=== PATIENT | female | born 1960 | race Caucasian/White ===

== ENCOUNTER → 2018-02-08 13:02 | Outpatient (CLI) | payer MEDICAID, SELFPAY ==
--- NOTE | 2018-02-08 13:15 | CT_ITS ---
STUDY: LOW DOSE CT LUNG CANCER SCREENING REASON FOR EXAM: Female, 57 years old. COPD. Tobacco abuse. RADIATION DOSAGE (If Supplied By Facility): CTDIvol = ( 2.01 ) mGy, DLP = ( 59.92 ) mGycm TECHNIQUE: No contrast was administered. Low dose technique was utilized (average mAS-38 and kVp 120). 1.25 mm axial source images with a slice interval of 1.25-mm were reconstructed in lung windows. 2.5 mm axial source images with a slice interval of 2.5-mm were reconstructed in lung windows. 5.0 mm axial source images with a slice interval of 5.0-mm were reconstructed in soft tissue windows. Nodule measured using lung windows on PACS and/or independent workstation with automated measurement of minimum and maximum diameter. Nodule measurement reported as average diameter rounded to the nearest whole number. Growth is defined as an increase ins size of greater than 1.5 mm. COMPARISON: None. NODULES: Total lung nodules (excluding granulomas): 0 Emphysema: There is emphysematous changes of the lungs.. A small right pleural effusion which invaginates into the upper oblique fissure. At the right lung base there is a air containing focus containing soft tissue along the posterior pleural margin right lower lobe suggesting a cavitary lesion. This measures 3.5 x 1.3 x 2.8 cm. Endobronchial lesion: None Aorta: There is atherosclerotic changes of the thoracic aorta without aneurysm. Coronary arteries: There are coronary artery calcifications. Heart: The heart is normal in size. There is a small pericardial effusion. Pulmonary artery: Normal Mediastinal nodes: There is nonspecific subcentimeter paratracheal and precarinal lymphadenopathy. Other chest and abdominal findings: There are minimal degenerative changes lumbar spine. There is diffuse ascites seen within the abdomen. CT/Low Dose CT Lung Screening IMPRESSION: Lung-RADS category S IMPORTANT NOTES FOR USE: ACR Lung-RADS Version 1.0 Assessment Categories Release Date: September 11, 2013 Category: Coded 0-4 bases on nodule(s) with highest degree of suspicion. Negative screen is defined as categories 1 and 2; a positive screen is defined as categories 3 and 4. Category 3 and 4A nodules that are unchanged on interval CT should be coded as category 2, and individuals returned to screening in 12 months. Category 4X: Category 3 or 4 nodules with additional imaging findings that increase the suspicion of lung cancer, such as spiculation, GGN that doubles in size in 1 year, enlarged lymph notes, etc. Category Modifiers: S (significant finding unrelated to lung cancer) and C (prior history of treated lung cancer) may be added to the 0-4 Lung-RADS Electronically Signed: Reggie Molina DO at 19:40 EDT Tel [phone], Service support ,
== END ==
PROVIDERS: Referring Provider Nurse Practitioner Family; Visit Provider Nurse Practitioner Family
DX: J44.9 Chronic obstructive pulmonary disease, unspecified (principal)
CPT/HCPCS: G0297

== ENCOUNTER → 2018-02-19 08:32 | Outpatient (CLI) | payer MEDICAID, SELFPAY ==
--- NOTE | 2018-02-19 08:47 | BI_ITS ---
MAMMOGRAPHY - BILATERAL SCREENING 3-D NAIDA SYNTHESIS REASON FOR EXAM: Female, 57 years old. Bilateral Screening 3-D tomosynthesis PERTINENT HISTORY: Asymptomatic. Recent loss 50 pounds. Recent diagnosis cirrhosis. No significant family history given. TECHNIQUE: 2-D mammograms and 3-D Naida synthesis of the breast (s) were performed. CAD was performed. COMPARISON: None available. FINDINGS: The breast composition is composed of scattered fibroglandular density. Scattered benign calcifications are seen. No dense spiculated masses or suspicious microcalcifications are identified. No architectural distortion is identified. There is no nipple retraction. However, periareolar bilateral skin thickening is suggested versus compression. BI/SCREENING MAMM (CAD), BILAT IMPRESSION: No definitive mammographic sign of malignancy identified. Increased density areolar and periareolar regions bilaterally, may be due to skin thickening versus compression projection. Also chest wall edema patient with cirrhosis and ascites may be present bilaterally. Clinical correlation recommended. Routine yearly mammograms recommended. ASSESSMENT CATEGORY: BIRADS Category 2: Benign. A letter regarding these results will be sent to the patient by the facility within 30 days. FOLLOW UP RECOMMENDATION: Yearly follow up mammogram recommended. (A) Clinical correlation recommended for periareolar bilateral skin thickening versus compression projection recommended. Comparison to any prior mammograms would be helpful. Negative mammographic results should not deter biopsy as a palpable lesion should be followed based on clinical grounds and biopsy performed if clinically persistent for 3 months or increasing size. Approximately 10% of breast cancers are not detected by mammography. A normal mammogram should not delay biopsy of a clinically suspicious abnormality. Dense breast tissue may obscure neoplasm. Electronically Signed: Sahil Francisco, at 18:02 EDT Tel , Service support ,
== END ==
PROVIDERS: Referring Provider Nurse Practitioner Family; Visit Provider Nurse Practitioner Family
DX: Z12.31 Encounter for screening mammogram for malignant neoplasm of breast (principal)
CPT/HCPCS: 77063; 77067

== ENCOUNTER → 2018-03-09 12:11 | Outpatient (CLI) | payer MEDICAID, SELFPAY ==
[2018-03-09 12:42] VITALS: PULSE 102; PULSE 104; PULSE 106; PULSE 107; PULSE 91; PULSE 94; O2SAT 100
--- NOTE | 2018-03-10 11:19 | PCM.PSN.6M ---
PSN 6 Minute Walk Test - 6 Minute Walk Test 6 Minute Walk Test: 6 Minute Walk Test PSN:6-Minute Walk Test Start: 03/09/18 12:42 Freq: Status: Active Protocol: RESP.6MINW Document 03/09/18 12:42 YADI (Rec: 03/09/18 12:46 YADI [id number]) 6 Minute Walk Test Date Performed 03/09/18 Time Performed 12:30 Height 5 ft Weight: 115 lb Weight in Pounds 115.[address]: Israel Gonzalez Assistive device used: None Pre-test Oxygen Delivery Method Room Air Pulse Ox (%) 100 Pulse Rate (60-100 beats/min) 94 Dyspnea Anthony Scale (0-10) 0.5 Exertion Anthony Scale (6-20) 6 1st minute Oxygen Delivery Method Room Air Pulse Ox (%) 100 Pulse Rate (60-100 beats/min) 102 H 2nd minute Oxygen Delivery Method Room Air Pulse Ox (%) 100 Pulse Rate (60-100 beats/min) 107 H 3rd minute Oxygen Delivery Method Room Air Pulse Ox (%) 100 Pulse Rate (60-100 beats/min) 106 H 4th minute Oxygen Delivery Method Room Air Pulse Ox (%) 100 Pulse Rate (60-100 beats/min) 104 H 5th minute Oxygen Delivery Method Room Air Pulse Ox (%) 100 Pulse Rate (60-100 beats/min) 104 H 6th minute Oxygen Delivery Method Room Air Pulse Ox (%) 100 Pulse Rate (60-100 beats/min) 102 H Dyspnea Anthony Scale (0-10) 0.5 Exertion Anthony Scale (6-20) 12 Post-test Oxygen Delivery Method Room Air Pulse Ox (%) 100 Pulse Rate (60-100 beats/min) 91 Full Laps Walked 15 Partial Lap, Number of Tiles Walked 20 Total Distance Walked (ft) 905 - Interpretation Interpretation: The patient ambulated 905 feet over the course of 6 minutes beginning on room air without assistive devices or breaks. Pretesting oxygen saturation was noted to be 100% on room air. With ambulation, the kike oxygen saturation was 100%. There was no significant exertional oxygen desaturation. - Recommendations Recommendations: There is no indication for the use of supplemental oxygen.
== END ==
PROVIDERS: Referring Provider Internal Medicine Critical Care Medicine; Visit Provider Internal Medicine Critical Care Medicine
DX: J44.9 Chronic obstructive pulmonary disease, unspecified (principal); F17.210 Nicotine dependence, cigarettes, uncomplicated
CPT/HCPCS: 94618

== ENCOUNTER → 2018-03-10 13:19 | Outpatient (CLI) | payer MEDICAID, SELFPAY ==
--- NOTE | 2018-03-10 13:21 | CT_ITS ---
STUDY: CT CHEST WITH CONTRAST REASON FOR EXAM: Female, 57 years old. Shortness of breath, cough, follow-up right-sided lung nodule RADIATION DOSAGE (If Supplied By Facility): CTDIvol = ( 10.05 ) mGy, DLP = ( 229.44 ) mGycm TECHNIQUE: Transaxial imaging was performed following intravenous administration of 100 ml of Isovue 300 contrast material. Individualized dose optimization techniques were used for this CT. COMPARISON: Prior study of 02/08/2018 FINDINGS: There is a pleural-based density of the posterior right lung base measuring 3.0 x 1.4 x 2.4 cm slightly decreased in size in the interval. This previously measured 3.5 x 1.3 x 2.8 cm. There has been interval resolution of a small right-sided effusion noted previously. The heart size is within normal limits. There is a trace pericardial effusion. Coronary arterial calcific lesions are present. Normal mediastinum. Normal hilar regions. Normal enhanced pulmonary arteries. The calcified plaques of the thoracic aorta. There are multi-level degenerative changes of the thoracic spine. There is a large amount of intra-abdominal ascites. There is a subcentimeter low-attenuation focus at the dome of the right hepatic lobe measuring cyst density. CT/Chest WITH Contrast IMPRESSION: Decrease in size of previously noted pleural-based density of the posterior right lung base previously measuring 3.0 x 1.4 x 2.[address] follow-up is recommended. There has been interval resolution of a small right-sided effusion previously noted. Trace pericardial effusion. Large amount of intra-abdominal ascites. Electronically Signed: Joon Rubio MD at 21:01 EDT , Service support ,
== END ==
PROVIDERS: Referring Provider Internal Medicine Critical Care Medicine; Visit Provider Internal Medicine Critical Care Medicine
DX: R93.89 Abnormal findings on diagnostic imaging of other specified body structures (principal)
CPT/HCPCS: 71260; Q9967

== ENCOUNTER → 2018-03-24 12:42 | Outpatient (CLI) | payer MEDICAID, SELFPAY ==
--- NOTE | 2018-03-25 08:22 | PFT ---
INTRODUCTION: The patient is a 57-year-old female that presents for pulmonary function studies secondary to a diagnosis of COPD. Respiratory therapy reports good patient effort. Bronchodilators were used during testing. INTERPRETATION: Forced expiration spirometry demonstrates the presence of a mild large airways obstructive ventilatory defect. There was no significant response to aerosolized bronchodilators. Spirograms are of good quality and do not plateau indicating slow emptying of the lungs. Body plethysmography was performed and reveals a mildly elevated TLC to 122% of predicted, indicative of a mild degree of hyperinflation. Diffusing capacity by single breath CO is within normal limits at 76% of predicted. IMPRESSION: These pulmonary function studies demonstrate the presence of an irreversible mild large airways obstructive ventilatory defect with an associated very mild degree of hyperinflation and preserved diffusing capacity.
== END ==
PROVIDERS: Referring Provider Internal Medicine Critical Care Medicine; Visit Provider Internal Medicine Critical Care Medicine
DX: J44.9 Chronic obstructive pulmonary disease, unspecified (principal); F17.210 Nicotine dependence, cigarettes, uncomplicated
CPT/HCPCS: 94060; 94726; 94729

== ENCOUNTER → 2018-04-20 13:11 | Outpatient (CLI) | payer MEDICAID, SELFPAY ==
[2018-04-13 13:03] VITALS: BMI 22.6
[2018-04-20 13:35] LABS: Platelet Count 200 K/mm3 (150-450)
[2018-04-20 13:46] LABS: International Normalized Ratio 1.7; Prothrombin Time (Protime)PT. 20.3 SECONDS (11.7-14.9)
[2018-04-20 13:47] LABS: Partial Thromboplast Time 39.3 Seconds (24.1-36.2)
== END ==
PROVIDERS: Visit Provider Nurse Practitioner Acute Care
DX: R91.8 Other nonspecific abnormal finding of lung field (principal)
CPT/HCPCS: 36415; 85049; 85610; 85730

== ENCOUNTER → 2018-04-26 09:57 | Outpatient (CLI) | payer MEDICAID, SELFPAY ==
[2018-04-13 13:03] VITALS: BMI 22.6
[2018-04-26 10:37] LABS: International Normalized Ratio 1.7; Prothrombin Time (Protime)PT. 19.9 SECONDS (11.7-14.9)
[2018-04-26 10:38] LABS: Partial Thromboplast Time 37.9 Seconds (24.1-36.2)
--- OUTSIDE RECORDS SUMMARY | 2018-06-12 10:16 | XMS RPT_ITS ---
:1960 Author Organization OHIP Support Name Relationship Address Phone YAEL MATTHEWSA Unavailable Unavailable + APALACHICOLAANJELICACECIL Unavailable [address] + [place] [address] APALACHICOLA, CECIL Unavailable Unavailable + APALACHICOLA, CECIL Unavailable [address] + [place] [address] APALACHICOLA, CECIL Unavailable [address] + [place] [address] UE Unavailable Unavailable Unavailable BYRON, CECIL Unavailable [address] + [place] [address] UE Unavailable Unavailable Unavailable BYRON, CECIL Unavailable [address] + [place] [address] UE Unavailable Unavailable Unavailable BYRON, CECIL Unavailable [address] + [place] [address] UE Unavailable Unavailable Unavailable BYRON, CECIL Unavailable [address] + [place] [address] UE Unavailable Unavailable Unavailable BYRON, CECIL Unavailable Unavailable + APALACHICOLA, CECIL Unavailable [address] + [place] [address] BYRON, CECIL Unavailable Unavailable + BYRON, CECIL Unavailable [address] + [place] [address] BYRON, CECIL Unavailable Unavailable + BYRON, CECIL Unavailable [address] + [place] [address] BYRON, CECIL Unavailable Unavailable + BYRON, CECIL Unavailable [address] + [place] [address] BYRON, CECIL Unavailable [address] + [place] [address] UE Unavailable Unavailable Unavailable BYRON, CECIL Unavailable Unavailable + BYRON, CECIL Unavailable [address] + [place] [address] BYRON, CECIL Unavailable [address] + [place] [address] UE Unavailable Unavailable Unavailable BYRON, CECIL Unavailable [address] + [place] [address] UE Unavailable Unavailable Unavailable BYRON, CECIL Unavailable Unavailable + BYRON, CECIL Unavailable [address] + [place] [address] BYRON, CECIL Unavailable [address] + [place] [address] UE Unavailable Unavailable Unavailable BYRON, CECIL Unavailable Unavailable + BYRON, CECIL Unavailable [address] + [place] [address] BYRON, CECIL Unavailable [address] + [place] [address] UE Unavailable Unavailable Unavailable BYRON, CECIL Unavailable Unavailable + BYRON, CECIL Unavailable [address] + [place] [address] BYRON, CECIL Unavailable Unavailable + BYRON, CECIL Unavailable [address] + [place] [address] BYRON, CECIL Unavailable [address] + [place] [address] UE Unavailable Unavailable Unavailable BYRON, CECIL Unavailable [address] + [place] [address] UE Unavailable Unavailable Unavailable BYRON, CECIL Unavailable Unavailable + BYRON, CECIL Unavailable [address] + [place] [address] BYRON, CECIL Unavailable Unavailable + BYRON, CECIL Unavailable [address] + [place] [address] BYRON, CECIL Unavailable [address] + [place] [address] UE Unavailable Unavailable Unavailable BYRON, CECIL Unavailable [address] + [place] [address] UE Unavailable Unavailable Unavailable BYRON, CECIL Unavailable [address] + [place] [address] UE Unavailable Unavailable Unavailable BYRON, CECIL Unavailable Unavailable + BYRON, CECIL Unavailable [address] + [place] [address] BYRON, CECIL Unavailable [address] + [place] [address] UE Unavailable Unavailable Unavailable BYRON, CECIL Unavailable Unavailable + BYRON, CECIL Unavailable [address] + [place] [address] BYRON, CECIL Unavailable [address] + [place] [address] UE Unavailable Unavailable Unavailable BYRON, CECIL Unavailable Unavailable + BYRON, CECIL Unavailable [address] + [place] [address] BYRON, CECIL Unavailable Unavailable + BYRON, CECIL Unavailable [address] + [place] [address] BYRON, CECIL Unavailable [address] + [place] [address] UE Unavailable Unavailable Unavailable BYRON, CECIL Unavailable Unavailable + BYRON, CECIL Unavailable [address] + [place] [address] BYRON, CECIL Unavailable Unavailable + BYRON, CECIL Unavailable [address] + [place] [address] BYRON, CECIL Unavailable Unavailable + BYRON, CECIL Unavailable [address] + [place] [address] BYRON, CECIL Unavailable [address] + [place] [address] APALACHICOLA, CECIL Unavailable [address] + [place] [address] BYRON, CECIL Unavailable Unavailable + BYRON, CECIL Unavailable [address] + [place] [address] BYRON, CECIL Unavailable [address] + [place] [address] BYRON, CECIL Unavailable Unavailable + BYRON, CECIL Unavailable Unavailable + BYRON, CECIL Unavailable Unavailable + BYRON, CECIL Unavailable Unavailable + BYRON, CECIL Unavailable Unavailable + BYRON, CECIL Unavailable Unavailable + BYRON, CECIL Unavailable Unavailable + BYRON, CECIL Unavailable Unavailable + BYRON, CECIL Unavailable Unavailable + BYRON, CECIL Unavailable Unavailable + BYRON, CECIL Unavailable Unavailable + Care Team Providers Name Role Phone CMBRITTANIE Attending Unavailable PHYSICIAN, NONE Primary Care Unavailable CLARENCE SHAIKH MD Consulting Unavailable PHYSICIAN, NONE Primary Care Unavailable CLARENCE SHAIKH MD Admitting Unavailable CLARENCE SHAIKH MD Attending Unavailable YOSHI MLULINS MD Consulting Unavailable CLARENCE SHAIKH MD Consulting Unavailable CLARENCE SHAIKH MD Attending Unavailable PHYSICIAN, NONE Primary Care Unavailable CLARENCE SHAIKH MD Attending Unavailable CLARENCE SHAIKH MD Primary Care Unavailable REFERRING REFERRING, PHY PHY WO ID~[id number] Primary Care Unavailable ARIAN DUNHAM, DR. SHEILA aGmino Attending Unavailable RIK SIMENTAL Attending Unavailable REFERRING REFERRING, PHY PHY WO ID~[id number] Primary Care Unavailable CLARENCE SHAIKH MD Primary Care Unavailable YESSENIA FERNANDES DO Attending Unavailable ANDRESSA VELOZ Attending Unavailable CLARENCE SHAIKH MD Primary Care Unavailable PHYSICIAN, NONE Primary Care Unavailable YOSHI MULLINS MD Consulting Unavailable CLARENCE JEFFERSON Attending Unavailable YOSHI MULLINS MD Referring Unavailable CLARENCE JEFFERSON Attending Unavailable PHYSICIAN, NONE Primary Care Unavailable KELLEY RAMIREZ MD. JOYCE W Consulting Unavailable KELLEY RAMIREZ MD. JOYCE Rodriguez Admitting Unavailable KELLEY RAMIREZ MD. JOYCE Rodriguez Attending Unavailable SWIHART ELECTRONIC SCALE SUBASSEMBLER, KD L Primary Care Unavailable YOSHI MULLINS MD Attending Unavailable SWIHART ELECTRONIC SCALE SUBASSEMBLER, KD L Primary Care Unavailable YOSHI MULLINS MD Attending Unavailable SWIHART ELECTRONIC SCALE SUBASSEMBLER, KD L Primary Care Unavailable YOSHI MULLINS MD Attending Unavailable SWIHART ELECTRONIC SCALE SUBASSEMBLER, KD L Primary Care Unavailable YOSHI MULLINS MD Attending Unavailable SWIHART ELECTRONIC SCALE SUBASSEMBLER, KD L Primary Care Unavailable YOSHI MULLINS MD Attending Unavailable SWIHART ELECTRONIC SCALE SUBASSEMBLER, KD L Primary Care Unavailable YOSHI MULLINS MD Attending Unavailable SWIHART ELECTRONIC SCALE SUBASSEMBLER, KD L Primary Care Unavailable YOSHI MULLINS MD Attending Unavailable SWIHART ELECTRONIC SCALE SUBASSEMBLER, KD L Primary Care Unavailable YOSHI MULLINS MD Attending Unavailable SWIHART ELECTRONIC SCALE SUBASSEMBLER, KD L Primary Care Unavailable YOSHI MULLINS MD Attending Unavailable SWIHART ELECTRONIC SCALE SUBASSEMBLER, KD L Primary Care Unavailable YOSHI MULLINS MD Attending Unavailable SWIHART ELECTRONIC SCALE SUBASSEMBLER, KD L Primary Care Unavailable YOSHI MULLINS MD Attending Unavailable SWIHART ELECTRONIC SCALE SUBASSEMBLER, KD L Primary Care Unavailable YOSHI MULLINS MD Attending Unavailable SWIHART ELECTRONIC SCALE SUBASSEMBLER, KD L Primary Care Unavailable YOSHI MULLINS MD Attending Unavailable SWIHART ELECTRONIC SCALE SUBASSEMBLER, KD L Primary Care Unavailable YOSHI MULLINS MD Attending Unavailable SWIHART ELECTRONIC SCALE SUBASSEMBLER, KD L Primary Care Unavailable YOSHI MULLINS MD Attending Unavailable SWIHART ELECTRONIC SCALE SUBASSEMBLER, KD L Primary Care Unavailable YOSHI MULLINS MD Attending Unavailable SWIHART ELECTRONIC SCALE SUBASSEMBLER, KD L Primary Care Unavailable YOSHI MULLINS MD Attending Unavailable SWIHART ELECTRONIC SCALE SUBASSEMBLER, KD L Primary Care Unavailable YOSHI MULLINS MD Attending Unavailable SWIHART ELECTRONIC SCALE SUBASSEMBLER, KD L Primary Care Unavailable YOSHI MULLINS MD Attending Unavailable SWIHART ELECTRONIC SCALE SUBASSEMBLER, KD L Primary Care Unavailable YOSHI MULLINS MD Attending Unavailable SWIHART ELECTRONIC SCALE SUBASSEMBLER, KD L Primary Care Unavailable YOSHI MULLINS MD Attending Unavailable SWIHART ELECTRONIC SCALE SUBASSEMBLER, KD L Primary Care Unavailable YOSHI MULLINS MD Attending Unavailable PHYSICIAN, NONE Primary Care Unavailable YOSHI MULLINS MD Attending Unavailable PHYSICIAN, NONE Primary Care Unavailable YOSHI MULLINS MD Attending Unavailable PHYSICIAN, NONE Primary Care Unavailable YOSHI MULLINS MD Attending Unavailable PHYSICIAN, NONE Primary Care Unavailable Tasia Jenkins Attending Unavailable Tasia Jenkins Referring [facility]available [facility] Primary Care Unavailable Israel Gonzalez D.O. Attending Unavailable Israel Gonzalez D.O. Referring Unavailable Tasia Jenkins Attending Unavailable [facility] Referring Unavailable [facility] Primary Care Unavailable Ashelfah, Ghasem Admitting Unavailable Ashelfah, Ghasem Referring Unavailable Isai Brown Attending Unavailable Ashelfah, Ghasem Admitting Unavailable Ashelfah, Ghasem Attending Unavailable Ashelfah, Ghasem Referring Unavailable [facility] Primary Care Unavailable Ashelfah, Ghasem Consulting Unavailable Ashelfah, Ghasem Admitting Unavailable Sebastien Frances Attending Unavailable Ashelfah, Ghasem Referring Unavailable [facility] Primary Care Unavailable Kevin, Isai Consulting Unavailable Joaquint NASRIN Kd Referring Unavailable [facility] Primary Care Unavailable [place] NASRIN, Kd Consulting Unavailable Kd Huff Attending Unavailable [place] MARKETING PRODUCTION COORDINATOR, Kd Referring Unavailable [facility] Primary Care Unavailable Swiyves ALEXANDRA Kd Attending Unavailable Israel Brown, D.O. Attending Unavailable [facility] Referring Unavailable Israel Gonzalez D.O. Attending Unavailable Israel Gonzalez D.O. Referring Unavailable [facility] Primary Care Unavailable Kayla ALEXANDRA, Kd Consulting Unavailable Israel Gonzalez D.O. Attending Unavailable Israel Gonzalez D.O. Referring Unavailable [facility] Primary Care Unavailable Kayla ALEXANDRA, Kd Consulting Unavailable Israel Gonzalez D.O. Attending Unavailable Israel Gonzalez D.O. Referring Unavailable [facility] Primary Care Unavailable Kayla ALEXANDRA, Kd Consulting Unavailable [place]helf[place], Ghasem Admitting Unavailable Autumn Segovia NP-C Attending Unavailable Ashelfah, Ghasem Referring Unavailable [facility] Primary Care Unavailable Kevin, Isai Consulting Unavailable Ashelfah, Ghasem Admitting Unavailable Kevin, Isai Attending Unavailable Ashelfah, Ghasem Referring Unavailable [facility] Primary Care Unavailable Kevin, Isai Consulting Unavailable Israel Gonzalez D.O. Attending Unavailable Israel Gonzalez D.O. Referring Unavailable Tasia Jenkins Attending Unavailable [facility] Referring Unavailable Tasia Jenkins Attending Unavailable Tasia Jenkins Referring Unavailable [facility] Primary Care Unavailable Kayla ALEXANDRA, Kd Consulting Unavailable Tasia Jenkins Attending Unavailable [facility] Primary Care Unavailable PROBLEMS PROBLEMS DATE TYPE CONDITION / CODE ATTENDING STATUS SOURCE 04/27/2018 Unknown R91.8 - Other Jenkins, Active Stanley nonspecific [facility] abnormal finding of Hospital lung field / Repository R91.8(ICD-10) 04/29/2018 Unknown J44.9 - Chronic Israel Gonzalez, Active [place] obstructive D.O. [facility] pulmonary disease, Hospital unspecified / Repository J44.9(ICD-10) 03/09/2018 Unknown F17.210 - Nicotine Israel Gonzalez, Active [place] dependence, D[facility], [facility] uncomplicated / Repository F17.210(ICD-10) 03/01/2018 Unknown R93.89 - Abnormal Israel Gonzalez, Active [place] findings on D.[facility]. [facility] other specified Repository body structures / R93.89(ICD-10) 03/28/2018 Unknown Z12.31 - Encounter Kayla ALEXANDRA, Active [place] for screening [facility] mammogram for [facility] malignant neoplasm Repository of breast / Z12.31(ICD-10) PROCEDURES PROCEDURES No Procedure Records FoundRESULTS RESULTS EMERGENCY DEPARTMENT Observed: 06/06/2018 Status: F Source: [place] SUMMARY 9:22 PM [facility] HOSPITAL REPOSITORY [facility] Medical Records Department [address] [place] [address] Emergency Department Summary 05/31/18 1453 MR#: [id number] Acct: [id number] Name: KEYLA MATTHEWS Rep #: [id number] : 1960 58 From: Evelyn Fuentes MD PCP: [facility] Status: DIS IN - ER Visit Summary Date of Service: 05/31/18 Chief Complaint: Abdominal pain, nausea and vomiting History of Present Illness: The patient is a 58 F who presents for 5 days of worsening abdominal pain and 3 days of nausea and vomiting. Patient has a history of cirrhosis and receives a weekly therapeutic paracentesis. 5 days ago she began having epigastric pain beyond her baseline. She had her therapeutic paracentesis and an albumin infusion the next day, with no improvement of her pain. 3 days ago she began having nausea and vomiting. She has not kept anything down since then. She denies any coffee-ground emesis or hematemesis. She denies diarrhea and states her stools were normal but then decreased in frequency. Today she had a black mucousy stool. She denies fever, chest pain, shortness of breath beyond her baseline, or any other complaints. Patient is a smoker and has lung issues. She uses an albuterol inhaler. She has not been able to keep any of her medications down since Wednesday. Physical Examination: Vital signs: afebrile, hemodynamically stable, no hypoxia on room air General: Cachectic with a protruding abdomen, in no distress Skin: warm, dry, no rash, no pallor, old bruises noted on the upper extremities HEENT: normocephalic and atraumatic; PERRL, EOMI, dry mucous membranes Cardiovascular: regular rate and rhythm without murmurs, no peripheral edema, 2+ pulses all distal extremities Respiratory: No increased work of breathing, lungs are diffusely rhonchorous consistent with smoker's lung Abdominal: Abdomen is distended, diffuse tenderness especially in the epigastrium, no guarding or rebound, no masses, rectal exam showed good tone, nontender, brown stool on glove MSK: Moves all extremities, no deformities, normal strength Neuro: Awake and alert, oriented 4. No facial droop, sensation and motor function intact and symmetric Test Results: Abnormal Lab Results WBC 17.2 H Medications Given Albumin Human () 25 gm in 100 mls @ 60 mls/hr IV X1 ONE Stop: 05/31/18 18:27 Discontinued Medications Sodium Chloride () 1,000 mls @ 500 mls/hr IV .Q2H ONE Stop: 05/31/18 16:50 Last Admin: 05/31/18 15:16 Dose: 500 mls/hr Piperacillin Sod/Tazobactam Sod (Zosyn) 3.375 gm in 50 mls @ 100 mls/hr IV X1 ONE Stop: 05/31/18 17:08 Morphine Sulfate () 4 mg IV X1 ONE Stop: 05/31/18 14:52 Last Admin: 05/31/18 15:16 Dose: 4 mg Morphine Sulfate () 4 mg IV X1 ONE Stop: 05/31/18 17:13 Ondansetron HCl (Zofran) 4 mg IV X1 ONE Stop: 05/31/18 14:52 Last Admin: 05/31/18 15:16 Dose: 4 mg Emergency Department Course and Treatment: Patient was given IV fluids, morphine and Zofran for symptomatic relief. Patient is afebrile. Because her main pain complaint is epigastric, and there is little differentiation in her habitus between her epigastrium and her lower substernal region, EKG and troponin were included in the workup. EKG showed NSR with no ischemic changes. Because patient does have severe cirrhosis with ascites, spontaneous bacterial peritonitis is high on the differential. CT abdomen and pelvis was performed to look for alternative causes of patient's abdominal pain. She does have significant leukocytosis of 17,000. Because of the worse pain than normal and the leukocytosis, a therapeutic paracentesis was performed and patient was started empirically on Zosyn for treatment of spontaneous bacterial peritonitis. Fluid analysis is pending. Patient was also given albumin, as she has elevated bilirubin, creatinine, and hypoalbuminemia. Diagnostic Paracentesis procedure note: Consent was obtained. A large fluid pocket in the lateral left lower quadrant was identified using bedside ultrasound. The area was prepped and draped in a sterile fashion. The area was locally anesthetized with 1% lidocaine. A small sherman was performed to the skin and a 21-gauge needle was introduced into the peritoneal cavity. There was immediate return of clear yellow ascitic fluid. 40 cc was collected. The needle was withdrawn and patient tolerated the procedure well. No ascitic fluid leak was noted. There was no hemorrhage after the procedure. Patient was discussed with Dr. Miranda and admitted for IV antibiotics and further treatment of suspected spontaneous bacterial peritonitis while the cultures are pending. Treatment Plan: [] Disposition: Impression: Abdominal pain, history of cirrhosis with ascites, concern for spontaneous bacterial peritonitis, chronic kidney disease This note was generated with [email or web address] dictation software. It may contain incorrect words, spelling, and punctuation that were not noted in review of the chart prior to signing ED Disposition - Plan for ED Patient: Chief Complaint: Abd Pain Referrals: Anish Lawrence,St[facility] Green [Primary Care Provider] - What to do if you have Problems For any increased pain, shortness of breath, bleeding, nausea or vomiting, chest pain, or any unexpected problems, contact your Primary Care Provider. Call [facility] ([phone]) or report to the closest Emergency Room. Call 911 if necessary. 06/06/182121 <Electronically signed by Evelyn Fuentes MD> Date Evelyn Fuentes MD Cosigner Signature (If Indicated): Date CC: [facility] DISCHARGE SUMMARY Observed: 06/03/2018 Status: F Source: NICOLETTE 5:28 PM [facility] REPOSITORY [facility] Medical Records Department [address] [place] [address] Discharge Summary 06/03/18 1138 MR#: [id number] Acct: [id number] Name: KEYLA MATTHEWS Rep #: [id number] : 1960 58 From: Isai Brown MD PCP: [facility] Status: DIS IN Y [id number] Date and Diagnosis Date of Admission: 05/31/18 Date of Discharge: 06/03/18 - Primary Discharge Diagnosis Active and Suspected Problems (Last Reviewed 05/04/18 @ 13:46 by YEMI Caldwell) Anemia (Acute) Renal failure (Acute) Spontaneous bacterial peritonitis (Suspected) - Secondary Discharge Diagnosis Chronic Problems (Last Reviewed 05/04/18 @ 13:46 by Tasia Jenkins NP-C) Alcoholic cirrhosis of liver (Chronic) Tobacco abuse (Chronic) Stage 1 mild COPD by GOLD classification (Chronic) Lung mass (Chronic) Hospital Course and Treatment Summary of Care Provided: The patient is a 58 year old F with history of alcoholic cirrhosis decompensated with ascites and splenomegaly had therapeutic paracentesis on 06/01/2018. 210 mL brad colored fluid was drained under ultrasound guidance. Fluid analysis shows total WBC 195 with 47 polynuclear cells that is negative for SBP. Gram stain of fluid culture still not show growth. Fluid total protein is 1.7. when Ascites fluid total protein is less than 1.1, suspicion for SBP is high. Continue ceftriaxone on the basis of clinical suspicion Low-dose Motrin for musculoskeletal rib pain and pain got better. And the pain got better. 1. Possible SBP, status post [id number] paracentesis 06/01/2018 with removal of 2810 mL. Patient receives weekly paracentesis at [facility]. CT of abdomen on admission showed a cirrhosis, ascites, distended gallbladder without stones, bowel wall thickening consistent with possible colitis. Demineralization and numerous compression fractures. Paracentesis fluid cultures pending. Leukocytosis improved. Had ceftriaxone and discharged on Cipro 250 mg twice daily for 2 more days to complete a total of 7 days course. Echocardiogram shows an EF of 65%, stage II diastolic dysfunction, RVSP estimated to be 41 mmHg. All of acetic fluid culture is negative but patient was treated empirically on clinical suspicion. 2. Acute kidney injury or acute kidney injury and CKD from recurrent paracentesis-suspect secondary to dehydration from poor oral intake. Improving. Trend BMP. Unknown baseline creatinine. Patient needs to be read by investigation division lieutenant. Patient might need need to be evaluated by investigation division lieutenant and consider Zaroxolyn. With creatinine clearance of 20 mL/min, loop diuretics not effective. 3. Acute on chronic normochromic normocytic anemia with Hemoccult positive stools-status post 2 units PRBC. CBC stable. IV PPI. 4. Alcoholic cirrhosis-stable. 5. Chronic COPD-no acute exacerbation. 6. Hypothyroidism-continue Synthroid regimen. 7. GERD-continue PPI. 8. Chronic lung mass-continue outpatient follow-up with CT. DVT prophylaxis-SCDs Discharge medication reconciliation done. Discharge follow- up instructions completed. Discharge process discussed with the patient and all questions were answered to patient's satisfaction.. Total time spent, exact 35 minutes on discharge meds reconciliation, examination, review of imaging and blood test and discussion with the patient on follow-up instructions. Subjective: Patient abdominal pain is much better. His mild abdominal swelling. Patient has CKD stage IV and diuretics Lasix is not going to work. Objective: General: Alert, Oriented x3, Cooperative HEENT: Atraumatic, PERRLA, EOMI, Normocephalic Neck: Supple, No JVD, Negative Carotid Bruits Lungs: Clear to auscultation, Air entry diminished in bilateral lung bases Cardiovascular: Regular rate, Regular Rhythm, Normal S1, Normal S2, No murmurs Abdomen: Bowel Sounds Present, Soft, Non Tender, Distended, no tenderness. Mild ascites. Extremities: No edema, Capillary Refill Less than 3 Seconds Skin: No rashes, No breakdown Musculoskeletal: No Tenderness to Palpation of Joints or Extremities, Cachexia, Muscle Wasting Neurological: Cranial nerves II-XII grossly intact, Deep Tendon Reflexes 2+/4 and Symmetrical, Neuro grossly intact Psych/Mental Status: Normal Affect, Appropriate - Physical Exam Vital Signs Temp Pulse Resp BP Pulse Ox 97.8 F 88 16 99/64 95 06/03/18 07:50 06/03/18 07:56 06/03/18 07:56 06/03/18 07:50 06/03/18 07:56 Oxygen Delivery Method [3] Room Air Oxygen Delivery Method [2] Room Air Oxygen Delivery Method [1 ( Room Air Initial Baseline)] Oxygen Delivery Method Room Air Weight: 107 lb 5.842 oz Body Mass Index (BMI) 20.9 Intake and Output for Last 24 Hours Intake Total 4198 / 4198 4224 / 4224 1043 / 1043 Output Total 2810 / 2810 Balance 1388 / 1388 4224 / 4224 1043 / 1043 Microbiology Past 72 Hours 05/31/18 16:50 Gram Stain - Final Laboratory Tests Past 24 Hrs WBC 8.2 RBC 2.98 L Hgb 8.7 L Discharge Activity: May Not Drive Call your doctor if you observe: Fever of 101 or Higher, Inability to urinate, Shortness of breath, Dizziness, Swelling in the ankles, Increased palpitations (irregular heartbeat), Uncontrolled pain Home Medications: Medications to take at Discharge cholecalciferol (vitamin D3) 50,000 unit capsule 50,000 unit PO QWEEK 02/28/18 hydroxyzine HCl 10 mg tablet 10 mg PO Q8 PRN 02/28/18 pantoprazole 40 mg tablet,delayed release 40 mg PO DAILY 02/28/18 Levothyroxine [Synthroid] 25 mcg PO DAILY 05/31/18 Tiotropium Br/Olodaterol HCl [Stiolto Respimat Inhal [place]] 2 puff INHALATION BID 05/31/18 Ciprofloxacin [Cipro] 250 mg PO BID #4 tablet 06/03/18 Following Prescrptions Were Given to Patient: Ciprofloxacin [Cipro] 250 mg PO BID #4 tablet Primary Care Physician: [facility] Melinda,Stuart Green [Primary Care Provider] - Please follow up with your Primary Care Physician in: in 1- 2 weeks Please Follow Up With: Ghanshyam Richard MD When: in 2 weeks for CKD Stage IV Medical Necessity - Tobacco Use Smoking Status: Current every day smoker Tobacco Use: Cigarettes Meaningful Use Info Meaningful Use Diagnoses (Choose all that apply): None applicable Code Visit Inpatient E AND M: 44717 Disch Hosp 06/03/18 1728 <Electronically signed by Isai Brown MD> Date Isai Brown MD Cosigner Signature (if applicable): Date CC: Isai Brown MD; [facility] Signed DISCHARGE INSTRUCTION Observed: 06/03/2018 Status: F Source: [place] 11:38 AM [facility] REPOSITORY [facility] Medical Records Department [address] [place] [address] Instructions for Home/Discharge Instructions 06/03/18 1047 MR#: [id number] Acct: [id number] Name: KEYLA MATTHEWS Rep #: [id number] : 1960 58 From: Isai Brown MD PCP: STUART LAWRENCE Status: ADM IN - Discharge Diagnoses Current Active Problems: Current Active and Chronic Problems (Last Reviewed 05/04/18 @ 13:46 by YEMI Caldwell) Anemia (Acute) Renal failure (Acute) Alcoholic cirrhosis of liver (Chronic) You will use the following diet at home:: Cardiac Your food should be the consistency of: Regular Discharge Activity: May Not Drive Call your doctor if you observe: Fever of 101 or Higher, Inability to urinate, Shortness of breath, Dizziness, Swelling in the ankles, Increased palpitations (irregular heartbeat), Uncontrolled pain Additional Instructions: Needs outpatient evaluation for liver and kidney transplant for patient of alcoholic cirrhosis and CKD stage IV Allergies/Adverse Reactions: Allergies No Known Allergies Allergy (Verified 05/31/18 14:33) Medications to take at Discharge cholecalciferol (vitamin D3) 50,000 unit capsule 50,000 unit PO QWEEK 02/28/18 hydroxyzine HCl 10 mg tablet 10 mg PO Q8 PRN 02/28/18 pantoprazole 40 mg tablet,delayed release 40 mg PO DAILY 02/28/18 Levothyroxine [Synthroid] 25 mcg PO DAILY 05/31/18 Tiotropium Br/Olodaterol HCl [Stiolto Respimat Inhal [place]] 2 puff INHALATION BID 05/31/18 Ciprofloxacin [Cipro] 250 mg PO BID #4 tablet 06/03/18 The following prescriptions were given: Ciprofloxacin [Cipro] 250 mg PO BID #4 tablet Primary Care Physician: Stuart Worerll [Primary Care Provider] - Please follow up with your Primary Care Physician in: in 1- 2 weeks Test Results: Test results from this visit will be discussed in further detail at your follow-up appointment, if applicable. Please Follow Up With: Ghanshyam Richard MD When: in 2 weeks for CKD Stage IV 06/03/18 1138 <Electronically signed by Isai Brown MD> Date Isai Brown MD CC: [facility] Signed CBC-COMPLETE BLOOD CNT Collected: 06/03/2018 Status: F Source: [place] NO DIFF 6:49 AM [facility] REPOSITORY TYPE CODE TESTS RESULT OUT OF RANGE REFERENCE UNITS LAB L100.1000 4.4-11.0 K/mm3 Normal WBC 8.2 LAB L100.1200 4.2-5.4 M/mm3 Low RBC 2.98 LAB L100.1300 12.0-15.0 g/dl Low HGB 8.7 LAB L100.1400 37-47 % Low HCT 26.6 LAB L100.1500 81-99 fL Normal MCV 89.3 LAB L100.1600 27.0-32.0 pg Normal MCH 29.2 LAB L100.1700 32-36 g/gl Normal MCHC 32.7 LAB L100.1810 11.6-14.6 % High RDW CV 19.7 LAB L100.1820 35.1-43.9 fl High RDW SD 60.8 LAB L100.1900 150-450 K/mm3 Normal PLT 192 LAB L100.2000 6.2-12.0 fl Normal MPV 10.2 Performed By: #### L100.0500 #### [facility] [address] [place], [place] [address], [address] BASIC METABOLIC Collected: 06/03/2018 Status: F Source: [place] PROFILE (BMP) 6:49 AM [facility] REPOSITORY TYPE CODE TESTS RESULT OUT OF RANGE REFERENCE UNITS LAB L501.0100 74-106 mg/dL Normal GLU 96 Result Comment: Please note revised GLUCOSE reference range effective 2017. LAB L501.1000 7-18 mg/dL High BUN 30 LAB L501.1100 0.55-1.02 mg/dL High CREAT,SERUM 2.22 Result Comment: The validity of the calculated GFR AND GFRAA in patients over 70 years has not been determined. Clinical correlation is essential. LAB L501.1110 >60 mL/min Low EST GFR 24 Result Comment: Non- GFR Calc LAB L501.1115 >60 mL/min Low EST GFR - AA 29 Result Comment: GFR Calc LAB L501.1255 ml/min Normal Estimated CRCL 20.08 LAB L501.1300 10-20 RATIO Normal BUN/CRE 13.5 LAB L501.2200 8.5-10 mg/dL Low .1 CA 7.8 LAB L501.5300 136-14 mmol/L Normal 5 NA 138 LAB L501.5600 3.5-5. mmol/L Normal 1 K 3.9 LAB L501.5900 98-107 mmol/L High CL 112 LAB L501.6100 21.0-3 mmol/L Low 2.0 CO2 14.0 LAB L501.6200 5-15 Normal GAP 12 Performed By: #### L500.2500 #### [facility] [address] [facility] [place], [address] 12 LEAD ELECTROCARDIOGRAM Observed: 06/02/2018 Status: F Source: [place] 3:42 PM [facility] REPOSITORY [facility] Cardiovascular Services [address] [place] [address] 12 Lead EKG 05/31/18 1507 MR#: [id number] Acct: [id number] Name: KEYLA MATTHEWS Rep #: [id number] : 1960 58 From: Mario Benson MD Attending Dr[facility] Status: ADM IN Ordering Dr: Evelyn Fuentes MD Date: 05/31/18 Location: U Sex: F C Admitted: 05/31/18 Test Reason : ABDOMINAL PAIN Blood Pressure : / mmHG Vent. Rate : 080 BPM Atrial Rate : 080 BPM P-R Int : 164 ms QRS Dur : 068 ms QT Int : 392 ms P-R-T Axes : -19 034 033 degrees QTc Int : 452 ms Normal sinus rhythm Low voltage QRS Borderline ECG Confirmed by SARAVANAN BABCOCK, MARIO ([id number]), online content editor MIGUEL FERNANDES ([id number]) on 06/02/2018 3:41:46 PM Referred By: José Miranda Confirmed By:MARIO BENSON MD 06/02/18 1001 Date Mario Benson MD CC: José Miranda; Evelyn Fuentes MD; Isai Brown MD; [facility] Signed BODY FLUID CELL Collected: 06/01/2018 Status: C Source: [place] COUNT+DIFF 2:45 PM [facility] REPOSITORY Order Comment: The reference range and other method performance specifications have not been established for this body fluid. The test must be integrated into the clinical context for interpretation. TYPE CODE TESTS RESULT OUT OF RANGE REFERENCE UNITS LAB L200.3380 0.000-0.000 10 3/ul High BFTC# 0.190 Result Comment: This is the Total Number of Nucleated Cell Types in the Body Fluid. LAB L200.3500 10 3/uL Normal 0.169 WBC/BF LAB L200.3510 % Normal 14.2 BF PMN WBC% LAB L200.3515 % Normal 85.8 BF MN WBC% LAB L200.3520 10 3/uL Normal 0.145 BF MN WBC# LAB L200.3525 10 3/uL Normal 0.024 BF PMN WBC# LAB L200.4400 Normal PATH COMM/BF Reviewed Result Comment: Negative for malignant cells. Please reference to corresponding cytology specimen [id number] Sergo Conner M.D. 06/03/18 AMENDED REPORT 06/03/18 1026 PATH COMM/BF previously reported as: May follow LAB L200.3100 SOURCE/BF PERITONEAL Normal FLUID LAB L200.3200 COLOR/BF YELLOW Normal LAB L200.3300 APPEAR/BF CLEAR Normal LAB L200.3400 /mm3 RBC/BF 568 Normal LAB L200.3600 % PMN 15 Normal LAB L200.3700 % LYMPH 64 Normal LAB L200.3800 % MONO/BF 11 Normal LAB L200.3900 % MESOTHELIAL 3 Normal LAB L200.3950 % MACROPHAGES 7 Normal LAB L200.4420 BFM 2ND SPEC SEE COMMENT Normal Performed By: #### L200.0200 #### [facility] [place], [address] Observed: 06/01/2018 Status: F Source: [place] CULTURE, BODY FLUID 2:45 PM [facility] REPOSITORY RESULTS CALLED TO SANAZ FERNANDES 06/01/18 1849 Marshall Patel. REPORT READ BACK BY SANAZ. Gram Stain Centrifuged Specimen? Culture performed on centrifuged specimen Gram Stain Red Blood Cells 4+ 3+ Gram positive cocci 2+ White Blood Cells 1+ Epithelial cells Body Fluid Cult Culture exhibits no growth. Cult, Anaerobic No growth in 5 days. Performed By: #### M100.1300 #### [facility] [address] [place], [address] CYTOLOGY, BODY FLUID / Collected: 06/01/2018 Status: F Source: [place] CSF 2:45 PM [facility] REPOSITORY TYPE CODE TESTS RESULT OUT OF RANGE REFERENCE UNITS LAB L350.1000 SEE Normal PATHOLOGY CYTOLOGY,BF REPORT /CSF Result Comment: Specimen submitted to Anatomical Pathology Department for testing. Performed By: #### L350.1000 #### [facility] [address] [place], [address] ECHOCARDIOGRAM COMPLETE Observed: 06/01/2018 Status: F Source: [place] 1:37 PM [facility] REPOSITORY [facility] Cardiovascular Services [address] [place] [address] Echo Complete 06/01/18 1009 MR#: [id number] Acct: [id number] Name: KEYLA MATTHEWS Rep #: [id number] : 1960 58 From: Juan Antonio James MD Attending [facility] Status: ADM IN Ordering Dr: José Miranda MD Date: 05/31/18 Location: U Sex: F C Admitted: 05/31/18 Reason For Study: DYSPNEA/SOB Procedure This was a 2D Doppler, Color Flow transthoracic echocardiogram. Exam performed portable in patient room. Left Ventricle Normal size and thickness. The estimated ejection fraction is 65 %. Stage 2 diastolic dysfunction. No regional wall motion abnormalities noted. Right Ventricle Normal size and thickness. Normal systolic function. Atria Normal left atrium. Normal right atrium. Normal atrial septum. Mitral Valve The mitral valve is structurally normal. No prolapse or stenosis seen. Trivial mitral valve insufficiency. Tricuspid Valve Normal tricuspid valve. Trivial tricuspid valve insufficiency. Right ventricular systolic pressure estimated to be 41 mmHg. Mild pulmonary hypertension. Aortic Valve Normal aortic valve. Trisinus/trileaflet aortic valve. Pulmonic Valve Normal pulmonic valve. Great Vessels Normal aortic root. Normal arch. Normal inferior vena cava. Inferior vena cava collapse with sniff. Pericardium/Pleural No pericardial effusion. MMode/2D Measurements AND Calculations LVIDd: 4.3 cm IVSd: 0.97 cm Ao root diam: 2.7 cm LVIDs: 3.0 cm LVPWd: 0.96 cm RVDd: 3.2 cm FS: 30.6 % LAV(MOD-bp): 64.1 ml LA A4 area: 20.6 cm2 LA dimension(2D): 4.2 cm LAV(MOD-bp) Indexed: 44.8 ml/m2 LAV(MOD-sp2): 63.5 ml LAV(MOD-sp4): 63.1 ml RA A4 area: 16.7 cm2 Doppler Measurements AND Calculations MV E max dennis: 138.7 cm/sec Lat Peak E' Dennis: 12.0 cm/sec Med Peak E' Dennis: 11.9 cm/sec MV A max dennis: 122.8 cm/sec E/E' lat: 11.5 E/E' med: 11.6 MV E/A: 1.1 Ao V2 max: 171.1 cm/sec LV V1 max: 121.0 cm/sec PA V2 max: 126.5 cm/sec Ao max P.7 mmHg LV V1 max P.9 mmHg Ao V2 mean: 106.5 cm/sec Ao mean P.2 mmHg Ao V2 VTI: 32.6 cm Interpretation Summary The estimated ejection fraction is 65 %. Stage 2 diastolic dysfunction. Trivial mitral valve insufficiency. Trivial tricuspid valve insufficiency. Right ventricular systolic pressure estimated to be 41 mmHg. Mild pulmonary hypertension. There is no comparison study available. Ordering Physician: José Miranda Referring Physician: [facility] Performed By: Kriss Weir, JULIAN, RVT 06/01/18 1336 Date Juan Antonio James MD CC: José Miranda; Isai Brown MD; [facility] Date Dictated: 06/01/18 1009 Date Transcribed: 06/01/18 133 Learning And Development Consultant: Signed ABO RH BLOOD TYPE, Collected: 06/01/2018 Status: F Source: [place] PATIENT 8:50 AM [facility] REPOSITORY Order Comment: Number of units to be transfused: 1 When is Plasma to be Transfused? 0840 TYPE CODE TESTS RESULT OUT OF RANGE REFERENCE UNITS LAB B10.0800 A Normal BLOOD POSITIVE TYPE GEL Performed By: #### B10.0010 #### [place] [facility] [address] [place], [address] FFP Collected: 06/01/2018 Status: F Source: [place] 8:50 AM [facility] REPOSITORY TYPE CODE TESTS RESULT OUT OF REFERENCE UNITS RANGE LAB U100.0900 [id number] TRANSFUSED PRODUCT: Fresh Frozen Plasma COUNT: 1 Performed By: #### U100.0900 #### [facility] - refer to report for specific site FFP Collected: 06/01/2018 Status: F Source: [place] 8:50 AM [facility] REPOSITORY TYPE CODE TESTS RESULT OUT OF REFERENCE UNITS RANGE LAB U100.0900 [id number] TRANSFUSED PRODUCT: Fresh Frozen Plasma COUNT: 1 Performed By: #### U100.0900 #### [facility] Laboratory - refer to report for specific site TYPE AND SCREEN Collected: 06/01/2018 Status: F Source: [place] 8:50 AM [facility] REPOSITORY Order Comment: CMV NEG? N Number of units to transfuse: 1 Reason for Ordering Blood: Acute Are the blood/blood products to be transfused? Y Is the patient having/had surgery? N Give When? When Ready Irradiated? N Leukodepleted? Y TYPE CODE TESTS RESULT OUT OF RANGE REFERENCE UNITS LAB B10.0800 A Normal BLOOD TYPE GEL POSITIVE LAB B100.4000 Normal Antibody NEGATIVE Screen Performed By: #### B101.7450 #### [facility] [address] [place], [address] RC Collected: 06/01/2018 Status: F Source: [place] 8:50 AM [facility] REPOSITORY TYPE CODE TESTS RESULT OUT OF REFERENCE UNITS RANGE LAB U100.0000 [id number] TRANSFUSED PRODUCT: T AND S with Crossmatch, Red Cells COUNT: 1 Performed By: #### U100.0000 #### [facility] - refer to report for specific site COMPREHENSIVE METABOLIC Collected: 06/01/2018 Status: F [facility] REPOSITORY TYPE CODE TESTS RESULT OUT OF RANGE REFERENCE UNITS LAB L501.0100 74-106 mg/dL Normal GLU 93 Result Comment: Please note revised GLUCOSE reference range effective 2017. LAB L501.1000 7-18 mg/dL High BUN 47 LAB L501.1100 0.55-1.02 mg/dL High CREAT,SERUM 3.03 Result Comment: The validity of the calculated GFR AND GFRAA in patients over 70 years has not been determined. Clinical correlation is essential. LAB L501.1110 >60 mL/min Low EST GFR 17 Result Comment: Non- GFR Calc LAB L501.1115 >60 mL/min Low EST GFR - AA 20 Result Comment: GFR Calc LAB L501.1255 ml/min Normal Estimated CRCL 14.71 LAB L501.1300 10-20 RATIO Normal BUN/CRE 15.5 LAB L501.1500 6.4-8. g/dL Low 2 T PROT 6.2 LAB L501.1800 3.2-5. g/dL Low 0 ALB 2.9 LAB L501.1950 2.2-4. g/dL Normal 2 GLOB 3.3 LAB L501.2000 0.9-2. RATIO Normal 4 A/G 0.9 LAB L501.2200 8.5-10 mg/dL Low .1 CA 7.5 LAB L501.4100 15-37 U/L High AST 97 LAB L501.4305 45-117 U/L High ALK P 151 LAB L501.4405 13-56 U/L Normal ALT 41 LAB L501.4600 0.20-1 mg/dL High .00 T BILI 2.10 LAB L501.5300 136-14 mmol/L Low 5 NA 134 LAB L501.5600 3.5-5. mmol/L Low 1 K 3.4 LAB L501.5900 98-107 mmol/L Normal CL 107 LAB L501.6100 21.0-3 mmol/L Low 2.0 CO2 15.0 LAB L501.6200 5-15 Normal GAP 12 Performed By: #### L500.4050 #### [facility] [address] [place], [address] CBC W/DIFF, AUTOMATED Collected: 06/01/2018 Status: F Source: [place] 6:15 AM [facility] REPOSITORY TYPE CODE TESTS RESULT OUT OF RANGE REFERENCE UNITS LAB L100.1000 4.4-11.0 K/mm3 Normal WBC 9.9 LAB L100.1200 4.2-5.4 M/mm3 Low RBC 2.64 LAB L100.1300 12.0-15.0 g/dl Low HGB 7.9 LAB L100.1400 37-47 % Low HCT 23.7 LAB L100.1500 81-99 fL Normal MCV 89.8 LAB L100.1600 27.0-32.0 pg Normal MCH 29.9 LAB L100.1700 32-36 g/gl Normal MCHC 33.3 LAB L100.1810 11.6-14.6 % High RDW CV 18.7 LAB L100.1820 35.1-43.9 fl High RDW SD 58.3 LAB L100.1900 150-450 K/mm3 Normal PLT 195 LAB L100.2000 6.2-12.0 fl Normal MPV 9.7 LAB L100.2100 47-70 % High NEUT% 74.6 LAB L100.2200 19-41 % Low LY% 15.8 LAB L100.2300 0-10 % Normal MONO% 8.3 LAB L100.2400 0-5 % Normal EO% 0.9 LAB L100.2500 0-1 % Normal BASO% 0.2 LAB L100.2550 0.0-0.9 % Normal IM GRAN % 0.200 Result Comment: IG% - Immature Granulocytes (promyelocytes, myelocytes and metamyelocytes) > 1% indicates that a LEFT SHIFT is Present. LAB L100.2620 2.0-7.7 X10 3/uL Normal Absolute Neut 7.3 LAB L100.2720 0.83-4.51 X10 3/ul Normal Absolute Lymph 1.56 Performed By: #### L100.0100 #### [facility] [address] [facility] [place], [address] PROTHROMBIN TIME W/INR Collected: 06/01/2018 Status: F Source: [place] 6:15 AM [facility] REPOSITORY TYPE CODE TESTS RESULT OUT OF RANGE REFERENCE UNITS LAB L300.4150 11.7-14.9 SECONDS High PROTIME 21.5 LAB L300.4200 Normal INR 1.9 Performed By: #### L300.3900 #### [facility] [address] [place], [address] FLUID/WASHING Observed: 06/01/2018 Status: F Source: [place] 12:00 AM [facility] REPOSITORY Patient: KEYLA MATTHEWS : 1960 (58/F) Acct Num: [id number] Phys: Kevin BABCOCK,[facility] Unit Num: [id number] Loc: PCU [id number] Specimen: [id number] Received: 06/01/18 - 1522 Spec Type: Fluid TISSUES 1 TISSUES: PARACENTESIS FLUID CYTOLOGY GROSS Received is 50 ml of clear yellow fluid labeled with the patient's name and and designated per the requisition as paracentesis. Submitted for cytology preparation including cell block. / 06/02/18 TC:5 CPT: 19957, 58391 CYTOLOGY STUDY Slides are reviewed. DIAGNOSIS CYTOLOGY Paracentesis fluid for cytology (cytospin and cell block): Negative for malignant cells. AM: 06/03/18 HEADER OPERATION: Ultrasound-guided right paracentesis PRE-OP DIAGNOSIS: Ascites TISSUE SUBMITTED: Paracentesis fluid for cytology Signed Sahil Shannon, DO 06/03/18 <signature on file> Performed By: #### PFLU #### [facility] [place], [address] TROPONIN-I Collected: 05/31/2018 Status: F Source: [place] 9:05 PM [facility] REPOSITORY Order Comment: 'TROP' Serial specimen #1, #2 or #3: 3 TYPE CODE TESTS RESULT OUT OF RANGE REFERENCE UNITS LAB L501.4010 <0.045 ng/mL Normal 0.042 TROPONIN-I Result Comment: TROPONIN-I EXPECTED VALUES <0.045 Negative 0.045 - 0.590 Consistent with Cardiac Damage > OR = 0.600 Critical Value Not every elevated troponin is indicative of [place]. These values should be used with clinical judgement in examining the patient's clinical picture for diagnosis. To establish a diagnosis of [place] versus myocardial injury, there must be a demonstrated rise and/or fall in the troponin values, in addition to ischemic symptoms, EKG changes, new regional wall motion abnormality, and/or angiographical evidence. PLEASE NOTE: REFERENCE RANGES EDITED 17 Performed By: #### L501.4010 #### [facility] [address] [place], [address] HISTORY AND PHYSICAL Observed: 05/31/2018 Status: F Source: [place] EXAM 7:00 PM [facility] REPOSITORY [facility] Medical Records Department [address] [place] [address] History and Physical 05/31/18 1834 MR#: [id number] Acct: [id number] Name: KEYLA MATTHEWS Rep #: [id number] : 1960 58 From: José Miranda MD PCP: STUART [facility] Status: ADM IN Y Location: [place] [address] Problem List (1) Anemia Status: Acute (2) Renal failure Status: Acute (3) Spontaneous bacterial peritonitis Status: Suspected (4) Alcoholic cirrhosis of liver Status: Chronic (5) Tobacco abuse Status: Chronic (6) Stage 1 mild COPD by GOLD classification Status: Chronic (7) Lung mass Status: Chronic History of Present Illness Date of Admission: 05/31/18 Chief Complaint: Abdominal pain. The patient is a 58 year old F with past medical history as mentioned above presented to the emergency room because of abdominal pain. Her symptoms started 4 days ago with abdominal pain, mainly epigastric in location, dull aching pain, 8 out of 10 severity, extends down to both sides of the upper abdomen, associated with nausea and vomiting and without aggravating or relieving factors. She denies fever or chills. One day after she started having abdominal pain, she went for paracentesis and that did not change her pain. Her pain continued to worsen and she decided to come to the ER today. She denied chest pain or shortness of breath. She denied cough or sputum production. In the emergency department, her vital signs were stable, was afebrile. Her routine blood work was remarkable for leukocytosis, hemoglobin of 9.8 g/dL, sodium of 132, BUN 50 and creatinine 3.41. LFT revealed total bilirubin of 3.1, AST of 120, alkaline phosphatase of 184 and ALT which was normal. EKG revealed sinus tachycardia, heart rate has been around 100, no acute ischemic changes. Troponin is 0.048. Lipase was normal. CT scan abdomen and pelvis without contrast revealed cirrhosis with ascites, bowel wall thickening consistent with enteritis and possibly colitis. She is being admitted for suspected spontaneous bacterial proctitis as well as possible enteritis and colitis. Also, she was found to have anemia as well as renal failure which are not clear if they are acute or chronic. Past Medical History Past Medical History (Chronic Problems): Chronic Problems (Last Reviewed 05/04/18 @ 13:46 by YEMI Caldwell) Alcoholic cirrhosis of liver (Chronic) Tobacco abuse (Chronic) Stage 1 mild COPD by GOLD classification (Chronic) Lung mass (Chronic) Medical History: Medical History (Last Reviewed 05/04/18 @ 13:46 by YEMI Caldwell) Alcoholic cirrhosis of liver with ascites K70.31 Chronic obstructive pulmonary disease J44.9 Cirrhosis K74.60 Hypothyroidism E03.9 Nicotine dependence, uncomplicated F17.200 Nutritional anemia D53.9 Allergies No Known Allergies Allergy (Verified 05/31/18 14:33) Home Medications: Ambulatory Orders Medication Instructions Recorded cholecalciferol (vitamin D3) 50,000 unit PO QWEEK 02/28/18 50,000 unit capsule hydroxyzine HCl 10 mg tablet 10 mg PO Q8 PRN 02/28/18 pantoprazole 40 mg tablet,delayed 40 mg PO DAILY 02/28/18 Surgical History: Surgical History (Last Reviewed 05/04/18 @ 13:46 by YEMI Caldwell) H/O dilation and curettage Z98.890 18 yo miscarriage Surgical History: noncontributory Psychiatric History: No pertinent psych hx 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 Lives: With Family Smoking Status: Current every day smoker Tobacco Use: Cigarettes Alcohol: None Drugs: None - *Family History Maternal Family History: Family History (Last Reviewed 05/04/18 @ 13:46 by YEMI Caldwell) Father Myocardial infarction Mother Heart disease Kidney disease Liver disease Brother Brain cancer History Items: No pertinent history Paternal Family History: Family History (Last Reviewed 05/04/18 @ 13:46 by YEMI Caldwell) Father Myocardial infarction Mother Heart disease Kidney disease Liver disease Brother Brain cancer History Items: No pertinent history Review of Systems Constitutional: Reports: Anorexia. Denies: Chills, Fever, Weakness Eyes: Denies: Blurred vision, Double vision, Drainage, Redness HEENT: Denies: Difficulty Hearing, Ear Pain, Eye Pain, Nasal Congestion, Sore Throat Cardiovascular: Denies: Chest Pain, Chest Pressure, Chest Tightness, Edema, Heaviness, Palpitations, Syncope Respiratory: Denies: Cough, Hemoptysis, Pleuritic Pain, Shortness of Breath, Sputum production, Wheezing Gastrointestinal: Reports: Abdominal Pain, Nausea, Vomiting. Denies: Constipation, Diarrhea Genitourinary: Denies: Dysuria, Frequency, Hematuria Musculoskeletal: Denies: Arm Pain, Back Pain, Foot Pain Skin: Denies: Dryness, Rash Neurological: Denies: Balance problems, Double vision, Change in Speech, Slurred speech, Confusion, Headaches, Incoordination, Numbness Psychiatric: Denies: Anxiety, Depression Endocrine: Denies: Change in Body Habitus, Polydipsia VTE Information - Inpt Only VTE Present on Admission: No VTE Mechan Device Prophylaxis: None VTE Pharm Prophylaxis ordered?: Yes Patient Problems: Active and Suspected Problems (Last Reviewed 05/04/18 @ 13:46 by Tasia Jenkins, LAURA-C) Anemia (Acute) Renal failure (Acute) Spontaneous bacterial peritonitis (Suspected) - Physical Exam General: Alert, Oriented x3, Cooperative, No apparent distress HEENT: Atraumatic, PERRLA, EOMI, Normocephalic Oral: Moist Mucosa Neck: Supple, No JVD, Negative Carotid Bruits, Trachea Midline, Thyroid Normal Size and Texture Lungs: Clear to auscultation, No rhonchi, No wheeze, No rales, Diminished Cardiovascular: Regular rate, Regular Rhythm, Normal S1, Normal S2, PMI Normal Abdomen: Bowel Sounds Present, Soft, No Hepato-splenomegaly, Distended, Tender - Minimal tenderness. No guarding or rigidity., - - Ascites. Extremities: No clubbing, No cyanosis, No edema Skin: No rashes, No breakdown Lymphatic: No Cervical, Supraclavicular, or Inguinal Adenopathy Neurological: Cranial nerves II-XII grossly intact, Motor Exam 5/5 strength throughout Psych/Mental Status: Normal Affect, Appropriate, Alert and oriented to time, place, person, mood and affect Vital Signs Temp Pulse Resp BP Pulse Ox 97.8 F 73 19 H 111/27 L 97 05/31/18 15:46 05/31/18 18:03 05/31/18 18:03 05/31/18 18:03 05/31/18 18:03 Oxygen Delivery Method Room Air Weight: 107 lb 5.842 oz Body Mass Index (BMI) 20.9 Microbiology Past 72 Hours 05/31/18 15:20 Stool Occult Blood (VERONIKA) - Final Stool Occult Blood Positive Laboratory Tests Past 24 Hrs WBC 17.2 H RBC 3.29 L Hgb 9.8 L Hct 29.5 L MCV 89.7 MCH 29.8 MCHC 33.2 RDW 18.6 H WBC RBC Hgb Hct MCV MCH MCHC RDW RDW Differential Plt Count Clinical Impression(s) from Imaging Studies Abdomen/Pelvis CT 05/31/18 14:51 IMPRESSION: Cirrhosis and ascites. Distended gallbladder without stones. Cannot exclude hydrops. Bowel wall thickening consistent with antritis and possibly colitis. Fibroid uterus. Demineralization and numerous compression fractures. Electronically Signed: Eduar Gill MD at 17:33 EST , Service support , Assessment/Plan All Active Problems (Last Reviewed 05/04/18 @ 13:46 by Tasia Jenkins, LAURA-Neva) Anemia (Acute) Renal failure (Acute) This is a 58 years old female patient presented to the ED because of abdominal pain in context of history of alcoholic liver cirrhosis, underwent diagnostic paracentesis in the ER and started on IV antibiotics for suspected spontaneous bacterial peritonitis and a CT scan abdomen and pelvis revealed cirrhosis with ascites and findings consistent with enteritis and possible colitis. #1 suspected spontaneous bacterial peritonitis: Patient had paracentesis when the after he has been started. Also, she had diagnostic paracentesis in the ED today by the ER physician, ascitic fluid analysis pending. She does have leukocytosis, she is afebrile, blood pressure noted are stable. CT scan abdomen and pelvis reviewed as above. Plan: Admit to PCU, cardiac monitoring, start IV Rocephin and IV Flagyl, follow ascitic fluid analysis, repeat CBC and CMP tomorrow morning, PT OT evaluation and treatment. #2 possible enteritis/colitis: CT scan reviewed as above. Patient denied any diarrhea or fever. Plan: IV Rocephin and Flagyl as above, IV fluids, IV morphine as needed for pain, Zofran as needed. #3 indeterminate troponin: Without chest pain. EKG revealed normal sinus rhythm without evidence of acute ischemic changes. Plan: Serial cardiac enzymes, repeat EKG in the morning, 2D echocardiogram. #4 normocytic anemia: Unknown if this is acute or chronic. No previous blood work available in her chart. Plan: Obtain medical records from PCPs office, repeat CBC tomorrow morning, iron studies, stool for occult blood. #5 renal failure: Again, baseline creatinine is unknown and it is unclear if this is acute or chronic. Admission creatinine is 3.41. Plan: IV fluids, and Protopic chart, repeat BMP tomorrow morning, obtain records from PCPs office. #6 alcoholic liver cirrhosis: She is not on maintenance treatment. Will check ammonia level and she has been having bowel movements every day. No evidence of evidence of adenopathy. #7 COPD: DuoNeb every 6 hours, albuterol as needed, incentive spirometer. #8 lung mass: According to the patient, she is supposed to go for lung biopsy but repeat CT scan chest revealed smaller lung mass and was recommended for follow-up with CT scan chest later. #9 DVT prophylaxis: Subcu heparin. This note was generated with [email or web address] dictation software. It may contain incorrect words, spelling, and punctuation that were not noted in checking the note before signing. Code Visit Inpatient E AND M: 44708 Init Hosp L3 05/31/18 1900 <Electronically signed by José Miranda MD> Date José Miranda MD Cosigner Signature: Date (if applicable) CC: José Miranda; [facility] Signed AMMONIA Collected: 05/31/2018 Status: F Source: [place] 6:44 PM [facility] REPOSITORY TYPE CODE TESTS RESULT OUT OF REFERENCE UNITS RANGE LAB L503.5510 11-32 umol/L High AMMONIA 36.0 Performed By: #### L503.5510 #### [facility] [address] [place], [address] PARACENTESIS WITH US Observed: 05/31/2018 Status: F Source: [place] 6:22 PM [facility] REPOSITORY [facility] Imaging Services [address] [place] [address] Paracentesis with US MR#: [id number] Acct: [id number] Name: KEYLA MATTHEWS Rep #: [id number] : 1960 F 58 From: Hernandez Eli MD PCP: [facility] Status: ADM IN Study: Paracentesis with US Date of Exam: 06/01/18 Exam# [id number] Ordering Dr: José Miranda MD PROCEDURE: Ultrasound guided paracentesis. DATE OF EXAMINATION: June 01, 2018. INDICATION: Female, 58 years old. Ascites. PHYSICIAN: Hernandez Eli M.D. TECHNIQUE: The risks, benefits, and alternatives to the procedure were explained to the patient. The specific risks of bleeding, infection, and damage to bowel were detailed and accepted. Witnessed informed consent was obtained. The abdomen was ultrasonographically surveyed. An appropriate pocket of fluid was identified at the right lower quadrant. The skin were cleaned and prepped in the usual sterile fashion. Using ultrasound guidance, the peritoneal cavity was accessed with a 5-Comoran paracentesis needle/catheter system. The trocar was removed. A total of 2810 ml of brad-colored fluid were removed from the peritoneal cavity. A 110 mL sample was sent to the laboratory. The catheter was removed and a sterile dressing was applied. The procedure was well tolerated. US/Paracentesis with US IMPRESSION: Ultrasound guided paracentesis. Electronically Signed: Hernandez Eli MD at 15:36 EST Tel [phone], Service support , CC: José Miranda; [facility] Learning And Development Consultant: Signed BODY FLUID CELL Collected: 05/31/2018 Status: C Source: [place] COUNT+DIFF 4:50 PM [facility] REPOSITORY Order Comment: Order Date: 05/31/18 Has pt arrived? Y Order Date: 05/31/18 Has pt arrived? Y The reference range and other method performance specifications have not been established for this body fluid. The test must be integrated into the clinical context for interpretation. TYPE CODE TESTS RESULT OUT OF RANGE REFERENCE UNITS LAB L200.3380 0.000-0.000 10 3/ul High BFTC# 0.237 Result Comment: This is the Total Number of Nucleated Cell Types in the Body Fluid. LAB L200.3400 /mm3 Normal 61 RBC/BF LAB L200.3500 10 3/uL Normal 0.195 WBC/BF LAB L200.3510 % Normal 24.1 BF PMN WBC% LAB L200.3515 % Normal 75.9 BF MN WBC% LAB L200.3520 10 3/uL Normal 0.148 BF MN WBC# LAB L200.3525 10 3/uL Normal 0.047 BF PMN WBC# LAB L200.4400 Normal PATH COMM/BF Reviewed Result Comment: Negative for malignant cells. Sergo Conner M.D. 06/01/18 AMENDED REPORT 06/01/18 1135 PATH COMM/BF previously reported as: May follow LAB L200.3100 Normal SOURCE/BF ASCITES FLUID LAB L200.3200 Normal COLOR/BF YELLOW LAB L200.3300 Normal APPEAR/BF CLEAR LAB L200.4420 Normal BFM 2ND SPEC SEE COMMENT LAB L200.3600 % Normal PMN 10 LAB L200.3700 % Normal LYMPH 20 LAB L200.3800 % Normal MONO/BF 70 Performed By: #### L200.0200, L200.3350 #### [facility] [address] [place], [address] SPECIFIC GRAVITY, Collected: 05/31/2018 Status: F Source: [place] BODY FLUID 4:50 PM [facility] REPOSITORY Order Comment: Order Date: 05/31/18 Has pt arrived? Y Order Date: 05/31/18 Has pt arrived? Y The reference range and other method performance specifications have not been established for this body fluid. The test must be integrated into the clinical context for interpretation. TYPE CODE TESTS RESULT OUT OF RANGE REFERENCE UNITS LAB L200.3350 Normal 1.015 SP.GR.BODY FLD Performed By: #### L200.0200, L200.3350 #### [facility] [address] [place], [address] GLUCOSE, BODY FLUID Collected: 05/31/2018 Status: F Source: [place] 4:50 PM [facility] REPOSITORY TYPE CODE TESTS RESULT OUT OF RANGE REFERENCE UNITS LAB L503.0100 40-70 mg/dL High GLU,BF 109 Performed By: #### L503.0100, L503.0300, L504.0250 #### [facility] [address] [place], [address] PROTEIN, BODY FLUID Collected: 05/31/2018 Status: F Source: [place] 4:50 PM [facility] REPOSITORY TYPE CODE TESTS RESULT OUT OF RANGE REFERENCE UNITS LAB L503.0300 Not Establ. g/dL Normal 1.7 PROTEIN,BF Performed By: #### L503.0100, L503.0300, L504.0250 #### [facility] [address] [place], [address] LDH,BODY FLUID Collected: 05/31/2018 Status: F Source: [place] 4:50 PM [facility] REPOSITORY TYPE CODE TESTS RESULT OUT OF RANGE REFERENCE UNITS LAB L504.0250 Not Establ. Units/l Normal LDH,BF 69 Performed By: #### L503.0100, L503.0300, L504.0250 #### [facility] [address] [place], [address] Observed: 05/31/2018 Status: F Source: [place] CULTURE, BODY FLUID 4:50 PM [facility] REPOSITORY Order Date: 05/31/18 Has pt arrived? Y Gram Stain Centrifuged Specimen? Culture performed on centrifuged specimen Gram Stain 3+ Red Cell Stroma 2+ Red Blood Cells Rare White Blood Cells No organisms seen Body Fluid Cult Culture exhibits no growth. Cult, Anaerobic No growth in 5 days. Performed By: #### M100.1300 #### [facility] [address] [place], [address] CYTOLOGY, BODY FLUID / Collected: 05/31/2018 Status: F Source: [place] CSF 4:50 PM [facility] REPOSITORY Order Comment: Order Date: 05/31/18 Has pt arrived? Y TYPE CODE TESTS RESULT OUT OF RANGE REFERENCE UNITS LAB L350.1000 SEE Normal PATHOLOGY CYTOLOGY,BF REPORT /CSF Result Comment: Specimen submitted to Anatomical Pathology Department for testing. Performed By: #### L350.1000 #### [place] [facility] [address] [place], [address] AMYLASE BODY FLUID Collected: 05/31/2018 Status: F Source: [place] 4:50 PM [facility] REPOSITORY Order Comment: Specimen Source: FLUID TYPE CODE TESTS RESULT OUT OF RANGE REFERENCE UNITS LAB L3800.0050 . U/L Normal LORRI,BF 22 [id number] Result Comment: : Peritoneal : Pleural : Synovial : : : : : : : Transudate : Exudate : : : : : : : : 88-109 U/L : Not Estab. : Not Estab.: Not Estab. : : : : : : The method performance specifications have not been established for this test in body fluid. The test result should be integrated into the clinical context for interpretation. The method performance specifications have not been established for this test in body fluid. The test result should be integrated into the clinical context for interpretation. Performed at: - [facility] [address] [id number] Adjudication Specialist: Mk Donovan PhD, Phone: [phone] Performed By: #### L3800.0050 #### [facility] (refer to report for specific site) refer to report for address and phone number FLUID/WASHING Observed: 05/31/2018 Status: F Source: [place] 4:45 PM [facility] REPOSITORY Patient: KEYLA MATTHEWS : 1960 (58/F) Acct Num: [id number] Phys: Kevin BABCOCK,[facility] Unit Num: [id number] Loc: [facility] [id number] Specimen: [id number] Received: 06/01/18 - 1213 Spec Type: Fluid TISSUES 1 TISSUES: PARACENTESIS FLUID CYTOLOGY GROSS Received is 2 ml of clear yellow fluid labeled with the patient's name and and designated per the requisition as paracentesis. Submitted for cytology preparation including cell block. / 06/01/18 TC:5 CPT: 92170, 88221 CYTOLOGY STUDY Slides are reviewed. DIAGNOSIS CYTOLOGY Paracentesis fluid for cytology (cytospin and cell block): Negative for malignant cells. AM:amauri 06/02/18 HEADER OPERATION: Paracentesis PRE-OP DIAGNOSIS: Ascites TISSUE SUBMITTED: Paracentesis fluid for cytology Signed Sahil Shannon DO 06/02/18 <signature on file> Performed By: #### PFLU #### [place] [facility] [address] [place], [address] CBC W/DIFF, AUTOMATED Collected: 05/31/2018 Status: F Source: [place] 3:20 PM [facility] REPOSITORY TYPE CODE TESTS RESULT OUT OF RANGE REFERENCE UNITS LAB L100.1000 4.4-11.0 K/mm3 High WBC 17.2 LAB L100.1200 4.2-5.4 M/mm3 Low RBC 3.29 LAB L100.1300 12.0-15.0 g/dl Low HGB 9.8 LAB L100.1400 37-47 % Low HCT 29.5 LAB L100.1500 81-99 fL Normal MCV 89.7 LAB L100.1600 27.0-32.0 pg Normal MCH 29.8 LAB L100.1700 32-36 g/gl Normal MCHC 33.2 LAB L100.1810 11.6-14.6 % High RDW CV 18.6 LAB L100.1820 35.1-43.9 fl High RDW SD 60.9 LAB L100.1900 150-450 K/mm3 Normal PLT 256 LAB L100.2000 6.2-12.0 fl Normal MPV 10.1 LAB L100.2100 47-70 % High NEUT% 81.2 LAB L100.2200 19-41 % Low LY% 10.8 LAB L100.2300 0-10 % Normal MONO% 7.3 LAB L100.2400 0-5 % Normal EO% 0.3 LAB L100.2500 0-1 % Normal BASO% 0.1 LAB L100.2550 0.0-0.9 % Normal IM GRAN % 0.300 Result Comment: IG% - Immature Granulocytes (promyelocytes, myelocytes and metamyelocytes) > 1% indicates that a LEFT SHIFT is Present. LAB L100.2620 2.0-7.7 X10 3/uL High Absolute Neut 14.0 LAB L100.2720 0.83-4.51 X10 3/ul Normal Absolute Lymph 1.85 Performed By: #### L100.0100 #### [facility] [address] [place], [place], [id number] COMPREHENSIVE METABOLIC Collected: 05/31/2018 Status: F Source: [place] 3:20 PM [facility] REPOSITORY TYPE CODE TESTS RESULT OUT OF RANGE REFERENCE UNITS LAB L501.0100 74-106 mg/dL High GLU 117 Result Comment: Fasting Glucose result from 100 to 125 mg/dL suggests IMPAIRED HOMEOSTASIS per A.D.A. criteria. Please note revised GLUCOSE reference range effective 2017. LAB L501.1000 7-18 mg/dL High BUN 50 LAB L501.1100 0.55-1.02 mg/dL High CREAT,SERUM 3.41 Result Comment: The validity of the calculated GFR AND GFRAA in patients over 70 years has not been determined. Clinical correlation is essential. LAB L501.1110 >60 mL/min Low EST GFR 15 Result Comment: Non- GFR Calc LAB L501.1115 >60 mL/min Low EST GFR - AA 18 Result Comment: GFR Calc LAB L501.1255 ml/min Normal Estimated CRCL 13.03 LAB L501.1300 10-20 RATIO Normal BUN/CRE 14.7 LAB L501.1500 6.4-8. g/dL Normal 2 T PROT 7.0 LAB L501.1800 3.2-5. g/dL Low 0 ALB 2.9 LAB L501.1950 2.2-4. g/dL Normal 2 GLOB 4.1 LAB L501.2000 0.9-2. RATIO Low 4 A/G 0.7 LAB L501.2200 8.5-10 mg/dL Low .1 CA 8.0 LAB L501.4100 15-37 U/L High AST 120 LAB L501.4305 45-117 U/L High ALK P 184 LAB L501.4405 13-56 U/L Normal ALT 50 LAB L501.4600 0.20-1 mg/dL High .00 T BILI 3.10 LAB L501.5300 136-14 mmol/L Low 5 NA 132 LAB L501.5600 3.5-5. mmol/L Normal 1 K 4.0 LAB L501.5900 98-107 mmol/L Normal CL 102 LAB L501.6100 21.0-3 mmol/L Low 2.0 CO2 18.0 LAB L501.6200 5-15 Normal GAP 12 Performed By: #### L500.4050, L501.2450, L501.4010 #### [facility] [address] [place], [address] LIPASE Collected: 05/31/2018 Status: F Source: [place] 3:20 PM [facility] REPOSITORY TYPE CODE TESTS RESULT OUT OF RANGE REFERENCE UNITS LAB L501.2450 73-393 U/L Normal LIPASE 257 Performed By: #### L500.4050, L501.2450, L501.4010 #### [facility] [address] [place], [address] TROPONIN-I Collected: 05/31/2018 Status: F Source: [place] 3:20 PM [facility] REPOSITORY TYPE CODE TESTS RESULT OUT OF RANGE REFERENCE UNITS LAB L501.4010 <0.045 ng/mL High 0.048 TROPONIN-I Result Comment: TROPONIN-I EXPECTED VALUES <0.045 Negative 0.045 - 0.590 Consistent with Cardiac Damage > OR = 0.600 Critical Value Not every elevated troponin is indicative of [place]. These values should be used with clinical judgement in examining the patient's clinical picture for diagnosis. To establish a diagnosis of [place] versus myocardial injury, there must be a demonstrated rise and/or fall in the troponin values, in addition to ischemic symptoms, EKG changes, new regional wall motion abnormality, and/or angiographical evidence. PLEASE NOTE: REFERENCE RANGES EDITED 17 Performed By: #### L500.4050, L501.2450, L501.4010 #### [facility] [address] [place], [address] PROTHROMBIN TIME W/INR Collected: 05/31/2018 Status: F Source: [place] 3:20 PM [facility] REPOSITORY TYPE CODE TESTS RESULT OUT OF RANGE REFERENCE UNITS LAB L300.4150 11.7-14.9 SECONDS High PROTIME 20.8 LAB L300.4200 Normal INR 1.8 Performed By: #### L300.3900, L300.4310 #### [facility] [address] [place], [address] PARTIAL THROMBOPLAST Collected: 05/31/2018 Status: F Source: [place] TIME 3:20 PM [facility] REPOSITORY TYPE CODE TESTS RESULT OUT OF RANGE REFERENCE UNITS LAB L300.4310 24.1-36.2 Seconds Normal PTT 35.0 Performed By: #### L300.3900, L300.4310 #### [facility] [address] [place], [address] Observed: 05/31/2018 Status: F Source: [place] STOOL OCCULT BLOOD 3:20 PM [facility]OB REPOSITORY Order Date: 05/31/18 Has pt arrived? Y STOB iFOB Occult Blood Positive ORGANISM 1: OCCULT BLOOD POSITIVE Performed By: #### M100.7900 #### [facility] [address] [place], [address] ABDOMEN/PELVIS WITHOUT Observed: 05/31/2018 Status: F Source: [place] CONT 2:53 PM [facility] REPOSITORY [facility] Imaging Services [address] [place] [address] Abdomen/Pelvis without Cont MR#: [id number] Acct: [id number] Name: KEYLA MATTHEWS Rep #: [id number] : 1960 F 58 From: Eduar Gill MD PCP: [facility] Status: REG ER Study: Abdomen/Pelvis without Cont Date of Exam: 05/31/18 Exam# [id number] Ordering Dr: Evelyn Fuentes MD STUDY: CT ABDOMEN AND PELVIS WITHOUT CONTRAST REASON FOR EXAM: Female, 58 years old. Upper abdominal pain. Cirrhosis. RADIATION DOSAGE (If Supplied By Facility): CTDIvol = ( 7.89 ) mGy, DLP = ( 360.52 ) mGycm TECHNIQUE: Transaxial images were obtained from the dome of the diaphragm to the symphysis pubis with oral contrast, and without intravenous contrast. Sagittal and coronal images were reconstructed. Individualized dose optimization techniques were used for this CT. COMPARISON: None. FINDINGS: Streaky subsegmental atelectasis seen in both lower lobes. The visualized portions of the heart are within normal limits. There is a diffuse contour abnormality of the liver consistent with cirrhotic changes. Gallbladder is distended with no definite stones or wall thickening. Normal spleen. Normal pancreas. Normal bilateral adrenal glands. Normal right kidney. Normal left kidney. Grossly normal appearance of the stomach. Numerous mildly distended loops of small bowel with thickened marshall suggestive of enteritis. No gross evidence for obstruction. Large bowel is normal caliber. It also may have wall thickening. Grossly normal appendix. There is diffuse atherosclerotic calcification of the abdominal aorta, without a demonstrated aneurysm. Normal inferior vena cava. Normal retroperitoneum. Moderate to marked ascites in all quadrants. Increased density of the abdominal, pelvic, and mesenteric fat most consistent with edema. Normal urinary bladder. Normal size and lobulated uterus with a few calcifications, consistent with fibroids. Normal abdominal wall. Skeletal structures show diffuse mineralization. Numerous compression fractures of indeterminate age. Prominent multilevel degenerative changes particularly of the facet joints. CT/Abdomen/Pelvis without Cont IMPRESSION: Cirrhosis and ascites. Distended gallbladder without stones. Cannot exclude hydrops. Bowel wall thickening consistent with antritis and possibly colitis. Fibroid uterus. Demineralization and numerous compression fractures. Electronically Signed: Eduar Gill MD at 17:33 EST , Service support , CC: Evelyn Fuentes MD; [facility] Learning And Development Consultant: Signed US DRAINAGE PERITONEAL Observed: 05/27/2018 Status: F Source: Contractually 10:00 AM [facility] REPOSITORY ORIGINAL ULTRASOUND GUIDED PARACENTESIS: Therapeutic CLINICAL STATEMENT: Ascites DRAINAGE/PUNCTURE SITE: RIGHT upper abdomen QUANTITY OF FLUID REMOVED: 5500 mL CHARACTERISTICS OF FLUID: Yellow serous DISPOSITION OF FLUID: Discarded The paracentesis was performed in the usual fashion. The procedure was successful with minimal patient discomfort. No post-procedural complications were identified. IMPRESSION: Successful ultrasound-guided paracentesis. The procedure was performed by Catalina Soto, Physician [employer] Cash[employer]. I concur with the contents of the report. Interpreted By: April Craft MD Preliminary Report By: Catalina Soto Electronically Signed By: April Craft MD Dictated Date: 05/27/2018 4:07:22 PM Prelim Date: 05/27/2018 4:07:33 PM Sign Date: 05/27/2018 4:29:42 PM US DRAINAGE PERITONEAL Observed: 05/20/2018 Status: F Source: Contractually 9:00 AM [facility] REPOSITORY ORIGINAL ULTRASOUND GUIDED PARACENTESIS: Therapeutic CLINICAL STATEMENT: Ascites DRAINAGE/PUNCTURE SITE: RIGHT upper abdomen QUANTITY OF FLUID REMOVED: 5600 mL CHARACTERISTICS OF FLUID: Yellow serous DISPOSITION OF FLUID: Discarded The paracentesis was performed in the usual fashion. The procedure was successful with minimal patient discomfort. No post-procedural complications were identified. IMPRESSION: Successful ultrasound-guided paracentesis. The procedure was performed by Catalina Soto, Physician [employer] Cashier. I concur with the contents of the report. Interpreted By: Tray Storm MD Preliminary Report By: Catalina Soto Electronically Signed By: Tray Storm MD Dictated Date: 05/20/2018 11:22:04 AM Prelim Date: 05/20/2018 11:22:15 AM Sign Date: 05/20/2018 11:37:39 AM US DRAINAGE PERITONEAL Observed: 05/11/2018 Status: F Source: [facility] 11:00 AM [facility] ORIGINAL ULTRASOUND GUIDED PARACENTESIS CLINICAL STATEMENT: Patient has a history of alcoholic cirrhosis with ascites SITE: RUQ FLUID REMOVED: 4150 cc FLUID COLOR: Yellow serous DISPOSITION OF FLUID: Discarded CATHETER/NEEDLE: 5 Fr once step catheter needle The procedure, risks, limitations, and alternatives were discussed. All questions were answered. Written informed consent was obtained. Accompanying paperwork was verified for accuracy. Directed history and physical exam performed prior to the procedure. Medication reconciliation was performed by nursing personnel. Procedure was performed using a cap, sterile gloves, a large sterile sheet, hand hygiene and hospital-approved cutaneous antisepsis. Ultrasound survey demonstrates ascites. 2% lidocaine was administered at the puncture site for local anesthesia. The centesis catheter needle was advanced into the fluid. After removal of the needle, the catheter was attached to vacuum bottles and removed once no additional fluid could be removed. COMPLICATIONS: None EBL: None PATIENT CONDITION: unchanged IMPRESSION: 1. Successful ultrasound guided paracentesis. Procedure was performed by Ashley Patel PA-C. Interpreted By: Davidson Mujica MD Preliminary Report By: Ashley Patel PA-C Electronically Signed By: Davidson Mujica MD Dictated Date: 05/11/2018 4:20:35 PM Prelim Date: 05/11/2018 4:20:56 PM Sign Date: 05/11/2018 4:32:30 PM PULMONARY VISIT REPORT Observed: 05/04/2018 Status: F Source: [place] 1:51 PM [facility] REPOSITORY [facility] [address] [place] [address] OFFICE VISIT Date of Service: 05/04/18 MR#: [id number] Acct: [id number] Name: KEYLA MATTHEWS Rep #: [id number] : 1960 Provider: Tasia Jenkins Age/Sex: 58/F Location: [facility] Status: Signed Assessment AND Plan 1. Stage 1 mild COPD by GOLD classification J44.9 Plan Does not appear to be an exacerbation of COPD today. No need for prednisone or antibiotic. Continue current maintenance medication. No additional testing at this time. Contact the office for any new or worsening symptoms. An acute visit and typically be arranged within 1-2 days. Follow-up in 6 mos. 2. Lung mass R91.[address] showed almost complete resolution. May require interval follow up imaging. 3. Tobacco abuse Z72.0 Plan Continue to encourage smoking cessation. Plan Detail Follow Up 6 Months (DMB) HPI 3 wk. f/u: Chief Complaint: None HPI Comments Details: This patient presents to the office today to follow- up on her mild COPD, lung nodule and tobacco abuse. She is ambulatory and currently on room air. She has not been seen in the ED or urgent care for respiratory illnesses since her last office visit. She has not required any antibiotics or prednisone for any breathing problems. She continues compliance with steel toe daily. She states that the medication has helped reduce her shortness of breath. She has no complaints of shortness of breath today. She denies any cough, sputum production or hemoptysis. She denies any wheezing, chest tightness, chest pain or palpitations. She denies any fever, chills or body aches. See complete review of systems. CT of the chest completed on April 27, 2018 documented that the nodular density seen in the right lower lobe was almost completely resolved. Attempted a CT-guided biopsy, however given that the nodule was reduced in size the procedure was aborted. The patient did receive fresh frozen plasma to reduce the risk of bleeding prior to the procedure. She did not experience any side effects from the FFP. Intake Vital Signs05/04/18 Height 5 ft 05/04/18 Weight: 107 lb Intake Visit Reasons: 3 wk. f/u Allergies No Known Allergies Allergy (Unverified 05/04/18 06:16) Medications albuterol sulfate HFA 90 mcg/actuation aerosol inhaler 2 puff INHALATION Q6H PRN 02/28/18 [History Confirmed 05/04/18] cholecalciferol (vitamin D3) 50,000 unit capsule 50,000 unit PO QWEEK 02/28/18 [History Confirmed 05/04/18] cholestyramine (with sugar) 4 gram oral powder 4 g PO BID g 02/28/18 [History Confirmed 05/04/18] hydroxyzine HCl 10 mg tablet 10 mg PO Q8 PRN 02/28/18 [History Confirmed 05/04/18] lactulose 20 gram/30 mL oral solution 20 g PO DAILY ml 02/28/18 [History Confirmed 05/04/18] levothyroxine 25 mcg tablet 25 mcg PO DAILY 02/28/18 [History Confirmed 05/04/18] nicotine 21 mg/24 hr daily transdermal patch 1 patch TRANSDERMAL DAILY 02/28/18 [History Confirmed 05/04/18] pantoprazole 40 mg tablet,delayed release 40 mg PO DAILY 02/28/18 [History Confirmed 05/04/18] tiotropium 2.5 mcg-olodaterol 2.5 mcg/actuation mist for inhalation 2 puff INHALATION Q24H #4 g 04/19/18 [Rx Confirmed 05/04/18] PFSH Medical History Alcoholic cirrhosis of liver with ascites (Chronic) Chronic obstructive pulmonary disease (Chronic) Cirrhosis (Chronic) Hypothyroidism (Chronic) Nicotine dependence, uncomplicated (Chronic) Nutritional anemia (Chronic) Surgical History H/O dilation and curettage (Resolved) Family History Father Myocardial infarction Mother Heart disease Kidney disease Liver disease Brother Brain cancer Social History current occupational status: retired pets and animals: No Smoking Status: Current every day smoker alcohol intake: former year quit: 2018 substance use type: marijuana Review of Systems Const CONSTITUTIONAL: Negative anorexia, body ache, chills, daytime sleepiness, fever(s), night sweats, oral thrush, stops breathing during sleep, weight loss, sleeping in chair, fatigue, weight loss, weight gain, frequent colds, seasonal allergies, other, headache(s) or orthopnea EETM Ear Nose Throat Mouth: Positive hearing normal; negative hard of hearing, hoarseness, dry mouth in morning, change in vision, itchy eyes, eye pain, swallowing Difficulty, ear pain, nose bleed, headache(s), mouth pain, nasal congestion, nasal discharge, post nasal drip, sinus pain, sinus pressure, sore throat or other Cardio Cardiovascular: Negative chest pain, chest pain at rest, chest pain with activity, irregular heart rhythm, edema, shortness of breath when lying down, palpitations, murmur or other Resp Respiratory: Positive as per HPI and cough cough: Positive productive color: Positive white; negative shortness of breath, pain with cough, wheezing, chest congestion, chest tightness, pain on inspiration, inhalers, increase use of rescue inhalers, snoring, apnea or other Gastro Gastrointestional: Negative bloody stools, change in appetite, difficulty swallowing, reflux, hematemesis, melena stool, loose stool, constipation or other Genitourinary: Negative blood in urine, nocturia, pain with urination or other Musc Musculoskeletal: Negative body pain, back pain, neck pain or other Skin/Breast Skin/Breast: Negative dry skin, itching, rash, unusual bruising, breast lump or other Neuro Neurological: Negative restless legs, confusion, weakness or other Psych Psychocological: Negative abnormal sleep pattern, anxiety, thoughts of hurting self/others, hopelessness or other Lymph Lymphatic: Negative easy bleeding, easy bruising, swollen lymph nodes or other Exam Const Constitutional: Positive conversant, cooperative, in no acute respiratory distress, healthy appearing, well developed, well nourished and good hygiene Head Head: Positive normocephalic and atraumatic; negative cyanosis of lips/distal nose Eyes Eye: Positive clear conjunctiva; negative nystagmus or scleral abnormality Ears Ear: Positive hearing normal and external ears normal; negative hard of hearing Nose Nose: Positive external nose normal and no nasal discharge; negative epistaxis Mouth Mouth: Positive oral mucosae normal, no lesions, dentures and posterior oropharynx is adequate; negative post nasal drip, malodorous breath or oral thrush present Mallampati Score: I: Mallampati Score Neck Neck: Positive normal visual inspection, full ROM and trachea midline; negative lymphadenopathy, JVD or tender Chest Wall Chest: Positive normal inspection of the chest and symmetric chest movement; negative increased A/P diameter Resp lung sounds: Positive clear to auscultation, good air exchange, normal expiratory time and normal respiratory effort; negative diminished, wheezes, rhonchi, rales, dullness to percussion or wheeze present on forced exhalation Cardio Cardiac: Positive regular rate, regular rhythm, S1 normal and S2 normal; negative murmur Genitourinary: Positive deferred Musc Musculoskeletal: Positive steady gait and ROM normal; negative kyphosis or scoliosis Skin Pulmonary Skin Exam: Positive intact; negative rash Pulses Pulse: Yes pulses normal x4 extremities Extremities Extremities: Yes capillary refill normal, No cyanosis, No edema Neuro Neurologic: Yes conversant, Yes normal concentration, Yes no focal neuro deficits, Yes understands questions, Yes cooperative, Yes normal cognition, Yes normal coordination, No tremor Lymph Lymphatic: No lymphadenopathy, No tenderness, No cervical adenopathy Psych Appearance: Positive grossly normal, eye contact and well kempt Mental Status: Positive mental status grossly normal Mood: Positive congruent mood Affect: Positive normal affect Coding Level of Care Code Off vis,est,level 3 Diagnoses Stage 1 mild COPD by GOLD classification J44.9 Lung mass R91.8 Tobacco abuse Z72.0 05/04/18 1351 <Electronically signed by Tasia BRAGG> Date Tasia BRAGG Cosigner Signature: Date (if applicable) CC: [facility] US DRAINAGE PERITONEAL Observed: 05/02/2018 Status: F Source: [facility] 11:00 AM [facility] REPOSITORY ORIGINAL ULTRASOUND GUIDED PARACENTESIS: Therapeutic CLINICAL STATEMENT: Ascites DRAINAGE/PUNCTURE SITE: RIGHT upper abdomen QUANTITY OF FLUID REMOVED: 4850 mL CHARACTERISTICS OF FLUID: Yellow serous DISPOSITION OF FLUID: Discarded The paracentesis was performed in the usual fashion. The procedure was successful with minimal patient discomfort. No post-procedural complications were identified. IMPRESSION: Successful ultrasound-guided paracentesis. The procedure was performed by Catalina Soto, Physician Fast Food Cashier. I concur with the contents of the report. Interpreted By: Sanaz Piña DO Preliminary Report By: Catalina Soto PA Electronically Signed By: Sanaz Piña DO Dictated Date: 05/02/2018 4:06:58 PM Prelim Date: 05/02/2018 4:07:09 PM Sign Date: 05/02/2018 4:25:34 PM ABO RH BLOOD TYPE, Collected: 04/27/2018 Status: F Source: [place] PATIENT 7:55 AM [facility] REPOSITORY Order Comment: When is Plasma to be Transfused? 0900 TYPE CODE TESTS RESULT OUT OF RANGE REFERENCE UNITS LAB B10.0800 A Normal BLOOD POSITIVE TYPE GEL Performed By: #### B10.0010 #### [facility] [address] [place], [address] FFP Collected: 04/27/2018 Status: F Source: [place] 7:55 AM [facility] REPOSITORY TYPE CODE TESTS RESULT OUT OF REFERENCE UNITS RANGE LAB U100.0900 [id number] TRANSFUSED PRODUCT: Fresh Frozen Plasma COUNT: 2 Performed By: #### U100.0900 #### Non-[facility] - refer to report for specific site CHEST WITHOUT Observed: 04/27/2018 Status: F Source: [place] CONTRAST 6:54 AM [facility] REPOSITORY [facility] Imaging Services [address] [place] [address] Chest without Contrast MR#: [id number] Acct: [id number] Name: KEYLA MATTHEWS Rep #: [id number] : 1960 F 57 From: Hernandez Eli MD PCP: [facility] Status: REG CLI Study: Chest without Contrast Date of Exam: 04/27/18 Exam# [id number] Ordering Dr: Tasia Jenkins WILDLIFE MANAGER-Neva STUDY: CT CHEST WITHOUT CONTRAST REASON FOR EXAM: Female, 57 years old. The patient was scheduled for a CT-guided biopsy of the right lower lobe density. RADIATION DOSAGE (If Supplied By Facility): CTDIvol = ( 12.46 ) mGy, DLP = ( 378.29 ) mGycm TECHNIQUE: Transaxial imaging was performed without the administration of intravenous contrast material. Individualized dose optimization techniques were used for this CT. COMPARISON: Comparison is made with prior study dated March 10, 2018 and February 08, 2018. FINDINGS: The previously seen nodular density in the posterior medial segment of the right lower lobe has almost completely resolved. A linear density persists and most likely represents scarring. The biopsy was not performed. There are calcifications of the coronary arteries. Normal mediastinum. Normal hilar regions. Normal unenhanced pulmonary arteries. There is atherosclerotic calcification of the aortic arch with tortuosity and elongation of the aortic arch and descending thoracic aorta. There are multi-level degenerative changes of the thoracic spine. Ascites. CT/Chest without Contrast IMPRESSION: The biopsy of the right lower lobe nodule was not performed due to the decreased size of the nodule. At the site of nodule, there is linear density suggestive scarring. Electronically Signed: Hernandez Eli MD at 15:38 EST Tel [phone], Service support , CC: Tasia Jenkins; [facility] Learning And Development Consultant: Signed PROTHROMBIN TIME W/INR Collected: 04/26/2018 Status: F Source: [place] 10:01 AM [facility] REPOSITORY TYPE CODE TESTS RESULT OUT OF RANGE REFERENCE UNITS LAB L300.4150 11.7-14.9 SECONDS High PROTIME 19.9 LAB L300.4200 Normal INR 1.7 Performed By: #### L300.3900, L300.4310 #### [facility] [address] [place], [address] PARTIAL THROMBOPLAST Collected: 04/26/2018 Status: F Source: [place] TIME 10:01 AM [facility] REPOSITORY TYPE CODE TESTS RESULT OUT OF REFERENCE UNITS RANGE LAB L300.4310 24.1-36.2 Seconds High PTT 37.9 Performed By: #### L300.3900, L300.4310 #### [facility] [address] [place], [address] US DRAINAGE PERITONEAL Observed: 04/25/2018 Status: F Source: [facility] 10:30 AM [facility] REPOSITORY ORIGINAL ULTRASOUND GUIDED PARACENTESIS CLINICAL STATEMENT: ascites SITE: RUQ FLUID REMOVED: 5200 cc FLUID COLOR: Serous, yellow DISPOSITION OF FLUID: Discarded CATHETER/NEEDLE: 10 cm 5 Fr centesis catheter needle The procedure, risks, limitations, and alternatives were discussed. All questions were answered. Written informed consent obtained. Accompanying paperwork was verified for accuracy. Directed history and physical exam performed prior to the procedure. Medication reconciliation was performed by nursing personnel. Procedure was performed using a cap, sterile gloves, a large sterile sheet, sterile probe cover and sterile gel, hand hygiene and hospital- approved cutaneous antisepsis. Ultrasound survey demonstrates moderate amount of ascites. 8 ml of 2% lidocaine was administered at the puncture site for local anesthesia. The centesis catheter needle was advanced into the fluid. After removal of the needle, the catheter was attached to vacuum bottles and removed once no additional fluid could be removed. COMPLICATIONS: None EBL: None PATIENT CONDITION: Stable, unchanged. IMPRESSION: 1. Successful ultrasound guided paracentesis. The procedure was performed by Teresa Sarabia PA-C. Interpreted By: Tray Storm MD Preliminary Report By: Teresa Sarabia PA-C Electronically Signed By: Tray Storm MD Dictated Date: 04/26/2018 8:10:48 AM Prelim Date: 04/26/2018 8:11:25 AM Sign Date: 04/26/2018 2:11:27 PM PLATELET COUNT Collected: 04/20/2018 Status: F Source: [place] 1:22 PM [facility] REPOSITORY TYPE CODE TESTS RESULT OUT OF RANGE REFERENCE UNITS LAB L100.1900 150-450 K/mm3 Normal PLT 200 Performed By: #### L100.1900 #### [facility] [address] [place], [address] PROTHROMBIN TIME W/INR Collected: 04/20/2018 Status: F Source: [place] 1:22 PM [facility] REPOSITORY TYPE CODE TESTS RESULT OUT OF RANGE REFERENCE UNITS LAB L300.4150 11.7-14.9 SECONDS High PROTIME 20.3 LAB L300.4200 Normal INR 1.7 Performed By: #### L300.3900, L300.4310 #### [facility] [address] [place], [address] PARTIAL THROMBOPLAST Collected: 04/20/2018 Status: F Source: [place] TIME 1:22 PM [facility] REPOSITORY TYPE CODE TESTS RESULT OUT OF REFERENCE UNITS RANGE LAB L300.4310 24.1-36.2 Seconds High PTT 39.3 Performed By: #### L300.3900, L300.4310 #### [facility] [address] [place], [address] US DRAINAGE PERITONEAL Observed: 04/18/2018 Status: F Source: [facility] 11:00 AM [facility] REPOSITORY ORIGINAL ULTRASOUND GUIDED PARACENTESIS: Therapeutic CLINICAL STATEMENT: Ascites DRAINAGE/PUNCTURE SITE: RIGHT upper abdomen QUANTITY OF FLUID REMOVED: 6000 mL CHARACTERISTICS OF FLUID: Cloudy yellow serous DISPOSITION OF FLUID: Discarded The paracentesis was performed in the usual fashion. The procedure was successful with minimal patient discomfort. No post-procedural complications were identified. IMPRESSION: Successful ultrasound-guided paracentesis. The procedure was performed by Catalina Soto, Physician Fast Food Cashier. I concur with the contents of the report. Interpreted By: Sammy Bowen MD Preliminary Report By: Catalina Soto PA Electronically Signed By: Sammy Bowen MD Dictated Date: 04/18/2018 4:26:59 PM Prelim Date: 04/18/2018 4:27:51 PM Sign Date: 04/18/2018 10:35:18 PM PULMONARY VISIT REPORT Observed: 04/15/2018 Status: F Source: [place] 6:01 PM [facility] REPOSITORY [facility] [address] [place] [address] OFFICE VISIT Date of Service: 04/13/18 MR#: [id number] Acct: [id number] Name: KEYLA MATTHEWS Rep #: [id number] : 1960 Provider: Tasia Jenkins Age/Sex: 57/F Location: [facility] Status: Signed Assessment AND Plan 1. Lung mass R91.8 Plan New. Plan to evaluate with CT-guided biopsy. Blood work being obtained prior to CT-guided biopsy to make sure the patient is not at greater risk for bleeding complication. Follow-up in the office in 3 weeks to discuss test results and continue to develop a plan. Patient conveys understanding and is agreeable. Also called the PCP to discuss our plan. Orders Orders: 2. Stage 1 mild COPD by GOLD classification J44.[address] patient on a maintenance medication to hopefully get better control of her symptoms. She was personally trained on how to use the inhaler. We also discussed that there are other alternatives in this class if this medication is not covered well by her insurance. Follow-up in 3 weeks. No additional testing at this time. Orders Orders: 3. Tobacco abuse Z72.0 Plan Continue to encourage smoking cessation. Plan Detail Other Medications New: glycopyrrolate-formoterol 9-4.8 mcg (Bevespi Aer2 puffs Inhalation QAM AND QPM 1 inh 3RF osphere) Follow Up 3 Weeks (CSM) HPI 6 wk FU: Chief Complaint: Shortness of breath HPI Comments Details: This is a 57 year old F, currently under the care of Stuart Oconnell, here today to review test results. Reports shortness of breath when her abdomen filled with fluid. She gets paracentesis weekly, followed by an albumin infusion for her liver failure. Currently she is experiencing a sore throat, hoarseness and a cough that is productive of white sputum. She continues to smoke 1/2 pack of cigarettes daily. She was previously prescribed Symbicort, unfortunately was not covered by insurance. She is using her Ventolin rescue inhaler twice daily. It does provide her with temporary relief of her wheezing. She denies any chest pain or palpitations. She has not experienced any fever, chills or body aches. She denies any hemoptysis. See complete review of systems. I personally reviewed the tests/images/tracings which showed: Complete Pulmonary Function test were preformed on 03/24/18, and showed FVC of 122% of predicted, FEV1 of 108% of predicted, FEV1/FVC ratio of 70 %, TLC of 122% of predicted, RV of 96% of predicted, DLCO 76%. The test was interpreted to be consistent with irreversible mild obstructive ventilatory defect, with no significant response to bronchodilators and a preserved diffusing capacity. Pulmonary stress test was completed on 03/09/18, and did not show a drop in saturation below 89%, which suggested no requirement of supplemental oxygen on ambulation at this time. I personally reviewed a chest CT, that was completed on 03/10/18, that showed pleural based density in the right lung base that is slightly smaller in size. Intake Vital Signs04/13/18 Height 5 ft 04/13/18 Weight: 116 lb Intake Visit Reasons: 6 wk FU Health Care Marketing Specialist Required: No Accompanied by: Self Is patient in pain?: Yes Allergies No Known Allergies Allergy (Unverified 04/13/18 13:05) Medications albuterol sulfate HFA 90 mcg/actuation aerosol inhaler 2 puff INHALATION Q6H PRN 02/28/18 [History Confirmed 04/13/18] budesonide-formoterol HFA 160 mcg-4.5 mcg/actuation aerosol inhaler 2 puff INHALATION BID 02/28/18 [History Confirmed 04/13/18] cholecalciferol (vitamin D3) 50,000 unit capsule 50,000 unit PO QWEEK 02/28/18 [History Confirmed 04/13/18] cholestyramine (with sugar) 4 gram oral powder 4 g PO BID g 02/28/18 [History Confirmed 04/13/18] furosemide 20 mg tablet 20 mg PO BID tab 02/28/18 [History Confirmed 04/13/18] hydroxyzine HCl 10 mg tablet 10 mg PO TID-QID PRN 02/28/18 [History Confirmed 04/13/18] lactulose 20 gram/30 mL oral solution 20 g PO DAILY ml 02/28/18 [History Confirmed 04/13/18] levothyroxine 25 mcg tablet 25 mcg PO DAILY 02/28/18 [History Confirmed 04/13/18] nicotine 21 mg/24 hr daily transdermal patch 1 patch TRANSDERMAL DAILY 02/28/18 [History Confirmed 04/13/18] pantoprazole 40 mg tablet,delayed release 40 mg PO DAILY 02/28/18 [History Confirmed 04/13/18] spironolactone 25 mg tablet 25 mg PO BID 02/28/18 [History Confirmed 04/13/18] glycopyrrolate 9 mcg-formoterol 4.8 mcg HFA aerosol inhaler 2 puff INHALATION QAM AND QPM #1 inh 04/13/18 [Rx Confirmed 04/13/18] [facility] Medical History Alcoholic cirrhosis of liver with ascites (Chronic) Chronic obstructive pulmonary disease (Chronic) Cirrhosis (Chronic) Hypothyroidism (Chronic) Nicotine dependence, uncomplicated (Chronic) Nutritional anemia (Chronic) Surgical History H/O dilation and curettage (Resolved) Family History Father Myocardial infarction Mother Heart disease Kidney disease Liver disease Brother Brain cancer Social History current occupational status: retired pets and animals: No Smoking Status: Current every day smoker alcohol intake: former year quit: 2018 substance use type: marijuana Review of Systems Const CONSTITUTIONAL: Negative anorexia, body ache, chills, daytime sleepiness, fever(s), night sweats, oral thrush, stops breathing during sleep, weight loss, sleeping in chair, fatigue, weight loss, weight gain, frequent colds, seasonal allergies, other, headache(s) or orthopnea EETM Ear Nose Throat Mouth: Positive hearing normal, hoarseness and sore throat; negative hard of hearing, dry mouth in morning, change in vision, itchy eyes, eye pain, swallowing Difficulty, ear pain, nose bleed, headache(s), mouth pain, nasal congestion, nasal discharge, post nasal drip, sinus pain, sinus pressure or other Cardio Cardiovascular: Negative chest pain, chest pain at rest, chest pain with activity, irregular heart rhythm, edema, shortness of breath when lying down, palpitations, murmur or other Resp Respiratory: Positive as per HPI, shortness of breath, cough cough: Positive productive color: Positive white and inhalers; negative pain with cough, wheezing, chest congestion, chest tightness, pain on inspiration, increase use of rescue inhalers, snoring, apnea or other Gastro Gastrointestional: Negative bloody stools, change in appetite, difficulty swallowing, reflux, hematemesis, melena stool, loose stool, constipation or other Genitourinary: Negative blood in urine, nocturia, pain with urination or other Musc Musculoskeletal: Positive back pain; negative body pain, neck pain or other Skin/Breast Skin/Breast: Negative dry skin, itching, rash, unusual bruising, breast lump or other Neuro Neurological: Negative restless legs, confusion, weakness or other Psych Psychocological: Negative abnormal sleep pattern, anxiety, thoughts of hurting self/others, hopelessness or other Lymph Lymphatic: Negative easy bleeding, easy bruising, swollen lymph nodes or other Exam Const Constitutional: Positive conversant, cooperative, in no acute respiratory distress, well developed, well nourished, good hygiene and frail appearing Head Head: Positive normocephalic and atraumatic; negative cyanosis of lips/distal nose Eyes Eye: Positive clear conjunctiva; negative nystagmus or scleral abnormality Ears Ear: Positive hearing normal and external ears normal; negative hard of hearing Nose Nose: Positive external nose normal and no nasal discharge; negative epistaxis Mouth Mouth: Positive oral mucosae normal, no lesions and posterior oropharynx is adequate; negative post nasal drip, malodorous breath or oral thrush present Mallampati Score: I: Mallampati Score Neck Neck: Positive normal visual inspection, full ROM and trachea midline; negative lymphadenopathy, JVD or tender Chest Wall Chest: Positive normal inspection of the chest and symmetric chest movement; negative increased A/P diameter Resp lung sounds: Positive clear to auscultation, good air exchange, normal expiratory time and normal respiratory effort; negative diminished, wheezes, rhonchi, rales, dullness to percussion or wheeze present on forced exhalation Cardio Cardiac: Positive regular rate, S1 normal, S2 normal and regular rhythm; negative murmur GI GI: Positive normal to inspection; negative distended Genitourinary: Positive deferred Musc Musculoskeletal: Positive steady gait and ROM normal; negative kyphosis or scoliosis Skin Pulmonary Skin Exam: Positive intact; negative rash Pulses Pulse: Yes pulses normal x4 extremities Extremities Extremities: Yes capillary refill normal, Yes clubbing, No cyanosis, No edema Neuro Neurologic: Yes conversant, Yes no focal neuro deficits, Yes normal concentration, Yes understands questions, Yes cooperative, Yes normal cognition, Yes normal coordination Lymph Lymphatic: No lymphadenopathy, No tenderness Psych Appearance: Positive grossly normal, eye contact and well kempt Mental Status: Positive mental status grossly normal Mood: Positive congruent mood Affect: Positive normal affect Office Procedures Inhaler Training Inhaler Training Procedure performed by: Tasia Jenkins Inhaler Training: Yes personally trained on inhaler use, sample provided, first dose given in the office, expresses understanding and continue to monitor Coding Level of Care Code Off vis,est,level 4 Diagnoses Lung mass R91.8 Stage 1 mild COPD by GOLD classification J44.9 Tobacco abuse Z72.0 04/15/18 1801 <Electronically signed by Tasia Jenkins WILDLIFE MANAGER-C> Date Tasia Jenkins WILDLIFE MANAGER-C Cosigner Signature: Date (if applicable) CC: [facility] US DRAINAGE PERITONEAL Observed: 04/11/2018 Status: F Source: [place] 10:30 AM [facility] REPOSITORY ORIGINAL ULTRASOUND GUIDED PARACENTESIS: Therapeutic CLINICAL STATEMENT: Ascites DRAINAGE/PUNCTURE SITE: RIGHT upper abdomen QUANTITY OF FLUID REMOVED: 6000 mL CHARACTERISTICS OF FLUID: Yellow serous DISPOSITION OF FLUID: Discarded The paracentesis was performed in the usual fashion. The procedure was successful with minimal patient discomfort. No post-procedural complications were identified. IMPRESSION: Successful ultrasound-guided paracentesis. The procedure was performed by Catalina Soto, Physician Fast Food Cashier. I concur with the contents of the report. Interpreted By: Sanaz Piña DO Preliminary Report By: Catalina Soto Electronically Signed By: Sanaz Piña DO Dictated Date: 04/11/2018 6:43:19 PM Prelim Date: 04/11/2018 6:43:30 PM Sign Date: 04/11/2018 7:56:50 PM 6 MINUTE WALK TEST Observed: 04/05/2018 Status: F Source: [place] 12:36 PM [facility] REPOSITORY [facility] Pulmonary Services/Neurology [address] [place] [address] MR#: [id number] Acct: [id number] Name: KEYLA MATTHEWS Rep #: [id number] : 1960 57 From: Israel Gonzalez DO Referring Dr: Israel Gonzalez D.O. Date: Ordering Dr: Sex: F C Location: PSN PSN 6 Minute Walk Test - 6 Minute Walk Test 6 Minute Walk Test: 6 Minute Walk Test PSN:6-Minute Walk Test Start: 03/09/18 12:42 Freq: Status: Active Protocol: [id number] Document 03/09/18 12:42 [place] (Rec: 03/09/18 12:46 SFENTON [id number]) 6 Minute Walk Test Date Performed 03/09/18 Time Performed 12:30 Height 5 ft Weight: 115 lb Weight in Pounds 115.[address]: Israel Gonzalez Assistive device used: None Pre-test Oxygen Delivery Method Room Air Pulse Ox (%) 100 Pulse Rate (60-100 beats/min) 94 Dyspnea Anthony Scale (0-10) 0.5 Exertion Anthony Scale (6-20) 6 1st minute Oxygen Delivery Method Room Air Pulse Ox (%) 100 Pulse Rate (60-100 beats/min) 102 H 2nd minute Oxygen Delivery Method Room Air Pulse Ox (%) 100 Pulse Rate (60-100 beats/min) 107 H 3rd minute Oxygen Delivery Method Room Air Pulse Ox (%) 100 Pulse Rate (60-100 beats/min) 106 H 4th minute Oxygen Delivery Method Room Air Pulse Ox (%) 100 Pulse Rate (60-100 beats/min) 104 H 5th minute Oxygen Delivery Method Room Air Pulse Ox (%) 100 Pulse Rate (60-100 beats/min) 104 H 6th minute Oxygen Delivery Method Room Air Pulse Ox (%) 100 Pulse Rate (60-100 beats/min) 102 H Dyspnea Anthony Scale (0-10) 0.5 Exertion Anthony Scale (6-20) 12 Post-test Oxygen Delivery Method Room Air Pulse Ox (%) 100 Pulse Rate (60-100 beats/min) 91 Full Laps Walked 15 Partial Lap, Number of Tiles Walked 20 Total Distance Walked (ft) 905 - Interpretation Interpretation: The patient ambulated 905 feet over the course of 6 minutes beginning on room air without assistive devices or breaks. Pretesting oxygen saturation was noted to be 100% on room air. With ambulation, the kike oxygen saturation was 100%. There was no significant exertional oxygen desaturation. - Recommendations Recommendations: There is no indication for the use of supplemental oxygen. 04/05/18 1236 <Electronically signed by Israel Gonzalez DO> Date Israel Gonzalez DO CC: Date Dictated: 03/10/18 1119 Date Transcribed: 03/10/189 Learning And Development Consultant: Israel Gonzalez DO Signed US DRAINAGE PERITONEAL Observed: 03/29/2018 Status: F Source: [place] 9:00 AM [facility] REPOSITORY ORIGINAL ULTRASOUND GUIDED PARACENTESIS CLINICAL STATEMENT: ascites SITE: RUQ FLUID REMOVED: 6000 cc FLUID COLOR: Serous, yellow DISPOSITION OF FLUID: Discarded CATHETER/NEEDLE: 10 cm 5 Fr centesis catheter needle The procedure, risks, limitations, and alternatives were discussed. All questions were answered. Written informed consent obtained. Accompanying paperwork was verified for accuracy. Directed history and physical exam performed prior to the procedure. Medication reconciliation was performed by nursing personnel. Procedure was performed using a cap, sterile gloves, a large sterile sheet, sterile probe cover and sterile gel, hand hygiene and hospital- approved cutaneous antisepsis. Ultrasound survey demonstrates large amount of ascites. 8 ml of 2% lidocaine was administered at the puncture site for local anesthesia. The centesis catheter needle was advanced into the fluid. After removal of the needle, the catheter was attached to vacuum bottles and removed once no additional fluid could be removed. COMPLICATIONS: None EBL: None PATIENT CONDITION: Stable, unchanged. IMPRESSION: 1. Successful ultrasound guided paracentesis. The procedure was performed by Teresa Sarabia PA-C. Interpreted By: Sanaz Piña DO Preliminary Report By: Teresa Sarabia PA-C Electronically Signed By: Sanaz Piña DO Dictated Date: 03/29/2018 4:16:15 PM Prelim Date: 03/29/2018 4:16:59 PM Sign Date: 03/29/2018 5:49:25 PM PULMONARY FUNCTION Observed: 03/25/2018 Status: F Source: [place] [facility] 8:24 [facility] Pulmonary Services/Neurology [address] [place] [address] MR#: [id number] Acct: [id number] Name: KEYLA MATTHEWS Rep #: [id number] : 1960 57 From: Israel Gonzalez DO Referring Dr: Israel Gonzalez D.O. Status: REG CLI Ordering Dr: Date: Location: PSN Sex: F C INTRODUCTION: The patient is a 57-year-old female that presents for pulmonary function studies secondary to a diagnosis of COPD. Respiratory therapy reports good patient effort. Bronchodilators were used during testing. INTERPRETATION: Forced expiration spirometry demonstrates the presence of a mild large airways obstructive ventilatory defect. There was no significant response to aerosolized bronchodilators. Spirograms are of good quality and do not plateau indicating slow emptying of the lungs. Body plethysmography was performed and reveals a mildly elevated TLC to 122% of predicted, indicative of a mild degree of hyperinflation. Diffusing capacity by single breath CO is within normal limits at 76% of predicted. IMPRESSION: These pulmonary function studies demonstrate the presence of an irreversible mild large airways obstructive ventilatory defect with an associated very mild degree of hyperinflation and preserved diffusing capacity. 03/25/18823 <Electronically signed by Israel Gonzalez DO> Date Israel Gonzalez DO CC: Israel Gonzalez D.O.; [facility] Date Dictated: 03/25/18821 Date Transcribed: 03/25/18821 Learning And Development Consultant: CAMRYN Signed US DRAINAGE PERITONEAL Observed: 03/18/2018 Status: F Source: [place] 10:30 AM [facility] [place] REPOSITORY ORIGINAL ULTRASOUND GUIDED PARACENTESIS: Therapeutic CLINICAL STATEMENT: Ascites DRAINAGE/PUNCTURE SITE: RIGHT upper abdomen QUANTITY OF FLUID REMOVED: 5700 mL CHARACTERISTICS OF FLUID: Yellow serous DISPOSITION OF FLUID: Discarded The paracentesis was performed in the usual fashion. The procedure was successful with minimal patient discomfort. No post-procedural complications were identified. IMPRESSION: Successful ultrasound-guided paracentesis. The procedure was performed by Catalina Soto, Physician Fast Food Cashier. I concur with the contents of the report. Interpreted By: Sanaz Piña DO Preliminary Report By: Catalina Soto Electronically Signed By: Sanaz Piña DO Dictated Date: 03/18/2018 4:15:42 PM Prelim Date: 03/18/2018 4:15:51 PM Sign Date: 03/18/2018 9:23:03 PM US DRAINAGE PERITONEAL Observed: 03/11/2018 Status: F Source: [facility] 9:00 AM [facility] REPOSITORY ORIGINAL ULTRASOUND GUIDED PARACENTESIS: Therapeutic CLINICAL STATEMENT: Ascites DRAINAGE/PUNCTURE SITE: RIGHT upper abdomen QUANTITY OF FLUID REMOVED: 6 L CHARACTERISTICS OF FLUID: Cloudy yellow serous DISPOSITION OF FLUID: Discarded The paracentesis was performed in the usual fashion. The procedure was successful with minimal patient discomfort. No post-procedural complications were identified. IMPRESSION: Successful ultrasound-guided paracentesis. The procedure was performed by Catalina Soto, Physician Fast Food Cashier. I concur with the contents of the report. Interpreted By: Shant Tucker MD Preliminary Report By: Catalina Soto Electronically Signed By: Shant Tucker MD Dictated Date: 03/11/2018 11:02:08 AM Prelim Date: 03/11/2018 11:02:22 AM Sign Date: 03/11/2018 11:45:47 AM CHEST WITH CONTRAST Observed: 03/10/2018 Status: F Source: [place] 1:21 PM [facility] REPOSITORY [facility] Imaging Services [address] [place] [address] Chest WITH Contrast MR#: [id number] Acct: [id number] Name: KEYLA MATTHEWS Rep #: [id number] : 1960 F 57 From: Joon Rubio MD PCP: [facility] Status: REG CLI Study: Chest WITH Contrast Date of Exam: 03/10/18 Exam# [id number] Ordering Dr: Israel Gonzalez DO STUDY: CT CHEST WITH CONTRAST REASON FOR EXAM: Female, 57 years old. Shortness of breath, cough, follow-up right-sided lung nodule RADIATION DOSAGE (If Supplied By Facility): CTDIvol = ( 10.05 ) mGy, DLP = ( 229.44 ) mGycm TECHNIQUE: Transaxial imaging was performed following intravenous administration of 100 ml of Isovue 300 contrast material. Individualized dose optimization techniques were used for this CT. COMPARISON: Prior study of 02/08/2018 FINDINGS: There is a pleural-based density of the posterior right lung base measuring 3.0 x 1.4 x 2.4 cm slightly decreased in size in the interval. This previously measured 3.5 x 1.3 x 2.8 cm. There has been interval resolution of a small right-sided effusion noted previously. The heart size is within normal limits. There is a trace pericardial effusion. Coronary arterial calcific lesions are present. Normal mediastinum. Normal hilar regions. Normal enhanced pulmonary arteries. The calcified plaques of the thoracic aorta. There are multi-level degenerative changes of the thoracic spine. There is a large amount of intra-abdominal ascites. There is a subcentimeter low-attenuation focus at the dome of the right hepatic lobe measuring cyst density. CT/Chest WITH Contrast IMPRESSION: Decrease in size of previously noted pleural-based density of the posterior right lung base previously measuring 3.0 x 1.4 x 2.[address] follow-up is recommended. There has been interval resolution of a small right-sided effusion previously noted. Trace pericardial effusion. Large amount of intra-abdominal ascites. Electronically Signed: Joon Rubio MD at 21:01 EDT , Service support , CC: Israel Gonzalez D.O.; [facility] Learning And Development Consultant: Signed US DRAINAGE PERITONEAL Observed: 03/04/2018 Status: F Source: [place] 10:00 AM [facility] ORIGINAL ULTRASOUND GUIDED PARACENTESIS CLINICAL STATEMENT: Patient has a history of alcoholic cirrhosis with ascites SITE: RUQ FLUID REMOVED: 6000 cc FLUID COLOR: Yellow serous DISPOSITION OF FLUID: Therapeutic CATHETER/NEEDLE: 5 Fr once step catheter needle The procedure, risks, limitations, and alternatives were discussed. All questions were answered. Written informed consent was obtained. Accompanying paperwork was verified for accuracy. Directed history and physical exam performed prior to the procedure. Medication reconciliation was performed by nursing personnel. Procedure was performed using a cap, sterile gloves, a large sterile sheet, hand hygiene and hospital-approved cutaneous antisepsis. Ultrasound survey demonstrates ascites. 2% lidocaine was administered at the puncture site for local anesthesia. The centesis catheter needle was advanced into the fluid. After removal of the needle, the catheter was attached to vacuum bottles and removed once no additional fluid could be removed. COMPLICATIONS: None EBL: None PATIENT CONDITION: unchanged IMPRESSION: 1. Successful ultrasound guided paracentesis. The procedure was performed by Ashley Patel PA-C. I concur with the contents of this report. Interpreted By: Sammy Bowen MD Preliminary Report By: Ashley Patel PA-C Electronically Signed By: Sammy Bowne MD Dictated Date: 03/04/2018 5:09:05 PM Prelim Date: 03/04/2018 5:10:48 PM Sign Date: 03/05/2018 2:42:53 PM PULMONARY VISIT REPORT Observed: 03/01/2018 Status: F Source: [place] 1:17 PM [facility] REPOSITORY [facility] [address] [place] [address]. [address] [place] [address] OFFICE VISIT Date of Service: 03/01/18 MR#: [id number] Acct: [id number] Name: KEYLA MATTHEWS Rep #: [id number] : 1960 Provider: Israel Gonzalez D.O. Age/Sex: 57/F Location: [facility] Status: Signed Assessment AND Plan 1. Chronic obstructive pulmonary disease J44.9 Plan The patient has a presumptive history of COPD, based upon her extensive smoking history. However, she has never undergone formal pulmonary function testing. Therefore, we will proceed with obtaining baseline PFTs along with a 6-minute walk test to assess for any exertional hypoxia. The patient has been advised to continue the use of her Symbicort in the interim. The patient will have short interval follow-up with our nurse practitioner to review the results of her testing. Orders Orders: 2. Abnormal chest CT R93.89 Plan The patient's recent low-dose CT scan did reveal evidence of a possible right lower lobe cavitary lesion, the etiology and chronicity of which is unclear. There is surrounding pleural effusion which obstructs the complete view of the abnormality. I have recommended patient that we obtain a regular contrasted chest CT for further evaluation of the right lower lobe lung abnormality. Additional recommendations will be forthcoming, depending on the results of that imaging study. Orders Orders: 3. Nicotine dependence, cigarettes, uncomplicated F17.210 Plan I personally spent 5 minutes discussing the deleterious effects of ongoing tobacco use with the patient, including modalities which could be utilized to achieve a smoke-free lifestyle. The patient is not yet ready to make strides towards quitting smoking. Orders Orders: Plan Detail Follow Up 6 Weeks (CSM) HPI HPI Comments Details: The patient is a 57-year-old female who presents to the clinic today in referral from the [facility] for evaluation of COPD. The patient reports a smoking history that includes upwards of 2-3 packs/day x 41 years. However, the patient reports that she has recently cut back to 0.5 packs/day. She also has a long-standing alcohol dependence history with underlying alcohol cirrhosis and recurrent ascites. She has been abstinent from alcohol since September 2017. She currently follows with a rn informatics in [facility]. 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 She has never undergone formal pulmonary function testing. She is currently prescribed both Symbicort and and as needed albuterol rescue inhaler. She did undergo a low-dose CT scan of her chest in January 2018 which revealed evidence of emphysematous changes and a cavitary lesion in the right lower lobe measuring 3.5 x 2.8 cm. The patient denies ever having had any form of previous chest imaging studies completed. In addition to smoking cigarettes, the patient does report occasional marijuana use. She does not have any pets at home. She does have a cough which is chronically productive of sputum. She denies the presence of chest tightness or wheezing. Her weight fluctuates due to her underlying ascites. Her appetite is marginal. She does readily admit that she oftentimes forgets to utilize her Symbicort maintenance inhaler. She denies fevers, chills or night sweats. She additionally denies the presence of chest pain, dizziness or lightheadedness. Intake Vital Signs03/01/18 Height 5 ft Intake Visit Reasons: COPD Health Care Marketing Specialist Required: No Accompanied by: Self Is patient in pain?: Yes Allergies No Known Allergies Allergy (Unverified 03/01/18 07:08) Medications albuterol sulfate HFA 90 mcg/actuation aerosol inhaler 2 puff INHALATION Q6H PRN 02/28/18 [History Confirmed 03/01/18] budesonide-formoterol HFA 160 mcg-4.5 mcg/actuation aerosol inhaler 2 puff INHALATION BID 02/28/18 [History Confirmed 03/01/18] cholecalciferol (vitamin D3) 50,000 unit capsule 50,000 unit PO QWEEK 02/28/18 [History Confirmed 03/01/18] cholestyramine (with sugar) 4 gram oral powder 4 g PO BID g 02/28/18 [History Confirmed 03/01/18] furosemide 20 mg tablet 20 mg PO BID tab 02/28/18 [History Confirmed 03/01/18] hydroxyzine HCl 10 mg tablet 10 mg PO TID-QID PRN 02/28/18 [History Confirmed 03/01/18] lactulose 20 gram/30 mL oral solution 20 g PO DAILY ml 02/28/18 [History Confirmed 03/01/18] levothyroxine 25 mcg tablet 25 mcg PO DAILY 02/28/18 [History Confirmed 03/01/18] nicotine 21 mg/24 hr daily transdermal patch 1 patch TRANSDERMAL DAILY 02/28/18 [History Confirmed 03/01/18] pantoprazole 40 mg tablet,delayed release 40 mg PO DAILY 02/28/18 [History Confirmed 03/01/18] spironolactone 25 mg tablet 25 mg PO BID 02/28/18 [History Confirmed 03/01/18] [facility] Medical History Alcoholic cirrhosis of liver with ascites (Chronic) Chronic obstructive pulmonary disease (Chronic) Cirrhosis (Chronic) Hypothyroidism (Chronic) Nicotine dependence, uncomplicated (Chronic) Nutritional anemia (Chronic) Surgical History H/O dilation and curettage (Resolved) Family History Father Myocardial infarction Mother Heart disease Kidney disease Liver disease Brother Brain cancer Social History current occupational status: retired pets and animals: No Smoking Status: Current every day smoker alcohol intake: former year quit: 2018 substance use type: marijuana Review of Systems Const CONSTITUTIONAL: Positive fatigue; negative anorexia, body ache, chills, daytime sleepiness, fever(s), night sweats, oral thrush, stops breathing during sleep, weight loss, sleeping in chair, weight loss, weight gain, frequent colds, seasonal allergies, other, headache(s) or orthopnea EETM Ear Nose Throat Mouth: Positive hearing normal, hoarseness and nasal discharge; negative hard of hearing, dry mouth in morning, change in vision, itchy eyes, eye pain, swallowing Difficulty, ear pain, nose bleed, headache(s), mouth pain, nasal congestion, post nasal drip, sinus pain, sinus pressure, sore throat or other Cardio Cardiovascular: Negative chest pain, chest pain at rest, chest pain with activity, irregular heart rhythm, edema, shortness of breath when lying down, palpitations, murmur or other Resp Respiratory: Positive as per HPI, shortness of breath and cough cough: Positive productive color: Positive white; negative pain with cough, wheezing, chest congestion, chest tightness, pain on inspiration, inhalers, increase use of rescue inhalers, snoring, apnea or other Gastro Gastrointestional: Negative bloody stools, change in appetite, difficulty swallowing, reflux, hematemesis, melena stool, loose stool, constipation or other Genitourinary: Negative blood in urine, nocturia, pain with urination or other Musc Musculoskeletal: Positive back pain; negative body pain, neck pain or other Skin/Breast Skin/Breast: Negative dry skin, itching, rash, unusual bruising, breast lump or other Neuro Neurological: Negative confusion, restless legs, weakness or other Psych Psychocological: Negative abnormal sleep pattern, anxiety, thoughts of hurting self/others, hopelessness or other Lymph Lymphatic: Negative easy bleeding, easy bruising, swollen lymph nodes or other Exam Const Constitutional: Positive conversant, cooperative, in no acute respiratory distress, well developed, thin and smells of smoke Head Head: Positive normocephalic and atraumatic; negative cyanosis of lips/distal nose Eyes Eye: Positive clear conjunctiva; negative nystagmus or scleral abnormality Ears Ear: Positive hearing normal and external ears normal; negative hard of hearing Nose Nose: Positive external nose normal; negative epistaxis Mouth Mouth: Positive no lesions, oral mucosae normal and posterior oropharynx is adequate; negative post nasal drip Mallampati Score: II: Mallampati Score Vocal hoarseness present Neck Neck: Positive normal visual inspection and trachea midline; negative lymphadenopathy Chest Wall Chest: Positive symmetric chest movement Normal AP diameter. Resp lung sounds: Positive good air exchange; negative wheezes, rhonchi or rales Occasional moist cough noted Cardio Cardiac: Positive regular rate, regular rhythm, S1 normal and S2 normal; negative murmur GI GI: Positive normal bowel sounds Soft without distention Genitourinary: Positive deferred Musc Musculoskeletal: Positive steady gait Skin Pulmonary Skin Exam: Positive intact; negative rash or lesion Pulses Pulse: Yes Pedal pulses present: Extremities Extremities: No clubbing, No cyanosis, No edema Neuro Neurologic: Yes conversant, Yes no focal neuro deficits, Yes cooperative Lymph Lymphatic: No lymphadenopathy Psych Appearance: Positive grossly normal Mental Status: Positive mental status grossly normal Mood: Positive congruent mood Affect: Positive normal affect Pulmonary Procedure Smoking Cessation Education: Yes education provided, 3-10 minutes and needs reinforcement Coding Level of Care Code Off vis,new,level 4 Diagnoses Chronic obstructive pulmonary disease J44.[address] R93.89 Nicotine dependence, cigarettes, uncomplicated F17.210 03/01/18 1317 <Electronically signed by Israel Gnozalez DO> Date Israel Gonzalez DO Cosigner Signature: Date (if applicable) CC: [facility] US DRAINAGE PERITONEAL Observed: 02/24/2018 Status: F Source: [facility] 10:00 AM [facility] REPOSITORY ORIGINAL ULTRASOUND GUIDED PARACENTESIS CLINICAL STATEMENT: ascites SITE: RUQ FLUID REMOVED: 6000 cc FLUID COLOR: Cloudy yellow DISPOSITION OF FLUID: Discarded CATHETER/NEEDLE: 10 cm 5 Fr centesis catheter needle The procedure, risks, limitations, and alternatives were discussed. All questions were answered. Written informed consent obtained. Accompanying paperwork was verified for accuracy. Directed history and physical exam performed prior to the procedure. Medication reconciliation was performed by nursing personnel. Procedure was performed using a cap, sterile gloves, a large sterile sheet, hand hygiene and hospital-approved cutaneous antisepsis. Ultrasound survey demonstrates large amount of ascites. 10 ml of 2% lidocaine was administered at the puncture site for local anesthesia. The centesis catheter needle was advanced into the fluid. After removal of the needle, the catheter was attached to vacuum bottles and removed once no additional fluid could be removed. COMPLICATIONS: None EBL: None PATIENT CONDITION: Stable, unchanged. IMPRESSION: 1. Successful ultrasound guided paracentesis. The study was performed by the physician assistant softball coach Teresa Sarabia. I concur with the contents of the report. Interpreted By: Sammy Bowen MD Preliminary Report By: Teresa Sarabia PA-C Electronically Signed By: Sammy Bowen MD Dictated Date: 02/24/2018 12:42:57 PM Prelim Date: 02/24/2018 12:43:35 PM Sign Date: 02/24/2018 4:38:22 PM SCREENING MAMM (CAD), Observed: 02/19/2018 Status: F Source: [place] 8:47 AM [facility] REPOSITORY [facility] Imaging Services [address] [place] [id number] SCREENING MAMM (CAD), BILAT MR#: [id number] Acct: [id number] Name: KEYLA MATTHEWS Rep #: [id number] : 1960 F 57 From: Joyce Francisco MD PCP: [facility] Status: REG CLI Study: SCREENING MAMM (CAD), BILAT Date of Exam: 02/19/18 Exam# [id number] Ordering Dr: Stuart Worrell MAMMOGRAPHY - BILATERAL SCREENING 3-D OREN SYNTHESIS REASON FOR EXAM: Female, 57 years old. Bilateral Screening 3-D tomosynthesis PERTINENT HISTORY: Asymptomatic. Recent loss 50 pounds. Recent diagnosis cirrhosis. No significant family history given. TECHNIQUE: 2-D mammograms and 3-D Oren synthesis of the breast (s) were performed. CAD was performed. COMPARISON: None available. FINDINGS: The breast composition is composed of scattered fibroglandular density. Scattered benign calcifications are seen. No dense spiculated masses or suspicious microcalcifications are identified. No architectural distortion is identified. There is no nipple retraction. However, periareolar bilateral skin thickening is suggested versus compression. BI/SCREENING MAMM (CAD), BILAT IMPRESSION: No definitive mammographic sign of malignancy identified. Increased density areolar and periareolar regions bilaterally, may be due to skin thickening versus compression projection. Also chest wall edema patient with cirrhosis and ascites may be present bilaterally. Clinical correlation recommended. Routine yearly mammograms recommended. ASSESSMENT CATEGORY: BIRADS Category 2: Benign. A letter regarding these results will be sent to the patient by the facility within 30 days. FOLLOW UP RECOMMENDATION: Yearly follow up mammogram recommended. (A) Clinical correlation recommended for periareolar bilateral skin thickening versus compression projection recommended. Comparison to any prior mammograms would be helpful. Negative mammographic results should not deter biopsy as a palpable lesion should be followed based on clinical grounds and biopsy performed if clinically persistent for 3 months or increasing size. Approximately 10% of breast cancers are not detected by mammography. A normal mammogram should not delay biopsy of a clinically suspicious abnormality. Dense breast tissue may obscure neoplasm. Electronically Signed: Joyce Francisco, at 18:02 EDT Tel , Service support , CC: [facility] Learning And Development Consultant: Signed US DRAINAGE PERITONEAL Observed: 02/16/2018 Status: F Source: [place] 9:30 AM [facility] REPOSITORY ORIGINAL ULTRASOUND GUIDED PARACENTESIS CLINICAL STATEMENT: Patient has a history of alcoholic cirrhosis with ascites SITE: RUQ FLUID REMOVED: 3800 cc FLUID COLOR: Yellow serous DISPOSITION OF FLUID: Discarded CATHETER/NEEDLE: 5 Fr once step catheter needle The procedure, risks, limitations, and alternatives were discussed. All questions were answered. Written informed consent was obtained. Accompanying paperwork was verified for accuracy. Directed history and physical exam performed prior to the procedure. Medication reconciliation was performed by nursing personnel. Procedure was performed using a cap, sterile gloves, a large sterile sheet, hand hygiene and hospital-approved cutaneous antisepsis. Ultrasound survey demonstrates ascites. 2% lidocaine was administered at the puncture site for local anesthesia. The centesis catheter needle was advanced into the fluid. After removal of the needle, the catheter was attached to vacuum bottles and removed once no additional fluid could be removed. COMPLICATIONS: None EBL: None PATIENT CONDITION: unchanged IMPRESSION: 1. Successful ultrasound guided paracentesis. Procedure was performed by Ashley Patel PA-C. Interpreted By: April Craft MD Preliminary Report By: Ashley Patel PA-C Electronically Signed By: April Craft MD Dictated Date: 02/16/2018 4:50:36 PM Prelim Date: 02/16/2018 4:51:00 PM Sign Date: 02/16/2018 4:55:54 PM US DRAINAGE PERITONEAL Observed: 02/09/2018 Status: F Source: [facility] 9:00 AM [facility] [place] REPOSITORY ORIGINAL ULTRASOUND GUIDED PARACENTESIS CLINICAL STATEMENT: Patient has a history of alcoholic cirrhosis with ascites SITE: RUQ FLUID REMOVED: 6000 cc FLUID COLOR: Yellow serous DISPOSITION OF FLUID: Discarded CATHETER/NEEDLE: 5 Fr once step catheter needle The procedure, risks, limitations, and alternatives were discussed. All questions were answered. Written informed consent was obtained. Accompanying paperwork was verified for accuracy. Directed history and physical exam performed prior to the procedure. Medication reconciliation was performed by nursing personnel. Procedure was performed using a cap, sterile gloves, a large sterile sheet, hand hygiene and hospital-approved cutaneous antisepsis. Ultrasound survey demonstrates ascites. 2% lidocaine was administered at the puncture site for local anesthesia. The centesis catheter needle was advanced into the fluid. After removal of the needle, the catheter was attached to vacuum bottles and removed once no additional fluid could be removed. COMPLICATIONS: None EBL: None PATIENT CONDITION: unchanged IMPRESSION: 1. Successful ultrasound guided paracentesis. Procedure was performed by Ashley Patel PA-C. Interpreted By: Shant Tucker MD Preliminary Report By: Ashley Patel PA-C Electronically Signed By: Shant Tucker MD Dictated Date: 02/09/2018 4:46:02 PM Prelim Date: 02/09/2018 4:46:28 PM Sign Date: 02/09/2018 4:49:[address] LUNG Observed: 02/08/2018 Status: F Source: [place] 1:15 PM [facility] REPOSITORY [facility] Imaging Services [address] [place] [address] Lung Screening MR#: [id number] Acct: [id number] Name: KEYLA MATTHEWS Rep #: [id number] : 1960 F 57 From: Reggie Molina PCP: [facility] Status: REG CLI Study: Low Dose CT Lung Screening Date of Exam: 02/08/18 Exam# [id number] Ordering Dr: Kd Garza WILDLIFE MANAGER-C STUDY: LOW DOSE CT LUNG CANCER SCREENING REASON FOR EXAM: Female, 57 years old. COPD. Tobacco abuse. RADIATION DOSAGE (If Supplied By Facility): CTDIvol = ( 2.01 ) mGy, DLP = ( 59.92 ) mGycm TECHNIQUE: No contrast was administered. Low dose technique was utilized (average mAS-38 and kVp 120). 1.25 mm axial source images with a slice interval of 1.25- mm were reconstructed in lung windows. 2.5 mm axial source images with a slice interval of 2.5-mm were reconstructed in lung windows. 5.0 mm axial source images with a slice interval of 5.0-mm were reconstructed in soft tissue windows. Nodule measured using lung windows on PACS and/or independent workstation with automated measurement of minimum and maximum diameter. Nodule measurement reported as average diameter rounded to the nearest whole number. Growth is defined as an increase ins size of greater than 1.5 mm. COMPARISON: None. NODULES: Total lung nodules (excluding granulomas): 0 Emphysema: There is emphysematous changes of the lungs.. A small right pleural effusion which invaginates into the upper oblique fissure. At the right lung base there is a air containing focus containing soft tissue along the posterior pleural margin right lower lobe suggesting a cavitary lesion. This measures 3.5 x 1.3 x 2.8 cm. Endobronchial lesion: None Aorta: There is atherosclerotic changes of the thoracic aorta without aneurysm. Coronary arteries: There are coronary artery calcifications. Heart: The heart is normal in size. There is a small pericardial effusion. Pulmonary artery: Normal Mediastinal nodes: There is nonspecific subcentimeter paratracheal and precarinal lymphadenopathy. Other chest and abdominal findings: There are minimal degenerative changes lumbar spine. There is diffuse ascites seen within the abdomen. CT/Low Dose CT Lung Screening IMPRESSION: Lung-RADS category S IMPORTANT NOTES FOR USE: ACR Lung-RADS Version 1.0 Assessment Categories Release Date: September 11, 2013 Category: Coded 0-4 bases on nodule(s) with highest degree of suspicion. Negative screen is defined as categories 1 and 2; a positive screen is defined as categories 3 and 4. Category 3 and 4A nodules that are unchanged on interval CT should be coded as category 2, and individuals returned to screening in 12 months. Category 4X: Category 3 or 4 nodules with additional imaging findings that increase the suspicion of lung cancer, such as spiculation, GGN that doubles in size in 1 year, enlarged lymph notes, etc. Category Modifiers: S (significant finding unrelated to lung cancer) and C (prior history of treated lung cancer) may be added to the 0-4 Lung-RADS Electronically Signed: Reggie Molina DO at 19:40 EDT Tel [phone], Service support , CC: Kd ALEXANDRA; [facility] Learning And Development Consultant: Signed US DRAINAGE PERITONEAL Observed: 01/26/2018 Status: F Source: [place] 8:30 AM [facility] REPOSITORY ORIGINAL ULTRASOUND GUIDED PARACENTESIS CLINICAL STATEMENT: ascites SITE: RUQ FLUID REMOVED: 4100 cc FLUID COLOR: Serous, yellow DISPOSITION OF FLUID: Discarded CATHETER/NEEDLE: 10 cm 5 Fr centesis catheter needle The procedure, risks, limitations, and alternatives were discussed. All questions were answered. Written informed consent obtained. Accompanying paperwork was verified for accuracy. Directed history and physical exam performed prior to the procedure. Medication reconciliation was performed by nursing personnel. Procedure was performed using a cap, sterile gloves, a large sterile sheet, hand hygiene and hospital-approved cutaneous antisepsis. Ultrasound survey demonstrates moderate amount of ascites. 10 ml of 2% lidocaine was administered at the puncture site for local anesthesia. The centesis catheter needle was advanced into the fluid. After removal of the needle, the catheter was attached to vacuum bottles and removed once no additional fluid could be removed. COMPLICATIONS: None EBL: None PATIENT CONDITION: Stable, unchanged. IMPRESSION: 1. Successful ultrasound guided paracentesis. The procedure was performed by Teresa Sarabia PA-C. Interpreted By: Tray Storm MD Preliminary Report By: Teresa Sarabia PA-C Electronically Signed By: Tray Storm MD Dictated Date: 01/26/2018 11:02:04 AM Prelim Date: 01/26/2018 11:02:36 AM Sign Date: 01/26/2018 6:04:09 PM US DRAINAGE PERITONEAL Observed: 01/19/2018 Status: F Source: [facility] 9:30 AM [facility] [place] REPOSITORY ORIGINAL ULTRASOUND GUIDED PARACENTESIS CLINICAL STATEMENT: Patient has a history of alcoholic cirrhosis with ascites SITE: RUQ FLUID REMOVED: 5000 cc FLUID COLOR: Yellow serous DISPOSITION OF FLUID: Discarded CATHETER/NEEDLE: 5 Fr once step catheter needle The procedure, risks, limitations, and alternatives were discussed. All questions were answered. Written informed consent was obtained. Accompanying paperwork was verified for accuracy. Directed history and physical exam performed prior to the procedure. Medication reconciliation was performed by nursing personnel. Procedure was performed using a cap, sterile gloves, a large sterile sheet, hand hygiene and hospital-approved cutaneous antisepsis. Ultrasound survey demonstrates ascites. 2% lidocaine was administered at the puncture site for local anesthesia. The centesis catheter needle was advanced into the fluid. After removal of the needle, the catheter was attached to vacuum bottles and removed once no additional fluid could be removed. COMPLICATIONS: None EBL: None PATIENT CONDITION: unchanged IMPRESSION: 1. Successful ultrasound guided paracentesis. Procedure was performed by Ashley Patel PA-C. Interpreted By: April Craft MD Preliminary Report By: Ashley Patel PA-C Electronically Signed By: April Craft MD Dictated Date: 01/19/2018 10:54:51 AM Prelim Date: 01/19/2018 10:55:10 AM Sign Date: 01/19/2018 12:23:41 PM US DRAINAGE PERITONEAL Observed: 01/11/2018 Status: F Source: [facility] 11:00 AM [facility] [place] REPOSITORY ORIGINAL ULTRASOUND GUIDED PARACENTESIS CLINICAL STATEMENT: Patient has a history of alcoholic cirrhosis with ascites SITE: RUQ FLUID REMOVED: 6000 cc FLUID COLOR: Yellow serous DISPOSITION OF FLUID: Discarded CATHETER/NEEDLE: 5 Fr once step catheter needle The procedure, risks, limitations, and alternatives were discussed. All questions were answered. Written informed consent was obtained. Accompanying paperwork was verified for accuracy. Directed history and physical exam performed prior to the procedure. Medication reconciliation was performed by nursing personnel. Procedure was performed using a cap, sterile gloves, a large sterile sheet, hand hygiene and hospital-approved cutaneous antisepsis. Ultrasound survey demonstrates ascites. 2% lidocaine was administered at the puncture site for local anesthesia. The centesis catheter needle was advanced into the fluid. After removal of the needle, the catheter was attached to vacuum bottles and removed once no additional fluid could be removed. COMPLICATIONS: None EBL: None PATIENT CONDITION: unchanged IMPRESSION: 1. Successful ultrasound guided paracentesis. Procedure was performed by Ashley Patel PA-C. Interpreted By: Tray Storm MD Preliminary Report By: Ashley Patel PA-C Electronically Signed By: Tray Storm MD Dictated Date: 01/11/2018 3:43:22 PM Prelim Date: 01/11/2018 3:43:47 PM Sign Date: 01/11/2018 3:55:53 PM US ABDOMEN/ABDOMEN DOPPLER Observed: 01/07/2018 Status: F Source: [place] 11:30 AM [facility] REPOSITORY ORIGINAL US ABDOMEN/ABDOMEN DOPPLER CLINICAL INDICATION:ABDOMINAL PAIN, NAUSEA, WT LOSS, DECREASED APPETITE, DIARRHEA COMPARISON: CT 10/13/2017 TECHNIQUE: Eli scale, color doppler and spectral wave analysis was performed of the liver. FINDINGS: Elastography cannot be performed due to the amount of ascites. VASCULAR: SV: Patent, hepatopedal MPV: Patent, hepatopedal. Not dilated measuring 8-9 mm RPV: Patent, hepatopedal LPV: Patent, hepatopedal RHV: Patent MHV: Patent LHV: Patent NON-VASCULAR: LIVER: Diffusely coarse in echotexture. There is a questionably nodular contour. There is no definite focal mass. No extra or intrahepatic duct dilatation. COMMON DUCT: 4 mm, not dilated GALLBLADDER: A few subcentimeter shadowing stones are noted. There is also finding suggesting adenomyomatosis. No sonographic Cisneros's sign. ASCITES: Moderate amount throughout the abdomen. KIDNEYS: RIGHT: 9.6 cm. No hydronephrosis. LEFT: 9.0 cm. No hydronephrosis. SPLEEN: Nonenlarged measuring 10.5 x 3.9 x 3.6 cm. PANCREAS: Visualized portion unremarkable VISUALIZED IVC: Visualized portion patent VISUALIZED AORTA: Visualized portion is unremarkable IMPRESSION: 1. Patent portal, splenic, and hepatic veins. 2. Findings likely reflecting cirrhosis. Moderate abdominal ascites. 3. Cholelithiasis and likely adenomyomatosis. Interpreted By: Tray Storm MD Preliminary Report By: Tray Storm MD Electronically Signed By: Tray Storm MD Dictated Date: 01/07/2018 3:31:04 PM Prelim Date: 01/07/2018 3:31:04 PM Sign Date: 01/07/2018 3:36:54 PM US DRAINAGE PERITONEAL Observed: 01/03/2018 Status: F Source: [facility] 9:30 AM [facility] REPOSITORY ORIGINAL ULTRASOUND GUIDED PARACENTESIS CLINICAL STATEMENT: ascites SITE: RUQ FLUID REMOVED: 6000 cc FLUID COLOR: Serous, yellow DISPOSITION OF FLUID: Discarded CATHETER/NEEDLE: 10 cm 5 Fr centesis catheter needle The procedure, risks, limitations, and alternatives were discussed. All questions were answered. Written informed consent obtained. Accompanying paperwork was verified for accuracy. Directed history and physical exam performed prior to the procedure. Medication reconciliation was performed by nursing personnel. Procedure was performed using a cap, sterile gloves, a large sterile sheet, hand hygiene and hospital-approved cutaneous antisepsis. Ultrasound survey demonstrates large amount of ascites. 10 ml of 2% lidocaine was administered at the puncture site for local anesthesia. The centesis catheter needle was advanced into the fluid. After removal of the needle, the catheter was attached to vacuum bottles and removed once no additional fluid could be removed. COMPLICATIONS: None EBL: None PATIENT CONDITION: Stable, unchanged. IMPRESSION: 1. Successful ultrasound guided paracentesis. The procedure was performed by Teresa Sarabia PA-C. Interpreted By: April Craft MD Preliminary Report By: Teresa Sarabia PA-C Electronically Signed By: April Craft MD Dictated Date: 01/03/2018 12:39:49 PM Prelim Date: 01/03/2018 12:40:31 PM Sign Date: 01/03/2018 1:11:55 PM CBC Collected: 12/27/2017 Status: F Source: [facility] 4:05 PM [facility] REPOSITORY TYPE CODE TESTS RESULT OUT OF REFERENCE UNITS RANGE LAB WBC(LOINC) 4.50-10.80 10 3/mcL High WBC 17.60 LAB RBCCT(LOINC 4.10-5.30 10 6/mcL ) Low RBC 2.65 LAB HGB(LOINC) 12.0-16.0 G/dL Low Hgb 8.4 LAB HCT(LOINC) 34.0-46.0 % Low Hct 25.2 LAB MCV(LOINC) 80.0-99.0 fL MCV 95.2 LAB MCH(LOINC) 27.0-33.0 pg MCH 31.5 LAB MCHC(LOINC) 32.0-36.0 G/dL MCHC 33.1 LAB RDW(LOINC) 11.5-15.5 % RDW 15.1 LAB PLT(LOINC) 150-450 10 3/mcL Platelet 205 LAB MPV(LOINC) 6.6-10.5 fL MPV 9.0 Performed By: #### CBC, ADIFF, ANEU, AFPS, CMP, GFR, AAT, CERUL, EVELINA, VAMSI, SMUSC, HBSAG, HBSAB, HCV1, EBV, AHAVT, AHBCOT, PARKER, HBEAG, AHBE, HBVDNU, CMV #### [place] [address] .AUTO DIFF Collected: 12/27/2017 Status: F Source: [facility] 4:05 PM [facility] REPOSITORY TYPE CODE TESTS RESULT OUT OF REFERENCE UNITS RANGE LAB SILVANO(LOINC) 50.0-75.0 % Neutrophil % 65.7 LAB LYM(LOINC) 20.0-40.0 % Lymphocyte % 24.3 LAB MON(LOINC) 2.0-13.0 % Monocyte % 7.5 LAB EO(LOINC) 0.0-6.0 % Eosinophil % 1.7 LAB BAS(LOINC) 0.0-2.5 % Basophil % 0.8 LAB ABLYM(LOIN 0.90-4.32 10 3/mcL C) Lymphocyte, 4.30 Absolute LAB AMBER(LOINC 0.09-1.40 10 3/mcL ) Monocyte, 1.30 Absolute LAB AEOS(LOINC 0.00-0.65 10 3/mcL ) Eosinophil, 0.30 Absolute LAB ABAS(LOINC 0.00-0.27 10 3/mcL ) Basophil, 0.10 Absolute Performed By: #### CBC, ADIFF, ANEU, AFPS, CMP, GFR, AAT, CERUL, EVELINA, VAMSI, SMUSC, HBSAG, HBSAB, HCV1, EBV, AHAVT, AHBCOT, PARKER, HBEAG, AHBE, HBVDNU, CMV #### [place] [address] .NEUABS Collected: 12/27/2017 Status: F Source: [facility] [address] [place] [address] REPOSITORY TYPE CODE TESTS RESULT OUT OF REFERENCE UNITS RANGE LAB ANEU(LOINC) 2.25-8.10 10 3/mcL High Neutrophil, 11.50 Absolute Performed By: #### CBC, ADIFF, ANEU, AFPS, CMP, GFR, AAT, CERUL, EVELINA, VAMSI, SMUSC, HBSAG, HBSAB, HCV1, EBV, AHAVT, AHBCOT, PARKER, HBEAG, AHBE, HBVDNU, CMV #### [place] [address] AFPS Collected: 12/27/2017 Status: F Source: [facility] [address] [place] [address] REPOSITORY TYPE CODE TESTS RESULT OUT OF REFERENCE UNITS RANGE LAB AFPS(LOINC) 0.0-8.5 ng/mL AFP, Tumor 2.9 Marker Performed By: #### CBC, ADIFF, ANEU, AFPS, CMP, GFR, AAT, CERUL, EVELINA, VAMSI, SMUSC, HBSAG, HBSAB, HCV1, EBV, AHAVT, AHBCOT, PARKER, HBEAG, AHBE, HBVDNU, CMV #### [place] [address] CMP Collected: 12/27/2017 Status: F Source: [facility] [address] [place] [address] REPOSITORY TYPE CODE TESTS RESULT OUT OF REFERENCE UNITS RANGE LAB GLU(LOINC) 70-110 mg/dL Glucose Level 79 LAB NA(LOINC) 136-145 mEq/L Sodium Level 139 LAB K(LOINC) 3.5-5.0 mEq/L Low Potassium Level 3.4 LAB CL(LOINC) 98-110 mEq/L Chloride 109 LAB CO2(LOINC) 22-32 mEq/L Low CO2 15 LAB EBAL(LOINC 4.0-15.0 mEq/L ) Electrolyte Balance 15.0 LAB BUN(LOINC) 8.0-22.0 mg/dL BUN High 61.0 LAB CRE(LOINC) 0.50-1.20 mg/dL Creatinine High Lvl (s) 4.01 LAB BC(LOINC) 10.0-22.0 ratio BUN/Creatinine 15.2 Ratio LAB CA(LOINC) 8.4-10.1 mg/dL Low Calcium Lvl 7.7 LAB PROT(LOINC 6.0-8.5 G/dL ) Total Protein 6.9 LAB ALB(LOINC) 3.2-4.8 G/dL Low Albumin Level 2.4 LAB GLB(LOINC) 1.5-3.8 G/dL Globulin High 4.5 LAB AG(LOINC) 0.9-1.6 ratio Low A/G Ratio 0.5 LAB BILT(LOINC 0.2-1.2 mg/dL ) Bili Total 1.0 LAB AP(LOINC) 38-126 U/L Alk Phos 126 LAB AST(LOINC) 8-34 U/L AST/SGOT 31 LAB ALT(LOINC) 10-49 U/L ALT/SGPT 25 Performed By: #### CBC, ADIFF, ANEU, AFPS, CMP, GFR, AAT, CERUL, EVELINA, VAMSI, SMUSC, HBSAG, HBSAB, HCV1, EBV, AHAVT, AHBCOT, PARKER, HBEAG, AHBE, HBVDNU, CMV #### [place] [address] .GFR Collected: 12/27/2017 Status: F Source: [facility] 4:05 PM [facility] REPOSITORY TYPE CODE TESTS RESULT OUT OF REFERENCE UNITS RANGE LAB GFRAA(LOINC ml/min/1.73 ) sqm GFR 14 [place] Result Comment: GFR Population mean for , Non- Americans Ages 20-29 = 116 mL/min/1.73 sq.m. Ages 30-39 = 107 mL/min/1.73 sq.m. Ages 40-49 = 99 mL/min/1.73 sq.m. Ages 50-59 = 93 mL/min/1.73 sq.m. Ages 60-69 = 85 mL/min/1.73 sq.m. Ages 70+ = 75 mL/min/1.73 sq.m. Chronic Kidney Disease: Less than 60 mL/min/1.73 square meters End Stage Renal Disease: Less than 15 mL/min/1.73 square meters LAB GFRNO(LOINC) ml/min/1.73sqm GFR Non- 12 Result Comment: GFR Population mean for , Non- Americans Ages 20-29 = 116 mL/min/1.73 sq.m. Ages 30-39 = 107 mL/min/1.73 sq.m. Ages 40-49 = 99 mL/min/1.73 sq.m. Ages 50-59 = 93 mL/min/1.73 sq.m. Ages 60-69 = 85 mL/min/1.73 sq.m. Ages 70+ = 75 mL/min/1.73 sq.m. Chronic Kidney Disease: Less than 60 mL/min/1.73 square meters End Stage Renal Disease: Less than 15 mL/min/1.73 square meters Performed By: #### CBC, ADIFF, ANEU, AFPS, CMP, GFR, AAT, CERUL, EVELINA, VAMSI, SMUSC, HBSAG, HBSAB, HCV1, EBV, AHAVT, AHBCOT, PARKER, HBEAG, AHBE, HBVDNU, CMV #### [place] [address] AAT Collected: 12/27/2017 Status: F Source: [facility] [address] [place] [address] REPOSITORY TYPE CODE TESTS RESULT OUT OF REFERENCE UNITS RANGE LAB AAT(LOINC) 88-174 mg/dL Alpha 1 Antitrypsin 159 Performed By: #### CBC, ADIFF, ANEU, AFPS, CMP, GFR, AAT, CERUL, EVELINA, VAMSI, SMUSC, HBSAG, HBSAB, HCV1, EBV, AHAVT, AHBCOT, PARKER, HBEAG, AHBE, HBVDNU, CMV #### [address] [address] CERUL Collected: 12/27/2017 Status: F Source: [facility] [address] [place] [address] REPOSITORY TYPE CODE TESTS RESULT OUT OF REFERENCE UNITS RANGE LAB CERUL(LOIN 22.0-58.0 mg/dL C) Ceruloplasmin Low 14.1 Performed By: #### CBC, ADIFF, ANEU, AFPS, CMP, GFR, AAT, CERUL, EVELINA, VAMSI, SMUSC, HBSAG, HBSAB, HCV1, EBV, AHAVT, AHBCOT, PARKER, HBEAG, AHBE, HBVDNU, CMV #### [address] [address] EVELINA Collected: 12/27/2017 Status: F Source: [facility] 4:05 [facility] REPOSITORY TYPE CODE TESTS RESULT OUT OF RANGE REFERENCE UNITS LAB EVELINA(LOINC) Neg 40 EVELINA Neg 40 Performed By: #### CBC, ADIFF, ANEU, AFPS, CMP, GFR, AAT, CERUL, EVELINA, VAMSI, SMUSC, HBSAG, HBSAB, HCV1, EBV, AHAVT, AHBCOT, PARKER, HBEAG, AHBE, HBVDNU, CMV #### [address] [address] VAMSI Collected: 12/27/2017 Status: F Source: [facility] [address] [place] [address] REPOSITORY TYPE CODE TESTS RESULT OUT OF REFERENCE UNITS RANGE LAB VAMSI(LOINC Neg 20 ) Mitochondrial Ab Neg 20 Performed By: #### CBC, ADIFF, ANEU, AFPS, CMP, GFR, AAT, CERUL, EVELINA, VAMSI, SMUSC, HBSAG, HBSAB, HCV1, EBV, AHAVT, AHBCOT, PARKER, HBEAG, AHBE, HBVDNU, CMV #### [place] [id number] SMUSC Collected: 12/27/2017 Status: F Source: [facility] 4:05 [facility] REPOSITORY TYPE CODE TESTS RESULT OUT OF REFERENCE UNITS RANGE LAB SMUSC(LOINC Neg 20 ) Smooth Muscle Neg 20 Ab Performed By: #### CBC, ADIFF, ANEU, AFPS, CMP, GFR, AAT, CERUL, EVELINA, VAMSI, SMUSC, HBSAG, HBSAB, HCV1, EBV, AHAVT, AHBCOT, PARKER, HBEAG, AHBE, HBVDNU, CMV #### [address] [address] HBSAG Collected: 12/27/2017 Status: F Source: [facility] 4:05 [facility] REPOSITORY TYPE CODE TESTS RESULT OUT OF REFERENCE UNITS RANGE LAB HBSAG(LOINC Negative ) Hep B Negative Surf Ag Performed By: #### CBC, ADIFF, ANEU, AFPS, CMP, GFR, AAT, CERUL, EVELINA, VAMSI, SMUSC, HBSAG, HBSAB, HCV1, EBV, AHAVT, AHBCOT, PARKER, HBEAG, AHBE, HBVDNU, CMV #### [address] [address] HBSAB Collected: 12/27/2017 Status: F Source: [facility] 4:05 [facility] REPOSITORY TYPE CODE TESTS RESULT OUT OF RANGE REFERENCE UNITS LAB HBSAB(LOINC mIU/mL ) Hep B 0.0 Surf Ab Result Comment: Anti-HBs Interpretation: 0 to <5.0 mIU/mL Negative Patient is considered to be not immune to infection with HBV. >/= 5.0 and <12.0 mIU/mL Equivocal Unable to determine if anti-HBs is present at levels consistent with immunity. Patient's immune status should be further assessed by considering other clinical information or retesting another sample drawn at a later time. >/= 12.0 mIU/mL Positive Patient is considered to be immune to infection with HBV. It has not been determined what the clinical significance is for values greater than or equal to 12.0 mIU/mL, other than the individual is considered to be immune to HBV infection. Performed By: #### CBC, ADIFF, ANEU, AFPS, CMP, GFR, AAT, CERUL, EVELINA, VAMSI, SMUSC, HBSAG, HBSAB, HCV1, EBV, AHAVT, AHBCOT, PARKER, HBEAG, AHBE, HBVDNU, CMV #### [place] [address] HCV Collected: 12/27/2017 Status: F Source: [facility] [address] [place] [address] REPOSITORY TYPE CODE TESTS RESULT OUT OF REFERENCE UNITS RANGE LAB HCV(LOINC) Negative Negative Hep C Ab LAB HCV1(LOINC ) No serological Hep C evidence of Ab Int Hepatitis C infection, although levels of anti-HCV may be undetectable in early infection. Performed By: #### CBC, ADIFF, ANEU, AFPS, CMP, GFR, AAT, CERUL, EVELINA, VAMSI, SMUSC, HBSAG, HBSAB, HCV1, EBV, AHAVT, AHBCOT, PARKER, HBEAG, AHBE, HBVDNU, CMV #### [place] [address] EBV Collected: 12/27/2017 Status: F Source: [facility] [address] [place] [address] REPOSITORY TYPE CODE TESTS RESULT OUT OF RANGE REFERENCE UNITS LAB AEBVM(LOINC ) EBV IgM Neg Result Comment: INTERPRETATION OF EBV BY EIA (Effective 05/22/04): Negative No detectable EBV antibody. Result does not exclude EBV infection. An additional sample should be tested within 4-6 weeks if early infection is suspected. Positive IgM EBV IgM antibody detected. Equivocal Equivocal for antibodies to EBV. Repeat testing if still indicated. LAB AEBVG(LOINC) Negative Positive EBV IgG Result Comment: INTERPRETATION OF EBV BY EIA (Effective 05/22/04): Negative No detectable EBV antibody. Result does not exclude EBV infection. An additional sample should be tested within 4-6 weeks if early infection is suspected. Positive IgG EBV IgG antibody detected. Indicative of current or past infection. Equivocal Equivocal for antibodies to EBV. Repeat testing if still indicated. Performed By: #### CBC, ADIFF, ANEU, AFPS, CMP, GFR, AAT, CERUL, EVELINA, VAMSI, SMUSC, HBSAG, HBSAB, HCV1, EBV, AHAVT, AHBCOT, PARKER, HBEAG, AHBE, HBVDNU, CMV #### [address] [address] AHAVT Collected: 12/27/2017 Status: F Source: [facility] [address] [place] [address] REPOSITORY TYPE CODE TESTS RESULT OUT OF REFERENCE UNITS RANGE LAB AHAVT(LOIN NEGAT C) Hepatitis A Ab Negative Total Result Comment: Performed By: [facility] [employer] [address] [place] [address] Adjudication Specialist: Francine Casey M.D. CLIA#: [id number] Phone#: Performed By: #### CBC, ADIFF, ANEU, AFPS, CMP, GFR, AAT, CERUL, EVELINA, VAMSI, SMUSC, HBSAG, HBSAB, HCV1, EBV, AHAVT, AHBCOT, PARKER, HBEAG, AHBE, HBVDNU, CMV #### [address] [address] HBCAB Collected: 12/27/2017 Status: F Source: [facility] [address] [place] [address] REPOSITORY TYPE CODE TESTS RESULT OUT OF REFERENCE UNITS RANGE LAB HBCAB(LOINC NEGAT ) Hep B Negative Core Ab Result Comment: Performed By: [facility] [employer] [facility] [place] [id number] Adjudication Specialist: Francine Casey M.D. CLIA#: [id number] Phone#: Performed By: #### CBC, ADIFF, ANEU, AFPS, CMP, GFR, AAT, CERUL, EVELINA, VAMSI, SMUSC, HBSAG, HBSAB, HCV1, EBV, AHAVT, AHBCOT, PARKER, HBEAG, AHBE, HBVDNU, CMV #### [place] [id number] PARKER Collected: 12/27/2017 Status: F Source: [facility] 4:05 [facility] REPOSITORY TYPE CODE TESTS RESULT OUT OF REFERENCE UNITS RANGE LAB RET(LOINC) 0.30-1.20 mg/L Low Vitamin A Lvl 0.07 Result Comment: This test was developed and its performance characteristics determined by [facility]'s [facility] [place] ([facility]). It has not been cleared or approved by the FDA. -[facility] is regulated under CLIA as qualified to perform high-complexity testing. This test is used for clinical purposes. It should not be regarded as investigational or for research. Performed By: [facility] [employer] [address] [place] [address] Adjudication Specialist: Francine Casey M.D. CLIA#: [id number] Phone#: Performed By: #### CBC, ADIFF, ANEU, AFPS, CMP, GFR, AAT, CERUL, EVELINA, VAMSI, SMUSC, HBSAG, HBSAB, HCV1, EBV, AHAVT, AHBCOT, PARKER, HBEAG, AHBE, HBVDNU, CMV #### [place] [id number] HBEAG Collected: 12/27/2017 Status: F Source: [facility] 4:05 [facility] REPOSITORY TYPE CODE TESTS RESULT OUT OF REFERENCE UNITS RANGE LAB HBEAG(LOINC NEGAT ) Hep Be Ag Negative Result Comment: Performed By: [facility] [employer] [address] [place] [address] Adjudication Specialist: Francine Casey M.D. CLIA#: [id number] Phone#: Performed By: #### CBC, ADIFF, ANEU, AFPS, CMP, GFR, AAT, CERUL, EVELINA, VAMSI, SMUSC, HBSAG, HBSAB, HCV1, EBV, AHAVT, AHBCOT, PARKER, HBEAG, AHBE, HBVDNU, CMV #### [address] [address] HBEAB Collected: 12/27/2017 Status: F Source: [facility] 4:05 [facility] REPOSITORY TYPE CODE TESTS RESULT OUT OF REFERENCE UNITS RANGE LAB HBEAB(LOINC ) Hep Be Ab Negative Result Comment: Reference range: Negative (NOTE) Performed by [facility], [address] [place] [id number] [email or web address], Sherwin Adams MD, Lab. Director Performed By: #### CBC, ADIFF, ANEU, AFPS, CMP, GFR, AAT, CERUL, EVELINA, VAMSI, SMUSC, HBSAG, HBSAB, HCV1, EBV, AHAVT, AHBCOT, PARKER, HBEAG, AHBE, HBVDNU, CMV #### [place] [address] HBDNA Collected: 12/27/2017 Status: F Source: [facility] [address] [place] [address] REPOSITORY TYPE CODE TESTS RESULT OUT OF REFERENCE UNITS RANGE LAB HBVRES(LOIN C) HBV DNA HBV DNA not Ultra detected by PCR. Result Comment: Reference Range: Negative for HBVDNA The linear range of this assay is 20 to 170,000,000 IU/ml. Performed By: [facility] [address] [place] [address] Adjudication Specialist: Jensen Jimenez#: [id number] Phone#: Performed By: #### CBC, ADIFF, ANEU, AFPS, CMP, GFR, AAT, CERUL, EVELINA, VAMSI, SMUSC, HBSAG, HBSAB, HCV1, EBV, AHAVT, AHBCOT, PARKER, HBEAG, AHBE, HBVDNU, CMV #### [address] [address] CMV Collected: 12/27/2017 Status: F Source: [facility] 4:05 [facility] REPOSITORY TYPE CODE TESTS RESULT OUT OF REFERENCE UNITS RANGE LAB ACMVM(LOIN Negative C) CMV IgM Negative Antibody Result Comment: INTERPRETATION OF CMV BY EIA (Effective 07/02/04): Negative Negative for CMV antibodies. Positive Positive for CMV antibodies. Equivocal Equivocal for CMV antibodies. Repeat testing in 14 days is suggested. LAB ACMVG(LOINC) Negative CMV IgG Antibody Negative Result Comment: INTERPRETATION OF CMV BY EIA (Effective 07/02/04): Negative Negative for CMV antibodies. Positive Positive for CMV antibodies. Equivocal Equivocal for CMV antibodies. Repeat testing in 14 days is suggested. Performed By: #### CBC, ADIFF, ANEU, AFPS, CMP, GFR, AAT, CERUL, EVELINA, VAMSI, SMUSC, HBSAG, HBSAB, HCV1, EBV, AHAVT, AHBCOT, PARKER, HBEAG, AHBE, HBVDNU, CMV #### [place] [address] AMM Collected: 12/27/2017 Status: F Source: [facility] 4:05 PM [facility] REPOSITORY TYPE CODE TESTS RESULT OUT OF REFERENCE UNITS RANGE LAB AMM(LOINC) 25-35 mcmol/l High Ammonia 99 Performed By: #### AMM #### [place] [address] IGM Collected: 12/27/2017 Status: F Source: [facility] 4:05 PM [facility] [place] REPOSITORY TYPE CODE TESTS RESULT OUT OF RANGE REFERENCE UNITS LAB IGM(LOINC) 46-304 mg/dL IgM 72 Performed By: #### IGM #### [place] [address] MISC Collected: 12/27/2017 Status: F Source: [facility] 4:05 PM [facility] [place] REPOSITORY Order Comment: HBV DNA Qual TYPE CODE TESTS RESULT OUT OF REFERENCE UNITS RANGE LAB MISC(LOINC) Misc. See Comments Send Out Result Comment: Complete reference lab report scanned to EMR. Performed By: #### MISC #### [place] [address] XR CHEST 2 VIEWS Observed: 12/27/2017 Status: F Source: [facility] 10:24 AM [facility] [place] REPOSITORY ORIGINAL XR CHEST 2 VIEWS CLINICAL STATEMENT: ANEMIA, COUGH. Chest pain this morning. Relates lung drainage on the RIGHT side. History of cirrhosis with recurrent paracentesis. COMPARISON: Portable chest radiograph from 10/14/2027 FINDINGS: The lungs are clear with no consolidation, interstitial thickening, or pleural effusions. There is no pneumothorax. The cardiomediastinal silhouette is within normal limits. The aorta is calcified. There are mild degenerative changes of thoracic spine. IMPRESSION: No acute cardiopulmonary finding is identified. I have personally reviewed the images of this examination and agree with the resident's findings and interpretation. Interpreted By: April Craft MD Preliminary Report By: Rocael Bonilla MD Electronically Signed By: April Craft MD Dictated Date: 12/27/2017 1:58:18 PM Prelim Date: 12/27/2017 2:22:36 PM Sign Date: 12/27/2017 2:30:58 PM US DRAINAGE PERITONEAL Observed: 12/27/2017 Status: F Source: [facility] 8:00 AM [facility] [place] REPOSITORY ORIGINAL ULTRASOUND GUIDED PARACENTESIS: Therapeutic CLINICAL STATEMENT: Cirrhosis/ascites DRAINAGE/PUNCTURE SITE: RIGHT upper abdomen QUANTITY OF FLUID REMOVED: 6000 mL CHARACTERISTICS OF FLUID: Yellow serous DISPOSITION OF FLUID: Discarded The paracentesis was performed in the usual fashion. The procedure was successful with minimal patient discomfort. No post-procedural complications were identified. IMPRESSION: Successful ultrasound-guided paracentesis. The procedure was performed by Catalina Soto, Physician Fast Food Cashier. I concur with the contents of the report. Interpreted By: Shant Tucker MD Preliminary Report By: Catalina Soto OR Electronically Signed By: Shant Tucker MD Dictated Date: 12/27/2017 11:54:23 AM Prelim Date: 12/27/2017 11:54:39 AM Sign Date: 12/27/2017 12:01:45 PM Observed: 12/18/2017 Status: F Source: [facility] 8:25 AM [facility] [place] REPOSITORY . MICRO - Microbiology PROCEDURE: Urine Culture [*1] SOURCE: Urine, Clean Catch BODY SITE: COLLECTED DATE/TIME: 12/18/2017 08:25 EDT RECEIVED DATE/TIME: 12/18/2017 08:29 EDT START DATE/TIME: 12/18/2017 08:29 EDT FREE TEXT SOURCE: FINAL REPORTS Final Report [] Verified Date/Time/Personnel: 12/19/2017 13:28 EDT 40,000 organisms per mL Mixed without predominant isolate(s). Sensitivity Testing not indicated. Probably contamination. Repeat culture suggested. Performing Locations *1: This test was performed at: [facility], [address] [place] [address], [facility] , [facility] Performed By: #### CUR #### [place] [address] BMP Collected: 12/18/2017 Status: F Source: [facility] 3:53 AM [facility] [place] REPOSITORY TYPE CODE TESTS RESULT OUT OF REFERENCE UNITS RANGE LAB GLU(LOINC) 70-110 mg/dL Glucose Level 91 LAB NA(LOINC) 136-145 mEq/L Sodium Level 138 LAB K(LOINC) 3.5-5.0 mEq/L Potassium Level 4.2 LAB CL(LOINC) 98-110 mEq/L Chloride 110 LAB CO2(LOINC) 22-32 mEq/L Low CO2 16 LAB EBAL(LOINC 4.0-15.0 mEq/L ) Electrolyte Balance 12.0 LAB BUN(LOINC) 8.0-22.0 mg/dL BUN High 63.0 LAB CRE(LOINC) 0.50-1.20 mg/dL Creatinine High Lvl (s) 3.99 LAB BC(LOINC) 10.0-22.0 ratio BUN/Creatinine 15.8 Ratio LAB CA(LOINC) 8.4-10.1 mg/dL Low Calcium Lvl 7.2 Performed By: #### BMP, GFR #### [place] [address] .GFR Collected: 12/18/2017 Status: F Source: [facility] 3:53 AM [facility] [place] REPOSITORY TYPE CODE TESTS RESULT OUT OF REFERENCE UNITS RANGE LAB GFRAA(LOINC ml/min/1.73 ) sqm GFR 14 [place] Result Comment: GFR Population mean for , Non- Americans Ages 20-29 = 116 mL/min/1.73 sq.m. Ages 30-39 = 107 mL/min/1.73 sq.m. Ages 40-49 = 99 mL/min/1.73 sq.m. Ages 50-59 = 93 mL/min/1.73 sq.m. Ages 60-69 = 85 mL/min/1.73 sq.m. Ages 70+ = 75 mL/min/1.73 sq.m. Chronic Kidney Disease: Less than 60 mL/min/1.73 square meters End Stage Renal Disease: Less than 15 mL/min/1.73 square meters LAB GFRNO(LOINC) ml/min/1.73sqm GFR Non- 12 Result Comment: GFR Population mean for , Non- Americans Ages 20-29 = 116 mL/min/1.73 sq.m. Ages 30-39 = 107 mL/min/1.73 sq.m. Ages 40-49 = 99 mL/min/1.73 sq.m. Ages 50-59 = 93 mL/min/1.73 sq.m. Ages 60-69 = 85 mL/min/1.73 sq.m. Ages 70+ = 75 mL/min/1.73 sq.m. Chronic Kidney Disease: Less than 60 mL/min/1.73 square meters End Stage Renal Disease: Less than 15 mL/min/1.73 square meters Performed By: #### BMP, GFR #### [address] [address] CBC Collected: 12/17/2017 Status: F Source: [facility] 7:09 AM [facility] REPOSITORY TYPE CODE TESTS RESULT OUT OF REFERENCE UNITS RANGE LAB WBC(LOINC) 4.50-10.80 10 3/mcL High WBC 16.10 LAB RBCCT(LOINC 4.10-5.30 10 6/mcL ) Low RBC 3.27 LAB HGB(LOINC) 12.0-16.0 G/dL Low Hgb 10.4 LAB HCT(LOINC) 34.0-46.0 % Low Hct 31.5 LAB MCV(LOINC) 80.0-99.0 fL MCV 96.5 LAB MCH(LOINC) 27.0-33.0 pg MCH 31.8 LAB MCHC(LOINC) 32.0-36.0 G/dL MCHC 33.0 LAB RDW(LOINC) 11.5-15.5 % RDW 15.1 LAB PLT(LOINC) 150-450 10 3/mcL Platelet 301 LAB MPV(LOINC) 6.6-10.5 fL MPV 8.5 Performed By: #### CBC, ADIFF, ANEU, LIP, GFR, CMP #### [address] [address] .AUTO DIFF Collected: 12/17/2017 Status: F Source: [facility] 7:09 AM [facility] [place] REPOSITORY TYPE CODE TESTS RESULT OUT OF REFERENCE UNITS RANGE LAB SILVANO(LOINC) 50.0-75.0 % Neutrophil % 63.1 LAB LYM(LOINC) 20.0-40.0 % Lymphocyte % 27.6 LAB MON(LOINC) 2.0-13.0 % Monocyte % 6.5 LAB EO(LOINC) 0.0-6.0 % Eosinophil % 2.2 LAB BAS(LOINC) 0.0-2.5 % Basophil % 0.6 LAB ABLYM(LOIN 0.90-4.32 10 3/mcL C) High Lymphocyte, 4.50 Absolute LAB AMBER(LOINC 0.09-1.40 10 3/mcL ) Monocyte, 1.00 Absolute LAB AEOS(LOINC 0.00-0.65 10 3/mcL ) Eosinophil, 0.40 Absolute LAB ABAS(LOINC 0.00-0.27 10 3/mcL ) Basophil, 0.10 Absolute Performed By: #### CBC, ADIFF, ANEU, LIP, GFR, CMP #### [place] [address] .NEUABS Collected: 12/17/2017 Status: F Source: [facility] 7:09 AM [facility] [place] REPOSITORY TYPE CODE TESTS RESULT OUT OF REFERENCE UNITS RANGE LAB ANEU(LOINC) 2.25-8.10 10 3/mcL High Neutrophil, 10.20 Absolute Performed By: #### CBC, ADIFF, ANEU, LIP, GFR, CMP #### [place] [address] LIP Collected: 12/17/2017 Status: F Source: [facility] 7:09 AM [facility] [place] REPOSITORY TYPE CODE TESTS RESULT OUT OF REFERENCE UNITS RANGE LAB LIP(LOINC) 73-393 U/L Lipase Level 367 Performed By: #### CBC, ADIFF, ANEU, LIP, GFR, CMP #### [place] [address] .GFR Collected: 12/17/2017 Status: F Source: [facility] 7:09 AM [facility] [place] REPOSITORY TYPE CODE TESTS RESULT OUT OF REFERENCE UNITS RANGE LAB GFRAA(LOINC ml/min/1.73 ) sqm GFR 11 [place] Result Comment: GFR Population mean for , Non- Americans Ages 20-29 = 116 mL/min/1.73 sq.m. Ages 30-39 = 107 mL/min/1.73 sq.m. Ages 40-49 = 99 mL/min/1.73 sq.m. Ages 50-59 = 93 mL/min/1.73 sq.m. Ages 60-69 = 85 mL/min/1.73 sq.m. Ages 70+ = 75 mL/min/1.73 sq.m. Chronic Kidney Disease: Less than 60 mL/min/1.73 square meters End Stage Renal Disease: Less than 15 mL/min/1.73 square meters LAB GFRNO(LOINC) ml/min/1.73sqm GFR Non- 9 Result Comment: GFR Population mean for , Non- Americans Ages 20-29 = 116 mL/min/1.73 sq.m. Ages 30-39 = 107 mL/min/1.73 sq.m. Ages 40-49 = 99 mL/min/1.73 sq.m. Ages 50-59 = 93 mL/min/1.73 sq.m. Ages 60-69 = 85 mL/min/1.73 sq.m. Ages 70+ = 75 mL/min/1.73 sq.m. Chronic Kidney Disease: Less than 60 mL/min/1.73 square meters End Stage Renal Disease: Less than 15 mL/min/1.73 square meters Performed By: #### CBC, ADIFF, ANEU, LIP, GFR, CMP #### [place] [address] CMP Collected: 12/17/2017 Status: F Source: [facility] 7:09 AM [facility] REPOSITORY TYPE CODE TESTS RESULT OUT OF REFERENCE UNITS RANGE LAB GLU(LOINC) 70-110 mg/dL Glucose High Level 113 LAB NA(LOINC) 136-145 mEq/L Sodium Level 136 LAB K(LOINC) 3.5-5.0 mEq/L Potassium Level 3.9 LAB CL(LOINC) 98-110 mEq/L Chloride 105 LAB CO2(LOINC) 22-32 mEq/L Low CO2 18 LAB EBAL(LOINC 4.0-15.0 mEq/L ) Electrolyte Balance 13.0 LAB BUN(LOINC) 8.0-22.0 mg/dL BUN High 66.0 LAB CRE(LOINC) 0.50-1.20 mg/dL Creatinine High Lvl (s) 4.78 LAB BC(LOINC) 10.0-22.0 ratio BUN/Creatinine 13.8 Ratio LAB CA(LOINC) 8.4-10.1 mg/dL Low Calcium Lvl 7.7 LAB PROT(LOINC 6.0-8.5 G/dL ) Total Protein 6.6 LAB ALB(LOINC) 3.2-4.8 G/dL Low Albumin Level 1.2 LAB GLB(LOINC) 1.5-3.8 G/dL Globulin High 5.4 LAB AG(LOINC) 0.9-1.6 ratio Low A/G Ratio 0.2 LAB BILT(LOINC 0.2-1.2 mg/dL ) Bili Total 0.9 LAB AP(LOINC) 38-126 U/L Alk Phos High 147 LAB AST(LOINC) 8-34 U/L AST/SGOT High 37 LAB ALT(LOINC) 10-49 U/L ALT/SGPT 27 Performed By: #### CBC, ADIFF, ANEU, LIP, GFR, CMP #### [place] [address] US DRAINAGE PERITONEAL Observed: 12/09/2017 Status: F Source: [facility] 3:30 PM [facility] REPOSITORY ORIGINAL ULTRASOUND GUIDED PARACENTESIS CLINICAL STATEMENT: ascites SITE: RUQ FLUID REMOVED: 7600 cc FLUID COLOR: Yellow, cloudy DISPOSITION OF FLUID: Discarded CATHETER/NEEDLE: 10 cm 5 Fr centesis catheter needle The procedure, risks, limitations, and alternatives were discussed. All questions were answered. Written informed consent obtained. Accompanying paperwork was verified for accuracy. Directed history and physical exam performed prior to the procedure. Medication reconciliation was performed by nursing personnel. Procedure was performed using a cap, sterile gloves, a large sterile sheet, hand hygiene and hospital-approved cutaneous antisepsis. Ultrasound survey demonstrates large amount of ascites. 6 ml of 2% lidocaine was administered at the puncture site for local anesthesia. The centesis catheter needle was advanced into the fluid. After removal of the needle, the catheter was attached to vacuum bottles and removed once no additional fluid could be removed. COMPLICATIONS: None EBL: None PATIENT CONDITION: Stable, unchanged. IMPRESSION: 1. Successful ultrasound guided paracentesis. The procedure was performed by Teresa Sarabia PA-C. I concur with the findings of this report. Interpreted By: Sammy Bowen MD Preliminary Report By: Teresa Sarabia PA-C Electronically Signed By: Sammy Bowen MD Dictated Date: 12/09/2017 4:59:13 PM Prelim Date: 12/09/2017 5:01:52 PM Sign Date: 12/09/2017 5:12:36 PM LIP Collected: 12/09/2017 Status: F Source: [facility] 9:23 AM [facility] [place] REPOSITORY TYPE CODE TESTS RESULT OUT OF REFERENCE UNITS RANGE LAB LIP(LOINC) 73-393 U/L Lipase Level 263 Performed By: #### CBC, ADIFF, ANEU, PRO, LIP, GFR, CMP #### [place] [address] .GFR Collected: 12/09/2017 Status: F Source: [facility] 9:23 AM [facility] [place] REPOSITORY TYPE CODE TESTS RESULT OUT OF REFERENCE UNITS RANGE LAB GFRAA(LOINC ml/min/1.73 ) sqm GFR 32 [place] Result Comment: GFR Population mean for , Non- Americans Ages 20-29 = 116 mL/min/1.73 sq.m. Ages 30-39 = 107 mL/min/1.73 sq.m. Ages 40-49 = 99 mL/min/1.73 sq.m. Ages 50-59 = 93 mL/min/1.73 sq.m. Ages 60-69 = 85 mL/min/1.73 sq.m. Ages 70+ = 75 mL/min/1.73 sq.m. Chronic Kidney Disease: Less than 60 mL/min/1.73 square meters End Stage Renal Disease: Less than 15 mL/min/1.73 square meters LAB GFRNO(LOINC) ml/min/1.73sqm GFR Non- 26 Result Comment: GFR Population mean for , Non- Americans Ages 20-29 = 116 mL/min/1.73 sq.m. Ages 30-39 = 107 mL/min/1.73 sq.m. Ages 40-49 = 99 mL/min/1.73 sq.m. Ages 50-59 = 93 mL/min/1.73 sq.m. Ages 60-69 = 85 mL/min/1.73 sq.m. Ages 70+ = 75 mL/min/1.73 sq.m. Chronic Kidney Disease: Less than 60 mL/min/1.73 square meters End Stage Renal Disease: Less than 15 mL/min/1.73 square meters Performed By: #### CBC, ADIFF, ANEU, PRO, LIP, GFR, CMP #### [facility] [address] [place] [address] CMP Collected: 12/09/2017 Status: F Source: [facility] 9:23 AM [facility] REPOSITORY Order Comment: specimen hemolyzed please recollect TYPE CODE TESTS RESULT OUT OF REFERENCE UNITS RANGE LAB GLU(LOINC) 70-110 mg/dL Glucose Level 107 LAB NA(LOINC) 136-145 mEq/L Low Sodium Level 134 LAB K(LOINC) 3.5-5.0 mEq/L Potassium Level 3.9 Result Comment: Specimen slightly hemolyzed. Results may be falsely elevated. LAB CL(LOINC) 98-110 mEq/L Chloride 103 LAB CO2(LOINC) 22-32 mEq/L CO2 Low 20 LAB EBAL(LOINC) 4.0-15.0 mEq/L Electrolyte Balance 11.0 LAB BUN(LOINC) 8.0-22.0 mg/dL BUN High 30.0 LAB CRE(LOINC) 0.50-1.20 mg/dL Creatinine High Lvl (s) 1.97 LAB BC(LOINC) 10.0-22.0 ratio BUN/Creatinine Ratio 15.2 LAB CA(LOINC) 8.4-10.1 mg/dL Calcium Lvl Low 8.0 LAB PROT(LOINC) 6.0-8.5 G/dL Total Protein 7.0 LAB ALB(LOINC) 3.2-4.8 G/dL Albumin Low Level 1.3 LAB GLB(LOINC) 1.5-3.8 G/dL Globulin High 5.7 LAB AG(LOINC) 0.9-1.6 ratio A/G Ratio Low 0.2 LAB BILT(LOINC) 0.2-1.2 mg/dL Bili Total 1.1 LAB AP(LOINC) 38-126 U/L Alk Phos High 154 LAB AST(LOINC) 8-34 U/L AST/SGOT High 50 Result Comment: Specimen slightly hemolyzed. Results may be falsely elevated. LAB ALT(LOINC) 10-49 U/L ALT/SGPT 29 Performed By: #### CBC, ADIFF, ANEU, PRO, LIP, GFR, CMP #### [address] [address] CBC Collected: 12/09/2017 Status: F Source: [facility] 9:01 [facility] [place] REPOSITORY TYPE CODE TESTS RESULT OUT OF REFERENCE UNITS RANGE LAB WBC(LOINC) 4.50-10.80 10 3/mcL High WBC 16.50 LAB RBCCT(LOINC 4.10-5.30 10 6/mcL ) Low RBC 3.29 LAB HGB(LOINC) 12.0-16.0 G/dL Low Hgb 10.6 LAB HCT(LOINC) 34.0-46.0 % Low Hct 32.3 LAB MCV(LOINC) 80.0-99.0 fL MCV 98.2 LAB MCH(LOINC) 27.0-33.0 pg MCH 32.3 LAB MCHC(LOINC) 32.0-36.0 G/dL MCHC 32.9 LAB RDW(LOINC) 11.5-15.5 % RDW 14.7 LAB PLT(LOINC) 150-450 10 3/mcL Platelet 282 LAB MPV(LOINC) 6.6-10.5 fL MPV 8.7 Performed By: #### CBC, ADIFF, ANEU, PRO, LIP, GFR, CMP #### [address] [address] .AUTO DIFF Collected: 12/09/2017 Status: F Source: [facility] 9:01 AM [facility] [place] REPOSITORY TYPE CODE TESTS RESULT OUT OF REFERENCE UNITS RANGE LAB SILVANO(LOINC) 50.0-75.0 % Neutrophil % 68.6 LAB LYM(LOINC) 20.0-40.0 % Lymphocyte % 21.7 LAB MON(LOINC) 2.0-13.0 % Monocyte % 7.2 LAB EO(LOINC) 0.0-6.0 % Eosinophil % 1.5 LAB BAS(LOINC) 0.0-2.5 % Basophil % 1.0 LAB ABLYM(LOIN 0.90-4.32 10 3/mcL C) Lymphocyte, 3.60 Absolute LAB AMBER(LOINC 0.09-1.40 10 3/mcL ) Monocyte, 1.20 Absolute LAB AEOS(LOINC 0.00-0.65 10 3/mcL ) Eosinophil, 0.20 Absolute LAB ABAS(LOINC 0.00-0.27 10 3/mcL ) Basophil, 0.20 Absolute Performed By: #### CBC, ADIFF, ANEU, PRO, LIP, GFR, CMP #### [place] [id number] .NEUABS Collected: 12/09/2017 Status: F Source: [facility] BAR [place] 9:01 AM [facility] [place] REPOSITORY TYPE CODE TESTS RESULT OUT OF REFERENCE UNITS RANGE LAB ANEU(LOINC) 2.25-8.10 10 3/mcL High Neutrophil, 11.30 Absolute Performed By: #### CBC, ADIFF, ANEU, PRO, LIP, GFR, CMP #### [place] [id number] PRO Collected: 12/09/2017 Status: F Source: [facility] BAR [place] 9:01 AM [facility] [place] REPOSITORY TYPE CODE TESTS RESULT OUT OF REFERENCE UNITS RANGE LAB PT(LOINC) 9.0-14.5 seconds High Protime 17.3 Result Comment: Effective 11/29/07, Protime results may be affected by some antibiotics (i.e. Ciprofloxacin, Azithromycin, Bactrim) which may potentiate the action of oral anticoagulants, with further increases in Protime/INR. LAB INR(LOINC) ratio PT International Ratio 1.5 Result Comment: The [employer] (CHEST, 1992, 102:312S-25S) recommended therapeutic range for oral anticoagulant therapy is: LOW RISK: Prophylaxis of venous thrombosis INR: 2.0-3.0 Treatment of pulmonary embolism 2.0-3.0 Prevention of systemic embolism 2.0-3.0 HIGH RISK: Mechanical prosthetic valves 2.5-3.5 Performed By: #### CBC, ADIFF, ANEU, PRO, LIP, GFR, CMP #### [place] [id number] [place] [address] US DRAINAGE PERITONEAL Observed: 12/03/2017 Status: F Source: [facility] 8:30 AM [facility] REPOSITORY ORIGINAL ULTRASOUND GUIDED PARACENTESIS: Therapeutic CLINICAL STATEMENT: Ascites DRAINAGE/PUNCTURE SITE: RIGHT upper abdomen QUANTITY OF FLUID REMOVED: 9800 mL CHARACTERISTICS OF FLUID: Cloudy yellow serous DISPOSITION OF FLUID: Discarded The paracentesis was performed in the usual fashion. The procedure was successful with minimal patient discomfort. No post-procedural complications were identified. IMPRESSION: Successful ultrasound-guided paracentesis. The procedure was performed by Catalina Soto Physician Fast Food Cashier. I concur with the contents of the report. Interpreted By: Tray Storm MD Preliminary Report By: Catalina Soto Electronically Signed By: Tray Storm MD Dictated Date: 12/03/2017 3:56:48 PM Prelim Date: 12/03/2017 3:57:05 PM Sign Date: 12/03/2017 6:19:57 PM US DRAINAGE PERITONEAL Observed: 11/19/2017 Status: F Source: [facility] 11:00 AM [facility] [place] REPOSITORY ORIGINAL ULTRASOUND GUIDED PARACENTESIS: Therapeutic CLINICAL STATEMENT: Ascites DRAINAGE/PUNCTURE SITE: RIGHT upper abdomen QUANTITY OF FLUID REMOVED: 9300 mL CHARACTERISTICS OF FLUID: Yellow serous DISPOSITION OF FLUID: Discarded The paracentesis was performed in the usual fashion. The procedure was successful with minimal patient discomfort. No post-procedural complications were identified. IMPRESSION: Successful ultrasound-guided paracentesis. The procedure was performed by Catalina Soto Physician Fast Food Cashier. I concur with the contents of the report. Interpreted By: Davidson Mujica MD Preliminary Report By: Catalina Soto Electronically Signed By: Davidson Mujica MD Dictated Date: 11/19/2017 2:03:35 PM Prelim Date: 11/19/2017 2:03:47 PM Sign Date: 11/19/2017 2:09:01 PM US DRAINAGE PERITONEAL Observed: 11/01/2017 Status: F Source: [facility] 9:30 AM [facility] [place] REPOSITORY ORIGINAL ULTRASOUND GUIDED PARACENTESIS CLINICAL STATEMENT: LIVER CIRRHOSIS ASCITES SITE: RUQ FLUID REMOVED: 7650 cc FLUID COLOR: Serous, yellow DISPOSITION OF FLUID: Discarded CATHETER/NEEDLE: 10 cm 5 Fr centesis catheter needle The procedure, risks, limitations, and alternatives were discussed. All questions were answered. Written informed consent obtained. Accompanying paperwork was verified for accuracy. Directed history and physical exam performed prior to the procedure. Medication reconciliation was performed by nursing personnel. Procedure was performed using a cap, sterile gloves, a small sterile sheet, hand hygiene and hospital-approved cutaneous antisepsis. Ultrasound survey demonstrates large amount of ascites. 9 ml of 2% lidocaine was administered at the puncture site for local anesthesia. The centesis catheter needle was advanced into the fluid. After removal of the needle, the catheter was attached to vacuum bottles and removed once no additional fluid could be removed. COMPLICATIONS: None EBL: None PATIENT CONDITION: Stable, unchanged. IMPRESSION: 1. Successful ultrasound guided paracentesis. The procedure was performed by Teresa Sarabia PA-C. Interpreted By: April Craft MD Preliminary Report By: Teresa Sarabia PA-C Electronically Signed By: April Craft MD Dictated Date: 11/01/2017 4:22:37 PM Prelim Date: 11/01/2017 4:23:31 PM Sign Date: 11/01/2017 4:45:23 PM BMP Collected: 10/16/2017 Status: F Source: [facility] 6:25 AM [facility] [place] REPOSITORY TYPE CODE TESTS RESULT OUT OF REFERENCE UNITS RANGE LAB GLU(LOINC) 70-110 mg/dL Glucose Level 86 LAB NA(LOINC) 136-145 mEq/L Sodium Level 139 LAB K(LOINC) 3.5-5.0 mEq/L Potassium Level 4.7 LAB CL(LOINC) 98-110 mEq/L Chloride 98 LAB CO2(LOINC) 22-32 mEq/L CO2 High 34 LAB EBAL(LOINC 4.0-15.0 mEq/L ) Electrolyte Balance 7.0 LAB BUN(LOINC) 8.0-22.0 mg/dL BUN 11.0 LAB CRE(LOINC) 0.50-1.20 mg/dL Creatinine High Lvl (s) 1.50 LAB BC(LOINC) 10.0-22.0 ratio Low BUN/Creatinine 7.3 Ratio LAB CA(LOINC) 8.4-10.1 mg/dL Low Calcium Lvl 7.9 Performed By: #### BMP, GFR #### [place] [address] .GFR Collected: 10/16/2017 Status: F Source: [facility] 6:25 AM [facility] [place] REPOSITORY TYPE CODE TESTS RESULT OUT OF REFERENCE UNITS RANGE LAB GFRAA(LOINC ml/min/1.73 ) sqm GFR 44 [place] Result Comment: GFR Population mean for , Non- Americans Ages 20-29 = 116 mL/min/1.73 sq.m. Ages 30-39 = 107 mL/min/1.73 sq.m. Ages 40-49 = 99 mL/min/1.73 sq.m. Ages 50-59 = 93 mL/min/1.73 sq.m. Ages 60-69 = 85 mL/min/1.73 sq.m. Ages 70+ = 75 mL/min/1.73 sq.m. Chronic Kidney Disease: Less than 60 mL/min/1.73 square meters End Stage Renal Disease: Less than 15 mL/min/1.73 square meters LAB GFRNO(LOINC) ml/min/1.73sqm GFR Non- 36 Result Comment: GFR Population mean for , Non- Americans Ages 20-29 = 116 mL/min/1.73 sq.m. Ages 30-39 = 107 mL/min/1.73 sq.m. Ages 40-49 = 99 mL/min/1.73 sq.m. Ages 50-59 = 93 mL/min/1.73 sq.m. Ages 60-69 = 85 mL/min/1.73 sq.m. Ages 70+ = 75 mL/min/1.73 sq.m. Chronic Kidney Disease: Less than 60 mL/min/1.73 square meters End Stage Renal Disease: Less than 15 mL/min/1.73 square meters Performed By: #### BMP, GFR #### [address] DRAINAGE PERITONEAL Observed: 10/14/2017 Status: F Source: [facility] 1:00 PM [facility] REPOSITORY ORIGINAL ULTRASOUND GUIDED PARACENTESIS: Diagnostic CLINICAL STATEMENT: Ascites DRAINAGE/PUNCTURE SITE: Right upper abdomen QUANTITY OF FLUID REMOVED: 7550 mL CHARACTERISTICS OF FLUID: Yellow serous DISPOSITION OF FLUID: Sent to lab The paracentesis was performed in the usual fashion. The procedure was successful with minimal patient discomfort. No post-procedural complications were identified. IMPRESSION: Successful ultrasound-guided paracentesis. The procedure was performed by Catalina Soto, Physician Fast Food Cashier. I concur with the contents of the report. Interpreted By: Sammy Bowen MD Preliminary Report By: Catalina Soto PA Electronically Signed By: Sammy Bowen MD Dictated Date: 10/14/2017 3:06:14 PM Prelim Date: 10/14/2017 3:06:26 PM Sign Date: 10/14/2017 5:47:35 PM HEMOC Collected: 10/14/2017 Status: F Source: [facility] 11:36 AM [facility] REPOSITORY TYPE CODE TESTS RESULT OUT OF RANGE REFERENCE UNITS LAB C282Y(LOINC ) C282Y Normal Locus Result Comment: Performed By: [place] [address] Adjudication Specialist: Francine Casey M.D. CLIA#: [id number] Phone#: LAB [id number]([facility]) H63D Locus Normal Result Comment: Performed By: [place] [address] Adjudication Specialist: Francine Casey M.D. CLIA#: [id number] Phone#: LAB S65C([facility]) S65C Locus Normal Result Comment: Performed By: [place] [address] Adjudication Specialist: Francine Casey M.D. CLIA#: [id number] Phone#: LAB HMINT(LOINC) Hemochromatosis The DNA Interpretation sample is negative for the C282Y, H63D, and S65C mutations of the HFE Result Comment: gene. Mutations at these loci are commonly associated with hereditary hemochromatosis (HH). Approximately 13% of clinically affected individuals may have this negative result, suggesting other etiologies for hereditary hemochromatosis. Patient DNA is assayed for C282Y, H63D and S65C point mutations in the HFE gene by multiplex polymerase chain reaction (PCR) followed by melting curve analysis of hybridized fluorescent probes. This test was developed and its performance characteristics determined by [facility]'s [facility] Pathology and Laboratory Medicine [place] ([facility]). It has not been cleared or approved by the FDA. -[facility] is regulated under CLIA as qualified to perform high-complexity testing. This test is used for clinical purposes. It should not be regarded as investigational or for research. Performed By: [address] [place] [address] Adjudication Specialist: Francine Casey M.D. CLIA#: [id number] Phone#: LAB REVWBY(LOINC) Hemochromatosis Reviewed by Reviewed by Shant Wong MD ([id number]) Result Comment: Performed By: [facility] [employer] [address] [place] [address] Adjudication Specialist: Francine Casey M.D. CLIA#: [id number] Phone#: Performed By: #### HEMDNA #### [place] [address] US ABDOMEN LIMITED Observed: 10/14/2017 Status: F Source: [facility] 9:00 AM [facility] REPOSITORY ORIGINAL Ultrasound of the RIGHT upper quadrant CLINICAL STATEMENT: mass, likely cirrhosis, abnormal CT COMPARISON: CT 10/13/2017 FINDINGS: The gallbladder is moderately distended with mild nonspecific diffuse wall thickening. No calculus. Negative sonographic Cisneros sign.. There is no intra or extrahepatic bile duct dilatation. The common duct is 3 mm at the lexy hepatis. The visualized liver is diffuse heterogeneity and coarsening of its echotexture. Echogenicity is mildly increased. This indicates a diffuse hepatocellular process. No obvious significant nodularity of t he liver margins. No mass lesion is seen. The pancreas is not adequately visualized to exclude pathology. There is a moderate amount of ascites in the upper and lower quadrants of the abdomen. Survey images of the right kidney show no pelvocaliectasis. IMPRESSION:Moderate ascites. Heterogeneous liver that may be from fatty infiltration or cirrhosis. No focal lesion is identified on this study. Interpreted By: Sammy Bowen MD Preliminary Report By: Sammy Bowen MD Electronically Signed By: Sammy Bowen MD Dictated Date: 10/14/2017 9:19:56 AM Prelim Date: 10/14/2017 9:19:56 AM Sign Date: 10/14/2017 9:22:38 AM CBC Collected: 10/14/2017 Status: F Source: [facility] 3:52 AM [facility] REPOSITORY TYPE CODE TESTS RESULT OUT OF REFERENCE UNITS RANGE LAB WBC(LOINC) 4.50-10.80 10 3/mcL High WBC 17.70 LAB RBCCT(LOINC 4.10-5.30 10 6/mcL ) Low RBC 2.70 LAB HGB(LOINC) 12.0-16.0 G/dL Low Hgb 9.7 LAB HCT(LOINC) 34.0-46.0 % Low Hct 28.7 LAB MCV(LOINC) 80.0-99.0 fL High MCV 106.6 LAB MCH(LOINC) 27.0-33.0 pg High MCH 35.9 LAB MCHC(LOINC) 32.0-36.0 G/dL MCHC 33.7 LAB RDW(LOINC) 11.5-15.5 % High RDW 16.7 LAB PLT(LOINC) 150-450 10 3/mcL Platelet 224 LAB MPV(LOINC) 6.6-10.5 fL MPV 8.9 Performed By: #### CBC, ADIFF, ANEU, LD, MG, GFR, CMP #### [address] [address] .AUTO DIFF Collected: 10/14/2017 Status: F Source: [facility] 3:52 AM [facility] [place] REPOSITORY TYPE CODE TESTS RESULT OUT OF REFERENCE UNITS RANGE LAB SILVANO(LOINC) 50.0-75.0 % Neutrophil % 62.5 LAB LYM(LOINC) 20.0-40.0 % Lymphocyte % 27.8 LAB MON(LOINC) 2.0-13.0 % Monocyte % 8.4 LAB EO(LOINC) 0.0-6.0 % Eosinophil % 0.7 LAB BAS(LOINC) 0.0-2.5 % Basophil % 0.6 LAB ABLYM(LOIN 0.90-4.32 10 3/mcL C) High Lymphocyte, 4.90 Absolute LAB AMBER(LOINC 0.09-1.40 10 3/mcL ) High Monocyte, 1.50 Absolute LAB AEOS(LOINC 0.00-0.65 10 3/mcL ) Eosinophil, 0.10 Absolute LAB ABAS(LOINC 0.00-0.27 10 3/mcL ) Basophil, 0.10 Absolute Performed By: #### CBC, ADIFF, ANEU, LD, MG, GFR, CMP #### [address] [address] .NEUABS Collected: 10/14/2017 Status: F Source: [facility] 3:52 AM [facility] [place] REPOSITORY TYPE CODE TESTS RESULT OUT OF REFERENCE UNITS RANGE LAB ANEU(LOINC) 2.25-8.10 10 3/mcL High Neutrophil, 11.00 Absolute Performed By: #### CBC, ADIFF, ANEU, LD, MG, GFR, CMP #### [address] [address] LDH Collected: 10/14/2017 Status: F Source: [facility] 3:52 AM [facility] [place] REPOSITORY TYPE CODE TESTS RESULT OUT OF RANGE REFERENCE UNITS LAB LD(LOINC) 120-246 U/L LDH 191 Performed By: #### CBC, ADIFF, ANEU, LD, MG, GFR, CMP #### [address] [address] MG Collected: 10/14/2017 Status: F Source: [facility] 3:52 AM [facility] [place] REPOSITORY TYPE CODE TESTS RESULT OUT OF REFERENCE UNITS RANGE LAB MG(LOINC) 1.6-2.4 mg/dL Magnesium Lvl 2.1 Performed By: #### CBC, ADIFF, ANEU, LD, MG, GFR, CMP #### [address] [address] .GFR Collected: 10/14/2017 Status: F Source: [facility] 3:52 AM [facility] [place] REPOSITORY TYPE CODE TESTS RESULT OUT OF REFERENCE UNITS RANGE LAB GFRAA(LOINC ml/min/1.73 ) sqm GFR 48 [place] Result Comment: GFR Population mean for , Non- Americans Ages 20-29 = 116 mL/min/1.73 sq.m. Ages 30-39 = 107 mL/min/1.73 sq.m. Ages 40-49 = 99 mL/min/1.73 sq.m. Ages 50-59 = 93 mL/min/1.73 sq.m. Ages 60-69 = 85 mL/min/1.73 sq.m. Ages 70+ = 75 mL/min/1.73 sq.m. Chronic Kidney Disease: Less than 60 mL/min/1.73 square meters End Stage Renal Disease: Less than 15 mL/min/1.73 square meters LAB GFRNO(LOINC) ml/min/1.73sqm GFR Non- 40 Result Comment: GFR Population mean for , Non- Americans Ages 20-29 = 116 mL/min/1.73 sq.m. Ages 30-39 = 107 mL/min/1.73 sq.m. Ages 40-49 = 99 mL/min/1.73 sq.m. Ages 50-59 = 93 mL/min/1.73 sq.m. Ages 60-69 = 85 mL/min/1.73 sq.m. Ages 70+ = 75 mL/min/1.73 sq.m. Chronic Kidney Disease: Less than 60 mL/min/1.73 square meters End Stage Renal Disease: Less than 15 mL/min/1.73 square meters Performed By: #### CBC, ADIFF, ANEU, LD, MG, GFR, CMP #### [place] [address] CMP Collected: 10/14/2017 Status: F Source: [facility] 3:52 AM [facility] REPOSITORY TYPE CODE TESTS RESULT OUT OF REFERENCE UNITS RANGE LAB GLU(LOINC) 70-110 mg/dL Glucose Level 106 LAB NA(LOINC) 136-145 mEq/L Sodium Level 140 LAB K(LOINC) 3.5-5.0 mEq/L Low Potassium Level 3.4 LAB CL(LOINC) 98-110 mEq/L Chloride 100 LAB CO2(LOINC) 22-32 mEq/L CO2 31 LAB EBAL(LOINC 4.0-15.0 mEq/L ) Electrolyte Balance 9.0 LAB BUN(LOINC) 8.0-22.0 mg/dL BUN 10.0 LAB CRE(LOINC) 0.50-1.20 mg/dL Creatinine High Lvl (s) 1.38 LAB BC(LOINC) 10.0-22.0 ratio Low BUN/Creatinine 7.2 Ratio LAB CA(LOINC) 8.4-10.1 mg/dL Low Calcium Lvl 7.5 LAB PROT(LOINC 6.0-8.5 G/dL ) Total Protein 6.1 LAB ALB(LOINC) 3.2-4.8 G/dL Low Albumin Level 1.4 LAB GLB(LOINC) 1.5-3.8 G/dL Globulin High 4.7 LAB AG(LOINC) 0.9-1.6 ratio Low A/G Ratio 0.3 LAB BILT(LOINC 0.2-1.2 mg/dL ) Bili Total High 1.5 LAB AP(LOINC) 38-126 U/L Alk Phos High 149 LAB AST(LOINC) 8-34 U/L AST/SGOT High 57 LAB ALT(LOINC) 10-49 U/L ALT/SGPT 18 Performed By: #### CBC, ADIFF, ANEU, LD, MG, GFR, CMP #### [place] [address] AMM Collected: 10/13/2017 Status: F Source: [facility] 11:28 [facility] REPOSITORY TYPE CODE TESTS RESULT OUT OF REFERENCE UNITS RANGE LAB AMM(LOINC) 25-35 mcmol/l Ammonia 27 Performed By: #### AMM, PRO, FERR, AFPS, EVELINA, HEPAC, VAMSI, SMUSC, COPPER, SMUST #### [place] [address] PRO Collected: 10/13/2017 Status: F Source: [facility] 11:28 [facility] REPOSITORY TYPE CODE TESTS RESULT OUT OF REFERENCE UNITS RANGE LAB PT(LOINC) 9.0-14.5 seconds High Protime 22.4 Result Comment: Effective 11/29/07, Protime results may be affected by some antibiotics (i.e. Ciprofloxacin, Azithromycin, Bactrim) which may potentiate the action of oral anticoagulants, with further increases in Protime/INR. LAB INR(LOINC) ratio PT International Ratio 1.9 Result Comment: [employer] (CHEST, 1992, 102:312S-25S) recommended therapeutic range for oral anticoagulant therapy is: LOW RISK: Prophylaxis of venous thrombosis INR: 2.0-3.0 Treatment of pulmonary embolism 2.0-3.0 Prevention of systemic embolism 2.0-3.0 HIGH RISK: Mechanical prosthetic valves 2.5-3.5 Performed By: #### AMM, PRO, FERR, AFPS, EVELINA, HEPAC, VAMSI, SMUSC, COPPER, SMUST #### [place] [address] FERR Collected: 10/13/2017 Status: F Source: [facility] 11:28 PM [facility] REPOSITORY TYPE CODE TESTS RESULT OUT OF REFERENCE UNITS RANGE LAB FERR(LOINC) 8-252 ng/mL High Ferritin 891 Performed By: #### AMM, PRO, FERR, AFPS, EVELINA, HEPAC, VAMSI, SMUSC, COPPER, SMUST #### [place] [address] AFPS Collected: 10/13/2017 Status: F Source: [facility] 11:28 [facility] REPOSITORY TYPE CODE TESTS RESULT OUT OF REFERENCE UNITS RANGE LAB AFPS(LOINC) 0.0-8.5 ng/mL AFP, Tumor 2.9 Marker Performed By: #### AMM, PRO, FERR, AFPS, EVELINA, HEPAC, VAMSI, SMUSC, COPPER, SMUST #### [place] [address] EVELINA Collected: 10/13/2017 Status: F Source: [facility] 11:[address] [place] [address] REPOSITORY TYPE CODE TESTS RESULT OUT OF RANGE REFERENCE UNITS LAB EVELINA(LOINC) Neg 40 EVELINA Neg 40 Performed By: #### AMM, PRO, FERR, AFPS, EVELINA, HEPAC, VAMSI, SMUSC, COPPER, SMUST #### [place] [address] HEPAC Collected: 10/13/2017 Status: F Source: [facility] 11:[address] [place] [address] REPOSITORY TYPE CODE TESTS RESULT OUT OF REFERENCE UNITS RANGE LAB HBSAG(LOINC Negative ) Hep B Negative Surf Ag LAB HBCM(LOINC) Negative Hep B Negative Core IgM Ab Result Comment: No serological evidence of ACUTE Hepatitis B infection. LAB HCV(LOINC) Negative Negative Hep C Ab LAB HCV1(LOINC) No serological evidence of Hep C Ab Hepatitis C Int infection, although levels of anti-HCV may be undetectable in early infection. LAB HAVM(LOINC) Negative Negative Hep A IgM Ab LAB HAVM1(LOINC) No serological evidence of a Hep A IgM current Hepatitis A Ab Int infection. Performed By: #### AMM, PRO, FERR, AFPS, EVELINA, HEPAC, VAMSI, SMUSC, COPPER, SMUST #### [place] [address] VAMSI Collected: 10/13/2017 Status: F Source: [facility] 11:28 [facility] REPOSITORY TYPE CODE TESTS RESULT OUT OF REFERENCE UNITS RANGE LAB VAMSI(LOINC Neg 20 ) Mitochondrial Ab Neg 20 Performed By: #### AMM, PRO, FERR, AFPS, EVELINA, HEPAC, VAMSI, SMUSC, COPPER, SMUST #### [address] [address] SMUSC Collected: 10/13/2017 Status: F Source: [facility] 11:28 [facility] REPOSITORY TYPE CODE TESTS RESULT OUT OF REFERENCE UNITS RANGE LAB SMUSC(LOINC Neg 20 ) Smooth Muscle See Titer Ab Performed By: #### AMM, PRO, FERR, AFPS, EVELINA, HEPAC, VAMSI, SMUSC, COPPER, SMUST #### [address] [address] CUS Collected: 10/13/2017 Status: F Source: [facility] 11:28 [facility] REPOSITORY TYPE CODE TESTS RESULT OUT OF REFERENCE UNITS RANGE LAB COPPER(LOIN 85-155 UG/DL C) Low Copper (s) 62 Result Comment: This test was developed and its performance characteristics determined by [facility] [place] ([facility]). It has not been cleared or approved by the FDA. -[facility] is regulated under CLIA as qualified to perform high-complexity testing. This test is used for clinical purposes. It should not be regarded as investigational or for research. Performed By: [facility] [address] [place] [address] Adjudication Specialist: Francine Casey M.D. IA#: [id number] Phone#: Performed By: #### AMM, PRO, FERR, AFPS, EVELINA, HEPAC, VAMSI, SMUSC, COPPER, SMUST #### [address] [address] SMUST Collected: 10/13/2017 Status: F Source: [facility] 11:28 [facility] REPOSITORY TYPE CODE TESTS RESULT OUT OF REFERENCE UNITS RANGE LAB SMUST(LOINC Neg 20 ) Smooth Muscle Pos 40 Ab Titer Result Comment: An Anti-smooth muscle antibody (ASMA) of 1:160 or greater is seen in approximately 80% of patients with HBSAG-neg Chronic Active Hepatitis (CAH). Low ASMA titers may be present in viral infections, malignancies and normal individuals. Performed By: #### AMM, PRO, FERR, AFPS, EVELINA, HEPAC, VAMSI, SMUSC, COPPER, SMUST #### [place] [address] BFCT Collected: 10/13/2017 Status: C Source: [facility] 8:30 PM [facility] REPOSITORY TYPE CODE TESTS RESULT OUT OF REFERENCE UNITS RANGE LAB BSORC(LOIN C) Paracentesis Body Fluid Source Result Comment: Reference ranges have not been established for this body fluid. The test results must be integrated into the clinical context for interpretation. LAB BNBC(LOINC) /mm3 Nucleated blood cells 48 Performed By: #### BFCT, GLUBF, LDBF, PROBF #### [place] [address] GLUBF Collected: 10/13/2017 Status: F Source: [facility] 8:30 PM [facility] REPOSITORY TYPE CODE TESTS RESULT OUT OF REFERENCE UNITS RANGE LAB BFGLU(LOIN C) Glucose Body Peritoneal fl Fluid Spec Type LAB GLUB(LOINC mg/dL ) 127.0 Glucose BF Result Comment: The reference interval(s) and other method performance specifications have not been established for this body fluid. The test result must be integrated into the clinical content for interpretation. Performed By: #### BFCT, GLUBF, LDBF, PROBF #### [place] [address] LDBF Collected: 10/13/2017 Status: F Source: [facility] 8:30 [facility] REPOSITORY TYPE CODE TESTS RESULT OUT OF REFERENCE UNITS RANGE LAB BFLD(LOINC ) LDH Peritoneal fl Body Fluid Spec Type LAB [id number] U/L (LOINC) 48.0 LDH BF Result Comment: The reference interval(s) and other method performance specifications have not been established for this body fluid. The test result must be integrated into the clinical content for interpretation. Performed By: #### BFCT, GLUBF, LDBF, PROBF #### [place] [address] PROBF Collected: 10/13/2017 Status: F Source: [facility] 8:30 PM [facility] REPOSITORY TYPE CODE TESTS RESULT OUT OF REFERENCE UNITS RANGE LAB [id number] 63(LOINC) Protein BF Peritoneal fl Type LAB PROB(LOINC G/dL ) <2.0 Protein BF Result Comment: The reference interval(s) and other method performance specifications have not been established for this body fluid. The test result must be integrated into the clinical content for interpretation. Performed By: #### BFCT, GLUBF, LDBF, PROBF #### [facility] [address] [place] [address] XR CHEST 1 VIEW Observed: 10/13/2017 Status: F Source: [facility] 3:04 PM [facility] REPOSITORY ORIGINAL Portable Chest x-ray Clinical Statement: cough Comparison: None Low lung volumes, but no focal consolidation, congestion, pleural effusion, or pneumothorax is seen. The cardiac silhouette is unremarkable. IMPRESSION: Hypoventilation. No consolidation seen. Interpreted By: Nasim Webb DO Preliminary Report By: Nasim Webb DO Electronically Signed By: Nasim Webb DO Dictated Date: 10/13/2017 3:34:56 PM Prelim Date: 10/13/2017 3:34:56 PM Sign Date: 10/13/2017 3:35:[address] ABD/PELVIS W/ IV Observed: 10/13/2017 Status: F Source: [facility] CONTRAST ONLY 3:04 PM [facility] REPOSITORY ORIGINAL CT ABD/PELVIS W/ IV CONTRAST ONLY (IV contrast) Clinical information: pain Comparison: None. This exam was performed according to our departmental dose optimization program, and includes the following measures where applicable: automated exposure control, adjustment of the mAs and/or kVp accord ing to patient size and/or exam, and an iterative reconstruction algorithm. The liver is normal in size but heterogeneous in attenuation. More focal hypodensity seen anteriorly in the LEFT hepatic lobe on image 16 measuring 5.5 x 1.8 cm in size. No biliary duct dilatation is se en. The spleen and pancreas are normal in appearance. Gallbladder is present. A large amount of ascites is seen. Portal vein is patent. Varices and recanalized umbilical vein are not seen on this exam. The adrenal glands are normal in configuration. The kidneys are functioning and show no mass or hydronephrosis. No retroperitoneal mass or adenopathy is present. The urinary bladder is unremarkable. [place] paulette is mildly enlarged and lobulated in configuration. No pelvic mass is identified. There is no abnormality of the stomach, small or large bowel. Skeletal structures are normal. Scans obtained through the lung bases show a very small LEFT pleural effusion. IMPRESSION: Large amount of ascites. Heterogeneous appearing liver may be related to fatty infiltration or fibrosis/cirrhosis. A mass is not excluded in the anterior LEFT hepatic lobe. Consider evaluation at least initially with ultrasound. Fibroid uterus. Small LEFT pleural effusion. Interpreted By: Quan Bailey MD Preliminary Report By: Quan Bailey MD Electronically Signed By: Quan Bailey MD Dictated Date: 10/13/2017 3:36:44 PM Prelim Date: 10/13/2017 3:36:44 PM Sign Date: 10/13/2017 3:46:57 PM CBC Collected: 10/13/2017 Status: F Source: [facility] 2:21 [facility] REPOSITORY TYPE CODE TESTS RESULT OUT OF REFERENCE UNITS RANGE LAB WBC(LOINC) 4.60-10.80 10 3/mcL High WBC 17.70 LAB RBCCT(LOINC 4.20-5.40 10 6/mcL ) Low RBC 3.42 LAB HGB(LOINC) 12.0-16.0 G/dL Hgb 12.2 LAB HCT(LOINC) 37.0-47.0 % Low Hct 35.6 LAB MCV(LOINC) 80.0-94.0 fL High MCV 104.1 LAB MCH(LOINC) 27.0-31.2 pg High MCH 35.7 LAB MCHC(LOINC) 33.0-37.0 G/dL MCHC 34.3 LAB RDW(LOINC) 11.5-14.5 % High RDW 16.6 LAB PLT(LOINC) 130-400 10 3/mcL Platelet 286 LAB MPV(LOINC) 7.4-10.4 fL MPV 9.4 Performed By: #### CBC, ADIFF, ANEU, GFR, LIP, CMP #### [address] [address] .AUTO DIFF Collected: 10/13/2017 Status: F Source: [facility] 2:21 [facility] REPOSITORY TYPE CODE TESTS RESULT OUT OF REFERENCE UNITS RANGE LAB SILVANO(LOINC) 37.0-80.0 % Neutrophil % 73.0 LAB LYM(LOINC) 10.0-50.0 % Lymphocyte % 19.8 LAB MON(LOINC) 1.7-13.0 % Monocyte % 6.7 LAB EO(LOINC) 0.0-7.0 % Eosinophil % 0.2 LAB BAS(LOINC) 0.0-2.5 % Basophil % 0.3 LAB ABLYM(LOIN 0.77-3.85 10 3/mcL C) Lymphocyte, 3.50 Absolute LAB AMBER(LOINC 0.15-1.00 10 3/mcL ) High Monocyte, 1.20 Absolute LAB AEOS(LOINC 0.00-0.40 10 3/mcL ) Eosinophil, 0.00 Absolute LAB ABAS(LOINC 0.00-0.19 10 3/mcL ) Basophil, 0.10 Absolute Performed By: #### CBC, ADIFF, ANEU, GFR, LIP, CMP #### [address] [address] .NEUABS Collected: 10/13/2017 Status: F Source: [facility] 2:21 [facility] REPOSITORY TYPE CODE TESTS RESULT OUT OF REFERENCE UNITS RANGE LAB ANEU(LOINC) 2.85-6.16 10 3/mcL High Neutrophil, 12.90 Absolute Performed By: #### CBC, ADIFF, ANEU, GFR, LIP, CMP #### [address] [address] .GFR Collected: 10/13/2017 Status: F Source: [facility] 2:21 [facility] REPOSITORY TYPE CODE TESTS RESULT OUT OF REFERENCE UNITS RANGE LAB GFRAA(LOINC ml/min/1.73 ) sqm GFR 46 Sur[place]amese Result Comment: GFR Population mean for , Non- Americans Ages 20-29 = 116 mL/min/1.73 sq.m. Ages 30-39 = 107 mL/min/1.73 sq.m. Ages 40-49 = 99 mL/min/1.73 sq.m. Ages 50-59 = 93 mL/min/1.73 sq.m. Ages 60-69 = 85 mL/min/1.73 sq.m. Ages 70+ = 75 mL/min/1.73 sq.m. Chronic Kidney Disease: Less than 60 mL/min/1.73 square meters End Stage Renal Disease: Less than 15 mL/min/1.73 square meters LAB GFRNO(LOINC) ml/min/1.73sqm GFR Non- 38 Result Comment: GFR Population mean for , Non- Americans Ages 20-29 = 116 mL/min/1.73 sq.m. Ages 30-39 = 107 mL/min/1.73 sq.m. Ages 40-49 = 99 mL/min/1.73 sq.m. Ages 50-59 = 93 mL/min/1.73 sq.m. Ages 60-69 = 85 mL/min/1.73 sq.m. Ages 70+ = 75 mL/min/1.73 sq.m. Chronic Kidney Disease: Less than 60 mL/min/1.73 square meters End Stage Renal Disease: Less than 15 mL/min/1.73 square meters Performed By: #### CBC, ADIFF, ANEU, GFR, LIP, CMP #### [address] [address] LIP Collected: 10/13/2017 Status: F Source: [facility] 2:21 PM [facility] REPOSITORY TYPE CODE TESTS RESULT OUT OF REFERENCE UNITS RANGE LAB LIP(LOINC) 8-78 IU/L Lipase Level 38 Performed By: #### CBC, ADIFF, ANEU, GFR, LIP, CMP #### [address] [address] CMP Collected: 10/13/2017 Status: F Source: [facility] 2:21 [facility] REPOSITORY TYPE CODE TESTS RESULT OUT OF RANGE REFERENCE UNITS LAB GLU(LOINC) 70-105 mg/dL High Glucose Level 120 LAB NA(LOINC) 136-146 mEq/L Low Sodium Level 135 LAB K(LOINC) 3.5-5.1 mEq/L Potassium Abnormal Level 2.5 Alert LAB CL(LOINC) 98-107 mEq/L Chloride 100 LAB CO2(LOINC) 22-29 mEq/L High CO2 30 LAB EBAL(LOINC mEq/L ) Electrolyte Balance 5.0 LAB BUN(LOINC) 7.0-18.0 mg/dL BUN 9.5 LAB CRE(LOINC) 0.6-1.2 mg/dL High Creatinine Lvl (s) 1.4 LAB BC(LOINC) 7-27 ratio BUN/Creatinine 7 Ratio LAB CA(LOINC) 8.4-10.2 mg/dL Low Calcium Lvl 7.7 LAB PROT(LOINC 6.0-8.3 G/dL ) Total Protein 7.6 LAB ALB(LOINC) 3.5-5.0 G/dL Low Albumin Level 2.2 LAB GLB(LOINC) G/dL Globulin 5.4 LAB AG(LOINC) 1.1-2.5 ratio Low A/G Ratio 0.4 LAB BILT(LOINC 0.2-1.0 mg/dL ) High Bili Total 2.4 LAB AP(LOINC) 40-135 IU/L High Alk Phos 184 LAB AST(LOINC) 10-40 IU/L High AST/SGOT 68 LAB ALT(LOINC) 10-35 IU/L ALT/SGPT 21 Performed By: #### CBC, ADIFF, ANEU, GFR, LIP, CMP #### [address] [place], [place] [address] ALC Collected: 10/13/2017 Status: F Source: [facility] 2:21 [facility] REPOSITORY TYPE CODE TESTS RESULT OUT OF REFERENCE UNITS RANGE LAB CD:[id number]( mg/dL LOINC) Ethanol Level <10 Performed By: #### ALC #### [address] [address] ALLERGIES ALLERGIES DATE TYPE / CODE NAME / CODE REACTION SEVERITY SOURCE 05/31/2018 Drug No Known Unknown [facility] Allergy/4160 Allergies/F00 [facility] [address](SNOMED [id number](RXNOR Repository CT) M) ENCOUNTERS ENCOUNTERS ADMIT/DISCHARGE ACCOUNT NUMBER ADMITTING ENCOUNTER LOCATION SOURCE CLASS 06/06/2018 [id number] Ambulatory ABuilding:XR [facility] Repository 06/01/2018 [id number] Ambulatory ABuilding:XR [facility] Repository 05/31/2018/06/03/19 [id number] [facility], Inpatient Nicolette Stanley 19 Ghasem Encounter [facility] ding:PCURoom Repository : [id number]: 1 05/31/2018 [id number] [facility], Ambulatory BMSBuilding: Stanley Ghasem [facility] Repository 05/31/2018 [id number] [facility], Ambulatory BMSBuilding: Stanley Ghasem [facility] Repository 05/31/2018 [id number] [facility], Ambulatory BMSBuilding: Stanley Ghasem [facility] Repository 05/31/2018 [id number] [place], Ambulatory BMSBuilding: Stanley Ghasem [facility] Repository 05/27/2018 [id number] Ambulatory ABuilding:[facility] Repository 05/27/2018/05/27/19 [id number] Ambulatory ABuilding:XR [facility] Repository 05/20/2018/05/20/19 [id number] Ambulatory ABuilding:XR [facility] Repository 05/11/2018/05/11/20 [id number] Ambulatory ABuilding:XR [facility] Repository 05/04/2018/05/04/20 [id number] Ambulatory BMSBuilding: Nicolette 18 BMS.[facility] Repository 05/02/2018/05/02/20 [id number] Ambulatory ABuilding:XR [facility] Repository 04/27/2018 [id number] Ambulatory [facility] ding:MEDOUTP Repository 04/26/2018 [id number] Ambulatory [facility] ding:PAVLAB Repository 04/25/2018/04/25/20 [id number] Ambulatory ABuilding:XR Jazz 18 [facility] Repository 04/20/2018 [id number] Ambulatory [facility] ding:PAVLAB Repository 04/18/2018/04/18/20 [id number] Ambulatory ABuilding:XR [facility] Repository 04/13/2018/04/13/20 [id number] Ambulatory BMSBuilding: Stanley 18 BMS.[facility] Repository 04/11/2018/04/11/20 [id number] Ambulatory ABuilding:XR [facility] Repository 03/29/2018/03/29/20 [id number] Ambulatory ABuilding:XR [facility] Repository 03/25/2018 [id number] Ambulatory BMSBuilding: Stanley [facility] Repository 03/24/2018 [id number] Ambulatory [facility] ding:PSN Repository 03/18/2018/03/18/20 [id number] Ambulatory AULTMANBuild Jazz 18 ing:[facility] Repository 03/11/2018/03/11/20 [id number] Ambulatory AULTMANBuild Jazz 18 ing:[facility] Repository 03/10/2018 [id number] Ambulatory [facility] ding:CT Repository 03/10/2018 [id number] Ambulatory BMSBuilding: Stanley [facility] Repository 03/09/2018 [id number] Ambulatory [facility] ding:PSN Repository 03/04/2018/03/04/20 [id number] Ambulatory AULTMANBuild Jazz 18 ing:[employer] Repository 03/01/2018/03/01/20 [id number] Ambulatory BMSBuilding: Stanley 18 [facility] Repository 02/24/2018/02/25/20 [id number] Ambulatory AULTMANBuild Jazz 18 ing:[employer] Repository 02/19/2018 [id number] Ambulatory [facility] ding:OPBI Repository 02/16/2018/02/17/20 [id number] Ambulatory AULTMANBuild Jazz 18 ing:[facility] Repository 02/09/2018/02/10/20 [id number] Ambulatory AULTMANBuild Jazz 18 ing:[facility] Repository 02/08/2018 [id number] Ambulatory [facility] ding:CT Repository 01/26/2018/01/27/20 [id number] Ambulatory AULTMANBuild Jazz 18 ing:[facility] Repository 01/19/2018/01/20/20 [id number] Ambulatory AULTMANBuild Jazz 18 ing:[facility] Repository 01/11/2018/01/12/20 [id number] Ambulatory AULTMANBuild Jazz 18 ing:[facility] Repository 01/07/2018/01/08/20 [id number] Ambulatory AULTMANBuild Jazz 18 ing:[facility] Repository 01/03/2018/08/20 [id number] Ambulatory AULTMANBuild Jazz 18 ing:[facility] Repository 12/29/2017 [id number] Ambulatory ABuilding:XR Jazz AY [facility] Repository 12/28/2017 [id number] Ambulatory ABuilding:IN Jazz F [facility] Repository 12/27/2017/12/28/19 [id number] Ambulatory AULTMANBuild Jazz 18 ing:[facility] Repository 12/17/2017/12/19/19 [id number] KELLEY BABCOCK., Ambulatory ABuilding:ME Jazz De Jesus MD. JOYCE Rodriguez 6SRoom: [employer] 6660Bed: [employer] [facility] Repository 12/09/2017/12/10/19 [id number] Ambulatory AULTMANBuild Jazz 18 ing:[facility] Repository 12/09/2017/12/10/19 [id number] Emergency ABuilding:ER Jazz 18 [facility] Repository 12/03/2017/12/04/19 [id number] Ambulatory AULTMANBuild Jazz 18 ing:[facility] Repository 12/02/2017/12/03/19 [id number] Emergency ABuilding:ER Jazz 18 [facility] Repository 11/19/2017/11/20/19 [id number] Ambulatory AULTMANBuild Jazz 18 ing:[facility] Repository 11/18/2017/11/19/19 [id number] Emergency ABuilding:ER Jazz 18 [facility] Repository 11/01/2017/11/02/19 [id number] Ambulatory AULTMANBuild Jazz 18 ing:[facility] Repository 10/27/2017 [id number] Ambulatory ABuilding:XR [facility] Repository 10/13/2017/10/17/19 [id number] NEEL BABCOCK, Inpatient ABuilding:ME Jazz Rodriguez Encounter 6NRoom: Health 6608Bed: [facility] Repository 10/13/2017/10/14/19 [id number] Emergency BBuilding:ER [facility] 18 [facility] Repository PAYERS PAYERS ENCOUNTER GUARANTOR PAYER SUBSCRIBER SOURCE 06/06/2018 KEYLA J Primary KEYLA J [facility]: Insurance:SELF PAY [facility]: [facility] [id number] INSCOPolicy Number: [id number] Repository [place] Effective [address] [facility] [place] Date:2018-06-03 - [facility] [place] [address]Sgi: [phone] Name:8 [id number]: (HP) 275 (HP) (WP) 06/01/2018 KEYLA Rivero Primary KEYLA Rivero [facility]: Insurance:SELF PAY [facility]: [facility] [id number] INSCOPolicy Number: [id number] Repository SCHELLIN Effective 6 SCHE[address] [facility], [place] Date:2018-05-27 - [facility] [place] [address]Hhq: [phone] Name:[id number]: (HP) 275 (HP) (WP) 05/31/2018 KEYLA Rivero Primary NOT GIVENUNK Nicolette [id number] Insurance:SELF [place]Y [facility] [place] Number: Effective Repository [id number]: (330) Date:2018-05-31 (HP) 05/31/2018 KEYLA Rivero Primary NOT GIVENUNK Stanley [id number] Insurance:SELF PAY [facility] Number: Effective Repository [phone]: (330) Date:2018-05-31 (HP) 05/31/2018 KEYLA Rivero Primary NOT GIVENUNK Stanley [id number] Insurance:SELF PAY [facility] Number: Effective Repository [address]Kms: (330) Date:2018-05-31 (HP) 05/31/2018 KEYLA Rivero Primary NOT GIVENUNK Stanley [id number] Insurance:SELF PAY [facility] Number: Effective Repository [phone]: (330) Date:2018-05-31 [phone] (HP) 05/31/2018 [facility]2596 Insurance:SELF PAY [facility] [place] Number: Effective Repository [address]Ksy: (330) Date:2018-05-31 [phone] (HP) 05/27/2018 [facility] INSCOPolicy Number: [id number] Repository [place] Effective [address] [facility] [place] Date:2018-05-27 [place] [address]Qbb: 330 [id number] Name:8 [id number]: (HP) 275 (HP) (WP) 05/27/2018 [facility]LF [facility]: [facility] [id number] INSCOPolicy Number: [id number] Repository [place] Effective [address] [place] Date:2018-05-23 - [place], [place] [address]Bux: [phone] [phone] Name:8 [id number]: (HP) 275 (HP) (WP) 05/20/2018 [facility]: Insurance:SELF PAY [facility]: [facility] [id number] INSCOPolicy Number: [id number] Repository [place] Effective [address] [place] [place] Date:2018-05-19 [place] [address]Yaz: [phone] [id number] Name:8 [id number]: (HP) [phone] (HP) (WP) 05/11/2018 [facility] Primary [facility]: Insurance:[facility]: [facility] [id number] Repository SCHE[place] Number: [address] [facility] [place] [id number] [place], [place] [address]Dlf: (330) Date:2018-04-25 [address]Nwf: (HP) [id number] Name:XPO Box ()Tel: (000) [address] [place] [address] 000-0000 (WP) 18[address]HT: 05/04/2018 [facility] Primary Insurance:[facility] KEYLA Rivero [id number] [facility]: [facility] SCHELLIN Number: [id number] [place], [place] [id number] Repository [address]Gsj: (330) Date:[id number] [address] (HP) [address] [place] [address] 11[address]IR: 05/04/2018 Secondary NOT GIVENUNK Nicolette Insurance:SELF PAY [facility] Number: Effective Repository Date:2018-04-27 05/02/2018 [facility] Primary [facility]: Insurance:[facility]: [facility] [id number] [facility] [id number] Repository [place]HELLIN Number: [address] [place] [id number] [facility], [place] [address]Kqu: (330) Date:2018-04-25 [address]Yya: (HP) [id number] Name:XPO Box (HP)Tel: (000) [address] [place] [address] 000-0000 (WP) 304[address]KM: 04/27/2018 [facility] Primary Insurance:[facility] KEYLA Rivero [address]: [facility] SCHELLIN Number: [id number], [place] [id number] Repository [address]Vre: (330) Date:0072-82-23KG [address] () [address] [place] [address] 20[address]IA: 04/27/2018 Secondary NOT GIVENUNK Stanley Insurance:SELF PAY [facility] Number: Effective Repository Date:2018-04-18 04/26/2018 KEYLA Josefa Primary Insurance:[facility] KEYLA Will [id number] [facility] Community [place] Number: [id number], [place] [id number] Repository [address]Byl: (330) Date:4823-58-94WD [phone] () [address] [place] [address] 325[address]IM: 04/26/2018 Secondary NOT GIVENUNK Nicolette Insurance:SELF PAY [facility] Number: Effective Repository Date:2018-04-26 04/25/2018 KEYLA Josefa Primary KEYLA [facility]o [facility] [id number] [facility] [id number] Repository SCHE[place]IN Number: [address] [place], [place] [id number] [place], [place] [address]Zmq: (330) Date:2018-04-11 [address]65[address]Evd: () [id number] Name:XPO Box ()Tel: [address] [place] [address] 000-0000 () [address]TA: 04/20/2018 KEYLA Rivero Primary Insurance:[facility] KEYLA Ver[facility] [facility]: [facility] SCHELLIN Number: [id number], [place] [id number] Repository [address]Vbl: (330) Date:8923-58-55PK [address] () [address] [place] [address] 36[address]WZ: 04/20/2018 Secondary NOT GIVENUNK Stanley Insurance:SELF PAY [facility] Number: Effective Repository Date:2018-04-20 04/18/2018 [facility]: Insurance:[facility]: [facility] [id number] [facility] [id number] Repository [place] Number: [address] [place], [place] [id number] [place] [address]Hip: (330) Date:2018-04-1136240Twd: (HP) [id number] [phone] Name:XPO Box ()Tel: (000) [address] [place] [address] 000-0000 (WP) 730[address]UT: 04/13/2018 [facility] Insurance:[facility]2596 [facility]: [facility] SCHELLIN Number: [id number] [place], [place] [id number] Repository [address]Fwv: (330) Date:3397-74-31AS [address] () [address] [place] [address] 03011ST: 04/13/2018 Secondary NOT GIVENUNK Stanley Insurance:SELF PAY [facility] Number: Effective Repository Date:2018-04-05 04/11/2018 [facility]: Insurance:[facility]: [facility] [id number] [facility] [id number] Repository [place] Number: [address] [place] [id number] [place], [place] [address]Ibc: (330) Date:2018-04-0152626Qaj: (HP) [id number] [phone] Name:XPO Box ()Tel: (000) [address] [place] [address] 000-0000 (WP) 28152UB: 03/29/2018 KEYLA J Primary KEYLA J [facility]: Insurance:[facility]: [facility] [id number] [facility] [id number] Repository [place]HELLIN Number: [address] [facility] [facility] [place] [id number] [facility] [place] [address]Tvt: (330) Date:2018-03-28Tel: (HP) [id number] Name:XPO Debra ()Tel: (046) [address] [place] [address] 000-0000 () 397[address]GR: 03/25/2018 KEYLA Rivero Primary Insurance:[facility] KEYLA Will [id number] [facility]: [facility] SCHELLIN Number: [id number] [place], [place] [id number] Repository [address]Vwp: (330) Date:8831-67-61DE [address] () [address] [place] [address]MV: 03/25/2018 Secondary NOT GIVENUNK Nicolette Insurance:SELF PAY [facility] Number: Effective Repository Date:2018-03-25 03/24/2018 KEYLA Josefa Primary Insurance:[facility] KEYLA Will [id number] [facility]: [facility] SCHELLIN Number: [id number], [place] [id number] Repository [address]Cki: (330) Date:1349-42-77PH [phone] () [address] [place] [address] 25124IR: 03/24/2018 Secondary NOT GIVENUNK Nicolette Insurance:SELF PAY [facility] Number: Effective Repository Date:2018-03-01 03/18/2018 [facility] Primary KEYLA Rivero [facility]: Insurance:[facility]: [facility] [id number] [facility] [id number] Repository [place] Number: [address] [place], [place] [id number] [place], [place] [address]Ckq: (330) Date:2018-03-11 [address]44[address]Ljz: (HP) [id number] Name:XPO Box (HP)Tel: (000) [address] [place] [address] 000-0000 (WP) 455[address]DS: 03/11/2018 KEYLA J Primary [facility]: Insurance:[facility]: [facility] [id number] [facility] [id number] Repository [place] Number: [address] [place], [place] [id number] [place], [place] [address]Uug: (330) Date:2018-03-08 097[address]Jdw: (HP) [id number] [phone] Name:XPO Box ()Tel: (000) [address] [place] [address] 000-0000 (WP) 967[address]FO: 03/10/2018 KEYLA Rivero Primary Insurance:[facility] KEYLA Josefa Nicolette [id number] [facility]: [facility] SCHELLIN Number: [id number], [place] [id number] Repository [address]Fkk: (330) Date:6045-49-87XR [address] (HP) [address] [place] [address] 79[address]XK: 03/10/2018 Secondary NOT GIVENUNK Nicolette Insurance:SELF PAY [facility] Number: Effective Repository Date:2018-03-02 03/10/2018 KEYLA J Primary Insurance:[facility] KEYLA J Stanley [id number] [facility]: [facility] SCHELLIN Number: [id number], [place] [id number] Repository [address]Zwr: (330) Date:6221-62-51AD [address] (HP) [address] [place] [address] 38713VR: 03/10/2018 Secondary NOT GIVENUNK Stanley Insurance:SELF PAY [facility] Number: Effective Repository Date:2018-03-10 03/09/2018 KEYLA Rivero Primary Insurance:[facility] KEYLA Will [id number] [facility] Hospital[facility]: Community [place]HE[place] Number: [id number], [place] [id number] Repository [address]Jep: (330) Date:4896-29-20JL [phone] () [address] [place] [address] 10764YP: 03/09/2018 Secondary NOT GIVENUNK Nicolette Insurance:SELF PAY [facility] Number: Effective Repository Date:2018-03-01 03/04/2018 [facility]: [facility] [id number] [facility] [id number] Repository [place] Number: [address] [place], [place] [id number] [place], [place] [address]Zae: (330) Date:2018-02-24 19833Rvk: (HP) [id number] Name:J CARLOSO Debra ()Tel: (000) [address] [place] [address] 000-0000 () 233[address]DK: 03/01/2018 KEYLA Rivero Primary Insurance:[facility] KEYLA Will [id number] [facility] SCHE[place] Number: [id number], [place] [id number] Repository [address]Ikh: (330) Date:[phone] () [address] [place] [id number]: 03/01/2018 Secondary NOT GIVENUNK Nicolette Insurance:SELF PAY [facility] Hospital Number: Effective Repository Date:2018-03-01 02/24/2018 [facility]: [facility] [id number] [facility] [id number] Repository SCHELLIN Number: [address] [place] [place], [place] [id number], [place] [address]Sck: ([phone]) Date:2018-02-21Tel: (HP) [id number] Name:XPO Box (HP)Tel: (000) [address] [place] [place] [address] [phone] (WP) [id number]: 02/19/2018 [facility] Primary Insurance:[facility] KEYLA Rivero [place] [id number] [facility]: [facility] SCHELLIN Number: [id number] [facility] [place] [id number] Repository [address]Izx: (330) Date:[id number] BOX () [address] [place] [address] 91190WL: 02/19/2018 [facility] [place]icolette Insurance:SELF PAY [facility] Number: Effective Repository Date:2018-01-28 02[facility]2018 [facility]: [facility] [id number] Repository SCHELLIN Number: [address] [place] [id number] [place] [address]Ncg: (330) Date:2018-02-09Tel: (HP) [id number] Name:XPO Box (HP)Tel: (000) [address], [place] 000-0000 (WP) 04682PB: 02/09/2018 [facility]: Insurance:[facility]: [facility] [id number] [facility] [id number] Repository SCHELLIN Number: [address] [place] [id number] [place] [address]Mvu: (330) Date:2018-02-0272620Kuv: (HP) [id number] Name:XPO Box (HP)Tel: (000) [address] [place] [address] 000-0000 (WP) 93481DO: 02/08/2018 [facility] Primary Insurance:[facility] KEYLA J Stanley [id number] [facility] SCHELLIN Number: [id number] [place] [id number] Repository [address]Kfi: (330) Date:[id number] BOX () [address] [place] [address] 32116XU: 02/08/2018 [facility] Nicolette Insurance:SELF PAY [facility] Number: Effective Repository Date:2018-01-27 01/26/2018 [facility]: [facility] [id number] [facility] [id number] Repository SCHELLIN Number: [address] [place] [id number] [place] [address]Ljs: (330) Date:2018-01-21 64219Avx: () [id number] Name:J CARLOSO Box ()Tel: (000) [address] [place] [address] 000-[address] (WP) 62407XP: 01/19/2018 [facility] Primary [facility]: Insurance:[facility]: [facility] [id number] [facility] [id number] Repository SCHELLIN Number: [address] [place] [id number] [place] [address]Inx: (330) Date:2018-01-13 78522Xqh: (HP) [id number] Name:XPO Box (HP)Tel: (000) [address] [place] [address] 000-[address] (WP) 29008KA: 01/11/2018 [facility]: [facility] [id number] Repository SCHELLIN Number: [address] [place] [id number] [place] [address]Lwm: (330) Date:2018-01-04Tel: (HP) [id number] Name:XPO Box (HP)Tel: (000) [address] [place] [address] 000-0000 (WP) 76283PT: 01/07/2018 [facility]: [facility] [id number] Repository SCHELLIN Number: [address] [place] [id number] [place] [address]Tiq: (330) Date:2017-12-29Tel: (HP) [id number] Name:XPO Box (HP)Tel: (000) [address] [place] [address] 000-0000 (WP) 19171IO: 01/03/2018 [facility]: Insurance:[facility]: [facility] [id number] Repository SCHELLIN Number: [address] [place] [id number] [place] [address]Msc: (330) Date:2017-12-27Tel: (HP) [id number] [phone] Name:XPO Box (HP)Tel: (000) [address], [place] 000-[address] (WP) 446[address]SC: 12/29/2017 [facility]: [facility] [id number] [place] [address] [id number] Repository SCHELLIN Number: [address] [place] [id number] [place] [address]Kpk: (330) Date:2017-12-29Tel: (HP) [id number] Name:XPO Box (HP)Tel: (000) [address], [place] 000-0000 (WP) [address]JH: 12/28/2017 [facility]: [facility] [id number] [place] [address] [id number] Repository SCHELLIN Number: [address] [place] [id number] [place] [address]Zej: (330) Date:2017-12-22Tel: (HP) [id number] [phone] Name:XPO Box (HP)Tel: (000) [address], [place] 000-[address] (WP) 514[address]TQ: 12/27/2017 [facility]: Insurance:[facility]: [facility] [id number] Repository SCHELLIN Number: [address] [place] [id number] [place] [address]Zxk: (330) Date:2017-12-22Tel: (HP) [id number] Name:XPO Box (HP)Tel: (000) [address] [place] [address] 000-[address] (WP) 67472DD: 12/17/2017 [facility]: [facility] [id number] Repository SCHELLIN Number: [address] [place] [id number] [place] [address]Zyz: (330) Date:2017-12-17Tel: (HP) [id number] [phone] Name:XPO Box (HP)Tel: (000) [address] [place] [address] 000-[address] (WP) 16264KJ: 12/09/2017 [facility]: Insurance:[facility]: [facility] [id number] Repository SCHELLIN Number: [address] [place] [id number] [place] [address]Eqz: (330) Date:2017-12-09Tel: (HP) [id number] [phone] Name:XPO Box (HP)Tel: (000) [address] [place] [address] (WP) 63034JR: 12/09/2017 [facility]: Insurance:[facility]: [facility] [id number] Repository SCHELLIN Number: [address] [place] [id number] [place] [address]Qcl: (330) Date:2017-12-09Tel: (HP) [id number] Name:XPO Box (HP)Tel: (000) [address] [place] [address] 000-[address] (WP) 31598KG: 12/03/2017 [facility] Insurance:[facility]: [facility] [id number] Repository SCHELLIN Number: [address] [place], [place] [id number] [place] [address]Qfc: (330) Date:2017-12-03Tel: (HP) [id number] [phone] Name:XPO Box (HP)Tel: (000) [address] [place] [address] 000-[address] (WP) 96838PO: 12/02/2017 [facility]: Insurance:[facility]: [facility] [id number] Repository SCHELLIN Number: [address] [place] [id number] [place] [address]Szy: (330) Date:2017-12-02Tel: (HP) [id number] [phone] Name:XPO Box (HP)Tel: (000) [address] [place] [address] 000-[address] (WP) 10173HB: 11/19/2017 [facility]: Insurance:[facility]: [facility] [id number] Repository SCHELLIN Number: [address] [place] [id number] [place] [address]Luh: (330) Date:2017-11-18Tel: (HP) [id number] [phone] Name:XPO Box (HP)Tel: (000) [address], [place] 000-[address] (WP) 24[address]VS: 11/18/2017 [facility] [employer] [id number] Repository SCHELL[place] Number: [address] [place] [id number] [place] [address]Zvj: 330) Date:2017-11-1810602Vnt: () [id number] [phone] Name:J CARLOSO Debra ()Tel: [phone]) [address], [place] [phone] (WP) 299[address]RK: 11/01/2017 [facility] PAYPolicy Number: [id number] Repository [place]IN Effective [address] [place] Date:2017-10-28 [place] [address] [id number] Name:8 [id number]: (WP) 10/27/2017 [facility] PAYPolicy Number: [id number] Repository [place] Effective [address] [place] Date:2017-10-27 [place] [address] [id number] Name:8 [id number]: (WP) 10/13/2017 [facility] PAYPolicy Number: [id number] Repository [place] Effective [address] [place] Date:2017-10-13 [place] [address] [id number] Name:[id number]: (WP) 10/13/2017 [facility] [id number] PAYPolicy Number: [id number] Repository NAVA Effective [address] Date:2017-10-13 [place] [address] [id number] Name:[id number]: (WP)
== END ==
PROVIDERS: Referring Provider Nurse Practitioner Acute Care; Visit Provider Nurse Practitioner Acute Care
DX: R91.8 Other nonspecific abnormal finding of lung field (principal)
CPT/HCPCS: 36415; 85610; 85730

== ENCOUNTER → 2018-04-27 06:52 | Outpatient (CLI) | payer MEDICAID, SELFPAY ==
[2018-04-13 13:03] VITALS: BMI 22.6
[2018-04-27] VITALS (7 sets, daily range): BP systolic 79–108; BP diastolic 40–81; PULSE 70–84; RESP 16–18; TEMP 36.1–36.8; O2SAT 94–100; BMI 22.4
--- NOTE | 2018-04-27 06:54 | CT_ITS ---
STUDY: CT CHEST WITHOUT CONTRAST REASON FOR EXAM: Female, 57 years old. The patient was scheduled for a CT-guided biopsy of the right lower lobe density. RADIATION DOSAGE (If Supplied By Facility): CTDIvol = ( 12.46 ) mGy, DLP = ( 378.29 ) mGycm TECHNIQUE: Transaxial imaging was performed without the administration of intravenous contrast material. Individualized dose optimization techniques were used for this CT. COMPARISON: Comparison is made with prior study dated March 10, 2018 and February 08, 2018. FINDINGS: The previously seen nodular density in the posterior medial segment of the right lower lobe has almost completely resolved. A linear density persists and most likely represents scarring. The biopsy was not performed. There are calcifications of the coronary arteries. Normal mediastinum. Normal hilar regions. Normal unenhanced pulmonary arteries. There is atherosclerotic calcification of the aortic arch with tortuosity and elongation of the aortic arch and descending thoracic aorta. There are multi-level degenerative changes of the thoracic spine. Ascites. CT/Chest without Contrast IMPRESSION: The biopsy of the right lower lobe nodule was not performed due to the decreased size of the nodule. At the site of nodule, there is linear density suggestive scarring. Electronically Signed: Hernandez Eli MD at 15:38 EST Tel [phone], Service support ,
--- NOTE | 2018-04-27 11:33 | NURSING ---
PATIENT TAKEN TO RADIOLOGY BY RN WITH 2ND UNIT OF [facility] STILL INFUSING.
--- OUTSIDE RECORDS SUMMARY | 2018-06-13 02:16 | XMS RPT_ITS ---
:1960 Author Organization OHIP Support Name Relationship Address Phone YAEL MATTHEWSA Unavailable Unavailable + GIBSONIAANJELICACECIL Unavailable [address] + [place] [address] GIBSONIA, CECIL Unavailable Unavailable + GIBSONIA, CECIL Unavailable [address] + [place] [address] GIBSONIA, CECIL Unavailable [address] + [place] [address] UE Unavailable Unavailable Unavailable BYRON, CECIL Unavailable [address] + [place] [address] UE Unavailable Unavailable Unavailable BYRON, CECIL Unavailable [address] + [place] [address] UE Unavailable Unavailable Unavailable BYRON, CECIL Unavailable [address] + [place] [address] UE Unavailable Unavailable Unavailable BYRON, CECIL Unavailable [address] + [place] [address] UE Unavailable Unavailable Unavailable BYRON, CECIL Unavailable Unavailable + GIBSONIA, CECIL Unavailable [address] + [place] [address] BYRON, CECIL Unavailable Unavailable + BYRON, CECIL Unavailable [address] + [place] [address] BYRON, CECIL Unavailable Unavailable + BYRON, CECIL Unavailable [address] + [place] [address] BYRON, CECIL Unavailable Unavailable + BYRON, CECIL Unavailable [address] + [place] [address] BYRON, CECIL Unavailable [address] + [place] [address] UE Unavailable Unavailable Unavailable BYRON, CECIL Unavailable Unavailable + BYRON, CECIL Unavailable [address] + [place] [address] BYRON, CECIL Unavailable [address] + [place] [address] UE Unavailable Unavailable Unavailable BYRON, CECIL Unavailable [address] + [place] [address] UE Unavailable Unavailable Unavailable BYRON, CECIL Unavailable Unavailable + BYRON, CECIL Unavailable [address] + [place] [address] BYRON, CECIL Unavailable [address] + [place] [address] UE Unavailable Unavailable Unavailable BYRON, CECIL Unavailable Unavailable + BYRON, CECIL Unavailable [address] + [place] [address] BYRON, CECIL Unavailable [address] + [place] [address] UE Unavailable Unavailable Unavailable BYRON, CECIL Unavailable Unavailable + BYRON, CECIL Unavailable [address] + [place] [address] BYRON, CECIL Unavailable Unavailable + BYRON, CECIL Unavailable [address] + [place] [address] BYRON, CECIL Unavailable [address] + [place] [address] UE Unavailable Unavailable Unavailable BYRON, CECIL Unavailable [address] + [place] [address] UE Unavailable Unavailable Unavailable BYRON, CECIL Unavailable Unavailable + BYRON, CECIL Unavailable [address] + [place] [address] BYRON, CECIL Unavailable Unavailable + BYRON, CECIL Unavailable [address] + [place] [address] BYRON, CECIL Unavailable [address] + [place] [address] UE Unavailable Unavailable Unavailable BYRON, CECIL Unavailable [address] + [place] [address] UE Unavailable Unavailable Unavailable BYRON, CECIL Unavailable [address] + [place] [address] UE Unavailable Unavailable Unavailable BYRON, CECIL Unavailable Unavailable + BYRON, CECIL Unavailable [address] + [place] [address] BYRON, CECIL Unavailable [address] + [place] [address] UE Unavailable Unavailable Unavailable BYRON, CECIL Unavailable Unavailable + BYRON, CECIL Unavailable [address] + [place] [address] BYRON, CECIL Unavailable [address] + [place] [address] UE Unavailable Unavailable Unavailable BYRON, CECIL Unavailable Unavailable + BYRON, CECIL Unavailable [address] + [place] [address] BYRON, CECIL Unavailable Unavailable + BYRON, CECIL Unavailable [address] + [place] [address] BYRON, CECIL Unavailable [address] + [place] [address] UE Unavailable Unavailable Unavailable BYRON, CECIL Unavailable Unavailable + BYRON, CECIL Unavailable [address] + [place] [address] BYRON, CECIL Unavailable Unavailable + BYRON, CECIL Unavailable [address] + [place] [address] BYRON, CECIL Unavailable Unavailable + BYRON, CECIL Unavailable [address] + [place] [address] BYRON, CECIL Unavailable [address] + [place] [address] GIBSONIA, CECIL Unavailable [address] + [place] [address] BYRON, CECIL Unavailable Unavailable + BYRON, CECIL Unavailable [address] + [place] [address] BYRON, CECIL Unavailable [address] + [place] [address] BYRON, CECIL Unavailable Unavailable + BYRON, CECIL [...] Unavailable CLARENCE SHAIKH MD Attending Unavailable YOSHI MULLINS MD Consulting Unavailable CLARENCE SHAIKH MD Consulting Unavailable CLARENCE SHAIKH MD Attending Unavailable PHYSICIAN, NONE Primary Care Unavailable CLARENCE SHAIKH MD Attending Unavailable CLARENCE SHAIKH MD Primary Care Unavailable REFERRING REFERRING, PHY PHY WO [phone] Primary Care Unavailable ARIAN DUNHAM, DR. SHEILA Gamino Attending Unavailable RIK SIMENTAL Attending Unavailable REFERRING REFERRING, PHY PHY WO [phone] Primary Care Unavailable CLARENCE SHAIKH MD Primary [...] RAMIREZ MD. JOYCE Rodriguez Attending Unavailable SWIHART HARDWOOD SAWYER, KD L Primary Care Unavailable YOSHI MULLINS MD Attending Unavailable SWIHART HARDWOOD SAWYER, KD L Primary Care Unavailable YOSHI MULLINS MD Attending Unavailable SWIHART HARDWOOD SAWYER, KD L Primary Care Unavailable YOSHI MULLINS MD Attending Unavailable SWIHART HARDWOOD SAWYER, KD L Primary Care Unavailable YOSHI MULLINS MD Attending Unavailable SWIHART HARDWOOD SAWYER, KD L Primary Care Unavailable YOSHI MULLINS MD Attending Unavailable SWIHART HARDWOOD SAWYER, KD L Primary Care Unavailable YOSHI MULLINS MD Attending Unavailable SWIHART HARDWOOD SAWYER, KD L Primary Care Unavailable YOSHI MULLINS MD Attending Unavailable SWIHART HARDWOOD SAWYER, KD L Primary Care Unavailable YOSHI MULLINS MD Attending Unavailable SWIHART HARDWOOD SAWYER, KD L Primary Care Unavailable YOSHI MULLINS MD Attending Unavailable SWIHART HARDWOOD SAWYER, KD L Primary Care Unavailable YOSHI MULLINS MD Attending Unavailable SWIHART HARDWOOD SAWYER, KD L Primary Care Unavailable YOSHI MULLINS MD Attending Unavailable SWIHART HARDWOOD SAWYER, KD L Primary Care Unavailable YOSHI MULLINS MD Attending Unavailable SWIHART HARDWOOD SAWYER, KD L Primary Care Unavailable YOSHI MULLINS MD Attending Unavailable SWIHART HARDWOOD SAWYER, KD L Primary Care Unavailable YOSHI MULLINS MD Attending Unavailable SWIHART HARDWOOD SAWYER, KD L Primary Care Unavailable YOSHI MULLINS MD Attending Unavailable SWIHART HARDWOOD SAWYER, KD L Primary Care Unavailable YOSHI MULLINS MD Attending Unavailable SWIHART HARDWOOD SAWYER, KD L Primary Care Unavailable YOSHI MULLINS MD Attending Unavailable SWIHART HARDWOOD SAWYER, KD L Primary Care Unavailable YOSHI MULLINS MD Attending Unavailable SWIHART HARDWOOD SAWYER, KD L Primary Care Unavailable YOSHI MULLINS MD Attending Unavailable SWIHART HARDWOOD SAWYER, KD L Primary Care Unavailable YOSHI MULLINS MD Attending Unavailable SWIHART HARDWOOD SAWYER, KD L Primary Care Unavailable YOSHI MULLINS MD Attending Unavailable SWIHART HARDWOOD SAWYER, KD L Primary Care Unavailable YOSHI MULLINS [...] Consulting Unavailable Kd Huff Attending Unavailable [place] FRAME TABLE OPERATOR HELPER, Kd Referring Unavailable CLINIC, VIOLA STARTZMAN FREE [...] 04/27/2018 Unknown R91.8 - Other Jenkins, Active [place] nonspecific [facility] abnormal finding of Hospital lung field / Repository R91.8(ICD-10) 04/29/2018 Unknown J44.9 - Chronic Israel Gonzalez, Active [place] obstructive [facility] pulmonary disease, Hospital unspecified / Repository J44.9(ICD-10) 03/09/2018 Unknown F17.210 - Nicotine Israel Gonzalez, Active [place] dependence, [facility], Hospital uncomplicated / Repository F17.210(ICD-10) 03/01/2018 Unknown R93.89 - Abnormal Israel Gonzalez, Active [place] findings on [facility] of other specified Repository body structures / R93.89(ICD-10) 03/28/2018 Unknown Z12.31 - Encounter Kayla ALEXANDRA, Active [place] for screening [facility] mammogram for [facility] malignant neoplasm Repository of breast / Z12.31(ICD-10) PROCEDURES PROCEDURES No Procedure Records FoundRESULTS RESULTS EMERGENCY DEPARTMENT Observed: 06/06/2018 Status: F Source: [place] SUMMARY 9:22 PM [facility] REPOSITORY [facility] Medical Records Department [address] [place] [address] Emergency Department Summary 05/31/18 1453 MR#: [id number] Acct: [id number] Name: KEYLA MATTHEWS Rep #: [id number] : 1960 58 From: Evelyn Fuentes MD PCP: [facility] Status: DIS IN - ER Visit Summary [...] kidney disease This note was generated with Snap Trends dictation software. It may contain incorrect words, [...] problems, contact your Primary Care Provider. Call [facility] ([phone]) or report to the closest Emergency Room. Call 911 if necessary. 06/06/182121 <Electronically signed by Evelyn Fuentes MD> Date Evelyn Fuentes MD Cosigner Signature (If Indicated): Date CC: [facility] DISCHARGE SUMMARY Observed: 06/03/2018 Status: F Source: [place] 5:28 PM [facility] REPOSITORY [facility] Medical Records Department [address] [place] [address] Discharge Summary 06/03/18 1138 MR#: [id number] Acct: [id number] Name: KEYLA MATTHEWS Rep #: [id number] : 1960 58 From: Isai Brown MD PCP: [facility] Status: DIS IN Y [id number] Discharge Date and Diagnosis Date of Admission: [...] got better. 1. Possible SBP, status post eieneylcpdkl-tcrvudtuqb-oznlpf paracentesis 06/01/2018 with removal of 2810 mL. Patient receives weekly paracentesis at [facility]. CT of abdomen on admission showed a [...] creatinine. Patient needs to be read by paint and table edger. Patient might need need to be evaluated by paint and table edger and consider Zaroxolyn. With creatinine clearance of [...] 05/31/18 Tiotropium Br/Olodaterol HCl [Stiolto Respimat Inhal [place]] 2 puff INHALATION BID 05/31/18 Ciprofloxacin [Cipro] 250 mg PO BID #4 tablet 06/03/18 Following Prescrptions Were Given to Patient: Ciprofloxacin [Cipro] 250 mg PO BID #4 tablet Primary Care Physician: [facility] Melinda,Stuart Green [Primary Care Provider] - Please [...] applicable Code Visit Inpatient E AND M: 61379 Disch Hosp 06/03/18 1728 <Electronically signed by Isai Brown MD> Date Isai Brown MD Cosigner Signature (if applicable): Date CC: Isai Brown MD; [facility] Signed DISCHARGE INSTRUCTION Observed: 06/03/2018 Status: F Source: [place] 11:38 AM [facility] REPOSITORY [facility] Medical Records Department [address] [place] [address] Instructions for Home/Discharge Instructions 06/03/18 1047 MR#: [id number] Acct: [id number] Name: KEYLA MATTHEWS Rep #: [id number] : 1960 58 From: Isai Brown MD [...] 05/31/18 Tiotropium Br/Olodaterol HCl [Stiolto Respimat Inhal [place]] 2 puff INHALATION BID 05/31/18 Ciprofloxacin [Cipro] 250 mg PO BID #4 tablet 06/03/18 The following prescriptions were given: Ciprofloxacin [Cipro] 250 mg PO BID #4 tablet Primary Care Physician: Stuart Worrell [Primary Care Provider] - Please follow up [...] Date Isai Brown MD CC: [facility] Signed CBC-COMPLETE BLOOD CNT Collected: 06/03/2018 Status: F Source: [place] NO DIFF 6:49 AM [facility] REPOSITORY TYPE CODE TESTS RESULT OUT [...] MPV 10.2 Performed By: #### L100.0500 #### [facility] [address] [place], [place] [address], [address] BASIC METABOLIC Collected: 06/03/2018 Status: F Source: [place] PROFILE (BMP) 6:49 AM [facility] REPOSITORY TYPE CODE TESTS RESULT OUT [...] GAP 12 Performed By: #### L500.2500 #### [facility] [address] [facility] [place], [address] 12 LEAD ELECTROCARDIOGRAM Observed: 06/02/2018 Status: F Source: [place] 3:42 PM [facility] REPOSITORY [facility] Cardiovascular Services [address] [place] [address] 12 Lead EKG 05/31/18 1507 MR#: [id number] Acct: [id number] Name: KEYLA MATTHEWS Rep #: [id number] : 1960 58 From: Mario Benson MD [facility]: [facility] IN Ordering Dr: Evelyn Fuentes [...] Borderline ECG Confirmed by SARAVANAN BABCOCK, MARIO ([id number]), assignment desk editor MIGUEL FERNANDES ([id number]) on 06/02/2018 3:41:46 PM Referred By: José Miranda Confirmed By:MARIO BENSON MD 06/02/18 9313 Date Mario Benson MD CC: José Miranda; Evelyn Fuentes MD; Isai Brown MD; [facility] Signed BODY FLUID CELL Collected: 06/01/2018 Status: C Source: [place] COUNT+DIFF 2:45 PM [facility] REPOSITORY Order Comment: The reference range [...] COMMENT Normal Performed By: #### L200.0200 #### [facility] [place], [address] Observed: 06/01/2018 Status: F Source: [place] CULTURE, BODY FLUID 2:45 PM [facility] REPOSITORY RESULTS CALLED TO SANAZ FERNANDES 06/01/18 1849 Marshall Patel. REPORT READ BACK BY SANAZ. Gram Stain Centrifuged Specimen? Culture performed on centrifuged specimen Gram Stain Red Blood Cells 4+ 3+ Gram positive cocci 2+ White Blood Cells 1+ Epithelial cells Body Fluid Cult Culture exhibits no growth. Cult, Anaerobic No growth in 5 days. Performed By: #### M100.1300 #### [facility] [address] [place], [address] CYTOLOGY, BODY FLUID / Collected: 06/01/2018 Status: F Source: [place] CSF 2:45 PM [facility] REPOSITORY TYPE CODE TESTS RESULT OUT OF RANGE REFERENCE UNITS LAB L350.1000 SEE Normal PATHOLOGY CYTOLOGY,BF REPORT /CSF Result Comment: Specimen submitted to Anatomical Pathology Department for testing. Performed By: #### L350.1000 #### [facility] [address] [place], [address] ECHOCARDIOGRAM COMPLETE Observed: 06/01/2018 Status: F Source: [place] 1:37 PM [facility] REPOSITORY [facility] Cardiovascular Services [address] [place] [address] Echo Complete 06/01/18 1009 MR#: [id number] Acct: [id number] Name: KEYLA MATTHEWS Rep #: [id number] : 1960 58 From: Juan Antonio James MD [facility]: ADM IN Ordering Dr: José Miranda [...] Ordering Physician: José Miranda Referring Physician: [facility] Performed By: Kriss Weir, JULIAN, RVT 06/01/18 1336 Date Juan Antonio James MD CC: José Miranda; Isai Brown MD; [facility] Date Dictated: 06/01/18 1009 Date Transcribed: 06/01/18 133 Floor Finisher Helper: Signed ABO RH BLOOD TYPE, Collected: 06/01/2018 Status: F Source: [place] PATIENT 8:50 AM [facility] REPOSITORY Order Comment: Number of units to be transfused: 1 When is Plasma to be Transfused? 0840 TYPE CODE TESTS RESULT OUT OF RANGE REFERENCE UNITS LAB B10.0800 A Normal BLOOD POSITIVE TYPE GEL Performed By: #### B10.0010 #### [facility] [address] [place], [address] FFP Collected: 06/01/2018 Status: F Source: [place] 8:50 AM [facility] REPOSITORY TYPE CODE TESTS RESULT OUT OF REFERENCE UNITS RANGE LAB U100.0900 [id number] TRANSFUSED PRODUCT: Fresh Frozen Plasma COUNT: 1 Performed By: #### U100.0900 #### [facility] - refer to report for specific site FFP Collected: 06/01/2018 Status: F Source: [place] 8:50 AM [facility] REPOSITORY TYPE CODE TESTS RESULT OUT OF REFERENCE UNITS RANGE LAB U100.0900 [id number] TRANSFUSED PRODUCT: Fresh Frozen Plasma COUNT: 1 Performed By: #### U100.0900 #### [facility] - refer to report for specific site TYPE AND SCREEN Collected: 06/01/2018 Status: F Source: [place] 8:50 AM [facility] REPOSITORY Order Comment: CMV NEG? N [...] NEGATIVE Screen Performed By: #### B101.7450 #### [facility] [address] [place], [address] RC Collected: 06/01/2018 Status: F Source: [place] 8:50 AM [facility] REPOSITORY TYPE CODE TESTS RESULT OUT OF REFERENCE UNITS RANGE LAB U100.0000 [id number] TRANSFUSED PRODUCT: T AND S with Crossmatch, Red Cells COUNT: 1 Performed By: #### U100.0000 #### [facility] - refer to report for specific site COMPREHENSIVE METABOLIC Collected: 06/01/2018 Status: F [facility] REPOSITORY TYPE CODE TESTS RESULT OUT [...] GAP 12 Performed By: #### L500.4050 #### [facility] [address] [place], [address] CBC W/DIFF, AUTOMATED Collected: 06/01/2018 Status: F Source: [place] 6:15 AM [facility] REPOSITORY TYPE CODE TESTS RESULT OUT [...] Lymph 1.56 Performed By: #### L100.0100 #### [facility] [address] [facility] [place], [address] PROTHROMBIN TIME W/INR Collected: 06/01/2018 Status: F Source: [place] 6:15 AM [facility] REPOSITORY TYPE CODE TESTS RESULT OUT OF RANGE REFERENCE UNITS LAB L300.4150 11.7-14.9 SECONDS High PROTIME 21.5 LAB L300.4200 Normal INR 1.9 Performed By: #### L300.3900 #### [facility] [address] [place], [address] FLUID/WASHING Observed: 06/01/2018 Status: F Source: [place] 12:00 AM [facility] REPOSITORY Patient: KEYLA MATTHEWS : 1960 (58/F) Acct Num: [id number] Phys: Kevin BABCOCK,[facility] Unit Num: [id number] Loc: PCU [id number] Specimen: [id number] Received: 06/01/18 - 1522 Spec Type: Fluid TISSUES 1 TISSUES: PARACENTESIS FLUID CYTOLOGY GROSS Received is 50 ml of clear yellow fluid labeled with the patient's name and and designated per the requisition as paracentesis. Submitted for cytology preparation including cell block. / 06/02/18 TC:5 CPT: 44473, 91198 CYTOLOGY STUDY Slides are reviewed. DIAGNOSIS CYTOLOGY Paracentesis fluid for cytology (cytospin and cell block): Negative for malignant cells. AM: 06/03/18 HEADER OPERATION: Ultrasound-guided right paracentesis PRE-OP DIAGNOSIS: Ascites TISSUE SUBMITTED: Paracentesis fluid for cytology Signed Sahil Shannon, DO 06/03/18 <signature on file> Performed By: #### PFLU #### [facility] [address] [place], [address] TROPONIN-I Collected: 05/31/2018 Status: F Source: [place] 9:05 PM [facility] REPOSITORY Order Comment: 'TROP' Serial specimen #1, #2 or #3: 3 TYPE CODE TESTS RESULT OUT OF RANGE REFERENCE UNITS LAB L501.4010 <0.045 ng/mL Normal 0.042 TROPONIN-I Result Comment: TROPONIN-I EXPECTED VALUES <0.045 Negative 0.045 - 0.590 Consistent with Cardiac Damage > OR = 0.600 Critical Value Not every elevated troponin is indicative of PR. These values should be used with clinical judgement in examining the patient's clinical picture for diagnosis. To establish a diagnosis of PR versus myocardial injury, there must be a demonstrated rise and/or fall in the troponin values, in addition to ischemic symptoms, EKG changes, new regional wall motion abnormality, and/or angiographical evidence. PLEASE NOTE: REFERENCE RANGES EDITED 17 Performed By: #### L501.4010 #### [facility] [address] [place], [address] HISTORY AND PHYSICAL Observed: 05/31/2018 Status: F Source: [place] EXAM 7:00 PM [facility] REPOSITORY [facility] Medical Records Department [address] [place] [address] History and Physical 05/31/18 1834 MR#: [id number] Acct: [id number] Name: KEYLA MATTHEWS Rep #: [id number] : 1960 58 From: José Miranda MD PCP: [facility] Status: ADM IN Y Location: [place] [address] Problem List (1) Anemia Status: Acute (2) [...] noncontributory Psychiatric History: No pertinent psych hx OPERATOR CONTROL ROOM History: No pertinent OPERATOR CONTROL ROOM history Lives: With Family Smoking Status: Current [...] Problems (Last Reviewed 05/04/18 @ 13:46 by Tasai Jenkins, LAURA-Neva) Anemia (Acute) Renal failure (Acute) [...] Subcu heparin. This note was generated with Snap Trends dictation software. It may contain incorrect words, spelling, and punctuation that were not noted in checking the note before signing. Code Visit Inpatient E AND M: 11514 Init Hosp L3 05/31/18 1900 <Electronically signed by José Miranda MD> Date José Miranda MD Cosigner Signature: Date (if applicable) CC: José Miranda; [facility] Signed AMMONIA Collected: 05/31/2018 Status: F Source: [place] 6:44 PM [facility] REPOSITORY TYPE CODE TESTS RESULT OUT OF REFERENCE UNITS RANGE LAB L503.5510 11-32 umol/L High AMMONIA 36.0 Performed By: #### L503.5510 #### [facility] [address] [place], [address] PARACENTESIS WITH US Observed: 05/31/2018 Status: F Source: [place] 6:22 PM [facility] REPOSITORY [facility] Imaging Services [address] [place] [address] Paracentesis with US MR#: [id number] Acct: [id number] Name: KEYLA MATTHEWS Rep #: [id number] : 1960 F 58 From: Hernandez Eli MD PCP: [facility] Status: ADM IN Study: Paracentesis with US Date of Exam: 06/01/18 Exam# [id number] Ordering Dr: José Miranda MD PROCEDURE: Ultrasound [...] the peritoneal cavity was accessed with a 5-Filipino paracentesis needle/catheter system. The trocar was removed. A total of 2810 ml of brad-colored fluid were removed from the peritoneal cavity. A 110 mL sample was sent to the laboratory. The catheter was removed and a sterile dressing was applied. The procedure was well tolerated. US/Paracentesis with US IMPRESSION: Ultrasound guided paracentesis. Electronically Signed: Hernandez Eli MD at 15:36 EST Tel [phone], Service support , CC: José Miranda; [facility] Floor Finisher Helper: Signed BODY FLUID CELL Collected: 05/31/2018 Status: C Source: [place] COUNT+DIFF 4:50 PM [facility] REPOSITORY Order Comment: Order Date: 05/31/18 [...] 70 Performed By: #### L200.0200, L200.3350 #### [facility] [address] [place], [address] SPECIFIC GRAVITY, Collected: 05/31/2018 Status: F Source: [place] BODY FLUID 4:50 PM [facility] REPOSITORY Order Comment: Order Date: 05/31/18 [...] FLD Performed By: #### L200.0200, L200.3350 #### [facility] [address] [place], [address] GLUCOSE, BODY FLUID Collected: 05/31/2018 Status: F Source: [place] 4:50 PM [facility] REPOSITORY TYPE CODE TESTS RESULT OUT OF RANGE REFERENCE UNITS LAB L503.0100 40-70 mg/dL High GLU,BF 109 Performed By: #### L503.0100, L503.0300, L504.0250 #### [facility] [address] [place], [address] PROTEIN, BODY FLUID Collected: 05/31/2018 Status: F Source: [place] 4:50 PM [facility] REPOSITORY TYPE CODE TESTS RESULT OUT OF RANGE REFERENCE UNITS LAB L503.0300 Not Establ. g/dL Normal 1.7 PROTEIN,BF Performed By: #### L503.0100, L503.0300, L504.0250 #### [facility] [address] [place], [address] LDH,BODY FLUID Collected: 05/31/2018 Status: F Source: [place] 4:50 PM [facility] REPOSITORY TYPE CODE TESTS RESULT OUT OF RANGE REFERENCE UNITS LAB L504.0250 Not Establ. Units/l Normal LDH,BF 69 Performed By: #### L503.0100, L503.0300, L504.0250 #### [facility] [address] [place], [address] Observed: 05/31/2018 Status: F Source: [place] CULTURE, BODY FLUID 4:50 PM [facility] REPOSITORY Order Date: 05/31/18 Has pt arrived? Y Gram Stain Centrifuged Specimen? Culture performed on centrifuged specimen Gram Stain 3+ Red Cell Stroma 2+ Red Blood Cells Rare White Blood Cells No organisms seen Body Fluid Cult Culture exhibits no growth. Cult, Anaerobic No growth in 5 days. Performed By: #### M100.1300 #### [facility] [address] [place], [address] CYTOLOGY, BODY FLUID / Collected: 05/31/2018 Status: F Source: [place] CSF 4:50 PM [facility] REPOSITORY Order Comment: Order Date: 05/31/18 Has pt arrived? Y TYPE CODE TESTS RESULT OUT OF RANGE REFERENCE UNITS LAB L350.1000 SEE Normal PATHOLOGY CYTOLOGY,BF REPORT /CSF Result Comment: Specimen submitted to Anatomical Pathology Department for testing. Performed By: #### L350.1000 #### [facility] [facility] [address] [place], [address] AMYLASE BODY FLUID Collected: 05/31/2018 Status: F Source: [place] 4:50 PM [facility] REPOSITORY Order Comment: Specimen Source: FLUID TYPE CODE TESTS RESULT OUT OF RANGE REFERENCE UNITS LAB L3800.0050 . U/L Normal LORRI,BF 22 [id number] Result Comment: : Peritoneal : Pleural : [...] context for interpretation. Performed at: - [facility] [address] [id number] Laboratory Administrative Director: Mk Donovan PhD, Phone: [phone] Performed By: #### L3800.0050 #### [facility] (refer to report for specific site) refer to report for address and phone number FLUID/WASHING Observed: 05/31/2018 Status: F Source: [place] 4:45 PM [facility] REPOSITORY Patient: KEYLA MATTHEWS : 1960 (58/F) Acct Num: [id number] Phys: Kevin BABCOCK,[facility] Unit Num: [id number] Loc: [facility] [id number] Specimen: [id number] Received: 06/01/18 - 1213 Spec Type: Fluid TISSUES 1 TISSUES: PARACENTESIS FLUID CYTOLOGY GROSS Received is 2 ml of clear yellow fluid labeled with the patient's name and and designated per the requisition as paracentesis. Submitted for cytology preparation including cell block. / 06/01/18 TC:5 CPT: 01547, 41737 CYTOLOGY STUDY Slides are reviewed. DIAGNOSIS CYTOLOGY Paracentesis fluid for cytology (cytospin and cell block): Negative for malignant cells. AM:amauri 06/02/18 HEADER OPERATION: Paracentesis PRE-OP DIAGNOSIS: Ascites TISSUE SUBMITTED: Paracentesis fluid for cytology Signed Sahil Shannon DO 06/02/18 <signature on file> Performed By: #### PFLU #### [facility] [facility] [address] [place], [address] CBC W/DIFF, AUTOMATED Collected: 05/31/2018 Status: F Source: [place] 3:20 PM [facility] REPOSITORY TYPE CODE TESTS RESULT OUT [...] Lymph 1.85 Performed By: #### L100.0100 #### [facility] [address] [place], [place], [id number] COMPREHENSIVE METABOLIC Collected: 05/31/2018 Status: F Source: [place] ELIZONDO 3:20 PM [facility] REPOSITORY TYPE CODE TESTS RESULT OUT [...] Performed By: #### L500.4050, L501.2450, L501.4010 #### [facility] [address] [place], [address] LIPASE Collected: 05/31/2018 Status: F Source: [place] 3:20 PM [facility] REPOSITORY TYPE CODE TESTS RESULT OUT OF RANGE REFERENCE UNITS LAB L501.2450 73-393 U/L Normal LIPASE 257 Performed By: #### L500.4050, L501.2450, L501.4010 #### [facility] [address] [place], [address] TROPONIN-I Collected: 05/31/2018 Status: F Source: [place] 3:20 PM [facility] REPOSITORY TYPE CODE TESTS RESULT OUT OF RANGE REFERENCE UNITS LAB L501.4010 <0.045 ng/mL High 0.048 TROPONIN-I Result Comment: TROPONIN-I EXPECTED VALUES <0.045 Negative 0.045 - 0.590 Consistent with Cardiac Damage > OR = 0.600 Critical Value Not every elevated troponin is indicative of PR. These values should be used with clinical judgement in examining the patient's clinical picture for diagnosis. To establish a diagnosis of PR versus myocardial injury, there must be a demonstrated rise and/or fall in the troponin values, in addition to ischemic symptoms, EKG changes, new regional wall motion abnormality, and/or angiographical evidence. PLEASE NOTE: REFERENCE RANGES EDITED 17 Performed By: #### L500.4050, L501.2450, L501.4010 #### [facility] [address] [place], [address] PROTHROMBIN TIME W/INR Collected: 05/31/2018 Status: F Source: [place] 3:20 PM [facility] REPOSITORY TYPE CODE TESTS RESULT OUT OF RANGE REFERENCE UNITS LAB L300.4150 11.7-14.9 SECONDS High PROTIME 20.8 LAB L300.4200 Normal INR 1.8 Performed By: #### L300.3900, L300.4310 #### [facility] [address] [place], [address] PARTIAL THROMBOPLAST Collected: 05/31/2018 Status: F Source: [place] TIME 3:20 PM [facility] REPOSITORY TYPE CODE TESTS RESULT OUT OF RANGE REFERENCE UNITS LAB L300.4310 24.1-36.2 Seconds Normal PTT 35.0 Performed By: #### L300.3900, L300.4310 #### [facility] [address] [place], [address] Observed: 05/31/2018 Status: F Source: [place] STOOL OCCULT BLOOD 3:20 PM [facility] REPOSITORY Order Date: 05/31/18 Has pt arrived? Y STOB iFOB Occult Blood Positive ORGANISM 1: OCCULT BLOOD POSITIVE Performed By: #### M100.7900 #### [facility] [address] [place], [address] ABDOMEN/PELVIS WITHOUT Observed: 05/31/2018 Status: F Source: [place] CONT 2:53 PM [facility] REPOSITORY [facility] Imaging Services [address] [place] [address] Abdomen/Pelvis without Cont MR#: [id number] Acct: [id number] Name: KEYLA MATTHEWS Rep #: [id number] : 1960 F 58 From: Eduar Gill MD PCP: [facility] Status: REG ER Study: Abdomen/Pelvis without Cont Date of Exam: 05/31/18 Exam# [id number] Ordering Dr: Evelyn Fuentes MD STUDY: CT [...] , CC: Evelyn Fuentes MD; [facility] Floor Finisher Helper: Signed US DRAINAGE PERITONEAL Observed: 05/27/2018 Status: F Source: [place] [employer] 10:00 AM [facility] REPOSITORY ORIGINAL ULTRASOUND GUIDED PARACENTESIS: Therapeutic CLINICAL STATEMENT: Ascites DRAINAGE/PUNCTURE SITE: RIGHT upper abdomen QUANTITY OF FLUID REMOVED: 5500 mL CHARACTERISTICS OF FLUID: Yellow serous DISPOSITION OF FLUID: Discarded The paracentesis was performed in the usual fashion. The procedure was successful with minimal patient discomfort. No post-procedural complications were identified. IMPRESSION: Successful ultrasound-guided paracentesis. The procedure was performed by Catalina Soto, Physician Steel Layer. I concur with the contents of the report. Interpreted By: April Craft MD Preliminary Report By: Catalina Soto Electronically Signed By: April Craft MD Dictated Date: 05/27/2018 4:07:22 PM Prelim Date: 05/27/2018 4:07:33 PM Sign Date: 05/27/2018 4:29:42 PM US DRAINAGE PERITONEAL Observed: 05/20/2018 Status: F Source: [place] [employer] 9:00 AM [facility] REPOSITORY ORIGINAL ULTRASOUND GUIDED PARACENTESIS: Therapeutic CLINICAL STATEMENT: Ascites DRAINAGE/PUNCTURE SITE: RIGHT upper abdomen QUANTITY OF FLUID REMOVED: 5600 mL CHARACTERISTICS OF FLUID: Yellow serous DISPOSITION OF FLUID: Discarded The paracentesis was performed in the usual fashion. The procedure was successful with minimal patient discomfort. No post-procedural complications were identified. IMPRESSION: Successful ultrasound-guided paracentesis. The procedure was performed by Catalina Soto, Physician Steel Layer. I concur with the contents of the report. Interpreted By: Tray Storm MD Preliminary Report By: Catalina Soto Electronically Signed By: Tray Storm MD Dictated Date: 05/20/2018 11:22:04 AM Prelim Date: 05/20/2018 11:22:15 AM Sign Date: 05/20/2018 11:37:39 AM US DRAINAGE PERITONEAL Observed: 05/11/2018 Status: F Source: [facility] 11:00 AM [facility] ORIGINAL ULTRASOUND GUIDED PARACENTESIS CLINICAL STATEMENT: Patient [...] VISIT REPORT Observed: 05/04/2018 Status: F Source: [place] 1:51 PM [facility] REPOSITORY [facility] [address] [place] [address] OFFICE VISIT Date of Service: 05/04/18 MR#: [id number] Acct: [id number] Name: KEYLA MATTHEWS Rep #: [id number] : 1960 Provider: Tasia Jenkins Age/Sex: 58/F [place] [facility] [place] Status: Signed Assessment AND [...] Signature: Date (if applicable) CC: [facility] US DRAINAGE PERITONEAL Observed: 05/02/2018 Status: F Source: [facility] 11:00 AM [facility] REPOSITORY ORIGINAL [...] procedure was performed by Catalina Soto, Physician Steel Layer. I concur with the contents of the report. Interpreted By: Sanaz Piña DO Preliminary Report By: Catalina Soot PA Electronically Signed By: Sanaz Piña DO Dictated Date: 05/02/2018 4:06:58 PM Prelim Date: 05/02/2018 4:07:09 PM Sign Date: 05/02/2018 4:25:34 PM ABO RH BLOOD TYPE, Collected: 04/27/2018 Status: F Source: [place] PATIENT 7:55 AM [facility] REPOSITORY Order Comment: When is Plasma to be Transfused? 0900 TYPE CODE TESTS RESULT OUT OF RANGE REFERENCE UNITS LAB B10.0800 A Normal BLOOD POSITIVE TYPE GEL Performed By: #### B10.0010 #### [facility] [address] [facility] [place], [address] FFP Collected: 04/27/2018 Status: F Source: [place] 7:55 AM [facility] REPOSITORY TYPE CODE TESTS RESULT OUT OF REFERENCE UNITS RANGE LAB U100.0900 [id number] TRANSFUSED PRODUCT: Fresh Frozen Plasma COUNT: 2 Performed By: #### U100.0900 #### [facility] - refer to report for specific site CHEST WITHOUT Observed: 04/27/2018 Status: F Source: [place] CONTRAST 6:54 AM [facility] REPOSITORY [facility] Imaging Services [address] [place] [address] Chest without Contrast MR#: [id number] Acct: [id number] Name: KEYLA MATTHEWS Rep #: [id number] : 1960 F 57 From: Hernandez Eli MD PCP: [facility] Status: REG CLI Study: Chest without Contrast Date of Exam: 04/27/18 Exam# [id number] Ordering Dr: Tasia Jenkins FLATTENING MACHINE OPERATOR-Neva STUDY: CT CHEST WITHOUT CONTRAST REASON FOR [...] Hernandez Eli MD at 15:38 EST Tel [phone], Service support , CC: Tasia Jenkins; [facility] Floor Finisher Helper: Signed PROTHROMBIN TIME W/INR Collected: 04/26/2018 Status: F Source: [place] 10:01 AM [facility] REPOSITORY TYPE CODE TESTS RESULT OUT OF RANGE REFERENCE UNITS LAB L300.4150 11.7-14.9 SECONDS High PROTIME 19.9 LAB L300.4200 Normal INR 1.7 Performed By: #### L300.3900, L300.4310 #### [facility] [address] [place], [address] PARTIAL THROMBOPLAST Collected: 04/26/2018 Status: F Source: [place] TIME 10:01 AM [facility] REPOSITORY TYPE CODE TESTS RESULT OUT OF REFERENCE UNITS RANGE LAB L300.4310 24.1-36.2 Seconds High PTT 37.9 Performed By: #### L300.3900, L300.4310 #### [facility] [address] [place], [address] US DRAINAGE PERITONEAL Observed: 04/25/2018 Status: F Source: [facility] 10:30 AM [facility] REPOSITORY ORIGINAL ULTRASOUND GUIDED PARACENTESIS CLINICAL [...] 04/20/2018 Status: F Source: [place] 1:22 PM [facility] REPOSITORY TYPE CODE TESTS RESULT OUT OF RANGE REFERENCE UNITS LAB L100.1900 150-450 K/mm3 Normal PLT 200 Performed By: #### L100.1900 #### [facility] [address] [place], [address] PROTHROMBIN TIME W/INR Collected: 04/20/2018 Status: F Source: [place] 1:22 PM [facility] REPOSITORY TYPE CODE TESTS RESULT OUT OF RANGE REFERENCE UNITS LAB L300.4150 11.7-14.9 SECONDS High PROTIME 20.3 LAB L300.4200 Normal INR 1.7 Performed By: #### L300.3900, L300.4310 #### [facility] [address] [place], [address] PARTIAL THROMBOPLAST Collected: 04/20/2018 Status: F Source: [place] TIME 1:22 PM [facility] REPOSITORY TYPE CODE TESTS RESULT OUT OF REFERENCE UNITS RANGE LAB L300.4310 24.1-36.2 Seconds High PTT 39.3 Performed By: #### L300.3900, L300.4310 #### [facility] [address] [place], [address] US DRAINAGE PERITONEAL Observed: 04/18/2018 Status: F Source: [facility] 11:00 AM [facility] REPOSITORY ORIGINAL [...] procedure was performed by Catalina Soto, Physician Steel Layer. I concur with the contents of the report. Interpreted By: Sammy Bowen MD Preliminary Report By: Catalina Soto PA Electronically Signed By: Sammy Bowen MD Dictated Date: 04/18/2018 4:26:59 PM Prelim Date: 04/18/2018 4:27:51 PM Sign Date: 04/18/2018 10:35:18 PM PULMONARY VISIT REPORT Observed: 04/15/2018 Status: F Source: [place] 6:01 PM [facility] REPOSITORY [facility] [place] [address] [place] [address] OFFICE VISIT Date of Service: 04/13/18 MR#: [id number] Acct: [id number] Name: KEYLA MATTHEWS Rep #: [id number] : 1960 Provider: Tasia Jenkins Age/Sex: 57/F [place] [facility] [place] Status: Signed Assessment AND [...] lb Intake Visit Reasons: 6 wk FU Manager Print Required: No Accompanied by: Self Is patient [...] QPM #1 inh 04/13/18 [Rx Confirmed 04/13/18] [facility] Medical History Alcoholic cirrhosis of liver with [...] 04/15/18 1801 <Electronically signed by Tasia Jenkins FLATTENING MACHINE OPERATOR-C> Date Tasia Jenkins FLATTENING MACHINE OPERATOR-C Cosigner Signature: Date (if applicable) [facility] US DRAINAGE PERITONEAL Observed: 04/11/2018 Status: F Source: [place] [employer] 10:30 AM [facility] REPOSITORY ORIGINAL ULTRASOUND GUIDED PARACENTESIS: Therapeutic CLINICAL STATEMENT: Ascites DRAINAGE/PUNCTURE SITE: RIGHT upper abdomen QUANTITY OF FLUID REMOVED: 6000 mL CHARACTERISTICS OF FLUID: Yellow serous DISPOSITION OF FLUID: Discarded The paracentesis was performed in the usual fashion. The procedure was successful with minimal patient discomfort. No post-procedural complications were identified. IMPRESSION: Successful ultrasound-guided paracentesis. The procedure was performed by Catalina Soto, Physician Steel Layer. I concur with the contents of the report. Interpreted By: Sanaz Piña DO Preliminary Report By: Catalina Soto Electronically Signed By: Sanaz Piña DO Dictated Date: 04/11/2018 6:43:19 PM Prelim Date: 04/11/2018 6:43:30 PM Sign Date: 04/11/2018 7:56:50 PM 6 MINUTE WALK TEST Observed: 04/05/2018 Status: F Source: [place] 12:36 PM [facility] REPOSITORY [facility] Pulmonary Services/Neurology [address] [place] [address] MR#: [id number] Acct: [id number] Name: KEYLA MATTHEWS Rep #: [id number] : 1960 57 From: Israel Gonzalez DO Referring Dr: Israel Gonzalez D.O. Date: Ordering Dr: Sex: F C Location: PSN PSN 6 Minute Walk Test - 6 Minute Walk Test 6 Minute Walk Test: 6 Minute Walk Test PSN:6-Minute Walk Test Start: 03/09/18 12:42 Freq: Status: Active Protocol: RESP.6MINW Document 03/09/18 12:42 SFENTON (Rec: 03/09/18 12:46 SFENTON [id number]) 6 Minute Walk Test Date Performed 03/09/18 [...] Date Dictated: 03/10/18 1119 Date Transcribed: 03/10/189 Floor Finisher Helper: Israel Gonzalez DO Signed US DRAINAGE PERITONEAL Observed: 03/29/2018 Status: F Source: [place] [employer] 9:00 AM [facility] REPOSITORY ORIGINAL ULTRASOUND GUIDED PARACENTESIS CLINICAL [...] PULMONARY FUNCTION Observed: 03/25/2018 Status: F Source: [place] TEST 8:24 AM [facility] Pulmonary Services/Neurology [address] [place] [address] MR#: [id number] Acct: [id number] Name: KEYLA MATTHEWS Rep #: [id number] : 1960 57 From: Israel Gonzalez DO [...] Israel Gonzalez DO CC: Israel Gonzalez D.O.; [facility] Date Dictated: 03/25/18821 Date Transcribed: 03/25/18821 Floor Finisher Helper: CAMRYN Signed US DRAINAGE PERITONEAL Observed: 03/18/2018 Status: F Source: [employer] 10:30 AM [facility] REPOSITORY ORIGINAL ULTRASOUND GUIDED PARACENTESIS: Therapeutic CLINICAL STATEMENT: Ascites DRAINAGE/PUNCTURE SITE: RIGHT upper abdomen QUANTITY OF FLUID REMOVED: 5700 mL CHARACTERISTICS OF FLUID: Yellow serous DISPOSITION OF FLUID: Discarded The paracentesis was performed in the usual fashion. The procedure was successful with minimal patient discomfort. No post-procedural complications were identified. IMPRESSION: Successful ultrasound-guided paracentesis. The procedure was performed by Catalina oSto, Physician Steel Layer. I concur with the contents of the report. Interpreted By: Sanaz Piña DO Preliminary Report By: Catalina Soto Electronically Signed By: Sanaz Piña DO Dictated Date: 03/18/2018 4:15:42 PM Prelim Date: 03/18/2018 4:15:51 PM Sign Date: 03/18/2018 9:23:03 PM US DRAINAGE PERITONEAL Observed: 03/11/2018 Status: F Source: [facility] 9:00 AM [facility] REPOSITORY ORIGINAL ULTRASOUND GUIDED PARACENTESIS: Therapeutic [...] procedure was performed by Catalina Soto, Physician Steel Layer. I concur with the contents of the report. Interpreted By: Shant Tucker MD Preliminary Report By: Catalina Soto Electronically Signed By: Shant Tucker MD Dictated Date: 03/11/2018 11:02:08 AM Prelim Date: 03/11/2018 11:02:22 AM Sign Date: 03/11/2018 11:45:47 AM CHEST WITH CONTRAST Observed: 03/10/2018 Status: F Source: [place] 1:21 PM [facility] REPOSITORY [facility] Imaging Services [address] [place] [address] Chest WITH Contrast MR#: [id number] Acct: [id number] Name: KEYLA MATTHEWS Rep #: [id number] : 1960 F 57 From: Joon Rubio MD PCP: [facility] Status: REG CLI Study: Chest WITH Contrast Date of Exam: 03/10/18 Exam# [id number] Ordering Dr: Israel Gonzalez DO STUDY: CT [...] , CC: Israel Gonzalez D.O.; [facility] Floor Finisher Helper: Signed US DRAINAGE PERITONEAL Observed: 03/04/2018 Status: F Source: [employer] 10:00 AM [facility] REPOSITORY ORIGINAL ULTRASOUND GUIDED [...] Ashley Patel PA-C Electronically Signed By: Sammy Bowen MD Dictated Date: 03/04/2018 5:09:05 PM Prelim Date: 03/04/2018 5:10:48 PM Sign Date: 03/05/2018 2:42:53 PM PULMONARY VISIT REPORT Observed: 03/01/2018 Status: F Source: [place] 1:17 PM [facility] REPOSITORY [facility] [address] [place] [address]. [address] [place] [address] OFFICE VISIT Date of Service: 03/01/18 MR#: [id number] Acct: [id number] Name: KEYLA MATTHEWS Rep #: [id number] : 1960 Provider: Israel Gonzalez D.O. Age/Sex: 57/F [place] [facility] [place] Status: Signed Assessment AND Plan 1. Chronic [...] the clinic today in referral from the [facility] for evaluation of COPD. The patient reports a smoking history that includes upwards of 2-3 packs/day x 41 years. However, the patient reports that she has recently cut back to 0.5 packs/day. She also has a long-standing alcohol dependence history with underlying alcohol cirrhosis and recurrent ascites. She has been abstinent from alcohol since September 2017. She currently follows with a is/it project manager in [facility]. 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 She has never [...] Height 5 ft Intake Visit Reasons: COPD Manager Print Required: No Accompanied by: Self Is patient [...] mg PO BID 02/28/18 [History Confirmed 03/01/18] [facility] Medical History Alcoholic cirrhosis of liver with [...] F17.210 03/01/18 1317 <Electronically signed by Israel Gonzalez DO> Date Israel Gonzalez DO Cosigner Signature: Date (if applicable) CC: [facility] US DRAINAGE PERITONEAL Observed: 02/24/2018 Status: F Source: [facility] 10:00 AM [facility] REPOSITORY ORIGINAL ULTRASOUND GUIDED PARACENTESIS CLINICAL [...] The study was performed by the physician social service assistant Teresa Sarabia. I concur with the contents of the report. Interpreted By: Sammy Bowen MD Preliminary Report By: Teresa Sarabia PA-C Electronically Signed By: Sammy Bowen MD Dictated Date: 02/24/2018 12:42:57 PM Prelim Date: 02/24/2018 12:43:35 PM Sign Date: 02/24/2018 4:38:22 PM SCREENING MAMM (CAD), Observed: 02/19/2018 Status: F Source: [place] BIL[place] 8:47 AM [facility] REPOSITORY [facility] Imaging Services [address] [place] [address] SCREENING MAMM (CAD), BILAT MR#: [id number] Acct: [id number] Name: KEYLA MATTHEWS Rep #: [id number] : 1960 F 57 From: Joyce Francisco MD PCP: [facility] Status: REG CLI Study: SCREENING MAMM (CAD), BILAT Date of Exam: 02/19/18 Exam# [id number] Ordering Dr: Stuart Worrell MAMMOGRAPHY - BILATERAL [...] , Service support , CC: [facility] Floor Finisher Helper: Signed US DRAINAGE PERITONEAL Observed: 02/16/2018 Status: F Source: [place] [employer] 9:30 AM [facility] REPOSITORY ORIGINAL ULTRASOUND GUIDED [...] DRAINAGE PERITONEAL Observed: 02/09/2018 Status: F Source: [facility] 9:00 AM [facility] REPOSITORY ORIGINAL ULTRASOUND GUIDED PARACENTESIS CLINICAL [...] Status: F Source: [place] SCREENING 1:15 PM [facility] REPOSITORY [facility] Imaging Services [address] [place] [address] Lung Screening MR#: [id number] Acct: [id number] Name: KEYLA MATTHEWS Rep #: [id number] : 1960 F 57 From: Reggie Molina PCP: [facility] Status: REG CLI Study: Low Dose CT Lung Screening Date of Exam: 02/08/18 Exam# [id number] Ordering Dr: Kd Garza FLATTENING MACHINE OPERATOR-C STUDY: LOW DOSE CT LUNG CANCER SCREENING [...] Reggie Molina DO at 19:40 EDT Tel [phone], Service support , CC: Kd ALEXANDRA; [facility] Floor Finisher Helper: Signed US DRAINAGE PERITONEAL Observed: 01/26/2018 Status: F Source: [place] [employer] 8:30 AM [facility] REPOSITORY ORIGINAL ULTRASOUND GUIDED [...] DRAINAGE PERITONEAL Observed: 01/19/2018 Status: F Source: [facility] 9:30 AM [facility] REPOSITORY ORIGINAL ULTRASOUND GUIDED PARACENTESIS CLINICAL [...] DRAINAGE PERITONEAL Observed: 01/11/2018 Status: F Source: [facility] 11:00 AM [facility] REPOSITORY ORIGINAL ULTRASOUND GUIDED PARACENTESIS CLINICAL [...] ABDOMEN/ABDOMEN DOPPLER Observed: 01/07/2018 Status: F Source: [place] 11:30 AM [facility] REPOSITORY ORIGINAL US ABDOMEN/ABDOMEN DOPPLER CLINICAL INDICATION:ABDOMINAL [...] DRAINAGE PERITONEAL Observed: 01/03/2018 Status: F Source: [facility] 9:30 AM [facility] REPOSITORY ORIGINAL [...] PM CBC Collected: 12/27/2017 Status: F Source: [facility] 4:05 PM [facility] REPOSITORY TYPE CODE TESTS RESULT OUT [...] AHBCOT, PARKER, HBEAG, AHBE, HBVDNU, CMV #### [place] [address] .AUTO DIFF Collected: 12/27/2017 Status: F Source: [facility] 4:05 PM [facility] REPOSITORY TYPE [...] AHBCOT, PARKER, HBEAG, AHBE, HBVDNU, CMV #### [place] [address] .NEUABS Collected: 12/27/2017 Status: F Source: [facility] [address] [place] [address] REPOSITORY TYPE CODE TESTS RESULT OUT OF REFERENCE UNITS RANGE LAB ANEU(LOINC) 2.25-8.10 10 3/mcL High Neutrophil, 11.50 Absolute Performed By: #### CBC, ADIFF, ANEU, AFPS, CMP, GFR, AAT, CERUL, EVELINA, VAMSI, SMUSC, HBSAG, HBSAB, HCV1, EBV, AHAVT, AHBCOT, PARKER, HBEAG, AHBE, HBVDNU, CMV #### [place] [address] AFPS Collected: 12/27/2017 Status: F Source: [facility] [address] [place] [address] REPOSITORY TYPE CODE TESTS RESULT OUT OF REFERENCE UNITS RANGE LAB AFPS(LOINC) 0.0-8.5 ng/mL AFP, Tumor 2.9 Marker Performed By: #### CBC, ADIFF, ANEU, AFPS, CMP, GFR, AAT, CERUL, EVELINA, VAMSI, SMUSC, HBSAG, HBSAB, HCV1, EBV, AHAVT, AHBCOT, PARKER, HBEAG, AHBE, HBVDNU, CMV #### [place] [address] CMP Collected: 12/27/2017 Status: F Source: [facility] [address] [place] [address] REPOSITORY TYPE CODE TESTS RESULT OUT OF [...] AHBCOT, PARKER, HBEAG, AHBE, HBVDNU, CMV #### [place] [address] .GFR Collected: 12/27/2017 Status: F Source: [facility] 4:05 PM [facility] REPOSITORY TYPE CODE TESTS RESULT OUT OF REFERENCE UNITS RANGE LAB GFRAA(LOINC ml/min/1.73 ) sqm GFR 14 [place]ian Result Comment: GFR Population mean for , [...] AHBCOT, PARKER, HBEAG, AHBE, HBVDNU, CMV #### [place] [address] AAT Collected: 12/27/2017 Status: F Source: [facility] [address] [place] [address] REPOSITORY TYPE CODE TESTS RESULT OUT OF REFERENCE UNITS RANGE LAB AAT(LOINC) 88-174 mg/dL Alpha 1 Antitrypsin 159 Performed By: #### CBC, ADIFF, ANEU, AFPS, CMP, GFR, AAT, CERUL, EVELINA, VAMSI, SMUSC, HBSAG, HBSAB, HCV1, EBV, AHAVT, AHBCOT, PARKER, HBEAG, AHBE, HBVDNU, CMV #### [address] [address] CERUL Collected: 12/27/2017 Status: F Source: [facility] [address] [place] [address] REPOSITORY TYPE CODE TESTS RESULT OUT OF REFERENCE UNITS RANGE LAB CERUL(LOIN 22.0-58.0 mg/dL C) Ceruloplasmin Low 14.1 Performed By: #### CBC, ADIFF, ANEU, AFPS, CMP, GFR, AAT, CERUL, EVELINA, VAMSI, SMUSC, HBSAG, HBSAB, HCV1, EBV, AHAVT, AHBCOT, PARKER, HBEAG, AHBE, HBVDNU, CMV #### [address] [address] EVELINA Collected: 12/27/2017 Status: F Source: [facility] 4:05 [facility] REPOSITORY TYPE CODE TESTS RESULT OUT OF RANGE REFERENCE UNITS LAB EVELINA(LOINC) Neg 40 EVELINA Neg 40 Performed By: #### CBC, ADIFF, ANEU, AFPS, CMP, GFR, AAT, CERUL, EVELINA, VAMSI, SMUSC, HBSAG, HBSAB, HCV1, EBV, AHAVT, AHBCOT, PARKER, HBEAG, AHBE, HBVDNU, CMV #### [address] [address] VAMSI Collected: 12/27/2017 Status: F Source: [facility] [address] [place] [address] REPOSITORY TYPE CODE TESTS RESULT OUT OF REFERENCE UNITS RANGE LAB VAMSI(LOINC Neg 20 ) Mitochondrial Ab Neg 20 Performed By: #### CBC, ADIFF, ANEU, AFPS, CMP, GFR, AAT, CERUL, EVELINA, VAMSI, SMUSC, HBSAG, HBSAB, HCV1, EBV, AHAVT, AHBCOT, PARKER, HBEAG, AHBE, HBVDNU, CMV #### [place] [id number] SMUSC Collected: 12/27/2017 Status: F Source: [facility] 4:05 [facility] REPOSITORY TYPE CODE TESTS RESULT OUT OF REFERENCE UNITS RANGE LAB SMUSC(LOINC Neg 20 ) Smooth Muscle Neg 20 Ab Performed By: #### CBC, ADIFF, ANEU, AFPS, CMP, GFR, AAT, CERUL, EVELINA, VAMSI, SMUSC, HBSAG, HBSAB, HCV1, EBV, AHAVT, AHBCOT, PARKER, HBEAG, AHBE, HBVDNU, CMV #### [address] [address] HBSAG Collected: 12/27/2017 Status: F Source: [facility] 4:05 [facility] REPOSITORY TYPE CODE TESTS RESULT OUT OF REFERENCE UNITS RANGE LAB HBSAG(LOINC Negative ) Hep B Negative Surf Ag Performed By: #### CBC, ADIFF, ANEU, AFPS, CMP, GFR, AAT, CERUL, EVELINA, VAMSI, SMUSC, HBSAG, HBSAB, HCV1, EBV, AHAVT, AHBCOT, PARKER, HBEAG, AHBE, HBVDNU, CMV #### [address] [address] HBSAB Collected: 12/27/2017 Status: F Source: [facility] 4:05 [facility] REPOSITORY TYPE CODE TESTS RESULT OUT OF [...] AHBCOT, PARKER, HBEAG, AHBE, HBVDNU, CMV #### [place] [address] HCV Collected: 12/27/2017 Status: F Source: [facility] 4:[address] [place] [address] REPOSITORY TYPE CODE TESTS RESULT OUT OF [...] AHBCOT, PARKER, HBEAG, AHBE, HBVDNU, CMV #### [place] [address] EBV Collected: 12/27/2017 Status: F Source: [facility] 4:[address] [place] [address] REPOSITORY TYPE CODE TESTS RESULT OUT OF [...] AHBCOT, PARKER, HBEAG, AHBE, HBVDNU, CMV #### [address] [address] AHAVT Collected: 12/27/2017 Status: F Source: [facility] 4:[address] [place] [address] REPOSITORY TYPE CODE TESTS RESULT OUT OF REFERENCE UNITS RANGE LAB AHAVT(LOIN NEGAT C) Hepatitis A Ab Negative Total Result Comment: Performed By: [facility] [address] [place] [address] Laboratory Administrative Director: Francine Casey M.D. CLIA#: [id number] Phone#: Performed By: #### CBC, ADIFF, ANEU, AFPS, CMP, GFR, AAT, CERUL, EVELINA, VAMSI, SMUSC, HBSAG, HBSAB, HCV1, EBV, AHAVT, AHBCOT, PARKER, HBEAG, AHBE, HBVDNU, CMV #### [address] [address] HBCAB Collected: 12/27/2017 Status: F Source: [facility] [address] [place] [address] REPOSITORY TYPE CODE TESTS RESULT OUT OF REFERENCE UNITS RANGE LAB HBCAB(LOINC NEGAT ) Hep B Negative Core Ab Result Comment: Performed By: [facility] [place] [id number] Laboratory Administrative Director: Francine Casey M.D. CLIA#: [id number] Phone#: Performed By: #### CBC, ADIFF, ANEU, AFPS, CMP, GFR, AAT, CERUL, EVELINA, VAMSI, SMUSC, HBSAG, HBSAB, HCV1, EBV, AHAVT, AHBCOT, PARKER, HBEAG, AHBE, HBVDNU, CMV #### [place] [id number] PARKER Collected: 12/27/2017 Status: F Source: [facility] 4:05 [facility] REPOSITORY TYPE CODE TESTS RESULT OUT OF REFERENCE UNITS RANGE LAB RET(LOINC) 0.30-1.20 mg/L Low Vitamin A Lvl 0.07 Result Comment: This test was developed and its performance characteristics determined by [facility] Path[facility] and Laboratory Medicine [place] ([email or web address]PLMI). It has not been cleared or approved by the FDA. -[facility] is regulated under CLIA as qualified to perform high-complexity testing. This test is used for clinical purposes. It should not be regarded as investigational or for research. Performed By: [facility] [address] [place] [address] Laboratory Administrative Director: Francine Casey M.D. CLIA#: [id number] Phone#: Performed By: #### CBC, ADIFF, ANEU, AFPS, CMP, GFR, AAT, CERUL, EVELINA, VAMSI, SMUSC, HBSAG, HBSAB, HCV1, EBV, AHAVT, AHBCOT, PARKER, HBEAG, AHBE, HBVDNU, CMV #### [place] [id number] HBEAG Collected: 12/27/2017 Status: F Source: [facility] 4:05 [facility] REPOSITORY TYPE CODE TESTS RESULT OUT OF REFERENCE UNITS RANGE LAB HBEAG(LOINC NEGAT ) Hep Be Ag Negative Result Comment: Performed By: [facility] [address] [place] [address] Laboratory Administrative Director: Francine Casey M.D. CLIA#: [id number] Phone#: Performed By: #### CBC, ADIFF, ANEU, AFPS, CMP, GFR, AAT, CERUL, EVELINA, VAMSI, SMUSC, HBSAG, HBSAB, HCV1, EBV, AHAVT, AHBCOT, PARKER, HBEAG, AHBE, HBVDNU, CMV #### [address] [address] HBEAB Collected: 12/27/2017 Status: F Source: [facility] 4:05 [facility] REPOSITORY TYPE CODE TESTS RESULT OUT OF REFERENCE UNITS RANGE LAB HBEAB(LOINC ) Hep Be Ab Negative Result Comment: Reference range: Negative (NOTE) Performed by [employer], [address] [place] [id number] [email or web address], Sherwin Adams MD, Lab. Director Performed By: #### CBC, ADIFF, ANEU, AFPS, CMP, GFR, AAT, CERUL, EVELINA, VAMSI, SMUSC, HBSAG, HBSAB, HCV1, EBV, AHAVT, AHBCOT, PARKER, HBEAG, AHBE, HBVDNU, CMV #### [place] [address] HBDNA Collected: 12/27/2017 Status: F Source: [facility] 4:[address] [place] [address] REPOSITORY TYPE CODE TESTS RESULT OUT OF REFERENCE UNITS RANGE LAB HBVRES(LOIN C) HBV DNA HBV DNA not Ultra detected by PCR. Result Comment: Reference Range: Negative for HBVDNA The linear range of this assay is 20 to 170,000,000 IU/ml. Performed By: [facility] [address] [place] [address] Laboratory Administrative Director: Jensen Jimenez#: [id number] Phone#: Performed By: #### CBC, ADIFF, ANEU, AFPS, CMP, GFR, AAT, CERUL, EVELINA, VAMSI, SMUSC, HBSAG, HBSAB, HCV1, EBV, AHAVT, AHBCOT, PARKER, HBEAG, AHBE, HBVDNU, CMV #### [address] [address] CMV Collected: 12/27/2017 Status: F Source: [facility] 4:05 [facility] REPOSITORY TYPE CODE TESTS RESULT OUT OF [...] AHBCOT, PARKER, HBEAG, AHBE, HBVDNU, CMV #### [place] [address] AMM Collected: 12/27/2017 Status: F Source: [facility] 4:05 PM [facility] REPOSITORY TYPE CODE TESTS RESULT OUT OF REFERENCE UNITS RANGE LAB AMM(LOINC) 25-35 mcmol/l High Ammonia 99 Performed By: #### AMM #### [place] [address] IGM Collected: 12/27/2017 Status: F Source: [facility] 4:05 PM [facility] REPOSITORY TYPE CODE TESTS RESULT OUT OF RANGE REFERENCE UNITS LAB IGM(LOINC) 46-304 mg/dL IgM 72 Performed By: #### IGM #### [place] [address] MISC Collected: 12/27/2017 Status: F Source: [facility] 4:05 PM [facility] REPOSITORY Order Comment: HBV DNA Qual TYPE CODE TESTS RESULT OUT OF REFERENCE UNITS RANGE LAB MISC(LOINC) Misc. See Comments Send Out Result Comment: Complete reference lab report scanned to EMR. Performed By: #### MISC #### [place] [address] XR CHEST 2 VIEWS Observed: 12/27/2017 Status: F Source: [facility] 10:24 AM [facility] REPOSITORY ORIGINAL XR CHEST 2 VIEWS CLINICAL [...] DRAINAGE PERITONEAL Observed: 12/27/2017 Status: F Source: [facility] 8:00 AM [facility] REPOSITORY ORIGINAL ULTRASOUND GUIDED PARACENTESIS: Therapeutic CLINICAL STATEMENT: Cirrhosis/ascites DRAINAGE/PUNCTURE SITE: RIGHT upper abdomen QUANTITY OF FLUID REMOVED: 6000 mL CHARACTERISTICS OF FLUID: Yellow serous DISPOSITION OF FLUID: Discarded The paracentesis was performed in the usual fashion. The procedure was successful with minimal patient discomfort. No post-procedural complications were identified. IMPRESSION: Successful ultrasound-guided paracentesis. The procedure was performed by Catalina Soto, Physician Steel Layer. I concur with the contents of the report. Interpreted By: Shant Tucker MD Preliminary Report By: Catalina Soto MS Electronically Signed By: Shant Tucker MD Dictated Date: 12/27/2017 11:54:23 AM Prelim Date: 12/27/2017 11:54:39 AM Sign Date: 12/27/2017 12:01:45 PM Observed: 12/18/2017 Status: F Source: [facility] 8:25 AM [facility] REPOSITORY . MICRO - Microbiology PROCEDURE: Urine [...] Locations *1: This test was performed at: [facility], [address] [place] [address], [facility] , [facility] Performed By: #### CUR #### [place] [address] BMP Collected: 12/18/2017 Status: F Source: [facility] 3:53 AM [facility] REPOSITORY TYPE CODE TESTS RESULT OUT [...] 7.2 Performed By: #### BMP, GFR #### [place] [address] .GFR Collected: 12/18/2017 Status: F Source: [facility] 3:53 AM [facility] REPOSITORY TYPE CODE TESTS RESULT OUT OF REFERENCE UNITS RANGE LAB GFRAA(LOINC ml/min/1.73 ) sqm GFR 14 [place]ian Result Comment: GFR Population mean for , [...] meters Performed By: #### BMP, GFR #### [address] [address] CBC Collected: 12/17/2017 Status: F Source: [facility] 7:09 AM [facility] REPOSITORY TYPE [...] CBC, ADIFF, ANEU, LIP, GFR, CMP #### [address] [address] .AUTO DIFF Collected: 12/17/2017 Status: F Source: [facility] 7:09 AM [facility] REPOSITORY TYPE CODE TESTS RESULT OUT [...] CBC, ADIFF, ANEU, LIP, GFR, CMP #### [place] [address] .NEUABS Collected: 12/17/2017 Status: F Source: [facility] 7:09 AM [facility] REPOSITORY TYPE CODE TESTS RESULT OUT OF REFERENCE UNITS RANGE LAB ANEU(LOINC) 2.25-8.10 10 3/mcL High Neutrophil, 10.20 Absolute Performed By: #### CBC, ADIFF, ANEU, LIP, GFR, CMP #### [place] [address] LIP Collected: 12/17/2017 Status: F Source: [facility] 7:09 AM [facility] REPOSITORY TYPE CODE TESTS RESULT OUT OF REFERENCE UNITS RANGE LAB LIP(LOINC) 73-393 U/L Lipase Level 367 Performed By: #### CBC, ADIFF, ANEU, LIP, GFR, CMP #### [place] [address] .GFR Collected: 12/17/2017 Status: F Source: [facility] 7:09 AM [facility] REPOSITORY TYPE CODE TESTS RESULT OUT OF REFERENCE UNITS RANGE LAB GFRAA(LOINC ml/min/1.73 ) sqm GFR 11 [place]ian Result Comment: GFR Population mean for , [...] CBC, ADIFF, ANEU, LIP, GFR, CMP #### [place] [address] CMP Collected: 12/17/2017 Status: F Source: [facility] 7:09 AM [facility] REPOSITORY TYPE [...] CBC, ADIFF, ANEU, LIP, GFR, CMP #### [place] [address] US DRAINAGE PERITONEAL Observed: 12/09/2017 Status: F Source: [facility] 3:30 PM [facility] REPOSITORY ORIGINAL [...] PM LIP Collected: 12/09/2017 Status: F Source: [facility] 9:23 AM [facility] REPOSITORY TYPE CODE TESTS RESULT OUT OF REFERENCE UNITS RANGE LAB LIP(LOINC) 73-393 U/L Lipase Level 263 Performed By: #### CBC, ADIFF, ANEU, PRO, LIP, GFR, CMP #### [place] [address] .GFR Collected: 12/09/2017 Status: F Source: [facility] 9:23 AM [facility] REPOSITORY TYPE CODE TESTS RESULT OUT OF REFERENCE UNITS RANGE LAB GFRAA(LOINC ml/min/1.73 ) sqm GFR 32 [place]ian Result Comment: GFR Population mean for , [...] ADIFF, ANEU, PRO, LIP, GFR, CMP #### [facility] [address] [place] [address] CMP Collected: 12/09/2017 Status: F Source: [facility] 9:23 AM [facility] REPOSITORY Order [...] ADIFF, ANEU, PRO, LIP, GFR, CMP #### [address] [address] CBC Collected: 12/09/2017 Status: F Source: [facility] 9:01 [facility] REPOSITORY TYPE CODE TESTS RESULT OUT OF [...] ADIFF, ANEU, PRO, LIP, GFR, CMP #### [address] [address] .AUTO DIFF Collected: 12/09/2017 Status: F Source: [facility] 9:01 AM [facility] REPOSITORY TYPE CODE TESTS RESULT OUT [...] ADIFF, ANEU, PRO, LIP, GFR, CMP #### [place] [address] .NEUABS Collected: 12/09/2017 Status: F Source: [place] [employer] 9:01 AM [facility] REPOSITORY TYPE CODE TESTS RESULT OUT OF REFERENCE UNITS RANGE LAB ANEU(LOINC) 2.25-8.10 10 3/mcL High Neutrophil, 11.30 Absolute Performed By: #### CBC, ADIFF, ANEU, PRO, LIP, GFR, CMP #### [place] [address] PRO Collected: 12/09/2017 Status: F Source: [place] [employer] 9:01 AM [facility] REPOSITORY TYPE CODE TESTS RESULT OUT OF REFERENCE UNITS RANGE LAB PT(LOINC) 9.0-14.5 seconds High Protime 17.3 Result Comment: Effective 11/29/07, Protime results may be affected by some antibiotics (i.e. Ciprofloxacin, Azithromycin, Bactrim) which may potentiate the action of oral anticoagulants, with further increases in Protime/INR. LAB INR(LOINC) ratio PT International Ratio 1.5 Result Comment: The [place] [employer] (CHEST, 1992, 102:312S-25S) recommended therapeutic range for oral anticoagulant therapy is: LOW RISK: Prophylaxis of venous thrombosis INR: 2.0-3.0 Treatment of pulmonary embolism 2.0-3.0 Prevention of systemic embolism 2.0-3.0 HIGH RISK: Mechanical prosthetic valves 2.5-3.5 Performed By: #### CBC, ADIFF, ANEU, PRO, LIP, GFR, CMP #### [place] [id number] [address] [place] [address] US DRAINAGE PERITONEAL Observed: 12/03/2017 Status: F Source: [facility] 8:30 AM [facility] REPOSITORY ORIGINAL ULTRASOUND GUIDED PARACENTESIS: Therapeutic [...] procedure was performed by Catalina Soto Physician Steel Layer. I concur with the contents of the report. Interpreted By: Tray Storm MD Preliminary Report By: Catalina Soto Electronically Signed By: Tray Storm MD Dictated Date: 12/03/2017 3:56:48 PM Prelim Date: 12/03/2017 3:57:05 PM Sign Date: 12/03/2017 6:19:57 PM US DRAINAGE PERITONEAL Observed: 11/19/2017 Status: F Source: [facility] 11:00 AM [facility] REPOSITORY ORIGINAL ULTRASOUND GUIDED PARACENTESIS: Therapeutic CLINICAL STATEMENT: Ascites DRAINAGE/PUNCTURE SITE: RIGHT upper abdomen QUANTITY OF FLUID REMOVED: 9300 mL CHARACTERISTICS OF FLUID: Yellow serous DISPOSITION OF FLUID: Discarded The paracentesis was performed in the usual fashion. The procedure was successful with minimal patient discomfort. No post-procedural complications were identified. IMPRESSION: Successful ultrasound-guided paracentesis. The procedure was performed by Catalina Soto Physician Steel Layer. I concur with the contents of the report. Interpreted By: Davidson Mujica MD Preliminary Report By: Catalina Soto Electronically Signed By: Davidson Mujica MD Dictated Date: 11/19/2017 2:03:35 PM Prelim Date: 11/19/2017 2:03:47 PM Sign Date: 11/19/2017 2:09:01 PM US DRAINAGE PERITONEAL Observed: 11/01/2017 Status: F Source: [facility] 9:30 AM [facility] REPOSITORY ORIGINAL ULTRASOUND GUIDED PARACENTESIS CLINICAL [...] PM BMP Collected: 10/16/2017 Status: F Source: [facility] 6:25 AM [facility] REPOSITORY TYPE CODE TESTS RESULT OUT [...] 7.9 Performed By: #### BMP, GFR #### [place] [address] .GFR Collected: 10/16/2017 Status: F Source: [facility] 6:25 AM [facility] REPOSITORY TYPE CODE TESTS RESULT OUT OF REFERENCE UNITS RANGE LAB GFRAA(LOINC ml/min/1.73 ) sqm GFR 44 [place]ian Result Comment: GFR Population mean for , [...] meters Performed By: #### BMP, GFR #### [address] DRAINAGE PERITONEAL Observed: 10/14/2017 Status: F Source: [facility] 1:00 PM [facility] REPOSITORY ORIGINAL [...] procedure was performed by Catalina Soto, Physician Steel Layer. I concur with the contents of the report. Interpreted By: Sammy Bowen MD Preliminary Report By: Catalina Soto PA Electronically Signed By: Sammy Bowen MD Dictated Date: 10/14/2017 3:06:14 PM Prelim Date: 10/14/2017 3:06:26 PM Sign Date: 10/14/2017 5:47:35 PM HEMOC Collected: 10/14/2017 Status: F Source: [facility] 11:36 AM [facility] REPOSITORY TYPE CODE TESTS RESULT OUT OF RANGE REFERENCE UNITS LAB C282Y(LOINC ) C282Y Normal Locus Result Comment: Performed By: [place] [address] Laboratory Administrative Director: Francine Casey M.D. CLIA#: [id number] Phone#: LAB H63D([facility]) H63D Locus Normal Result Comment: Performed By: [place] [address] Laboratory Administrative Director: Francine Casey M.D. CLIA#: [id number] Phone#: LAB S65C([facility]) S65C Locus Normal Result Comment: Performed By: [place] [address] Laboratory Administrative Director: Francine Casey M.D. CLIA#: [id number] Phone#: LAB HMINT(LOINC) Hemochromatosis The DNA Interpretation [...] developed and its performance characteristics determined by [facility]'s [place] [facility] Pathology and Laboratory Medicine [place] ([facility] [email or web address]). It has not been cleared or approved by the FDA. -[facility] is regulated under CLIA as qualified to perform high-complexity testing. This test is used for clinical purposes. It should not be regarded as investigational or for research. Performed By: [address] [place] [address] Laboratory Administrative Director: Francine Casey M.D. CLIA#: [id number] Phone#: LAB REVWBY(LOINC) Hemochromatosis Reviewed by Reviewed by Shant Wong MD ([id number]) Result Comment: Performed By: [facility] [address] [place] [address] Laboratory Administrative Director: Francine Casey M.D. CLIA#: [id number] Phone#: Performed By: #### HEMDNA #### [place] [address] US ABDOMEN LIMITED Observed: 10/14/2017 Status: F Source: [facility] 9:00 AM [facility] REPOSITORY ORIGINAL [...] AM CBC Collected: 10/14/2017 Status: F Source: [facility] 3:52 AM [facility] REPOSITORY TYPE [...] ADIFF, ANEU, LD, MG, GFR, CMP #### [address] [address] .AUTO DIFF Collected: 10/14/2017 Status: F Source: [facility] 3:52 AM [facility] REPOSITORY TYPE CODE TESTS RESULT OUT [...] ADIFF, ANEU, LD, MG, GFR, CMP #### [address] [address] .NEUABS Collected: 10/14/2017 Status: F Source: [facility] 3:52 AM [facility] REPOSITORY TYPE CODE TESTS RESULT OUT OF REFERENCE UNITS RANGE LAB ANEU(LOINC) 2.25-8.10 10 3/mcL High Neutrophil, 11.00 Absolute Performed By: #### CBC, ADIFF, ANEU, LD, MG, GFR, CMP #### [address] [address] LDH Collected: 10/14/2017 Status: F Source: [facility] 3:52 AM [facility] REPOSITORY TYPE CODE TESTS RESULT OUT OF RANGE REFERENCE UNITS LAB LD(LOINC) 120-246 U/L LDH 191 Performed By: #### CBC, ADIFF, ANEU, LD, MG, GFR, CMP #### [address] [address] MG Collected: 10/14/2017 Status: F Source: [facility] 3:52 AM [facility] REPOSITORY TYPE CODE TESTS RESULT OUT OF REFERENCE UNITS RANGE LAB MG(LOINC) 1.6-2.4 mg/dL Magnesium Lvl 2.1 Performed By: #### CBC, ADIFF, ANEU, LD, MG, GFR, CMP #### [address] [address] .GFR Collected: 10/14/2017 Status: F Source: [facility] 3:52 AM [facility] REPOSITORY TYPE CODE TESTS RESULT OUT OF REFERENCE UNITS RANGE LAB GFRAA(LOINC ml/min/1.73 ) sqm GFR 48 [place]ian Result Comment: GFR Population mean for , [...] ADIFF, ANEU, LD, MG, GFR, CMP #### [place] [address] CMP Collected: 10/14/2017 Status: F Source: [facility] 3:52 AM [facility] REPOSITORY TYPE [...] ADIFF, ANEU, LD, MG, GFR, CMP #### [place] [address] AMM Collected: 10/13/2017 Status: F Source: [facility] 11:28 [facility] REPOSITORY TYPE CODE TESTS RESULT OUT OF REFERENCE UNITS RANGE LAB AMM(LOINC) 25-35 mcmol/l Ammonia 27 Performed By: #### AMM, PRO, FERR, AFPS, EVELINA, HEPAC, VAMSI, SMUSC, COPPER, SMUST #### [place] [address] PRO Collected: 10/13/2017 Status: F Source: [facility] 11:28 [facility] REPOSITORY TYPE CODE TESTS RESULT OUT OF REFERENCE UNITS RANGE LAB PT(LOINC) 9.0-14.5 seconds High Protime 22.4 Result Comment: Effective 11/29/07, Protime results may be affected by some antibiotics (i.e. Ciprofloxacin, Azithromycin, Bactrim) which may potentiate the action of oral anticoagulants, with further increases in Protime/INR. LAB INR(LOINC) ratio PT International Ratio 1.9 Result Comment: The [place] [employer] (CHEST, 1992, 102:312S-25S) recommended therapeutic range for oral anticoagulant therapy is: LOW RISK: Prophylaxis of venous thrombosis INR: 2.0-3.0 Treatment of pulmonary embolism 2.0-3.0 Prevention of systemic embolism 2.0-3.0 HIGH RISK: Mechanical prosthetic valves 2.5-3.5 Performed By: #### AMM, PRO, FERR, AFPS, EVELINA, HEPAC, VAMSI, SMUSC, COPPER, SMUST #### [place] [address] FERR Collected: 10/13/2017 Status: F Source: [facility] 11:28 PM [facility] REPOSITORY TYPE CODE TESTS RESULT OUT OF REFERENCE UNITS RANGE LAB FERR(LOINC) 8-252 ng/mL High Ferritin 891 Performed By: #### AMM, PRO, FERR, AFPS, EVELINA, HEPAC, VAMSI, SMUSC, COPPER, SMUST #### [place] [address] AFPS Collected: 10/13/2017 Status: F Source: [facility] 11:28 [facility] REPOSITORY TYPE CODE TESTS RESULT OUT OF REFERENCE UNITS RANGE LAB AFPS(LOINC) 0.0-8.5 ng/mL AFP, Tumor 2.9 Marker Performed By: #### AMM, PRO, FERR, AFPS, EVELINA, HEPAC, VAMSI, SMUSC, COPPER, SMUST #### [place] [address] EVELINA Collected: 10/13/2017 Status: F Source: [facility] 11:[address] [place] [address] REPOSITORY TYPE CODE TESTS RESULT OUT OF RANGE REFERENCE UNITS LAB EVELINA(LOINC) Neg 40 EVELINA Neg 40 Performed By: #### AMM, PRO, FERR, AFPS, EVELINA, HEPAC, VAMSI, SMUSC, COPPER, SMUST #### [place] [address] HEPAC Collected: 10/13/2017 Status: F Source: [facility] [address] [place] [address] REPOSITORY TYPE CODE TESTS RESULT OUT OF [...] EVELINA, HEPAC, VAMSI, SMUSC, COPPER, SMUST #### [place] [address] VAMSI Collected: 10/13/2017 Status: F Source: [facility] 11:28 [facility] REPOSITORY TYPE CODE TESTS RESULT OUT OF REFERENCE UNITS RANGE LAB VAMSI(LOINC Neg 20 ) Mitochondrial Ab Neg 20 Performed By: #### AMM, PRO, FERR, AFPS, EVELINA, HEPAC, VAMSI, SMUSC, COPPER, SMUST #### [address] [address] SMUSC Collected: 10/13/2017 Status: F Source: [facility] 11:28 [facility] REPOSITORY TYPE CODE TESTS RESULT OUT OF REFERENCE UNITS RANGE LAB SMUSC(LOINC Neg 20 ) Smooth Muscle See Titer Ab Performed By: #### AMM, PRO, FERR, AFPS, EVELINA, HEPAC, VAMSI, SMUSC, COPPER, SMUST #### [address] [address] CUS Collected: 10/13/2017 Status: F Source: [facility] 11:28 [facility] REPOSITORY TYPE CODE TESTS RESULT OUT OF REFERENCE UNITS RANGE LAB COPPER(LOIN 85-155 UG/DL C) Low Copper (s) 62 Result Comment: This test was developed and its performance characteristics determined by [facility] Pathology and Laboratory Medicine [place] ([facility] [email or web address]]PLMI). It has not been cleared or approved by the FDA. -[facility] is regulated under CLIA as qualified to perform high-complexity testing. This test is used for clinical purposes. It should not be regarded as investigational or for research. Performed By: [facility] [address] [place] [address] Laboratory Administrative Director: Francine Casey M.D. IA#: [id number] Phone#: Performed By: #### AMM, PRO, FERR, AFPS, EVELINA, HEPAC, VAMSI, SMUSC, COPPER, SMUST #### [address] [address] SMUST Collected: 10/13/2017 Status: F Source: [facility] 11:28 [facility] REPOSITORY TYPE CODE TESTS RESULT OUT OF [...] EVELINA, HEPAC, VAMSI, SMUSC, COPPER, SMUST #### [place] [address] BFCT Collected: 10/13/2017 Status: C Source: [facility] 8:30 PM [facility] REPOSITORY TYPE CODE TESTS RESULT OUT OF REFERENCE UNITS RANGE LAB BSORC(LOIN C) Paracentesis Body Fluid Source Result Comment: Reference ranges have not been established for this body fluid. The test results must be integrated into the clinical context for interpretation. LAB BNBC(LOINC) /mm3 Nucleated blood cells 48 Performed By: #### BFCT, GLUBF, LDBF, PROBF #### [place] [address] GLUBF Collected: 10/13/2017 Status: F Source: [facility] 8:30 PM [facility] REPOSITORY TYPE CODE TESTS RESULT OUT [...] By: #### BFCT, GLUBF, LDBF, PROBF #### [place] [address] LDBF Collected: 10/13/2017 Status: F Source: [facility] 8:30 [facility] REPOSITORY TYPE CODE TESTS RESULT OUT OF REFERENCE UNITS RANGE LAB BFLD(LOINC ) LDH Peritoneal fl Body Fluid Spec Type LAB CD:[id number] U/L (LOINC) 48.0 LDH BF Result Comment: The reference interval(s) and other method performance specifications have not been established for this body fluid. The test result must be integrated into the clinical content for interpretation. Performed By: #### BFCT, GLUBF, LDBF, PROBF #### [place] [address] PROBF Collected: 10/13/2017 Status: F Source: [facility] 8:30 PM [facility] REPOSITORY TYPE CODE TESTS RESULT OUT OF REFERENCE UNITS RANGE LAB CD:[id number] 63(LOINC) Protein BF Peritoneal fl Type LAB PROB(LOINC G/dL ) <2.0 Protein BF Result Comment: The reference interval(s) and other method performance specifications have not been established for this body fluid. The test result must be integrated into the clinical content for interpretation. Performed By: #### BFCT, GLUBF, LDBF, PROBF #### [facility] [address] [place] [address] XR CHEST 1 VIEW Observed: 10/13/2017 Status: F Source: [facility] 3:04 PM [facility] REPOSITORY ORIGINAL Portable Chest x-ray Clinical Statement: cough Comparison: None Low lung volumes, but no focal consolidation, congestion, pleural effusion, or pneumothorax is seen. The cardiac silhouette is unremarkable. IMPRESSION: Hypoventilation. No consolidation seen. Interpreted By: Nasim Webb DO Preliminary Report By: Nasim eWbb DO Electronically Signed By: Nasim Webb DO Dictated Date: 10/13/2017 3:34:56 PM Prelim Date: 10/13/2017 3:34:56 PM Sign Date: 10/13/2017 3:35:[address] ABD/PELVIS W/ IV Observed: 10/13/2017 Status: F Source: [facility] CONTRAST ONLY 3:04 PM [facility] REPOSITORY ORIGINAL CT ABD/PELVIS W/ IV CONTRAST [...] is present. The urinary bladder is unremarkable. Knapp paulette is mildly enlarged and lobulated in [...] PM CBC Collected: 10/13/2017 Status: F Source: [facility] 2:21 [facility] REPOSITORY TYPE CODE TESTS RESULT OUT OF [...] CBC, ADIFF, ANEU, GFR, LIP, CMP #### [address] [address] .AUTO DIFF Collected: 10/13/2017 Status: F Source: [facility] 2:21 [facility] REPOSITORY TYPE CODE TESTS RESULT OUT OF [...] CBC, ADIFF, ANEU, GFR, LIP, CMP #### [address] [address] .NEUABS Collected: 10/13/2017 Status: F Source: [facility] 2:21 [facility] REPOSITORY TYPE CODE TESTS RESULT OUT OF REFERENCE UNITS RANGE LAB ANEU(LOINC) 2.85-6.16 10 3/mcL High Neutrophil, 12.90 Absolute Performed By: #### CBC, ADIFF, ANEU, GFR, LIP, CMP #### [address] [address] .GFR Collected: 10/13/2017 Status: F Source: [facility] 2:21 [facility] REPOSITORY TYPE CODE TESTS RESULT OUT OF REFERENCE UNITS RANGE LAB GFRAA(LOINC ml/min/1.73 ) sqm GFR 46 Tunisian Result Comment: GFR Population mean for , [...] CBC, ADIFF, ANEU, GFR, LIP, CMP #### [address] [address] LIP Collected: 10/13/2017 Status: F Source: [facility] 2:21 PM [facility] REPOSITORY TYPE CODE TESTS RESULT OUT OF REFERENCE UNITS RANGE LAB LIP(LOINC) 8-78 IU/L Lipase Level 38 Performed By: #### CBC, ADIFF, ANEU, GFR, LIP, CMP #### [address] [address] CMP Collected: 10/13/2017 Status: F Source: [facility] 2:21 [facility] REPOSITORY TYPE CODE TESTS RESULT OUT OF [...] CBC, ADIFF, ANEU, GFR, LIP, CMP #### [place] [address] [place], [place] [address] ALC Collected: 10/13/2017 Status: F Source: [facility] 2:21 PM [facility] REPOSITORY TYPE CODE TESTS RESULT OUT OF REFERENCE UNITS RANGE LAB CD:[id number]( mg/dL LOINC) Ethanol Level <10 Performed By: #### ALC #### [address] [address] ALLERGIES ALLERGIES DATE TYPE / CODE NAME / CODE REACTION SEVERITY SOURCE 05/31/2018 Drug No Known Unknown [facility] Allergy/4160 Allergies/F00 [facility] [address](SNOMED [id number](RXNOR Repository CT) M) ENCOUNTERS ENCOUNTERS ADMIT/DISCHARGE ACCOUNT NUMBER ADMITTING ENCOUNTER LOCATION SOURCE CLASS 06/06/2018 [id number] Ambulatory ABuilding:XR [facility] Repository 06/01/2018 [id number] Ambulatory ABuilding:XR [facility] Repository 05/31/2018/06/03/19 [id number] [facility], Inpatient [place] 19 Ghasem Encounter [facility] ding:PCURoom Repository : [id number]: 1 05/31/2018 [id number] [facility], Ambulatory BMSBuilding: [place]has[place] [facility] [place] [place] 05/31/2018 [id number] [facility], Ambulatory BMSBuilding: [place] Ghasem [facility] [place] Repository 05/31/2018 [id number] [facility], Ambulatory BMSBuilding: [place] Ghasem [facility] [place] Repository 05/31/2018 [id number] [place], Ambulatory BMSBuilding: [place] Ghasem BMS.[facility] Repository 05/27/2018 [id number] Ambulatory ABuilding:XR [facility] Repository 05/27/2018/05/27/19 [id number] Ambulatory ABuilding:XR [facility] Repository 05/20/2018/05/20/19 [id number] Ambulatory ABuilding:XR [facility] Repository 05/11/2018/05/11/20 [id number] Ambulatory ABuilding:XR [facility] Repository 05/04/2018/05/04/20 [id number] Ambulatory BMSBuilding: Nicolette 18 BMS.[facility] Repository 05/02/2018/05/02/20 [id number] Ambulatory ABuilding:XR Jazz 18 [facility] Repository 04/27/2018 [id number] Ambulatory [facility] ding:MEDOUTP Repository 04/26/2018 [id number] Ambulatory [facility] ding:PAVLAB Repository 04/25/2018/04/25/20 [id number] Ambulatory ABuilding:XR Jazz 18 [facility] Repository 04/20/2018 [id number] Ambulatory [facility] ding:PAVLAB Repository 04/18/2018/04/18/20 [id number] Ambulatory ABuilding:XR [facility] Repository 04/13/2018/04/13/20 [id number] Ambulatory BMSBuilding: [place] 18 BMS.[facility] Repository 04/11/2018/04/11/20 [id number] Ambulatory ABuilding:XR [facility] Repository 03/29/2018/03/29/20 [id number] Ambulatory ABuilding:XR [facility] 18 [facility] Repository 03/25/2018 [id number] Ambulatory BMSBuilding: [place] [facility] Repository 03/24/2018 [id number] Ambulatory [facility] ding:PSN Repository 03/18/2018/03/18/20 [id number] Ambulatory AULTMANBuild Jazz 18 ing:[facility] Repository 03/11/2018/03/11/20 [id number] Ambulatory AULTMANBuild Jazz 18 ing:[facility] Repository 03/10/2018 [id number] Ambulatory [facility] ding:CT Repository 03/10/2018 [id number] Ambulatory BMSBuilding: [place] [facility] Repository 03/09/2018 [id number] Ambulatory [facility] ding:PSN Repository 03/04/2018/03/04/20 [id number] Ambulatory AULTMANBuild [facility] 18 ing:[facility] Repository 03/01/2018/03/01/20 [id number] Ambulatory BMSBuilding: [place] 18 [facility] Repository 02/24/2018/02/25/20 [id number] Ambulatory AULTMANBuild Jazz 18 ing:[facility] Repository 02/19/2018 [id number] Ambulatory [facility] ding:OPBI Repository 02/16/2018/02/17/20 [id number] Ambulatory AULTMANBuild Jazz 18 ing:[facility] Repository 02/09/2018/02/10/20 [id number] Ambulatory AULTMANBuild Jazz 18 ing:[facility] Repository 02/08/2018 [id number] Ambulatory [facility] ding:CT Repository 01/26/2018/01/27/20 [id number] Ambulatory AULTMANBuild Jazz 18 ing:[facility] Repository 01/19/2018/01/20/20 [id number] Ambulatory AULTMANBuild [facility] 18 ing:[facility] Repository 01/11/2018/01/12/20 [id number] Ambulatory AULTMANBuild Jazz 18 ing:[facility] Repository 01/07/2018/01/08/20 [id number] Ambulatory AULTMANBuild [facility] 18 ing:[facility] Repository 01/03/2018/08/20 [id number] Ambulatory AULTMANBuild [facility] 18 ing:[facility] Repository 12/29/2017 [id number] Ambulatory ABuilding:XR Jazz AY [facility] Repository 12/28/2017 [id number] Ambulatory ABuilding:IN [facility] F [facility] Repository 12/27/2017/12/28/19 [id number] Ambulatory AULTMANBuild Jazz 18 ing:[facility] Repository 12/17/2017/12/19/19 [id number] KELLEY BABCOCK., Ambulatory ABuilding:ME Jazz De Jesus MD. JOYCE Rodriguez 6SRoom: Hubbub 6660Bed: Basic6 [facility] Repository 12/09/2017/12/10/19 [id number] Ambulatory AULTMANBuild Jazz 18 ing:[facility] Repository 12/09/2017/12/10/19 [id number] Emergency ABuilding:ER Jazz 18 [facility] Repository 12/03/2017/12/04/19 [id number] Ambulatory AULTMANBuild Jazz 18 ing:[facility] Repository 12/02/2017/12/03/19 [id number] Emergency ABuilding:ER Jazz 18 [facility] Repository 11/19/2017/11/20/19 [id number] Ambulatory AULTMANBuild Jazz 18 ing:[facility] Repository 11/18/2017/11/19/19 [id number] Emergency ABuilding:ER Jazz 18 [facility] Repository 11/01/2017/11/02/19 [id number] Ambulatory AULTMANBuild Jazz 18 ing:[facility] Repository 10/27/2017 [id number] Ambulatory ABuilding:XR [facility] Repository 10/13/2017/10/17/19 [id number] NEEL BABCOCK, Inpatient ABuilding:ME Jazz Rodriguez Encounter 6NRoom: Health 6608Bed: A Foundation Repository 10/13/2017/10/14/19 [id number] Emergency BBuilding:ER Jazz 18 O [facility] Repository PAYERS PAYERS ENCOUNTER GUARANTOR PAYER SUBSCRIBER SOURCE 06/06/2018 KEYLA J Primary KEYLA J [facility]: Insurance:SELF PAY [facility]: [facility] [id number] INSCOPolicy Number: [id number] Repository [place] Effective 6 [facility] [place] Date:2018-06-03 - [facility] [place] [address]Twv: [phone] [id number] Name:[phone] [id number]: (HP) 275 (HP) (WP) 06/01/2018 KEYLA Rivero Primary KEYLA Rivero [facility]: Insurance:SELF PAY [facility]: [facility] [id number] INSCOPolicy Number: [id number] Repository SCHELLIN Effective 6 [place] [facility] [place] Date:2018-05-27 - [facility] [place] [address]Qqn: [phone] [id number] Name:[id number]: (HP) 275 (HP) (WP) 05/31/2018 KEYLA Rivero Primary NOT GIVENUNK N[place] [id number] Insurance:SELF PA[place] [facility] [place] Number: Effective Repository [address]Zvj: (330) Date:2018-05-31 (HP) 05/31/2018 KEYLA Rivero Primary NOT GIVENUNK [place] [id number] Insurance:SELF PAY [facility] Number: Effective Repository [address]Ien: (330) Date:2018-05-31 (HP) 05/31/2018 KEYLA Rivero Primary NOT GIVENUNK [place] [id number] Insurance:SELF PAY [facility] Number: Effective Repository [phone]: (330) Date:2018-05-31 (HP) 05/31/2018 KEYLA Rivero Primary NOT GIVENUNK [place] [id number] Insurance:SELF PAY [facility] Number: Effective Repository [phone]: (330) Date:2018-05-31 [phone] (HP) 05/31/2018 [facility]2596 Insurance:SELF PAY [facility], [place] Number: Effective Repository [id number]: (330) Date:2018-05-31 [phone] (HP) 05/27/2018 [facility] INSCOPolicy Number: [id number] Repository [place] Effective 6 [facility] [facility] [place] Date:2018-05-27 - [place] [address]Vbt: 330 [id number] Name:[id number]: (HP) 275 (HP) (WP) 05/27/2018 [facility]: Insurance:SELF PAY [facility]: [facility] [id number] INSCOPolicy Number: [id number] Repository SCHELLIN Effective 6 [facility]IN [facility] [place] Date:2018-05-23 [place] [address]Nsh: [phone] [id number] Name:[id number]: (HP) 275 (HP) (WP) 05/20/2018 [facility]: Insurance:SELF PAY [facility]: [facility] [id number] INSCOPolicy Number: [id number] Repository [place] Effective 6 [place] Date:2018-05-19 [place] [address]Wjw: [phone] Name:[id number]: (HP) [phone] (HP) (WP) 05/11/2018 [facility] Primary [facility]: Insurance:[facility] [[email or web address]]: [facility] [id number] Repository [place] Number: 6 [address] [facility] [place] [id number] [place], [place] [address]Lpr: (330) Date:2018-04-25 420[address]Wwz: (HP) [id number] Name:XPO Box ()Tel: (000) [address] [place] [address] 000-0000 (WP) 38[address]AU: 05/04/2018 [facility] Primary Insurance:[facility] KEYLA Rivero [place] [id number] [facility]: [facility] SCHELLIN Number: [id number] [place], [place] [id number] Repository [address]Kmw: (330) Date:8479-30-27HB [address] (HP) [address] [place] [address]JL: 05/04/2018 Secondary NOT GIVENUNK Nicolette Insurance:SELF PAY [facility] Number: Effective Repository Date:2018-04-27 05/02/2018 [facility] Primary [facility]: Insurance:[email or web address]]: [facility] [id number] [facility] [id number] Repository [place] Number: 6 [address] [facility] [place] [id number] [facility], [place] [address]Idd: (330) Date:2018-04-25 134[address]Pdu: (HP) [id number] Name:XPO Box (HP)Tel: (000) [address] [place] [address] 000-0000 (WP) [address]CJ: 04/27/2018 [facility] Primary Insurance:[facility] KEYLA Rivero [address]: [facility] SCHELLIN Number: [id number], [place] [id number] Repository [address]Jmr: (330) Date:4871-68-79WM [address] () [address] [place] [address]FU: 04/27/2018 Secondary NOT GIVENUNK [place] Insurance:SELF PAY [facility] Number: Effective Repository Date:2018-04-18 04/26/2018 KEYLA Josefa Primary Insurance:[facility] KEYLA Will [id number] [facility]: Community [place] Number: [id number], [place] [id number] Repository [address]Zpv: (330) Date:9793-24-53UW [id number] () [address] [place] [address]MH: 04/26/2018 Secondary NOT GIVENUNK [place] Insurance:SELF PAY [facility] Number: Effective Repository Date:2018-04-26 04/25/2018 KEYLA Josefa Primary KEYLA Rivero [facility] [id number] [facility] [id number] Repository [place] Number: [address] [place], [place] [id number] [place] [address]Oky: (330) Date:2018-04-11 069[address]Cek: () [id number] Name:XPO Box ()Tel: [address] [place] [address] 000-0000 () 77[address]CF: 04/20/2018 KEYLA Rivero Primary Insurance:[facility] KEYLA [facility]2596 [facility]: [facility] SCHELLIN Number: [id number], [place] [id number] Repository [address]Ukz: (330) Date:1003-09-46VK [address] () [address] [place] [address]WF: 04/20/2018 Secondary NOT GIVENUNK [place] Insurance:SELF PAY [facility] Number: Effective Repository Date:2018-04-20 04/18/2018 [facility]: Insurance:[facility] [[email or web address]]: [facility] [id number] [facility] [id number] Repository [place] Number: 6 [place] [place] [id number] [place], [place] [address]Imh: (330) Date:2018-04-1194577Pei: (HP) [id number] [phone] Name:XPO Box ()Tel: (000) [address] [place] [address] 000-0000 (WP) 93[address]HT: 04/13/2018 [facility] Insurance:[facility]2596 [facility]: [facility] SCHELLIN Number: [id number] [place], [place] [id number] Repository [address]Qfp: (330) Date:4434-07-45TF [address] () [address] [place] [address]SS: 04/13/2018 Secondary NOT GIVENUNK [place] Insurance:SELF PAY [facility] Number: Effective Repository Date:2018-04-05 04/11/2018 [facility]: Insurance:[email or web address]]: [facility] [id number] [facility] [id number] Repository [place] Number: [address] [place] [id number] [place], [place] [address]Mat: (330) Date:2018-04-0106970Kes: (HP) [id number] [phone] Name:XPO Box ()Tel: (000) [address] [place] [address] 000-0000 (WP) 92[address]EE: 03/29/2018 KEYLA J Primary KEYLA J [facility]: Insurance:[email or web address]]: [facility] [id number] [facility] [id number] Repository [place] Number: 6 [facility] [facility] [place] [id number] [facility] [place] [address]Cwa: (330) Date:2018-03-28Tel: (HP) [id number] Name:XPO Debra ()Tel: (230) [address] [place] [address] 000-0000 () 90[address]XV: 03/25/2018 KEYLA Rivero Primary Insurance:[facility] KEYLA Will [id number] [facility]: [facility] SCHELLIN Number: [id number] [place], [place] [id number] Repository [address]Sjf: (330) Date:5666-17-07LM [address] () [address] [place] [address]UB: 03/25/2018 Secondary NOT GIVENUNK [place] Insurance:SELF PAY [facility] Number: Effective Repository Date:2018-03-25 03/24/2018 KEYLA Josefa Primary Insurance:[facility] KEYLA Will [id number] [facility]: [facility] SCHELLIN Number: [id number], [place] [id number] Repository [address]Axd: (330) Date:4303-26-74RQ [phone] () [address] [place] [address] 07[address]PZ: 03/24/2018 Secondary NOT GIVENUNK [place] Insurance:SELF PAY [facility] Number: Effective Repository Date:2018-03-01 03/18/2018 [facility] Primary KEYLA Rivero [facility]: Insurance:[facility] [[email or web address]]: [facility] [id number] [facility] [id number] Repository [place] Number: [address] [place], [place] [id number] [place] [address]Whj: (330) Date:2018-03-11 50[address]Pst: (HP) [id number] Name:XPO Box (HP)Tel: (000) [address] [place] [address] 000-0000 (WP) 47[address]KG: 03/11/2018 KEYLA J Primary [facility]: Insurance:[facility] [[email or web address]]: [facility] [id number] [facility] [id number] Repository [place] Number: [address] [place] [id number] [place] [address]Wec: (330) Date:2018-03-08 38[address]Wfz: (HP) [id number] [phone] Name:XPO Box ()Tel: (000) [address] [place] [address] 000-0000 (WP) 13015CD: 03/10/2018 KEYLA Rivero Primary Insurance:[facility] KEYLA Josefa Nicolette [id number] [facility]: [facility] SCHELLIN Number: [id number], [place] [id number] Repository [address]Mbs: (330) Date:6284-09-99HZ [address] (HP) [address] [place] [address] 57[address]OU: 03/10/2018 Secondary NOT GIVENUNK N[place]lette Insurance:SELF PAY [facility] Number: Effective Repository Date:2018-03-02 03/10/2018 KEYLA J Primary Insurance:[facility] KEYLA J [place] [id number] [facility]: [facility] SCHELLIN Number: [id number], [place] [id number] Repository [address]Xbd: (330) Date:7583-20-96RG [address] (HP) [address] [place] [address]85[address]GD: 03/10/2018 Secondary NOT GIVENUNK [place] Insurance:SELF PAY [facility] Number: Effective Repository Date:2018-03-10 03/09/2018 KEYLA Rivero Primary Insurance:[facility] KEYLA Will [id number] [facility] PLANJohn Paul Jones HospitalB: Community [place] Number: [id number], [place] [id number] Repository [address]Ftc: (330) Date:7437-02-48QF [phone] () [address] [place] [address] 04628EX: 03/09/2018 Secondary NOT GIVENUNK Nicolette Insurance:SELF PAY [facility] Effective Repository Date:2018-03-01 03/04/2018 [facility]: Insurance:[facility] [[email or web address]]: [facility] [id number] [facility] [id number] Repository [place] Number: [address] [place], [place] [id number] [place], [place] [address]Ulg: (330) Date:2018-02-24 09159Ffs: (HP) [id number] Name:J CARLOSO Debra ()Tel: (000) [address] [place] [address] 000-0000 () [id number]: 03/01/2018 KEYLA Rivero Primary Insurance:[facility] KEYLA Will [id number] [facility] Community [place] Number: [id number] [id number] Repository [address]Pud: (330) Date:8535-94-61MO [phone] () [address] [place] [address] 18599VF: 03/01/2018 Secondary NOT GIVENUNK Nicolette Insurance:SELF PAY [facility] [place] [facility] Number: Effective Repository Date:2018-03-01 02/24/2018 [facility]: Insurance:[facility] [[email or web address]]: [facility] [id number] [facility] [id number] Repository [place] Number: [address] [place], [place] [id number] [place] [address]Scu: (330) Date:2018-02-21Tel: (HP) [id number] Name:XPO Box (HP)Tel: (000) [address] [place] [address] 000-0000 (WP) 29220WO: 02/19/2018 [facility] Primary Insurance:[facility] KEYLA Rivero [place] [id number] [facility]: [facility] [place] Number: [id number] [facility] [place] [id number] Repository [address]Cuq: (330) Date:9969-63-73OX BOX () [address] [place] [address] 74314LV: 02/19/2018 [facility] Nicolette Insurance:SELF PAY [facility] Number: Effective Repository Date:2018-01-28 02/16/2018 [facility]: Insurance:[facility] [[email or web address]]: [facility] [id number] Repository [place] Number: [address] [place], [place] [id number] [place] [address]Qbu: (330) Date:2018-02-09Tel: (HP) [id number] Name:XPO Box (HP)Tel: (000) [address], [place] 000-0000 (WP) 86[address]QI: 02/09/2018 [facility]: Insurance:[facility] [[email or web address]]: [facility] [id number] [facility] [id number] Repository [place] Number: [address] [place], [place] [id number] [place] [address]Jmc: (330) Date:2018-02-0250906Uhc: (HP) [id number] Name:XPO Box (HP)Tel: (000) [address] [place] [address] 000-0000 (WP) 06249NP: 02/08/2018 [facility] Primary Insurance:[facility] KEYLA J [place] [id number] [facility] Community [place] Number: [id number] [place] [id number] Repository [address]Ntn: (330) Date:9477-58-01EX BOX () [address] [place] [address] 16439LU: 02/08/2018 Secondary [facility] Nicolette Insurance:SELF PAY [facility] Number: Effective Repository Date:2018-01-27 01/26/2018 [facility] [[email or web address]]: [facility] [id number] [facility] [id number] Repository [place] Number: [address] [place] [id number] [place] [address]Uxk: (330) Date:2018-01-21 03420Aaf: () [id number] Name:J CARLOSO Box ()Tel: (000) [address] [place] [address] 000-0000 (WP) 52653MP: 01/19/2018 [facility] Primary [facility]: Insurance:[facility] [[email or web address]]: [facility] [id number] [facility] [id number] Repository [place] Number: [address] [place], [place] [id number] [place] [address]Uqv: (330) Date:2018-01-13 22779Ety: (HP) [id number] Name:XPO Box (HP)Tel: (000) [address] [place] [address] 000-0000 (WP) 91317PH: 01/11/2018 [facility]: Insurance:[facility] [[email or web address]]: [facility] [id number] Repository [place] Number: [address] [place], [place] [id number] [place] [address]Jbk: (330) Date:2018-01-04Tel: (HP) [id number] Name:XPO Box (HP)Tel: (000) [address] [place] [address] 000-0000 (WP) 732[address]WY: 01/07/2018 [facility]: Insurance:[facility] [[email or web address]]: [facility] [id number] Repository [place] Number: [address] [place], [place] [id number] [place] [address]Jvp: (330) Date:2017-12-29Tel: (HP) [id number] Name:XPO Box (HP)Tel: (000) [address] [place] [address] 000-0000 (WP) 70097YB: 01/03/2018 [facility]: Insurance:[facility] [[email or web address]]: [facility] [id number] Repository [place] Number: [address] [place], [place] [id number] [place] [address]Ihc: (330) Date:2017-12-27Tel: (HP) [id number] [phone] Name:XPO Box (HP)Tel: (000) [place], [place] 000-0000 (WP) 14[address]BS: 12/29/2017 [facility]: Insurance:[facility] [[email or web address]]: [facility] [id number] [place] [address] [id number] Repository [place] Number: [address] [place] [id number] [place] [address]Erv: (330) Date:2017-12-29Tel: (HP) [id number] Name:XPO Box (HP)Tel: (000) [address], [place] 000-0000 (WP) 90[address]KW: 12/28/2017 [facility]: Insurance:[facility] [[email or web address]]: [facility] [id number] [place] [address] [id number] Repository [place] Number: [address] [place], [place] [id number] [place] [address]Ivp: (330) Date:2017-12-22Tel: (HP) [id number] [phone] Name:XPO Box (HP)Tel: (000) [address], [place] 000-0000 (WP) 22793LL: 12/27/2017 [facility]: Insurance:[facility] [[email or web address]]: [facility] [id number] Repository [place] Number: [address] [place], [place] [id number] [place] [address]Kom: (330) Date:2017-12-22Tel: (HP) [id number] Name:XPO Box (HP)Tel: (000) [address] [place] [address] 000-0000 (WP) 40933TH: 12/17/2017 [facility]: Insurance:[facility] [[email or web address]]: [facility] [id number] Repository [place] Number: [address] [place], [place] [id number] [place] [address]Lxy: (330) Date:2017-12-17Tel: (HP) [id number] [phone] Name:XPO Box (HP)Tel: (000) [address] [place] [address] 000-0000 (WP) 31877KM: 12/09/[address] [facility]: Insurance:[facility] [[email or web address]]: [facility] [id number] Repository [place] Number: [address] [place], [place] [id number] [place] [address]Trw: (330) Date:2017-12-09Tel: (HP) [id number] [phone] Name:XPO Box (HP)Tel: (000) [address] [place] [address] 000-0000 (WP) 64719NP: 12/09/[address] [facility]: Insurance:[facility] [[email or web address] [id number] Repository [place] Number: [address] [place] [id number] [place] [address]Jld: (330) Date:2017-12-09Tel: (HP) [id number] Name:XPO Box (HP)Tel: (000) [address] [place] [address] 000-0000 (WP) 02205EI: 12/03/2017 [facility] [[email or web address]]: [facility] [id number] Repository [place] Number: [address] [place] [id number] [place] [address]Bjm: (330) Date:2017-12-03Tel: (HP) [id number] [phone] Name:XPO Box (HP)Tel: (000) [address] [place] [address] 000-0000 (WP) 03561FF: 12/02/[address] [facility]: Insurance:[facility] [[email or web address] [id number] Repository [place] Number: [address] [place], [place] [id number] [place] [address]Ifr: (330) Date:2017-12-02Tel: (HP) [id number] [phone] Name:XPO Box (HP)Tel: (000) [address] [place] [address] 000-0000 (WP) 16825XM: 11/19/[address] [facility]: Insurance:[facility] [[email or web address]]: [facility] [id number] Repository [place] Number: [address] [place], [place] [id number] [place] [address]Vmm: (330) Date:2017-11-18Tel: (HP) [id number] [phone] Name:XPO Box (HP)Tel: (000) [address], [place] 000-0000 (WP) 94[address]AW: 11/18/2017 [facility] [employer] [id number] Repository [place] Number: [address] [place], [place] [id number] [place], [place] [address]Jjy: 330) Date:2017-11-1854835Pyu: () [id number] [phone] Name:J CARLOSO Debra ()Tel: (928) [address], [place] [phone] (WP) [address]PN: 11/01/2017 [facility]: [facility] PAYPolicy Number: [id number] Repository [place] Effective [address] [place] Date:2017-10-28 [place] [address] [id number] Name:8 [id number]: (WP) 10/27/2017 [facility]: Insurance:SELF [facility]: [facility] PAYPolicy Number: [id number] Repository [place] Effective [address] [place] Date:2017-10-27 [place] [address] [id number] Name:8 [id number]: (WP) 10/13/2017 [facility]: Insurance:SELF [facility]: [facility] PAYPolicy Number: [id number] Repository [place] Effective [address] [place] Date:2017-10-13 [place] [address] [id number] Name:8 [id number]: (WP) 10/13/2017 [facility]: Insurance:SELF [facility] [id number] PAYPolicy Number: [id number] Repository NAVA Effective [address] Date:2017-10-13 [place] [address] [id number] Name:8 [id number]: (WP)
== END ==
PROVIDERS: Referring Provider Nurse Practitioner Acute Care; Visit Provider Nurse Practitioner Acute Care
DX: R19.8 Other specified symptoms and signs involving the digestive system and abdomen (principal)
CPT/HCPCS: 36430; 71250; 86900; J7040; P9017; A4216

== ENCOUNTER 2018-05-31 14:30 | Inpatient (IN) | payer SELFPAY ==
[2018-05-04 10:54] VITALS: BMI 20.9
[2018-05-31] VITALS (10 sets, daily range): BP systolic 104–136; BP diastolic 27–93; PULSE 71–100; RESP 15–20; TEMP 36.1–36.7; O2SAT 96–100; BMI 19.5; BMI 20.9; BMI 21.0
--- NOTE | 2018-05-31 14:51 | CT_ITS ---
STUDY: CT ABDOMEN AND PELVIS WITHOUT CONTRAST REASON FOR EXAM: Female, 58 years old. Upper abdominal pain. Cirrhosis. RADIATION DOSAGE (If Supplied By Facility): CTDIvol = ( 7.89 ) mGy, DLP = ( 360.52 ) mGycm TECHNIQUE: Transaxial images were obtained from the dome of the diaphragm to the symphysis pubis with oral contrast, and without intravenous contrast. Sagittal and coronal images were reconstructed. Individualized dose optimization techniques were used for this CT. COMPARISON: None. FINDINGS: Streaky subsegmental atelectasis seen in both lower lobes. The visualized portions of the heart are within normal limits. There is a diffuse contour abnormality of the liver consistent with cirrhotic changes. Gallbladder is distended with no definite stones or wall thickening. Normal spleen. Normal pancreas. Normal bilateral adrenal glands. Normal right kidney. Normal left kidney. Grossly normal appearance of the stomach. Numerous mildly distended loops of small bowel with thickened marshall suggestive of enteritis. No gross evidence for obstruction. Large bowel is normal caliber. It also may have wall thickening. Grossly normal appendix. There is diffuse atherosclerotic calcification of the abdominal aorta, without a demonstrated aneurysm. Normal inferior vena cava. Normal retroperitoneum. Moderate to marked ascites in all quadrants. Increased density of the abdominal, pelvic, and mesenteric fat most consistent with edema. Normal urinary bladder. Normal size and lobulated uterus with a few calcifications, consistent with fibroids. Normal abdominal wall. Skeletal structures show diffuse mineralization. Numerous compression fractures of indeterminate age. Prominent multilevel degenerative changes particularly of the facet joints. CT/Abdomen/Pelvis without Cont IMPRESSION: Cirrhosis and ascites. Distended gallbladder without stones. Cannot exclude hydrops. Bowel wall thickening consistent with antritis and possibly colitis. Fibroid uterus. Demineralization and numerous compression fractures. Electronically Signed: Eduar Gill MD at 17:33 EST , Service support ,
--- NOTE | 2018-05-31 14:52 | EKG12_ITS ---
Test Reason : ABDOMINAL PAIN Blood Pressure : / mmHG Vent. Rate : 080 BPM Atrial Rate : 080 BPM P-R Int : 164 ms QRS Dur : 068 ms QT Int : 392 ms P-R-T Axes : -19 034 033 degrees QTc Int : 452 ms Normal sinus rhythm Low voltage QRS Borderline ECG Confirmed by SARAVANAN BABCOCK, COLUMBA ([id number]), associate editor MIGUEL FERNANDES ([id number]) on 06/02/2018 3:41:46 PM Referred By: José Miranda Confirmed By:COLUMBA COE MD
--- NOTE | 2018-05-31 14:53 | ED.VISSUMM ---
- ER Visit Summary Date of Service: 05/31/18 Chief Complaint: Abdominal pain, nausea and vomiting History of Present Illness: The patient is a 58 F who presents for 5 days of worsening abdominal pain and 3 days of nausea and vomiting. Patient has a history of cirrhosis and receives a weekly therapeutic paracentesis. 5 days ago she began having epigastric pain beyond her baseline. She had her therapeutic paracentesis and an albumin infusion the next day, with no improvement of her pain. 3 days ago she began having nausea and vomiting. She has not kept anything down since then. She denies any coffee-ground emesis or hematemesis. She denies diarrhea and states her stools were normal but then decreased in frequency. Today she had a black mucousy stool. She denies fever, chest pain, shortness of breath beyond her baseline, or any other complaints. Patient is a smoker and has lung issues. She uses an albuterol inhaler. She has not been able to keep any of her medications down since Wednesday. Physical Examination: Vital signs: afebrile, hemodynamically stable, no hypoxia on room air General: Cachectic with a protruding abdomen, in no distress Skin: warm, dry, no rash, no pallor, old bruises noted on the upper extremities HEENT: normocephalic and atraumatic; PERRL, EOMI, dry mucous membranes Cardiovascular: regular rate and rhythm without murmurs, no peripheral edema, 2+ pulses all distal extremities Respiratory: No increased work of breathing, lungs are diffusely rhonchorous consistent with smoker's lung Abdominal: Abdomen is distended, diffuse tenderness especially in the epigastrium, no guarding or rebound, no masses, rectal exam showed good tone, nontender, brown stool on glove MSK: Moves all extremities, no deformities, normal strength Neuro: Awake and alert, oriented ?4. No facial droop, sensation and motor function intact and symmetric Test Results: Abnormal Lab Results 05/31/18 05/31/18 05/31/18 15:20 15:20 15:20 WBC 17.2 H RBC 3.29 L Hgb 9.8 L Hct 29.5 L MCV 89.7 MCH 29.8 MCHC 33.2 RDW 18.6 H RDW Differential 60.9 H Plt Count 256 MPV 10.1 Immature Gran % (Auto) 0.300 Neut % (Auto) 81.2 H Lymph % (Auto) 10.8 L Cataño % (Auto) 7.3 Eos % (Auto) 0.3 Baso % (Auto) 0.1 Absolute Neuts (auto) 14.0 H Absolute Lymphs (auto) 1.85 Total Counted Not Reportable PT 20.8 H INR 1.8 APTT 35.0 Sodium 132 L Potassium 4.0 Chloride 102 Carbon Dioxide 18.0 L Anion Gap 12 BUN 50 H Creatinine 3.41 H Estim Creat Clear Calc 13.03 Est GFR (MDRD) Af Amer 18 L Est GFR (MDRD) Non-Af 15 L BUN/Creatinine Ratio 14.7 Glucose 117 H Calcium 8.0 L Total Bilirubin 3.10 H AST 120 H ALT 50 Alkaline Phosphatase 184 H Troponin I 0.048 H Total Protein 7.0 Albumin 2.9 L Globulin 4.1 Albumin/Globulin Ratio 0.7 L Lipase 257 Medications Given Albumin Human () 25 gm in 100 mls @ 60 mls/hr IV X1 ONE Stop: 05/31/18 18:27 Discontinued Medications Sodium Chloride () 1,000 mls @ 500 mls/hr IV .Q2H ONE Stop: 05/31/18 16:50 Last Admin: 05/31/18 15:16 Dose: 500 mls/hr Piperacillin Sod/Tazobactam Sod (Zosyn) 3.375 gm in 50 mls @ 100 mls/hr IV X1 ONE Stop: 05/31/18 17:08 Morphine Sulfate () 4 mg IV X1 ONE Stop: 05/31/18 14:52 Last Admin: 05/31/18 15:16 Dose: 4 mg Morphine Sulfate () 4 mg IV X1 ONE Stop: 05/31/18 17:13 Ondansetron HCl (Zofran) 4 mg IV X1 ONE Stop: 05/31/18 14:52 Last Admin: 05/31/18 15:16 Dose: 4 mg Emergency Department Course and Treatment: Patient was given IV fluids, morphine and Zofran for symptomatic relief. Patient is afebrile. Because her main pain complaint is epigastric, and there is little differentiation in her habitus between her epigastrium and her lower substernal region, EKG and troponin were included in the workup. EKG showed NSR with no ischemic changes. Because patient does have severe cirrhosis with ascites, spontaneous bacterial peritonitis is high on the differential. CT abdomen and pelvis was performed to look for alternative causes of patient's abdominal pain. She does have significant leukocytosis of 17,000. Because of the worse pain than normal and the leukocytosis, a therapeutic paracentesis was performed and patient was started empirically on Zosyn for treatment of spontaneous bacterial peritonitis. Fluid analysis is pending. Patient was also given albumin, as she has elevated bilirubin, creatinine, and hypoalbuminemia. Diagnostic Paracentesis procedure note: Consent was obtained. A large fluid pocket in the lateral left lower quadrant was identified using bedside ultrasound. The area was prepped and draped in a sterile fashion. The area was locally anesthetized with 1% lidocaine. A small sherman was performed to the skin and a 21-gauge needle was introduced into the peritoneal cavity. There was immediate return of clear yellow ascitic fluid. 40 cc was collected. The needle was withdrawn and patient tolerated the procedure well. No ascitic fluid leak was noted. There was no hemorrhage after the procedure. Patient was discussed with Dr. Miranda and admitted for IV antibiotics and further treatment of suspected spontaneous bacterial peritonitis while the cultures are pending. Treatment Plan: [] Disposition: Impression: Abdominal pain, history of cirrhosis with ascites, concern for spontaneous bacterial peritonitis, chronic kidney disease This note was generated with [employer] dictation software. It may contain incorrect words, spelling, and punctuation that were not noted in review of the chart prior to signing ED Disposition - Plan for ED Patient: Chief Complaint: Abd Pain Referrals: Anish Bass,Katharine Handy [Primary Care Provider] -
--- NOTE | 2018-05-31 14:57 | NURSING ---
NO OLD EKGS
[2018-05-31] MEDS: 0.9% Normal Saline 1,000 ML 500 ML IV (15:16)
[2018-05-31] MEDS: Morphine 4 MG/ML Syringe IV (15:16)
[2018-05-31] MEDS: Ondansetron 4 MG/2 ML Vial IV (15:16)
[2018-05-31 15:26] LABS: Absolute Lymphocyte Count 1.85 X10^3/ul (0.83-4.51); Basophil# 0.02 X10^3/uL; Basophil% 0.1 % (0-1); Eosinophil# 0.06 X10^3/uL; Eosinophils% 0.3 % (0-5); Hematocrit 29.5 % (37-47); Hemoglobin 9.8 g/dl (12.0-15.0); Lymphocyte # 1.85 X10^3/ul (4.0); Lymphocyte % 10.8 % (19-41); Mean Corp Hgb Conc 33.2 g/gl (32-36); Mean Corpuscular Hgb 29.8 pg (27.0-32.0); Mean Corpuscular Volume 89.7 fL (81-99); Mean Platelet Vol. 10.1 fl (6.2-12.0); Monocyte# 1.25 X10^3/uL; Monocyte% 7.3 % (0-10); Neutrophil # 13.95 X10^3/uL (2.7-7.7); Neutrophil % 81.2 % (47-70); Platelet Count 256 K/mm3 (150-450); RBC Distribution Width CV 18.6 % (11.6-14.6); RBC Distribution Width SD 60.9 fl (35.1-43.9); Red Blood Count 3.29 M/mm3 (4.2-5.4); White Blood Count 17.2 K/mm3 (4.4-11.0)
[2018-05-31 15:31] LABS: POSITIVE COUNT NO; POSITIVE DIFFERENTIAL NO; POSITIVE MORPHOLOGY NO
[2018-05-31 15:47] LABS: ALB/GLOB Ratio 0.7 RATIO (0.9-2.4); AST(SGOT) 120 U/L (15-37); Alanine Aminotransfer ALT/SGPT 50 U/L (13-56); Albumin, Serum 2.9 g/dL (3.2-5.0); Alkaline Phosphatase 184 U/L (45-117); Anion Gap 12 (5-15); BUN 50 mg/dL (7-18); BUN/Creat Ratio 14.7 RATIO (10-20); Chloride 102 mmol/L (98-107); Creatinine, Serum 3.41 mg/dL (0.55-1.02); EST Glomerular Filtration Rate 15 mL/min (>60); Est Glom Filt Rate - Afr Amer 18 mL/min (>60); Estimated Creatinine Clearance 13.03 ml/min; Globulin 4.1 g/dL (2.2-4.2); Glucose 117 mg/dL (74-106); Lipase 257 U/L (73-393); Sodium Level 132 mmol/L (136-145)
[2018-05-31 16:28] LABS: International Normalized Ratio 1.8; Prothrombin Time (Protime)PT. 20.8 SECONDS (11.7-14.9)
--- NOTE | 2018-05-31 16:45 | FLU_PTH ---
PATIENT: KEYLA MATTHEWS LOC: PCU U#:[id number] AGE/SX: 58/F ROOM: DNK206 RE05/31/[address]: Dr. Isai Brown MD : [id number] BED: 1 DIS: 06/03/2018 SPEC #: [id number] RECD: 06/01/18 12:13 STATUS: YAZAN REQ #: [id number] KENNA: 05/31/18 16:[address]: Isai Brown DEPT: CYTOLOGY RECD BY: Gerardo Bruce ENTERED: 06/01/18 12:14 SP TYPE: Fluid OTHR DR: Dr. José Miranda MD [facility] Tissues: PARACENTESIS FLUID Procedures: Pap Stain (control) Special Stain Group II Surgery Specimen Level IV Cell Block Cytospin Fluid HEADER OPERATION: Paracentesis PRE-OP DIAGNOSIS: Ascites TISSUE SUBMITTED: Paracentesis fluid for cytology DIAGNOSIS CYTOLOGY Paracentesis fluid for cytology (cytospin and cell block): Negative for malignant cells. AM:amauri 06/02/18 CYTOLOGY STUDY Slides are reviewed. CYTOLOGY GROSS Received is 2 ml of clear yellow fluid labeled with the patient's name and and designated per the requisition as paracentesis. Submitted for cytology preparation including cell block. / 06/01/18 TC:5 CPT: 18332, 45755
[2018-05-31 17:07] LABS: Cytology, Body Fluid / CSF SEE PATHOLOGY REPORT
--- NOTE | 2018-05-31 17:11 | NURSING ---
DR MAXIMILIANO BARNES
--- NOTE | 2018-05-31 17:15 | NURSING ---
MED SURG ABD PAIN, CIRRHOSIS, CONCERN FO RSBP OBS ASHELFAH
--- NOTE | 2018-05-31 17:21 | CM.ED ---
SOCIAL WORK NOTE REFERRAL DATE: 05/31/18 DATE OF ASSESSMENT: 05/31/18 INFORMANT: NURSE REASON FOR CONSULT: NO INSURANCE-SELF PAY/FINANCIAL RESOURCES/COMMUNITY RESOURCES INFORMATION OBTAINED FROM: PT AND PT'S DTR, CECIL [phone] LIVING ARRANGEMENTS: PT LIVES HOME ALONE IN A 2 STORY HOME WITH 1ST FLOOR SET UP AND 1 STEP TO ENTER. FINANCIAL: PT STATES STARTED RECEIVING SOCIAL SECURITY WHICH PUT HER OVER INCOME FOR MEDICAID. PT'S [facility] PLAN WAS DISCONTINUED ON 05/17/18. SUPPORTS: PT HAS GOOD SUPPORT FROM FAMILY. SOCIAL/FAMILY STRESSORS: PT REPORTS STRESS FROM BEING DROPPED FROM MEDICAID. PT REPORTS WAS GIVEN INFORMATION TO CALL THE [facility] FOR INSURANCE NEEDS AND JUST HASN'T FOLLOWED THROUGH. MENTAL HEALTH HX: PT ADMITS TO FEELINGS OF DEPRESSION FROM TIME TO TIME, BUT DOES NOT FEEL NEED FOR TREATMENT/COUNSELING. SUBSTANCE ABUSE HX: PT ADMITS TO HX OF CRACK COCAINE 15 YEARS AGO. PT ADMITS TO OCCASIONAL USE OF MARIJUANA. INTERVENTION: EDUCATION ON [facility] FOR INSURANCE AND COMMUNITY RESOURCES. ASSESSMENT: PT OS A 58 Y/O FEMALE WHO PRESENTS TO THE ED WITH ABDOMINAL PAIN. PT LIVES HOME ALONE IN A 2 STORY HOME WITH 1ST FLOOR SET UP AND 1 STEP TO ENTER. PT REPORTS IS NORMALLY INDEPENDENT WITH ALL ADLS AND TRANSPORTATION NEEDS. PT REPORTS DOES HAVE A CANE IN THE HOME TO USE FOR ASSISTANCE WITH AMBULATION IF NEEDED. PT FOLLOWS WITH THE [facility] FOR MEDICAL NEEDS. PT STATES GOOD SUPPORT FROM FAMILY AND FRIENDS. DTR, CECIL PRESENT IN ROOM DURING ASSESSMENT WITH PT'S PERMISSION. PT AND DTR EXPLAIN THAT PT LOST MEDICAID ON 05/17/18 SHE WAS DEEMED OVER INCOME FOR SERVICES ONCE SOCIAL SECURITY WAS RECEIVED. PT VOICED FRUSTRATIONS AND IS TEARFUL WHEN DISCUSSING THE INSURANCE PROCESS. EMOTIONAL SUPPORT PROVIDED. PT STATES [facility] ADVISED PT FOLLOW UP WITH THE [facility] FOR INSURANCE NEEDS AND PT STATES SHE JUST HASN'T DONE IT YET. EDUCATION PROVIDED ON THE MARKET PLACE AND OTHER RESOURCES. DTR TO ASSIST PT TOMORROW WITH CALLING [facility] TO INQUIRE ABOUT COVERAGE AND CONTACTING THE [employer] PLACE. ALL QUESTIONS ANSWERED. ANTICIPATE ADMISSION AT THIS TIME. PLAN: ADMIT
[2018-05-31 17:22] LABS: Body Fluid Mononuclear WBC # 0.148 10^3/uL; Body Fluid Mononuclear WBC % 75.9 %; Body Fluid Polynuclear WBC # 0.047 10^3/uL; Body Fluid Polynuclear WBC % 24.1 %; Body Fluid Total Cells Counted 0.237 10^3/ul (0.000-0.000); White Blood Count/Body Fluid 0.195 10^3/uL
[2018-05-31] MEDS: Piperacil/Tazobactam 3.375 GM/50 ML ML IV (17:29)
[2018-05-31 17:45] LABS: Red Cell Count/Body Fluid 61 /mm3
[2018-05-31 17:53] LABS: Appearance/Body Fluid CLEAR; Auto B Fluid Analyzer BKGD Ct COUNTS W/IN LIMITS (W/IN LIMITS); Color/Body Fluid YELLOW; Source- Body Fluid ASCITES FLUID; Specific Gravity, Body Fluid 1.015
[2018-05-31] MEDS: Albumin Human 25% (100 mL) 25 GM/100 ML BAG IV (17:55)
[2018-05-31 18:19] LABS: Body Fluid QC Type(s) BF1Q; Glucose, Body Fluid 109 mg/dL (40-70); LDH,Body Fluid 69 Units/l (Not Establ.); Lymphocytes 20 %; Monocytes 70 %; Neutrophil (Segs) 10 %; Protein, Body Fluid 1.7 g/dL (Not Establ.)
--- NOTE | 2018-05-31 18:21 | ECHOD_ITS ---
Reason For Study: DYSPNEA/SOB Procedure This was a 2D Doppler, Color Flow transthoracic echocardiogram. Exam performed portable in patient room. Left Ventricle Normal size and thickness. The estimated ejection fraction is 65 %. Stage 2 diastolic dysfunction. No regional wall motion abnormalities noted. Right Ventricle Normal size and thickness. Normal systolic function. Atria Normal left atrium. Normal right atrium. Normal atrial septum. Mitral Valve The mitral valve is structurally normal. No prolapse or stenosis seen. Trivial mitral valve insufficiency. Tricuspid Valve Normal tricuspid valve. Trivial tricuspid valve insufficiency. Right ventricular systolic pressure estimated to be 41 mmHg. Mild pulmonary hypertension. Aortic Valve Normal aortic valve. Trisinus/trileaflet aortic valve. Pulmonic Valve Normal pulmonic valve. Great Vessels Normal aortic root. Normal arch. Normal inferior vena cava. Inferior vena cava collapse with sniff. Pericardium/Pleural No pericardial effusion. MMode/2D Measurements & Calculations LVIDd: 4.3 cm IVSd: 0.97 cm Ao root diam: 2.7 cm LVIDs: 3.0 cm LVPWd: 0.96 cm RVDd: 3.2 cm FS: 30.6 % LAV(MOD-bp): 64.1 ml LA A4 area: 20.6 cm2 LA dimension(2D): 4.2 cm LAV(MOD-bp) Indexed: 44.8 ml/m2 LAV(MOD-sp2): 63.5 ml LAV(MOD-sp4): 63.1 ml RA A4 area: 16.7 cm2 Doppler Measurements & Calculations MV E max julio: 138.7 cm/sec Lat Peak E' Julio: 12.0 cm/sec Med Peak E' Julio: 11.9 cm/sec MV A max julio: 122.8 cm/sec E/E' lat: 11.5 E/E' med: 11.6 MV E/A: 1.1 Ao V2 max: 171.1 cm/sec LV V1 max: 121.0 cm/sec PA V2 max: 126.5 cm/sec Ao max P.7 mmHg LV V1 max P.9 mmHg Ao V2 mean: 106.5 cm/sec Ao mean P.2 mmHg Ao V2 VTI: 32.6 cm Interpretation Summary The estimated ejection fraction is 65 %. Stage 2 diastolic dysfunction. Trivial mitral valve insufficiency. Trivial tricuspid valve insufficiency. Right ventricular systolic pressure estimated to be 41 mmHg. Mild pulmonary hypertension. There is no comparison study available. Ordering Physician: José Miranda Referring Physician: STUART WRIGHT [facility] Performed By: Kriss Weir RDCS, RVT
--- NOTE | 2018-05-31 18:36 | HP.PCM_ITS ---
Problem List (1) Anemia Status: Acute (2) Renal failure Status: Acute (3) Spontaneous bacterial peritonitis Status: Suspected (4) Alcoholic cirrhosis of liver Status: Chronic (5) Tobacco abuse Status: Chronic (6) Stage 1 mild COPD by GOLD classification Status: Chronic (7) Lung mass Status: Chronic History of Present Illness Date of Admission: 05/31/18 Chief Complaint: Abdominal pain. The patient is a 58 year old F with past medical history as mentioned above presented to the emergency room because of abdominal pain. Her symptoms started 4 days ago with abdominal pain, mainly epigastric in location, dull aching pain, 8 out of 10 severity, extends down to both sides of the upper abdomen, associated with nausea and vomiting and without aggravating or relieving factors. She denies fever or chills. One day after she started having abdominal pain, she went for paracentesis and that did not change her pain. Her pain continued to worsen and she decided to come to the ER today. She denied ch est pain or shortness of breath. She denied cough or sputum production. In the emergency department, her vital signs were stable, was afebrile. Her routine blood work was remarkable for leukocytosis, hemoglobin of 9.8 g/dL, sodium of 132, BUN 50 and creatinine 3.41. LFT revealed total bilirubin of 3.1, AST of 120, alkaline phosphatase of 184 and ALT which was normal. EKG revealed sinus tachycardia, heart rate has been around 100, no acute ischemic changes. Troponin is 0.048. Lipase was normal. CT scan abdomen and pelvis without contrast revealed cirrhosis with ascites, bowel wall thickening consistent with enteritis and possibly colitis. She is being admitted for suspected spontaneous bacterial proctitis as well as possible enteritis and colitis. Also, she was found to have anemia as well as renal failure which are not clear if they are acute or chronic. Past Medical History Past Medical History (Chronic Problems): Chronic Problems (Last Reviewed 05/04/18 @ 13:46 by YEMI Caldwell) Alcoholic cirrhosis of liver (Chronic) Tobacco abuse (Chronic) Stage 1 mild COPD by GOLD classification (Chronic) Lung mass (Chronic) Medical History: Medical History (Last Reviewed 05/04/18 @ 13:46 by YEMI Caldwell) Alcoholic cirrhosis of liver with ascites K70.31 Chronic obstructive pulmonary disease J44.9 Cirrhosis K74.60 Hypothyroidism E03.9 Nicotine dependence, uncomplicated F17.200 Nutritional anemia D53.9 Allergies No Known Allergies Allergy (Verified 05/31/18 14:33) Home Medications: Ambulatory Orders Medication Instructions Recorded cholecalciferol (vitamin D3) 50,000 unit PO QWEEK 02/28/18 50,000 unit capsule hydroxyzine HCl 10 mg tablet 10 mg PO Q8 PRN 02/28/18 pantoprazole 40 mg tablet,delayed 40 mg PO DAILY 02/28/18 release Levothyroxine [Synthroid] 25 mcg PO DAILY 05/31/18 Tiotropium Br/Olodaterol HCl 2 puff INHALATION BID 05/31/18 [Stiolto Respimat Inhal [place]] Surgical History: Surgical History (Last Reviewed 05/04/18 @ 13:46 by YEMI Caldwell) H/O dilation and curettage Z98.890 18 yo miscarriage Surgical History: noncontributory Psychiatric History: No pertinent psych hx SPORTS INFORMATION DIRECTOR History: No pertinent SPORTS INFORMATION DIRECTOR history Lives: With Family Smoking Status: Current every day smoker Tobacco Use: Cigarettes Alcohol: None Drugs: None - *Family History Maternal Family History: Family History (Last Reviewed 05/04/18 @ 13:46 by YEMI Caldwell) Father Myocardial infarction Mother Heart disease Kidney disease Liver disease Brother Brain cancer History Items: No pertinent history Paternal Family History: Family History (Last Reviewed 05/04/18 @ 13:46 by YEMI Caldwell) Father Myocardial infarction Mother Heart disease Kidney disease Liver disease Brother Brain cancer History Items: No pertinent history Review of Systems Constitutional: Reports: Anorexia. Denies: Chills, Fever, Weakness Eyes: Denies: Blurred vision, Double vision, Drainage, Redness HEENT: Denies: Difficulty Hearing, Ear Pain, Eye Pain, Nasal Congestion, Sore Throat Cardiovascular: Denies: Chest Pain, Chest Pressure, Chest Tightness, Edema, Heaviness, Palpitations, Syncope Respiratory: Denies: Cough, Hemoptysis, Pleuritic Pain, Shortness of Breath, Sputum production, Wheezing Gastrointestinal: Reports: Abdominal Pain, Nausea, Vomiting. Denies: Constipation, Diarrhea Genitourinary: Denies: Dysuria, Frequency, Hematuria Musculoskeletal: Denies: Arm Pain, Back Pain, Foot Pain Skin: Denies: Dryness, Rash Neurological: Denies: Balance problems, Double vision, Change in Speech, Slurred speech, Confusion, Headaches, Incoordination, Numbness Psychiatric: Denies: Anxiety, Depression Endocrine: Denies: Change in Body Habitus, Polydipsia VTE Information - Inpt Only VTE Present on Admission: No VTE Mechan Device Prophylaxis: None VTE Pharm Prophylaxis ordered?: Yes Patient Problems: Active and Suspected Problems (Last Reviewed 05/04/18 @ 13:46 by Tasia Jenkins NP-C) Anemia (Acute) Renal failure (Acute) Spontaneous bacterial peritonitis (Suspected) - Physical Exam General: Alert, Oriented x3, Cooperative, No apparent distress HEENT: Atraumatic, PERRLA, EOMI, Normocephalic Oral: Moist Mucosa Neck: Supple, No JVD, Negative Carotid Bruits, Trachea Midline, Thyroid Normal Size and Texture Lungs: Clear to auscultation, No rhonchi, No wheeze, No rales, Diminished Cardiovascular: Regular rate, Regular Rhythm, Normal S1, Normal S2, PMI Normal Abdomen: Bowel Sounds Present, Soft, No Hepato-splenomegaly, Distended, Tender - Minimal tenderness. No guarding or rigidity., - - Ascites. Extremities: No clubbing, No cyanosis, No edema Skin: No rashes, No breakdown Lymphatic: No Cervical, Supraclavicular, or Inguinal Adenopathy Neurological: Cranial nerves II-XII grossly intact, Motor Exam 5/5 strength throughout Psych/Mental Status: Normal Affect, Appropriate, Alert and oriented to time, place, person, mood and affect Vital Signs Temp Pulse Resp BP Pulse Ox 97.8 F 73 19 H 111/27 L 97 05/31/18 15:46 05/31/18 18:03 05/31/18 18:03 05/31/18 18:03 05/31/18 18:03 Oxygen Delivery Method Room Air Weight: 107 lb 5.842 oz Body Mass Index (BMI) 20.9 Microbiology Past 72 Hours 05/31/18 15:20 Stool Occult Blood (VERONIKA) - Final Stool Occult Blood Positive Laboratory Tests Past 24 Hrs 05/31/18 05/31/18 05/31/18 15:20 15:20 15:20 WBC 17.2 H RBC 3.29 L Hgb 9.8 L Hct 29.5 L MCV 89.7 MCH 29.8 MCHC 33.2 RDW 18.6 H RDW Differential 60.9 H Plt Count 256 MPV 10.1 Immature Gran % (Auto) 0.300 Neut % (Auto) 81.2 H Lymph % (Auto) 10.8 L [place] % (Auto) 7.3 Eos % (Auto) 0.3 Baso % (Auto) 0.1 Absolute Neuts (auto) 14.0 H Absolute Lymphs (auto) 1.85 Total Counted Not Reportable PT 20.8 H INR 1.8 APTT 35.0 Sodium 132 L Potassium 4.0 Chloride 102 Carbon Dioxide 18.0 L Anion Gap 12 BUN 50 H Creatinine 3.41 H Estim Creat Clear Calc 13.03 Est GFR (MDRD) Af Amer 18 L Est GFR (MDRD) Non-Af 15 L BUN/Creatinine Ratio 14.7 Glucose 117 H Calcium 8.0 L Total Bilirubin 3.10 H AST 120 H ALT 50 Alkaline Phosphatase 184 H Troponin I 0.048 H Total Protein 7.0 Albumin 2.9 L Globulin 4.1 Albumin/Globulin Ratio 0.7 L Lipase 257 Fluid Source Fluid Color Fluid Appearance Fluid Specific Grav Fluid pH Fluid WBC Fluid RBC Fluid Tot Cell Count Fld Polynuclear WBCs # Fld Polynuclear WBCs % Fluid Mononuclear WBCs Fld Mononuclear WBCs % Fluid Neutrophils Fluid Lymphocytes Fluid Monocytes Fl Pathologist Comment Fluid Glucose Fluid Total Protein Fluid LDH Fluid Amylase Fluid Comment 2 Miscellaneous Cytology Miscellaneous Test 05/31/18 05/31/18 05/31/18 16:50 16:50 16:50 WBC RBC Hgb Hct MCV MCH MCHC RDW RDW Differential Plt Count MPV Immature Gran % (Auto) Neut % (Auto) Lymph % (Auto) [place] % (Auto) Eos % (Auto) Baso % (Auto) Absolute Neuts (auto) Absolute Lymphs (auto) Total Counted PT INR APTT Sodium Potassium Chloride Carbon Dioxide Anion Gap BUN Creatinine Estim Creat Clear Calc Est GFR (MDRD) Af Amer Est GFR (MDRD) Non-Af BUN/Creatinine Ratio Glucose Calcium Total Bilirubin AST ALT Alkaline Phosphatase Troponin I Total Protein Albumin Cancelled Globulin Albumin/Globulin Ratio Lipase Fluid Source Fluid Color Fluid Appearance Fluid Specific Grav Fluid pH Cancelled Fluid WBC Fluid RBC Fluid Tot Cell Count Fld Polynuclear WBCs # Fld Polynuclear WBCs % Fluid Mononuclear WBCs Fld Mononuclear WBCs % Fluid Neutrophils Fluid Lymphocytes Fluid Monocytes Fl Pathologist Comment Fluid Glucose 109 H Fluid Total Protein 1.7 Fluid LDH 69 Fluid Amylase Pending Fluid Comment 2 Miscellaneous Cytology Miscellaneous Test 05/31/18 05/31/18 05/31/18 16:50 16:50 16:50 WBC RBC Hgb Hct MCV MCH MCHC RDW RDW Differential Plt Count MPV Immature Gran % (Auto) Neut % (Auto) Lymph % (Auto) [place] % (Auto) Eos % (Auto) Baso % (Auto) Absolute Neuts (auto) Absolute Lymphs (auto) Total Counted PT INR APTT Sodium Potassium Chloride Carbon Dioxide Anion Gap BUN Creatinine Estim Creat Clear Calc Est GFR (MDRD) Af Amer Est GFR (MDRD) Non-Af BUN/Creatinine Ratio Glucose Calcium Total Bilirubin AST ALT Alkaline Phosphatase Troponin I Total Protein Albumin Globulin Albumin/Globulin Ratio Lipase Fluid Source ASCITES FLUID Fluid Color YELLOW Fluid Appearance CLEAR Fluid Specific Grav 1.015 Fluid pH Fluid WBC 0.195 Fluid RBC 61 Fluid Tot Cell Count 0.237 H Fld Polynuclear WBCs # 0.047 Fld Polynuclear WBCs % 24.1 Fluid Mononuclear WBCs 0.148 Fld Mononuclear WBCs % 75.9 Fluid Neutrophils 10 Fluid Lymphocytes 20 Fluid Monocytes 70 Fl Pathologist Comment May follow Fluid Glucose Fluid Total Protein Fluid LDH Fluid Amylase Fluid Comment 2 SEE COMMENT Miscellaneous Cytology Pending Miscellaneous Test Pending Clinical Impression(s) from Imaging Studies Abdomen/Pelvis CT 05/31/18 14:51 IMPRESSION: Cirrhosis and ascites. Distended gallbladder without stones. Cannot exclude hydrops. Bowel wall thickening consistent with antritis and possibly colitis. Fibroid uterus. Demineralization and numerous compression fractures. Electronically Signed: Eduar Gill MD at 17:33 EST , Service support , Assessment/Plan All Active Problems (Last Reviewed 05/04/18 @ 13:46 by YEMI Caldwell) Anemia (Acute) Renal failure (Acute) This is a 58 years old female patient presented to the ED because of abdominal pain in context of history of alcoholic liver cirrhosis, underwent diagnostic paracentesis in the ER and started on IV antibiotics for suspected spontaneous bacterial peritonitis and a CT scan abdomen and pelvis revealed cirrhosis with ascites and findings consistent with enteritis and possible colitis. #1 suspected spontaneous bacterial peritonitis: Patient had paracentesis when the after he has been started. Also, she had diagnostic paracentesis in the ED today by the ER physician, ascitic fluid analysis pending. She does have leukocytosis, she is afebrile, blood pressure noted are stable. CT scan abdomen and pelvis reviewed as above. Plan: Admit to PCU, cardiac monitoring, start IV Rocephin and IV Flagyl, follow ascitic fluid analysis, repeat CBC and CMP tomorrow morning, PT OT evaluation and treatment. #2 possible enteritis/colitis: CT scan reviewed as above. Patient denied any diarrhea or fever. Plan: IV Rocephin and Flagyl as above, IV fluids, IV morphine as needed for pain, Zofran as needed. #3 indeterminate troponin: Without chest pain. EKG revealed normal sinus rhythm without evidence of acute ischemic changes. Plan: Serial cardiac enzymes, repeat EKG in the morning, 2D echocardiogram. #4 normocytic anemia: Unknown if this is acute or chronic. No previous blood work available in her chart. Plan: Obtain medical records from PCPs office, repeat CBC tomorrow morning, iron studies, stool for occult blood. #5 renal failure: Again, baseline creatinine is unknown and it is unclear if this is acute or chronic. Admission creatinine is 3.41. Plan: IV fluids, and Protopic chart, repeat BMP tomorrow morning, obtain records from PCPs office. #6 alcoholic liver cirrhosis: She is not on maintenance treatment. Will check ammonia level and she has been having bowel movements every day. No evidence of evidence of adenopathy. #7 COPD: DuoNeb every 6 hours, albuterol as needed, incentive spirometer. #8 lung mass: According to the patient, she is supposed to go for lung biopsy b wi repeat CT scan chest revealed smaller lung mass and was recommended for follow-up with CT scan chest later. #9 DVT prophylaxis: Subcu heparin. This note was generated with [employer] dictation software. It may contain incorrect words, spelling, and punctuation that were not noted in checking the note before signing. Code Visit Inpatient E&M: 42341 Init Hosp L3
[2018-05-31] MEDS: 0.9% Normal Saline 1,000 ML 100 ML IV (19:46)
[2018-05-31] MEDS: Ipratropium/Albuterol Sulfate 3 ML AMPUL.NEB INHALATION (19:50)
[2018-05-31] MEDS: Heparin Injection (Vial) 5,000 UNIT/ML VIAL 5000 UNIT SC (22:07)
[2018-06-01] VITALS (20 sets, daily range): BP systolic 92–129; BP diastolic 54–77; PULSE 77–96; RESP 16–18; TEMP 36.6–37; O2SAT 94–100
--- NOTE | 2018-06-01 | FLU_PTH ---
PATIENT: KEYLA MATTHEWS LOC: PCU U#:[id number] AGE/SX: 58/F ROOM: [facility] RE05/31/[address]: Dr. Isai Brown MD : 1960 BED: 1 DIS: 06/03/2018 SPEC #: [id number] RECD: 06/01/18 15:22 STATUS: YAZAN REQ #: [id number] KENNA: 06/01/18 00:[address]: Isai Brown DEPT: CYTOLOGY RECD BY: Gerardo Bruce ENTERED: 06/02/18 09:22 SP TYPE: Fluid OTHR DR: Dr. José Miranda MD [facility] Tissues: PARACENTESIS FLUID Procedures: Pap Stain (control) Special Stain Group II Surgery Specimen Level IV Cell Block Cytospin Fluid HEADER OPERATION: Ultrasound-guided right paracentesis PRE-OP DIAGNOSIS: Ascites TISSUE SUBMITTED: Paracentesis fluid for cytology DIAGNOSIS CYTOLOGY Paracentesis fluid for cytology (cytospin and cell block): Negative for malignant cells. AM:amauri 06/03/18 CYTOLOGY STUDY Slides are reviewed. CYTOLOGY GROSS Received is 50 ml of clear yellow fluid labeled with the patient's name and and designated per the requisition as paracentesis. Submitted for cytology preparation including cell block. 06/02/18 TC:5 CPT: 52526, 72801
[2018-06-01] MEDS: Ipratropium/Albuterol Sulfate 3 ML AMPUL.NEB INHALATION ×2 (00:56→19:08)
[2018-06-01] MEDS: Morphine 2 MG/ML Syringe 1 MG IV ×5 (02:46→20:49)
[2018-06-01] MEDS: Levothyroxine 25 MCG TABLET PO (05:06)
[2018-06-01 06:28] LABS: Absolute Lymphocyte Count 1.56 X10^3/ul (0.83-4.51); Absolute Neutrophil Count 7.3 X10^3/uL (2.0-7.7); Basophil# 0.02 X10^3/uL; Basophil% 0.2 % (0-1); Eosinophil# 0.09 X10^3/uL; Eosinophils% 0.9 % (0-5); Hematocrit 23.7 % (37-47); Hemoglobin 7.9 g/dl (12.0-15.0); Lymphocyte # 1.56 X10^3/ul (4.0); Lymphocyte % 15.8 % (19-41); Mean Corp Hgb Conc 33.3 g/gl (32-36); Mean Corpuscular Hgb 29.9 pg (27.0-32.0); Mean Corpuscular Volume 89.8 fL (81-99); Mean Platelet Vol. 9.7 fl (6.2-12.0); Monocyte# 0.82 X10^3/uL; Monocyte% 8.3 % (0-10); Neutrophil # 7.34 X10^3/uL (2.7-7.7); Neutrophil % 74.6 % (47-70); Platelet Count 195 K/mm3 (150-450); RBC Distribution Width CV 18.7 % (11.6-14.6); RBC Distribution Width SD 58.3 fl (35.1-43.9); Red Blood Count 2.64 M/mm3 (4.2-5.4); White Blood Count 9.9 K/mm3 (4.4-11.0)
[2018-06-01 06:40] LABS: ALB/GLOB Ratio 0.9 RATIO (0.9-2.4); AST(SGOT) 97 U/L (15-37); Alanine Aminotransfer ALT/SGPT 41 U/L (13-56); Albumin, Serum 2.9 g/dL (3.2-5.0); Alkaline Phosphatase 151 U/L (45-117); Anion Gap 12 (5-15); BUN 47 mg/dL (7-18); BUN/Creat Ratio 15.5 RATIO (10-20); Calcium,Total 7.5 mg/dL (8.5-10.1); Chloride 107 mmol/L (98-107); Creatinine, Serum 3.03 mg/dL (0.55-1.02); EST Glomerular Filtration Rate 17 mL/min (>60); Est Glom Filt Rate - Afr Amer 20 mL/min (>60); Estimated Creatinine Clearance 14.71 ml/min; Globulin 3.3 g/dL (2.2-4.2); Glucose 93 mg/dL (74-106); Potassium 3.4 mmol/L (3.5-5.1); Protein, Total 6.2 g/dL (6.4-8.2); Sodium Level 134 mmol/L (136-145)
[2018-06-01 06:41] LABS: POSITIVE COUNT NO; POSITIVE DIFFERENTIAL NO; POSITIVE MORPHOLOGY NO
[2018-06-01 06:55] LABS: International Normalized Ratio 1.9; Prothrombin Time (Protime)PT. 21.5 SECONDS (11.7-14.9)
[2018-06-01] MEDS: 0.9% Normal Saline 1,000 ML 100 ML IV ×2 (08:25→20:19)
[2018-06-01] MEDS: 0.9% NaCl Peripheral Flush Adult/Peds IV ×3 (08:28→16:47)
[2018-06-01 11:35] LABS: Pathologist Comment/Body Fluid Reviewed
--- NOTE | 2018-06-01 13:26 | PN_ITS ---
<Sebastien Frances - Last Filed: 06/01/18 13:17> Patient Problems: Active and Suspected Problems (Last Reviewed 05/04/18 @ 13:46 by Tasia Jenkins NP-C) Anemia (Acute) Renal failure (Acute) Spontaneous bacterial peritonitis (Suspected) Subjective: Pt admitted last night for SBP, symptoms began after last scheduled outpatient para. She has these done weekly at [facility]. She currently c/o ongoing RUQ and midepigastric abdominal pain with pain radiating into her back. No fever or chills. She has some diarrhea, no rufus blood noted. She has no N/V. - Physical Exam General: Alert, Oriented x3, Cooperative HEENT: Atraumatic, PERRLA, EOMI, Normocephalic Neck: Supple, No JVD, Negative Carotid Bruits Lungs: Clear to auscultation, Normal air movement Cardiovascular: Regular rate, No murmurs Abdomen: Bowel Sounds Present, Soft, Tender - RUQ Extremities: No edema, Capillary Refill Less than 3 Seconds Skin: No rashes, No breakdown Musculoskeletal: No Tenderness to Palpation of Joints or Extremities Neurological: Cranial nerves II-XII grossly intact Psych/Mental Status: Normal Affect, Appropriate, Alert and oriented to time, place, person, mood and affect Vital Signs Temp Pulse Resp BP Pulse Ox 98.0 F 85 17 104/63 97 06/01/18 12:42 06/01/18 12:42 06/01/18 12:42 06/01/18 12:42 06/01/18 12:42 Oxygen Delivery Method Room Air Weight: 107 lb 5.842 oz Body Mass Index (BMI) 20.9 Intake and Output for Last 24 Hours 05/30/18 05/31/18 06/01/18 23:59 23:59 23:59 Intake Total 350 / 350 2152 / 2152 Balance 350 / 350 2152 / 2152 Microbiology Past 72 Hours 05/31/18 16:50 Gram Stain - Final Fluid - Paracentesis (Abd) Body Fluid Culture - Preliminary No growth-Final to follow 05/31/18 15:20 Stool Occult Blood (VERONIKA) - Final Stool Occult Blood Positive Laboratory Tests Past 24 Hrs 05/31/18 05/31/18 05/31/18 15:20 15:20 15:20 WBC 17.2 H RBC 3.29 L Hgb 9.8 L Hct 29.5 L MCV 89.7 MCH 29.8 MCHC 33.2 RDW 18.6 H RDW Differential 60.9 H Plt Count 256 MPV 10.1 Immature Gran % (Auto) 0.300 Neut % (Auto) 81.2 H Lymph % (Auto) 10.8 L [place] % (Auto) 7.3 Eos % (Auto) 0.3 Baso % (Auto) 0.1 Absolute Neuts (auto) 14.0 H Absolute Lymphs (auto) 1.85 Total Counted Not Reportable PT 20.8 H INR 1.8 APTT 35.0 Sodium 132 L Potassium 4.0 Chloride 102 Carbon Dioxide 18.0 L Anion Gap 12 BUN 50 H Creatinine 3.41 H Estim Creat Clear Calc 13.03 Est GFR (MDRD) Af Amer 18 L Est GFR (MDRD) Non-Af 15 L BUN/Creatinine Ratio 14.7 Glucose 117 H Calcium 8.0 L Total Bilirubin 3.10 H AST 120 H ALT 50 Alkaline Phosphatase 184 H Ammonia Troponin I 0.048 H Total Protein 7.0 Albumin 2.9 L Globulin 4.1 Albumin/Globulin Ratio 0.7 L Lipase 257 Fluid Source Fluid Color Fluid Appearance Fluid Specific Grav Fluid pH Fluid WBC Fluid RBC Fluid Tot Cell Count Fld Polynuclear WBCs # Fld Polynuclear WBCs % Fluid Mononuclear WBCs Fld Mononuclear WBCs % Fluid Neutrophils Fluid Lymphocytes Fluid Monocytes Fl Pathologist Comment Fluid Glucose Fluid Total Protein Fluid LDH Fluid Amylase Fluid Comment 2 Miscellaneous Cytology Miscellaneous Test Blood Type 05/31/18 05/31/18 05/31/18 16:50 16:50 16:50 WBC RBC Hgb Hct MCV MCH MCHC RDW RDW Differential Plt Count MPV Immature Gran % (Auto) Neut % (Auto) Lymph % (Auto) [place] % (Auto) Eos % (Auto) Baso % (Auto) Absolute Neuts (auto) Absolute Lymphs (auto) Total Counted PT INR APTT Sodium Potassium Chloride Carbon Dioxide Anion Gap BUN Creatinine Estim Creat Clear Calc Est GFR (MDRD) Af Amer Est GFR (MDRD) Non-Af BUN/Creatinine Ratio Glucose Calcium Total Bilirubin AST ALT Alkaline Phosphatase Ammonia Troponin I Total Protein Albumin Cancelled Globulin Albumin/Globulin Ratio Lipase Fluid Source Fluid Color Fluid Appearance Fluid Specific Grav Fluid pH Cancelled Fluid WBC Fluid RBC Fluid Tot Cell Count Fld Polynuclear WBCs # Fld Polynuclear WBCs % Fluid Mononuclear WBCs Fld Mononuclear WBCs % Fluid Neutrophils Fluid Lymphocytes Fluid Monocytes Fl Pathologist Comment Fluid Glucose 109 H Fluid Total Protein 1.7 Fluid LDH 69 Fluid Amylase Pending Fluid Comment 2 Miscellaneous Cytology Miscellaneous Test Blood Type 05/31/18 05/31/18 05/31/18 16:50 16:50 16:50 WBC RBC Hgb Hct MCV MCH MCHC RDW RDW Differential Plt Count MPV Immature Gran % (Auto) Neut % (Auto) Lymph % (Auto) [place] % (Auto) Eos % (Auto) Baso % (Auto) Absolute Neuts (auto) Absolute Lymphs (auto) Total Counted PT INR APTT Sodium Potassium Chloride Carbon Dioxide Anion Gap BUN Creatinine Estim Creat Clear Calc Est GFR (MDRD) Af Amer Est GFR (MDRD) Non-Af BUN/Creatinine Ratio Glucose Calcium Total Bilirubin AST ALT Alkaline Phosphatase Ammonia Troponin I Total Protein Albumin Globulin Albumin/Globulin Ratio Lipase Fluid Source ASCITES FLUID Fluid Color YELLOW Fluid Appearance CLEAR Fluid Specific Grav 1.015 Fluid pH Fluid WBC 0.195 Fluid RBC 61 Fluid Tot Cell Count 0.237 H Fld Polynuclear WBCs # 0.047 Fld Polynuclear WBCs % 24.1 Fluid Mononuclear WBCs 0.148 Fld Mononuclear WBCs % 75.9 Fluid Neutrophils 10 Fluid Lymphocytes 20 Fluid Monocytes 70 Fl Pathologist Comment Reviewed Fluid Glucose Fluid Total Protein Fluid LDH Fluid Amylase Fluid Comment 2 SEE COMMENT Miscellaneous Cytology Pending Miscellaneous Test Pending Blood Type 05/31/18 05/31/18 05/31/18 18:44 18:44 21:05 WBC RBC Hgb Hct MCV MCH MCHC RDW RDW Differential Plt Count MPV Immature Gran % (Auto) Neut % (Auto) Lymph % (Auto) [place] % (Auto) Eos % (Auto) Baso % (Auto) Absolute Neuts (auto) Absolute Lymphs (auto) Total Counted PT INR APTT Sodium Potassium Chloride Carbon Dioxide Anion Gap BUN Creatinine Estim Creat Clear Calc Est GFR (MDRD) Af Amer Est GFR (MDRD) Non-Af BUN/Creatinine Ratio Glucose Calcium Total Bilirubin AST ALT Alkaline Phosphatase Ammonia 36.0 H Troponin I 0.039 0.042 Total Protein Albumin Globulin Albumin/Globulin Ratio Lipase Fluid Source Fluid Color Fluid Appearance Fluid Specific Grav Fluid pH Fluid WBC Fluid RBC Fluid Tot Cell Count Fld Polynuclear WBCs # Fld Polynuclear WBCs % Fluid Mononuclear WBCs Fld Mononuclear WBCs % Fluid Neutrophils Fluid Lymphocytes Fluid Monocytes Fl Pathologist Comment Fluid Glucose Fluid Total Protein Fluid LDH Fluid Amylase Fluid Comment 2 Miscellaneous Cytology Miscellaneous Test Blood Type 06/01/18 06/01/18 06/01/18 06:15 06:15 06:15 WBC 9.9 RBC 2.64 L Hgb 7.9 L Hct 23.7 L MCV 89.8 MCH 29.9 MCHC 33.3 RDW 18.7 H RDW Differential 58.3 H Plt Count 195 MPV 9.7 Immature Gran % (Auto) 0.200 Neut % (Auto) 74.6 H Lymph % (Auto) 15.8 L [place] % (Auto) 8.3 Eos % (Auto) 0.9 Baso % (Auto) 0.2 Absolute Neuts (auto) 7.3 Absolute Lymphs (auto) 1.56 Total Counted Not Reportable PT 21.5 H INR 1.9 APTT Sodium 134 L Potassium 3.4 L Chloride 107 Carbon Dioxide 15.0 L Anion Gap 12 BUN 47 H Creatinine 3.03 H Estim Creat Clear Calc 14.71 Est GFR (MDRD) Af Amer 20 L Est GFR (MDRD) Non-Af 17 L BUN/Creatinine Ratio 15.5 Glucose 93 Calcium 7.5 L Total Bilirubin 2.10 H AST 97 H ALT 41 Alkaline Phosphatase 151 H Ammonia Troponin I Total Protein 6.2 L Albumin 2.9 L Globulin 3.3 Albumin/Globulin Ratio 0.9 Lipase Fluid Source Fluid Color Fluid Appearance Fluid Specific Grav Fluid pH Fluid WBC Fluid RBC Fluid Tot Cell Count Fld Polynuclear WBCs # Fld Polynuclear WBCs % Fluid Mononuclear WBCs Fld Mononuclear WBCs % Fluid Neutrophils Fluid Lymphocytes Fluid Monocytes Fl Pathologist Comment Fluid Glucose Fluid Total Protein Fluid LDH Fluid Amylase Fluid Comment 2 Miscellaneous Cytology Miscellaneous Test Blood Type 06/01/18 08:50 WBC RBC Hgb Hct MCV MCH MCHC RDW RDW Differential Plt Count MPV Immature Gran % (Auto) Neut % (Auto) Lymph % (Auto) [place] % (Auto) Eos % (Auto) Baso % (Auto) Absolute Neuts (auto) Absolute Lymphs (auto) Total Counted PT INR APTT Sodium Potassium Chloride Carbon Dioxide Anion Gap BUN Creatinine Estim Creat Clear Calc Est GFR (MDRD) Af Amer Est GFR (MDRD) Non-Af BUN/Creatinine Ratio Glucose Calcium Total Bilirubin AST ALT Alkaline Phosphatase Ammonia Troponin I Total Protein Albumin Globulin Albumin/Globulin Ratio Lipase Fluid Source Fluid Color Fluid Appearance Fluid Specific Grav Fluid pH Fluid WBC Fluid RBC Fluid Tot Cell Count Fld Polynuclear WBCs # Fld Polynuclear WBCs % Fluid Mononuclear WBCs Fld Mononuclear WBCs % Fluid Neutrophils Fluid Lymphocytes Fluid Monocytes Fl Pathologist Comment Fluid Glucose Fluid Total Protein Fluid LDH Fluid Amylase Fluid Comment 2 Miscellaneous Cytology Miscellaneous Test Blood Type A POSITIVE Medical Necessity - Tobacco Use Smoking Status: Current every day smoker Tobacco Use: Cigarettes Assessment/Plan All Active Problems (Last Reviewed 05/04/18 @ 13:46 by Tasia Jenkins, LAURA-C) Anemia (Acute) Renal failure (Acute) 1. Acute SBP following paracentesis - Pt will go for another para today. She will receive [address] Eli. She had a para in the ER and cultures are pending. She remains on rocephin and flagyl. WBC count has improved dramatically. CT shows colitis, cirrhosis, ascites, fibroids, distended gallbladder without stones, compression fractures. Lipase was negative. 2. ADA - improving. Maintain fluids and replace electrolytes. 3. Anemia - + occult blood. No rufus. Possibly 2/2 colitis. Will trend, avoid thinners. 4. Alcoholic cirrhosis - ammonia is somewhat elevated, and stools are loose. INR 1.9. 5. Lung mass - outpatient repeat CT 6. COPD - no exacerbation - prn aerosols. 7. Hypothyroid - PO synthroid 8. GERD - PPI DVT ppx: SCDs DC planning: PTOT This patient was seen by Sebastien Frances PA-C under the supervision of Dr. Brown. <Isai Brown - Last Filed: 06/01/18 17:54> Subjective: Patient has ascites. Denies recent upper GI bleed. Denies history of variceal bleed. Has right upper quadrant and mid abdomen pain. Scheduled for therapeutic paracentesis. - Physical Exam General: Alert, Oriented x3, Cooperative HEENT: Atraumatic, PERRLA, EOMI, Normocephalic Neck: Supple, No JVD, Negative Carotid Bruits Lungs: Clear to auscultation, Normal air movement, No rhonchi, No wheeze, No rales Cardiovascular: Regular rate, No murmurs Abdomen: Bowel Sounds Present, Soft, Distended - Ascites present, Splenomegaly, Tender Extremities: Capillary Refill Less than 3 Seconds, Edema Skin: No rashes, No breakdown Musculoskeletal: No Tenderness to Palpation of Joints or Extremities Neurological: Cranial nerves II-XII grossly intact Psych/Mental Status: Normal Affect, Appropriate Vital Signs Temp Pulse Resp BP Pulse Ox 98.6 F 90 18 102/65 96 06/01/18 16:45 06/01/18 16:45 06/01/18 16:45 06/01/18 16:45 06/01/18 16:45 Oxygen Delivery Method [3] Room Air Oxygen Delivery Method [2] Room Air Oxygen Delivery Method [1 ( Room Air Initial Baseline)] Oxygen Delivery Method Room Air Weight: 107 lb 5.842 oz Body Mass Index (BMI) 20.9 Intake and Output for Last 24 Hours 05/30/18 05/31/18 06/01/18 23:59 23:59 23:59 Intake Total 350 / 350 2552 / 2552 Balance 350 / 350 2552 / 2552 Microbiology Past 72 Hours 05/31/18 16:50 Gram Stain - Final Fluid - Paracentesis (Abd) Body Fluid Culture - Preliminary No growth-Final to follow 05/31/18 15:20 Stool Occult Blood (VERONIKA) - Final Stool Occult Blood Positive Laboratory Tests Past 24 Hrs 05/31/18 05/31/18 05/31/18 16:50 16:50 16:50 WBC RBC Hgb Hct MCV MCH MCHC RDW RDW Differential Plt Count MPV Immature Gran % (Auto) Neut % (Auto) Lymph % (Auto) [place] % (Auto) Eos % (Auto) Baso % (Auto) Absolute Neuts (auto) Absolute Lymphs (auto) Total Counted PT INR Sodium Potassium Chloride Carbon Dioxide Anion Gap BUN Creatinine Estim Creat Clear Calc Est GFR (MDRD) Af Amer Est GFR (MDRD) Non-Af BUN/Creatinine Ratio Glucose Calcium Total Bilirubin AST ALT Alkaline Phosphatase Ammonia Troponin I Total Protein Albumin Globulin Albumin/Globulin Ratio Fluid Source ASCITES FLUID Fluid Color YELLOW Fluid Appearance CLEAR Fluid Specific Grav 1.015 Fluid pH Cancelled Fluid WBC Fluid RBC Fluid Tot Cell Count Fld Polynuclear WBCs # Fld Polynuclear WBCs % Fluid Mononuclear WBCs Fld Mononuclear WBCs % Fluid Neutrophils 10 Fluid Lymphocytes 20 Fluid Monocytes 70 Fluid Macrophages Fld Mesothelial Cells Fl Pathologist Comment Reviewed Fluid Glucose 109 H Fluid Total Protein 1.7 Fluid LDH 69 Fluid Comment 2 SEE COMMENT Miscellaneous Cytology Blood Type 05/31/18 05/31/18 05/31/18 18:44 18:44 21:05 WBC RBC Hgb Hct MCV MCH MCHC RDW RDW Differential Plt Count MPV Immature Gran % (Auto) Neut % (Auto) Lymph % (Auto) [place] % (Auto) Eos % (Auto) Baso % (Auto) Absolute Neuts (auto) Absolute Lymphs (auto) Total Counted PT INR Sodium Potassium Chloride Carbon Dioxide Anion Gap BUN Creatinine Estim Creat Clear Calc Est GFR (MDRD) Af Amer Est GFR (MDRD) Non-Af BUN/Creatinine Ratio Glucose Calcium Total Bilirubin AST ALT Alkaline Phosphatase Ammonia 36.0 H Troponin I 0.039 0.042 Total Protein Albumin Globulin Albumin/Globulin Ratio Fluid Source Fluid Color Fluid Appearance Fluid Specific Grav Fluid pH Fluid WBC Fluid RBC Fluid Tot Cell Count Fld Polynuclear WBCs # Fld Polynuclear WBCs % Fluid Mononuclear WBCs Fld Mononuclear WBCs % Fluid Neutrophils Fluid Lymphocytes Fluid Monocytes Fluid Macrophages Fld Mesothelial Cells Fl Pathologist Comment Fluid Glucose Fluid Total Protein Fluid LDH Fluid Comment 2 Miscellaneous Cytology Blood Type 06/01/18 06/01/18 06/01/18 06:15 06:15 06:15 WBC 9.9 RBC 2.64 L Hgb 7.9 L Hct 23.7 L MCV 89.8 MCH 29.9 MCHC 33.3 RDW 18.7 H RDW Differential 58.3 H Plt Count 195 MPV 9.7 Immature Gran % (Auto) 0.200 Neut % (Auto) 74.6 H Lymph % (Auto) 15.8 L [place] % (Auto) 8.3 Eos % (Auto) 0.9 Baso % (Auto) 0.2 Absolute Neuts (auto) 7.3 Absolute Lymphs (auto) 1.56 Total Counted Not Reportable PT 21.5 H INR 1.9 Sodium 134 L Potassium 3.4 L Chloride 107 Carbon Dioxide 15.0 L Anion Gap 12 BUN 47 H Creatinine 3.03 H Estim Creat Clear Calc 14.71 Est GFR (MDRD) Af Amer 20 L Est GFR (MDRD) Non-Af 17 L BUN/Creatinine Ratio 15.5 Glucose 93 Calcium 7.5 L Total Bilirubin 2.10 H AST 97 H ALT 41 Alkaline Phosphatase 151 H Ammonia Troponin I Total Protein 6.2 L Albumin 2.9 L Globulin 3.3 Albumin/Globulin Ratio 0.9 Fluid Source Fluid Color Fluid Appearance Fluid Specific Grav Fluid pH Fluid WBC Fluid RBC Fluid Tot Cell Count Fld Polynuclear WBCs # Fld Polynuclear WBCs % Fluid Mononuclear WBCs Fld Mononuclear WBCs % Fluid Neutrophils Fluid Lymphocytes Fluid Monocytes Fluid Macrophages Fld Mesothelial Cells Fl Pathologist Comment Fluid Glucose Fluid Total Protein Fluid LDH Fluid Comment 2 Miscellaneous Cytology Blood Type 06/01/18 06/01/18 06/01/18 08:50 14:45 14:45 WBC RBC Hgb Hct MCV MCH MCHC RDW RDW Differential Plt Count MPV Immature Gran % (Auto) Neut % (Auto) Lymph % (Auto) [place] % (Auto) Eos % (Auto) Baso % (Auto) Absolute Neuts (auto) Absolute Lymphs (auto) Total Counted PT INR Sodium Potassium Chloride Carbon Dioxide Anion Gap BUN Creatinine Estim Creat Clear Calc Est GFR (MDRD) Af Amer Est GFR (MDRD) Non-Af BUN/Creatinine Ratio Glucose Calcium Total Bilirubin AST ALT Alkaline Phosphatase Ammonia Troponin I Total Protein Albumin Globulin Albumin/Globulin Ratio Fluid Source PERITONEAL FLUID Fluid Color YELLOW Fluid Appearance CLEAR Fluid Specific Grav Fluid pH Fluid WBC 0.169 Fluid RBC 568 Fluid Tot Cell Count 0.190 H Fld Polynuclear WBCs # 0.024 Fld Polynuclear WBCs % 14.2 Fluid Mononuclear WBCs 0.145 Fld Mononuclear WBCs % 85.8 Fluid Neutrophils 15 Fluid Lymphocytes 64 Fluid Monocytes 11 Fluid Macrophages 7 Fld Mesothelial Cells 3 Fl Pathologist Comment May follow Fluid Glucose Fluid Total Protein Fluid LDH Fluid Comment 2 SEE COMMENT Miscellaneous Cytology Pending Blood Type A POSITIVE Assessment/Plan This patient was seen in conjunction with Sebastien MOYA. I have independently interviewed and examined the patient and reviewed pertinent history, examination findings, laboratory and plan of management. I have reviewed the note and agree with the documented findings with the few additional points. In brief, patient history of alcoholic cirrhosis decompensated with ascites and splenomegaly had therapeutic paracentesis today. 210 mL brad colored fluid was drained under ultrasound guidance. Fluid analysis shows total WBC 195 with 47 polynuclear cells that is negative for SBP. Cultures are pending. Fluid total protein is 1.7. Continue ceftriaxone. I have discussed my assessment with Sebastien MOYA and orders have been reviewed. Code Visit Inpatient E&M: 21315 Subs Hosp L3
[2018-06-01 15:28] LABS: Cytology, Body Fluid / CSF SEE PATHOLOGY REPORT
[2018-06-01 15:50] LABS: Body Fluid Mononuclear WBC # 0.145 10^3/uL; Body Fluid Mononuclear WBC % 85.8 %; Body Fluid Polynuclear WBC # 0.024 10^3/uL; Body Fluid Polynuclear WBC % 14.2 %; White Blood Count/Body Fluid 0.169 10^3/uL
[2018-06-01 15:59] LABS: Auto B Fluid Analyzer BKGD Ct COUNTS W/IN LIMITS (W/IN LIMITS)
[2018-06-01 16:00] LABS: Source- Body Fluid PERITONEAL FLUID
[2018-06-01 16:12] LABS: Appearance/Body Fluid CLEAR; Color/Body Fluid YELLOW; Red Cell Count/Body Fluid 568 /mm3
[2018-06-01 17:31] LABS: Lymphocytes 64 %; Macrophages 7 %; Mesothelial Cells 3 %; Monocytes 11 %; Neutrophil (Segs) 15 %
[2018-06-01 17:34] LABS: Body Fluid QC Type(s) BF2Q
--- NOTE | 2018-06-01 18:21 | US_ITS ---
PROCEDURE: Ultrasound guided paracentesis. DATE OF EXAMINATION: June 01, 2018. INDICATION: Female, 58 years old. Ascites. PHYSICIAN: Hernandez Eli M.D. TECHNIQUE: The risks, benefits, and alternatives to the procedure were explained to the patient. The specific risks of bleeding, infection, and damage to bowel were detailed and accepted. Witnessed informed consent was obtained. The abdomen was ultrasonographically surveyed. An appropriate pocket of fluid was identified at the right lower quadrant. The skin were cleaned and prepped in the usual sterile fashion. Using ultrasound guidance, the peritoneal cavity was accessed with a 5-Filipino paracentesis needle/catheter system. The trocar was removed. A total of 2810 ml of brad-colored fluid were removed from the peritoneal cavity. A 110 mL sample was sent to the laboratory. The catheter was removed and a sterile dressing was applied. The procedure was well tolerated. US/Paracentesis with US IMPRESSION: Ultrasound guided paracentesis. Electronically Signed: Hernandez Eli MD at 15:36 EST Tel [phone], Service support ,
[2018-06-02] VITALS (18 sets, daily range): BP systolic 105–132; BP diastolic 60–74; PULSE 80–103; RESP 16–20; TEMP 36.2–36.8; O2SAT 95–98
[2018-06-02] MEDS: Morphine 2 MG/ML Syringe 1 MG IV ×8 (01:22→23:23)
[2018-06-02] MEDS: Levothyroxine 25 MCG TABLET PO (05:19)
[2018-06-02] MEDS: Ipratropium/Albuterol Sulfate 3 ML AMPUL.NEB INHALATION ×3 (07:06→19:59)
[2018-06-02] MEDS: 0.9% Normal Saline 1,000 ML 100 ML IV ×2 (08:44→20:44)
[2018-06-02] MEDS: Ondansetron 4 MG/2 ML Vial IV ×2 (09:52→17:12)
[2018-06-02] MEDS: 0.9% NaCl Peripheral Flush Adult/Peds IV ×5 (09:52→18:08)
--- NOTE | 2018-06-02 13:26 | PCM.PROGNOTE ---
<Autumn Segovia - Last Filed: 06/02/18 13:45> Patient Problems: Active and Suspected Problems (Last Reviewed 05/04/18 @ 13:46 by Tasia Jenkins NP-C) Anemia (Acute) Renal failure (Acute) Spontaneous bacterial peritonitis (Suspected) Subjective: Patient seen and examined. Complains of abdominal pain, tearful. Reports poor appetite and nausea. Denies fever, chills. - Physical Exam General: Alert, Oriented x3, Cooperative HEENT: Atraumatic, PERRLA, EOMI, Normocephalic Neck: Supple, No JVD, Negative Carotid Bruits Lungs: Clear to auscultation, Normal air movement Cardiovascular: Regular rate, No murmurs Abdomen: Bowel Sounds Present, Distended, Tender Extremities: No clubbing, No cyanosis, No edema, Capillary Refill Less than 3 Seconds Skin: No rashes, No breakdown Musculoskeletal: No Tenderness to Palpation of Joints or Extremities Neurological: Cranial nerves II-XII grossly intact, Neuro grossly intact Psych/Mental Status: Normal Affect, Appropriate Vital Signs Temp Pulse Resp BP Pulse Ox 97.2 F L 90 18 109/60 95 06/02/18 09:43 06/02/18 10:56 06/02/18 09:43 06/02/18 09:43 06/02/18 09:43 Oxygen Delivery Method [3] Room Air Oxygen Delivery Method [2] Room Air Oxygen Delivery Method [1 ( Room Air Initial Baseline)] Oxygen Delivery Method Room Air Weight: 107 lb 5.842 oz Body Mass Index (BMI) 20.9 Intake and Output for Last 24 Hours 05/31/18 06/01/18 06/02/18 23:59 23:59 23:59 Intake Total 350 / 350 4198 / 4198 2308 / 2308 Output Total 2810 / 2810 Balance 350 / 350 1388 / 1388 2308 / 2308 Microbiology Past 72 Hours 06/01/18 14:45 Gram Stain - Final Fluid - Paracentesis (Abd) 05/31/18 16:50 Gram Stain - Final Fluid - Paracentesis (Abd) Body Fluid Culture - Preliminary No growth-Final to follow 05/31/18 15:20 Stool Occult Blood (VERONIKA) - Final Stool Occult Blood Positive Laboratory Tests Past 24 Hrs 06/01/18 06/01/18 14:45 14:45 Fluid Source PERITONEAL FLUID Fluid Color YELLOW Fluid Appearance CLEAR Fluid WBC 0.169 Fluid RBC 568 Fluid Tot Cell Count 0.190 H Fld Polynuclear WBCs # 0.024 Fld Polynuclear WBCs % 14.2 Fluid Mononuclear WBCs 0.145 Fld Mononuclear WBCs % 85.8 Fluid Neutrophils 15 Fluid Lymphocytes 64 Fluid Monocytes 11 Fluid Macrophages 7 Fld Mesothelial Cells 3 Fl Pathologist Comment May follow Fluid Comment 2 SEE COMMENT Miscellaneous Cytology Pending Medical Necessity - Tobacco Use Smoking Status: Current every day smoker Tobacco Use: Cigarettes Assessment/Plan All Active Problems (Last Reviewed 05/04/18 @ 13:46 by Tasia Jenkins NP-C) Anemia (Acute) Renal failure (Acute) 1. Possible SBP, status post [id number]-teiniipnkn-[id number] paracentesis 06/01/2018 with removal of 2810 mL. Patient receives weekly paracentesis at [facility]. CT of abdomen on admission showed a cirrhosis, ascites, distended gallbladder without stones, bowel wall thickening consistent with possible colitis. Demineralization and numerous compression fractures. Paracentesis fluid cultures pending. Leukocytosis improved. Continue IV Rocephin and IV Flagyl empirically. Echocardiogram shows an EF of 65%, stage II diastolic dysfunction, RVSP estimated to be 41 mmHg. 2. Acute kidney injury-suspect secondary to dehydration from poor oral intake. Improving. Trend BMP. Unknown baseline creatinine. 3. Acute on chronic normochromic normocytic anemia with Hemoccult positive stools-status post 2 units PRBC. Trend CBC. No baseline labs for comparison. IV PPI. 4. Alcoholic cirrhosis-stable. 5. Chronic COPD-no acute exacerbation. 6. Hypothyroidism-continue Synthroid regimen. 7. GERD-continue PPI. 8. Chronic lung mass-continue outpatient follow-up with CT. DVT prophylaxis-SCDs This patient was seen by YEMI Bueno under the supervision of Dr. Brown. <Isai Brown - Last Filed: 06/02/18 17:27> Subjective: Seen and examined. Patient complaining of Abdominal pain. Complain of abdominal pain which is mainly from bilateral costal margin/ribs and radiates downwards to abdomen. No fever or chills. - Physical Exam General: Alert, Oriented x3, Cooperative HEENT: Atraumatic, PERRLA, EOMI, Normocephalic Neck: Supple, No JVD, Negative Carotid Bruits Lungs: Clear to auscultation, Diminished - Air entry diminished in bilateral lung bases Cardiovascular: Regular rate, Regular Rhythm, Normal S1, Normal S2, No murmurs Abdomen: Bowel Sounds Present, Soft, Non Tender, Distended, Tender Extremities: No edema, Capillary Refill Less than 3 Seconds Skin: No rashes, No breakdown Musculoskeletal: No Tenderness to Palpation of Joints or Extremities, Cachexia, Muscle Wasting Neurological: Cranial nerves II-XII grossly intact, Deep Tendon Reflexes 2+/4 and Symmetrical, Neuro grossly intact Psych/Mental Status: Normal Affect, Appropriate Vital Signs Temp Pulse Resp BP Pulse Ox 97.8 F 98 18 111/68 96 06/02/18 17:19 06/02/18 17:19 06/02/18 17:19 06/02/18 17:19 06/02/18 17:19 Oxygen Delivery Method [3] Room Air Oxygen Delivery Method [2] Room Air Oxygen Delivery Method [1 ( Room Air Initial Baseline)] Oxygen Delivery Method Room Air Weight: 107 lb 5.842 oz Body Mass Index (BMI) 20.9 Intake and Output for Last 24 Hours 05/31/18 06/01/18 06/02/18 23:59 23:59 23:59 Intake Total 350 / 350 4198 / 4198 2308 / 2308 Output Total 2810 / 2810 Balance 350 / 350 1388 / 1388 2308 / 2308 Microbiology Past 72 Hours 06/01/18 14:45 Gram Stain - Final Fluid - Paracentesis (Abd) Body Fluid Culture - Preliminary No growth-Final to follow 05/31/18 16:50 Gram Stain - Final Fluid - Paracentesis (Abd) Body Fluid Culture - Preliminary No growth-Final to follow 05/31/18 15:20 Stool Occult Blood (VERONIKA) - Final Stool Occult Blood Positive Laboratory Tests Past 24 Hrs 06/01/18 06/01/18 08:50 14:45 Fluid Source PERITONEAL FLUID Fluid Color YELLOW Fluid Appearance CLEAR Fluid RBC 568 Fluid Neutrophils 15 Fluid Lymphocytes 64 Fluid Monocytes 11 Fluid Macrophages 7 Fld Mesothelial Cells 3 Fl Pathologist Comment May follow Fluid Comment 2 SEE COMMENT Blood Type A POSITIVE Antibody Screen NEGATIVE Crossmatch See Detail Assessment/Plan This patient was seen in conjunction with Sebastien MOYA. I have independently interviewed and examined the patient and reviewed pertinent history, examination findings, laboratory and plan of management. I have reviewed the note and agree with the documented findings with the few additional points. In brief, patient history of alcoholic cirrhosis decompensated with ascites and splenomegaly had therapeutic paracentesis on 06/01/2018. 210 mL brad colored fluid was drained under ultrasound guidance. Fluid analysis shows total WBC 195 with 47 polynuclear cells that is negative for SBP. Gram stain of fluid culture still not show growth. Fluid total protein is 1.7. when Ascites fluid total protein is less than 1.1, suspicion for SBP is high. Continue ceftriaxone on the basis of clinical suspicion Low-dose Motrin for musculoskeletal rib pain I have discussed my assessment with Sebastien MOYA and orders have been reviewed. Code Visit Inpatient E&M: 98046 Subs Hosp L3
[2018-06-02] MEDS: Ibuprofen 400 MG Tablet PO (14:20)
[2018-06-03] VITALS (7 sets, daily range): BP systolic 99–109; BP diastolic 62–71; PULSE 87–95; RESP 16–18; TEMP 36.6–36.8; O2SAT 95–98
[2018-06-03] MEDS: Levothyroxine 25 MCG TABLET PO (05:48)
[2018-06-03] MEDS: 0.9% Normal Saline 1,000 ML 100 ML IV (06:18)
[2018-06-03 07:14] LABS: Hematocrit 26.6 % (37-47); Hemoglobin 8.7 g/dl (12.0-15.0); Mean Corp Hgb Conc 32.7 g/gl (32-36); Mean Corpuscular Hgb 29.2 pg (27.0-32.0); Mean Corpuscular Volume 89.3 fL (81-99); Mean Platelet Vol. 10.2 fl (6.2-12.0); Platelet Count 192 K/mm3 (150-450); RBC Distribution Width CV 19.7 % (11.6-14.6); RBC Distribution Width SD 60.8 fl (35.1-43.9); Red Blood Count 2.98 M/mm3 (4.2-5.4); White Blood Count 8.2 K/mm3 (4.4-11.0)
[2018-06-03 07:19] LABS: Scan Indicated on CBC? Y/N NO
[2018-06-03 07:37] LABS: Anion Gap 12 (5-15); BUN 30 mg/dL (7-18); BUN/Creat Ratio 13.5 RATIO (10-20); Calcium,Total 7.8 mg/dL (8.5-10.1); Chloride 112 mmol/L (98-107); Creatinine, Serum 2.22 mg/dL (0.55-1.02); EST Glomerular Filtration Rate 24 mL/min (>60); Est Glom Filt Rate - Afr Amer 29 mL/min (>60); Estimated Creatinine Clearance 20.08 ml/min; Glucose 96 mg/dL (74-106); Potassium 3.9 mmol/L (3.5-5.1); Sodium Level 138 mmol/L (136-145)
[2018-06-03] MEDS: Ipratropium/Albuterol Sulfate 3 ML AMPUL.NEB INHALATION (07:59)
[2018-06-03 10:27] LABS: Pathologist Comment/Body Fluid Reviewed
--- NOTE | 2018-06-03 10:47 | PCM.DC ---
- Discharge Diagnoses Current Active Problems: Current Active and Chronic Problems (Last Reviewed 05/04/18 @ 13:46 by YEMI Caldwell) Anemia (Acute) Renal failure (Acute) Alcoholic cirrhosis of liver (Chronic) You will use the following diet at home:: Cardiac Your food should be the consistency of: Regular Discharge Activity: May Not Drive Call your doctor if you observe: Fever of 101 or Higher, Inability to urinate, Shortness of breath, Dizziness, Swelling in the ankles, Increased palpitations (irregular heartbeat), Uncontrolled pain Additional Instructions: Needs outpatient evaluation for liver and kidney transplant for patient of alcoholic cirrhosis and CKD stage IV Allergies/Adverse Reactions: Allergies No Known Allergies Allergy (Verified 05/31/18 14:33) Medications to take at Discharge cholecalciferol (vitamin D3) 50,000 unit capsule 50,000 unit PO QWEEK 02/28/18 hydroxyzine HCl 10 mg tablet 10 mg PO Q8 PRN 02/28/18 pantoprazole 40 mg tablet,delayed release 40 mg PO DAILY 02/28/18 Levothyroxine [Synthroid] 25 mcg PO DAILY 05/31/18 Tiotropium Br/Olodaterol HCl [Stiolto Respimat Inhal [place]] 2 puff INHALATION BID 05/31/18 Ciprofloxacin [Cipro] 250 mg PO BID #4 tablet 06/03/18 The following prescriptions were given: Ciprofloxacin [Cipro] 250 mg PO BID #4 tablet Primary Care Physician: Katharine Worrell [Primary Care Provider] - Please follow up with your Primary Care Physician in: in 1-2 weeks Test Results: Test results from this visit will be discussed in further detail at your follow-up appointment, if applicable. Please Follow Up With: Ghanshyam Richard MD When: in 2 weeks for CKD Stage IV
--- NOTE | 2018-06-03 11:06 | CASEMGMT ---
This RN CM to room to speak with pt regarding discharge plan. Pt declines HHC or OP therapy at this time. Pt voices no further questions/concerns/needs at this time. This RN CM did offer info/explanation on palliative care for pt at this time and pt is willing to have palliative pamphlet at this time. Dominic SW aware and into room at this time. SStaten RN CM
[2018-06-03 11:21] LABS: Amylase Body Fluid 22 U/L (.)
--- NOTE | 2018-06-03 11:38 | PCM.DC.SUM ---
Discharge Date and Diagnosis Date of Admission: 05/31/18 Date of Discharge: 06/03/18 - Primary Discharge Diagnosis Active and Suspected Problems (Last Reviewed 05/04/18 @ 13:46 by YEMI Caldwell) Anemia (Acute) Renal failure (Acute) Spontaneous bacterial peritonitis (Suspected) - Secondary Discharge Diagnosis Chronic Problems (Last Reviewed 05/04/18 @ 13:46 by YEMI Caldwell) Alcoholic cirrhosis of liver (Chronic) Tobacco abuse (Chronic) Stage 1 mild COPD by GOLD classification (Chronic) Lung mass (Chronic) Hospital Course and Treatment Summary of Care Provided: The patient is a 58 year old F with history of alcoholic cirrhosis decompensated with ascites and splenomegaly had therapeutic paracentesis on 06/01/2018. 210 mL brad colored fluid was drained under ultrasound guidance. Fluid analysis shows total WBC 195 with 47 polynuclear cells that is negative for SBP. Gram stain of fluid culture still not show growth. Fluid total protein is 1.7. when Ascites fluid total protein is less than 1.1, suspicion for SBP is high. Continue ceftriaxone on the basis of clinical suspicion Low-dose Motrin for musculoskeletal rib pain and pain got better. And the pain got better. 1. Possible SBP, status post amogvyrucvce-kjtsuxxldz-icduvs paracentesis 06/01/2018 with removal of 2810 mL. Patient receives weekly paracentesis at [facility]. CT of abdomen on admission showed a cirrhosis, ascites, distended gallbladder without stones, bowel wall thickening consistent with possible colitis. Demineralization and numerous compression fractures. Paracentesis fluid cultures pending. Leukocytosis improved. Had ceftriaxone and discharged on Cipro 250 mg twice daily for 2 more days to complete a total of 7 days course. Echocardiogram shows an EF of 65%, stage II diastolic dysfunction, RVSP estimated to be 41 mmHg. All of acetic fluid culture is negative but patient was treated empirically on clinical suspicion. 2. Acute kidney injury or acute kidney injury and CKD from recurrent paracentesis-suspect secondary to dehydration from poor oral intake. Improving. Trend BMP. Unknown baseline creatinine. Patient needs to be read by material handling supervisor. Patient might need need to be evaluated by material handling supervisor and consider Zaroxolyn. With creatinine clearance of 20 mL/min, loop diuretics not effective. 3. Acute on chronic normochromic normocytic anemia with Hemoccult positive stools-status post 2 units PRBC. CBC stable. IV PPI. 4. Alcoholic cirrhosis-stable. 5. Chronic COPD-no acute exacerbation. 6. Hypothyroidism-continue Synthroid regimen. 7. GERD-continue PPI. 8. Chronic lung mass-continue outpatient follow-up with CT. DVT prophylaxis-SCDs Discharge medication reconciliation done. Discharge follow-up instructions completed. Discharge process discussed with the patient and all questions were answered to patient's satisfaction.. Total time spent, exact 35 minutes on discharge meds reconciliation, examination, review of imaging and blood test and discussion with the patient on follow-up instructions. Subjective: Patient abdominal pain is much better. His mild abdominal swelling. Patient has CKD stage IV and diuretics Lasix is not going to work. Objective: General: Alert, Oriented x3, Cooperative HEENT: Atraumatic, PERRLA, EOMI, Normocephalic Neck: Supple, No JVD, Negative Carotid Bruits Lungs: Clear to auscultation, Air entry diminished in bilateral lung bases Cardiovascular: Regular rate, Regular Rhythm, Normal S1, Normal S2, No murmurs Abdomen: Bowel Sounds Present, Soft, Non Tender, Distended, no tenderness. Mild ascites. Extremities: No edema, Capillary Refill Less than 3 Seconds Skin: No rashes, No breakdown Musculoskeletal: No Tenderness to Palpation of Joints or Extremities, Cachexia, Muscle Wasting Neurological: Cranial nerves II-XII grossly intact, Deep Tendon Reflexes 2+/4 and Symmetrical, Neuro grossly intact Psych/Mental Status: Normal Affect, Appropriate - Physical Exam Vital Signs Temp Pulse Resp BP Pulse Ox 97.8 F 88 16 99/64 95 06/03/18 07:50 06/03/18 07:56 06/03/18 07:56 06/03/18 07:50 06/03/18 07:56 Oxygen Delivery Method [3] Room Air Oxygen Delivery Method [2] Room Air Oxygen Delivery Method [1 ( Room Air Initial Baseline)] Oxygen Delivery Method Room Air Weight: 107 lb 5.842 oz Body Mass Index (BMI) 20.9 Intake and Output for Last 24 Hours 06/01/18 06/02/18 06/03/18 23:59 23:59 23:59 Intake Total 4198 / 4198 4224 / 4224 1043 / 1043 Output Total 2810 / 2810 Balance 1388 / 1388 4224 / 4224 1043 / 1043 Microbiology Past 72 Hours 05/31/18 16:50 Gram Stain - Final Fluid - Paracentesis (Abd) Body Fluid Culture - Final Culture exhibits no growth. Anaerobic Culture - Preliminary No growth in 48 hours. 06/01/18 14:45 Gram Stain - Final Fluid - Paracentesis (Abd) Body Fluid Culture - Preliminary No growth-Final to follow 05/31/18 15:20 Stool Occult Blood (VERONIKA) - Final Stool Occult Blood Positive Laboratory Tests Past 24 Hrs 05/31/18 05/31/18 06/01/18 16:50 16:50 08:50 WBC RBC Hgb Hct MCV MCH MCHC RDW RDW Differential Plt Count MPV Sodium Potassium Chloride Carbon Dioxide Anion Gap BUN Creatinine Estim Creat Clear Calc Est GFR (MDRD) Af Amer Est GFR (MDRD) Non-Af BUN/Creatinine Ratio Glucose Calcium Fluid pH Cancelled Fl Pathologist Comment Fluid Amylase 22 Miscellaneous Cytology SEE PATHOLOGY REPORT Blood Type A POSITIVE Antibody Screen NEGATIVE Crossmatch See Detail 06/01/18 06/03/18 06/03/18 14:45 06:49 06:49 WBC 8.2 RBC 2.98 L Hgb 8.7 L Hct 26.6 L MCV 89.3 MCH 29.2 MCHC 32.7 RDW 19.7 H RDW Differential 60.8 H Plt Count 192 MPV 10.2 Sodium 138 Potassium 3.9 Chloride 112 H Carbon Dioxide 14.0 L Anion Gap 12 BUN 30 H Creatinine 2.22 H Estim Creat Clear Calc 20.08 Est GFR (MDRD) Af Amer 29 L Est GFR (MDRD) Non-Af 24 L BUN/Creatinine Ratio 13.5 Glucose 96 Calcium 7.8 L Fluid pH Fl Pathologist Comment Reviewed Fluid Amylase Miscellaneous Cytology Blood Type Antibody Screen Crossmatch Discharge Activity: May Not Drive Call your doctor if you observe: Fever of 101 or Higher, Inability to urinate, Shortness of breath, Dizziness, Swelling in the ankles, Increased palpitations (irregular heartbeat), Uncontrolled pain Home Medications: Medications to take at Discharge cholecalciferol (vitamin D3) 50,000 unit capsule 50,000 unit PO QWEEK 02/28/18 hydroxyzine HCl 10 mg tablet 10 mg PO Q8 PRN 02/28/18 pantoprazole 40 mg tablet,delayed release 40 mg PO DAILY 02/28/18 Levothyroxine [Synthroid] 25 mcg PO DAILY 05/31/18 Tiotropium Br/Olodaterol HCl [Stiolto Respimat Inhal [place]] 2 puff INHALATION BID 05/31/18 Ciprofloxacin [Cipro] 250 mg PO BID #4 tablet 06/03/18 Following Prescrptions Were Given to Patient: Ciprofloxacin [Cipro] 250 mg PO BID #4 tablet Primary Care Physician: Katharine Worrell [Primary Care Provider] - Please follow up with your Primary Care Physician in: in 1-2 weeks Please Follow Up With: Ghanshyam Richard MD When: in 2 weeks for CKD Stage IV Medical Necessity - Tobacco Use Smoking Status: Current every day smoker Tobacco Use: Cigarettes Meaningful Use Info Meaningful Use Diagnoses (Choose all that apply): None applicable Code Visit Inpatient E&M: 30317 Disch Hosp
== END 2018-06-03 13:54 | disposition home or self-care (01) | DRG 432 ==
LOC: ED 16:38 → PCU 18:10
PROVIDERS: Nurse Practitioner Family; Admitting Provider Hospitalist; Emergency Provider Emergency Medicine; Referring Provider Hospitalist; Visit Provider Internal Medicine
DX: K70.31 Alcoholic cirrhosis of liver with ascites (principal); K65.2 Spontaneous bacterial peritonitis; N17.9 Acute kidney failure, unspecified; N18.4 Chronic kidney disease, stage 4 (severe); D64.9 Anemia, unspecified; F17.210 Nicotine dependence, cigarettes, uncomplicated; Z23 Encounter for immunization; J44.9 Chronic obstructive pulmonary disease, unspecified; E03.9 Hypothyroidism, unspecified; R91.8 Other nonspecific abnormal finding of lung field; K21.9 Gastro-esophageal reflux disease without esophagitis
CPT/HCPCS: 36415; 49082; 49083; 74176; 80048; 80053; 81002; 82140; 82150; 82274; 82945; 83615; 83690; 84157; 84484; 85025; 85027; 85610; 85730; 86850; 86900; 86920; 86922; 87070; 87075; 87205; 88108; 88305; 88313; 89050; 93005; 93306; 94640; 97161; 97165; 97802; 99284; 99406; J7030; J7040; P9016; P9017; P9047; 90686; A4216; J0696; J2405

== ENCOUNTER 2018-07-04 13:11 | Inpatient (IN) | payer OTHER, SELFPAY ==
[2018-05-31 18:31] VITALS: BMI 20.9
[2018-07-04] VITALS (14 sets, daily range): BP systolic 96–127; BP diastolic 54–81; PULSE 91–107; RESP 14–20; TEMP 36.7–37.2; O2SAT 93–100; BMI 19.5; BMI 22.1
--- NOTE | 2018-07-04 14:19 | RAD_ITS ---
STUDY: X-RAY CHEST REASON FOR EXAM: Female, 58 years old. Cough. Abdominal pain. TECHNIQUE: Single AP portable view of the chest. COMPARISON: None. FINDINGS: EKG electrodes are seen. Increased linear markings in the left midlung suggestive of linear scarring and/or atelectasis. Mild increased markings in the posterior segment of the right lower lobe suggestive scarring. Normal size heart. Normal mediastinum and benjie. Normal visualized pulmonary arteries. There is atherosclerotic tortuosity of the aortic arch and descending thoracic aorta. Normal visualized thoracic spine. Normal visualized ribs, clavicles, and shoulders. There is no demonstrated abnormality of the visualized soft tissue structures of the upper abdomen. RAD/Chest 1 View (Portable) IMPRESSION: Linear atelectasis and/or scarring at the left lung base. Mild increased markings at the right lung base suggestive of scarring. Electronically Signed: Hernandez Eli MD at 14:43 EST , Service support ,
--- NOTE | 2018-07-04 14:25 | ED.DCSUM_ITS ---
- ER Visit Summary Date of Service: 07/04/18 Chief Complaint: Abdominal pain History of Present Illness: The patient is a 58 F who presents for 2 days of abdominal pain. Patient has a history of cirrhosis and liver failure, and receives weekly therapeutic paracentesis. For the last 2 days patient has been having stabbing abdominal pain and an increased sense of fullness and discomfort in her abdomen. This is similar to 1 month ago when she was evaluated for concern for SBP. Patient having nausea and vomiting. She has diarrhea chronically. She denies fever. She has had decreased oral intake. She does have kidney disease and cirrhosis, and she denies any other medical problems. Physical Examination: Vital signs: afebrile, hemodynamically stable, no hypoxia on room air General: well nourished, well developed, in no distress Skin: warm, dry, no rash, sallow apperaance to skin HEENT: normocephalic and atraumatic; PERRL, EOMI lateral icterus, dry mucous membranes Cardiovascular: Tachycardic rate and rhythm without murmurs, no peripheral edema, 2+ pulses all distal extremities Respiratory: No increased work of breathing, lungs are clear to auscultation bilaterally, no rales, rhonchi or wheezing Abdominal: Abdomen is distended, diffusely tender, hyperactive bowel sounds, no guarding or rebound, no masses MSK: Moves all extremities, no deformities, normal strength Neuro: Awake and alert, oriented ?4. No facial droop, sensation and motor function intact and symmetric Test Results: Abnormal Lab Results 07/04/18 07/04/18 07/04/18 13:35 13:35 13:35 WBC 17.2 H RBC 3.38 L Hgb 10.1 L Hct 30.7 L MCV 90.8 MCH 29.9 MCHC 32.9 RDW 19.2 H RDW Differential 63.8 H Plt Count 244 MPV 10.7 Immature Gran % (Auto) 0.300 Neut % (Auto) 73.1 H Lymph % (Auto) 16.1 L Hancock % (Auto) 10.1 H Eos % (Auto) 0.3 Baso % (Auto) 0.1 Absolute Neuts (auto) 12.5 H Absolute Lymphs (auto) 2.76 PT 20.8 H INR 1.8 APTT 41.6 H Sodium 133 L Potassium 3.8 Chloride 102 Carbon Dioxide 19.0 L Anion Gap 12 BUN 46 H Creatinine 2.87 H Estim Creat Clear Calc 15.49 Est GFR (MDRD) Af Amer 22 L Est GFR (MDRD) Non-Af 18 L BUN/Creatinine Ratio 16.0 Glucose 129 H Calcium 8.3 L Total Bilirubin 1.70 H AST 38 H ALT 27 Alkaline Phosphatase 121 H Total Protein 7.5 Albumin 2.9 L Globulin 4.6 H Albumin/Globulin Ratio 0.6 L Clinical Impression(s) from Imaging Studies Chest X-Ray 07/04/18 14:19 IMPRESSION: Linear atelectasis and/or scarring at the left lung base. Mild increased markings at the right lung base suggestive of scarring. Electronically Signed: Hernandez Eli MD at 14:43 EST , Service support , Medications Given Sodium Chloride () 1,000 mls @ 250 mls/hr IV .Q4H MATT Last Admin: 07/04/18 14:34 Dose: 250 mls/hr Piperacillin Sod/Tazobactam (Sod 3.375 gm/ Sodium Chloride) 50 mls @ 100 mls/hr IV X1 ONE Stop: 07/04/18 15:39 Discontinued Medications Morphine Sulfate () 4 mg IV X1 ONE Stop: 07/04/18 14:21 Last Admin: 07/04/18 14:34 Dose: 4 mg Ondansetron HCl (Zofran) 4 mg IV X1 ONE Stop: 07/04/18 14:21 Last Admin: 07/04/18 14:34 Dose: 4 mg Emergency Department Course and Treatment: Patient last had a paracentesis therapeutically last week. Presents tachycardic with diffuse abdominal pain and tenderness, and on her lab work she has a leukocytosis of 17.2. This is concerning for possible spontaneous bacterial peritonitis. Sepsis workup was performed. Patient was given IV fluids for hydration, morphine and Zofran for symptomatic relief. Labs remarkable for the leukocytosis, renal insufficiency, elevated bilirubin, and elevated coags. Lactate was 2.7. Blood cultures and urine culture pending. Chest x-ray showed no sign of pneumonia. Patient was empirically started on Zosyn for concern for spontaneous bacterial peritonitis. She was discussed with Dr. Eli, who will perform a diagnostic and therapeutic paracentesis on her tomorrow, but given her coags today, he plans to give her fresh frozen plasma prior to the procedure. Antibiotics were not held in the meantime due to the need for antibiotics to be started as soon as possible for concern for SBP. Patient was discussed with the hospitalist and admitted for further management of severe sepsis, SBP, and hepatorenal failure. Treatment Plan: [] Disposition: [] Impression: SBP, severe sepsis, hepatorenal failure This note was generated with [employer] dictation software. It may contain incorrect words, spelling, and punctuation that were not noted in review of the chart prior to signing ED Disposition - Plan for ED Patient: Disposition: Acute Care Hospital [facility]
[2018-07-04] MEDS: 0.9% Normal Saline 1,000 ML 250 ML IV (14:34)
[2018-07-04] MEDS: Morphine 4 MG/ML Syringe IV (14:34)
[2018-07-04] MEDS: Ondansetron 4 MG/2 ML Vial IV (14:34)
[2018-07-04 14:54] LABS: International Normalized Ratio 1.8; Prothrombin Time (Protime)PT. 20.8 SECONDS (11.7-14.9)
[2018-07-04 14:55] LABS: Partial Thromboplast Time 41.6 Seconds (24.1-36.2)
[2018-07-04 14:57] LABS: Absolute Lymphocyte Count 2.76 X10^3/ul (0.83-4.51); Absolute Neutrophil Count 12.5 X10^3/uL (2.0-7.7); Basophil# 0.02 X10^3/uL; Basophil% 0.1 % (0-1); Differential Indicated SCAN CRITERIA MET; Eosinophil# 0.05 X10^3/uL; Eosinophils% 0.3 % (0-5); Hematocrit 30.7 % (37-47); Hemoglobin 10.1 g/dl (12.0-15.0); Lymphocyte # 2.76 X10^3/ul (4.0); Lymphocyte % 16.1 % (19-41); Mean Corp Hgb Conc 32.9 g/gl (32-36); Mean Corpuscular Hgb 29.9 pg (27.0-32.0); Mean Corpuscular Volume 90.8 fL (81-99); Mean Platelet Vol. 10.7 fl (6.2-12.0); Monocyte# 1.73 X10^3/uL; Monocyte% 10.1 % (0-10); Neutrophil # 12.53 X10^3/uL (2.7-7.7); Neutrophil % 73.1 % (47-70); POSITIVE COUNT NO; POSITIVE DIFFERENTIAL YES; POSITIVE MORPHOLOGY YES; Platelet Count 244 K/mm3 (150-450); RBC Distribution Width CV 19.2 % (11.6-14.6); RBC Distribution Width SD 63.8 fl (35.1-43.9); Red Blood Count 3.38 M/mm3 (4.2-5.4); White Blood Count 17.2 K/mm3 (4.4-11.0)
[2018-07-04 15:00] LABS: ALB/GLOB Ratio 0.6 RATIO (0.9-2.4); AST(SGOT) 38 U/L (15-37); Alanine Aminotransfer ALT/SGPT 27 U/L (13-56); Albumin, Serum 2.9 g/dL (3.2-5.0); Alkaline Phosphatase 121 U/L (45-117); Anion Gap 12 (5-15); BUN 46 mg/dL (7-18); Calcium,Total 8.3 mg/dL (8.5-10.1); Chloride 102 mmol/L (98-107); Creatinine, Serum 2.87 mg/dL (0.55-1.02); EST Glomerular Filtration Rate 18 mL/min (>60); Est Glom Filt Rate - Afr Amer 22 mL/min (>60); Estimated Creatinine Clearance 15.49 ml/min; Globulin 4.6 g/dL (2.2-4.2); Glucose 129 mg/dL (74-106); Potassium 3.8 mmol/L (3.5-5.1); Protein, Total 7.5 g/dL (6.4-8.2); Sodium Level 133 mmol/L (136-145)
[2018-07-04 15:35] LABS: Lactic Acid 2.7 mmol/L (0.4-2.0)
--- NOTE | 2018-07-04 15:35 | ED.RN ---
LACTIC 2.[address] LAB[address] DR [place]
[2018-07-04 15:41] LABS: Mucous, Urine 0 SEEN /hpf (<or=2+); Red Blood Cells-Urine 0 SEEN /hpf (0-5)
[2018-07-04 15:52] LABS: Color, Urine Yellow (Yellow); Glucose, Dipstick Normal (Normal); Ketone-Dipstick 5 mg/dl (Negative); Leukocyte Esterase-Dipstick 25 /ul (Negative); Nitrite-Dipstick Negative (Negative); Occult Blood-Urine Negative /ul (Negative); Protein-Dipstick 30 mg/dl (Negative); Specific Gravity, Urine 1.025 (1.002-1.030); Urine Bilirubin Dipstick Negative (Negative); Urine Clarity Sl. Cloudy (Clear); Urine Urobilinogen 1 mg/dl (Normal)
--- NOTE | 2018-07-04 16:10 | HP.PCM_ITS ---
<Autumn Segovia - Last Filed: 07/04/18 16:27> Problem List (1) Anemia Status: Chronic (2) Renal failure Status: Chronic (3) Spontaneous bacterial peritonitis Status: Acute (4) Alcoholic cirrhosis of liver Status: Chronic (5) Tobacco abuse Status: Chronic (6) Stage 1 mild COPD by GOLD classification Status: Chronic (7) Lung mass Status: Chronic History of Present Illness Date of Admission: 07/04/18 Chief Complaint: Abdominal pain. The patient is a 58 year old F who presents emergency room due to abdominal pain. She reports her abdominal pain began Wednesday. She describes the pain as stabbing in nature. She states her symptoms feel similar to prior admission approximately 1 month ago when she was treated for SBP. Patient undergoes weekly paracentesis due to chronic liver failure/cirrhosis/ascites. Her last paracentesis at [place] was last 06/28/2018. She also reports diarrhea for the past 2 days and poor oral intake. Denies nausea, emesis. Denies fever, chills. She has a past medical history of chronic kidney disease stage IV, chronic normocytic normochromic anemia, alcoholic cirrhosis, chronic COPD, hypothyroidism, GERD, chronic lung mass, chronic diastolic CHF, tobacco dependence. Past Medical History Past Medical History (Chronic Problems): Chronic Problems (Last Reviewed 05/04/18 @ 13:46 by YEMI Caldwell) Anemia (Chronic) Renal failure (Chronic) Alcoholic cirrhosis of liver (Chronic) Tobacco abuse (Chronic) Stage 1 mild COPD by GOLD classification (Chronic) Lung mass (Chronic) Medical History: Medical History (Last Reviewed 05/04/18 @ 13:46 by YEMI Caldwell) Alcoholic cirrhosis of liver with ascites K70.31 Chronic obstructive pulmonary disease J44.9 Cirrhosis K74.60 Hypothyroidism E03.9 Nicotine dependence, uncomplicated F17.200 Nutritional anemia D53.9 Allergies No Known Allergies Allergy (Verified 07/04/18 13:16) Home Medications: Ambulatory Orders Medication Instructions Recorded pantoprazole 40 mg tablet,delayed 40 mg PO DAILY 02/28/18 release Levothyroxine [Synthroid] 25 mcg PO DAILY 05/31/18 Albuterol Inhaler [Ventolin Hfa 2 puff INHALATION BID 07/04/18 (SP)] Ascorbic Acid [Vitamin C] 1,000 mg PO TIDCM 07/04/18 Surgical History: Surgical History (Last Reviewed 05/04/18 @ 13:46 by YEMI Caldwell) H/O dilation and curettage Z98.890 18 yo miscarriage Surgical History: - - History of dilation and curettage. 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 Lives: With Family Smoking Status: Current every day smoker Tobacco Use: Cigarettes Alcohol: None Drugs: None - *Family History Maternal Family History: Family History (Last Reviewed 07/04/18 @ 16:12 by YEMI Bueno) Father Myocardial infarction Mother Heart disease Kidney disease Liver disease Brother Brain cancer Paternal Family History: Family History (Last Reviewed 07/04/18 @ 16:12 by YEMI Bueno) Father Myocardial infarction Mother Heart disease Kidney disease Liver disease Brother Brain cancer Review of Systems Constitutional: Denies: Chills, Fever, Weight Change HEENT: Denies: Head Aches, Sinus Congestion, Sinus Drainage Cardiovascular: Denies: Chest Pain, Palpitations Respiratory: Denies: Cough, Shortness of breath at rest, Sputum production Gastrointestinal: Reports: Abdominal Pain, Diarrhea, - - Ascites. Denies: Hematochezia, Nausea, Vomiting Genitourinary: Denies: Dysuria Musculoskeletal: Denies: Joint Pain, Joint Tenderness Skin: Denies: Rash, Wounds Neurological: Denies: Numbness, Tingling, Focal weakness Psychiatric: Denies: Anxiety, Depression Hematologic/ Lymphatic: Denies: Easy Bruising, Easy Bleeding VTE Information - Inpt Only VTE Present on Admission: No VTE Mechan Device Prophylaxis: None VTE Pharm Prophylaxis ordered?: Yes - Physical Exam General: Alert, Oriented x3, Cooperative, No apparent distress HEENT: Atraumatic, PERRLA, EOMI, Normocephalic Oral: Moist Mucosa Neck: Supple, No JVD, Negative Carotid Bruits Lungs: Clear to auscultation, Diminished Cardiovascular: Regular Rhythm, Normal S1, Normal S2, No murmurs, Tachycardic Abdomen: Bowel Sounds Present, Soft, Distended, Tender, - - Ascites Extremities: No clubbing, No cyanosis, No edema, Capillary Refill Less than 3 Seconds Skin: No rashes, No breakdown Musculoskeletal: No Tenderness to Palpation of Joints or Extremities Neurological: Cranial nerves II-XII grossly intact, Neuro grossly intact Psych/Mental Status: Normal Affect, Appropriate Vital Signs Temp Pulse Resp BP Pulse Ox 98.5 F 98 16 127/77 H 100 07/04/18 15:10 07/04/18 15:08 07/04/18 15:08 07/04/18 15:08 07/04/18 15:08 Oxygen Flow Rate (L/min) 2 Oxygen Delivery Method Nasal Cannula Weight: 100 lb Body Mass Index (BMI) 19.5 Laboratory Tests Past 24 Hrs 07/04/18 07/04/18 07/04/18 13:35 13:35 13:35 WBC 17.2 H RBC 3.38 L Hgb 10.1 L Hct 30.7 L MCV 90.8 MCH 29.9 MCHC 32.9 RDW 19.2 H RDW Differential 63.8 H Plt Count 244 MPV 10.7 Immature Gran % (Auto) 0.300 Neut % (Auto) 73.1 H Lymph % (Auto) 16.1 L [place] % (Auto) 10.1 H Eos % (Auto) 0.3 Baso % (Auto) 0.1 Absolute Neuts (auto) 12.5 H Absolute Lymphs (auto) 2.76 Total Counted Not Reportable Differential Comment COMMENT Diff Path Review September foll PT 20.8 H INR 1.8 APTT 41.6 H Sodium 133 L Potassium 3.8 Chloride 102 Carbon Dioxide 19.0 L Anion Gap 12 BUN 46 H Creatinine 2.87 H Estim Creat Clear Calc 15.49 Est GFR (MDRD) Af Amer 22 L Est GFR (MDRD) Non-Af 18 L BUN/Creatinine Ratio 16.0 Glucose 129 H Lactic Acid Calcium 8.3 L Total Bilirubin 1.70 H AST 38 H ALT 27 Alkaline Phosphatase 121 H Total Protein 7.5 Albumin 2.9 L Globulin 4.6 H Albumin/Globulin Ratio 0.6 L Urine Color Urine Clarity Urine pH Ur Specific [place] Urine Protein Urine Glucose (UA) Urine Ketones Urine Occult Blood Urine Nitrite Urine Bilirubin Urine Urobilinogen Ur Leukocyte Esterase Urine RBC Urine WBC Ur Squamous Epith Cells Urine Bacteria Urine Mucus 07/04/18 07/04/18 14:45 15:30 WBC RBC Hgb Hct MCV MCH MCHC RDW RDW Differential Plt Count MPV Immature Gran % (Auto) Neut % (Auto) Lymph % (Auto) [place] % (Auto) Eos % (Auto) Baso % (Auto) Absolute Neuts (auto) Absolute Lymphs (auto) Total Counted Differential Comment Diff Path Review PT INR APTT Sodium Potassium Chloride Carbon Dioxide Anion Gap BUN Creatinine Estim Creat Clear Calc Est GFR (MDRD) Af Amer Est GFR (MDRD) Non-Af BUN/Creatinine Ratio Glucose Lactic Acid 2.7 H Calcium Total Bilirubin AST ALT Alkaline Phosphatase Total Protein Albumin Globulin Albumin/Globulin Ratio Urine Color Pending Urine Clarity Pending Urine pH Pending Ur Specific [place] Pending Urine Protein Pending Urine Glucose (UA) Pending Urine Ketones Pending Urine Occult Blood Pending Urine Nitrite Pending Urine Bilirubin Pending Urine Urobilinogen Pending Ur Leukocyte Esterase Pending Urine RBC Pending Urine WBC Pending Ur Squamous Epith Cells Pending Urine Bacteria Pending Urine Mucus Pending Assessment/Plan All Active Problems (Last Reviewed 05/04/18 @ 13:46 by Tasia Jenkins NP-[place]) Spontaneous bacterial peritonitis (Acute) 1. Sepsis secondary to suspected SBP, status post paracentesis 06/28/18- Patient receives weekly paracentesis at [facility] due to his cirrhosis and liver failure. CT of abdomen 05/31/18 showed a cirrhosis, ascites, distended gallbladder without stones, bowel wall thickening consistent with possible colitis. Demineralization and numerous compression fractures. WBC 17.2. Lactic acid 2.7. Tachycardic. Blood cultures pending. IV Rocephin. Therapeutic paracentesis ordered for tomorrow. 2. Chronic kidney disease stage IV-at baseline. Patient does not follow-up with nephrology. Reports she plans on establishing with Dr. Hernandez. Trend BMP. 3. Chronic normochromic normocytic anemia- stable. 4. Alcoholic cirrhosis-stable. 5. Chronic COPD-no acute exacerbation. 6. Hypothyroidism-continue Synthroid regimen. 7. GERD-continue PPI. 8. Chronic lung mass-continue outpatient follow-up with CT. 9. Chronic diastolic CHF-Echocardiogram shows an EF of 65%, stage II diastolic dysfunction, RVSP estimated to be 41 mmHg. 10. Tobacco dependence-encouraged smoking cessation. Current half pack per day smoker. Declines nicotine replacement patch. 11. Moderate to severe protein calorie malnutrition-dietitian consult. DVT prophylaxis-SCDs This patient was seen by YEMI Bueno under the supervision of Dr. Dukes. <RoselineBaldomero F - Last Filed: 07/04/18 18:46> History of Present Illness The patient is a 58 year old F [] Past Medical History Medical History: Medical History (Last Reviewed 05/04/18 @ 13:46 by Tasia Jenkins NP-C) Alcoholic cirrhosis of liver with ascites K70.31 Chronic obstructive pulmonary disease J44.9 Cirrhosis K74.60 Hypothyroidism E03.9 Nicotine dependence, uncomplicated F17.200 Nutritional anemia D53.9 Allergies No Known Allergies Allergy (Verified 07/04/18 13:16) Surgical History: Surgical History (Last Reviewed 05/04/18 @ 13:46 by Tasia Jenkins NP-C) H/O dilation and curettage Z98.890 18 yo miscarriage - *Family History Maternal Family History: Family History (Last Reviewed 07/04/18 @ 16:12 by YEMI Bueno) Father Myocardial infarction Mother Heart disease Kidney disease Liver disease Brother Brain cancer Paternal Family History: Family History (Last Reviewed 07/04/18 @ 16:12 by YEMI Bueno) Father Myocardial infarction Mother Heart disease Kidney disease Liver disease Brother Brain cancer - Physical Exam Vital Signs Temp Pulse Resp BP Pulse Ox 98.9 F 97 16 121/69 H 100 07/04/18 16:15 07/04/18 16:41 07/04/18 16:15 07/04/18 16:20 07/04/18 16:15 Oxygen Flow Rate (L/min) 2 Oxygen Delivery Method Room Air Weight: 113 lb 1.554 oz Body Mass Index (BMI) 22.1 Intake and Output for Last 24 Hours 07/02/18 07/03/18 07/04/18 23:59 23:59 23:59 Intake Total 263 / 263 Balance 263 / 263 Laboratory Tests Past 24 Hrs 07/04/18 07/04/18 07/04/18 13:35 13:35 13:35 WBC 17.2 H RBC 3.38 L Hgb 10.1 L Hct 30.7 L MCV 90.8 MCH 29.9 MCHC 32.9 RDW 19.2 H RDW Differential 63.8 H Plt Count 244 MPV 10.7 Immature Gran % (Auto) 0.300 Neut % (Auto) 73.1 H Lymph % (Auto) 16.1 L [place] % (Auto) 10.1 H Eos % (Auto) 0.3 Baso % (Auto) 0.1 Absolute Neuts (auto) 12.5 H Absolute Lymphs (auto) 2.76 Total Counted Not Reportable Differential Comment COMMENT Diff Path Review September foll PT 20.8 H INR 1.8 APTT 41.6 H Sodium 133 L Potassium 3.8 Chloride 102 Carbon Dioxide 19.0 L Anion Gap 12 BUN 46 H Creatinine 2.87 H Estim Creat Clear Calc 15.49 Est GFR (MDRD) Af Amer 22 L Est GFR (MDRD) Non-Af 18 L BUN/Creatinine Ratio 16.0 Glucose 129 H Lactic Acid Calcium 8.3 L Total Bilirubin 1.70 H AST 38 H ALT 27 Alkaline Phosphatase 121 H Total Protein 7.5 Albumin 2.9 L Globulin 4.6 H Albumin/Globulin Ratio 0.6 L Urine Color Urine Clarity Urine pH Ur Specific [place] Urine Protein Urine Glucose (UA) Urine Ketones Urine Occult Blood Urine Nitrite Urine Bilirubin Urine Urobilinogen Ur Leukocyte Esterase Urine RBC Urine WBC Ur Squamous Epith Cells Urine Bacteria Urine Mucus Blood Type 07/04/18 07/04/18 07/04/18 14:45 15:30 17:00 WBC RBC Hgb Hct MCV MCH MCHC RDW RDW Differential Plt Count MPV Immature Gran % (Auto) Neut % (Auto) Lymph % (Auto) [place] % (Auto) Eos % (Auto) Baso % (Auto) Absolute Neuts (auto) Absolute Lymphs (auto) Total Counted Differential Comment Diff Path Review PT INR APTT Sodium Potassium Chloride Carbon Dioxide Anion Gap BUN Creatinine Estim Creat Clear Calc Est GFR (MDRD) Af Amer Est GFR (MDRD) Non-Af BUN/Creatinine Ratio Glucose Lactic Acid 2.7 H Calcium Total Bilirubin AST ALT Alkaline Phosphatase Total Protein Albumin Globulin Albumin/Globulin Ratio Urine Color Yellow Urine Clarity Sl. Cloudy Urine pH 5.0 Ur Specific [place] 1.025 Urine Protein 30 H Urine Glucose (UA) Normal Urine Ketones 5 H Urine Occult Blood Negative Urine Nitrite Negative Urine Bilirubin Negative Urine Urobilinogen 1 H Ur Leukocyte Esterase 25 H Urine RBC 0 SEEN Urine WBC 0-5 SEEN Ur Squamous Epith Cells 5-10 SEEN Urine Bacteria 1+ Urine Mucus 0 SEEN Blood Type A POSITIVE Code Visit Addendum: Dr. Dukes I personally examined the patient and reviewed the chart. I agree with the above. 58-year-old female who has a known history of alcoholic cirrhosis who gets weekly paracentesis presents with abdominal pain. She was initially treated for splint obtain he has bacterial peritonitis in May where she presented with a leukocytosis and abdominal pain. She has since been doing okay and has been going to [place] for her weekly paracentesis, with her most recent being on Wednesday. She states over the last couple days she has developed abdominal pain which is what brought her into the hospital. In the ER she was found to have a leukocytosis as well as tachycardia, though she is afebrile. She also has an elevated INR to 1.8, and she is not on anticoagulation and she has been having elevated bilirubin levels though they do appear better on this admission. I discussed with her that she has a meld score of 27-28 which indicates a 20% mortality over the next 3 months, she states that she says is supposed to be seeing a software applications engineer in [place] though she has never met him. She has seen his nurse practitioner. I did recommend that she follow-up with a software applications engineer she can have a relationship with either in [place] or [place] for possible transplant workup. She does not drink alcohol. We will obtain a paracentesis tomorrow as well as body fluid cultures and will continue with Rocephin. She may need to be discharged on chronic prophylaxis as well as possibly a permanent drainage catheter. Inpatient E&M: [id number] [place] [id number]
[2018-07-04 16:11] LABS: Bacteria 1+ /hpf (None Seen); Squamous Epithelial Cells - UA 5-10 SEEN /hpf (5-10); White Blood Cells 0-5 SEEN /hpf (0-5)
[2018-07-04] MEDS: 0.9% Normal Saline 1,000 ML 75 ML IV (16:30)
[2018-07-04 18:54] LABS: Reflex Lactate? Y
[2018-07-04 19:55] LABS: Lactic Acid 1.8 mmol/L (0.4-2.0)
[2018-07-04] MEDS: Acetaminophen 325 MG Tablet 650 MG PO (20:47)
[2018-07-05] VITALS (13 sets, daily range): BP systolic 89–105; BP diastolic 55–68; PULSE 85–102; RESP 16–18; TEMP 36.8–37.2; O2SAT 93–99
--- NOTE | 2018-07-05 | FLU_PTH ---
PATIENT: KEYLA MATTHEWS LOC: PCU U#:[id number] AGE/SX: 58/F ROOM: [facility] RE07/04/[address]: Dr. Trell Velasquez DO : 1960 BED: 1 DIS: 07/06/2018 SPEC #: [id number] RECD: 07/05/18 13:48 STATUS: YAZAN REQ #: [id number] KENNA: 07/05/18 00:[address]: Trell Velasquez DEPT: CYTOLOGY RECD BY: Gerardo Bruce ENTERED: 07/05/18 14:24 SP TYPE: Fluid OTHR DR: Dr. Baldomero Dukes, MD Paulette Garza, DRAPERY ESTIMATOR-C Tissues: PARACENTESIS FLUID Procedures: Special Stain Group II Surgery Specimen Level IV Cytospin Fluid HEADER OPERATION: Ultrasound-guided paracentesis, right PRE-OP DIAGNOSIS: Ascites TISSUE SUBMITTED: Paracentesis fluid for cytology DIAGNOSIS CYTOLOGY Paracentesis fluid for cytology (cytospin and cell block): Negative for malignant cells. Acute inflammation. See cytology study and comment. SJ:amauri 07/06/18 COMMENT Clinical correlation and appropriate follow up are necessary. Please make reference to previous specimen ([id number] and [id number]), paracentesis fluid for cytology with diagnosis of negative for malignant cells. CYTOLOGY STUDY Slides are reviewed. The specimen consists of numerous neutrophils, mesothelial cells, macrophages and lymphocytes. CYTOLOGY GROSS Received is 105 ml of cloudy yellow fluid labeled with the patient's name and and designated per the requisition as paracentesis. Submitted for cytology preparation including cell block. / 07/05/18 TC:2 CPT: 26310, 07770
[2018-07-05] MEDS: 0.9% Normal Saline 1,000 ML 75 ML IV ×2 (03:49→20:02)
[2018-07-05 06:11] LABS: International Normalized Ratio 1.9
[2018-07-05 06:13] LABS: Absolute Lymphocyte Count 2.27 X10^3/ul (0.83-4.51); Absolute Neutrophil Count 7.1 X10^3/uL (2.0-7.7); Basophil# 0.01 X10^3/uL; Basophil% 0.1 % (0-1); Eosinophil# 0.14 X10^3/uL; Eosinophils% 1.3 % (0-5); Hematocrit 24.3 % (37-47); Hemoglobin 7.9 g/dl (12.0-15.0); Lymphocyte # 2.27 X10^3/ul (4.0); Lymphocyte % 21.7 % (19-41); Mean Corp Hgb Conc 32.5 g/gl (32-36); Mean Corpuscular Hgb 29.8 pg (27.0-32.0); Mean Corpuscular Volume 91.7 fL (81-99); Mean Platelet Vol. 10.4 fl (6.2-12.0); Monocyte# 0.97 X10^3/uL; Monocyte% 9.3 % (0-10); Neutrophil # 7.07 X10^3/uL (2.7-7.7); Neutrophil % 67.4 % (47-70); Platelet Count 164 K/mm3 (150-450); RBC Distribution Width CV 18.7 % (11.6-14.6); RBC Distribution Width SD 60.5 fl (35.1-43.9); Red Blood Count 2.65 M/mm3 (4.2-5.4); White Blood Count 10.5 K/mm3 (4.4-11.0)
[2018-07-05 06:28] LABS: Anion Gap 11 (5-15); BUN 50 mg/dL (7-18); Calcium,Total 7.8 mg/dL (8.5-10.1); Chloride 106 mmol/L (98-107); Creatinine, Serum 2.94 mg/dL (0.55-1.02); EST Glomerular Filtration Rate 18 mL/min (>60); Est Glom Filt Rate - Afr Amer 21 mL/min (>60); Estimated Creatinine Clearance 15.16 ml/min; Glucose 91 mg/dL (74-106); Sodium Level 136 mmol/L (136-145)
[2018-07-05 06:45] LABS: POSITIVE COUNT NO; POSITIVE DIFFERENTIAL NO; POSITIVE MORPHOLOGY NO
[2018-07-05] MEDS: Levothyroxine 25 MCG TABLET PO (06:59)
[2018-07-05 08:37] LABS: Iron 32 ug/dL (50-170); Iron Binding Capacity,Total 104 ug/dL (250-450); PERCENT IRON SATURATION 30.8 % (15.0-55.0)
[2018-07-05] MEDS: Pantoprazole Sodium 40 MG Tablet PO (09:09)
[2018-07-05] MEDS: Acetaminophen 325 MG Tablet 650 MG PO ×2 (09:55→20:02)
--- NOTE | 2018-07-05 14:00 | CASEMGMT ---
ANJALI COELHO assessment: Face to Face with patient for initial transition planning/care coordination assessment. ANJALI COELHO introduced self and role at [facility], pt voices understanding and consents to assessment at this time. Pt is sitting up in bed in no distress at this time. Pt is A/Ox4 at this time and answers all questions appropriately at this time. Care providers, pharmacy, and demographics verified at this time. PCP: Paulette Garza Specialists: MONIQUE Aguirre in [place] but states has not seen for about a year. Preferred Pharmacy: [facility] Insurance: [facility], pt states that she was without insurance during her last visit at the beginning of may and pt states 'I now have a $13,000 bill from here because I didn't f/u and get my insurance changed over, it was stupid.' Message left with [facility] to come speak with pt regarding previous bill. Prescription Benefit: [facility] Living Will/HPOA: Pt states has LW/HPOA paperwork at home but has not completed at this time. Pt declines any further info at this time. LNOK: Neena Ca, daughter Living Arrangements: Pt states lives alone on the main level of a 2 story home with 1 step in and pt states no concerns at home at this time. Pt states is normally independent with ADL's at home. Transportation: Pt states that she drives self and states no transportation concerns at this time. DME/HHC: Pt states does not have any current DME and states no need for any at this time. Pt states no hx of HHC or SNF in the past. Pt states no concerns with going home at time of discharge. Pt states that she is now on disability which is why she lost her medicaid and had to get new insurance. Pt states smoke about 1/2-1pack daily and states quit drinking ETOH in September. Pt states no further concerns/needs at this time. CM to follow for any further discharge planning/needs. Advised pt to ask for CM if any further questions/concerns/needs arise, voices understanding. Plan: Home, pending PT/OT [place]. [place] ANJALI COELHO
--- NOTE | 2018-07-05 14:10 | PN_ITS ---
Subjective: Patient seen and examined. Reports abdominal pain is improving. To undergo paracentesis this afternoon. Denies fever, chills. - Physical Exam General: Alert, Oriented x3, Cooperative, - HEENT: Atraumatic, PERRLA, EOMI, Normocephalic Oral: Dry Mucosa Neck: Supple, No JVD, Negative Carotid Bruits Lungs: Clear to auscultation, Diminished Cardiovascular: Regular rate, Regular Rhythm, Normal S1, Normal S2, No murmurs Abdomen: Bowel Sounds Present, Soft, Tender, - - Ascites Extremities: No clubbing, No cyanosis, No edema, Capillary Refill Less than 3 Seconds Skin: No rashes, No breakdown Musculoskeletal: No Tenderness to Palpation of Joints or Extremities Neurological: Cranial nerves II-XII grossly intact, Neuro grossly intact Psych/Mental Status: Normal Affect, Appropriate Vital Signs Temp Pulse Resp BP Pulse Ox 98.5 F 102 H 18 105/61 97 07/05/18 12:00 07/05/18 12:00 07/05/18 12:00 07/05/18 12:00 07/05/18 12:00 Oxygen Flow Rate (L/min) 2 Oxygen Delivery Method Room Air Weight: 113 lb 1.554 oz Body Mass Index (BMI) 22.1 Intake and Output for Last 24 Hours 07/03/18 07/04/18 07/05/18 23:59 23:59 23:59 Intake Total 1149 / 1149 1561 / 1561 Balance 1149 / 1149 1561 / 1561 Microbiology Past 72 Hours 07/04/18 15:30 Urine Culture - Final Urine, Clean Catch Mixed Gram Pos & Gram Neg Org Laboratory Tests Past 24 Hrs 07/04/18 07/04/18 07/04/18 13:20 13:20 13:35 WBC 17.2 H RBC 3.38 L Hgb 10.1 L Hct 30.7 L MCV 90.8 MCH 29.9 MCHC 32.9 RDW 19.2 H RDW Differential 63.8 H Plt Count 244 MPV 10.7 Immature Gran % (Auto) 0.300 Neut % (Auto) 73.1 H Lymph % (Auto) 16.1 L [place] % (Auto) 10.1 H Eos % (Auto) 0.3 Baso % (Auto) 0.1 Absolute Neuts (auto) 12.5 H Absolute Lymphs (auto) 2.76 Total Counted Not Reportable Differential Comment COMMENT Diff Path Review May foll PT INR APTT Sodium Potassium Chloride Carbon Dioxide Anion Gap BUN Creatinine Estim Creat Clear Calc Est GFR (MDRD) Af Amer Est GFR (MDRD) Non-Af BUN/Creatinine Ratio Glucose Lactic Acid Calcium Iron TIBC Iron Saturation Total Bilirubin AST ALT Alkaline Phosphatase Total Protein Albumin Globulin Albumin/Globulin Ratio Urine Color Urine Clarity Urine pH Ur Specific [place] Urine Protein Urine Glucose (UA) Urine Ketones Urine Occult Blood Urine Nitrite Urine Bilirubin Urine Urobilinogen Ur Leukocyte Esterase Urine RBC Urine WBC Ur Squamous Epith Cells Urine Bacteria Urine Mucus Fluid Source Fluid Color Fluid Appearance Fluid WBC Fluid RBC Fluid Tot Cell Count Fl Pathologist Comment Fluid Glucose Pending Fluid Total Protein Pending Fluid LDH Pending Fluid Comment 2 Blood Type 07/04/18 07/04/18 07/04/18 13:35 13:35 14:45 WBC RBC Hgb Hct MCV MCH MCHC RDW RDW Differential Plt Count MPV Immature Gran % (Auto) Neut % (Auto) Lymph % (Auto) [place] % (Auto) Eos % (Auto) Baso % (Auto) Absolute Neuts (auto) Absolute Lymphs (auto) Total Counted Differential Comment Diff Path Review PT 20.8 H INR 1.8 APTT 41.6 H Sodium 133 L Potassium 3.8 Chloride 102 Carbon Dioxide 19.0 L Anion Gap 12 BUN 46 H Creatinine 2.87 H Estim Creat Clear Calc 15.49 Est GFR (MDRD) Af Amer 22 L Est GFR (MDRD) Non-Af 18 L BUN/Creatinine Ratio 16.0 Glucose 129 H Lactic Acid 2.7 H Calcium 8.3 L Iron TIBC Iron Saturation Total Bilirubin 1.70 H AST 38 H ALT 27 Alkaline Phosphatase 121 H Total Protein 7.5 Albumin 2.9 L Globulin 4.6 H Albumin/Globulin Ratio 0.6 L Urine Color Urine Clarity Urine pH Ur Specific [place] Urine Protein Urine Glucose (UA) Urine Ketones Urine Occult Blood Urine Nitrite Urine Bilirubin Urine Urobilinogen Ur Leukocyte Esterase Urine RBC Urine WBC Ur Squamous Epith Cells Urine Bacteria Urine Mucus Fluid Source Fluid Color Fluid Appearance Fluid WBC Fluid RBC Fluid Tot Cell Count Fl Pathologist Comment Fluid Glucose Fluid Total Protein Fluid LDH Fluid Comment 2 Blood Type 07/04/18 07/04/18 07/04/18 15:30 17:00 19:10 WBC RBC Hgb Hct MCV MCH MCHC RDW RDW Differential Plt Count MPV Immature Gran % (Auto) Neut % (Auto) Lymph % (Auto) [place] % (Auto) Eos % (Auto) Baso % (Auto) Absolute Neuts (auto) Absolute Lymphs (auto) Total Counted Differential Comment Diff Path Review PT INR APTT Sodium Potassium Chloride Carbon Dioxide Anion Gap BUN Creatinine Estim Creat Clear Calc Est GFR (MDRD) Af Amer Est GFR (MDRD) Non-Af BUN/Creatinine Ratio Glucose Lactic Acid 1.8 Calcium Iron TIBC Iron Saturation Total Bilirubin AST ALT Alkaline Phosphatase Total Protein Albumin Globulin Albumin/Globulin Ratio Urine Color Yellow Urine Clarity Sl. Cloudy Urine pH 5.0 Ur Specific [place] 1.025 Urine Protein 30 H Urine Glucose (UA) Normal Urine Ketones 5 H Urine Occult Blood Negative Urine Nitrite Negative Urine Bilirubin Negative Urine Urobilinogen 1 H Ur Leukocyte Esterase 25 H Urine RBC 0 SEEN Urine WBC 0-5 SEEN Ur Squamous Epith Cells 5-10 SEEN Urine Bacteria 1+ Urine Mucus 0 SEEN Fluid Source Fluid Color Fluid Appearance Fluid WBC Fluid RBC Fluid Tot Cell Count Fl Pathologist Comment Fluid Glucose Fluid Total Protein Fluid LDH Fluid Comment 2 Blood Type A POSITIVE 07/05/18 07/05/18 07/05/18 05:45 05:45 05:45 WBC 10.5 RBC 2.65 L Hgb 7.9 L Hct 24.3 L MCV 91.7 MCH 29.8 MCHC 32.5 RDW 18.7 H RDW Differential 60.5 H Plt Count 164 MPV 10.4 Immature Gran % (Auto) 0.200 Neut % (Auto) 67.4 Lymph % (Auto) 21.7 [place] % (Auto) 9.3 Eos % (Auto) 1.3 Baso % (Auto) 0.1 Absolute Neuts (auto) 7.1 Absolute Lymphs (auto) 2.27 Total Counted Not Reportable Differential Comment Diff Path Review PT 22.0 H INR 1.9 APTT Sodium 136 Potassium 4.0 Chloride 106 Carbon Dioxide 19.0 L Anion Gap 11 BUN 50 H Creatinine 2.94 H Estim Creat Clear Calc 15.16 Est GFR (MDRD) Af Amer 21 L Est GFR (MDRD) Non-Af 18 L BUN/Creatinine Ratio 17.0 Glucose 91 Lactic Acid Calcium 7.8 L Iron TIBC Iron Saturation Total Bilirubin AST ALT Alkaline Phosphatase Total Protein Albumin Globulin Albumin/Globulin Ratio Urine Color Urine Clarity Urine pH Ur Specific [place] Urine Protein Urine Glucose (UA) Urine Ketones Urine Occult Blood Urine Nitrite Urine Bilirubin Urine Urobilinogen Ur Leukocyte Esterase Urine RBC Urine WBC Ur Squamous Epith Cells Urine Bacteria Urine Mucus Fluid Source Fluid Color Fluid Appearance Fluid WBC Fluid RBC Fluid Tot Cell Count Fl Pathologist Comment Fluid Glucose Fluid Total Protein Fluid LDH Fluid Comment 2 Blood Type 07/05/18 07/05/18 05:45 13:20 WBC RBC Hgb Hct MCV MCH MCHC RDW RDW Differential Plt Count MPV Immature Gran % (Auto) Neut % (Auto) Lymph % (Auto) [place] % (Auto) Eos % (Auto) Baso % (Auto) Absolute Neuts (auto) Absolute Lymphs (auto) Total Counted Differential Comment Diff Path Review PT INR APTT Sodium Potassium Chloride Carbon Dioxide Anion Gap BUN Creatinine Estim Creat Clear Calc Est GFR (MDRD) Af Amer Est GFR (MDRD) Non-Af BUN/Creatinine Ratio Glucose Lactic Acid Calcium Iron 32 L TIBC 104 L Iron Saturation 30.8 Total Bilirubin AST ALT Alkaline Phosphatase Total Protein Albumin Globulin Albumin/Globulin Ratio Urine Color Urine Clarity Urine pH Ur Specific [place] Urine Protein Urine Glucose (UA) Urine Ketones Urine Occult Blood Urine Nitrite Urine Bilirubin Urine Urobilinogen Ur Leukocyte Esterase Urine RBC Urine WBC Ur Squamous Epith Cells Urine Bacteria Urine Mucus Fluid Source Pending Fluid Color Pending Fluid Appearance Pending Fluid WBC Pending Fluid RBC Pending Fluid Tot Cell Count Pending Fl Pathologist Comment Pending Fluid Glucose Fluid Total Protein Fluid LDH Fluid Comment 2 Pending Blood Type Medical Necessity - Tobacco Use Smoking Status: Current every day smoker Tobacco Use: Cigarettes Assessment/Plan All Active Problems (Last Reviewed 05/04/18 @ 13:46 by Tasia Jenkins, LAURA-C) Spontaneous bacterial peritonitis (Acute) 1. Sepsis secondary to suspected SBP, status post paracentesis 06/28/18- Patient receives weekly paracentesis at [facility] due to his cirrhosis and liver failure. CT of abdomen 05/31/18 showed a cirrhosis, ascites, distended gallbladder without stones, bowel wall thickening consistent with possible colitis. Demineralization and numerous compression fractures. WBC improving. Lactic acid 2.7 on admission. Blood cultures pending. IV Rocephin. Therapeutic paracentesis ordered for today. Consider ID consult given recurrence. Also think that palliative care consult is reasonable. 2. Chronic kidney disease stage IV-at baseline. Patient does not follow-up with nephrology. Reports she plans on establishing with Dr. Hernandez. Trend BMP. 3. Chronic normochromic normocytic anemia- stable. 4. Alcoholic cirrhosis-stable. 5. Chronic COPD-no acute exacerbation. 6. Hypothyroidism-continue Synthroid regimen. 7. GERD-continue PPI. 8. Chronic lung mass-continue outpatient follow-up with CT. 9. Chronic diastolic CHF-Echocardiogram shows an EF of 65%, stage II diastolic dysfunction, RVSP estimated to be 41 mmHg. 10. Tobacco dependence-encouraged smoking cessation. Current half pack per day smoker. Declines nicotine replacement patch. 11. Moderate to severe protein calorie malnutrition-dietitian consult. DVT prophylaxis-SCDs This patient was seen by YEMI Bueno under the supervision of Dr. Velasquez.
[2018-07-05 14:11] LABS: Pathologist Review Reviewed
[2018-07-05 14:23] LABS: Body Fluid Mononuclear WBC # 0.517 10^3/uL; Body Fluid Mononuclear WBC % 19.1 %; Body Fluid Polynuclear WBC # 2.194 10^3/uL; Body Fluid Polynuclear WBC % 80.9 %; Body Fluid Total Cells Counted 2.769 10^3/ul (0.000-0.000); White Blood Count/Body Fluid 2.711 10^3/uL
[2018-07-05 14:32] LABS: Auto B Fluid Analyzer BKGD Ct COUNTS W/IN LIMITS (W/IN LIMITS); Color/Body Fluid YELLOW; Source- Body Fluid OTHER
[2018-07-05 14:33] LABS: Appearance/Body Fluid SL CLDY
[2018-07-05 14:34] LABS: Glucose, Body Fluid 113 mg/dL (40-70); LDH,Body Fluid 77 Units/l (Not Establ.)
[2018-07-05 14:34] LABS: Red Cell Count/Body Fluid 153 /mm3
[2018-07-05 14:38] LABS: Protein, Body Fluid 1.7 g/dL (Not Establ.)
[2018-07-05 15:04] LABS: Lymphocytes 4 %; Monocytes 4 %; Neutrophil (Segs) 92 %
[2018-07-05 15:05] LABS: Body Fluid QC Type(s) BF2Q
--- NOTE | 2018-07-05 16:04 | US_ITS ---
PROCEDURE: Ultrasound guided paracentesis. DATE OF EXAMINATION: July 05, 2018.. INDICATION: Female, 58 years old. Ascites. PHYSICIAN: Hernandez Eli M.D. TECHNIQUE: The risks, benefits, and alternatives to the procedure were explained to the patient. The specific risks of bleeding, infection, and damage to bowel were detailed and accepted. Witnessed informed consent was obtained. The abdomen was ultrasonographically surveyed. An appropriate pocket of fluid was identified at the right lower quadrant. The skin were cleaned and prepped in the usual sterile fashion. Using ultrasound guidance, the peritoneal cavity was accessed with a 5-Guamanian paracentesis needle/catheter system. The trocar was removed. A total of 5320 ml of brad-colored fluid were removed from the peritoneal cavity. A 120 mL sample was sent to the laboratory. The catheter was removed and a sterile dressing was applied. The procedure was well tolerated. US/Paracentesis with US IMPRESSION: Ultrasound guided paracentesis. Electronically Signed: Hernandez Eli MD at 14:31 EST , Service support ,
[2018-07-06] VITALS (8 sets, daily range): BP systolic 102–118; BP diastolic 53–68; PULSE 87–94; RESP 16; TEMP 36.8–36.9; O2SAT 96–99
[2018-07-06] MEDS: Acetaminophen 325 MG Tablet 650 MG PO (04:55)
[2018-07-06] MEDS: Levothyroxine 25 MCG TABLET PO (04:55)
[2018-07-06] MEDS: 0.9% Normal Saline 1,000 ML 75 ML IV (09:26)
[2018-07-06] MEDS: Pantoprazole Sodium 40 MG Tablet PO (09:27)
--- NOTE | 2018-07-06 10:23 | CASEMGMT ---
This RN CM received message from Roxanne Granados, [facility] radiology clerk, to call her. Per Roxanne, pt had expressed interest with her yesterday regarding having pericentesis performed here at [facility] but they will need an order. Pt has seen Dr. Gomez, in [place] and has been getting her pericentesis at [place] but pt does not want to travel that far any longer. Per Roxanne, Dr. Hernandez has written for these in the past but according to pt, she has not actually seen Dr. Hernandez yet but is scheduled for appt on 08/10/18 with her. Pt states that she has been going to [facility] because she does not know which PCP's take her new insurance. This RN CM searched for PCP's for pt at this time via [facility] marketplace website and with pt permission, set up appt with Dr. Berry/Trell Plaza [employer] B[employer] REPAIR ESTIMATOR for her for this wednesday07/12/18 at 1100. Pt updated on all at this time, voices understanding. Jarret SANCHEZ did speak with Dr. Hernandez regarding pt at this time and Dr. Hernandez states that she will not write pericentesis order until she sees pt. Pt is also to f/u with Dr. Aguirre and he could possibly write order and have it sent to [facility]. Per Dr. Velasquez, Dr. Berry could also write order, if needed. Pt updated on all at this time and voices understanding. This RN CM did speak with Yary at Dr. Hernandez's office and they did move pt's appt up to 07/21/18 at 1030. Pt is aware of this at this time. This RN CM then went back over all appt's with pt at this time and she voices understanding. Pt also states that Selam from [facility], did come speak with pt regarding previous bill and gave her paperwork to complete regarding same. Pt voices no further questions/concerns/needs at this time. SStanny RN CM
[2018-07-06 12:31] LABS: Pathologist Comment/Body Fluid Reviewed
[2018-07-06] MEDS: Ondansetron 4 MG/2 ML Vial IV (12:54)
[2018-07-06] MEDS: 0.9% NaCl Peripheral Flush Adult/Peds IV (12:54)
--- NOTE | 2018-07-06 13:57 | DCINST_ITS ---
You will use the following diet at home:: Cardiac Discharge Activity: Return to Normal Activity Call your doctor if you observe: Fever of 101 or Higher, Inability to urinate, Shortness of breath, Dizziness, Fainting spells Allergies/Adverse Reactions: Allergies No Known Allergies Allergy (Verified 07/04/18 13:16) Medications to take at Discharge pantoprazole 40 mg tablet,delayed release 40 mg PO DAILY 02/28/18 Levothyroxine [Synthroid] 25 mcg PO DAILY 05/31/18 Albuterol Inhaler [Ventolin Hfa] 2 puff INHALATION BID 07/04/18 Ascorbic Acid [Vitamin C] 1,000 mg PO TIDCM 07/04/18 Ciprofloxacin [Cipro] 250 mg PO DAILY #30 tablet 07/06/18 Ciprofloxacin [Cipro] 500 mg PO BID #10 tablet 07/06/18 Spironolactone [Aldactone] 12.5 mg PO DAILY #30 tablet 07/06/18 hydrOXYzine tablet [Atarax tablet] 10 mg PO TID PRN PRN #30 tablet 07/06/18 The following prescriptions were given: Ciprofloxacin [Cipro] 250 mg PO DAILY #30 tablet hydrOXYzine tablet [Atarax tablet] 10 mg PO TID PRN PRN #30 tablet PRN Reason: Itching Spironolactone [Aldactone] 12.5 mg PO DAILY #30 tablet Ciprofloxacin [Cipro] 500 mg PO BID #10 tablet Orders to be completed after discharge: Renal Profile Time Frame: 2 Weeks, Location: Laboratory Primary Care Physician: Paulette Garza NP-C [Primary Care Provider] - Test Results: Test results from this visit will be discussed in further detail at your follow- up appointment, if applicable. Please Follow Up With: Trell Plaza NP-C - Dr. Berry office When: 07/12/18 Please Follow Up With: Alberto Aguirre MD When: 3 Weeks Please Follow Up With: Tonja Hernandez DO When: 07/13/18 Proposed Discharge Date: 07/06/18
--- NOTE | 2018-07-06 14:31 | DS.PCM_ITS ---
Discharge Date and Diagnosis Date of Admission: 07/04/18 Date of Discharge: 07/06/18 - Primary Discharge Diagnosis 1. Sepsis secondary to suspected SBP, status post paracentesis 2. Chronic kidney disease stage IV 3. Chronic normochromic normocytic anemia 4. Alcoholic cirrhosis 5. Chronic COPD 6. Hypothyroidism 7. GERD 8. Chronic lung mass 9. Chronic diastolic CHF 10. Tobacco dependence 11. Moderate to severe protein calorie malnutrition - Secondary Discharge Diagnosis Chronic Problems (Last Reviewed 05/04/18 @ 13:46 by Tasia Jenkins NP-[place]) Anemia (Chronic) Renal failure (Chronic) Alcoholic cirrhosis of liver (Chronic) Tobacco abuse (Chronic) Stage 1 mild COPD by GOLD classification (Chronic) Lung mass (Chronic) Hospital Course and Treatment Imaging Results: Diagnostic Data Chest X-Ray 07/04/18 14:19 IMPRESSION: Linear atelectasis and/or scarring at the left lung base. Mild increased markings at the right lung base suggestive of scarring. Electronically Signed: Hernandez Eli MD at 14:43 EST , Service support , Paracentesis Ultrasound 07/05/18 16:04 IMPRESSION: Ultrasound guided paracentesis. Electronically Signed: Hernandez Eli MD at 14:31 EST , Service support , Dr. Weeks- ID Procedures: - - Paracentesis Summary of Care Provided: The patient is a 58 year old F admitted 07/04/2018 due to abdominal pain. 1. Sepsis secondary to suspected SBP, status post paracentesis 06/28/18- Patient receives weekly paracentesis at [facility] due to his cirrhosis and liver failure. CT of abdomen 05/31/18 showed a cirrhosis, ascites, distended gallbladder without stones, bowel wall thickening consistent with possible colitis. Demineralization and numerous compression fractures. Leukocytosis resolved. IV Rocephin during admission. Patient underwent paracentesis with 5.3 L fluid removed. Discharged on Cipro 500 mg twice daily for 5 days followed by Cipro 250 mg daily thereafter per ID recommendations. Patient is to establish with Dr. Berry/Trell Plaza on Wednesday. Follow-up with Dr. Aguirre, GI in 3 weeks. Patient was started on Aldactone 12.5 mg daily. 2. Chronic kidney disease stage IV-at baseline. Patient does not follow-up with nephrology. Reports she plans on establishing with Dr. Hernandez. Follow-up with Dr. Hernandez as scheduled. 3. Chronic normochromic normocytic anemia- stable. 4. Alcoholic cirrhosis-stable. 5. Chronic COPD-no acute exacerbation. 6. Hypothyroidism-continue Synthroid regimen. 7. GERD-continue PPI. 8. Chronic lung mass-continue outpatient follow-up. Follows with Dr. Gonzalez, pulmonary medicine. 9. Chronic diastolic CHF-Echocardiogram shows an EF of 65%, stage II diastolic dysfunction, RVSP estimated to be 41 mmHg. 10. Tobacco dependence-encouraged smoking cessation. Current half pack per day smoker. Declines nicotine replacement patch. 11. Moderate to severe protein calorie malnutrition General: Alert, Oriented x3, Cooperative, - HEENT: Atraumatic, PERRLA, EOMI, Normocephalic Oral: Dry Mucosa Neck: Supple, No JVD, Negative Carotid Bruits Lungs: Clear to auscultation, Diminished Cardiovascular: Regular rate, Regular Rhythm, Normal S1, Normal S2, No murmurs Abdomen: Bowel Sounds Present, Soft, Tender, - - Ascites Extremities: No clubbing, No cyanosis, No edema, Capillary Refill Less than 3 Seconds Skin: No rashes, No breakdown Musculoskeletal: No Tenderness to Palpation of Joints or Extremities Neurological: Cranial nerves II-XII grossly intact, Neuro grossly intact Psych/Mental Status: Normal Affect, Appropriate Patient seen and examined prior to discharge. Physical assessment as noted above. Patient is stable for discharge with follow up recommendations as noted above. This patient was seen by YEMI Bueno under the supervision of Dr. Velasquez. - Physical Exam Vital Signs Temp Pulse Resp BP Pulse Ox 98.3 F 90 16 102/68 99 07/06/18 09:52 07/06/18 11:00 07/06/18 09:52 07/06/18 09:52 07/06/18 09:52 Oxygen Flow Rate (L/min) 2 Oxygen Delivery Method [2] Room Air Oxygen Delivery Method [1 ( Room Air Initial Baseline)] Oxygen Delivery Method Room Air Weight: 113 lb 1.554 oz Body Mass Index (BMI) 22.1 Intake and Output for Last 24 Hours 07/04/18 07/05/18 07/06/18 23:59 23:59 23:59 Intake Total 1149 / 1149 2877 / 2877 1431 / 1431 Output Total 5320 / 5320 Balance 1149 / 1149 -2443 / -2443 1431 / 1431 Microbiology Past 72 Hours 07/05/18 13:20 Gram Stain - Final Fluid - Paracentesis (Abd) Body Fluid Culture - Preliminary No growth-Final to follow 07/04/18 15:30 Urine Culture - Final Urine, Clean Catch Mixed Gram Pos & Gram Neg Org Laboratory Tests Past 24 Hrs 07/04/18 07/04/18 07/05/18 13:20 13:20 13:20 Fluid Source OTHER Fluid Color YELLOW Fluid Appearance SL CLDY Fluid WBC 2.711 Fluid RBC 153 Fluid Tot Cell Count 2.769 H Fld Polynuclear WBCs # 2.194 Fld Polynuclear WBCs % 80.9 Fluid Mononuclear WBCs 0.517 Fld Mononuclear WBCs % 19.1 Fluid Neutrophils 92 Fluid Lymphocytes 4 Fluid Monocytes 4 Fl Pathologist Comment Reviewed Fluid Glucose 113 H Fluid Total Protein 1.7 Fluid LDH 77 Fluid Comment 2 Not Reportable Discharge Diet: Low fat/ Low Cholesterol Discharge Activity: Return to Normal Activity Call your doctor if you observe: Fever of 101 or Higher, Inability to urinate, Shortness of breath, Dizziness, Fainting spells Home Medications: Medications to take at Discharge pantoprazole 40 mg tablet,delayed release 40 mg PO DAILY 02/28/18 Levothyroxine [Synthroid] 25 mcg PO DAILY 05/31/18 Albuterol Inhaler [Ventolin Hfa] 2 puff INHALATION BID 07/04/18 Ascorbic Acid [Vitamin C] 1,000 mg PO TIDCM 07/04/18 Ciprofloxacin [Cipro] 250 mg PO DAILY #30 tablet 07/06/18 Ciprofloxacin [Cipro] 500 mg PO BID #10 tablet 07/06/18 Spironolactone [Aldactone] 12.5 mg PO DAILY #30 tablet 07/06/18 hydrOXYzine tablet [Atarax tablet] 10 mg PO TID PRN PRN #30 tablet 07/06/18 Following Prescrptions Were Given to Patient: Ciprofloxacin [Cipro] 250 mg PO DAILY #30 tablet hydrOXYzine tablet [Atarax tablet] 10 mg PO TID PRN PRN #30 tablet PRN Reason: Itching Spironolactone [Aldactone] 12.5 mg PO DAILY #30 tablet Ciprofloxacin [Cipro] 500 mg PO BID #10 tablet Other Amb Orders: Renal Profile Time Frame: 2 Weeks, Location: Laboratory Primary Care Physician: Paulette Garza NP-C [Primary Care Provider] - Please Follow Up With: Trell Plaza NP-C - Dr. Berry office When: 07/12/18 Please Follow Up With: Alberto Aguirre MD When: 3 Weeks Please Follow Up With: Tonja Hernandez DO When: 07/13/18 Disposition: Home Minutes spent on discharge:: 35 Patient Condition:: Stable Medical Necessity - Tobacco Use Smoking Status: Current every day smoker Tobacco Use: Cigarettes Meaningful Use Info Meaningful Use Diagnoses (Choose all that apply): None applicable
--- NOTE | 2018-07-06 14:37 | PCM.HP.ID ---
Problem List (1) Spontaneous bacterial peritonitis Status: Acute Reason for Consult: sbp Consulted by: Dr. eVlasquez History of Present Illness: The patient is a 58 year old F with etoh cirrhosis, complicated by ascites. Admitted in May with abd pain and distension, fluid neg for SBP at that time. Presented with severe diffuse stabbing abd pain associated with n/v, present for several days. No fever or chills. Admitted here, given zosyn x1, then ceftriaxone. Tap done 07/05, feeling better, but abd has filled back up. Full ROS performed and neg except as noted above. - Medical History Past Medical History (Chronic Problems): Chronic Problems (Last Reviewed 05/04/18 @ 13:46 by YEMI Caldwell) Anemia (Chronic) Renal failure (Chronic) Alcoholic cirrhosis of liver (Chronic) Tobacco abuse (Chronic) Stage 1 mild COPD by GOLD classification (Chronic) Lung mass (Chronic) Allergies/Adverse Reactions: Allergies No Known Allergies Allergy (Verified 07/04/18 13:16) Home Medications: Ambulatory Orders Medication Instructions Recorded pantoprazole 40 mg tablet,delayed 40 mg PO DAILY 02/28/18 release Levothyroxine [Synthroid] 25 mcg PO DAILY 05/31/18 Albuterol Inhaler [Ventolin Hfa] 2 puff INHALATION BID 07/04/18 Ascorbic Acid [Vitamin C] 1,000 mg PO TIDCM 07/04/18 Ciprofloxacin [Cipro] 250 mg PO BID 30 Days #34 tablet 07/06/18 Spironolactone [Aldactone] 12.5 mg PO DAILY #30 tablet 07/06/18 hydrOXYzine tablet [Atarax tablet] 10 mg PO TID PRN PRN #30 tablet 07/06/18 - Social History SMOKING STATUS:: Current every day smoker Vital Signs Temp Pulse Resp BP Pulse Ox 98.3 F 90 16 102/68 99 07/06/18 09:52 07/06/18 11:00 07/06/18 09:52 07/06/18 09:52 07/06/18 09:52 Oxygen Flow Rate (L/min) 2 Oxygen Delivery Method [2] Room Air Oxygen Delivery Method [1 ( Room Air Initial Baseline)] Oxygen Delivery Method Room Air Weight: 51.3 kg Body Mass Index (BMI) 22.1 Microbiology Past 72 Hours 07/05/18 13:20 Gram Stain - Final Fluid - Paracentesis (Abd) Body Fluid Culture - Preliminary No growth-Final to follow 07/04/18 15:30 Urine Culture - Final Urine, Clean Catch Mixed Gram Pos & Gram Neg Org Laboratory Tests Past 24 Hrs 07/04/18 07/05/18 13:20 13:20 Fluid Source OTHER Fluid Color YELLOW Fluid Appearance SL CLDY Fluid RBC 153 Fluid Neutrophils 92 Fluid Lymphocytes 4 Fluid Monocytes 4 Fl Pathologist Comment Reviewed Fluid Total Protein 1.7 Fluid Comment 2 Not Reportable - Other Studies Radiology: [] Other Studies: [] reviewed Route of nutrition/ use of supplements: [] Nutritional Intake: [] IV Site: [] [place] Catheter: [] - Physical Exam General: Alert, Oriented x3, Cooperative, No apparent distress HEENT: Atraumatic, PERRLA, EOMI, Normocephalic Neck: Supple, No Nodes Lungs: Clear to auscultation, Normal air movement Cardiovascular: Regular rate, Regular Rhythm Abdomen: Soft, Non Tender, Distended Extremities: No edema Skin: No rashes IV Site: Peripheral, without edema Musculoskeletal: No Tenderness to Palpation of Joints or Extremities Neurological: Cranial nerves II-XII grossly intact - Assessment/Plan Antibiotics: [] Assessment/Plan: [] etoh cirrhosis with SBP - cx neg so far. PMNs of 2194. On ceftriaxone, feeling much better. Ok for d/c home on po cipro 250mg bid, then go to once daily for secondary prophylaxis. Thank you, will follow, d/w Dr. Velasquez.
[2018-07-06 15:52] LABS: Urine Sodium 5 mmol/L (Not Establ.)
--- NOTE | 2018-07-07 15:39 | CASEMGMT ---
RN CM DC PHONE CALL DC DATE:07/06/18 DC DISPOSITION: Home LACE/STRATA:03/19 Intro role of CM to patient via phone. Pt states she is feeling better, no questions re: dc instructions, medications or f/u. Pt answers short, not forthcoming so call shortened as pt did not seem to wish to speak in further detail. Anthony TINEON RN ACM
== END 2018-07-06 16:35 | disposition home or self-care (01) | DRG 871 ==
LOC: ED 14:46 → PCU 15:47
PROVIDERS: Nurse Practitioner Family; Admitting Provider Family Medicine; Emergency Provider Emergency Medicine; Family Provider Nurse Practitioner Family; PCP Nurse Practitioner Family; Visit Provider Internal Medicine
DX: A41.9 Sepsis, unspecified organism (principal); K65.2 Spontaneous bacterial peritonitis; N18.4 Chronic kidney disease, stage 4 (severe); I50.32 Chronic diastolic (congestive) heart failure; E44.0 Moderate protein-calorie malnutrition; K70.31 Alcoholic cirrhosis of liver with ascites; K72.10 Chronic hepatic failure without coma; E03.9 Hypothyroidism, unspecified; K21.9 Gastro-esophageal reflux disease without esophagitis; J44.9 Chronic obstructive pulmonary disease, unspecified; F17.210 Nicotine dependence, cigarettes, uncomplicated; D64.9 Anemia, unspecified; R91.8 Other nonspecific abnormal finding of lung field; R79.1 Abnormal coagulation profile; Z68.22 Body mass index [BMI] 22.0-22.9, adult
CPT/HCPCS: 36415; 49083; 71045; 80048; 80053; 81001; 82570; 82945; 83540; 83550; 83605; 83615; 84157; 84300; 85025; 85610; 85730; 86900; 87040; 87070; 87075; 87086; 87088; 87205; 88108; 88305; 88313; 89050; 97802; 99283; 99406; J7030; J7040; P9017; A4216; J0696; J2405

== ENCOUNTER → 2018-07-22 12:47 | Outpatient (CLI) | payer OTHER, SELFPAY ==
[2018-07-21 13:21] VITALS: BMI 23.8
[2018-07-21 15:52] LABS: International Normalized Ratio 1.5; Prothrombin Time (Protime)PT. 17.8 SECONDS (11.7-14.9)
[2018-07-21 15:53] LABS: Partial Thromboplast Time 34.2 Seconds (24.1-36.2)
--- NOTE | 2018-07-22 | FLU_PTH ---
PATIENT: KEYLA MATTHEWS LOC: U#:[id number] AGE/SX: 64/F ROOM: RE07/22/[address]: Dr. Alberto Aguirre MD : 1960 BED: DIS: SPEC #: [id number] RECD: 07/22/18 14:34 STATUS: YAZAN CIARRA #: [id number] KENNA: 07/22/18 00:[address]: Alberto Aguirre DEPT: CYTOLOGY RECD BY: John Bedoya ENTERED: 07/25/18 09:23 SP TYPE: Fluid OTHR DR: Paulette Garza, GREY INSPECTOR-C Tissues: PARACENTESIS FLUID Procedures: Special Stain Group II Surgery Specimen Level IV Cytospin Fluid HEADER OPERATION: Ultrasound guided right paracentesis PRE-OP DIAGNOSIS: Cirrhosis of liver TISSUE SUBMITTED: Paracentesis fluid for cytology DIAGNOSIS CYTOLOGY Paracentesis fluid for cytology (cytospin and cell block): Negative for malignant cells. SJ:amauri 07/26/18 COMMENT Please make reference to previous cytology specimens (C19-18, C19-24 and C19-78), paracentesis fluid for cytology with diagnosis of negative for malignant cells. CYTOLOGY STUDY Slides are reviewed. CYTOLOGY GROSS Received is 100 ml of hazy yellow fluid labeled with the patient's name and and designated per the requisition as paracentesis. Submitted for cytology preparation including cell block. /CC:cc 07/25/18 TC:5 CPT: 43844, 00903
--- NOTE | 2018-07-22 12:49 | US_ITS ---
PROCEDURE: Ultrasound guided paracentesis. DATE OF EXAMINATION: July 22, 2018.. INDICATION: Female, 58 years old. Ascites. PHYSICIAN: Hernandez Eli M.D. TECHNIQUE: The risks, benefits, and alternatives to the procedure were explained to the patient. The specific risks of bleeding, infection, and damage to bowel were detailed and accepted. Witnessed informed consent was obtained. The abdomen was ultrasonographically surveyed. An appropriate pocket of fluid was identified at the right lower quadrant. The skin were cleaned and prepped in the usual sterile fashion. Using ultrasound guidance, the peritoneal cavity was accessed with a 5-Indonesian paracentesis needle/catheter system. The trocar was removed. A total of 3070 ml of brad-colored fluid were removed from the peritoneal cavity. A 120 mL sample was sent to the laboratory. The catheter was removed and a sterile dressing was applied. The procedure was well tolerated. US/Paracentesis with US IMPRESSION: Ultrasound guided paracentesis. Electronically Signed: Hernandez Eli, at 15:29 EST , Service support ,
[2018-07-22 14:25] VITALS: BP 110/74; BP 89/61; BP 91/56; PULSE 85; PULSE 86; PULSE 97; RESP 16; O2SAT 100
[2018-07-22 14:55] LABS: Body Fluid Mononuclear WBC # 0.119 10^3/uL; Body Fluid Mononuclear WBC % 91.5 %; Body Fluid Polynuclear WBC # 0.011 10^3/uL; Body Fluid Polynuclear WBC % 8.5 %
[2018-07-22 15:07] LABS: Appearance/Body Fluid SL CLDY; Auto B Fluid Analyzer BKGD Ct COUNTS W/IN LIMITS (W/IN LIMITS); Color/Body Fluid LT YEL; Source- Body Fluid OTHER
[2018-07-22 15:11] LABS: Red Cell Count/Body Fluid 5 /mm3
[2018-07-22 15:25] LABS: Lymphocytes 51 %; Mesothelial Cells 25 %; Monocytes 16 %; Neutrophil (Segs) 4 %; Other Cell Type/BF 4 %
[2018-07-22 15:26] LABS: Body Fluid QC Type(s) BF1Q
[2018-07-26 13:07] LABS: Pathologist Comment/Body Fluid Reviewed
== END ==
PROVIDERS: Family Provider Nurse Practitioner Family; PCP Nurse Practitioner Family; Referring Provider Internal Medicine Gastroenterology; Visit Provider Internal Medicine Gastroenterology
DX: R18.8 Other ascites (principal); K74.60 Unspecified cirrhosis of liver
CPT/HCPCS: 36415; 49083; 85610; 85730; 87070; 87075; 87205; 88108; 88305; 88313; 89050

== ENCOUNTER → 2018-07-29 10:27 | Outpatient (CLI) | payer OTHER, SELFPAY ==
[2018-07-21 13:21] VITALS: BMI 23.8
--- NOTE | 2018-07-29 | FLU_PTH ---
PATIENT: KEYLA MATTHEWS LOC: [facility]#:[id number] AGE/SX: 64/F ROOM: RE07/29/[address]: Dr. Alberto Aguirre MD : 1960 BED: DIS: SPEC #: [id number] RECD: 07/29/18 12:31 STATUS: YAZAN CIARRA #: [id number] KENNA: 07/29/18 00:[address]: Alberto Aguirre DEPT: CYTOLOGY RECD BY: Gerardo Bruce ENTERED: 07/29/18 13:26 SP TYPE: Fluid OTHR DR: Paulette Garza, CYLINDER DIE MACHINE OPERATOR-C [facility] Tissues: PARACENTESIS FLUID Procedures: Special Stain Group II Surgery Specimen Level IV Cytospin Fluid HEADER OPERATION: Ultrasound-guided left paracentesis PRE-OP DIAGNOSIS: Cirrhosis TISSUE SUBMITTED: Paracentesis fluid for cytology DIAGNOSIS CYTOLOGY Paracentesis fluid for cytology (cytospin and cell block): Negative for malignant cells. AM:amauri 08/01/18 CYTOLOGY STUDY Slides are reviewed. CYTOLOGY GROSS Received is 90 ml of yellow cloudy fluid labeled with the patient's name and and designated per the requisition as paracentesis. Submitted for cytology preparation including cell block. / 07/29/18 TC:5 CPT: 06687, 59409
--- NOTE | 2018-07-29 10:30 | US_ITS ---
PROCEDURE: ULTRASOUND GUIDED PARACENTESIS CLINICAL HISTORY: Female, 58 years old. ASCITES CONSENT: The risks, benefits and alternatives to the procedure were explained to the patient, and the patient agreed to the procedure and signed the consent. SEDATION: Local Anesthesia STERILE BARRIER TECHNIQUE: The following sterile barrier precautions were used during the procedure: hand hygiene; use of 2% chlorhexidine aseptic; use of a cap, mask, sterile gown, sterile gloves, sterile full body drape, and a large sterile sheet. PROCEDURE/TECHNIQUE: The risks, benefits, and alternatives to the procedure were explained to patient, and the patient agreed to the procedure and signed a consent form for the procedure. TECHNIQUE: Under the ultrasound guidance using sterile technique and after infiltration of the skin and subcutaneous soft tissues with 10 mL of lidocaine 1% a 5 Lao drainage catheter is introduced in the lower part of the abdomen. 5600 mL of fluid were removed sample sent to lab for evaluation. The patient tolerated the procedure there was no immediate complication. FINDINGS: FLUID PRE-PROCEDURE There is posterior enhancement. The findings appear anechoic. There is no loculation. FLUID POST-PROCEDURE Amount of fluid drained: 5000 ml. US/Paracentesis with US IMPRESSION: Successful ultrasound-guided paracentesis. Electronically Signed: Boo Gonzalez, at 13:23 EDT Tel , Service support ,
[2018-07-29 11:58] VITALS: BP 100/67; BP 96/70; BP 98/69; PULSE 82; PULSE 84; PULSE 97; RESP 16; RESP 18; O2SAT 100; O2SAT 97
[2018-07-29] MEDS: Albumin Human 25% (100 mL) 25 GM/100 ML BAG IV ×2 (12:11→13:40)
[2018-07-29 12:51] LABS: Acid Fast Stain SEE PATHOLOGY REPORT; Cytology, Body Fluid / CSF SEE PATHOLOGY REPORT
[2018-07-29 13:14] LABS: Body Fluid Mononuclear WBC # 0.068 10^3/uL; Body Fluid Mononuclear WBC % 87.2 %; Body Fluid Polynuclear WBC % 12.8 %; Body Fluid Total Cells Counted 0.082 10^3/ul (0.000-0.000); White Blood Count/Body Fluid 0.078 10^3/uL
[2018-07-29 13:16] LABS: Appearance/Body Fluid CLEAR; Auto B Fluid Analyzer BKGD Ct COUNTS W/IN LIMITS (W/IN LIMITS); Color/Body Fluid LT YEL; Source- Body Fluid OTHER
[2018-07-29 13:17] LABS: Body Fluid QC Type(s) BF1Q
[2018-07-29 13:38] LABS: Protein, Body Fluid 1.3 g/dL (Not Establ.)
[2018-07-29 14:04] LABS: Lymphocytes 56 %; Macrophages 11 %; Mesothelial Cells 1 %; Monocytes 32 %
[2018-07-31 09:15] LABS: Amylase Body Fluid 40 U/L (.)
[2018-08-01 11:49] LABS: Pathologist Comment/Body Fluid Reviewed
== END ==
LOC: US 10:27 → MEDOUTP 11:47
PROVIDERS: Referring Provider Internal Medicine Gastroenterology; Visit Provider Internal Medicine Gastroenterology
DX: K74.60 Unspecified cirrhosis of liver (principal)
CPT/HCPCS: 96365; 96366 ×3; 49083; 82150; 84157; 87070; 87075; 87205; 88108; 88305; 88313; 89050; P9047

== ENCOUNTER → 2018-08-05 08:05 | Outpatient (CLI) | payer OTHER, SELFPAY ==
[2018-07-21 13:21] VITALS: BMI 23.8
--- NOTE | 2018-08-05 08:07 | US_ITS ---
PROCEDURE: ULTRASOUND GUIDED PARACENTESIS CLINICAL HISTORY: Female, 58 years old. ASCITES CONSENT: The risks, benefits and alternatives to the procedure were explained to the patient, and the patient agreed to the procedure and signed the consent. SEDATION: Local Anesthesia STERILE BARRIER TECHNIQUE: The following sterile barrier precautions were used during the procedure: hand hygiene; use of 2% chlorhexidine aseptic; use of a cap, mask, sterile gown, sterile gloves, sterile full body drape, and a large sterile sheet. PROCEDURE/TECHNIQUE: The risks, benefits, and alternatives to the procedure were explained to patient, and the patient agreed to the procedure and signed a consent form for the procedure. TECHNIQUE: Under the ultrasound guidance using sterile technique and after infiltration of the skin and subcutaneous soft tissues with 10 mL of lidocaine 1% a 5 Slovak drainage catheter is introduced in the lower part of the abdomen. 4900 mL of fluid were removed sample sent to lab for evaluation. The patient tolerated the procedure there was no immediate complication. FINDINGS: FLUID PRE-PROCEDURE There is posterior enhancement. The findings appear anechoic. There is no loculation. FLUID POST-PROCEDURE Amount of fluid drained: 4900 ml. US/Paracentesis with US IMPRESSION: Successful ultrasound-guided paracentesis. Electronically Signed: Boo Gonzalez, at 8:20 EDT Tel , Service support ,
[2018-08-05 08:57] VITALS: BP 93/57; BP 96/66; BP 97/65; PULSE 73; PULSE 76; RESP 16; O2SAT 100; O2SAT 99
[2018-08-05 09:58] VITALS: BP 96/56; PULSE 72; RESP 18; TEMP 36.5; O2SAT 100; BMI 20.5
[2018-08-05] MEDS: Albumin Human 25% (100 mL) 25 GM/100 ML BAG IV ×2 (10:04→11:37)
== END ==
PROVIDERS: Referring Provider Internal Medicine Gastroenterology; Visit Provider Internal Medicine Gastroenterology
DX: K74.60 Unspecified cirrhosis of liver (principal)
CPT/HCPCS: 96365; 96366 ×2; 49083; P9047; A4216

== ENCOUNTER → 2018-08-12 08:00 | Outpatient (CLI) | payer OTHER, SELFPAY ==
[2018-07-21 13:21] VITALS: BMI 23.8
[2018-08-05 09:58] VITALS: BMI 20.5
--- NOTE | 2018-08-12 08:01 | US_ITS ---
PROCEDURE: Ultrasound guided paracentesis. DATE OF EXAMINATION: August 12, 2018. INDICATION: Female, 58 years old. Ascites. PHYSICIAN: Hernandez Eli M.D. TECHNIQUE: The risks, benefits, and alternatives to the procedure were explained to the patient. The specific risks of bleeding, infection, and damage to bowel were detailed and accepted. Witnessed informed consent was obtained. The abdomen was ultrasonographically surveyed. An appropriate pocket of fluid was identified at the left lower quadrant. The skin were cleaned and prepped in the usual sterile fashion. Using ultrasound guidance, the peritoneal cavity was accessed with a 5-Luxembourgish paracentesis needle/catheter system. The trocar was removed. A total of 4850 ml of brad-colored fluid were removed from the peritoneal cavity. The catheter was removed and a sterile dressing was applied. The procedure was well tolerated. US/Paracentesis with US IMPRESSION: Ultrasound guided paracentesis. Electronically Signed: Hrenandez Eli, at 10:58 EDT , Service support ,
[2018-08-12 09:22] VITALS: BP 97/63; PULSE 86; RESP 16; TEMP 36.6; O2SAT 99; BMI 19.2
[2018-08-12] MEDS: Albumin Human 25% (100 mL) 25 GM/100 ML BAG IV ×2 (09:33→11:09)
[2018-08-12 09:36] VITALS: BP 110/66; BP 117/68; BP 127/74; PULSE 80; PULSE 85; PULSE 89; RESP 16; RESP 18; O2SAT 100; O2SAT 98; O2SAT 99
== END ==
PROVIDERS: Family Provider Nurse Practitioner Family; PCP Nurse Practitioner Family; Referring Provider Internal Medicine Gastroenterology; Visit Provider Internal Medicine Gastroenterology
DX: K74.60 Unspecified cirrhosis of liver (principal)
CPT/HCPCS: 96365; 96366 ×3; 49083; P9047

== ENCOUNTER → 2018-08-17 10:37 | Outpatient (CLI) | payer OTHER, SELFPAY ==
[2018-08-05 09:58] VITALS: BMI 20.5
[2018-08-12 09:22] VITALS: BMI 19.2
--- NOTE | 2018-08-17 10:40 | US_ITS ---
PROCEDURE: Ultrasound guided paracentesis. DATE OF EXAMINATION: August 17, 2018. INDICATION: Female, 58 years old. Ascites. PHYSICIAN: Hernandez Eli M.D. TECHNIQUE: The risks, benefits, and alternatives to the procedure were explained to the patient. The specific risks of bleeding, infection, and damage to bowel were detailed and accepted. Witnessed informed consent was obtained. The abdomen was ultrasonographically surveyed. An appropriate pocket of fluid was identified at the right lower quadrant. The skin were cleaned and prepped in the usual sterile fashion. Using ultrasound guidance, the peritoneal cavity was accessed with a 5-St Helenian paracentesis needle/catheter system. The trocar was removed. A total of 4500 ml of brad-colored fluid were removed from the peritoneal cavity. The catheter was removed and a sterile dressing was applied. The procedure was well tolerated. US/Paracentesis with US IMPRESSION: Ultrasound guided paracentesis. Electronically Signed: Hernandez Eli, at 12:35 EDT , Service support ,
[2018-08-17 11:44] VITALS: BMI 19.7
[2018-08-17 11:45] VITALS: BP 107/59; BP 107/73; BP 112/56; PULSE 75; PULSE 77; PULSE 78; RESP 16; RESP 18; O2SAT 100; O2SAT 98; O2SAT 99
[2018-08-17] MEDS: Albumin Human 25% (100 mL) 25 GM/100 ML BAG IV ×2 (11:55→13:31)
== END ==
PROVIDERS: Referring Provider Internal Medicine Gastroenterology; Visit Provider Internal Medicine Gastroenterology
DX: K74.60 Unspecified cirrhosis of liver (principal)
CPT/HCPCS: 96365; 96366 ×3; 49083; P9047; A4216

== ENCOUNTER → 2018-08-25 12:55 | Outpatient (CLI) | payer OTHER, SELFPAY ==
[2018-08-17 11:44] VITALS: BMI 19.7
[2018-08-25 13:31] LABS: Absolute Lymphocyte Count 3.15 X10^3/ul (0.83-4.51); Absolute Neutrophil Count 3.7 X10^3/uL (2.0-7.7); Basophil# 0.05 X10^3/uL; Basophil% 0.6 % (0-1); Eosinophil# 1.02 X10^3/uL; Eosinophils% 12.1 % (0-5); Hematocrit 27.3 % (37-47); Lymphocyte # 3.15 X10^3/ul (4.0); Lymphocyte % 37.4 % (19-41); Mean Corpuscular Hgb 29.8 pg (27.0-32.0); Mean Corpuscular Volume 90.4 fL (81-99); Mean Platelet Vol. 9.4 fl (6.2-12.0); Monocyte# 0.51 X10^3/uL; Neutrophil # 3.69 X10^3/uL (2.7-7.7); Neutrophil % 43.8 % (47-70); Platelet Count 201 K/mm3 (150-450); RBC Distribution Width CV 16.2 % (11.6-14.6); RBC Distribution Width SD 52.9 fl (35.1-43.9); Red Blood Count 3.02 M/mm3 (4.2-5.4); White Blood Count 8.4 K/mm3 (4.4-11.0)
[2018-08-25 13:32] LABS: POSITIVE COUNT NO; POSITIVE DIFFERENTIAL NO; POSITIVE MORPHOLOGY NO
[2018-08-25 13:40] LABS: International Normalized Ratio 1.4; Prothrombin Time (Protime)PT. 17.3 SECONDS (11.7-14.9)
[2018-08-25 14:00] LABS: BUN 46 mg/dL (7-18); BUN/Creat Ratio 20.5 RATIO (10-20); Calcium,Total 8.3 mg/dL (8.5-10.1); Chloride 106 mmol/L (98-107); Creatinine, Serum 2.24 mg/dL (0.55-1.02); EST Glomerular Filtration Rate 24 mL/min (>60); Est Glom Filt Rate - Afr Amer 29 mL/min (>60); Glucose 92 mg/dL (74-106); Phosphorus 4.5 mg/dL (2.5-4.9); Potassium 3.8 mmol/L (3.5-5.1); Sodium Level 137 mmol/L (136-145)
[2018-08-25 14:13] LABS: AST(SGOT) 44 U/L (15-37); Alanine Aminotransfer ALT/SGPT 30 U/L (13-56); Alkaline Phosphatase 107 U/L (45-117); Bilirubin, Direct 0.29 mg/dL (0.00-0.30); Ferritin 782 ng/mL (8-252); Globulin 4.1 g/dL (2.2-4.2); Protein, Total 7.1 g/dL (6.4-8.2)
[2018-08-27 15:35] LABS: AFP, Tumor Marker 3.5 ng/mL (0.0-8.3); CMV Antibody IgG < 0.60 U/mL (0.00-0.59); EBV Acute VCA IgM < 36.0 U/mL (0.0-35.9); EBV Early Antigen IgG 36.5 U/mL (0.0-8.9); EBV-VCA IgG > 600.0 U/mL (0.0-17.9)
== END ==
PROVIDERS: Referring Provider Nurse Practitioner Family; Visit Provider Nurse Practitioner Family
DX: K70.31 Alcoholic cirrhosis of liver with ascites (principal); R10.9 Unspecified abdominal pain; R11.2 Nausea with vomiting, unspecified
CPT/HCPCS: 36415; 80069; 80076; 82105; 82140; 82390; 82728; 85025; 85610; 86644; 86663; 86664; 86665

== ENCOUNTER → 2018-08-26 10:05 | Outpatient (CLI) | payer OTHER, SELFPAY ==
[2018-08-05 09:58] VITALS: BMI 20.5
[2018-08-17 11:44] VITALS: BMI 19.7
--- NOTE | 2018-08-26 10:08 | US_ITS ---
PROCEDURE: Ultrasound guided paracentesis. DATE OF EXAMINATION: August 26, 2018. INDICATION: Female, 58 years old. Ascites. PHYSICIAN: Hernandez Eli M.D. TECHNIQUE: The risks, benefits, and alternatives to the procedure were explained to the patient. The specific risks of bleeding, infection, and damage to bowel were detailed and accepted. Witnessed informed consent was obtained. The abdomen was ultrasonographically surveyed. An appropriate pocket of fluid was identified at the right lower quadrant. The skin were cleaned and prepped in the usual sterile fashion. Using ultrasound guidance, the peritoneal cavity was accessed with a 5-Korean paracentesis needle/catheter system. The trocar was removed. A total of 5400 ml of brad-colored fluid were removed from the peritoneal cavity. The catheter was removed and a sterile dressing was applied. The procedure was well tolerated. US/Paracentesis with US IMPRESSION: Ultrasound guided paracentesis. Electronically Signed: Hernandez Eli, at 12:57 EDT , Service support ,
[2018-08-26 10:30] VITALS: BP 105/65; BP 108/73; BP 98/64; PULSE 75; PULSE 82; PULSE 83; RESP 16; O2SAT 100; O2SAT 99
[2018-08-26 11:36] VITALS: BP 99/51; PULSE 69; RESP 16; TEMP 36.6; O2SAT 100; BMI 20.7
[2018-08-26] MEDS: Albumin Human 25% (100 mL) 25 GM/100 ML BAG IV ×2 (11:38→13:06)
== END ==
PROVIDERS: Referring Provider Internal Medicine Gastroenterology; Visit Provider Internal Medicine Gastroenterology
DX: K74.60 Unspecified cirrhosis of liver (principal)
CPT/HCPCS: 96365; 96366 ×3; 49083; P9047

== ENCOUNTER → 2018-08-30 15:19 | Outpatient (CLI) | payer OTHER, SELFPAY ==
[2018-08-26 11:36] VITALS: BMI 20.7
[2018-08-30 16:17] LABS: 24 Hour Urine Protein 70.4 mg/24HR (<150 MG/24HR); 24HR. UA Prot. Total Volume 275 mL; Urine Protein (24 Hour) 25.6 mg/dL (<11.9)
[2018-08-30 18:16] LABS: Albumin, Serum 2.7 g/dL (3.2-5.0); BUN 42 mg/dL (7-18); BUN/Creat Ratio 20.1 RATIO (10-20); Calcium,Total 7.6 mg/dL (8.5-10.1); Chloride 108 mmol/L (98-107); Creatinine, Serum 2.09 mg/dL (0.55-1.02); EST Glomerular Filtration Rate 26 mL/min (>60); Est Glom Filt Rate - Afr Amer 31 mL/min (>60); Glucose 118 mg/dL (74-106); Phosphorus 3.9 mg/dL (2.5-4.9); Potassium 3.3 mmol/L (3.5-5.1); Sodium Level 138 mmol/L (136-145)
[2018-08-30 18:21] LABS: PTHIN 201.3 pg/mL (18.4-80.1)
[2018-08-30 18:40] LABS: Creat.Clear Total Volume 275 mL; Creatinine Clearance 18 ml/min (100-200); Creatinine Serum Creat 2.1 mg/dL (0.6-1.0); EST Glomerular Filtration Rate 26 mL/min (>60); Est Glom Filt Rate - Afr Amer 31 mL/min (>60)
[2018-08-30 18:48] LABS: Hematocrit 25.5 % (37-47); Hemoglobin 8.3 g/dl (12.0-15.0); Mean Corp Hgb Conc 32.5 g/gl (32-36); Mean Corpuscular Hgb 29.6 pg (27.0-32.0); Mean Corpuscular Volume 91.1 fL (81-99); Mean Platelet Vol. 10.5 fl (6.2-12.0); Platelet Count 203 K/mm3 (150-450); RBC Distribution Width SD 51.4 fl (35.1-43.9); White Blood Count 8.2 K/mm3 (4.4-11.0)
[2018-08-30 19:34] LABS: Scan Indicated on CBC? Y/N NO
== END ==
PROVIDERS: Referring Provider Internal Medicine Nephrology; Visit Provider Internal Medicine Nephrology
DX: N18.4 Chronic kidney disease, stage 4 (severe) (principal)
CPT/HCPCS: 36415; 80069; 82575; 83970; 84156; 85027

== ENCOUNTER → 2018-09-02 10:37 | Outpatient (CLI) | payer OTHER, SELFPAY ==
[2018-08-17 11:44] VITALS: BMI 19.7
[2018-08-26 11:36] VITALS: BMI 20.7
--- NOTE | 2018-09-02 10:40 | US_ITS ---
PROCEDURE: Ultrasound guided paracentesis. DATE OF EXAMINATION: September 02, 2018.. INDICATION: Female, 58 years old. Ascites. PHYSICIAN: Hernandez Eli M.D. TECHNIQUE: The risks, benefits, and alternatives to the procedure were explained to the patient. The specific risks of bleeding, infection, and damage to bowel were detailed and accepted. Witnessed informed consent was obtained. The abdomen was ultrasonographically surveyed. An appropriate pocket of fluid was identified at the right lower quadrant. The skin were cleaned and prepped in the usual sterile fashion. Using ultrasound guidance, the peritoneal cavity was accessed with a 5-Sami paracentesis needle/catheter system. The trocar was removed. A total of 5000 ml of brad-colored fluid were removed from the peritoneal cavity. The catheter was removed and a sterile dressing was applied. The procedure was well tolerated. US/Paracentesis with US IMPRESSION: Ultrasound guided paracentesis. Electronically Signed: Hernandez Eli, at 13:50 EDT , Service support ,
[2018-09-02 11:15] VITALS: BP 86/59; BP 90/58; BP 94/60; PULSE 64; PULSE 69; PULSE 71; RESP 16; RESP 18; O2SAT 96; O2SAT 97
[2018-09-02] MEDS: Albumin Human 25% (100 mL) 25 GM/100 ML BAG IV ×2 (11:59→13:30)
[2018-09-02 12:02] VITALS: BP 86/54; PULSE 65; RESP 18; TEMP 36.8; O2SAT 100; BMI 20.5
== END ==
PROVIDERS: Referring Provider Internal Medicine Gastroenterology; Visit Provider Internal Medicine Gastroenterology
DX: K74.60 Unspecified cirrhosis of liver (principal)
CPT/HCPCS: 96365; 96366 ×2; 49083; P9047; A4216

== ENCOUNTER → 2018-09-09 10:07 | Outpatient (CLI) | payer OTHER, SELFPAY ==
[2018-08-17 11:44] VITALS: BMI 19.7
[2018-09-02 12:02] VITALS: BMI 20.5
--- NOTE | 2018-09-09 10:10 | US_ITS ---
PROCEDURE: ULTRASOUND GUIDED PARACENTESIS CLINICAL HISTORY: Female, 58 years old. Diffuse ascites CONSENT: Informed consent obtained Time-Out Called: Yes. Consent form signed: Yes. PT-PTT Levels Checked: Yes. SEDATION: Local with 2% Xylocaine TECHNIQUE: Ultrasound guided FINDINGS: FLUID PRE-PROCEDURE There is posterior enhancement. The findings appear anechoic. There is no loculation. After informed consent was obtained, appropriate site for large volume paracentesis was determined using ultrasound. A site was prepped and draped in a sterile manner and 2% Xylocaine was used as local anesthetic. Under sonographic guidance, a drainage catheter was advanced into the peritoneal cavity. Initially there was good return of straw-colored fluid but after approximately 2000 mL, there was bowel loop interference and no good drainage pocket was able to be located. A second site was then evaluated with ultrasound, prepped and draped in a sterile manner as well and again 2% Xylocaine was used as local anesthetic. A second drainage catheter was advanced into the peritoneal cavity and another 2950 mL of straw-colored fluid was obtained. Patient tolerated the procedure well with no immediate complications. FLUID POST-PROCEDURE Amount of fluid drained: 4950 ml. Residual image volume: Minimal US/Paracentesis with US IMPRESSION: Successful large volume ultrasound-guided paracentesis Electronically Signed: Amado Orozco MD at 8:17 EDT , Service support ,
[2018-09-09 12:00] VITALS: BP 103/69; BP 89/54; BP 91/58; BP 92/58; BP 95/57; PULSE 70; PULSE 71; PULSE 72; PULSE 73; RESP 16; O2SAT 100; O2SAT 97; O2SAT 98
[2018-09-09 12:15] VITALS: BP 116/56; PULSE 75; RESP 16; TEMP 36.6; O2SAT 100; BMI 20.5
[2018-09-09] MEDS: Albumin Human 25% (100 mL) 25 GM/100 ML BAG IV ×2 (13:00→14:21)
== END ==
PROVIDERS: Referring Provider Internal Medicine Gastroenterology; Visit Provider Internal Medicine Gastroenterology
DX: K74.60 Unspecified cirrhosis of liver (principal)
CPT/HCPCS: 96365; 96366 ×2; 49083; P9047; A4216

== ENCOUNTER → 2018-09-16 10:14 | Outpatient (CLI) | payer OTHER, SELFPAY ==
[2018-08-17 11:44] VITALS: BMI 19.7
[2018-09-09 12:15] VITALS: BMI 20.5
--- NOTE | 2018-09-16 10:17 | US_ITS ---
PROCEDURE: ULTRASOUND GUIDED PARACENTESIS CLINICAL HISTORY: Female, 58 years old. Ultrasound-guided, right lower quadrant paracentesis. CONSENT: The entire procedure, risks, benefits and alternatives (including doing nothing) were discussed with the patient preprocedure. Risks presented included (but were not limited to) infection/abscess, bleeding, pain, reaction to medications and potential damage to intra-abdominal/intrapelvic structures. All patient questions were answered satisfactorily. Written consent was obtained, witnessed and placed on the patient's chart. Time-Out Called: Yes. Consent form signed: Yes. TECHNIQUE: A short timeout was performed. Limited and directed four-quadrant sonographic evaluation of the abdomen was performed. A large quantity of uncomplicated ascites fluid was identified within the right lower quadrant. An intended percutaneous site was identified and marked. The anterolateral right lower quadrant abdomen soft tissues were then thoroughly prepped and draped in the usual sterile manner. Local anesthesia was obtained with approximately 1.0 cc of 1% lidocaine without epinephrine. Next, a 5 Italian coaxial, single-step type device was utilized to enter the soft tissues and the peritoneal lining. At this point the central sharp trocar was fixed and the catheter advanced into the fluid collection. Thereafter, approximately 5.1 L of yellow-colored ascites was collected. All devices were removed, the soft tissues were cleansed and a sterile occlusive dressing applied. US/Paracentesis with US IMPRESSION: Successful, ultrasound-guided paracentesis. COMPLICATION: The patient tolerated the procedure well. There was no evident immediate post procedure complication. Electronically Signed: Bertrand Patel MD at 13:15 EDT , Service support ,
[2018-09-16 11:40] VITALS: BP 100/68; BP 107/72; BP 99/60; PULSE 69; PULSE 70; PULSE 72; RESP 16; O2SAT 96; O2SAT 98; O2SAT 99
[2018-09-16] MEDS: Albumin Human 25% (100 mL) 25 GM/100 ML BAG IV ×2 (12:39→14:01)
[2018-09-16 12:44] VITALS: BP 126/73; PULSE 68; RESP 16; TEMP 36.6; O2SAT 97; BMI 20.5
== END ==
PROVIDERS: Referring Provider Internal Medicine Gastroenterology; Visit Provider Internal Medicine Gastroenterology
DX: K74.60 Unspecified cirrhosis of liver (principal)
CPT/HCPCS: 96365; 96366 ×2; 49083; P9047; A4216

== ENCOUNTER → 2018-09-20 15:59 | Outpatient (CLI) | payer OTHER, SELFPAY ==
[2018-09-16 12:44] VITALS: BMI 20.5
[2018-09-20 18:15] LABS: Ferritin 653 ng/mL (8-252); Iron 90 ug/dL (50-170); Iron Binding Capacity,Total 86 ug/dL (250-450)
== END ==
PROVIDERS: Visit Provider Internal Medicine Nephrology
DX: D64.9 Anemia, unspecified (principal)
CPT/HCPCS: 36415; 82728; 83540; 83550

== ENCOUNTER → 2018-09-21 08:45 | Outpatient (CLI) | payer OTHER, SELFPAY ==
[2018-09-09 12:15] VITALS: BMI 20.5
[2018-09-16 12:44] VITALS: BMI 20.5
--- NOTE | 2018-09-21 08:49 | US_ITS ---
PROCEDURE: Ultrasound guided paracentesis. DATE OF EXAMINATION: September 21, 2018. INDICATION: Female, 58 years old. Ascites. PHYSICIAN: Hernandez Eli M.D. TECHNIQUE: The risks, benefits, and alternatives to the procedure were explained to the patient. The specific risks of bleeding, infection, and damage to bowel were detailed and accepted. Witnessed informed consent was obtained. The abdomen was ultrasonographically surveyed. An appropriate pocket of fluid was identified at the right lower quadrant. The skin were cleaned and prepped in the usual sterile fashion. Using ultrasound guidance, the peritoneal cavity was accessed with a 5-Lao paracentesis needle/catheter system. The trocar was removed. A total of 4700 ml of brad-colored fluid were removed from the peritoneal cavity. The catheter was removed and a sterile dressing was applied. The procedure was well tolerated. US/Paracentesis with US IMPRESSION: Ultrasound guided paracentesis. Electronically Signed: Hernandez Eli, at 10:52 EDT , Service support ,
== END ==
PROVIDERS: Referring Provider Internal Medicine Gastroenterology; Visit Provider Internal Medicine Gastroenterology
DX: R18.8 Other ascites (principal)
CPT/HCPCS: 49083; A4216

== ENCOUNTER → 2018-09-21 09:56 | Outpatient (CLI) | payer OTHER, SELFPAY ==
[2018-09-16 12:44] VITALS: BMI 20.5
[2018-09-21 10:06] VITALS: BP 103/64; BP 97/64; PULSE 71; RESP 16; O2SAT 100; O2SAT 97
[2018-09-21 10:18] VITALS: BP 104/90; PULSE 72; RESP 18; TEMP 36.5; O2SAT 100; BMI 21.1
[2018-09-21] MEDS: Albumin Human 25% (100 mL) 25 GM/100 ML BAG IV ×2 (10:58→12:27)
== END ==
PROVIDERS: Visit Provider Internal Medicine Gastroenterology
DX: K74.60 Unspecified cirrhosis of liver (principal)
CPT/HCPCS: 96365; 96366 ×2; J7050; P9047; A4216

== ENCOUNTER → 2018-09-26 12:44 | Outpatient (CLI) | payer OTHER, SELFPAY ==
[2018-09-16 12:44] VITALS: BMI 20.5
[2018-09-21 10:18] VITALS: BMI 21.1
--- NOTE | 2018-09-26 12:46 | VDUE_ITS ---
Reason For Study: CKD 4 Right Arm Left Arm Right Cephalic Vein at the wrist measures Left Cephalic Vein at the wrist measures 0.18 x 0.20 cm. 0.11 x 0.13 cm. Right Cephalic Vein in the forearm measures Left Cephalic Vein in the forearm measures 0.18 x 0.19 cm. 0.13 x 0.15 cm. Right Cephalic Vein below antecub measures Left Cephalic Vein below antecub measures 0.18 x 0.18 cm. 0.09 x 0.09 cm. Right Cephalic Vein above antecub measures Left Cephalic Vein above antecub measures 0.20 x 0.26 cm. 0.08 x 0.11 cm. Right Cephalic Vein mid bicep measures 0.16 Left Cephalic Vein at mid bicep measures x 0.17 cm. 0.12 x 0.13 cm. Right Cephalic Vein at the shoulder measures Left Cephalic Vein at the shoulder measures 0.14 x 0.16 cm. 0.22 x 0.21 cm. Right Basilic Vein at the origin measures Basilic vein at origin measures 0.24 x 0.25 0.27 x 0.31 cm. cm. Right Basilic Vein mid bicep measures 0.25 x Basilic vein at bicep measures 0.27 x 0.25 0.28 cm. cm. Right Basilic Vein above antecub measures Basilic vein above antecub measures 0.23 x 0.20 x 0.25 cm. 0.27 cm. Right Brachial artery measures 0.28 x 0.31 Left Brachial artery measures 0.24 x 0.27 cm cm with a velocity of 72 cm/sec. with a velocity of 75.6 cm/sec. Right Radial artery measures 0.11 x 0.11 cm Left Radial artery measures 0.13 x 0.14 cm with a velocity of 52.3 cm/sec. with a velocity of 54.8 cm/sec. Interpretation Summary Very diminutive cephalic veins bilaterally. Borderline bilateral upper arm basilic veins. Small bilateral radial and brachial arteries. No evidence for acute thrombosis. Ordering Physician: Tonja Hernandez Performed By: Selam Dolan RVT ?
== END ==
PROVIDERS: Referring Provider Internal Medicine Nephrology; Visit Provider Internal Medicine Nephrology
DX: N18.4 Chronic kidney disease, stage 4 (severe) (principal)
CPT/HCPCS: 93970

== ENCOUNTER → 2018-09-29 09:14 | Outpatient (CLI) | payer OTHER, SELFPAY ==
[2018-09-16 12:44] VITALS: BMI 20.5
[2018-09-28 13:49] VITALS: BMI 21.1
[2018-09-28 16:47] LABS: International Normalized Ratio 1.5; Partial Thromboplast Time 36.1 Seconds (24.1-36.2); Prothrombin Time (Protime)PT. 18.2 SECONDS (11.7-14.9)
--- NOTE | 2018-09-29 09:16 | US_ITS ---
PROCEDURE: Ultrasound guided paracentesis. DATE OF EXAMINATION: September 29, 2018.. INDICATION: Female, 58 years old. Ascites. PHYSICIAN: Hernandez Eli M.D. TECHNIQUE: The risks, benefits, and alternatives to the procedure were explained to the patient. The specific risks of bleeding, infection, and damage to bowel were detailed and accepted. Witnessed informed consent was obtained. The abdomen was ultrasonographically surveyed. An appropriate pocket of fluid was identified at the right lower quadrant. The skin were cleaned and prepped in the usual sterile fashion. Using ultrasound guidance, the peritoneal cavity was accessed with a 5-Yoruba paracentesis needle/catheter system. The trocar was removed. A total of 2900 ml of brad-colored fluid were removed from the peritoneal cavity. The catheter was removed and a sterile dressing was applied. The procedure was well tolerated. US/Paracentesis with US IMPRESSION: Ultrasound guided paracentesis. Electronically Signed: Hernandez Eli, at 12:15 EDT , Service support ,
[2018-09-29 10:33] VITALS: BP 101/65; PULSE 74; RESP 16; TEMP 36.6; O2SAT 100; BMI 23.8
[2018-09-29] MEDS: Albumin Human 25% (100 mL) 25 GM/100 ML BAG IV ×2 (11:15→12:47)
== END ==
PROVIDERS: Referring Provider Internal Medicine Gastroenterology; Visit Provider Internal Medicine Gastroenterology
DX: K74.60 Unspecified cirrhosis of liver (principal)
CPT/HCPCS: 96365; 96366 ×3; 36415; 49083; 85610; 85730; P9047; A4216

== ENCOUNTER 2018-10-06 14:29 | Outpatient (RCR) | payer OTHER, SELFPAY ==
[2018-09-29 10:33] VITALS: BMI 23.8
[2018-10-06 15:16] LABS: Absolute Neutrophil Count 4.3 X10^3/uL (2.0-7.7); Basophil# 0.05 X10^3/uL; Basophil% 0.6 % (0-1); Eosinophil# 0.88 X10^3/uL; Eosinophils% 9.7 % (0-5); Hematocrit 29.6 % (37-47); Hemoglobin 9.8 g/dl (12.0-15.0); Lymphocyte % 36.5 % (19-41); Mean Corp Hgb Conc 33.1 g/gl (32-36); Mean Corpuscular Volume 90.5 fL (81-99); Mean Platelet Vol. 10.1 fl (6.2-12.0); Monocyte% 5.5 % (0-10); Neutrophil # 4.29 X10^3/uL (2.7-7.7); Neutrophil % 47.4 % (47-70); Platelet Count 194 K/mm3 (150-450); RBC Distribution Width CV 16.3 % (11.6-14.6); RBC Distribution Width SD 52.4 fl (35.1-43.9); Red Blood Count 3.27 M/mm3 (4.2-5.4); White Blood Count 9.1 K/mm3 (4.4-11.0)
[2018-10-06 15:18] LABS: International Normalized Ratio 1.4; Prothrombin Time (Protime)PT. 17.1 SECONDS (11.7-14.9)
[2018-10-06 15:19] LABS: POSITIVE COUNT NO; POSITIVE DIFFERENTIAL NO; POSITIVE MORPHOLOGY NO
[2018-10-06 15:45] LABS: ALB/GLOB Ratio 0.7 RATIO (0.9-2.4); AST(SGOT) 35 U/L (15-37); Alanine Aminotransfer ALT/SGPT 24 U/L (13-56); Albumin, Serum 2.9 g/dL (3.2-5.0); Alkaline Phosphatase 133 U/L (45-117); Anion Gap 9 (5-15); BUN 28 mg/dL (7-18); BUN/Creat Ratio 14.6 RATIO (10-20); Calcium,Total 8.3 mg/dL (8.5-10.1); Chloride 109 mmol/L (98-107); Creatinine, Serum 1.92 mg/dL (0.55-1.02); EST Glomerular Filtration Rate 29 mL/min (>60); Est Glom Filt Rate - Afr Amer 35 mL/min (>60); Glucose 102 mg/dL (74-106); Potassium 3.7 mmol/L (3.5-5.1); Protein, Total 6.9 g/dL (6.4-8.2); Sodium Level 138 mmol/L (136-145)
== END 2018-10-06 15:29 | disposition home or self-care (01) ==
LOC: LAB 14:29
PROVIDERS: Referring Provider Internal Medicine Gastroenterology; Visit Provider Internal Medicine Gastroenterology
DX: K70.30 Alcoholic cirrhosis of liver without ascites (principal); R10.9 Unspecified abdominal pain; R11.0 Nausea
CPT/HCPCS: 36415; 80053; 85025; 85610

== ENCOUNTER → 2018-10-07 08:21 | Outpatient (CLI) | payer OTHER, SELFPAY ==
[2018-09-16 12:44] VITALS: BMI 20.5
[2018-09-29 10:33] VITALS: BMI 23.8
--- NOTE | 2018-10-07 08:24 | US_ITS ---
PROCEDURE: Ultrasound guided paracentesis. DATE OF EXAMINATION: October 07, 2018. INDICATION: Female, 58 years old. Ascites. PHYSICIAN: Hernandez Eli M.D. TECHNIQUE: The risks, benefits, and alternatives to the procedure were explained to the patient. The specific risks of bleeding, infection, and damage to bowel were detailed and accepted. Witnessed informed consent was obtained. The abdomen was ultrasonographically surveyed. An appropriate pocket of fluid was identified at the left lower quadrant. The skin were cleaned and prepped in the usual sterile fashion. Using ultrasound guidance, the peritoneal cavity was accessed with a 5-Tamazight paracentesis needle/catheter system. The trocar was removed. A total of 8000 ml of brad-colored fluid were removed from the peritoneal cavity. The catheter was removed and a sterile dressing was applied. The procedure was well tolerated. US/Paracentesis with US IMPRESSION: Ultrasound guided paracentesis. Electronically Signed: Hernandez Eli, at 10:23 EDT , Service support ,
[2018-10-07 09:50] VITALS: BP 117/67; PULSE 77; RESP 16; O2SAT 98; BMI 25.0
[2018-10-07] MEDS: Albumin Human 25% (100 mL) 25 GM/100 ML BAG IV ×2 (10:18→11:42)
== END ==
PROVIDERS: Referring Provider Internal Medicine Gastroenterology; Visit Provider Internal Medicine Gastroenterology
DX: K74.60 Unspecified cirrhosis of liver (principal)
CPT/HCPCS: 96365; 96366 ×3; 49083; P9047; A4216

== ENCOUNTER → 2018-10-14 07:32 | Outpatient (CLI) | payer OTHER, SELFPAY ==
[2018-09-29 10:33] VITALS: BMI 23.8
[2018-10-12 10:20] VITALS: BMI 25.0
--- NOTE | 2018-10-14 08:20 | US_ITS ---
PROCEDURE: Ultrasound guided paracentesis. DATE OF EXAMINATION: October 14, 2018. INDICATION: Female, 58 years old. Ascites. PHYSICIAN: Hernandez Eli M.D. TECHNIQUE: The risks, benefits, and alternatives to the procedure were explained to the patient. The specific risks of bleeding, infection, and damage to bowel were detailed and accepted. Witnessed informed consent was obtained. The abdomen was ultrasonographically surveyed. An appropriate pocket of fluid was identified at the right lower quadrant. The skin were cleaned and prepped in the usual sterile fashion. Using ultrasound guidance, the peritoneal cavity was accessed with a 5-Djiboutian paracentesis needle/catheter system. The trocar was removed. A total of 8000 ml of brad-colored fluid were removed from the peritoneal cavity. The catheter was removed and a sterile dressing was applied. The procedure was well tolerated. US/Paracentesis with US IMPRESSION: Ultrasound guided paracentesis. Electronically Signed: Hernandez Eli, at 11:01 EDT , Service support ,
[2018-10-14 08:35] VITALS: BP 105/59; BP 105/73; BP 111/65; BP 113/72; BP 116/64; BP 120/72; BP 120/79; BP 122/76; BP 129/79; PULSE 66; PULSE 67; PULSE 68; PULSE 69; PULSE 71; PULSE 72; PULSE 81; RESP 16; O2SAT 100; O2SAT 98; O2SAT 99
[2018-10-14 10:12] VITALS: BP 103/58; PULSE 72; RESP 18; TEMP 36.6; O2SAT 100; BMI 21.4
[2018-10-14] MEDS: Albumin Human 25% (100 mL) 25 GM/100 ML BAG IV ×2 (10:49→12:18)
== END ==
LOC: US 07:33 → MEDOUTP 09:28
PROVIDERS: Referring Provider Internal Medicine Gastroenterology; Visit Provider Internal Medicine Gastroenterology
DX: K74.60 Unspecified cirrhosis of liver (principal)
CPT/HCPCS: 96365; 96366 ×3; 49083; P9047; A4216

== ENCOUNTER 2018-10-17 07:26 | Day surgery (SDC) | payer OTHER, SELFPAY ==
--- NOTE | 2018-09-28 05:17 | HP_ITS ---
Intake Vital Signs 09/28/18 Body Mass Index (BMI) 21.1 09/28/18 Height 5 ft 09/28/18 Weight: 121 lb 09/28/18 Body Mass Index (BMI) 23.6 09/28/18 Blood Pressure 100/61 09/28/18 Blood Pressure Location Rt brachial 09/28/18 Blood Pressure Position Sitting 09/28/18 Respiratory Rate 20 H 09/28/18 Pulse Rate 86 09/28/18 Pulse Source Monitor 09/28/18 Temperature 98.0 F 09/28/18 Temperature Source Oral 09/28/18 Pulse Ox 99 09/28/18 Oxygen Delivery Method room air Intake Visit Reasons: Fistula Consult/Vein Mapping 09/26 Chief Complaint: albumin [employer] Required: No Is patient in pain?: No Allergies No Known Allergies Allergy (Verified 09/28/18 13:46) Medications pantoprazole 40 mg tablet,delayed release 40 mg PO DAILY 02/28/18 [History Confirmed 09/28/18] Levothyroxine [Synthroid] 25 mcg PO DAILY 05/31/18 [History Confirmed 09/28/18] Albuterol Inhaler [Ventolin Hfa] 2 puff INHALATION BID 07/04/18 [History Confirmed 09/28/18] hydrOXYzine tablet [Atarax tablet] 10 mg PO TID PRN PRN #30 tab 07/06/18 [Rx Confirmed 09/28/18] Rifaximin [Xifaxan] 550 mg PO BID 09/21/18 [History Confirmed 09/28/18] Sucralfate [Carafate] 1 gm PO BID 09/21/18 [History Confirmed 09/28/18] PFSH Medical History Kidney disease (Chronic) Cirrhosis (Chronic) Alcoholic cirrhosis of liver with ascites (Chronic) Nicotine dependence, uncomplicated (Chronic) Chronic obstructive pulmonary disease (Chronic) Nutritional anemia (Chronic) Hypothyroidism (Chronic) Anemia (Chronic) Renal failure (Chronic) Spontaneous bacterial peritonitis (Acute) Alcoholic cirrhosis of liver (Chronic) Tobacco abuse (Chronic) Stage 1 mild COPD by GOLD classification (Chronic) Lung mass (Chronic) Surgical History H/O dilation and curettage (Resolved) Family History Father Myocardial infarction Mother Heart disease Kidney disease Liver disease Brother Brain cancer Social History current occupational status: retired pets and animals: No Smoking Status: Current every day smoker alcohol intake: former year quit: 2018 substance use type: marijuana HPI HPI HPI: KEYLA MATTHEWS, is a 58 F who presents to the office today for HPI HPI Surgical H&P: Yes HPI: KEYLA MATTHEWS, is a 58 F who presents to the office today for who is referred today for surgical consultation regarding arteriovenous hemodialysis fistula creation by Dr. Tonja Hernandez. A written copy of my surgical consult recommendations will be returned to her. This is a 58-year-old female. She has significant chronic morbidity secondary to alcoholic cirrhosis end-stage renal disease ongoing tobacco addiction. She requires paracentesis weekly with albumin infusions. She has stage IV renal disease. At the [facility] on September 26, 2018 she had bilateral upper extremity vein mapping demonstrating diminutive cephalic veins bilaterally. Bilateral upper arm basilic veins are borderline. The patient is right arm dominant She receives her routine health care via the [facility] She also has a seat cover installer Dr. Alberto Aguirre in [place]. The patient and her caregiver had gone to a discussion regarding dialysis treatment options. They had it in their minds I that she would be a candidate for peritoneal dialysis at home. Again it is of note that she develops ascitic ascites so rapidly that she requires weekly paracentesis ROS General General: Yes weight change and fatigue; no appetite, colon cancer, breast cancer or weakness HEENT HEENT: Yes swollen glands; no difficulty swallowing, eye injury, eye surgery or hoarseness Endo Endocrine: Yes thyroid disease; no diabetes mellitus, thyroid cancer, Hair loss, heat intolerance or cold intolerance Skin Skin: No rash or changing moles Breast Breast: No left breast lump, right breast lump, nipple discharge, breast pain, abnormal mammogram, abnormal US or breast enlargement Musc Musculoskeletal: No back problems, arthritis, rheumatoid arthritis, gout or joint pain Cardio Cardiovascular: No murmur, pacemaker, heart disease, atrial fibrillation, high blood pressure, heart attack, heart stent, palpitations, shortness of breat with exertion or chest pain Psych Psychiatric: No depression, anxiety or hearing voices Resp Respiratory: No shortness of breath, No sleep apnea, Yes cough, Yes COPD, No asthma, Yes emphysema, No wheezing Gastro Gastrointestinal: Yes abdominal pain, Yes nausea or vomiting, Yes diarrhea, No constipation, No blood in stool, Yes acid reflux, No hemorrhoids, Yes ulcers, No gallbladder problem, No black,tarry stools Yoel Hematologic: No blood thinners, No blood disorders, No bleeding, Yes anemia, No blood clots Neuro Neurologic: No system reviewed and no additional complaints, except as docu, No as per HPI, No abnormal walking, No abnormal hearing, No abnormal movements, No abnormal speech, No behavioral changes, No burning sensations, No confusion, No seizure-like activity, No unsteadiness, No dizziness, No localized weakness, No frequent falls, No headache(s), No lack of coordination, No loss of vision, No memory loss, No numbness, No other visual disturbances, No radiating pain, No restless legs, No sensory deficit, No fainting, No tingling, No tremor(s), No weakness, No other Exam Const General: cooperative, frail appearing, ill appearing Nutritional Appearance: underweight Orientation: alert, awake [facility] Head: normal to inspection Chest Breast Palpation: No nipple discharge Other: Notably increased anterior posterior diameter Resp Other: Coarse breath sounds bilaterally with poor respiratory excursion and bilateral wheezing noted Cardio Rate: regular rate Rhythm: regular rhythm Heart Sounds: no murmurs GI Other: Tightly distended abdomen, nontender Musc Cervical Spine: normal cervical lordosis Neuro Cognition: normal cognition Extrem Other: Muscle mass loss noted at all sites. The left upper arm basilic vein is visible. I was able to image it on ultrasound. It appears to be of adequate diameter. Psych Affect: normal affect Assessment & Plan Problems 1. Kidney disease, chronic, stage IV (GFR 15-29 ml/min) N18.4 Plan 58-year-old female who appears far older than stated age. Significant comorbidities of end-stage liver disease and COPD and stage IV renal failure. She has been referred for creation of an AV fistula. I have suggested the patient that I do not believe that she is a candidate for home peritoneal dialysis. I discussed with her creation of a left upper arm transposed basilic vein to brachial artery arteriovenous hemodialysis fistula. I discussed the benefit risk complications and alternatives. She is aware that clearly her medical comorbidities place her at significantly increased operative risk. However we would like to avoid tunneled hemodialysis catheters as well. She is to have paracentesis tomorrow to help alleviate her fluid weight gain and abdominal distention. This weekly paracentesis and albumin replacement apparently has been ongoing for perhaps 9 months. As noted she is under the care of a seat cover installer. No guarantees of success regarding the fistula creation have been offered. We will schedule and proceed at her discretion. She also suggested that her insurance does allow for her to obtain hemodialysis locally in [place]. I suggested to her that she contact Dr. Tonja Hernandez to decipher options available. Clearly transporting to [place] 3 times a week would not be a viable option. CC: Dr. Tonja Wang M.D., F.A.C.S. Coding Level of Care Code Comprehensive,moderate Diagnoses Kidney disease, chronic, stage IV (GFR 15-29 ml/min) N18.4 10/03/18 1737 <Electronically signed by Sahil Wang MD> Date Sahil Wang MD I have re-examined the patient. There are no clinical changes since date of exam.
[2018-09-29 10:33] VITALS: BMI 23.8
--- NOTE | 2018-10-14 07:42 | EKG12_ITS ---
Test Reason : PRE OP Blood Pressure : / mmHG Vent. Rate : 069 BPM Atrial Rate : 069 BPM P-R Int : 190 ms QRS Dur : 072 ms QT Int : 372 ms P-R-T Axes : 049 089 053 degrees QTc Int : 398 ms Normal sinus rhythm Low voltage QRS Borderline ECG Confirmed by SARAVANAN BABCOCK, COLUMBA ([id number]), video effects editor MIGUEL FENRANDES ([id number]) on 10/17/2018 1:33:10 PM Referred By: Sahil Wang Confirmed By:COLUMBA COE MD
[2018-10-14 08:47] LABS: Hematocrit 30.8 % (37-47); Hemoglobin 9.9 g/dl (12.0-15.0); Mean Corp Hgb Conc 32.1 g/gl (32-36); Mean Corpuscular Volume 93.3 fL (81-99); Mean Platelet Vol. 10.4 fl (6.2-12.0); Platelet Count 202 K/mm3 (150-450); RBC Distribution Width CV 16.8 % (11.6-14.6); RBC Distribution Width SD 55.1 fl (35.1-43.9); White Blood Count 7.2 K/mm3 (4.4-11.0)
[2018-10-14 08:54] LABS: Scan Indicated on CBC? Y/N NO
[2018-10-14 09:19] LABS: Anion Gap 7 (5-15); BUN 33 mg/dL (7-18); BUN/Creat Ratio 18.4 RATIO (10-20); Calcium,Total 8.4 mg/dL (8.5-10.1); Chloride 112 mmol/L (98-107); Creatinine, Serum 1.79 mg/dL (0.55-1.02); EST Glomerular Filtration Rate 31 mL/min (>60); Est Glom Filt Rate - Afr Amer 38 mL/min (>60); Glucose 106 mg/dL (74-106); Potassium 4.2 mmol/L (3.5-5.1); Sodium Level 141 mmol/L (136-145)
[2018-10-15 09:42] VITALS: BMI 23.8
[2018-10-17] VITALS (11 sets, daily range): BP systolic 81–109; BP diastolic 56–77; PULSE 75–92; RESP 14–18; TEMP 36.2–36.7; O2SAT 93–100; BMI 21.5
--- NOTE | 2018-10-17 09:37 | DCINST_ITS ---
Discharge Diet: Renal Diet Discharge Activity: May Not Drive - for 2-3 days or while taking narcotic pain medications., May Shower, May Take a Tub Bath - in 5 days. Lifting Restrictions: 5 pounds Keep extremity elevated above heart level: - - Keep arm elevated above the heart level for 3 days. Additional Activity Instructions:: Exercise hand vigorously with a stress ball. Call your doctor if your incision/area has: Continuous Slow Oozing, Sudden Increased Bleeding - apply pressure and call your doctor., Increased Pain/ Swelling, Increased Redness, Foul Smelling Discharge Call your doctor if you observe: Fever of 101 or Higher Suture Line Care: Avoid Pulling/Pushing, Avoid Pinching/Bending Cleanse incision/area with: Keep Dressing Clean & Dry Additional Dressing/Incision Instructions:: Change or remove dressing in 2-3 days. Leave steri strips for one week please Allergies/Adverse Reactions: Allergies No Known Allergies Allergy (Verified 10/11/18 12:56) Medications to take at Discharge pantoprazole 40 mg tablet,delayed release 40 mg PO DAILY 02/28/18 Levothyroxine [Synthroid] 25 mcg PO DAILY 05/31/18 Albuterol Inhaler [Ventolin Hfa] 2 puff INHALATION BID 07/04/18 hydrOXYzine tablet [Atarax tablet] 10 mg PO TID PRN PRN #30 tab 07/06/18 Rifaximin [Xifaxan] 550 mg PO BID 09/21/18 Sucralfate [Carafate] 1 gm PO BID PRN 09/21/18 traMADol [Ultram] 50 mg PO TID PRN PRN #5 tablet 10/17/18 The following prescriptions were given: traMADol [Ultram] 50 mg PO TID PRN PRN #5 tablet PRN Reason: Moderate Pain (4-5/10) Primary Care Physician: Katharine Worrell [Primary Care Provider] - Test Results: Test results from this visit will be discussed in further detail at your follow- up appointment, if applicable. Please Follow Up With: Sahil Wang MD - [phone] When: Call to make an appointment for suture removal and follow up in 10 days
[2018-10-17] MEDS: Bupivacaine Mpf 0.5% 30 ML VIAL (10:47)
[2018-10-17] MEDS: Heparin Injection (Vial) 5,000 UNIT/ML VIAL 5000 UNIT (10:52)
--- NOTE | 2018-10-17 11:40 | PCM.OPRPT ---
Problem List (1) Renal failure Status: Chronic Qualifiers: Renal failure chronicity: chronic Chronic kidney disease stage: stage 4 (severe) Qualified Code(s): N18.4 - Chronic kidney disease, stage 4 (severe) Report of Operation Date of Procedure: 10/17/18 Pre-Operative Diagnosis: Stage IV chronic renal insufficiency Post-Operative Diagnosis: Same Surgery/Procedure Performed:: Transposition left upper extremity basilic vein to brachial artery arteriovenous hemodialysis fistula creation Description of Surgical Findings:: Female was taken the operating room. She was placed upon the table. She underwent monitored anesthesia care. Clean case no antibiotics required. The left extremity sterilely prepped and draped. 30 cc of 1% lidocaine mixed 50-50 with 0.5% Marcaine and 10 cc of 0.5% lidocaine was used as local anesthetic. Local was instilled at the site where the ultrasound agrees vein mapping for the left upper extremity basilic vein. Local was instilled sequentially at the left upper arm. Longitudinal incision was created. The vein was carefully harvested. Side branches were secured with 4-0 Vicryl ligatures and hemoclips. The vein was dissected free up to the axilla good length of vein was achieved. Then the vein was marked. It was measured. An appropriate place in the upper arm sharp and blunt dissection used to identify the brachial artery and circumferential control was obtained. Then the tunneler was placed from the distal upper arm to the more proximal upper arm. The patient received 5000 units of heparin. The vein was ligated to the antecubital space with 2 medium Hemovac hemoclips. The vein was then irrigated and had been marked it was good diameter. Using a 3-0 Vicryl suture was then placed through the tunnel and the tunneler was removed there was good positional lie. Peripheral vascular clamps were placed on the brachial artery and 11 blade was used to make an arteriotomy with extended with Rivera scissors. A spatulated end-to-side anastomosis was created with a running 7-0 Prolene. Prior to completion there appeared to be good antegrade flow good retrograde flow. The anastomosis was immediately hemostatic. There was a good positional lie of the vein. There was a pulse and thrill. The hand was very carefully inspected. The hand had biphasic arterial flow but this almost was irrespective of whether the fistula was occluded or not. The hand was carefully inspected and appeared to be pink it appeared to have adequate capillary refill. The anastomosis was inspected and did not appear to be overtly enlarged. Carefully inspected this multiple times. At this point I elected not to put restricting cuff on this fistula. Hemostasis was nicely intact. The wound was closed with a deep layer of interrupted 3-0 Vicryl. The skin edges were approximated in running subcuticular 4-0 Monocryl. Steri-Strips Telfa soft roll Nick wrap applied. Sponge and instrument and needle counts were reported the surgeon be correct. Blood loss was minimal. There is no apparent complication. She was taken to the recovery area in satisfactory condition. Specimens none. Drains none. Blood loss minimal. Sahil Wang M.D., F.A.C.S. Type of Anesthesia:: Local MAC Anesthesiologist: Stephanie Singletary
== END 2018-10-17 13:51 | disposition home or self-care (01) ==
LOC: SDC 07:27 → AC 07:27
PROVIDERS: Referring Provider Surgery; Visit Provider Surgery
PROC: (CPT 36819; principal; 2018-10-17 09:20)
DX: N18.4 Chronic kidney disease, stage 4 (severe) (principal); K70.31 Alcoholic cirrhosis of liver with ascites; K72.90 Hepatic failure, unspecified without coma; J44.9 Chronic obstructive pulmonary disease, unspecified; E03.9 Hypothyroidism, unspecified; D53.9 Nutritional anemia, unspecified; F32.9 Major depressive disorder, single episode, unspecified; F17.200 Nicotine dependence, unspecified, uncomplicated; Z78.0 Asymptomatic menopausal state; Z79.899 Other long term (current) drug therapy
CPT/HCPCS: 36819; 36415; 80048; 85027; 93005; J7120

== ENCOUNTER → 2018-10-21 09:15 | Outpatient (CLI) | payer OTHER, SELFPAY ==
[2018-09-29 10:33] VITALS: BMI 23.8
[2018-10-17 08:17] VITALS: BMI 21.5
--- NOTE | 2018-10-21 09:17 | US_ITS ---
PROCEDURE: Ultrasound guided paracentesis. DATE OF EXAMINATION: October 21, 2018. INDICATION: Female, 58 years old. Ascites. PHYSICIAN: Hernandez Eli M.D. TECHNIQUE: The risks, benefits, and alternatives to the procedure were explained to the patient. The specific risks of bleeding, infection, and damage to bowel were detailed and accepted. Witnessed informed consent was obtained. The abdomen was ultrasonographically surveyed. An appropriate pocket of fluid was identified at the right lower quadrant. The skin were cleaned and prepped in the usual sterile fashion. Using ultrasound guidance, the peritoneal cavity was accessed with a 5-Botswanan paracentesis needle/catheter system. The trocar was removed. A total of 5200 ml of brad-colored fluid were removed from the peritoneal cavity. The catheter was removed and a sterile dressing was applied. The procedure was well tolerated. US/Paracentesis with US IMPRESSION: Ultrasound guided paracentesis. Electronically Signed: Hernandez Eli, at 10:51 EDT , Service support ,
[2018-10-21 10:33] VITALS: BP 95/55; PULSE 74; RESP 16; TEMP 36.9; O2SAT 100; BMI 20.5
[2018-10-21] MEDS: Albumin Human 25% (100 mL) 25 GM/100 ML BAG IV ×2 (11:08→12:37)
[2018-10-21 11:50] VITALS: BP 107/69; BP 109/55; PULSE 70; PULSE 78; RESP 16; O2SAT 100; O2SAT 99
== END ==
PROVIDERS: Referring Provider Internal Medicine Gastroenterology; Visit Provider Internal Medicine Gastroenterology
DX: K74.60 Unspecified cirrhosis of liver (principal)
CPT/HCPCS: 96365; 96366 ×2; 49083; P9047; A4216

== ENCOUNTER → 2018-10-28 08:17 | Outpatient (CLI) | payer MEDICAID, SELFPAY ==
[2018-09-29 10:33] VITALS: BMI 23.8
[2018-10-26 13:44] VITALS: BMI 22.1
--- NOTE | 2018-10-28 08:20 | US_ITS ---
PROCEDURE: Ultrasound guided paracentesis. DATE OF EXAMINATION: October 28, 2018. INDICATION: Female, 58 years old. Ascites. PHYSICIAN: Hernandez Eli M.D. TECHNIQUE: The risks, benefits, and alternatives to the procedure were explained to the patient. The specific risks of bleeding, infection, and damage to bowel were detailed and accepted. Witnessed informed consent was obtained. The abdomen was ultrasonographically surveyed. An appropriate pocket of fluid was identified at the right lower quadrant. The skin were cleaned and prepped in the usual sterile fashion. Using ultrasound guidance, the peritoneal cavity was accessed with a 5-Sammarinese paracentesis needle/catheter system. The trocar was removed. A total of 3400 ml of brad-colored fluid were removed from the peritoneal cavity. The catheter was removed and a sterile dressing was applied. The procedure was well tolerated. US/Paracentesis with US IMPRESSION: Ultrasound guided paracentesis. Electronically Signed: Hernandez Eli, at 10:14 EDT , Service support ,
[2018-10-28 08:45] VITALS: BP 113/53; BP 121/64; BP 97/54; PULSE 73; PULSE 74; RESP 16; O2SAT 100; O2SAT 99
[2018-10-28 09:25] VITALS: BP 101/64; PULSE 73; RESP 16; TEMP 36.4; O2SAT 100; BMI 21.4
[2018-10-28] MEDS: Albumin Human 25% (100 mL) 25 GM/100 ML BAG IV ×2 (09:58→11:30)
== END ==
PROVIDERS: Referring Provider Internal Medicine Gastroenterology; Visit Provider Internal Medicine Gastroenterology
DX: K74.60 Unspecified cirrhosis of liver (principal)
CPT/HCPCS: 96365; 96366 ×3; 49083; P9047; A4216

== ENCOUNTER → 2018-11-04 08:10 | Outpatient (CLI) | payer OTHER, SELFPAY ==
[2018-09-29 10:33] VITALS: BMI 23.8
[2018-10-28 09:25] VITALS: BMI 21.4
--- NOTE | 2018-11-04 08:13 | US_ITS ---
PROCEDURE: ULTRASOUND GUIDED PARACENTESIS CLINICAL HISTORY: Female, 58 years old. CONSENT: Time-Out Called: Yes. Consent form signed: Yes. PT/PTT Levels Checked: Yes. SEDATION: TECHNIQUE: FINDINGS: FLUID PRE-PROCEDURE Under ultrasound guidance and following appropriate antiseptic preparation and local anesthesia a drainage catheter was inserted in the right lower quadrant. Amount of fluid drained: 6050 ml of clear light yellowish fluid aspirated. The patient tolerated the procedure well. US/Paracentesis with US IMPRESSION: Uneventful paracentesis Electronically Signed: Boy Mendes, at 16:23 EDT Tel , Service support ,
[2018-11-04 08:35] VITALS: BP 100/73; BP 101/64; BP 102/62; BP 103/69; BP 106/68; BP 113/74; BP 116/67; BP 86/59; BP 89/49; BP 92/60; BP 96/64; PULSE 68; PULSE 71; PULSE 74; PULSE 75; PULSE 76; PULSE 77; PULSE 80; PULSE 84; RESP 16; RESP 18; O2SAT 94; O2SAT 95; O2SAT 96; O2SAT 97; O2SAT 98; O2SAT 99
[2018-11-04] MEDS: Albumin Human 25% (100 mL) 25 GM/100 ML BAG IV ×2 (09:44→11:21)
[2018-11-04 09:54] VITALS: BP 108/56; PULSE 72; RESP 18; TEMP 36.7; O2SAT 100; BMI 20.5
== END ==
LOC: US 08:11 → MEDOUTP 09:35
PROVIDERS: Referring Provider Internal Medicine Gastroenterology; Visit Provider Internal Medicine Gastroenterology
DX: K74.60 Unspecified cirrhosis of liver (principal)
CPT/HCPCS: 96365; 96366 ×3; 49083; P9047; A4216

== ENCOUNTER → 2018-11-10 09:16 | Outpatient (CLI) | payer OTHER, SELFPAY ==
[2018-10-28 09:25] VITALS: BMI 21.4
[2018-11-04 09:54] VITALS: BMI 20.5
[2018-11-10 08:45] LABS: Absolute Lymphocyte Count 2.14 X10^3/ul (0.83-4.51); Absolute Neutrophil Count 3.3 X10^3/uL (2.0-7.7); Basophil# 0.04 X10^3/uL; Basophil% 0.6 % (0-1); Eosinophil# 0.86 X10^3/uL; Eosinophils% 12.8 % (0-5); Hematocrit 31.4 % (37-47); Hemoglobin 10.2 g/dl (12.0-15.0); Lymphocyte # 2.14 X10^3/ul (4.0); Lymphocyte % 31.8 % (19-41); Mean Corp Hgb Conc 32.5 g/gl (32-36); Mean Corpuscular Hgb 30.4 pg (27.0-32.0); Mean Corpuscular Volume 93.5 fL (81-99); Mean Platelet Vol. 9.5 fl (6.2-12.0); Monocyte# 0.35 X10^3/uL; Monocyte% 5.2 % (0-10); Neutrophil # 3.34 X10^3/uL (2.7-7.7); Neutrophil % 49.5 % (47-70); Platelet Count 164 K/mm3 (150-450); RBC Distribution Width CV 15.9 % (11.6-14.6); RBC Distribution Width SD 54.3 fl (35.1-43.9); Red Blood Count 3.36 M/mm3 (4.2-5.4); White Blood Count 6.7 K/mm3 (4.4-11.0)
[2018-11-10 08:50] LABS: POSITIVE COUNT NO; POSITIVE DIFFERENTIAL NO; POSITIVE MORPHOLOGY NO
[2018-11-10 09:01] LABS: ALB/GLOB Ratio 0.8 RATIO (0.9-2.4); AST(SGOT) 35 U/L (15-37); Alanine Aminotransfer ALT/SGPT 20 U/L (13-56); Albumin, Serum 2.8 g/dL (3.2-5.0); Alkaline Phosphatase 102 U/L (45-117); Anion Gap 2 (5-15); BUN 36 mg/dL (7-18); BUN/Creat Ratio 19.8 RATIO (10-20); Chloride 111 mmol/L (98-107); Creatinine, Serum 1.82 mg/dL (0.55-1.02); EST Glomerular Filtration Rate 30 mL/min (>60); Est Glom Filt Rate - Afr Amer 37 mL/min (>60); Globulin 3.3 g/dL (2.2-4.2); Glucose 150 mg/dL (74-106); Potassium 4.4 mmol/L (3.5-5.1); Protein, Total 6.1 g/dL (6.4-8.2); Sodium Level 137 mmol/L (136-145)
[2018-11-10 09:02] LABS: International Normalized Ratio 1.5
--- NOTE | 2018-11-10 09:19 | US_ITS ---
PROCEDURE: ULTRASOUND GUIDED PARACENTESIS CLINICAL HISTORY: Female, 58 years old. CONSENT: Time-Out Called: Yes. Consent form signed: Yes. PT-PTT Levels Checked: Yes. SEDATION: TECHNIQUE: FINDINGS: FLUID PRE-PROCEDURE Under ultrasound guidance and following appropriate antiseptic preparation and local anesthesia, 6 [place] Citizen draining catheter was inserted in the right lower quadrant. 5650ml of clear fluid aspirated. The patient tolerated the procedure well. US/Paracentesis with US IMPRESSION: Uneventful Paracentesis Electronically Signed: Boy Mendes, at 15:15 EDT Tel , Service support ,
[2018-11-10 10:35] VITALS: BP 100/58; BP 91/72; BP 92/62; PULSE 71; PULSE 75; PULSE 79; RESP 16; O2SAT 96; O2SAT 98
[2018-11-10 10:47] VITALS: BP 106/70; PULSE 75; RESP 16; TEMP 36.7; O2SAT 99; BMI 20.5
[2018-11-10] MEDS: Albumin Human 25% (100 mL) 25 GM/100 ML BAG IV ×2 (10:53→12:19)
== END ==
LOC: US 09:16 → MEDOUTP 10:33
PROVIDERS: Referring Provider Internal Medicine Gastroenterology; Visit Provider Internal Medicine Gastroenterology
DX: K70.30 Alcoholic cirrhosis of liver without ascites (principal); K76.0 Fatty (change of) liver, not elsewhere classified; R10.9 Unspecified abdominal pain; F50.89 Other specified eating disorder; R11.0 Nausea
CPT/HCPCS: 96365; 96366 ×3; 36415; 49083; 80053; 85025; 85610; P9047; A4216

== ENCOUNTER → 2018-11-16 07:50 | Outpatient (CLI) | payer OTHER, SELFPAY ==
[2018-10-28 09:25] VITALS: BMI 21.4
[2018-11-10 10:47] VITALS: BMI 20.5
--- NOTE | 2018-11-16 07:52 | US_ITS ---
PROCEDURE: Ultrasound guided paracentesis. DATE OF EXAMINATION: November 16, 2018. INDICATION: Female, 58 years old. Ascites. PHYSICIAN: Hernandez Eli M.D. TECHNIQUE: The risks, benefits, and alternatives to the procedure were explained to the patient. The specific risks of bleeding, infection, and damage to bowel were detailed and accepted. Witnessed informed consent was obtained. The abdomen was ultrasonographically surveyed. An appropriate pocket of fluid was identified at the left lower quadrant. The skin were cleaned and prepped in the usual sterile fashion. Using ultrasound guidance, the peritoneal cavity was accessed with a 5-English paracentesis needle/catheter system. The trocar was removed. A total of 4900 ml of brad-colored fluid were removed from the peritoneal cavity. The catheter was removed and a sterile dressing was applied. The procedure was well tolerated. US/Paracentesis with US IMPRESSION: Ultrasound guided paracentesis. Electronically Signed: Hernandez Eli, at 9:19 EDT , Service support ,
[2018-11-16] MEDS: Albumin Human 25% (100 mL) 25 GM/100 ML BAG IV ×2 (08:58→10:28)
[2018-11-16 09:04] VITALS: BP 100/56; PULSE 77; RESP 16; TEMP 36.5; O2SAT 100; BMI 21.4
[2018-11-16 09:08] VITALS: BP 108/67; BP 98/65; BP 99/54; PULSE 72; PULSE 74; PULSE 75; RESP 18; RESP 20; O2SAT 100; O2SAT 97; O2SAT 99
== END ==
LOC: US 07:52 → MEDOUTP 08:49
PROVIDERS: Referring Provider Internal Medicine Gastroenterology; Visit Provider Internal Medicine Gastroenterology
DX: K74.60 Unspecified cirrhosis of liver (principal)
CPT/HCPCS: 96365; 96366 ×2; 49083; P9047

== ENCOUNTER → 2018-11-21 09:16 | Outpatient (CLI) | payer OTHER, SELFPAY ==
[2018-11-16 09:04] VITALS: BMI 21.4
[2018-11-21 10:59] LABS: Hemoglobin 10.4 g/dl (12.0-15.0); Mean Corp Hgb Conc 32.5 g/gl (32-36); Mean Corpuscular Hgb 30.1 pg (27.0-32.0); Mean Corpuscular Volume 92.5 fL (81-99); Mean Platelet Vol. 10.3 fl (6.2-12.0); Platelet Count 171 K/mm3 (150-450); RBC Distribution Width SD 52.8 fl (35.1-43.9); Red Blood Count 3.46 M/mm3 (4.2-5.4); White Blood Count 6.8 K/mm3 (4.4-11.0)
[2018-11-21 11:01] LABS: Scan Indicated on CBC? Y/N NO
[2018-11-21 11:14] LABS: Albumin, Serum 2.9 g/dL (3.2-5.0); BUN 30 mg/dL (7-18); Calcium,Total 8.2 mg/dL (8.5-10.1); Chloride 113 mmol/L (98-107); Creatinine, Serum 1.76 mg/dL (0.55-1.02); EST Glomerular Filtration Rate 32 mL/min (>60); Est Glom Filt Rate - Afr Amer 38 mL/min (>60); Glucose 121 mg/dL (74-106); Phosphorus 3.5 mg/dL (2.5-4.9); Potassium 4.1 mmol/L (3.5-5.1); Sodium Level 141 mmol/L (136-145)
== END ==
PROVIDERS: Referring Provider Internal Medicine Nephrology; Visit Provider Internal Medicine Nephrology
DX: N18.4 Chronic kidney disease, stage 4 (severe) (principal); D64.9 Anemia, unspecified
CPT/HCPCS: 36415; 80069; 85027

== ENCOUNTER → 2018-11-25 08:18 | Outpatient (CLI) | payer OTHER, SELFPAY ==
[2018-10-28 09:25] VITALS: BMI 21.4
[2018-11-16 09:04] VITALS: BMI 21.4
--- NOTE | 2018-11-25 08:20 | US_ITS ---
PROCEDURE: Ultrasound guided paracentesis. DATE OF EXAMINATION: November 25, 2018. INDICATION: Female, 58 years old. Ascites. PHYSICIAN: Hernandez Eli M.D. TECHNIQUE: The risks, benefits, and alternatives to the procedure were explained to the patient. The specific risks of bleeding, infection, and damage to bowel were detailed and accepted. Witnessed informed consent was obtained. The abdomen was ultrasonographically surveyed. An appropriate pocket of fluid was identified at the right lower quadrant. The skin were cleaned and prepped in the usual sterile fashion. Using ultrasound guidance, the peritoneal cavity was accessed with a 5-Faroese paracentesis needle/catheter system. The trocar was removed. A total of 7050 ml of brad-colored fluid were removed from the peritoneal cavity. The catheter was removed and a sterile dressing was applied. The procedure was well tolerated. US/Paracentesis with US IMPRESSION: Ultrasound guided paracentesis. Electronically Signed: Hernandez Eli, at 9:44 EDT , Service support ,
[2018-11-25 09:31] VITALS: BP 102/65; PULSE 76; RESP 18; TEMP 36.2; O2SAT 99; BMI 20.5
[2018-11-25 09:44] VITALS: BP 117/58; BP 117/93; BP 90/54; PULSE 78; PULSE 79; PULSE 80; RESP 16; O2SAT 98
[2018-11-25] MEDS: Albumin Human 25% (100 mL) 25 GM/100 ML BAG IV ×2 (09:46→11:07)
== END ==
LOC: US 08:19 → MEDOUTP 09:29
PROVIDERS: Referring Provider Internal Medicine Gastroenterology; Visit Provider Internal Medicine Gastroenterology
DX: K74.60 Unspecified cirrhosis of liver (principal)
CPT/HCPCS: 96365; 96366 ×2; 49083; P9047; A4216

== ENCOUNTER → 2018-12-02 08:21 | Outpatient (CLI) | payer OTHER, SELFPAY ==
[2018-11-16 09:04] VITALS: BMI 21.4
[2018-11-25 09:31] VITALS: BMI 20.5
--- NOTE | 2018-12-02 08:23 | US_ITS ---
PROCEDURE: Ultrasound guided paracentesis. DATE OF EXAMINATION: December 02, 2018. INDICATION: Female, 58 years old. Ascites. PHYSICIAN: Hernandez Eli M.D. TECHNIQUE: The risks, benefits, and alternatives to the procedure were explained to the patient. The specific risks of bleeding, infection, and damage to bowel were detailed and accepted. Witnessed informed consent was obtained. The abdomen was ultrasonographically surveyed. An appropriate pocket of fluid was identified at the right lower quadrant. The skin were cleaned and prepped in the usual sterile fashion. Using ultrasound guidance, the peritoneal cavity was accessed with a 5-Monegasque paracentesis needle/catheter system. The trocar was removed. A total of 5150 ml of brad-colored fluid were removed from the peritoneal cavity. The catheter was removed and a sterile dressing was applied. The procedure was well tolerated. US/Paracentesis with US IMPRESSION: Ultrasound guided paracentesis. Electronically Signed: Hernandez Eli, at 11:22 EDT , Service support ,
[2018-12-02 08:42] VITALS: BP 115/73; BP 117/77; BP 119/80; PULSE 91; PULSE 94; PULSE 97; RESP 16; RESP 18; O2SAT 100; O2SAT 98
[2018-12-02 09:16] VITALS: BP 117/69; PULSE 88; RESP 18; O2SAT 98
[2018-12-02 09:46] VITALS: BP 114/83; PULSE 95; RESP 16; TEMP 36.6; O2SAT 98; BMI 22.4
[2018-12-02] MEDS: Albumin Human 25% (100 mL) 25 GM/100 ML BAG IV ×2 (09:51→11:24)
== END ==
LOC: US 09:08 → MEDOUTP 09:34
PROVIDERS: Referring Provider Internal Medicine Gastroenterology; Visit Provider Internal Medicine Gastroenterology
DX: K74.60 Unspecified cirrhosis of liver (principal)
CPT/HCPCS: 96360; 96361 ×2; 49083; P9047; A4216

== ENCOUNTER → 2018-12-05 09:20 | Outpatient (CLI) | payer OTHER, SELFPAY ==
[2018-12-02 15:41] VITALS: BMI 22.4
[2018-12-05 11:03] LABS: T4 Free Direct 1.31 ng/dL (0.76-1.46); Thyroid Stim Hormone (TSH) 3.36 uIU/mL (0.358-3.74)
== END ==
DX: E03.9 Hypothyroidism, unspecified (principal)
CPT/HCPCS: 36415; 84439; 84443

== ENCOUNTER → 2018-12-09 07:16 | Outpatient (CLI) | payer OTHER, SELFPAY ==
[2018-11-16 09:04] VITALS: BMI 21.4
[2018-12-02 15:41] VITALS: BMI 22.4
[2018-12-09 07:34] LABS: Absolute Lymphocyte Count 2.83 X10^3/uL (0.83-4.51); Absolute Neutrophil Count 3.5 X10^3/uL (2.0-7.7); Basophil# 0.05 X10^3/uL; Basophil% 0.7 % (0-1); Eosinophil# 0.79 X10^3/uL; Eosinophils% 10.4 % (0-5); Hematocrit 35.2 % (37-47); Hemoglobin 11.4 g/dL (12.0-15.0); Lymphocyte # 2.83 X10^3/ul (4.0); Lymphocyte % 37.1 % (19-41); Mean Corp Hgb Conc 32.4 g/dL (32-36); Mean Corpuscular Hgb 30.6 pg (27.0-32.0); Mean Corpuscular Volume 94.4 fL (81-99); Mean Platelet Vol. 9.4 fl (6.2-12.0); Monocyte# 0.41 X10^3/uL; Monocyte% 5.4 % (0-10); NRBC Flagged by Analyzer 0 % (0-5); Neutrophil # 3.53 X10^3/uL (2.7-7.7); Neutrophil % 46.1 % (47-70); Platelet Count 179 K/mm3 (150-450); RBC Distribution Width CV 15.3 % (11.6-14.6); Red Blood Count 3.73 M/mm3 (4.2-5.4); White Blood Count 7.6 K/mm3 (4.4-11.0)
[2018-12-09 07:49] LABS: ALB/GLOB Ratio 0.8 RATIO (0.9-2.4); AST(SGOT) 40 U/L (15-37); Alanine Aminotransfer ALT/SGPT 23 U/L (13-56); Albumin, Serum 2.9 g/dL (3.2-5.0); Alkaline Phosphatase 109 U/L (45-117); Anion Gap 6 (5-15); BUN 27 mg/dL (7-18); BUN/Creat Ratio 15.5 RATIO (10-20); Calcium,Total 8.2 mg/dL (8.5-10.1); Chloride 109 mmol/L (98-107); Creatinine, Serum 1.74 mg/dL (0.55-1.02); EST Glomerular Filtration Rate 32 mL/min (>60); Est Glom Filt Rate - Afr Amer 39 mL/min (>60); Globulin 3.6 g/dL (2.2-4.2); Glucose 89 mg/dL (74-106); International Normalized Ratio 1.4; Protein, Total 6.5 g/dL (6.4-8.2); Prothrombin Time (Protime)PT. 16.7 SECONDS (11.7-14.9); Sodium Level 137 mmol/L (136-145)
--- NOTE | 2018-12-09 08:11 | US_ITS ---
PROCEDURE: ULTRASOUND GUIDED PARACENTESIS CLINICAL HISTORY: Female, 58 years old. Diffuse ascites CONSENT: Informed consent obtained Time-Out Called: Yes. Consent form signed: Yes. PT-PTT Levels Checked: Yes. SEDATION: Local with 2% Xylocaine TECHNIQUE: Ultrasound guided FINDINGS: FLUID PRE-PROCEDURE There is posterior enhancement. The findings appear anechoic. There is no loculation. After informed consent, patient was prepped and draped in sterile manner. 2 present Xylocaine used as local anesthetic. A [place] drainage catheter was advanced into the peritoneal cavity, and straw-colored serous fluid was returned. Suction was hooked to the drainage catheter and approximately 7000 mL of straw-colored serous fluid obtained. FLUID POST-PROCEDURE Amount of fluid drained: 7000 ml. Patient tolerated the procedure well with no immediate complications and was discharged home in stable condition US/Paracentesis with US IMPRESSION: Successful ultrasound-guided paracentesis Electronically Signed: Amado Orozco MD at 10:56 EDT , Service support ,
[2018-12-09 08:47] VITALS: BP 107/68; BP 109/65; BP 113/56; BP 93/61; PULSE 72; PULSE 75; RESP 18; O2SAT 100; O2SAT 98; O2SAT 99
[2018-12-09 09:38] VITALS: BMI 20.1
--- NOTE | 2018-12-09 09:40 | NURSING ---
REVIEWED DC INSTRUCTIONS POST PARACENTESIS, PT HAS NO QUESTIONS, STATES THAT SHE IS FAMILIAR WITH POST CARE SHE HAS PROCEDURE WEEKLY.
[2018-12-09] MEDS: Albumin Human 25% (100 mL) 25 GM/100 ML BAG IV ×2 (09:51→11:23)
== END ==
LOC: US 07:18 → MEDOUTP 09:35
PROVIDERS: Referring Provider Internal Medicine Gastroenterology; Visit Provider Internal Medicine Gastroenterology
DX: K70.30 Alcoholic cirrhosis of liver without ascites (principal); R10.9 Unspecified abdominal pain; F50.89 Other specified eating disorder; R11.0 Nausea
CPT/HCPCS: 96365; 96366 ×3; 36415; 49083; 80053; 85025; 85610; P9047; A4216

== ENCOUNTER → 2018-12-16 08:14 | Outpatient (CLI) | payer OTHER, SELFPAY ==
[2018-11-16 09:04] VITALS: BMI 21.4
[2018-12-09 09:38] VITALS: BMI 20.1
--- NOTE | 2018-12-16 08:16 | US_ITS ---
PROCEDURE: Ultrasound guided paracentesis. DATE OF EXAMINATION: December 16, 2018.. INDICATION: Female, 58 years old. Ascites. PHYSICIAN: Hernandez Eli M.D. TECHNIQUE: The risks, benefits, and alternatives to the procedure were explained to the patient. The specific risks of bleeding, infection, and damage to bowel were detailed and accepted. Witnessed informed consent was obtained. The abdomen was ultrasonographically surveyed. An appropriate pocket of fluid was identified at the right lower quadrant. The skin were cleaned and prepped in the usual sterile fashion. Using ultrasound guidance, the peritoneal cavity was accessed with a 5-Thai paracentesis needle/catheter system. The trocar was removed. A total of 7000 ml of brad-colored fluid were removed from the peritoneal cavity. The catheter was removed and a sterile dressing was applied. The procedure was well tolerated. US/Paracentesis with US IMPRESSION: Ultrasound guided paracentesis. Electronically Signed: Hernandez Eli, at 9:58 EDT , Service support ,
--- NOTE | 2018-12-16 09:10 | NURSING ---
PT TO INFUSION SUITE VIA WC, ESCORTED BY [facility]. NO S/S OF DISTRESS AT TIME OF DC. REPORT CALLED TO INFUSION SUITE.
[2018-12-16 09:18] VITALS: BP 100/55; BP 103/63; BP 111/66; BP 126/83; PULSE 71; PULSE 72; PULSE 78; PULSE 80; RESP 18; O2SAT 100; O2SAT 96; O2SAT 97; O2SAT 98
[2018-12-16 09:23] VITALS: BP 116/60; PULSE 78; RESP 16; TEMP 36.8; O2SAT 100; BMI 20.1
[2018-12-16] MEDS: Albumin Human 25% (100 mL) 25 GM/100 ML BAG IV ×2 (09:31→11:04)
== END ==
LOC: US 08:15 → MEDOUTP 09:19
PROVIDERS: Referring Provider Internal Medicine Gastroenterology; Visit Provider Internal Medicine Gastroenterology
DX: K74.60 Unspecified cirrhosis of liver (principal)
CPT/HCPCS: 96365; 96366 ×3; 49083; P9047; A4216

== ENCOUNTER → 2018-12-23 08:12 | Outpatient (CLI) | payer OTHER, SELFPAY ==
[2018-11-16 09:04] VITALS: BMI 21.4
[2018-12-16 09:23] VITALS: BMI 20.1
--- NOTE | 2018-12-23 08:14 | US_ITS ---
PROCEDURE: Ultrasound guided paracentesis. DATE OF EXAMINATION: December 23, 2018. INDICATION: Female, 58 years old. Ascites. PHYSICIAN: Hernandez Eli M.D. TECHNIQUE: The risks, benefits, and alternatives to the procedure were explained to the patient. The specific risks of bleeding, infection, and damage to bowel were detailed and accepted. Witnessed informed consent was obtained. The abdomen was ultrasonographically surveyed. An appropriate pocket of fluid was identified at the right lower quadrant. The skin were cleaned and prepped in the usual sterile fashion. Using ultrasound guidance, the peritoneal cavity was accessed with a 5-Kiswahili paracentesis needle/catheter system. The trocar was removed. A total of 5000 ml of brad-colored fluid were removed from the peritoneal cavity. The catheter was removed and a sterile dressing was applied. The procedure was well tolerated. US/Paracentesis with US IMPRESSION: Ultrasound guided paracentesis. Electronically Signed: Hernandez Eli, at 9:40 EDT , Service support ,
[2018-12-23 09:17] VITALS: BP 121/61; PULSE 71; RESP 16; TEMP 36.4; O2SAT 100; BMI 19.2
[2018-12-23] MEDS: Albumin Human 25% (100 mL) 25 GM/100 ML BAG IV ×2 (09:34→11:03)
[2018-12-23 09:37] VITALS: BP 104/62; BP 108/67; BP 110/60; PULSE 79; PULSE 81; PULSE 88; RESP 16; O2SAT 97; O2SAT 99
== END ==
LOC: US 08:12 → MEDOUTP 09:12
PROVIDERS: Referring Provider Internal Medicine Gastroenterology; Visit Provider Internal Medicine Gastroenterology
DX: K74.60 Unspecified cirrhosis of liver (principal)
CPT/HCPCS: 96365; 96366 ×3; 49083; P9047; A4216

== ENCOUNTER → 2018-12-30 08:17 | Outpatient (CLI) | payer OTHER, SELFPAY ==
[2018-12-09 09:38] VITALS: BMI 20.1
[2018-12-23 09:17] VITALS: BMI 19.2
--- NOTE | 2018-12-30 08:19 | US_ITS ---
PROCEDURE: Ultrasound guided paracentesis. DATE OF EXAMINATION: December 30, 2018. INDICATION: Female, 58 years old. Ascites. PHYSICIAN: Hernandez Eli M.D. TECHNIQUE: The risks, benefits, and alternatives to the procedure were explained to the patient. The specific risks of bleeding, infection, and damage to bowel were detailed and accepted. Witnessed informed consent was obtained. The abdomen was ultrasonographically surveyed. An appropriate pocket of fluid was identified at the right lower quadrant. The skin were cleaned and prepped in the usual sterile fashion. Using ultrasound guidance, the peritoneal cavity was accessed with a 5-Slovenian paracentesis needle/catheter system. The trocar was removed. A total of 4850 ml of brad-colored fluid were removed from the peritoneal cavity. The catheter was removed and a sterile dressing was applied. The procedure was well tolerated. US/Paracentesis with US IMPRESSION: Ultrasound guided paracentesis. Electronically Signed: Hernandez Eli, at 11:10 EDT , Service support ,
[2018-12-30 09:35] VITALS: BP 137/82; PULSE 103; RESP 16; TEMP 36.7; BMI 20.1
[2018-12-30] MEDS: Albumin Human 25% (100 mL) 25 GM/100 ML BAG IV ×2 (09:48→11:18)
== END ==
LOC: US 08:17 → MEDOUTP 09:27
PROVIDERS: Referring Provider Internal Medicine Gastroenterology; Visit Provider Internal Medicine Gastroenterology
DX: K74.60 Unspecified cirrhosis of liver (principal)
CPT/HCPCS: 96365; 96366 ×3; 49083; P9047

== ENCOUNTER → 2019-01-06 08:15 | Outpatient (CLI) | payer OTHER, SELFPAY ==
[2018-12-09 09:38] VITALS: BMI 20.1
[2018-12-30 09:35] VITALS: BMI 20.1
--- NOTE | 2019-01-06 08:17 | US_ITS ---
PROCEDURE: ULTRASOUND GUIDED PARACENTESIS. DATE OF EXAMINATION: 01/06/2019. INDICATION: Ascites. PHYSICIAN: Dr. Moreno Fajardo M.D. The risks, benefits, and alternatives to the procedure were explained to the patient. The specific risks of bleeding, infection, and damage to bowel were detailed and accepted. Witnessed informed consent was obtained. The abdomen was ultrasonographically surveyed. An appropriate pocket of fluid was identified at the right lower quadrant. The skin were cleaned and prepped in the usual sterile fashion. Using ultrasound guidance, the peritoneal cavity was accessed with a 5-Canadian paracentesis needle/catheter system. The trocar was removed. A total of 6350 ml of clear ascites fluid were removed from the peritoneal cavity. The catheter was removed and a sterile dressing was applied. The procedure was well tolerated. US/Paracentesis with US IMPRESSION: Successful sonographic guided paracentesis. Electronically Signed: Moreno Fajardo MD at 14:17 EDT Tel [phone], Service support ,
[2019-01-06 09:06] VITALS: BP 105/59; BP 109/81; BP 116/70; BP 117/75; BP 120/80; BP 125/70; BP 96/59; PULSE 82; PULSE 83; PULSE 87; PULSE 88; PULSE 91; RESP 18; O2SAT 100; O2SAT 95; O2SAT 97; O2SAT 98; O2SAT 99
[2019-01-06 09:18] VITALS: BP 104/57; PULSE 83; RESP 16; TEMP 36.8; O2SAT 99; BMI 20.1
[2019-01-06] MEDS: Albumin Human 25% (100 mL) 25 GM/100 ML BAG IV ×2 (09:23→10:55)
== END ==
LOC: US 08:15 → MEDOUTP 09:08
PROVIDERS: Referring Provider Internal Medicine Gastroenterology; Visit Provider Internal Medicine Gastroenterology
DX: K74.60 Unspecified cirrhosis of liver (principal)
CPT/HCPCS: 96365; 96366 ×3; 49083; P9047; A4216

== ENCOUNTER → 2019-01-13 07:25 | Outpatient (CLI) | payer OTHER, SELFPAY ==
[2018-12-09 09:38] VITALS: BMI 20.1
[2019-01-06 09:18] VITALS: BMI 20.1
[2019-01-13 07:49] LABS: International Normalized Ratio 1.3; Prothrombin Time (Protime)PT. 16.4 SECONDS (11.7-14.9)
[2019-01-13 08:11] LABS: Partial Thromboplast Time 34.5 Seconds (24.1-36.2)
--- NOTE | 2019-01-13 08:22 | US_ITS ---
PROCEDURE: Ultrasound guided paracentesis. DATE OF EXAMINATION: January 13, 2019.. INDICATION: Female, 58 years old. Ascites. PHYSICIAN: Hernandez Eli M.D. TECHNIQUE: The risks, benefits, and alternatives to the procedure were explained to the patient. The specific risks of bleeding, infection, and damage to bowel were detailed and accepted. Witnessed informed consent was obtained. The abdomen was ultrasonographically surveyed. An appropriate pocket of fluid was identified at the right lower quadrant. The skin were cleaned and prepped in the usual sterile fashion. Using ultrasound guidance, the peritoneal cavity was accessed with a 5-Belgian paracentesis needle/catheter system. The trocar was removed. A total of 8000 ml of brad-colored fluid were removed from the peritoneal cavity. The catheter was removed and a sterile dressing was applied. The procedure was well tolerated. US/Paracentesis with US IMPRESSION: Ultrasound guided paracentesis. Electronically Signed: Hernandez Eli, at 10:02 EDT , Service support ,
[2019-01-13 08:38] VITALS: BP 112/67; BP 115/67; BP 121/75; BP 131/79; PULSE 78; PULSE 79; PULSE 80; PULSE 82; RESP 16; RESP 18; O2SAT 100; O2SAT 99
[2019-01-13 09:32] VITALS: BMI 20.1
[2019-01-13] MEDS: Albumin Human 25% (100 mL) 25 GM/100 ML BAG IV ×2 (10:06→11:37)
== END ==
LOC: US 07:27 → MEDOUTP 09:28
PROVIDERS: Referring Provider Internal Medicine Gastroenterology; Visit Provider Internal Medicine Gastroenterology
DX: K74.60 Unspecified cirrhosis of liver (principal)
CPT/HCPCS: 96365; 96366; 36415; 49083; 85610; 85730; P9047; A4216

== ENCOUNTER → 2019-01-20 07:53 | Outpatient (CLI) | payer OTHER, SELFPAY ==
[2019-01-13 09:32] VITALS: BMI 20.1
--- NOTE | 2019-01-20 08:00 | US_ITS ---
PROCEDURE: Ultrasound guided paracentesis. DATE OF EXAMINATION: January 20, 2019.. INDICATION: Female, 58 years old. Ascites. PHYSICIAN: Hernandez Eli M.D. TECHNIQUE: The risks, benefits, and alternatives to the procedure were explained to the patient. The specific risks of bleeding, infection, and damage to bowel were detailed and accepted. Witnessed informed consent was obtained. The abdomen was ultrasonographically surveyed. An appropriate pocket of fluid was identified at the right lower quadrant. The skin were cleaned and prepped in the usual sterile fashion. Using ultrasound guidance, the peritoneal cavity was accessed with a 5-Micronesian paracentesis needle/catheter system. The trocar was removed. A total of 7100 ml of brad-colored fluid were removed from the peritoneal cavity. The catheter was removed and a sterile dressing was applied. The procedure was well tolerated. US/Paracentesis with US IMPRESSION: Ultrasound guided paracentesis. Electronically Signed: Hernandez Eli, at 10:10 EDT , Service support ,
[2019-01-20 08:30] VITALS: BP 110/68; BP 113/65; BP 119/68; PULSE 68; PULSE 71; PULSE 75; RESP 16; RESP 18; O2SAT 100; O2SAT 97; O2SAT 98
[2019-01-20 09:24] VITALS: BP 98/58; PULSE 73; RESP 16; TEMP 36.9; O2SAT 100; BMI 19.2
[2019-01-20] MEDS: Albumin Human 25% (100 mL) 25 GM/100 ML BAG IV ×2 (09:55→11:18)
== END ==
LOC: US 07:53 → MEDOUTP 09:10
PROVIDERS: Referring Provider Internal Medicine Gastroenterology; Visit Provider Internal Medicine Gastroenterology
DX: K74.60 Unspecified cirrhosis of liver (principal)
CPT/HCPCS: 96365; 96366 ×2; 49083; P9047; A4216

== ENCOUNTER → 2019-01-27 08:48 | Outpatient (CLI) | payer OTHER, SELFPAY ==
[2019-01-13 09:32] VITALS: BMI 20.1
[2019-01-20 09:24] VITALS: BMI 19.2
--- NOTE | 2019-01-27 08:52 | US_ITS ---
PROCEDURE: Ultrasound guided paracentesis. DATE OF EXAMINATION: January 27, 2019. INDICATION: Female, 58 years old. Ascites. PHYSICIAN: Hernandez Eli M.D. TECHNIQUE: The risks, benefits, and alternatives to the procedure were explained to the patient. The specific risks of bleeding, infection, and damage to bowel were detailed and accepted. Witnessed informed consent was obtained. The abdomen was ultrasonographically surveyed. An appropriate pocket of fluid was identified at the right lower quadrant. The skin were cleaned and prepped in the usual sterile fashion. Using ultrasound guidance, the peritoneal cavity was accessed with a 5-Albanian paracentesis needle/catheter system. The trocar was removed. A total of 8050 ml of brad-colored fluid were removed from the peritoneal cavity. The catheter was removed and a sterile dressing was applied. The procedure was well tolerated. US/Paracentesis with US IMPRESSION: Ultrasound guided paracentesis. Electronically Signed: Hernandez Eli, at 10:53 EDT , Service support ,
[2019-01-27 09:13] VITALS: BP 103/58; BP 105/60; BP 107/62; BP 114/69; BP 121/79; BP 122/79; BP 128/84; BP 132/78; PULSE 75; PULSE 77; PULSE 78; PULSE 79; PULSE 80; PULSE 84; PULSE 85; RESP 16; RESP 18; O2SAT 100; O2SAT 96; O2SAT 97; O2SAT 98; O2SAT 99
[2019-01-27 10:10] VITALS: BP 112/66; PULSE 71; RESP 16; TEMP 36; O2SAT 100; BMI 20.1
[2019-01-27] MEDS: Albumin Human 25% (100 mL) 25 GM/100 ML BAG IV ×2 (10:28→12:00)
== END ==
LOC: US 08:49 → MEDOUTP 10:07
PROVIDERS: Referring Provider Internal Medicine Gastroenterology; Visit Provider Internal Medicine Gastroenterology
DX: K74.60 Unspecified cirrhosis of liver (principal)
CPT/HCPCS: 96365; 96366 ×2; 49083; P9047; A4216

== ENCOUNTER → 2019-02-03 08:16 | Outpatient (CLI) | payer OTHER, SELFPAY ==
[2019-01-13 09:32] VITALS: BMI 20.1
[2019-01-27 10:10] VITALS: BMI 20.1
--- NOTE | 2019-02-03 08:20 | US_ITS ---
PROCEDURE: Ultrasound guided paracentesis. DATE OF EXAMINATION: February 03, 2019. INDICATION: Female, 58 years old. Ascites. PHYSICIAN: Hernandez Eli M.D. TECHNIQUE: The risks, benefits, and alternatives to the procedure were explained to the patient. The specific risks of bleeding, infection, and damage to bowel were detailed and accepted. Witnessed informed consent was obtained. The abdomen was ultrasonographically surveyed. An appropriate pocket of fluid was identified at the right lower quadrant. The skin were cleaned and prepped in the usual sterile fashion. Using ultrasound guidance, the peritoneal cavity was accessed with a 5-Thai paracentesis needle/catheter system. The trocar was removed. A total of 7650 ml of brad-colored fluid were removed from the peritoneal cavity. The catheter was removed and a sterile dressing was applied. The procedure was well tolerated. US/Paracentesis with US IMPRESSION: Ultrasound guided paracentesis. Electronically Signed: Hernandez Eli, at 10:57 EDT , Service support ,
[2019-02-03 09:32] VITALS: BP 128/69; PULSE 77; RESP 16; TEMP 36.7; O2SAT 98; BMI 20.1
[2019-02-03 09:39] VITALS: BP 122/68; BP 131/75; BP 132/93; PULSE 74; PULSE 79; PULSE 83; RESP 16; O2SAT 100; O2SAT 98
[2019-02-03] MEDS: Albumin Human 25% (100 mL) 25 GM/100 ML BAG IV ×2 (09:53→11:23)
== END ==
LOC: US 09:02 → MEDOUTP 09:27
PROVIDERS: Referring Provider Internal Medicine Gastroenterology; Visit Provider Internal Medicine Gastroenterology
DX: Z01.812 Encounter for preprocedural laboratory examination (principal); K74.60 Unspecified cirrhosis of liver
CPT/HCPCS: 96365; 96366 ×3; 49083; P9047; A4216

== ENCOUNTER → 2019-02-09 09:22 | Outpatient (CLI) | payer OTHER, SELFPAY ==
[2019-01-13 09:32] VITALS: BMI 20.1
[2019-02-03 09:32] VITALS: BMI 20.1
--- NOTE | 2019-02-09 09:24 | US_ITS ---
PROCEDURE: Ultrasound guided paracentesis. DATE OF EXAMINATION: February 09, 2019. INDICATION: Female, 58 years old. Ascites. PHYSICIAN: Hernandez Eli M.D. TECHNIQUE: The risks, benefits, and alternatives to the procedure were explained to the patient. The specific risks of bleeding, infection, and damage to bowel were detailed and accepted. Witnessed informed consent was obtained. The abdomen was ultrasonographically surveyed. An appropriate pocket of fluid was identified at the right lower quadrant. The skin were cleaned and prepped in the usual sterile fashion. Using ultrasound guidance, the peritoneal cavity was accessed with a 5-Comoran paracentesis needle/catheter system. The trocar was removed. A total of 5750 ml of brad-colored fluid were removed from the peritoneal cavity. The catheter was removed and a sterile dressing was applied. The procedure was well tolerated. US/Paracentesis with US IMPRESSION: Ultrasound guided paracentesis. Electronically Signed: Hernandez Eli, at 10:55 EDT , Service support ,
[2019-02-09 09:47] VITALS: BP 116/73; BP 120/66; BP 120/75; BP 129/67; BP 130/74; PULSE 77; PULSE 78; PULSE 81; PULSE 83; RESP 16; RESP 18; O2SAT 100; O2SAT 99
[2019-02-09 10:47] VITALS: BP 137/70; PULSE 79; RESP 16; TEMP 36.7; O2SAT 98; BMI 20.1
[2019-02-09] MEDS: Albumin Human 25% (100 mL) 25 GM/100 ML BAG IV ×2 (10:56→12:23)
[2019-02-09 14:26] VITALS: BP 105/56
== END ==
LOC: US 09:22 → MEDOUTP 10:33
PROVIDERS: Referring Provider Internal Medicine Gastroenterology; Visit Provider Internal Medicine Gastroenterology
DX: K74.60 Unspecified cirrhosis of liver (principal)
CPT/HCPCS: 96365; 96366 ×3; 49083; P9047; A4216

== ENCOUNTER → 2019-02-17 07:12 | Outpatient (CLI) | payer OTHER, SELFPAY ==
[2019-01-13 09:32] VITALS: BMI 20.1
[2019-02-09 10:47] VITALS: BMI 20.1
[2019-02-17 07:23] LABS: Hematocrit 35.1 % (37-47); Hemoglobin 11.2 g/dL (12.0-15.0); Mean Corp Hgb Conc 31.9 g/dL (32-36); Mean Corpuscular Hgb 30.6 pg (27.0-32.0); Mean Corpuscular Volume 95.9 fL (81-99); Mean Platelet Vol. 9.5 fl (6.2-12.0); Platelet Count 139 K/mm3 (150-450); RBC Distribution Width CV 15.7 % (11.6-14.6); RBC Distribution Width SD 55.8 fl (35.1-43.9); Red Blood Count 3.66 M/mm3 (4.2-5.4); White Blood Count 7.5 K/mm3 (4.4-11.0)
[2019-02-17 07:36] LABS: International Normalized Ratio 1.4; Prothrombin Time (Protime)PT. 16.8 SECONDS (11.7-14.9)
[2019-02-17 07:37] LABS: Partial Thromboplast Time 35.2 Seconds (24.1-36.2)
[2019-02-17 07:47] LABS: Albumin, Serum 2.9 g/dL (3.2-5.0); BUN 30 mg/dL (7-18); Chloride 111 mmol/L (98-107); Creatinine, Serum 1.76 mg/dL (0.55-1.02); EST Glomerular Filtration Rate 32 mL/min (>60); Est Glom Filt Rate - Afr Amer 38 mL/min (>60); Glucose 102 mg/dL (74-106); Phosphorus 3.9 mg/dL (2.5-4.9); Potassium 3.8 mmol/L (3.5-5.1); Sodium Level 142 mmol/L (136-145)
--- NOTE | 2019-02-17 08:12 | US_ITS ---
PROCEDURE: Ultrasound guided paracentesis. DATE OF EXAMINATION: February 17, 2019. INDICATION: Female, 58 years old. Ascites. PHYSICIAN: Hernandez Eli M.D. TECHNIQUE: The risks, benefits, and alternatives to the procedure were explained to the patient. The specific risks of bleeding, infection, and damage to bowel were detailed and accepted. Witnessed informed consent was obtained. The abdomen was ultrasonographically surveyed. An appropriate pocket of fluid was identified at the right lower quadrant. The skin were cleaned and prepped in the usual sterile fashion. Using ultrasound guidance, the peritoneal cavity was accessed with a 5-Thai paracentesis needle/catheter system. The trocar was removed. A total of 6750 ml of brad-colored fluid were removed from the peritoneal cavity. The catheter was removed and a sterile dressing was applied. The procedure was well tolerated. US/Paracentesis with US IMPRESSION: Ultrasound guided paracentesis. Electronically Signed: Hernandez Eli, at 10:31 EDT , Service support ,
[2019-02-17 08:25] LABS: PTHIN 121.2 pg/mL (18.4-80.1)
[2019-02-17 09:05] VITALS: BP 117/70; BP 118/65; BP 118/69; BP 121/75; PULSE 68; PULSE 76; RESP 16; O2SAT 94
[2019-02-17 10:11] VITALS: BP 98/65; PULSE 74; RESP 18; TEMP 36.6; O2SAT 100; BMI 20.6
[2019-02-17] MEDS: Albumin Human 25% (100 mL) 25 GM/100 ML BAG IV ×2 (10:28→11:54)
== END ==
LOC: US 07:12 → MEDOUTP 09:55
PROVIDERS: Referring Provider Internal Medicine Gastroenterology; Visit Provider Internal Medicine Gastroenterology
DX: K74.60 Unspecified cirrhosis of liver (principal); N18.4 Chronic kidney disease, stage 4 (severe); D64.9 Anemia, unspecified
CPT/HCPCS: 96365; 96366 ×2; 36415; 49083; 80069; 83970; 85027; 85610; 85730; P9047; A4216

== ENCOUNTER → 2019-02-24 08:15 | Outpatient (CLI) | payer OTHER, SELFPAY ==
[2019-01-13 09:32] VITALS: BMI 20.1
[2019-02-17 10:11] VITALS: BMI 20.6
--- NOTE | 2019-02-24 08:16 | US_ITS ---
PROCEDURE: ULTRASOUND GUIDED PARACENTESIS CLINICAL HISTORY: Female, 58 years old. Recurrent ascites CONSENT: Yes Time-Out Called: Yes. Consent form signed: Yes. PT-PTT Levels Checked: Yes. SEDATION: None TECHNIQUE: Needle was inserted into the abdominal cavity with ultrasound guidance FINDINGS: FLUID PRE-PROCEDURE 6700 cc of brad-colored fluid was aspirated from the abdominal cavity during this paracentesis. After the procedure the patient was sent for albumin infusion FLUID POST-PROCEDURE No significant residual amount of fluid was noted post paracentesis US/Paracentesis with US IMPRESSION: 6700 cc of ascites was aspirated during this paracentesis. Electronically Signed: Miko French, at 14:31 EDT Tel , Service support ,
[2019-02-24 08:41] VITALS: BP 100/72; BP 100/76; BP 90/60; PULSE 159; PULSE 166; PULSE 168; RESP 168; RESP 18; O2SAT 98; O2SAT 99
[2019-02-24 12:09] VITALS: BP 93/51; PULSE 73; RESP 16; TEMP 36.4; O2SAT 100; BMI 20.6
[2019-02-24] MEDS: Albumin Human 25% (100 mL) 25 GM/100 ML BAG IV ×2 (12:57→14:23)
== END ==
LOC: US 09:51 → MEDOUTP 12:02
PROVIDERS: Referring Provider Internal Medicine Gastroenterology; Visit Provider Internal Medicine Gastroenterology
DX: K74.60 Unspecified cirrhosis of liver (principal)
CPT/HCPCS: 96365; 96366 ×3; 49083; P9047; A4216

== ENCOUNTER 2019-02-24 09:21 | Emergency (ER) | payer OTHER, SELFPAY ==
[2019-02-17 10:11] VITALS: BMI 20.6
[2019-02-24 09:22] VITALS: BP 100/74; PULSE 160; RESP 18; TEMP 36.4; O2SAT 100; BMI 21.8
--- NOTE | 2019-02-24 09:41 | EKG12_ITS ---
Test Reason : POST-CARDIOVERSION Blood Pressure : / mmHG Vent. Rate : 072 BPM Atrial Rate : 072 BPM P-R Int : 164 ms QRS Dur : 080 ms QT Int : 380 ms P-R-T Axes : 073 079 062 degrees QTc Int : 416 ms Normal sinus rhythm Low voltage QRS Borderline ECG Confirmed by EMIL BABCOCK, OLIMPIA ([id number]), image editor FILI OROZCO ([id number]) on 03/01/2019 9:39:58 A M Referred By: Alberto Aguirre Confirmed By:ELMA STEIN MD
--- NOTE | 2019-02-24 09:43 | ED.VISSUMM ---
- ER Visit Summary Date of Service: 02/24/19 Chief Complaint: Palpitations History of Present Illness: The patient is a 58 F who presents with palpitations that have been intermittent for the past month. Patient states she feels like her heart is racing. Patient states these are worse when she lays down. Patient states that she had one episode last night the last approximately 5 to 10 minutes. Patient states she went for her paracentesis today and her heart has been racing since that time. Patient states she had over 6 L of fluid drained. Patient denies any chest pain. Patient has a history of COPD and admits to constant shortness of breath. Patient states she did have one episode of nausea and vomiting today. Patient denies any headaches, lightheadedness, or dizziness. Physical Examination: Vital signs are stable except for tachycardia of 160. Patient is afebrile. Patient is in no acute distress. Oral mucosa is pink and moist. Neck is supple. Trachea is midline. There is no JVD noted. Heart was regular and tachycardic. Lungs were clear and equal bilaterally. Abdomen is soft. Bowel sounds are normal. There is no tenderness. Cranial nerves II through XII are intact. There are no focal motor or sensory deficits noted. Test Results: EKG showed supraventricular tachycardia with a rate of 152. There are no acute ST or T wave changes noted. Other than the supraventricular rhythm and rate, there are no changes compared to previous EKG dated 10/14/2018. CBC showed a mild anemia with a hemoglobin of 11.3 and hematocrit 35.3. BUN and creatinine were slightly elevated at 29 and 1.9. These were consistent with prior results. Troponin was slightly elevated at 0.069. This was only slightly elevated compared to previous results. PA and lateral chest x-ray was obtained. There is no acute cardiopulmonary process. Repeat EKG after adenosine showed normal sinus rhythm with a rate of 72. There are no acute ST or T wave changes. Emergency Department Course and Treatment: Patient was given 6 milligrams of adenosine here. Patient converted to normal sinus rhythm. Patient was given IV fluid bolus here. Patient was feeling better on reevaluation. Patient wants to go home. Patient was instructed to follow-up with her primary care physician in 5 to 7 days. Patient understood and was agreeable with the plan. All questions were answered. Disposition: Discharge home Impression: 1. Supraventricular tachycardia, resolved This note was generated with Airwoot dictation software. It may contain incorrect words, spelling, and punctuation that were not noted in review of the chart prior to signing ED Disposition - Plan for ED Patient: Disposition: Home or Assisted Living Diagnosis: Supraventricular tachycardia Instructions: Ashleigh (P.A.T.) Referrals: [facility] Shelia,Katharine Handy [Primary Care Provider] - 3-5 Days
[2019-02-24 09:47] LABS: Absolute Lymphocyte Count 1.97 X10^3/uL (0.83-4.51); Absolute Neutrophil Count 4.6 X10^3/uL (2.0-7.7); Basophil# 0.04 X10^3/uL; Basophil% 0.5 % (0-1); Eosinophil# 0.44 X10^3/uL; Eosinophils% 5.8 % (0-5); Hematocrit 35.3 % (37-47); Hemoglobin 11.3 g/dL (12.0-15.0); Lymphocyte # 1.97 X10^3/ul (4.0); Lymphocyte % 25.9 % (19-41); Mean Corpuscular Hgb 30.7 pg (27.0-32.0); Mean Corpuscular Volume 95.9 fL (81-99); Monocyte% 6.6 % (0-10); NRBC Flagged by Analyzer 0 % (0-5); Neutrophil # 4.63 X10^3/uL (2.7-7.7); Neutrophil % 60.9 % (47-70); Platelet Count 154 K/mm3 (150-450); RBC Distribution Width CV 15.6 % (11.6-14.6); RBC Distribution Width SD 55.6 fl (35.1-43.9); Red Blood Count 3.68 M/mm3 (4.2-5.4); White Blood Count 7.6 K/mm3 (4.4-11.0)
--- NOTE | 2019-02-24 09:48 | RAD_ITS ---
STUDY: X-RAY CHEST REASON FOR EXAM: Female, 58 years old. Shortness of breath. Palpitations. TECHNIQUE: PA and lateral views of the chest. COMPARISON: July 04, 2018. FINDINGS: Cardiac silhouette unremarkable. Pulmonary vascularity unremarkable. Aorta calcified. No focal patchy airspace opacities. No pleural effusions. Slightly coarse lung markings/COPD. Minimal scarring. Upper abdomen unremarkable. Osseous structures intact. No pneumothorax. Surgical clips at the left upper extremity. RAD/Chest PA and Lateral IMPRESSION: No acute cardiopulmonary findings Electronically Signed: Aydin Chavez DO at 10:05 EDT Tel , Service support ,
[2019-02-24 10:00] VITALS: PULSE 150
[2019-02-24] MEDS: Adenosine 6 MG/2 ML Syringe IV (10:00)
[2019-02-24 10:01] LABS: Anion Gap 8 (5-15); BUN 29 mg/dL (7-18); BUN/Creat Ratio 15.3 RATIO (10-20); Chloride 109 mmol/L (98-107); EST Glomerular Filtration Rate 29 mL/min (>60); Est Glom Filt Rate - Afr Amer 35 mL/min (>60); Estimated Creatinine Clearance 25.84 ml/min; Glucose 173 mg/dL (74-106); Potassium 3.9 mmol/L (3.5-5.1); Sodium Level 140 mmol/L (136-145)
[2019-02-24 10:03] VITALS: PULSE 72
--- NOTE | 2019-02-24 10:03 | EKG12_ITS ---
Test Reason : PALPS Blood Pressure : / mmHG Vent. Rate : 152 BPM Atrial Rate : 136 BPM P-R Int : 000 ms QRS Dur : 088 ms QT Int : 282 ms P-R-T Axes : 000 088 010 degrees QTc Int : 448 ms Supraventricular tachycardia Low voltage QRS Borderline ECG Confirmed by EMIL BABCOCK, OLIMPIA ([id number]), index editor FILI OROZCO ([id number]) on 03/01/2019 9:40:18 A M Referred By: Alberto Aguirre Confirmed By:ELMA STEIN MD
[2019-02-24 11:51] VITALS: BP 92/57; PULSE 70; RESP 24; O2SAT 100
== END 2019-02-24 11:52 | disposition home or self-care (01) ==
PROVIDERS: Emergency Provider Emergency Medicine
DX: I47.1 Supraventricular tachycardia (principal); R74.8 Abnormal levels of other serum enzymes; J44.9 Chronic obstructive pulmonary disease, unspecified; N18.6 End stage renal disease; E03.9 Hypothyroidism, unspecified; D64.9 Anemia, unspecified; R11.2 Nausea with vomiting, unspecified; M54.2 Cervicalgia; R05 Cough; Z72.0 Tobacco use
CPT/HCPCS: 71046; 80048; 84484; 85025; 93005; 96374; 99285; J7030; A4216; J0153

== ENCOUNTER → 2019-03-03 08:18 | Outpatient (CLI) | payer OTHER, SELFPAY ==
[2019-01-13 09:32] VITALS: BMI 20.1
[2019-02-24 12:09] VITALS: BMI 20.6
--- NOTE | 2019-03-03 08:20 | US_ITS ---
PROCEDURE: Ultrasound guided paracentesis. DATE OF EXAMINATION: March 03, 2019. INDICATION: Female, 58 years old. Ascites. PHYSICIAN: Hernandez Eli M.D. TECHNIQUE: The risks, benefits, and alternatives to the procedure were explained to the patient. The specific risks of bleeding, infection, and damage to bowel were detailed and accepted. Witnessed informed consent was obtained. The abdomen was ultrasonographically surveyed. An appropriate pocket of fluid was identified at the right lower quadrant. The skin were cleaned and prepped in the usual sterile fashion. Using ultrasound guidance, the peritoneal cavity was accessed with a 5-Faroese paracentesis needle/catheter system. The trocar was removed. A total of 8200 ml of brad-colored fluid were removed from the peritoneal cavity. The catheter was removed and a sterile dressing was applied. The procedure was well tolerated. US/Paracentesis with US IMPRESSION: Ultrasound guided paracentesis. Electronically Signed: Hernandez Eli, at 9:36 EDT , Service support ,
[2019-03-03 08:38] VITALS: BP 122/70; BP 122/78; BP 126/88; BP 139/76; PULSE 78; PULSE 79; PULSE 82; PULSE 87; RESP 16; RESP 18; O2SAT 100; O2SAT 98; O2SAT 99
[2019-03-03 09:45] VITALS: BP 105/61; PULSE 80; RESP 16; O2SAT 100; BMI 20.6
[2019-03-03] MEDS: Albumin Human 25% (100 mL) 25 GM/100 ML BAG IV ×2 (09:45→11:15)
== END ==
LOC: US 08:18 → MEDOUTP 09:28
PROVIDERS: Referring Provider Internal Medicine Gastroenterology; Visit Provider Internal Medicine Gastroenterology
DX: R18.8 Other ascites (principal); K74.60 Unspecified cirrhosis of liver
CPT/HCPCS: 96365; 96366 ×3; 49083; P9047; A4216

== ENCOUNTER → 2019-03-10 08:12 | Outpatient (CLI) | payer OTHER, SELFPAY ==
[2019-01-13 09:32] VITALS: BMI 20.1
[2019-03-03 09:45] VITALS: BMI 20.6
--- NOTE | 2019-03-10 08:16 | US_ITS ---
PROCEDURE: Ultrasound guided paracentesis. DATE OF EXAMINATION: March 10, 2019. INDICATION: Female, 58 years old. Ascites. PHYSICIAN: Hernandez Eli M.D. TECHNIQUE: The risks, benefits, and alternatives to the procedure were explained to the patient. The specific risks of bleeding, infection, and damage to bowel were detailed and accepted. Witnessed informed consent was obtained. The abdomen was ultrasonographically surveyed. An appropriate pocket of fluid was identified at the left lower quadrant. The skin were cleaned and prepped in the usual sterile fashion. Using ultrasound guidance, the peritoneal cavity was accessed with a 5-Yakut paracentesis needle/catheter system. The trocar was removed. A total of 6950 ml of brad-colored fluid were removed from the peritoneal cavity. The catheter was removed and a sterile dressing was applied. The procedure was well tolerated. US/Paracentesis with US IMPRESSION: Ultrasound guided paracentesis. Electronically Signed: Hernandez Eli, at 10:02 EDT , Service support ,
[2019-03-10 08:50] VITALS: BP 106/58; BP 131/77; BP 134/74; PULSE 75; PULSE 76; PULSE 81; RESP 16; O2SAT 100
[2019-03-10 09:24] VITALS: BP 124/63; PULSE 72; RESP 16; TEMP 36.7; O2SAT 100; BMI 21.0
[2019-03-10] MEDS: Albumin Human 25% (100 mL) 25 GM/100 ML BAG IV ×2 (09:40→11:15)
== END ==
LOC: US 08:13 → MEDOUTP 09:17
PROVIDERS: Referring Provider Internal Medicine Gastroenterology; Visit Provider Internal Medicine Gastroenterology
DX: K74.60 Unspecified cirrhosis of liver (principal)
CPT/HCPCS: 96365; 96366 ×3; 49083; P9047; A4216

== ENCOUNTER → 2019-03-17 12:14 | Outpatient (CLI) | payer OTHER, SELFPAY ==
[2019-03-03 09:45] VITALS: BMI 20.6
[2019-03-13 10:15] VITALS: BMI 21.0
--- NOTE | 2019-03-17 12:16 | US_ITS ---
PROCEDURE: Ultrasound guided paracentesis. DATE OF EXAMINATION: March 17, 2019. INDICATION: Female, 58 years old. Ascites. PHYSICIAN: Hernandez Eli M.D. TECHNIQUE: The risks, benefits, and alternatives to the procedure were explained to the patient. The specific risks of bleeding, infection, and damage to bowel were detailed and accepted. Witnessed informed consent was obtained. The abdomen was ultrasonographically surveyed. An appropriate pocket of fluid was identified at the left lower quadrant. The skin were cleaned and prepped in the usual sterile fashion. Using ultrasound guidance, the peritoneal cavity was accessed with a 5-Polish paracentesis needle/catheter system. The trocar was removed. A total of 7550 ml of brad-colored fluid were removed from the peritoneal cavity. The catheter was removed and a sterile dressing was applied. The procedure was well tolerated. US/Paracentesis with US IMPRESSION: Ultrasound guided paracentesis. Electronically Signed: Hernandez Eli, at 13:28 EDT , Service support ,
[2019-03-17 12:32] VITALS: BP 130/68; BP 135/68; BP 136/61; PULSE 74; PULSE 76; PULSE 82; RESP 18; O2SAT 100
[2019-03-17 13:14] VITALS: BP 110/55; PULSE 70; RESP 16; TEMP 35.9; O2SAT 100; BMI 21.0
[2019-03-17] MEDS: Albumin Human 25% (100 mL) 25 GM/100 ML BAG IV ×2 (13:55→15:27)
== END ==
LOC: US 12:15 → MEDOUTP 13:11
PROVIDERS: Referring Provider Internal Medicine Gastroenterology; Visit Provider Internal Medicine Gastroenterology
DX: K74.60 Unspecified cirrhosis of liver (principal)
CPT/HCPCS: 96365; 96366 ×2; 49083; P9047; A4216

== ENCOUNTER 2019-03-22 14:16 | Outpatient (RCR) | payer OTHER, SELFPAY ==
[2018-10-15 09:42] VITALS: BMI 23.8
[2019-03-22 13:11] VITALS: BMI 22.8
[2019-03-22 14:54] LABS: Hematocrit 36.9 % (37-47); Hemoglobin 11.9 g/dL (12.0-15.0); Mean Corp Hgb Conc 32.2 g/dL (32-36); Mean Corpuscular Hgb 31.1 pg (27.0-32.0); Mean Corpuscular Volume 96.3 fL (81-99); Mean Platelet Vol. 10.1 fl (6.2-12.0); Platelet Count 167 K/mm3 (150-450); RBC Distribution Width CV 15.5 % (11.6-14.6); RBC Distribution Width SD 55.2 fl (35.1-43.9); Red Blood Count 3.83 M/mm3 (4.2-5.4); White Blood Count 7.7 K/mm3 (4.4-11.0)
[2019-03-22 15:05] LABS: International Normalized Ratio 1.5
[2019-03-22 15:27] LABS: ALB/GLOB Ratio 0.9 RATIO (0.9-2.4); AST(SGOT) 47 U/L (15-37); Alanine Aminotransfer ALT/SGPT 27 U/L (13-56); Albumin, Serum 3.1 g/dL (3.2-5.0); Alkaline Phosphatase 117 U/L (45-117); Anion Gap 8 (5-15); BUN 29 mg/dL (7-18); BUN/Creat Ratio 17.2 RATIO (10-20); Calcium,Total 8.2 mg/dL (8.5-10.1); Chloride 107 mmol/L (98-107); Creatinine, Serum 1.69 mg/dL (0.55-1.02); EST Glomerular Filtration Rate 33 mL/min (>60); Est Glom Filt Rate - Afr Amer 40 mL/min (>60); Globulin 3.6 g/dL (2.2-4.2); Glucose 99 mg/dL (74-106); Potassium 4.1 mmol/L (3.5-5.1); Protein, Total 6.7 g/dL (6.4-8.2); Sodium Level 138 mmol/L (136-145)
[2019-03-23 10:03] LABS: Absolute Lymphocyte Count 2.21 X10^3/uL (0.83-4.51); Absolute Neutrophil Count 4.7 X10^3/uL (2.0-7.7); Basophil# 0.08 X10^3/uL; Eosinophil# 0.48 X10^3/uL; Eosinophils% 5.9 % (0-5); Lymphocyte # 2.21 X10^3/ul (4.0); Lymphocyte % 27.4 % (19-41); Monocyte# 0.54 X10^3/uL; Monocyte% 6.7 % (0-10); NRBC Flagged by Analyzer 0 % (0-5); Neutrophil # 4.73 X10^3/uL (2.7-7.7); Neutrophil % 58.6 % (47-70)
[2019-03-24 14:45] LABS: Free T3 2.4 pg/mL (2.18-3.98); T4 Free Direct 1.26 ng/dL (0.76-1.46); Thyroid Stim Hormone (TSH) 3.76 uIU/mL (0.358-3.74)
== END 2019-03-22 18:00 | disposition home or self-care (01) ==
LOC: LAB 14:16
PROVIDERS: Referring Provider Internal Medicine Gastroenterology; Visit Provider Internal Medicine Gastroenterology
DX: K70.30 Alcoholic cirrhosis of liver without ascites (principal); R10.9 Unspecified abdominal pain; R11.0 Nausea; E03.9 Hypothyroidism, unspecified
CPT/HCPCS: 36415; 80053; 84439; 84443; 84481; 85025; 85027; 85610

== ENCOUNTER → 2019-03-24 08:08 | Outpatient (CLI) | payer OTHER, SELFPAY ==
[2019-03-03 09:45] VITALS: BMI 20.6
[2019-03-22 13:11] VITALS: BMI 22.8
--- NOTE | 2019-03-24 08:11 | US_ITS ---
PROCEDURE: Ultrasound guided paracentesis. DATE OF EXAMINATION: March 24, 2019. INDICATION: Female, 58 years old. Ascites. PHYSICIAN: Hernandez Eli M.D. TECHNIQUE: The risks, benefits, and alternatives to the procedure were explained to the patient. The specific risks of bleeding, infection, and damage to bowel were detailed and accepted. Witnessed informed consent was obtained. The abdomen was ultrasonographically surveyed. An appropriate pocket of fluid was identified at the left lower quadrant. The skin were cleaned and prepped in the usual sterile fashion. Using ultrasound guidance, the peritoneal cavity was accessed with a 5-Georgian paracentesis needle/catheter system. The trocar was removed. A total of 6100 ml of brad-colored fluid were removed from the peritoneal cavity. The catheter was removed and a sterile dressing was applied. The procedure was well tolerated. US/Paracentesis with US IMPRESSION: Ultrasound guided paracentesis. Electronically Signed: Hernandez Eli, at 9:52 EST , Service support ,
[2019-03-24 08:37] VITALS: BP 118/78; BP 136/73; BP 146/75; PULSE 83; PULSE 84; PULSE 86; RESP 16; RESP 18; O2SAT 98; O2SAT 99
[2019-03-24] MEDS: Albumin Human 25% (100 mL) 25 GM/100 ML BAG IV ×2 (09:30→11:01)
[2019-03-24 09:34] VITALS: BP 114/63; PULSE 71; RESP 18; TEMP 36.2; O2SAT 100; BMI 20.1
--- NOTE | 2019-03-27 15:39 | NURSING ---
During Follow Up Call ANJALI Carmona advised pt to be seen in ED. Pt reports consistent pain/tenderness at paracentesis site since Wednesday. Pt also states her fluid build up feels different and is a lot lower than normal Pt reports labial swelling that she has not had before. ANJALI Carmona stated You've had this procedure multiple times and have never had these symptoms, I think you should come in and be seen to make sure there isn't anything going on Pt states she will see how she feels tomorrow and potentially will come in and be seen.
== END ==
LOC: US 08:09 → MEDOUTP 09:12
PROVIDERS: Referring Provider Internal Medicine Gastroenterology; Visit Provider Internal Medicine Gastroenterology
DX: K74.60 Unspecified cirrhosis of liver (principal); R18.8 Other ascites; E03.9 Hypothyroidism, unspecified
CPT/HCPCS: 96365; 96366 ×3; 49083; P9047; A4216

== ENCOUNTER → 2019-03-31 08:08 | Outpatient (CLI) | payer OTHER, SELFPAY ==
[2019-03-03 09:45] VITALS: BMI 20.6
[2019-03-24 09:34] VITALS: BMI 20.1
--- NOTE | 2019-03-31 08:10 | US_ITS ---
PROCEDURE: Ultrasound guided paracentesis. DATE OF EXAMINATION: March 31, 2019. INDICATION: Female, 58 years old. Ascites. PHYSICIAN: Hernandez Eli M.D. TECHNIQUE: The risks, benefits, and alternatives to the procedure were explained to the patient. The specific risks of bleeding, infection, and damage to bowel were detailed and accepted. Witnessed informed consent was obtained. The abdomen was ultrasonographically surveyed. An appropriate pocket of fluid was identified at the right lower quadrant. The skin were cleaned and prepped in the usual sterile fashion. Using ultrasound guidance, the peritoneal cavity was accessed with a 5-Mexican paracentesis needle/catheter system. The trocar was removed. A total of 4450 ml of brad-colored fluid were removed from the peritoneal cavity. The catheter was removed and a sterile dressing was applied. The procedure was well tolerated. US/Paracentesis with US IMPRESSION: Ultrasound guided paracentesis. Electronically Signed: Hernandez Eli, at 9:51 EST , Service support ,
[2019-03-31 08:43] VITALS: BP 110/64; BP 124/71; BP 97/62; PULSE 69; PULSE 70; PULSE 74; RESP 14; RESP 16; O2SAT 95; O2SAT 99
[2019-03-31 09:18] VITALS: BP 106/81; PULSE 76; RESP 16; TEMP 36.4; O2SAT 98; BMI 20.1
[2019-03-31] MEDS: Albumin Human 25% (100 mL) 25 GM/100 ML BAG IV ×2 (09:37→10:56)
== END ==
LOC: US 08:09 → MEDOUTP 09:14
PROVIDERS: Referring Provider Internal Medicine Gastroenterology; Visit Provider Internal Medicine Gastroenterology
DX: K74.60 Unspecified cirrhosis of liver (principal); R18.8 Other ascites
CPT/HCPCS: 96365; 96366 ×2; 49083; P9047; A4216

== ENCOUNTER → 2019-04-04 07:39 | Outpatient (CLI) | payer OTHER, SELFPAY ==
[2019-03-22 13:11] VITALS: BMI 22.8
[2019-03-31 09:18] VITALS: BMI 20.1
--- NOTE | 2019-04-04 07:40 | CDU_ITS ---
Reason For Study: bruit Rt. Velocities/BP Lt. Velocities/BP Prox CCA 107.3/20.0 cm/sec. Prox CCA 133.9/26.1 cm/sec. Mid CCA 112.5/26.5 cm/sec. Mid CCA 110.1/27.9 cm/sec. Dist CCA 107.3/30.4 cm/sec. Dist CCA 110.1/24.3 cm/sec. Prox ICA 99.2/29.8 cm/sec. Prox ICA 128.4/33.4 cm/sec. Mid ICA 122.9/27.9 cm/sec. Mid ICA 130.2/33.4 cm/sec. Dist ICA 87.6/22.5 cm/sec. Dist ICA 66.3/20.6 cm/sec. Rt. ICA/CCA = 1.1. Lt. ICA/CCA = 1.2. Prox ECA 104.7/16.0 cm/sec. Prox ECA 86.4/17.0 cm/sec. Rt. Vert. 79.0/28.6 cm/sec. Lt. Vert. 55.3/5.8 cm/sec. Right Extracranial There is heterogeneous, irregular atherosclerotic plaque noted in the right common carotid artery. There is heterogeneous, irregular atherosclerotic plaque noted in the right internal carotid artery. There is heterogeneous, irregular atherosclerotic plaque noted in the right external carotid artery. Antegrade flow is noted in the right vertebral artery. Left Extracranial There is heterogeneous, irregular atherosclerotic plaque noted in the left common carotid artery. There is heterogeneous, irregular atherosclerotic plaque noted in the left internal carotid artery. There is homogeneous, smooth atherosclerotic plaque noted in the left external carotid artery. Antegrade flow is noted in the left vertebral artery. Procedure Carotid Duplex 51771. The exam was diagnostic. Exam performed in department. Interpretation Summary Irregular calcific plaque at the origin of the right internal and external carotid arteries <50% stenosis right internal carotid <50% stenosis right external carotid Calcific irregular plaque distal left common carotid and proximal internal carotid arteries 50-69% stenosis left internal carotid <50% stenosis left external carotid Patent, antegrade, <50% stenosis bilateral vertebrals Ordering Physician: Vishnu Enamorado Performed By: Ge Rosario RVT
== END ==
PROVIDERS: Referring Provider Specialist; Visit Provider Specialist
DX: R09.89 Other specified symptoms and signs involving the circulatory and respiratory systems (principal)
CPT/HCPCS: 93880

== ENCOUNTER → 2019-04-07 08:13 | Outpatient (CLI) | payer OTHER, SELFPAY ==
[2019-03-03 09:45] VITALS: BMI 20.6
[2019-04-05 12:55] VITALS: BMI 20.1
--- NOTE | 2019-04-07 08:14 | US_ITS ---
PROCEDURE: Ultrasound guided paracentesis. DATE OF EXAMINATION: April 07, 2019. INDICATION: Female, 58 years old. Ascites. PHYSICIAN: Hernandez Eli M.D. TECHNIQUE: The risks, benefits, and alternatives to the procedure were explained to the patient. The specific risks of bleeding, infection, and damage to bowel were detailed and accepted. Witnessed informed consent was obtained. The abdomen was ultrasonographically surveyed. An appropriate pocket of fluid was identified at the right lower quadrant. The skin were cleaned and prepped in the usual sterile fashion. Using ultrasound guidance, the peritoneal cavity was accessed with a 5-Citizen Of [place] paracentesis needle/catheter system. The trocar was removed. A total of 7450 ml of brad-colored fluid were removed from the peritoneal cavity. The catheter was removed and a sterile dressing was applied. The procedure was well tolerated. US/Paracentesis with US IMPRESSION: Ultrasound guided paracentesis. Electronically Signed: Hernandez Eli, at 10:29 EST , Service support ,
[2019-04-07 08:39] VITALS: BP 109/57; BP 109/62; BP 135/68; PULSE 68; PULSE 70; PULSE 71; RESP 16; O2SAT 98; O2SAT 99
[2019-04-07 09:15] VITALS: BP 113/60; PULSE 69; RESP 16; O2SAT 100
[2019-04-07 09:42] VITALS: BP 111/78; PULSE 91; RESP 18; TEMP 36.8; O2SAT 100; BMI 20.1
[2019-04-07] MEDS: ALBUMIN HUMAN IV (11:02)
== END ==
LOC: US 08:13 → MEDOUTP 09:29
PROVIDERS: Referring Provider Internal Medicine Gastroenterology; Visit Provider Internal Medicine Gastroenterology
DX: K74.60 Unspecified cirrhosis of liver (principal)
CPT/HCPCS: 96365; 96366 ×2; 49083; P9047; A4216

== ENCOUNTER → 2019-04-14 08:03 | Outpatient (CLI) | payer OTHER, SELFPAY ==
[2019-03-03 09:45] VITALS: BMI 20.6
[2019-04-07 09:42] VITALS: BMI 20.1
--- NOTE | 2019-04-14 08:04 | US_ITS ---
PROCEDURE: ULTRASOUND GUIDED PARACENTESIS CLINICAL HISTORY: Female, 58 years old. CONSENT: Yes Time-Out Called: Yes. Consent form signed: Yes. PT-PTT Levels Checked: Yes. SEDATION: No TECHNIQUE: FINDINGS: FLUID PRE-PROCEDURE Under ultrasound guidance and following appropriate antiseptic preparation and local anesthesia. A 6 Slovenian draining catheter was inserted in the right lower quadrant, clear yellow fluid aspirated. Approximately 6200 cc were drained. The patient tolerated the procedure well. US/Paracentesis with US IMPRESSION: Uneventful paracentesis. Electronically Signed: Boy Mendes, at 12:12 EST Tel , Service support ,
[2019-04-14 08:55] VITALS: BP 106/64; BP 106/67; BP 107/53; BP 137/73; PULSE 62; PULSE 66; PULSE 68; PULSE 69; RESP 14; RESP 16; O2SAT 10; O2SAT 97
[2019-04-14 09:56] VITALS: BP 137/60; PULSE 65; RESP 16; TEMP 36.3; O2SAT 100; BMI 21.0
[2019-04-14] MEDS: Albumin Human 25% (100 mL) 25 GM/100 ML BAG IV ×2 (10:04→11:31)
== END ==
LOC: US 08:03 → MEDOUTP 09:47
PROVIDERS: Referring Provider Internal Medicine Gastroenterology; Visit Provider Internal Medicine Gastroenterology
DX: K74.60 Unspecified cirrhosis of liver (principal)
CPT/HCPCS: 96365; 96366 ×2; 49083; P9047; A4216

== ENCOUNTER → 2019-04-17 12:34 | Outpatient (CLI) | payer OTHER, SELFPAY ==
[2018-10-25 11:07] VITALS: BMI 22.1
[2019-04-14 09:56] VITALS: BMI 21.0
--- NOTE | 2019-04-17 14:42 | PFTCOMP_ITS ---
COMPLETE PULMONARY FUNCTION TEST INTERPRETATION Brief HPI: Patient is a 58 year old female, currently under the care of Dr. Gonzalez, who presents to [facility] for complete pulmonary function tests secondary to diagnosis of COPD. Respiratory therapist reports good effort and reproducible results. Interpretation: Forced expiration spirometry shows no large airways obstructive ventilatory defect with an FEV1 of 106% predicted. There is no significant bronchodilator response by strict ATS criteria. Spirograms are of good quality and plateau normally. The respiratory flow volume loop shows a normal pattern. Lung volumes by body plethysmography show a normal total lung capacity at 4.63 L, 102% predicted. All other lung volumes are within normal limits. Diffusion capacity by carbon monoxide is normal at 85% predicted. The airway resistance is slightly elevated. Compared to previous pulmonary function tests from 03/24/2018, there is a significant improvement in DLCO by 22%. Impression: These pulmonary function tests are within normal limits and show improvement compared to 2018.
== END ==
PROVIDERS: Referring Provider Internal Medicine Critical Care Medicine; Visit Provider Internal Medicine Critical Care Medicine
DX: J44.9 Chronic obstructive pulmonary disease, unspecified (principal); F17.210 Nicotine dependence, cigarettes, uncomplicated
CPT/HCPCS: 94060; 94726; 94729

== ENCOUNTER → 2019-04-21 08:16 | Outpatient (CLI) | payer OTHER, SELFPAY ==
[2019-03-03 09:45] VITALS: BMI 20.6
[2019-04-14 09:56] VITALS: BMI 21.0
--- NOTE | 2019-04-21 08:18 | US_ITS ---
PROCEDURE: Ultrasound guided paracentesis. DATE OF EXAMINATION: April 21, 2019. INDICATION: Female, 58 years old. Ascites. PHYSICIAN: Hernandez Eli M.D. TECHNIQUE: The risks, benefits, and alternatives to the procedure were explained to the patient. The specific risks of bleeding, infection, and damage to bowel were detailed and accepted. Witnessed informed consent was obtained. The abdomen was ultrasonographically surveyed. An appropriate pocket of fluid was identified at the right lower quadrant. The skin were cleaned and prepped in the usual sterile fashion. Using ultrasound guidance, the peritoneal cavity was accessed with a 5-Kosovan paracentesis needle/catheter system. The trocar was removed. A total of 5900 ml of brad-colored fluid were removed from the peritoneal cavity. The catheter was removed and a sterile dressing was applied. The procedure was well tolerated. US/Paracentesis with US IMPRESSION: Ultrasound guided paracentesis. Electronically Signed: Hernandez Eli, at 10:12 EST , Service support ,
[2019-04-21 08:29] VITALS: BP 102/56; BP 107/68; BP 95/52; BP 96/66; PULSE 66; PULSE 67; PULSE 70; RESP 16; RESP 18; O2SAT 100; O2SAT 98; O2SAT 99
[2019-04-21 09:17] VITALS: BP 97/56; PULSE 65; RESP 18; TEMP 35.8; O2SAT 95; BMI 21.0
[2019-04-21] MEDS: Albumin Human 25% (100 mL) 25 GM/100 ML BAG IV ×2 (09:57→11:26)
== END ==
LOC: US 08:16 → MEDOUTP 09:15
PROVIDERS: Referring Provider Internal Medicine Gastroenterology; Visit Provider Internal Medicine Gastroenterology
DX: K74.60 Unspecified cirrhosis of liver (principal); R18.8 Other ascites
CPT/HCPCS: 96365; 96366 ×3; 36430; 49083; P9047; A4216

== ENCOUNTER → 2019-04-27 14:26 | Outpatient (CLI) | payer OTHER, SELFPAY ==
[2019-04-14 09:56] VITALS: BMI 21.0
[2019-04-21 09:17] VITALS: BMI 21.0
--- NOTE | 2019-04-27 14:27 | CT_ITS ---
STUDY: LOW DOSE CT LUNG CANCER SCREENING REASON FOR EXAM: Female, 58 years old. Greater than 100 pack year history smoker. RADIATION DOSAGE (If Supplied By Facility): CTDIvol = ( 1.7 ) mGy, DLP = ( 54.88 ) mGycm TECHNIQUE: No contrast was administered. Low dose technique was utilized (average mAS-38 and kVp 120). 1.25 mm axial source images with a slice interval of 1.25-mm were reconstructed in lung windows. 2.5 mm axial source images with a slice interval of 2.5-mm were reconstructed in lung windows. 5.0 mm axial source images with a slice interval of 5.0-mm were reconstructed in soft tissue windows. Nodule measured using lung windows on PACS and/or independent workstation with automated measurement of minimum and maximum diameter. Nodule measurement reported as average diameter rounded to the nearest whole number. Growth is defined as an increase ins size of greater than 1.5 mm. COMPARISON: Chest, February 24, 2019. NODULES: Nodule #: 1 Density: Solid Lung location: Right lower lobe: 0.2 cm from pleura Location in series: Series Number: [id number] Image: 176 Size - D1 x D2 mm: 6 x 8 mm: 7 mm average diameter Margin: Irregular Shape: Oval Calcification: No Fat: No Temporal comparison: None Total lung nodules (excluding granulomas): 1 Emphysema: There is minimal emphysematous changes in lungs without infiltrate or mass. Mild linear atelectasis is seen at the right lung base. Endobronchial lesion: Aorta: Diffuse atherosclerotic changes of the thoracic aorta without aneurysm. Coronary arteries: Coronary artery calcifications. Heart: Normal in size Pulmonary artery: Normal in size Mediastinal nodes: None Other chest and abdominal findings: Minimal degenerative changes of the thoracic spine. CT/Low Dose CT Lung Screening IMPRESSION: Lung-RADS category 3 - Continue screening with LDCT in 6 months. IMPORTANT NOTES FOR USE: ACR Lung-RADS Version 1.0 Assessment Categories Release Date: September 11, 2013 Category: Coded 0-4 bases on nodule(s) with highest degree of suspicion. Negative screen is defined as categories 1 and 2; a positive screen is defined as categories 3 and 4. Category 3 and 4A nodules that are unchanged on interval CT should be coded as category 2, and individuals returned to screening in 12 months. Category 4X: Category 3 or 4 nodules with additional imaging findings that increase the suspicion of lung cancer, such as spiculation, GGN that doubles in size in 1 year, enlarged lymph notes, etc. Category Modifiers: S (significant finding unrelated to lung cancer) and C (prior history of treated lung cancer) may be added to the 0-4 Lung-RADS Electronically Signed: Reggie Molina DO at 19:27 EST Tel [phone], Service support ,
== END ==
PROVIDERS: Referring Provider Internal Medicine Critical Care Medicine; Visit Provider Internal Medicine Critical Care Medicine
DX: Z12.2 Encounter for screening for malignant neoplasm of respiratory organs (principal); F17.210 Nicotine dependence, cigarettes, uncomplicated
CPT/HCPCS: G0297

== ENCOUNTER → 2019-04-28 08:05 | Outpatient (CLI) | payer OTHER, SELFPAY ==
[2019-03-03 09:45] VITALS: BMI 20.6
[2019-04-21 09:17] VITALS: BMI 21.0
--- NOTE | 2019-04-28 08:06 | US_ITS ---
PROCEDURE: Ultrasound guided paracentesis. DATE OF EXAMINATION: April 28, 2019. INDICATION: Female, 58 years old. Ascites. PHYSICIAN: Hernandez Eli M.D. TECHNIQUE: The risks, benefits, and alternatives to the procedure were explained to the patient. The specific risks of bleeding, infection, and damage to bowel were detailed and accepted. Witnessed informed consent was obtained. The abdomen was ultrasonographically surveyed. An appropriate pocket of fluid was identified at the right lower quadrant. The skin were cleaned and prepped in the usual sterile fashion. Using ultrasound guidance, the peritoneal cavity was accessed with a 5-Nigerien paracentesis needle/catheter system. The trocar was removed. A total of 7750 ml of brad-colored fluid were removed from the peritoneal cavity. The catheter was removed and a sterile dressing was applied. The procedure was well tolerated. US/Paracentesis with US IMPRESSION: Ultrasound guided paracentesis. Electronically Signed: Hernandez Eli, at 9:56 EST , Service support ,
[2019-04-28 08:32] VITALS: BP 102/54; BP 135/58; BP 92/51; BP 92/52; BP 95/47; BP 98/46; PULSE 54; PULSE 55; PULSE 56; PULSE 57; PULSE 59; PULSE 60; RESP 18; RESP 20; O2SAT 100; O2SAT 94; O2SAT 97; O2SAT 99
[2019-04-28 09:25] VITALS: BP 91/48; PULSE 61; RESP 16; TEMP 36; O2SAT 100; BMI 21.0
[2019-04-28] MEDS: ALBUMIN HUMAN IV (09:55)
== END ==
LOC: US 08:05 → MEDOUTP 09:23
PROVIDERS: Referring Provider Internal Medicine Gastroenterology; Visit Provider Internal Medicine Gastroenterology
DX: K74.60 Unspecified cirrhosis of liver (principal); R18.8 Other ascites
CPT/HCPCS: 96365; 96366 ×2; 49083; P9047; A4216

== ENCOUNTER → 2019-05-05 08:27 | Outpatient (CLI) | payer OTHER, SELFPAY ==
[2019-03-03 09:45] VITALS: BMI 20.6
--- NOTE | 2019-05-05 08:28 | US_ITS ---
PROCEDURE: Ultrasound guided paracentesis. DATE OF EXAMINATION: May 05, 2019. INDICATION: Female, 59 years old. Ascites. PHYSICIAN: Hernandez Eli M.D. TECHNIQUE: The risks, benefits, and alternatives to the procedure were explained to the patient. The specific risks of bleeding, infection, and damage to bowel were detailed and accepted. Witnessed informed consent was obtained. The abdomen was ultrasonographically surveyed. An appropriate pocket of fluid was identified at the right lower quadrant. The skin were cleaned and prepped in the usual sterile fashion. Using ultrasound guidance, the peritoneal cavity was accessed with a 5-Kazakh paracentesis needle/catheter system. The trocar was removed. A total of 6800 ml of brad-colored fluid were removed from the peritoneal cavity. The catheter was removed and a sterile dressing was applied. The procedure was well tolerated. US/Paracentesis with US IMPRESSION: Ultrasound guided paracentesis. Electronically Signed: Hernandez Eli, at 10:12 EST , Service support ,
[2019-05-05 09:02] VITALS: BP 133/58; BP 92/40; BP 92/51; BP 97/55; PULSE 54; PULSE 55; PULSE 56; RESP 16; O2SAT 98; O2SAT 99
[2019-05-05 09:50] VITALS: BP 103/52; PULSE 54; RESP 18; TEMP 36.3; O2SAT 99; BMI 20.6
[2019-05-05] MEDS: Albumin Human 25% (100 mL) 25 GM/100 ML BAG IV ×2 (10:32→12:00)
[2019-05-05 13:47] VITALS: BP 91/58; PULSE 65; RESP 18; O2SAT 96
== END ==
LOC: US 08:27 → MEDOUTP 09:40
PROVIDERS: Referring Provider Internal Medicine Gastroenterology; Visit Provider Internal Medicine Gastroenterology
DX: K74.60 Unspecified cirrhosis of liver (principal); R18.8 Other ascites
CPT/HCPCS: 96365; 96366 ×2; 49083; P9047

== ENCOUNTER → 2019-05-12 10:37 | Outpatient (CLI) | payer MEDICAID, SELFPAY ==
[2019-03-03 09:45] VITALS: BMI 20.6
[2019-05-05 09:50] VITALS: BMI 20.6
--- NOTE | 2019-05-12 10:41 | US_ITS ---
PROCEDURE: ULTRASOUND GUIDED PARACENTESIS CLINICAL HISTORY: Female, 59 years old. ASCITES CONSENT: The risks, benefits and alternatives to the procedure were explained to the patient, and the patient agreed to the procedure and signed the consent. SEDATION: Local Anesthesia STERILE BARRIER TECHNIQUE: The following sterile barrier precautions were used during the procedure: hand hygiene; use of 2% chlorhexidine aseptic; use of a cap, mask, sterile gown, sterile gloves, sterile full body drape, and a large sterile sheet. PROCEDURE/TECHNIQUE: The risks, benefits, and alternatives to the procedure were explained to patient, and the patient agreed to the procedure and signed a consent form for the procedure. TECHNIQUE: Under the ultrasound guidance using sterile technique and after infiltration of the skin and subcutaneous soft tissues with 10 mL of lidocaine 1% a 5 Occitan drainage catheter is introduced in the lower part of the abdomen. 5750 mL of fluid were removed sample sent to lab for evaluation. The patient tolerated the procedure there was no immediate complication. FINDINGS: FLUID PRE-PROCEDURE There is posterior enhancement. The findings appear anechoic. There is no loculation. FLUID POST-PROCEDURE Amount of fluid drained: 5750 ml. US/Paracentesis with US IMPRESSION: Successful ultrasound-guided paracentesis. Electronically Signed: Boo Gonzalez, at 8:50 EST Tel , Service support ,
[2019-05-12 11:25] VITALS: BP 103/73; BP 111/60; BP 116/63; PULSE 61; PULSE 63; PULSE 64; RESP 16; RESP 18; O2SAT 99
[2019-05-12 12:18] VITALS: BP 112/71; PULSE 62; RESP 16; TEMP 36.7; BMI 21.0
[2019-05-12] MEDS: Albumin Human 25% (100 mL) 25 GM/100 ML BAG IV ×2 (12:33→13:57)
== END ==
LOC: US 10:39 → MEDOUTP 12:02
PROVIDERS: PCP Nurse Practitioner Family; Referring Provider Internal Medicine Gastroenterology; Visit Provider Internal Medicine Gastroenterology
DX: K74.60 Unspecified cirrhosis of liver (principal)
CPT/HCPCS: 96365; 96366 ×2; 49083; P9047; A4216

== ENCOUNTER → 2019-05-19 09:49 | Outpatient (CLI) | payer OTHER, SELFPAY ==
[2019-05-12 12:18] VITALS: BMI 21.0
--- NOTE | 2019-05-19 09:52 | US_ITS ---
PROCEDURE: ULTRASOUND GUIDED PARACENTESIS CLINICAL HISTORY: Female, 59 years old. ascites CONSENT: The entire procedure, risks, benefits and alternatives (including doing nothing) were discussed with the patient preprocedure. Risks presented included (but were not limited to) infection/abscess, bleeding, pain, reaction to medications, and potential damage to intra-abdominal/intrapelvic structures. All patient questions were answered satisfactorily. Written consent was obtained, witnessed and placed on the patient''s chart. Time-Out Called: Yes. Consent form signed: Yes. PT-PTT Levels Checked: Yes. SEDATION: None. TECHNIQUE: The patient was taken into the ultrasound suite and placed in the semiupright sitting position. A short timeout was observed. Limited and directed sonographic abdomen evaluation was performed and a large quantity of free flowing nonloculated ascites was identified in the right lower quadrant. An intended percutaneous site was identified and marked. The anterior right lower quadrant soft tissues with an thoroughly prepped and draped in the usual sterile manner. Local superficial anesthesia was obtained utilizing approximately 0.75 cc of 2% lidocaine without epinephrine. A small dermatotomy was made. Next, a 5 Guatemalan coaxial system was advanced to the soft tissues and tip placed in the fluid collection. From this positioning, 4.050 L of yellow ascites was obtained. After obtaining approximately 1 L of ascites fluid, the patient became symptomatically hypotensive. The patient was repositioned supine with feet elevated, a right hand IV started and 500 cc of normal saline infused. The patient during questioning also indicated 1 out of 10 chest uncomfortable feeling. A 12-lead EKG was obtained demonstrating no evidence of ischemia. All devices were removed, the soft tissues cleansed and a sterile occlusive dressing applied. The patient left the department in a wheelchair and was normotensive relative to her baseline and without symptoms. US/Paracentesis with US IMPRESSION: Successful, ultrasound-guided right lower quadrant paracentesis with complications as above. Electronically Signed: Berrtand Patel MD at 13:16 EST , Service support ,
[2019-05-19 10:23] VITALS: BP 106/54; BP 111/57; BP 124/67; BP 62/35; BP 73/43; BP 90/50; PULSE 57; PULSE 63; PULSE 65; PULSE 68; PULSE 70; RESP 16; RESP 18; O2SAT 95; O2SAT 97
[2019-05-19] MEDS: 0.9% Normal Saline 1,000 ML 999 ML IV (10:45)
[2019-05-19] MEDS: 0.9% Saline Lock 10 ML Syringe IV (10:45)
--- NOTE | 2019-05-19 10:48 | EKG12_ITS ---
Test Reason : HX AFIB/CP Blood Pressure : / mmHG Vent. Rate : 068 BPM Atrial Rate : 068 BPM P-R Int : 180 ms QRS Dur : 086 ms QT Int : 434 ms P-R-T Axes : 027 078 062 degrees QTc Int : 461 ms Normal sinus rhythm Normal ECG Confirmed by JUANITA BABCOCK, MERRY ([id number]), acquisitions editor FILI OROZCO ([id number]) on 05/22/2019 12:48:16 PM Referred By: Alberto Aguirre Confirmed By:MERRY GRANT MD
[2019-05-19 11:31] VITALS: BP 109/56; PULSE 65; RESP 18; TEMP 36.4; O2SAT 97; BMI 21.0
[2019-05-19] MEDS: Albumin Human 25% (100 mL) 25 GM/100 ML BAG IV ×2 (12:16→13:40)
[2019-05-19 15:55] VITALS: BP 120/59; PULSE 72; RESP 16; TEMP 36.6; O2SAT 96
== END ==
PROVIDERS: Referring Provider Internal Medicine Gastroenterology; Visit Provider Internal Medicine Gastroenterology
DX: K74.60 Unspecified cirrhosis of liver (principal); R42 Dizziness and giddiness
CPT/HCPCS: 96361 ×2; 96365; 96366 ×3; 49083; 93005; J7030; P9047; A4216

== ENCOUNTER → 2019-05-26 08:11 | Outpatient (CLI) | payer OTHER, SELFPAY ==
[2019-05-05 09:50] VITALS: BMI 20.6
[2019-05-24 10:58] VITALS: BMI 24.8
--- NOTE | 2019-05-26 08:13 | US_ITS ---
PROCEDURE: Ultrasound guided paracentesis. DATE OF EXAMINATION: May 26, 2019. INDICATION: Female, 59 years old. Ascites. PHYSICIAN: Hernandez Eli M.D. TECHNIQUE: The risks, benefits, and alternatives to the procedure were explained to the patient. The specific risks of bleeding, infection, and damage to bowel were detailed and accepted. Witnessed informed consent was obtained. The abdomen was ultrasonographically surveyed. An appropriate pocket of fluid was identified at the right lower quadrant. The skin were cleaned and prepped in the usual sterile fashion. Using ultrasound guidance, the peritoneal cavity was accessed with a 5-Venezuelan paracentesis needle/catheter system. The trocar was removed. A total of 5500 ml of brad-colored fluid were removed from the peritoneal cavity. The catheter was removed and a sterile dressing was applied. The procedure was well tolerated. US/Paracentesis with US IMPRESSION: Ultrasound guided paracentesis. Electronically Signed: Hernandez Eli, at 9:32 EST , Service support ,
[2019-05-26 08:44] VITALS: BP 108/55; BP 108/57; BP 128/62; PULSE 61; PULSE 64; PULSE 66; RESP 16; RESP 18; O2SAT 97; O2SAT 99
[2019-05-26 09:27] VITALS: BP 95/55; PULSE 62; RESP 18; TEMP 36.4; O2SAT 98; BMI 24.8
[2019-05-26] MEDS: Albumin Human 25% (100 mL) 25 GM/100 ML BAG IV ×2 (09:53→11:24)
[2019-05-26 13:15] VITALS: BP 99/63
== END ==
LOC: US 08:12 → MEDOUTP 09:25
PROVIDERS: Referring Provider Internal Medicine Gastroenterology; Visit Provider Internal Medicine Gastroenterology
DX: K74.60 Unspecified cirrhosis of liver (principal)
CPT/HCPCS: 96365; 96366 ×2; 49083; P9047

== ENCOUNTER → 2019-05-29 07:43 | Outpatient (CLI) | payer OTHER, SELFPAY ==
[2019-03-03 09:45] VITALS: BMI 20.6
[2019-05-26 09:27] VITALS: BMI 24.8
[2019-05-29 08:10] LABS: Hematocrit 37.3 % (37-47); Hemoglobin 11.9 g/dL (12.0-15.0); Mean Corp Hgb Conc 31.9 g/dL (32-36); Mean Corpuscular Hgb 31.2 pg (27.0-32.0); Mean Corpuscular Volume 97.6 fL (81-99); Mean Platelet Vol. 10.7 fl (6.2-12.0); Platelet Count 130 K/mm3 (150-450); RBC Distribution Width CV 15.1 % (11.6-14.6); RBC Distribution Width SD 54.4 fl (35.1-43.9); Red Blood Count 3.82 M/mm3 (4.2-5.4); White Blood Count 5.1 K/mm3 (4.4-11.0)
[2019-05-29 08:37] LABS: Albumin, Serum 3.2 g/dL (3.2-5.0); BUN 26 mg/dL (7-18); BUN/Creat Ratio 15.4 RATIO (10-20); Calcium,Total 8.5 mg/dL (8.5-10.1); Chloride 113 mmol/L (98-107); Creatinine, Serum 1.69 mg/dL (0.55-1.02); EST Glomerular Filtration Rate 33 mL/min (>60); Est Glom Filt Rate - Afr Amer 40 mL/min (>60); Ferritin 140 ng/mL (8-252); Free T3 1.9 pg/mL (2.18-3.98); Glucose 114 mg/dL (74-106); Iron 74 ug/dL (50-170); Iron Binding Capacity,Total 205 ug/dL (250-450); Phosphorus 3.9 mg/dL (2.5-4.9); Potassium 4.4 mmol/L (3.5-5.1); Sodium Level 141 mmol/L (136-145); T4 Free Direct 1.18 ng/dL (0.76-1.46); Thyroid Stim Hormone (TSH) 3.38 uIU/mL (0.358-3.74)
[2019-05-29 09:15] LABS: PTHIN 178.9 pg/mL (18.4-80.1)
== END ==
LOC: LAB.FUTURE 07:45 → LAB 07:50
PROVIDERS: Referring Provider Internal Medicine Nephrology; Visit Provider Internal Medicine Nephrology
DX: N18.4 Chronic kidney disease, stage 4 (severe) (principal); D63.1 Anemia in chronic kidney disease; E03.9 Hypothyroidism, unspecified
CPT/HCPCS: 36415; 80069; 82728; 83540; 83550; 83970; 84439; 84443; 84481; 85027

== ENCOUNTER → 2019-06-02 08:13 | Outpatient (CLI) | payer OTHER, SELFPAY ==
[2019-05-05 09:50] VITALS: BMI 20.6
[2019-05-30 11:29] VITALS: BMI 23.9
--- NOTE | 2019-06-02 08:16 | US_ITS ---
PROCEDURE: Ultrasound guided paracentesis. DATE OF EXAMINATION: December 01, 2019. INDICATION: Female, 59 years old. Ascites. PHYSICIAN: Hernandez Eli M.D. TECHNIQUE: The risks, benefits, and alternatives to the procedure were explained to the patient. The specific risks of bleeding, infection, and damage to bowel were detailed and accepted. Witnessed informed consent was obtained. The abdomen was ultrasonographically surveyed. An appropriate pocket of fluid was identified at the right lower quadrant. The skin were cleaned and prepped in the usual sterile fashion. Using ultrasound guidance, the peritoneal cavity was accessed with a 5-Telugu paracentesis needle/catheter system. The trocar was removed. A total of 5800 ml of brad-colored fluid were removed from the peritoneal cavity. The catheter was removed and a sterile dressing was applied. The procedure was well tolerated. US/Paracentesis with US IMPRESSION: Ultrasound guided paracentesis. Electronically Signed: Hernandez Eli, at 9:52 EST , Service support ,
[2019-06-02 08:39] VITALS: BP 114/69; BP 120/59; BP 96/54; PULSE 61; PULSE 65; PULSE 66; RESP 16; O2SAT 97; O2SAT 98
[2019-06-02 09:20] VITALS: BP 96/55; PULSE 62; RESP 16; TEMP 36.5; O2SAT 100; BMI 21.9
[2019-06-02] MEDS: Albumin Human 25% (100 mL) 25 GM/100 ML BAG IV ×2 (09:53→11:20)
== END ==
LOC: US 08:13 → MEDOUTP 09:13
PROVIDERS: Referring Provider Internal Medicine Gastroenterology; Visit Provider Internal Medicine Gastroenterology
DX: K74.60 Unspecified cirrhosis of liver (principal); R18.8 Other ascites
CPT/HCPCS: 96365; 96366 ×2; 49083; P9047; A4216

== ENCOUNTER → 2019-06-09 08:12 | Outpatient (CLI) | payer OTHER, SELFPAY ==
[2019-05-05 09:50] VITALS: BMI 20.6
[2019-06-02 09:20] VITALS: BMI 21.9
--- NOTE | 2019-06-09 08:14 | US_ITS ---
PROCEDURE: Ultrasound guided paracentesis. DATE OF EXAMINATION: June 09, 2019. INDICATION: Female, 59 years old. Ascites. PHYSICIAN: Hernandez Eli M.D. TECHNIQUE: The risks, benefits, and alternatives to the procedure were explained to the patient. The specific risks of bleeding, infection, and damage to bowel were detailed and accepted. Witnessed informed consent was obtained. The abdomen was ultrasonographically surveyed. An appropriate pocket of fluid was identified at the right lower quadrant. The skin were cleaned and prepped in the usual sterile fashion. Using ultrasound guidance, the peritoneal cavity was accessed with a 5-Palestinian paracentesis needle/catheter system. The trocar was removed. A total of 3400 ml of brad-colored fluid were removed from the peritoneal cavity. The catheter was removed and a sterile dressing was applied. The procedure was well tolerated. US/Paracentesis with US IMPRESSION: Ultrasound guided paracentesis. Electronically Signed: Hernandez Eli, at 9:39 EST , Service support ,
[2019-06-09 08:45] VITALS: BP 109/55; BP 113/57; BP 122/76; PULSE 57; PULSE 61; PULSE 64; RESP 14; RESP 16; O2SAT 98; O2SAT 99
[2019-06-09 09:31] VITALS: BP 113/76; PULSE 113; RESP 20; TEMP 36.3; O2SAT 100; BMI 21.0
[2019-06-09] MEDS: Albumin Human 25% (100 mL) 25 GM/100 ML BAG IV ×2 (09:53→11:16)
[2019-06-09 13:09] VITALS: BP 111/61; PULSE 56; RESP 16; TEMP 36.1
== END ==
LOC: US 08:13 → MEDOUTP 09:20
PROVIDERS: Referring Provider Internal Medicine Gastroenterology; Visit Provider Internal Medicine Gastroenterology
DX: K74.60 Unspecified cirrhosis of liver (principal); R18.8 Other ascites
CPT/HCPCS: 96365; 96366 ×2; 49083; P9047; A4216

== ENCOUNTER → 2019-06-16 08:04 | Outpatient (CLI) | payer OTHER, SELFPAY ==
[2019-05-05 09:50] VITALS: BMI 20.6
[2019-06-09 09:31] VITALS: BMI 21.0
--- NOTE | 2019-06-16 08:07 | US_ITS ---
PROCEDURE: Ultrasound guided paracentesis. DATE OF EXAMINATION: June 16, 2019. INDICATION: Female, 59 years old. Ascites. PHYSICIAN: Hernandez Eli M.D. TECHNIQUE: The risks, benefits, and alternatives to the procedure were explained to the patient. The specific risks of bleeding, infection, and damage to bowel were detailed and accepted. Witnessed informed consent was obtained. The abdomen was ultrasonographically surveyed. An appropriate pocket of fluid was identified at the right lower quadrant. The skin were cleaned and prepped in the usual sterile fashion. Using ultrasound guidance, the peritoneal cavity was accessed with a 5-Bermudian paracentesis needle/catheter system. The trocar was removed. A total of 5950 ml of brad-colored fluid were removed from the peritoneal cavity. The catheter was removed and a sterile dressing was applied. The procedure was well tolerated. US/Paracentesis with US IMPRESSION: Ultrasound guided paracentesis. Electronically Signed: Hernandez Eli, at 9:44 EST , Service support ,
[2019-06-16 08:35] VITALS: BP 100/53; BP 118/58; BP 126/71; PULSE 57; PULSE 58; PULSE 61; RESP 16; O2SAT 98; O2SAT 99
[2019-06-16 09:13] VITALS: BP 124/58; PULSE 57; RESP 16; TEMP 36.7; O2SAT 98; BMI 21.0
[2019-06-16] MEDS: Albumin Human 25% (100 mL) 25 GM/100 ML BAG IV ×2 (09:16→10:49)
== END ==
LOC: US 08:05 → MEDOUTP 09:06
PROVIDERS: Referring Provider Internal Medicine Gastroenterology; Visit Provider Internal Medicine Gastroenterology
DX: K74.60 Unspecified cirrhosis of liver (principal); R18.8 Other ascites
CPT/HCPCS: 96365; 96366 ×2; 49083; P9047; A4216

== ENCOUNTER → 2019-06-23 08:19 | Outpatient (CLI) | payer OTHER, SELFPAY ==
[2019-05-05 09:50] VITALS: BMI 20.6
[2019-06-16 09:13] VITALS: BMI 21.0
--- NOTE | 2019-06-23 08:21 | US_ITS ---
PROCEDURE: ULTRASOUND GUIDED PARACENTESIS CLINICAL HISTORY: Female, 59 years old. ASCITES CONSENT: Informed consent obtained Time-Out Called: Yes. Consent form signed: Yes. PT-PTT Levels Checked: Yes. SEDATION: Local TECHNIQUE: Ultrasound guided FINDINGS: FLUID PRE-PROCEDURE There is posterior enhancement. The findings appear anechoic. There is no loculation. After informed consent was obtained, patient was placed on the sonographic table in supine position. Appropriate site for large-volume paracentesis determined using sonographic guidance. The area in question was prepped and draped in a sterile manner and 2% Xylocaine was used as local anesthetic. 14-gauge drainage catheter was placed into the right lower quadrant of the abdomen and approximately 4500 mL of straw-colored serous fluid was withdrawn. Patient tolerated the procedure well with no immediate complications. US/Paracentesis with US IMPRESSION: Successful fluoroscopically guided large volume paracentesis Electronically Signed: Amado Orozco MD at 10:43 EST , Service support ,
[2019-06-23 08:53] VITALS: BP 102/50; BP 110/56; BP 123/55; BP 125/68; PULSE 57; PULSE 59; PULSE 60; PULSE 61; RESP 14; RESP 16; O2SAT 96; O2SAT 97
[2019-06-23 10:00] VITALS: BP 100/51; PULSE 59; RESP 16; TEMP 36.6; BMI 21.0
[2019-06-23] MEDS: Albumin Human 25% (100 mL) 25 GM/100 ML BAG IV ×2 (10:01→11:36)
== END ==
LOC: US 08:19 → MEDOUTP 09:40
PROVIDERS: Referring Provider Internal Medicine Gastroenterology; Visit Provider Internal Medicine Gastroenterology
DX: K74.60 Unspecified cirrhosis of liver (principal); R18.8 Other ascites
CPT/HCPCS: 96365; 96366 ×2; 49083; P9047; A4216

== ENCOUNTER → 2019-06-30 08:12 | Outpatient (CLI) | payer OTHER, SELFPAY ==
[2019-05-05 09:50] VITALS: BMI 20.6
[2019-06-23 10:00] VITALS: BMI 21.0
--- NOTE | 2019-06-30 08:14 | US_ITS ---
PROCEDURE: Ultrasound guided paracentesis. DATE OF EXAMINATION: June 30, 2019. INDICATION: Female, 59 years old. Ascites. PHYSICIAN: Hernandez Eli M.D. TECHNIQUE: The risks, benefits, and alternatives to the procedure were explained to the patient. The specific risks of bleeding, infection, and damage to bowel were detailed and accepted. Witnessed informed consent was obtained. The abdomen was ultrasonographically surveyed. An appropriate pocket of fluid was identified at the right lower quadrant. The skin were cleaned and prepped in the usual sterile fashion. Using ultrasound guidance, the peritoneal cavity was accessed with a 5-Venezuelan paracentesis needle/catheter system. The trocar was removed. A total of 4200 ml of brad-colored fluid were removed from the peritoneal cavity. The catheter was removed and a sterile dressing was applied. The procedure was well tolerated. US/Paracentesis with US IMPRESSION: Ultrasound guided paracentesis. Electronically Signed: Hernandez Eli, at 10:48 EST , Service support ,
[2019-06-30 08:46] VITALS: BP 122/79; BP 131/74; BP 133/76; PULSE 66; PULSE 67; RESP 16; TEMP 36.9; O2SAT 97; O2SAT 98; O2SAT 99
[2019-06-30 09:35] VITALS: BP 139/55; PULSE 61; RESP 18; TEMP 36.4; O2SAT 100; BMI 22.6
[2019-06-30] MEDS: Albumin Human 25% (100 mL) 25 GM/100 ML BAG IV ×2 (10:24→11:48)
== END ==
LOC: US 08:12 → MEDOUTP 09:27
PROVIDERS: Referring Provider Internal Medicine Gastroenterology; Visit Provider Internal Medicine Gastroenterology
DX: K74.60 Unspecified cirrhosis of liver (principal); R18.8 Other ascites
CPT/HCPCS: 96365; 96366 ×2; 49083; P9047; A4216

== ENCOUNTER → 2019-07-07 08:16 | Outpatient (CLI) | payer OTHER, SELFPAY ==
[2019-05-05 09:50] VITALS: BMI 20.6
[2019-06-30 09:35] VITALS: BMI 22.6
--- NOTE | 2019-07-07 08:19 | US_ITS ---
PROCEDURE: Ultrasound guided paracentesis. DATE OF EXAMINATION: July 07, 2019.. INDICATION: Female, 59 years old. Ascites. PHYSICIAN: Hernandez Eli M.D. TECHNIQUE: The risks, benefits, and alternatives to the procedure were explained to the patient. The specific risks of bleeding, infection, and damage to bowel were detailed and accepted. Witnessed informed consent was obtained. The abdomen was ultrasonographically surveyed. An appropriate pocket of fluid was identified at the right lower quadrant. The skin were cleaned and prepped in the usual sterile fashion. Using ultrasound guidance, the peritoneal cavity was accessed with a 5-Cymro paracentesis needle/catheter system. The trocar was removed. A total of 4800 ml of brad-colored fluid were removed from the peritoneal cavity. The catheter was removed and a sterile dressing was applied. The procedure was well tolerated. US/Paracentesis with US IMPRESSION: Ultrasound guided paracentesis. Electronically Signed: Hernandez Eli, at 9:57 EST , Service support ,
[2019-07-07 08:38] VITALS: BP 128/69; BP 134/81; BP 161/57; BP 162/79; PULSE 65; PULSE 66; PULSE 68; PULSE 73; RESP 18; TEMP 36.7; TEMP 36.9; O2SAT 95; O2SAT 96; O2SAT 98
[2019-07-07 09:33] VITALS: BP 116/56; PULSE 64; RESP 18; TEMP 36.4; O2SAT 97; BMI 22.6
[2019-07-07] MEDS: Albumin Human 25% (100 mL) 25 GM/100 ML BAG IV ×2 (09:43→11:13)
== END ==
LOC: US 08:16 → MEDOUTP 09:31
PROVIDERS: Referring Provider Internal Medicine Gastroenterology; Visit Provider Internal Medicine Gastroenterology
DX: K74.60 Unspecified cirrhosis of liver (principal); R18.8 Other ascites
CPT/HCPCS: 96365; 96366 ×2; 49083; P9047; A4216

== ENCOUNTER → 2019-07-14 08:10 | Outpatient (CLI) | payer OTHER, SELFPAY ==
[2019-05-05 09:50] VITALS: BMI 20.6
[2019-07-07 09:33] VITALS: BMI 22.6
--- NOTE | 2019-07-14 08:13 | US_ITS ---
PROCEDURE: ULTRASOUND GUIDED PARACENTESIS CLINICAL HISTORY: Female, 59 years old. ascites CONSENT: Yes Time-Out Called: Yes. Consent form signed: Yes. PT-PTT Levels Checked: Yes. SEDATION: No conscious sedation given. Patient was given 1% lidocaine locally TECHNIQUE: And ultrasound directed paracentesis was performed in the right lower quadrant. FINDINGS: A needle was inserted into the largest pocket of ascites in the right lower quadrant. 3400 cc of straw-colored yellow fluid was aspirated from the abdominal cavity. Since this was a therapeutic thoracentesis the fluid was not sent to laboratory. The patient tolerated the procedure well and no significant residual fluid was identified within the abdominal cavity. US/Paracentesis with US IMPRESSION: A paracentesis was performed without incident and 3400 cc was aspirated from the abdominal cavity as described above. Electronically Signed: Miko French, at 16:41 EST Tel , Service support ,
[2019-07-14 08:31] VITALS: BP 110/61; BP 126/72; BP 132/58; BP 145/70; PULSE 66; PULSE 67; PULSE 68; PULSE 71; RESP 16; TEMP 36.8; O2SAT 96; O2SAT 97; O2SAT 98
[2019-07-14 09:25] VITALS: BP 138/72; PULSE 66; RESP 16; TEMP 36.6; O2SAT 98; BMI 22.8
[2019-07-14] MEDS: Albumin Human 25% (100 mL) 25 GM/100 ML BAG IV ×2 (10:00→11:26)
== END ==
LOC: US 08:11 → MEDOUTP 09:21
PROVIDERS: Referring Provider Internal Medicine Gastroenterology; Visit Provider Internal Medicine Gastroenterology
DX: K74.60 Unspecified cirrhosis of liver (principal); R18.8 Other ascites
CPT/HCPCS: 96365; 96366 ×2; 49083; P9047; A4216

== ENCOUNTER → 2019-07-21 08:10 | Outpatient (CLI) | payer OTHER, SELFPAY ==
[2019-05-05 09:50] VITALS: BMI 20.6
[2019-07-14 09:25] VITALS: BMI 22.8
--- NOTE | 2019-07-21 08:12 | US_ITS ---
PROCEDURE: Ultrasound guided paracentesis. DATE OF EXAMINATION: July 21, 2019. INDICATION: Female, 59 years old. Ascites. PHYSICIAN: Hernandez Eli M.D. TECHNIQUE: The risks, benefits, and alternatives to the procedure were explained to the patient. The specific risks of bleeding, infection, and damage to bowel were detailed and accepted. Witnessed informed consent was obtained. The abdomen was ultrasonographically surveyed. An appropriate pocket of fluid was identified at the right lower quadrant. The skin were cleaned and prepped in the usual sterile fashion. Using ultrasound guidance, the peritoneal cavity was accessed with a 5-Luxembourgish paracentesis needle/catheter system. The trocar was removed. A total of 4050 ml of brad-colored fluid were removed from the peritoneal cavity. The catheter was removed and a sterile dressing was applied. The procedure was well tolerated. US/Paracentesis with US IMPRESSION: Ultrasound guided paracentesis. Electronically Signed: Hernandez Eli, at 9:51 EST , Service support ,
[2019-07-21 08:38] VITALS: BP 109/61; BP 111/59; PULSE 68; PULSE 71; RESP 16; TEMP 37; O2SAT 97; O2SAT 99
== END ==
PROVIDERS: Referring Provider Internal Medicine Gastroenterology; Visit Provider Internal Medicine Gastroenterology
DX: K74.60 Unspecified cirrhosis of liver (principal)
CPT/HCPCS: 49083; A4216

== ENCOUNTER → 2019-07-24 09:36 | Outpatient (CLI) | payer OTHER, SELFPAY ==
[2019-07-14 09:25] VITALS: BMI 22.8
[2019-07-24 10:07] LABS: Absolute Lymphocyte Count 1.99 X10^3/uL (0.83-4.51); Absolute Neutrophil Count 2.6 X10^3/uL (2.0-7.7); Basophil# 0.02 X10^3/uL; Basophil% 0.4 % (0-1); Eosinophil# 0.35 X10^3/uL; Eosinophils% 6.4 % (0-5); Hematocrit 36.3 % (37-47); Hemoglobin 11.8 g/dL (12.0-15.0); Lymphocyte # 1.99 X10^3/ul (4.0); Lymphocyte % 36.6 % (19-41); Mean Corp Hgb Conc 32.5 g/dL (32-36); Mean Corpuscular Hgb 31.2 pg (27.0-32.0); Mean Platelet Vol. 10.6 fl (6.2-12.0); Monocyte# 0.44 X10^3/uL; Monocyte% 8.1 % (0-10); NRBC Flagged by Analyzer 0 % (0-5); Neutrophil # 2.62 X10^3/uL (2.7-7.7); Neutrophil % 48.3 % (47-70); POSITIVE MORPHOLOGY YES; Platelet Count 123 K/mm3 (150-450); RBC Distribution Width SD 52.9 fl (35.1-43.9); Red Blood Count 3.78 M/mm3 (4.2-5.4); White Blood Count 5.4 K/mm3 (4.4-11.0)
[2019-07-24 10:14] LABS: Differential Indicated SCAN CRITERIA MET
[2019-07-24 10:45] LABS: ALB/GLOB Ratio 0.8 RATIO (0.9-2.4); AST(SGOT) 47 U/L (15-37); Alanine Aminotransfer ALT/SGPT 26 U/L (13-56); Albumin, Serum 2.8 g/dL (3.2-5.0); Alkaline Phosphatase 117 U/L (45-117); Anion Gap 0 (5-15); BUN 24 mg/dL (7-18); BUN/Creat Ratio 15.2 RATIO (10-20); Calcium,Total 8.3 mg/dL (8.5-10.1); Chloride 111 mmol/L (98-107); Creatinine, Serum 1.58 mg/dL (0.55-1.02); EST Glomerular Filtration Rate 36 mL/min (>60); Est Glom Filt Rate - Afr Amer 43 mL/min (>60); Globulin 3.3 g/dL (2.2-4.2); Glucose 81 mg/dL (74-106); Potassium 4.3 mmol/L (3.5-5.1); Protein, Total 6.1 g/dL (6.4-8.2); Sodium Level 139 mmol/L (136-145)
[2019-07-25 17:16] LABS: AFP, Tumor Marker 3.9 ng/mL (0.0-8.3)
== END ==
PROVIDERS: Referring Provider Internal Medicine Gastroenterology; Visit Provider Internal Medicine Gastroenterology
DX: K70.31 Alcoholic cirrhosis of liver with ascites (principal); D64.9 Anemia, unspecified; K82.4 Cholesterolosis of gallbladder
CPT/HCPCS: 36415; 80053; 82105; 82140; 85025

== ENCOUNTER → 2019-07-28 07:43 | Outpatient (CLI) | payer OTHER, SELFPAY ==
[2019-05-05 09:50] VITALS: BMI 20.6
[2019-07-14 09:25] VITALS: BMI 22.8
--- NOTE | 2019-07-28 08:10 | US_ITS ---
PROCEDURE: Ultrasound guided paracentesis. DATE OF EXAMINATION: July 28, 2019. INDICATION: Female, 59 years old. Ascites. PHYSICIAN: Hernandez Eli M.D. TECHNIQUE: The risks, benefits, and alternatives to the procedure were explained to the patient. The specific risks of bleeding, infection, and damage to bowel were detailed and accepted. Witnessed informed consent was obtained. The abdomen was ultrasonographically surveyed. An appropriate pocket of fluid was identified at the right lower quadrant. The skin were cleaned and prepped in the usual sterile fashion. Using ultrasound guidance, the peritoneal cavity was accessed with a 5-Italian paracentesis needle/catheter system. The trocar was removed. A total of 5350 ml of brad-colored fluid were removed from the peritoneal cavity. The catheter was removed and a sterile dressing was applied. The procedure was well tolerated. US/Paracentesis with US IMPRESSION: Ultrasound guided paracentesis. Electronically Signed: Hernandez Eli, at 10:01 EDT , Service support ,
[2019-07-28 08:45] VITALS: BP 128/72; BP 129/60; BP 137/66; BP 138/57; PULSE 60; PULSE 63; PULSE 66; PULSE 67; RESP 16; RESP 18; TEMP 36.5; O2SAT 97; O2SAT 98; O2SAT 99
[2019-07-28 09:00] LABS: Cholesterol 151 mg/dL (200); High Density Lipoprotein 32 mg/dL; Triglycerides 86 mg/dL; Very Low Density Lipoprotein 17 mg/dL (5-40)
[2019-07-28 09:42] VITALS: BP 135/60; PULSE 68; RESP 16; TEMP 36.6; O2SAT 99; BMI 22.8
[2019-07-28] MEDS: Albumin Human 25% (100 mL) 25 GM/100 ML BAG IV ×2 (10:19→11:50)
[2019-07-29 15:10] LABS: AFP, Tumor Marker 4.3 ng/mL (0.0-8.3)
== END ==
LOC: US 07:44 → MEDOUTP 09:28
PROVIDERS: Referring Provider Internal Medicine Gastroenterology; Visit Provider Internal Medicine Gastroenterology
DX: K70.31 Alcoholic cirrhosis of liver with ascites (principal); D64.9 Anemia, unspecified; K82.4 Cholesterolosis of gallbladder
CPT/HCPCS: 96365; 96366 ×2; 36415; 49083; 80061; 82105; P9047; A4216

== ENCOUNTER → 2019-08-04 08:05 | Outpatient (CLI) | payer OTHER, SELFPAY ==
[2019-05-05 09:50] VITALS: BMI 20.6
[2019-07-28 09:42] VITALS: BMI 22.8
--- NOTE | 2019-08-04 08:12 | US_ITS ---
PROCEDURE: Ultrasound guided paracentesis. DATE OF EXAMINATION: August 04, 2019. INDICATION: Female, 59 years old. Ascites. PHYSICIAN: Hernandez Eli M.D. TECHNIQUE: The risks, benefits, and alternatives to the procedure were explained to the patient. The specific risks of bleeding, infection, and damage to bowel were detailed and accepted. Witnessed informed consent was obtained. The abdomen was ultrasonographically surveyed. An appropriate pocket of fluid was identified at the right lower quadrant. The skin were cleaned and prepped in the usual sterile fashion. Using ultrasound guidance, the peritoneal cavity was accessed with a 5-Estonian paracentesis needle/catheter system. The trocar was removed. A total of 5250 ml of brad-colored fluid were removed from the peritoneal cavity. The catheter was removed and a sterile dressing was applied. The procedure was well tolerated. US/Paracentesis with US IMPRESSION: Ultrasound guided paracentesis. Electronically Signed: Hernandez Eli, at 9:45 EDT , Service support ,
[2019-08-04 08:35] VITALS: BP 113/64; BP 115/56; BP 127/79; PULSE 65; PULSE 66; RESP 16; RESP 18; TEMP 36.6; O2SAT 100; O2SAT 98; O2SAT 99
[2019-08-04 09:27] VITALS: BP 151/91; PULSE 66; RESP 16; O2SAT 98; BMI 22.8
[2019-08-04] MEDS: Albumin Human 25% (100 mL) 25 GM/100 ML BAG IV ×2 (09:38→11:13)
== END ==
LOC: US 08:06 → MEDOUTP 09:16
PROVIDERS: Referring Provider Internal Medicine Gastroenterology; Visit Provider Internal Medicine Gastroenterology
DX: K74.60 Unspecified cirrhosis of liver (principal); R18.8 Other ascites
CPT/HCPCS: 96365; 96366 ×3; 49083; P9047

== ENCOUNTER → 2019-08-11 08:13 | Outpatient (CLI) | payer OTHER, SELFPAY ==
[2019-05-05 09:50] VITALS: BMI 20.6
[2019-08-04 09:27] VITALS: BMI 22.8
--- NOTE | 2019-08-11 08:15 | US_ITS ---
PROCEDURE: Ultrasound guided paracentesis. DATE OF EXAMINATION: August 11, 2019. INDICATION: Female, 59 years old. Ascites. PHYSICIAN: Hernandez Eli M.D. TECHNIQUE: The risks, benefits, and alternatives to the procedure were explained to the patient. The specific risks of bleeding, infection, and damage to bowel were detailed and accepted. Witnessed informed consent was obtained. The abdomen was ultrasonographically surveyed. An appropriate pocket of fluid was identified at the right lower quadrant. The skin were cleaned and prepped in the usual sterile fashion. Using ultrasound guidance, the peritoneal cavity was accessed with a 5-Frisian paracentesis needle/catheter system. The trocar was removed. A total of 6400 ml of brad-colored fluid were removed from the peritoneal cavity. The catheter was removed and a sterile dressing was applied. The procedure was well tolerated. US/Paracentesis with US IMPRESSION: Ultrasound guided paracentesis. Electronically Signed: Hernandez Eli, at 9:55 EDT , Service support ,
[2019-08-11 08:47] VITALS: BP 111/68; BP 129/66; BP 137/68; PULSE 59; PULSE 63; PULSE 67; RESP 14; TEMP 36.7; O2SAT 100; O2SAT 99
[2019-08-11 09:35] VITALS: BP 116/58; PULSE 59; RESP 16; TEMP 36.6; O2SAT 97; BMI 22.8
[2019-08-11] MEDS: Albumin Human 25% (100 mL) 25 GM/100 ML BAG IV ×2 (09:42→11:17)
== END ==
LOC: US 08:13 → MEDOUTP 09:27
PROVIDERS: Referring Provider Internal Medicine Gastroenterology; Visit Provider Internal Medicine Gastroenterology
DX: K74.60 Unspecified cirrhosis of liver (principal)
CPT/HCPCS: 96365; 96366 ×2; 49083; P9047

== ENCOUNTER → 2019-08-18 08:08 | Outpatient (CLI) | payer OTHER, SELFPAY ==
[2019-07-07 09:33] VITALS: BMI 22.6
[2019-08-11 09:35] VITALS: BMI 22.8
--- NOTE | 2019-08-18 08:09 | US_ITS ---
PROCEDURE: Ultrasound guided paracentesis. DATE OF EXAMINATION: August 18, 2019.. INDICATION: Female, 59 years old. Ascites. PHYSICIAN: Hernandez Eli M.D. TECHNIQUE: The risks, benefits, and alternatives to the procedure were explained to the patient. The specific risks of bleeding, infection, and damage to bowel were detailed and accepted. Witnessed informed consent was obtained. The abdomen was ultrasonographically surveyed. An appropriate pocket of fluid was identified at the right lower quadrant. The skin were cleaned and prepped in the usual sterile fashion. Using ultrasound guidance, the peritoneal cavity was accessed with a 5-Kiswahili paracentesis needle/catheter system. The trocar was removed. A total of 3200 ml of brad-colored fluid were removed from the peritoneal cavity. The catheter was removed and a sterile dressing was applied. The procedure was well tolerated. US/Paracentesis with US IMPRESSION: Ultrasound guided paracentesis. Electronically Signed: Hernandez Eli, at 9:25 EDT , Service support ,
[2019-08-18 08:39] VITALS: BP 132/61; BP 136/77; PULSE 62; PULSE 64; RESP 16; TEMP 36.7; O2SAT 97
== END ==
PROVIDERS: Referring Provider Internal Medicine Gastroenterology; Visit Provider Internal Medicine Gastroenterology
DX: K74.60 Unspecified cirrhosis of liver (principal)
CPT/HCPCS: 49083

== ENCOUNTER → 2019-08-25 08:11 | Outpatient (CLI) | payer OTHER, SELFPAY ==
[2019-07-07 09:33] VITALS: BMI 22.6
[2019-08-11 09:35] VITALS: BMI 22.8
--- NOTE | 2019-08-25 08:18 | US_ITS ---
PROCEDURE: Ultrasound guided paracentesis. DATE OF EXAMINATION: August 25, 2019. INDICATION: Female, 59 years old. Ascites. PHYSICIAN: Hernandez Eli M.D. TECHNIQUE: The risks, benefits, and alternatives to the procedure were explained to the patient. The specific risks of bleeding, infection, and damage to bowel were detailed and accepted. Witnessed informed consent was obtained. The abdomen was ultrasonographically surveyed. An appropriate pocket of fluid was identified at the right lower quadrant. The skin were cleaned and prepped in the usual sterile fashion. Using ultrasound guidance, the peritoneal cavity was accessed with a 5-Yi paracentesis needle/catheter system. The trocar was removed. A total of 5300 ml of brad-colored fluid were removed from the peritoneal cavity. The catheter was removed and a sterile dressing was applied. The procedure was well tolerated. US/Paracentesis with US IMPRESSION: Ultrasound guided paracentesis. Electronically Signed: Hernandez Eli, at 9:54 EDT , Service support ,
[2019-08-25 08:57] VITALS: BP 115/73; BP 136/77; PULSE 63; PULSE 64; PULSE 72; RESP 16; RESP 18; TEMP 36.8; O2SAT 97; O2SAT 98
[2019-08-25 09:39] VITALS: BP 144/68; PULSE 58; RESP 16; TEMP 36.7; O2SAT 99; BMI 22.8
[2019-08-25] MEDS: Albumin Human 25% (100 mL) 25 GM/100 ML BAG IV ×2 (10:02→11:27)
== END ==
LOC: US 08:12 → MEDOUTP 09:30
PROVIDERS: Referring Provider Internal Medicine Gastroenterology; Visit Provider Internal Medicine Gastroenterology
DX: K74.60 Unspecified cirrhosis of liver (principal); R18.8 Other ascites
CPT/HCPCS: 96365; 96366 ×2; 49083; P9047; A4216

== ENCOUNTER → 2019-09-01 10:09 | Outpatient (CLI) | payer OTHER, SELFPAY ==
[2019-07-07 09:33] VITALS: BMI 22.6
[2019-08-25 09:39] VITALS: BMI 22.8
--- NOTE | 2019-09-01 10:14 | US_ITS ---
PROCEDURE: ULTRASOUND GUIDED PARACENTESIS CLINICAL HISTORY: Female, 59 years old. ASCITES CONSENT: The risks, benefits and alternatives to the procedure were explained to the patient, and the patient agreed to the procedure and signed the consent. SEDATION: Local Anesthesia STERILE BARRIER TECHNIQUE: The following sterile barrier precautions were used during the procedure: hand hygiene; use of 2% chlorhexidine aseptic; use of a cap, mask, sterile gown, sterile gloves, sterile full body drape, and a large sterile sheet. PROCEDURE/TECHNIQUE: The risks, benefits, and alternatives to the procedure were explained to patient, and the patient agreed to the procedure and signed a consent form for the procedure. TECHNIQUE: Under the ultrasound guidance using sterile technique and after infiltration of the skin and subcutaneous soft tissues with 10 mL of lidocaine 1% a 5 Hungarian drainage catheter is introduced in the lower part of the abdomen. 5150 mL of fluid were removed sample sent to lab for evaluation. The patient tolerated the procedure there was no immediate complication. FINDINGS: FLUID PRE-PROCEDURE There is posterior enhancement. The findings appear anechoic. There is no loculation. FLUID POST-PROCEDURE Amount of fluid drained: 5150 ml. US/Paracentesis with US IMPRESSION: Successful ultrasound-guided paracentesis. Electronically Signed: Boo Gonzalez, at 12:57 EDT Tel , Service support ,
[2019-09-01 10:30] VITALS: BP 144/65; BP 145/79; BP 147/69; BP 157/63; PULSE 60; PULSE 62; PULSE 66; RESP 16; RESP 18; TEMP 36.8; O2SAT 98; O2SAT 99
[2019-09-01] MEDS: Albumin Human 25% (100 mL) 25 GM/100 ML BAG IV ×2 (11:43→13:08)
[2019-09-01 11:44] VITALS: BP 110/56; PULSE 51; RESP 16; O2SAT 99; BMI 22.8
[2019-09-01 15:04] VITALS: BP 111/54; PULSE 62
== END ==
LOC: US 10:11 → MEDOUTP 11:33
PROVIDERS: Referring Provider Internal Medicine Gastroenterology; Visit Provider Internal Medicine Gastroenterology
DX: K74.60 Unspecified cirrhosis of liver (principal); R18.8 Other ascites
CPT/HCPCS: 96365; 96366 ×2; 49083; P9047; A4216

== ENCOUNTER → 2019-09-08 08:15 | Outpatient (CLI) | payer OTHER, SELFPAY ==
[2019-07-07 09:33] VITALS: BMI 22.6
[2019-09-01 11:44] VITALS: BMI 22.8
--- NOTE | 2019-09-08 08:17 | US_ITS ---
PROCEDURE: Ultrasound guided paracentesis. DATE OF EXAMINATION: September 08, 2019. INDICATION: Female, 59 years old. Ascites. PHYSICIAN: Hernandez Eli M.D. TECHNIQUE: The risks, benefits, and alternatives to the procedure were explained to the patient. The specific risks of bleeding, infection, and damage to bowel were detailed and accepted. Witnessed informed consent was obtained. The abdomen was ultrasonographically surveyed. An appropriate pocket of fluid was identified at the right lower quadrant. The skin were cleaned and prepped in the usual sterile fashion. Using ultrasound guidance, the peritoneal cavity was accessed with a 5-Khmer paracentesis needle/catheter system. The trocar was removed. A total of 4750 ml of brad-colored fluid were removed from the peritoneal cavity. The catheter was removed and a sterile dressing was applied. The procedure was well tolerated. US/Paracentesis with US IMPRESSION: Ultrasound guided paracentesis. Electronically Signed: Hernandez Eli, at 9:48 EDT , Service support ,
[2019-09-08 09:24] VITALS: BP 130/78; PULSE 67; RESP 16; TEMP 36.8; O2SAT 98; BMI 22.8
[2019-09-08] MEDS: Albumin Human 25% (100 mL) 25 GM/100 ML BAG IV ×2 (10:15→11:38)
[2019-09-08 10:30] VITALS: BP 109/70; BP 124/77; PULSE 62; PULSE 66; RESP 16; TEMP 37; O2SAT 98; O2SAT 99
== END ==
LOC: US 08:16 → MEDOUTP 09:15
PROVIDERS: Referring Provider Internal Medicine Gastroenterology; Visit Provider Internal Medicine Gastroenterology
DX: K74.60 Unspecified cirrhosis of liver (principal); R18.8 Other ascites
CPT/HCPCS: 96365; 96366 ×2; 49083; P9047; A4216

== ENCOUNTER → 2019-09-15 08:14 | Outpatient (CLI) | payer OTHER, SELFPAY ==
[2019-07-07 09:33] VITALS: BMI 22.6
[2019-09-08 09:24] VITALS: BMI 22.8
--- NOTE | 2019-09-15 08:16 | US_ITS ---
PROCEDURE: Ultrasound guided paracentesis. DATE OF EXAMINATION: September 15, 2019. INDICATION: Female, 59 years old. Ascites. PHYSICIAN: Hernandez Eli M.D. TECHNIQUE: The risks, benefits, and alternatives to the procedure were explained to the patient. The specific risks of bleeding, infection, and damage to bowel were detailed and accepted. Witnessed informed consent was obtained. The abdomen was ultrasonographically surveyed. An appropriate pocket of fluid was identified at the right lower quadrant. The skin were cleaned and prepped in the usual sterile fashion. Using ultrasound guidance, the peritoneal cavity was accessed with a 5-Latvian paracentesis needle/catheter system. The trocar was removed. A total of 4900 ml of brad-colored fluid were removed from the peritoneal cavity. The catheter was removed and a sterile dressing was applied. The procedure was well tolerated. US/Paracentesis with US IMPRESSION: Ultrasound guided paracentesis. Electronically Signed: Hernandez Eli, at 10:02 EDT , Service support ,
[2019-09-15 08:44] VITALS: BP 131/92; BP 145/65; BP 147/80; BP 149/78; PULSE 64; PULSE 68; PULSE 72; PULSE 74; RESP 16; RESP 18; TEMP 36.9; O2SAT 97; O2SAT 98
[2019-09-15 09:32] VITALS: BP 137/68; PULSE 68; RESP 18; TEMP 36.8; O2SAT 99; BMI 24.1
[2019-09-15] MEDS: Albumin Human 25% (100 mL) 25 GM/100 ML BAG IV ×2 (10:04→11:30)
[2019-09-15 13:30] VITALS: BP 115/61; PULSE 73; TEMP 36.7
== END ==
LOC: US 09:24 → MEDOUTP 09:30
PROVIDERS: Referring Provider Internal Medicine Gastroenterology; Visit Provider Internal Medicine Gastroenterology
DX: K74.60 Unspecified cirrhosis of liver (principal)
CPT/HCPCS: 96365; 96366 ×2; 49083; P9047; A4216

== ENCOUNTER 2019-09-18 09:50 | Outpatient (RCR) | payer OTHER, SELFPAY ==
[2019-04-14 09:56] VITALS: BMI 21.0
[2019-09-15 09:32] VITALS: BMI 24.1
[2019-09-18 10:31] LABS: Absolute Lymphocyte Count 1.57 X10^3/uL (0.83-4.51); Absolute Neutrophil Count 2.7 X10^3/uL (2.0-7.7); Basophil# 0.02 X10^3/uL; Basophil% 0.4 % (0-1); Hematocrit 36.6 % (37-47); Hemoglobin 11.7 g/dL (12.0-15.0); Lymphocyte # 1.57 X10^3/ul (4.0); Lymphocyte % 31.7 % (19-41); Mean Corpuscular Hgb 30.8 pg (27.0-32.0); Mean Corpuscular Volume 96.3 fL (81-99); Mean Platelet Vol. 10.5 fl (6.2-12.0); Monocyte# 0.31 X10^3/uL; Monocyte% 6.3 % (0-10); NRBC Flagged by Analyzer 0 % (0-5); Neutrophil # 2.74 X10^3/uL (2.7-7.7); Neutrophil % 55.2 % (47-70); Platelet Count 114 K/mm3 (150-450); RBC Distribution Width CV 14.7 % (11.6-14.6); RBC Distribution Width SD 51.7 fl (35.1-43.9)
[2019-09-18 10:39] LABS: International Normalized Ratio 1.3; Prothrombin Time (Protime)PT. 16.1 SECONDS (11.7-14.9)
[2019-09-18 11:01] LABS: PTHIN 264.3 pg/mL (18.4-80.1)
[2019-09-18 11:04] LABS: AST(SGOT) 32 U/L (15-37); Alanine Aminotransfer ALT/SGPT 20 U/L (13-56); Albumin, Serum 3.1 g/dL (3.2-5.0); Alkaline Phosphatase 109 U/L (45-117); Anion Gap 4 (5-15); BUN 17 mg/dL (7-18); BUN/Creat Ratio 12.7 RATIO (10-20); Calcium,Total 8.2 mg/dL (8.5-10.1); Chloride 112 mmol/L (98-107); Creatinine, Serum 1.34 mg/dL (0.55-1.02); EST Glomerular Filtration Rate 43 mL/min (>60); Est Glom Filt Rate - Afr Amer 52 mL/min (>60); Ferritin 126 ng/mL (8-252); Glucose 132 mg/dL (74-106); Iron 55 ug/dL (50-170); Iron Binding Capacity,Total 185 ug/dL (250-450); Phosphorus 3.8 mg/dL (2.5-4.9); Potassium 3.8 mmol/L (3.5-5.1); Protein, Total 6.1 g/dL (6.4-8.2); Sodium Level 142 mmol/L (136-145)
== END 2019-09-18 18:00 | disposition home or self-care (01) ==
LOC: LAB 09:50
PROVIDERS: Internal Medicine Nephrology; Referring Provider Internal Medicine Gastroenterology; Visit Provider Internal Medicine Gastroenterology
DX: K70.30 Alcoholic cirrhosis of liver without ascites (principal); R10.9 Unspecified abdominal pain; R11.0 Nausea; F50.89 Other specified eating disorder
CPT/HCPCS: 36415; 80053; 82728; 83540; 83550; 83970; 84100; 85025; 85610

== ENCOUNTER → 2019-09-22 08:10 | Outpatient (CLI) | payer OTHER, SELFPAY ==
[2019-07-07 09:33] VITALS: BMI 22.6
[2019-09-15 09:32] VITALS: BMI 24.1
--- NOTE | 2019-09-22 08:13 | US_ITS ---
PROCEDURE: Ultrasound guided paracentesis. DATE OF EXAMINATION: September 22, 2019. INDICATION: Female, 59 years old. Ascites. PHYSICIAN: Hernandez Eli M.D. TECHNIQUE: The risks, benefits, and alternatives to the procedure were explained to the patient. The specific risks of bleeding, infection, and damage to bowel were detailed and accepted. Witnessed informed consent was obtained. The abdomen was ultrasonographically surveyed. An appropriate pocket of fluid was identified at the right lower quadrant. The skin were cleaned and prepped in the usual sterile fashion. Using ultrasound guidance, the peritoneal cavity was accessed with a 5-Ukrainian paracentesis needle/catheter system. The trocar was removed. A total of 3800 ml of brad-colored fluid were removed from the peritoneal cavity. The catheter was removed and a sterile dressing was applied. The procedure was well tolerated. US/Paracentesis with US IMPRESSION: Ultrasound guided paracentesis. Electronically Signed: Hernandez Eli, at 9:33 EDT , Service support ,
[2019-09-22 09:58] VITALS: BP 138/81; BP 139/81; PULSE 68; PULSE 69; RESP 14; RESP 16; TEMP 37; O2SAT 98; O2SAT 99
== END ==
PROVIDERS: Referring Provider Internal Medicine Gastroenterology; Visit Provider Internal Medicine Gastroenterology
DX: K74.60 Unspecified cirrhosis of liver (principal)
CPT/HCPCS: 49083

== ENCOUNTER → 2019-09-27 12:23 | Outpatient (CLI) | payer OTHER, SELFPAY ==
[2019-09-15 09:32] VITALS: BMI 24.1
[2019-09-27 13:28] LABS: Thyroid Stim Hormone (TSH) 4.22 uIU/mL (0.358-3.74)
== END ==
PROVIDERS: Referring Provider Nurse Practitioner Family; Visit Provider Nurse Practitioner Family
DX: E03.9 Hypothyroidism, unspecified (principal)
CPT/HCPCS: 36415; 84439; 84443

== ENCOUNTER → 2019-09-29 08:06 | Outpatient (CLI) | payer OTHER, SELFPAY ==
[2019-07-07 09:33] VITALS: BMI 22.6
[2019-09-15 09:32] VITALS: BMI 24.1
--- NOTE | 2019-09-29 08:08 | US_ITS ---
PROCEDURE: Ultrasound guided paracentesis. DATE OF EXAMINATION: September 29, 2019. INDICATION: Female, 59 years old. Ascites. PHYSICIAN: Hernandez Eli M.D. TECHNIQUE: The risks, benefits, and alternatives to the procedure were explained to the patient. The specific risks of bleeding, infection, and damage to bowel were detailed and accepted. Witnessed informed consent was obtained. The abdomen was ultrasonographically surveyed. An appropriate pocket of fluid was identified at the right lower quadrant. The skin were cleaned and prepped in the usual sterile fashion. Using ultrasound guidance, the peritoneal cavity was accessed with a 5-Guyanese paracentesis needle/catheter system. The trocar was removed. A total of 5250 ml of brad-colored fluid were removed from the peritoneal cavity. The catheter was removed and a sterile dressing was applied. The procedure was well tolerated. US/Paracentesis with US IMPRESSION: Ultrasound guided paracentesis. Electronically Signed: Hernandez Eli, at 9:49 EDT , Service support ,
[2019-09-29 08:44] VITALS: BP 112/57; BP 112/62; BP 136/69; BP 146/76; PULSE 60; PULSE 62; PULSE 63; PULSE 64; RESP 12; RESP 16; TEMP 36.7; O2SAT 100; O2SAT 98; O2SAT 99
[2019-09-29 10:00] VITALS: BP 120/65; PULSE 65; RESP 16; TEMP 36.6; BMI 23.8
[2019-09-29] MEDS: Albumin Human 25% (100 mL) 25 GM/100 ML BAG IV ×2 (10:00→11:21)
[2019-09-29 13:02] VITALS: BP 118/70; PULSE 73; RESP 16
== END ==
LOC: US 08:06 → MEDOUTP 09:25
PROVIDERS: Referring Provider Internal Medicine Gastroenterology; Visit Provider Internal Medicine Gastroenterology
DX: K74.60 Unspecified cirrhosis of liver (principal); R18.8 Other ascites
CPT/HCPCS: 96365; 96366 ×2; 49083; P9047; A4216

== ENCOUNTER → 2019-10-06 10:09 | Outpatient (CLI) | payer OTHER, SELFPAY ==
[2019-07-07 09:33] VITALS: BMI 22.6
[2019-09-29 10:00] VITALS: BMI 23.8
--- NOTE | 2019-10-06 10:12 | US_ITS ---
PROCEDURE: ULTRASOUND GUIDED PARACENTESIS CLINICAL HISTORY: Female, 59 years old. ASCITES CONSENT: The risks, benefits and alternatives to the procedure were explained to the patient, and the patient agreed to the procedure and signed the consent. SEDATION: Local Anesthesia STERILE BARRIER TECHNIQUE: The following sterile barrier precautions were used during the procedure: hand hygiene; use of 2% chlorhexidine aseptic; use of a cap, mask, sterile gown, sterile gloves, sterile full body drape, and a large sterile sheet. PROCEDURE/TECHNIQUE: The risks, benefits, and alternatives to the procedure were explained to patient, and the patient agreed to the procedure and signed a consent form for the procedure. TECHNIQUE: Under the ultrasound guidance using sterile technique and after infiltration of the skin and subcutaneous soft tissues with 10 mL of lidocaine 1% a 5 Hebrew drainage catheter is introduced in the lower part of the abdomen. 4750 mL of fluid were removed sample sent to lab for evaluation. The patient tolerated the procedure there was no immediate complication. FINDINGS: FLUID PRE-PROCEDURE There is posterior enhancement. The findings appear anechoic. There is no loculation. FLUID POST-PROCEDURE Amount of fluid drained: 4750 ml. US/Paracentesis with US IMPRESSION: Successful ultrasound-guided paracentesis. Electronically Signed: Boo Gonzalez, at 15:28 EDT Tel , Service support ,
[2019-10-06 10:43] VITALS: BP 120/70; BP 98/59; PULSE 64; PULSE 66; PULSE 71; RESP 14; RESP 16; TEMP 36.9; O2SAT 98; O2SAT 99
[2019-10-06 11:21] VITALS: BP 126/63; PULSE 66; RESP 16; TEMP 36.7; O2SAT 98; BMI 23.8
[2019-10-06] MEDS: Albumin Human 25% (100 mL) 25 GM/100 ML BAG IV ×2 (11:39→13:02)
== END ==
LOC: US 10:10 → MEDOUTP 11:15
PROVIDERS: Visit Provider Internal Medicine Gastroenterology
DX: K74.60 Unspecified cirrhosis of liver (principal)
CPT/HCPCS: 96365; 96366 ×2; 49083; P9047

== ENCOUNTER → 2019-10-13 08:17 | Outpatient (CLI) | payer OTHER, SELFPAY ==
[2019-07-07 09:33] VITALS: BMI 22.6
[2019-10-06 11:21] VITALS: BMI 23.8
--- NOTE | 2019-10-13 08:20 | US_ITS ---
PROCEDURE: Ultrasound guided paracentesis. DATE OF EXAMINATION: October 13, 2019. INDICATION: Female, 59 years old. Ascites. PHYSICIAN: Hernandez Eli M.D. TECHNIQUE: The risks, benefits, and alternatives to the procedure were explained to the patient. The specific risks of bleeding, infection, and damage to bowel were detailed and accepted. Witnessed informed consent was obtained. The abdomen was ultrasonographically surveyed. An appropriate pocket of fluid was identified at the right lower quadrant. The skin were cleaned and prepped in the usual sterile fashion. Using ultrasound guidance, the peritoneal cavity was accessed with a 5-Moldovan paracentesis needle/catheter system. The trocar was removed. A total of 3550 ml of brad-colored fluid were removed from the peritoneal cavity. The catheter was removed and a sterile dressing was applied. The procedure was well tolerated. US/Paracentesis with US IMPRESSION: Ultrasound guided paracentesis. Electronically Signed: Hernandez Eli, at 9:42 EDT , Service support ,
[2019-10-13 09:22] VITALS: BP 115/74; BP 124/61; BP 142/79; PULSE 57; PULSE 58; PULSE 60; RESP 16; TEMP 36.6; O2SAT 100; O2SAT 96; O2SAT 98
== END ==
PROVIDERS: PCP Nurse Practitioner Family; Referring Provider Internal Medicine Gastroenterology; Visit Provider Internal Medicine Gastroenterology
DX: K74.60 Unspecified cirrhosis of liver (principal)
CPT/HCPCS: 49083; A4216

== ENCOUNTER → 2019-10-20 08:07 | Outpatient (CLI) | payer OTHER, SELFPAY ==
[2019-09-15 09:32] VITALS: BMI 24.1
[2019-10-17 13:39] VITALS: BMI 23.8
--- NOTE | 2019-10-20 08:09 | US_ITS ---
PROCEDURE: Ultrasound guided paracentesis. DATE OF EXAMINATION: October 20, 2019.. INDICATION: Female, 59 years old. Ascites. PHYSICIAN: Hernandez Eli M.D. TECHNIQUE: The risks, benefits, and alternatives to the procedure were explained to the patient. The specific risks of bleeding, infection, and damage to bowel were detailed and accepted. Witnessed informed consent was obtained. The abdomen was ultrasonographically surveyed. An appropriate pocket of fluid was identified at the right lower quadrant. The skin were cleaned and prepped in the usual sterile fashion. Using ultrasound guidance, the peritoneal cavity was accessed with a 5-Yi paracentesis needle/catheter system. The trocar was removed. A total of 3700 ml of brad-colored fluid were removed from the peritoneal cavity. The catheter was removed and a sterile dressing was applied. The procedure was well tolerated. US/Paracentesis with US IMPRESSION: Ultrasound guided paracentesis. Electronically Signed: Hernandez Eli, at 9:49 EDT , Service support ,
[2019-10-20 08:53] VITALS: BP 139/74; BP 143/68; PULSE 62; PULSE 63; RESP 16; TEMP 36.6; O2SAT 98
== END ==
PROVIDERS: PCP Nurse Practitioner Family; Referring Provider Internal Medicine Gastroenterology; Visit Provider Internal Medicine Gastroenterology
DX: K74.60 Unspecified cirrhosis of liver (principal)
CPT/HCPCS: 49083

== ENCOUNTER → 2019-10-27 08:14 | Outpatient (CLI) | payer OTHER, SELFPAY ==
[2019-09-15 09:32] VITALS: BMI 24.1
[2019-10-17 13:39] VITALS: BMI 23.8
--- NOTE | 2019-10-27 08:15 | US_ITS ---
PROCEDURE: Ultrasound guided paracentesis. DATE OF EXAMINATION: October 27, 2019. INDICATION: Female, 59 years old. Ascites. PHYSICIAN: Hernandez Eli M.D. TECHNIQUE: The risks, benefits, and alternatives to the procedure were explained to the patient. The specific risks of bleeding, infection, and damage to bowel were detailed and accepted. Witnessed informed consent was obtained. The abdomen was ultrasonographically surveyed. An appropriate pocket of fluid was identified at the right lower quadrant. The skin were cleaned and prepped in the usual sterile fashion. Using ultrasound guidance, the peritoneal cavity was accessed with a 5-Faroese paracentesis needle/catheter system. The trocar was removed. A total of 2850 ml of brad-colored fluid were removed from the peritoneal cavity. The catheter was removed and a sterile dressing was applied. The procedure was well tolerated. US/Paracentesis with US IMPRESSION: Ultrasound guided paracentesis. Electronically Signed: Hernandez Eli, at 9:44 EDT , Service support ,
[2019-10-27 08:50] VITALS: BP 103/56; BP 136/58; PULSE 59; PULSE 62; RESP 16; TEMP 37.1; O2SAT 98
== END ==
PROVIDERS: PCP Nurse Practitioner Family; Referring Provider Internal Medicine Gastroenterology; Visit Provider Internal Medicine Gastroenterology
DX: K74.60 Unspecified cirrhosis of liver (principal)
CPT/HCPCS: 49083

== ENCOUNTER → 2019-10-31 07:37 | Outpatient (CLI) | payer OTHER, SELFPAY ==
[2019-09-15 09:32] VITALS: BMI 24.1
[2019-10-17 13:39] VITALS: BMI 23.8
[2019-10-31 09:01] LABS: PTHIN 157.7 pg/mL (18.4-80.1)
== END ==
PROVIDERS: Referring Provider Internal Medicine Nephrology; Visit Provider Internal Medicine Nephrology
DX: N18.4 Chronic kidney disease, stage 4 (severe) (principal); N25.81 Secondary hyperparathyroidism of renal origin
CPT/HCPCS: 36415; 83970

== ENCOUNTER → 2019-11-03 08:14 | Outpatient (CLI) | payer OTHER, SELFPAY ==
[2019-09-15 09:32] VITALS: BMI 24.1
[2019-10-17 13:39] VITALS: BMI 23.8
--- NOTE | 2019-11-03 08:16 | US_ITS ---
PROCEDURE: Ultrasound guided paracentesis. DATE OF EXAMINATION: November 03, 2019.. INDICATION: Female, 59 years old. Ascites. PHYSICIAN: Hernandez Eli M.D. TECHNIQUE: The risks, benefits, and alternatives to the procedure were explained to the patient. The specific risks of bleeding, infection, and damage to bowel were detailed and accepted. Witnessed informed consent was obtained. The abdomen was ultrasonographically surveyed. An appropriate pocket of fluid was identified at the right lower quadrant. The skin were cleaned and prepped in the usual sterile fashion. Using ultrasound guidance, the peritoneal cavity was accessed with a 5-Bengali paracentesis needle/catheter system. The trocar was removed. A total of 2950 ml of brad-colored fluid were removed from the peritoneal cavity. The catheter was removed and a sterile dressing was applied. The procedure was well tolerated. US/Paracentesis with US IMPRESSION: Ultrasound guided paracentesis. Electronically Signed: Hernandez Eli, at 9:46 EDT , Service support ,
[2019-11-03 08:43] VITALS: BP 120/71; BP 124/70; BP 138/75; BP 140/73; PULSE 60; PULSE 61; PULSE 65; PULSE 67; RESP 18; TEMP 36.6; O2SAT 100; O2SAT 96; O2SAT 98
== END ==
PROVIDERS: PCP Nurse Practitioner Family; Referring Provider Internal Medicine Gastroenterology; Visit Provider Internal Medicine Gastroenterology
DX: K74.60 Unspecified cirrhosis of liver (principal)
CPT/HCPCS: 49083; J7050

== ENCOUNTER → 2019-11-10 08:30 | Outpatient (CLI) | payer OTHER, SELFPAY ==
[2019-09-15 09:32] VITALS: BMI 24.1
[2019-10-17 13:39] VITALS: BMI 23.8
--- NOTE | 2019-11-10 08:38 | US_ITS ---
PROCEDURE: ULTRASOUND GUIDED PARACENTESIS CLINICAL HISTORY: Female, 59 years old. ASCITES CONSENT: Informed consent obtained Time-Out Called: Yes. Consent form signed: Yes. PT-PTT Levels Checked: Yes. SEDATION: Local TECHNIQUE: Sonographically guided FINDINGS: FLUID PRE-PROCEDURE There is posterior enhancement. The findings appear anechoic. There is no loculation. After informed consent was obtained, patient was placed in the supine position on the sonographic bed, and an appropriate site for paracentesis was determined. The area was prepped and draped in a sterile manner, and 2% Xylocaine was used as local anesthetic. Under sonographic guidance, a 15-gauge Yeuh drainage catheter was advanced into the peritoneal cavity and approximately 2650 mL of straw-colored serous fluid was withdrawn. Patient tolerated procedure well with no immediate complications FLUID POST-PROCEDURE Amount of fluid drained: 2650 ml. US/Paracentesis with US IMPRESSION: Successful sonographically guided paracentesis Electronically Signed: Amado Orozco MD at 9:53 EDT , Service support ,
[2019-11-10 09:43] VITALS: BP 104/53; BP 116/59; BP 121/58; PULSE 60; PULSE 63; PULSE 64; RESP 18; TEMP 36.6; O2SAT 98; O2SAT 99
== END ==
PROVIDERS: Referring Provider Internal Medicine Gastroenterology; Visit Provider Internal Medicine Gastroenterology
DX: K74.60 Unspecified cirrhosis of liver (principal)
CPT/HCPCS: 49083

== ENCOUNTER → 2019-11-16 08:12 | Outpatient (CLI) | payer OTHER, SELFPAY ==
[2019-09-15 09:32] VITALS: BMI 24.1
[2019-10-17 13:39] VITALS: BMI 23.8
--- NOTE | 2019-11-16 08:14 | US_ITS ---
PROCEDURE: Ultrasound guided paracentesis. DATE OF EXAMINATION: November 16, 2019. INDICATION: Female, 59 years old. Ascites. PHYSICIAN: Hernandez Eli M.D. TECHNIQUE: The risks, benefits, and alternatives to the procedure were explained to the patient. The specific risks of bleeding, infection, and damage to bowel were detailed and accepted. Witnessed informed consent was obtained. The abdomen was ultrasonographically surveyed. An appropriate pocket of fluid was identified at the right lower quadrant. The skin were cleaned and prepped in the usual sterile fashion. Using ultrasound guidance, the peritoneal cavity was accessed with a 5-Tunisian paracentesis needle/catheter system. The trocar was removed. A total of 3200 ml of brad-colored fluid were removed from the peritoneal cavity. The catheter was removed and a sterile dressing was applied. The procedure was well tolerated. US/Paracentesis with US IMPRESSION: Ultrasound guided paracentesis. Electronically Signed: Hernandez Eli, at 9:21 EDT , Service support ,
[2019-11-16 08:50] VITALS: BP 125/68; BP 132/71; PULSE 61; PULSE 64; RESP 14; O2SAT 100
== END ==
PROVIDERS: Referring Provider Internal Medicine Gastroenterology; Visit Provider Internal Medicine Gastroenterology
DX: K74.60 Unspecified cirrhosis of liver (principal)
CPT/HCPCS: 49083; A4216

== ENCOUNTER → 2019-11-21 12:29 | Outpatient (CLI) | payer OTHER, SELFPAY ==
[2019-10-17 13:39] VITALS: BMI 23.8
--- NOTE | 2019-11-21 12:33 | CT_ITS ---
STUDY: CT CHEST WITHOUT CONTRAST REASON FOR EXAM: Female, 59 years old. LUNG NODULE RADIATION DOSAGE (If Supplied By Facility): CTDIvol = ( 8.22 ) mGy, DLP = ( 256.76 ) mGycm TECHNIQUE: Transaxial imaging was performed without the administration of intravenous contrast material. Multiplanar coronal and sagittal images were reformatted. Individualized dose optimization techniques were used for this CT. COMPARISON: Comparison is made with prior examination dated April 27, 2019. FINDINGS: Mild degree of emphysematous changes in the lungs slightly more prominent in the upper lobes. Stable 8 mm x 7 mm nodule in the posterior aspect of the right lower lobe with a linear component extending to the pleural surface. This is in keeping with the mild degree of scarring. There is no demonstrated pleural abnormality. There are calcifications of the coronary arteries. Minimal anterior pericardial thickening. There are multiple small lymph nodes within the mediastinum, which are normal in size and morphology most compatible with reactive lymph hyperplasia. Normal hilar regions. Normal unenhanced pulmonary arteries. There is atherosclerotic calcification of the aortic arch with tortuosity and elongation of the aortic arch and descending thoracic aorta. There is demineralization of the thoracic spine. Ascites. Nodular contour of the liver suggestive of cirrhosis CT/Chest without Contrast IMPRESSION: Stable 8 mm x 7 mm nodule in the posterior medial segment of the right lower lobe with a linear component that extends to the pleural surface. This most likely represents a focal area of scarring. Electronically Signed: Hernandez Eli, at 13:24 EDT , Service support ,
[2019-11-21 13:43] LABS: Absolute Lymphocyte Count 1.83 X10^3/uL (0.83-4.51); Absolute Neutrophil Count 3.6 X10^3/uL (2.0-7.7); Basophil# 0.05 X10^3/uL; Basophil% 0.8 % (0-1); Eosinophil# 0.27 X10^3/uL; Eosinophils% 4.3 % (0-5); Hematocrit 42.3 % (37-47); Hemoglobin 13.6 g/dL (12.0-15.0); Lymphocyte # 1.83 X10^3/ul (4.0); Lymphocyte % 29.1 % (19-41); Mean Corp Hgb Conc 32.2 g/dL (32-36); Mean Corpuscular Hgb 30.6 pg (27.0-32.0); Mean Corpuscular Volume 95.3 fL (81-99); Mean Platelet Vol. 10.8 fl (6.2-12.0); Monocyte# 0.48 X10^3/uL; Monocyte% 7.6 % (0-10); NRBC Flagged by Analyzer 0 % (0-5); Neutrophil # 3.64 X10^3/uL (2.7-7.7); Neutrophil % 57.9 % (47-70); Platelet Count 142 K/mm3 (150-450); RBC Distribution Width CV 14.6 % (11.6-14.6); RBC Distribution Width SD 51.2 fl (35.1-43.9); Red Blood Count 4.44 M/mm3 (4.2-5.4); White Blood Count 6.3 K/mm3 (4.4-11.0)
[2019-11-21 13:54] LABS: International Normalized Ratio 1.3; Prothrombin Time (Protime)PT. 15.5 SECONDS (11.7-14.9)
[2019-11-21 14:10] LABS: ALB/GLOB Ratio 0.6 RATIO (0.9-2.4); AST(SGOT) 43 U/L (15-37); Alanine Aminotransfer ALT/SGPT 29 U/L (13-56); Albumin, Serum 2.7 g/dL (3.2-5.0); Alkaline Phosphatase 138 U/L (45-117); Anion Gap 8 (5-15); BUN 21 mg/dL (7-18); BUN/Creat Ratio 15.3 RATIO (10-20); Calcium,Total 8.3 mg/dL (8.5-10.1); Chloride 108 mmol/L (98-107); Creatinine, Serum 1.37 mg/dL (0.55-1.02); EST Glomerular Filtration Rate 42 mL/min (>60); Est Glom Filt Rate - Afr Amer 51 mL/min (>60); Globulin 4.3 g/dL (2.2-4.2); Glucose 86 mg/dL (74-106); Potassium 4.4 mmol/L (3.5-5.1); Sodium Level 140 mmol/L (136-145)
== END ==
PROVIDERS: Internal Medicine Gastroenterology; Referring Provider Internal Medicine Critical Care Medicine; Visit Provider Internal Medicine Critical Care Medicine
DX: R91.1 Solitary pulmonary nodule (principal); K70.31 Alcoholic cirrhosis of liver with ascites; K82.4 Cholesterolosis of gallbladder; D64.9 Anemia, unspecified; F17.210 Nicotine dependence, cigarettes, uncomplicated
CPT/HCPCS: 36415; 71250; 80053; 85025; 85610

== ENCOUNTER → 2019-11-24 08:19 | Outpatient (CLI) | payer OTHER, SELFPAY ==
[2019-09-15 09:32] VITALS: BMI 24.1
[2019-11-23 07:27] VITALS: BMI 24.8
--- NOTE | 2019-11-24 08:21 | US_ITS ---
PROCEDURE: Ultrasound guided paracentesis. DATE OF EXAMINATION: November 24, 2019. INDICATION: Female, 59 years old. Ascites. PHYSICIAN: Hernandez Eli M.D. TECHNIQUE: The risks, benefits, and alternatives to the procedure were explained to the patient. The specific risks of bleeding, infection, and damage to bowel were detailed and accepted. Witnessed informed consent was obtained. The abdomen was ultrasonographically surveyed. An appropriate pocket of fluid was identified at the right lower quadrant. The skin were cleaned and prepped in the usual sterile fashion. Using ultrasound guidance, the peritoneal cavity was accessed with a 5-Lebanese paracentesis needle/catheter system. The trocar was removed. A total of 1450 ml of brad-colored fluid were removed from the peritoneal cavity. The catheter was removed and a sterile dressing was applied. The procedure was well tolerated. US/Paracentesis with US IMPRESSION: Ultrasound guided paracentesis. Electronically Signed: Hernandez Eli, at 11:06 EDT , Service support ,
[2019-11-24 09:11] VITALS: BP 122/70; BP 127/71; BP 127/72; PULSE 62; PULSE 64; PULSE 65; RESP 16; TEMP 36.8; O2SAT 99
== END ==
PROVIDERS: Referring Provider Internal Medicine Gastroenterology; Visit Provider Internal Medicine Gastroenterology
DX: K74.60 Unspecified cirrhosis of liver (principal)
CPT/HCPCS: 49083

== ENCOUNTER → 2019-12-01 08:18 | Outpatient (CLI) | payer OTHER, SELFPAY ==
[2019-10-17 13:39] VITALS: BMI 23.8
[2019-11-23 07:27] VITALS: BMI 24.8
--- NOTE | 2019-12-01 08:20 | US_ITS ---
PROCEDURE: Ultrasound guided paracentesis. DATE OF EXAMINATION: December 01, 2019. INDICATION: Female, 59 years old. Ascites. PHYSICIAN: Hernandez Eli M.D. TECHNIQUE: The risks, benefits, and alternatives to the procedure were explained to the patient. The specific risks of bleeding, infection, and damage to bowel were detailed and accepted. Witnessed informed consent was obtained. The abdomen was ultrasonographically surveyed. An appropriate pocket of fluid was identified at the right lower quadrant. The skin were cleaned and prepped in the usual sterile fashion. Using ultrasound guidance, the peritoneal cavity was accessed with a 5-Slovak paracentesis needle/catheter system. The trocar was removed. A total of 4300 ml of brad-colored fluid were removed from the peritoneal cavity. The catheter was removed and a sterile dressing was applied. The procedure was well tolerated. US/Paracentesis with US IMPRESSION: Ultrasound guided paracentesis. Electronically Signed: Hernandez Eli, at 9:49 EDT , Service support ,
[2019-12-01 08:45] VITALS: BP 103/67; BP 108/66; BP 138/70; PULSE 53; PULSE 59; PULSE 63; RESP 16; TEMP 36.7; O2SAT 98; O2SAT 99
[2019-12-01 09:31] VITALS: BP 133/84; PULSE 52; RESP 16; TEMP 36.6; O2SAT 98; BMI 23.2
[2019-12-01] MEDS: Albumin Human 25% (100 mL) 25 GM/100 ML BAG IV ×2 (09:50→11:27)
== END ==
LOC: US 08:18 → MEDOUTP 09:25
PROVIDERS: Referring Provider Internal Medicine Gastroenterology; Visit Provider Internal Medicine Gastroenterology
DX: K74.60 Unspecified cirrhosis of liver (principal)
CPT/HCPCS: 96365; 96366 ×2; 49083; P9047

== ENCOUNTER → 2019-12-08 08:12 | Outpatient (CLI) | payer OTHER, SELFPAY ==
[2019-10-17 13:39] VITALS: BMI 23.8
[2019-12-04 09:55] VITALS: BMI 23.2
--- NOTE | 2019-12-08 08:14 | US_ITS ---
PROCEDURE: ULTRASOUND GUIDED PARACENTESIS CLINICAL HISTORY: Female, 59 years old. ASCITES CONSENT: Informed consent obtained Time-Out Called: Yes. Consent form signed: Yes. PT-PTT Levels Checked: Yes. SEDATION: Local sedation with 2% XYLOCAINE TECHNIQUE: Sonographic guidance FINDINGS: FLUID PRE-PROCEDURE There is posterior enhancement. The findings appear anechoic. There is no loculation. After informed consent was obtained, patient was placed in the supine position on the sonographic table, an appropriate site for large volume paracentesis was determined. The area was marked, prepped and draped in a sterile manner, and 2% XYLOCAINE was used as local anesthetic. Under fluoroscopic guidance a drainage catheter was advanced into the peritoneal cavity and approximately 4650 mL of straw-colored serous fluid was withdrawn. Patient tolerated the procedure well with no immediate complications US/Paracentesis with US IMPRESSION: Successful sonographically guided large volume paracenteses Electronically Signed: Amado Orozco MD at 10:25 EDT , Service support ,
[2019-12-08 08:38] VITALS: BP 128/66; BP 131/65; BP 146/99; BP 147/64; PULSE 57; PULSE 59; PULSE 60; RESP 16; TEMP 36.7; O2SAT 100; O2SAT 98; O2SAT 99
[2019-12-08 09:28] VITALS: BP 143/94; PULSE 59; RESP 16; TEMP 36.8; O2SAT 100; BMI 23.8
[2019-12-08] MEDS: Albumin Human 25% (100 mL) 25 GM/100 ML BAG IV ×2 (09:59→11:17)
== END ==
LOC: US 08:13 → MEDOUTP 09:22
PROVIDERS: Referring Provider Internal Medicine Gastroenterology; Visit Provider Internal Medicine Gastroenterology
DX: K74.60 Unspecified cirrhosis of liver (principal)
CPT/HCPCS: 96365; 96366 ×2; 49083; P9047; A4216

== ENCOUNTER → 2019-12-15 08:20 | Outpatient (CLI) | payer OTHER, SELFPAY ==
[2019-10-17 13:39] VITALS: BMI 23.8
[2019-12-08 09:28] VITALS: BMI 23.8
--- NOTE | 2019-12-15 08:22 | US_ITS ---
PROCEDURE: Ultrasound guided paracentesis. DATE OF EXAMINATION: 12/15/2019.. INDICATION: Female, 59 years old. Ascites. PHYSICIAN: Hernandez Eli M.D. TECHNIQUE: The risks, benefits, and alternatives to the procedure were explained to the patient. The specific risks of bleeding, infection, and damage to bowel were detailed and accepted. Witnessed informed consent was obtained. The abdomen was ultrasonographically surveyed. An appropriate pocket of fluid was identified at the right lower quadrant. The skin were cleaned and prepped in the usual sterile fashion. Using ultrasound guidance, the peritoneal cavity was accessed with a 5-Portuguese paracentesis needle/catheter system. The trocar was removed. A total of 3150 ml of brad-colored fluid were removed from the peritoneal cavity. The catheter was removed and a sterile dressing was applied. The procedure was well tolerated. US/Paracentesis with US IMPRESSION: Ultrasound guided paracentesis. Electronically Signed: Hernandez Eli, at 9:27 EDT , Service support ,
[2019-12-15 08:40] VITALS: BP 117/63; BP 139/73; PULSE 58; PULSE 79; RESP 16; RESP 18; TEMP 36.6; O2SAT 100; O2SAT 99
== END ==
PROVIDERS: Referring Provider Internal Medicine Gastroenterology; Visit Provider Internal Medicine Gastroenterology
DX: K74.60 Unspecified cirrhosis of liver (principal)
CPT/HCPCS: 49083

== ENCOUNTER → 2019-12-22 08:16 | Outpatient (CLI) | payer OTHER, SELFPAY ==
[2019-10-17 13:39] VITALS: BMI 23.8
[2019-12-08 09:28] VITALS: BMI 23.8
--- NOTE | 2019-12-22 08:18 | US_ITS ---
PROCEDURE: Ultrasound guided paracentesis. DATE OF EXAMINATION: 12/22/2019. INDICATION: Female, 59 years old. Ascites. PHYSICIAN: Hernandez Eli M.D. TECHNIQUE: The risks, benefits, and alternatives to the procedure were explained to the patient. The specific risks of bleeding, infection, and damage to bowel were detailed and accepted. Witnessed informed consent was obtained. The abdomen was ultrasonographically surveyed. An appropriate pocket of fluid was identified at the right lower quadrant. The skin were cleaned and prepped in the usual sterile fashion. Using ultrasound guidance, the peritoneal cavity was accessed with a 5-Bahamian paracentesis needle/catheter system. The trocar was removed. A total of 4050 ml of brad-colored fluid were removed from the peritoneal cavity. The catheter was removed and a sterile dressing was applied. The procedure was well tolerated. US/Paracentesis with US IMPRESSION: Ultrasound guided paracentesis. Electronically Signed: Hernandez Eli, at 10:29 EDT , Service support ,
[2019-12-22 09:25] VITALS: BP 118/64; PULSE 56; RESP 16; TEMP 35.7; O2SAT 98; BMI 23.8
[2019-12-22] MEDS: Albumin Human 25% (100 mL) 25 GM/100 ML BAG IV ×2 (09:28→10:53)
[2019-12-22 09:33] VITALS: BP 126/74; BP 130/76; BP 141/71; PULSE 57; PULSE 58; PULSE 59; RESP 14; RESP 16; TEMP 36.7; O2SAT 100; O2SAT 99
[2019-12-22 12:50] VITALS: BP 123/50; PULSE 64; RESP 16; O2SAT 100
== END ==
LOC: US 08:17 → MEDOUTP 09:17
PROVIDERS: Referring Provider Internal Medicine Gastroenterology; Visit Provider Internal Medicine Gastroenterology
DX: K74.60 Unspecified cirrhosis of liver (principal)
CPT/HCPCS: 96365; 96366 ×2; 49083; P9047; A4216

== ENCOUNTER → 2019-12-29 08:23 | Outpatient (CLI) | payer OTHER, SELFPAY ==
[2019-10-17 13:39] VITALS: BMI 23.8
[2019-12-22 09:25] VITALS: BMI 23.8
--- NOTE | 2019-12-29 08:24 | US_ITS ---
PROCEDURE: Ultrasound guided paracentesis. DATE OF EXAMINATION: 12/29/2019. INDICATION: Female, 59 years old. Ascites. PHYSICIAN: Hernandez Eli M.D. TECHNIQUE: The risks, benefits, and alternatives to the procedure were explained to the patient. The specific risks of bleeding, infection, and damage to bowel were detailed and accepted. Witnessed informed consent was obtained. The abdomen was ultrasonographically surveyed. An appropriate pocket of fluid was identified at the left lower quadrant. The skin were cleaned and prepped in the usual sterile fashion. Using ultrasound guidance, the peritoneal cavity was accessed with a 5-Mongolian paracentesis needle/catheter system. The trocar was removed. A total of 2950 ml of brad-colored fluid were removed from the peritoneal cavity. The catheter was removed and a sterile dressing was applied. The procedure was well tolerated. US/Paracentesis with US IMPRESSION: Ultrasound guided paracentesis. Electronically Signed: Hernandez Eli, at 9:31 EDT , Service support ,
[2019-12-29 08:32] VITALS: BP 137/68; BP 139/74; BP 141/72; PULSE 62; PULSE 63; PULSE 64; RESP 18; TEMP 36.8; O2SAT 97; O2SAT 98
== END ==
PROVIDERS: Referring Provider Internal Medicine Gastroenterology; Visit Provider Internal Medicine Gastroenterology
DX: R18.8 Other ascites (principal); K74.60 Unspecified cirrhosis of liver
CPT/HCPCS: 49083

== ENCOUNTER → 2020-01-05 08:21 | Outpatient (CLI) | payer OTHER, SELFPAY ==
[2019-10-17 13:39] VITALS: BMI 23.8
[2019-12-22 09:25] VITALS: BMI 23.8
--- NOTE | 2020-01-05 08:22 | US_ITS ---
PROCEDURE: ULTRASOUND GUIDED PARACENTESIS CLINICAL HISTORY: Female, 59 years old. ASCITES CONSENT: The risks, benefits and alternatives to the procedure were explained to the patient, and the patient agreed to the procedure and signed the consent. SEDATION: Local Anesthesia STERILE BARRIER TECHNIQUE: The following sterile barrier precautions were used during the procedure: hand hygiene; use of 2% chlorhexidine aseptic; use of a cap, mask, sterile gown, sterile gloves, sterile full body drape, and a large sterile sheet. PROCEDURE/TECHNIQUE: The risks, benefits, and alternatives to the procedure were explained to patient, and the patient agreed to the procedure and signed a consent form for the procedure. TECHNIQUE: Under the ultrasound guidance using sterile technique and after infiltration of the skin and subcutaneous soft tissues with 10 mL of lidocaine 1% a 5 Czech drainage catheter is introduced in the lower part of the abdomen. 3150 mL of fluid were removed sample sent to lab for evaluation. The patient tolerated the procedure there was no immediate complication. FINDINGS: FLUID PRE-PROCEDURE There is posterior enhancement. The findings appear anechoic. There is no loculation. FLUID POST-PROCEDURE Amount of fluid drained: 3150 ml. US/Paracentesis with US IMPRESSION: Successful ultrasound-guided paracentesis. Electronically Signed: Boo Gonzalez, at 9:41 EDT Tel , Service support ,
[2020-01-05 08:45] VITALS: BP 119/59; BP 120/62; PULSE 60; PULSE 66; RESP 18; O2SAT 99
== END ==
PROVIDERS: Referring Provider Internal Medicine Gastroenterology; Visit Provider Internal Medicine Gastroenterology
DX: K74.60 Unspecified cirrhosis of liver (principal)
CPT/HCPCS: 49083

== ENCOUNTER → 2020-01-12 08:13 | Outpatient (CLI) | payer OTHER, SELFPAY ==
[2019-10-17 13:39] VITALS: BMI 23.8
[2019-12-22 09:25] VITALS: BMI 23.8
--- NOTE | 2020-01-12 08:15 | US_ITS ---
PROCEDURE: Ultrasound guided paracentesis. DATE OF EXAMINATION: 01/12/2020. INDICATION: Female, 59 years old. Ascites. PHYSICIAN: Hernandez Eli M.D. TECHNIQUE: The risks, benefits, and alternatives to the procedure were explained to the patient. The specific risks of bleeding, infection, and damage to bowel were detailed and accepted. Witnessed informed consent was obtained. The abdomen was ultrasonographically surveyed. An appropriate pocket of fluid was identified at the right lower quadrant. The skin were cleaned and prepped in the usual sterile fashion. Using ultrasound guidance, the peritoneal cavity was accessed with a 5-Tanzanian paracentesis needle/catheter system. The trocar was removed. A total of 4450 ml of brad-colored fluid were removed from the peritoneal cavity. The catheter was removed and a sterile dressing was applied. The procedure was well tolerated. US/Paracentesis with US IMPRESSION: Ultrasound guided paracentesis. Electronically Signed: Hernandez Eli, at 9:38 EDT , Service support ,
[2020-01-12 08:40] VITALS: BP 128/61; BP 151/76; PULSE 68; RESP 16; TEMP 36.9; O2SAT 97
[2020-01-12 09:21] VITALS: BP 116/44; PULSE 64; RESP 16; TEMP 36.6; O2SAT 97; BMI 24.1
[2020-01-12] MEDS: Albumin Human 25% (100 mL) 25 GM/100 ML BAG IV ×2 (09:28→10:59)
[2020-01-12 12:47] VITALS: BP 143/79; PULSE 69; RESP 16; O2SAT 99
== END ==
LOC: US 08:14 → MEDOUTP 09:11
PROVIDERS: Referring Provider Internal Medicine Gastroenterology; Visit Provider Internal Medicine Gastroenterology
DX: K74.60 Unspecified cirrhosis of liver (principal)
CPT/HCPCS: 96365; 96366 ×2; 49083; P9047; A4216

== ENCOUNTER → 2020-01-19 07:46 | Outpatient (CLI) | payer OTHER, SELFPAY ==
[2020-01-12 09:21] VITALS: BMI 24.1
--- NOTE | 2020-01-19 07:47 | US_ITS ---
PROCEDURE: Ultrasound guided paracentesis. DATE OF EXAMINATION: 01/19/2020. INDICATION: Female, 59 years old. Ascites. PHYSICIAN: Hernandez Eli M.D. TECHNIQUE: The risks, benefits, and alternatives to the procedure were explained to the patient. The specific risks of bleeding, infection, and damage to bowel were detailed and accepted. Witnessed informed consent was obtained. The abdomen was ultrasonographically surveyed. An appropriate pocket of fluid was identified at the left lower quadrant. The skin were cleaned and prepped in the usual sterile fashion. Using ultrasound guidance, the peritoneal cavity was accessed with a 5-Georgian paracentesis needle/catheter system. The trocar was removed. A total of 4600 ml of brad-colored fluid were removed from the peritoneal cavity. The catheter was removed and a sterile dressing was applied. The procedure was well tolerated. US/Paracentesis with US IMPRESSION: Ultrasound guided paracentesis. Electronically Signed: Hernandez Eli, at 9:16 EDT , Service support ,
[2020-01-19 08:52] VITALS: BP 126/63; BP 128/77; PULSE 63; PULSE 65; RESP 16; TEMP 36.8; O2SAT 97; O2SAT 99
[2020-01-19] MEDS: Albumin Human 25% (100 mL) 25 GM/100 ML BAG IV ×2 (08:56→10:16)
[2020-01-19] MEDS: 0.9% NaCl Peripheral Flush Adult/Peds IV (08:57)
[2020-01-19 09:00] VITALS: BP 138/80; PULSE 61; RESP 16; TEMP 37; O2SAT 96; BMI 23.8
== END ==
LOC: US 07:46 → MEDOUTP 08:49
PROVIDERS: Referring Provider Internal Medicine Gastroenterology; Visit Provider Internal Medicine Gastroenterology
DX: K74.60 Unspecified cirrhosis of liver (principal)
CPT/HCPCS: 96365; 96366 ×2; 49083; P9047; A4216

== ENCOUNTER → 2020-01-23 07:36 | Outpatient (CLI) | payer OTHER, SELFPAY ==
[2020-01-19 09:00] VITALS: BMI 23.8
[2020-01-23 08:17] LABS: Absolute Neutrophil Count 2.5 X10^3/uL (2.0-7.7); Basophil# 0.04 X10^3/uL; Basophil% 0.8 % (0-1); Eosinophil# 0.26 X10^3/uL; Eosinophils% 5.2 % (0-5); Hematocrit 38.3 % (37-47); Hemoglobin 12.2 g/dL (12.0-15.0); Lymphocyte % 35.9 % (19-41); Mean Corp Hgb Conc 31.9 g/dL (32-36); Mean Corpuscular Hgb 29.6 pg (27.0-32.0); Mean Platelet Vol. 10.6 fl (6.2-12.0); Monocyte# 0.41 X10^3/uL; Monocyte% 8.2 % (0-10); NRBC Flagged by Analyzer 0 % (0-5); Neutrophil % 49.7 % (47-70); Platelet Count 116 K/mm3 (150-450); RBC Distribution Width CV 15.6 % (11.6-14.6); RBC Distribution Width SD 53.1 fl (35.1-43.9); Red Blood Count 4.12 M/mm3 (4.2-5.4)
[2020-01-23 09:23] LABS: ALB/GLOB Ratio 0.9 RATIO (0.9-2.4); AST(SGOT) 37 U/L (15-37); Alanine Aminotransfer ALT/SGPT 20 U/L (13-56); Albumin, Serum 3.2 g/dL (3.2-5.0); Alkaline Phosphatase 112 U/L (45-117); Anion Gap 5 (5-15); BUN 23 mg/dL (7-18); BUN/Creat Ratio 17.3 RATIO (10-20); Calcium,Total 8.4 mg/dL (8.5-10.1); Chloride 115 mmol/L (98-107); Cholesterol 137 mg/dL (200); Creatinine, Serum 1.33 mg/dL (0.55-1.02); EST Glomerular Filtration Rate 43 mL/min (>60); Est Glom Filt Rate - Afr Amer 53 mL/min (>60); Globulin 3.4 g/dL (2.2-4.2); Glucose 85 mg/dL (74-106); High Density Lipoprotein 30 mg/dL; Potassium 4.1 mmol/L (3.5-5.1); Protein, Total 6.6 g/dL (6.4-8.2); Sodium Level 143 mmol/L (136-145); Thyroid Stim Hormone (TSH) 2.02 uIU/mL (0.358-3.74); Triglycerides 79 mg/dL; Very Low Density Lipoprotein 16 mg/dL (5-40)
[2020-01-23 09:49] LABS: International Normalized Ratio 1.3; Prothrombin Time (Protime)PT. 15.5 SECONDS (11.7-14.9)
[2020-01-24 07:00] LABS: AFP, Tumor Marker 3.2 ng/mL (0.0-8.3)
== END ==
PROVIDERS: Referring Provider Internal Medicine Gastroenterology; Visit Provider Internal Medicine Gastroenterology
DX: K70.31 Alcoholic cirrhosis of liver with ascites (principal); D64.9 Anemia, unspecified; K82.4 Cholesterolosis of gallbladder; E03.9 Hypothyroidism, unspecified; N18.4 Chronic kidney disease, stage 4 (severe); I47.1 Supraventricular tachycardia
CPT/HCPCS: 36415; 80053; 80061; 82105; 84439; 84443; 85025; 85610

== ENCOUNTER → 2020-01-26 08:16 | Outpatient (CLI) | payer OTHER, SELFPAY ==
[2020-01-12 09:21] VITALS: BMI 24.1
[2020-01-19 09:00] VITALS: BMI 23.8
--- NOTE | 2020-01-26 08:17 | US_ITS ---
PROCEDURE: Ultrasound guided paracentesis. DATE OF EXAMINATION: 01/26/2020. INDICATION: Female, 59 years old. Ascites. PHYSICIAN: Hernandez Eli M.D. TECHNIQUE: The risks, benefits, and alternatives to the procedure were explained to the patient. The specific risks of bleeding, infection, and damage to bowel were detailed and accepted. Witnessed informed consent was obtained. The abdomen was ultrasonographically surveyed. An appropriate pocket of fluid was identified at the right lower quadrant. The skin were cleaned and prepped in the usual sterile fashion. Using ultrasound guidance, the peritoneal cavity was accessed with a 5-Egyptian paracentesis needle/catheter system. The trocar was removed. A total of 3650 ml of brad-colored fluid were removed from the peritoneal cavity. The catheter was removed and a sterile dressing was applied. The procedure was well tolerated. US/Paracentesis with US IMPRESSION: Ultrasound guided paracentesis. Electronically Signed: Hernandez Eli, at 9:22 EDT , Service support ,
[2020-01-26 08:35] VITALS: BP 117/72; BP 122/68; BP 122/75; BP 132/65; PULSE 56; PULSE 59; PULSE 62; PULSE 63; RESP 16; RESP 18; TEMP 36.9; O2SAT 98; O2SAT 99
== END ==
PROVIDERS: Referring Provider Internal Medicine Gastroenterology; Visit Provider Internal Medicine Gastroenterology
DX: K74.60 Unspecified cirrhosis of liver (principal)
CPT/HCPCS: 49083

== ENCOUNTER → 2020-02-02 08:19 | Outpatient (CLI) | payer OTHER, SELFPAY ==
[2020-01-12 09:21] VITALS: BMI 24.1
[2020-01-19 09:00] VITALS: BMI 23.8
--- NOTE | 2020-02-02 08:21 | US_ITS ---
PROCEDURE: Ultrasound guided paracentesis. DATE OF EXAMINATION: 02/02/2020. INDICATION: Female, 59 years old. Ascites. PHYSICIAN: Hernandez Eli M.D. TECHNIQUE: The risks, benefits, and alternatives to the procedure were explained to the patient. The specific risks of bleeding, infection, and damage to bowel were detailed and accepted. Witnessed informed consent was obtained. The abdomen was ultrasonographically surveyed. An appropriate pocket of fluid was identified at the right lower quadrant. The skin were cleaned and prepped in the usual sterile fashion. Using ultrasound guidance, the peritoneal cavity was accessed with a 5-Haitian paracentesis needle/catheter system. The trocar was removed. A total of 2400 ml of brad-colored fluid were removed from the peritoneal cavity. The catheter was removed and a sterile dressing was applied. The procedure was well tolerated. US/Paracentesis with US IMPRESSION: Ultrasound guided paracentesis. Electronically Signed: Hernandez Eli, at 9:25 EDT , Service support ,
[2020-02-02 08:45] VITALS: BP 111/74; PULSE 58; RESP 16; O2SAT 98
== END ==
PROVIDERS: Referring Provider Internal Medicine Gastroenterology; Visit Provider Internal Medicine Gastroenterology
DX: K74.60 Unspecified cirrhosis of liver (principal)
CPT/HCPCS: 49083

== ENCOUNTER → 2020-02-09 08:14 | Outpatient (CLI) | payer OTHER, SELFPAY ==
[2020-01-12 09:21] VITALS: BMI 24.1
[2020-01-19 09:00] VITALS: BMI 23.8
--- NOTE | 2020-02-09 08:17 | US_ITS ---
PROCEDURE: Ultrasound guided paracentesis. DATE OF EXAMINATION: 02/09/2020. INDICATION: Female, 59 years old. Ascites. PHYSICIAN: Hernandez Eli M.D. TECHNIQUE: The risks, benefits, and alternatives to the procedure were explained to the patient. The specific risks of bleeding, infection, and damage to bowel were detailed and accepted. Witnessed informed consent was obtained. The abdomen was ultrasonographically surveyed. An appropriate pocket of fluid was identified at the left lower quadrant. The skin were cleaned and prepped in the usual sterile fashion. Using ultrasound guidance, the peritoneal cavity was accessed with a 5-Icelandic paracentesis needle/catheter system. The trocar was removed. A total of 4850 ml of brad-colored fluid were removed from the peritoneal cavity. The catheter was removed and a sterile dressing was applied. The procedure was well tolerated. US/Paracentesis with US IMPRESSION: Ultrasound guided paracentesis. Electronically Signed: Hernandez Eli, at 10:18 EDT , Service support ,
[2020-02-09 08:33] VITALS: BP 126/65; BP 147/75; BP 160/84; PULSE 57; PULSE 60; PULSE 63; RESP 16; RESP 18; TEMP 36.6; O2SAT 100; O2SAT 98; O2SAT 99
[2020-02-09 09:29] VITALS: BP 157/71; PULSE 63; RESP 14; TEMP 36.5; O2SAT 97; BMI 23.8
[2020-02-09] MEDS: 0.9% Saline Lock 10 ML Syringe IV (09:35)
[2020-02-09] MEDS: Albumin Human 25% (100 mL) 25 GM/100 ML BAG IV ×2 (09:41→11:13)
[2020-02-09 13:07] VITALS: BP 154/73; PULSE 70; RESP 16; O2SAT 98
== END ==
LOC: US 08:15 → MEDOUTP 09:14
PROVIDERS: Referring Provider Internal Medicine Gastroenterology; Visit Provider Internal Medicine Gastroenterology
DX: K74.60 Unspecified cirrhosis of liver (principal)
CPT/HCPCS: 96365; 96366 ×2; 49083; P9047; A4216

== ENCOUNTER → 2020-02-16 08:44 | Outpatient (CLI) | payer OTHER, SELFPAY ==
[2020-01-12 09:21] VITALS: BMI 24.1
[2020-02-09 09:29] VITALS: BMI 23.8
--- NOTE | 2020-02-16 08:47 | US_ITS ---
PROCEDURE: Ultrasound guided paracentesis. DATE OF EXAMINATION: 02/16/2020. INDICATION: Female, 59 years old. Ascites. PHYSICIAN: Hernandez Eli M.D. TECHNIQUE: The risks, benefits, and alternatives to the procedure were explained to the patient. The specific risks of bleeding, infection, and damage to bowel were detailed and accepted. Witnessed informed consent was obtained. The abdomen was ultrasonographically surveyed. An appropriate pocket of fluid was identified at the left lower quadrant. The skin were cleaned and prepped in the usual sterile fashion. Using ultrasound guidance, the peritoneal cavity was accessed with a 5-Yi paracentesis needle/catheter system. The trocar was removed. A total of 2450 ml of brad-colored fluid were removed from the peritoneal cavity. The catheter was removed and a sterile dressing was applied. The procedure was well tolerated. US/Paracentesis with US IMPRESSION: Ultrasound guided paracentesis. Electronically Signed: Hernandez Eli, at 9:57 EDT , Service support ,
[2020-02-16 09:05] VITALS: BP 154/83; BP 156/93; PULSE 66; RESP 16; O2SAT 94; O2SAT 97
--- NOTE | 2020-02-16 15:25 | CASEMGMT ---
RN Care Coordination Assessment: The following information was gathered via medical record review, phone conversations with pt?s PCP and her specialists, and conversation with pt @ bedside today.? Pt is a 59-yr-old female w/comorbidities including Alcoholic Cirrhosis of liver with ascites, CKD Stage IV, anemia, Chronic COPD, hypothyroidism, GERD, chronic lung nodule, chronic diastolic CHF, history of SVT, mild pulmonary hypertension, and malnutrition.? Pt has a history of smoking 2-3 PPD x 41 yrs and is a ?current every day smoker but states only smokes < ? PPD now.? ?Pt also with history of ETOH dependence and quit September 2017.? Pt states she has not had any relapses since/has been sober since then. Providers: PCP: Katharine Bass.? [phone]. ??Last appt 02/14/20.? ? Gastroenterology/Hepatology: Dr Aguirre [phone].? Pt states usually sees USABILITY ENGINEER Otilia Okeefe. ?Last appt September 2019.? Pt follows up q 6 months.? Pulmonology: Dr Gonzalez [phone]. ??Last visit: 11/2019.? Next scheduled appt: 05/09/20.? ?Dr Gonzalez follows pt for COPD and lung nodule. ?Recommends repeat Chest CT November 2020.? Has counseled pt re: Smoking Cessation.? Cardiology: Dr Enamorado ???[phone].? Last visit (Virtual) 12/04/19.? Next scheduled appt: 12/09/20.? Nephrology:? Dr Hernandez. Pt states has labs due on 02/18 and then a f/u appt with Dr Hernandez next week. -Pt had a fistula placed in lt arm October, for anticipated dialysis at that time, but states her kidney function has been improving since then and HD has not been needed. Vascular Surgeon: ([facility]): ?Dr Schwarz.? Follows for Moderate Carotid Stenosis. Last visit around May 2019. ???Plan is follow with a repeat carotid duplex in one year and to get baseline PAD testing at that time.? U/S Guided Paracentesis:?Pt gets these weekly and is being managed/ordered by Dr Aguirre.? Receives Albumin post-procedure if >5 L removed. Last Paracentesis: Today 02/16/20:? 2,450 ml removed Next scheduled paracentesis: 02/23/20 Hospitalizations and OP Visits: 09/2017: [place] admission.? (Initial diagnosis of Alcoholic Cirrhosis @ [facility] and transferred to [facility]) --Pt started getting weekly paracentesis @ [place] in?September 2017.? Pt then started coming to [facility] for paracentesis Jun 2018. 05/31-06/03/2018: [facility] Admission: Suspected SBP, Renal failure, anemia, elevated troponin 07/04-07/06/2018: [facility] Admission: SBP Pt states she was put on Xifaxan (Rifaximin) after this admission and has not had any hospitalizations @ [facility] since 06/2018.? She also denies any other hospitalizations at other hospitals.? Other Testing: Echo: 05/2019: Findings: Preserved EF, mild pulmonary hypertension, Stage II diastolic dysfunction EGD:? Pt gets yearly EGD?s by Dr Aguirre Colonoscopy: done Q [address] Aguirre. Last one done 2018, next due in 2021.? Insurance: Pt states currently has [employer].? Pt states she has received Social Security for 2 years and is now eligible for MCR. (Per [place] QIAN website income requirements, amt of social security income pt receives is just over the income to be eligible for QIAN). ? Pt voices concerns re: how much MCR will cover for her Paracentesis and Albumin infusions and what her eph-aw-sqxevg cost or co-pays she may be responsible for. Pt made aware, she may qualify for QIAN in addition to MCR. -She has an appt with Brittanie @ [facility] on March 18 for assistance with insurance and disability and plans to discuss these concerns with Brittanie at that time. Pt also states she has applied for the Extra Help Prescription Plan with [facility] and she does qualify and was approved for this.? -Per paperwork pt received, this plan will assist w/25% of cost of prescriptions. Finances:? Social Security: Receives $1,572/month ($18,864/yr).? Food stamps/ benefits (: $196/month currently. (States was only receiving $16/mo before COVID pandemic, but this amt was increased). Pt also receives assistance for [employer] Oil in her home through [employer]. Prescription Benefit: Yes, through [employer].? Pt states she occasionally will have minimal hyx-rn-ckjyon cost for some medications.? ?She states she has never had to pay more than $25 for a prescription.? She has not had any difficulty with paying this amount.? Accessibility to Medications: Pt states drives to the pharmacy to machine pecan picker her medication and does not have difficulty with getting them. She states her eshfcg-fi-quk would assist her with picking up medications if needed as well. [facility]acy: [facility] Medications: Hydroxyzine tablet [Atarax tablet] 10 mg PO TID PRN Metoprolol tartrate 225 mg PO BID Pantoprazole 40 mg po daily Rifaximin (Xifaxan ) 550 mg po BID Levothyroxine 50 mcg po daily Calcitriol 0.25 mcg po. Takes on MWF only ProAir Inhaler. 2 puffs inhalation BID. Medication Education: Pt has good understanding of her medications, what she is taking them for, and why she is taking them. Pt voices compliance w/taking them as prescribed. Diet/Food: Pt states she is on a low Na diet. Pt states she is not sure how many mg she is to stay under. She does state she reads the dietary labels when shopping and will not buy anything if Na is >1,000 mg, that she does not add extra salt to her food, and that she mostly buys fresh meat from her landlord who butchers. Pt states she ?hates cooking? but will ?try to make my own meals?, stating she will make some food or casseroles and then freezes left-overs to have meals to eat later. Fluid Restriction: Pt states she is on a 1.5 L fluid restriction. Pt states tries not to drink more than 3 (20 oz) bottles of water a day. Housing: Pt lives alone on the main level of a 2-story home w/1 step in. She is independent with ADL?s. Transportation: Pt states she has her own car and drives but she does not like to drive to bigger cities. Pt?s ryrlwa-vx-cqz, [place], drives pt to most doctor appts and assists w/transportation as needed. Living Will/Healthcare POA: Pt does not currently have LW or Healthcare POA. She states has paperwork for this but has not completed it yet. She wishes to talk with her family before completing this. Pt provided w/information on AD and given SW Rac card w/number to contact SW if she needs further assistance with this. She also plans to talk with Brittanie @ the [facility] at her next appt on Mar 18 about this. Next of Kin: Daughter, Neena. Brother, Jones Nguyen, who lives nearby. Brother, Aramis Nguyen, who lives in [place]. Sister, Shayla, who lives in [place]. Support: Pt?s seefbp-tg-wkr, [place] Nguyen, is very supportive. Pt states she goes to doctor appts w/her and takes notes at the appts and helps manage medical things for her. [place] is retired and lives in [place] and assists pt as needed. Pt states she is listed as her emergency contact as well. Additional stressors, family issues/concerns: Pt states her daughter, Neena, has 3 boys, but 2 of them have been removed from her care and ?placed with guardians?. She states things are starting to ?turn back around for her? and they are scheduled to meet with Neena?s youngest son this week, who she hasn?t seen for about 5 years. Pt is . She states she was for 27 yrs, but then , and after the divorce her and her ex- still remained friends. Her ex- 6 yrs-ago from a brain aneurysm. She states her ex- and her brother ([place]?s late ) both passed about the same year and that is when her ETOH abuse ?really got bad?. Pt became tearful while sharing this history with this RN CM. Active listening and emotional support provided. Pt state she does not have any friends and is not involved with a religion or local organization. She states, ?All I really have is my family?. ETOH/substance abuse: As stated above, pt w/hx of ETOH abuse, but quit drinking in 2018. Per medical history/documentation, pt has history of crack cocaine use approx 16 yrs ago and currently uses marijuana (occasionally). This was not discussed with pt at today?s visit. Follow Up: -Diet/Na restriction. Pt is aware she is to be on a low Na diet, but is not sure how many mg she should stay under. RN CM to f/u w/physicians about current orders, provide this info to patient, and provide education re: dietary restrictions, nutrition info, food labels, etc, to ensure pt has clear understanding/knowledge. -Pt does not have a f/u appt scheduled w/Dr Aguirre and last appt was in September 2019. RN CM to f/u about this and schedule appt as needed. -Insurance concerns. Pt has an appt with Brittanie Handy [facility] Mar 18 to discuss insurance concerns and for assistance. RN CM to follow and assist pt as needed. -Advanced Directives:? Pt voices would like to complete these but wishes to talk with her family first. Pt states would like to talk with Brittanie Handy about this as well. -RN CM to continue to be available for pt for any on-going needs, questions, or concerns and assist with care coordination as needed Pt has been provided w/this RN CM's contact number as well as Lead CM, Evelyn Culp's contact number and informed she can contact RN CM's if she needs any assistance. Pt voices appreciation. Jana ALCALA RN CM
== END ==
PROVIDERS: Referring Provider Internal Medicine Gastroenterology; Visit Provider Internal Medicine Gastroenterology
DX: K74.60 Unspecified cirrhosis of liver (principal); R18.8 Other ascites
CPT/HCPCS: 49083

== ENCOUNTER → 2020-02-19 09:02 | Outpatient (CLI) | payer OTHER, SELFPAY ==
[2019-09-15 09:32] VITALS: BMI 24.1
[2020-02-09 09:29] VITALS: BMI 23.8
[2020-02-19 10:08] LABS: Hematocrit 38.1 % (37-47); Hemoglobin 12.4 g/dL (12.0-15.0); Mean Corp Hgb Conc 32.5 g/dL (32-36); Mean Corpuscular Hgb 30.2 pg (27.0-32.0); Mean Corpuscular Volume 92.9 fL (81-99); Mean Platelet Vol. 10.9 fl (6.2-12.0); Platelet Count 116 K/mm3 (150-450); RBC Distribution Width CV 14.9 % (11.6-14.6); RBC Distribution Width SD 51.4 fl (35.1-43.9); White Blood Count 5.2 K/mm3 (4.4-11.0)
[2020-02-19 10:35] LABS: Albumin, Serum 3.1 g/dL (3.2-5.0); BUN 23 mg/dL (7-18); BUN/Creat Ratio 16.8 RATIO (10-20); Calcium,Total 8.3 mg/dL (8.5-10.1); Chloride 110 mmol/L (98-107); Creatinine, Serum 1.37 mg/dL (0.55-1.02); EST Glomerular Filtration Rate 42 mL/min (>60); Est Glom Filt Rate - Afr Amer 51 mL/min (>60); Glucose 90 mg/dL (74-106); Phosphorus 3.7 mg/dL (2.5-4.9); Potassium 3.9 mmol/L (3.5-5.1); Sodium Level 141 mmol/L (136-145)
[2020-02-21 08:03] LABS: PTHIN 114.2 pg/mL (18.4-80.1)
== END ==
PROVIDERS: Referring Provider Internal Medicine Nephrology; Visit Provider Internal Medicine Nephrology
DX: N18.4 Chronic kidney disease, stage 4 (severe) (principal); N25.81 Secondary hyperparathyroidism of renal origin
CPT/HCPCS: 36415; 80069; 83970; 85027

== ENCOUNTER → 2020-02-23 10:17 | Outpatient (CLI) | payer OTHER, SELFPAY ==
[2020-01-12 09:21] VITALS: BMI 24.1
[2020-02-09 09:29] VITALS: BMI 23.8
--- NOTE | 2020-02-23 10:21 | US_ITS ---
PROCEDURE: ULTRASOUND GUIDED PARACENTESIS CLINICAL HISTORY: Female, 59 years old. ASCITES CONSENT: The risks, benefits and alternatives to the procedure were explained to the patient, and the patient agreed to the procedure and signed the consent. SEDATION: Local Anesthesia STERILE BARRIER TECHNIQUE: The following sterile barrier precautions were used during the procedure: hand hygiene; use of 2% chlorhexidine aseptic; use of a cap, mask, sterile gown, sterile gloves, sterile full body drape, and a large sterile sheet. PROCEDURE/TECHNIQUE: The risks, benefits, and alternatives to the procedure were explained to patient, and the patient agreed to the procedure and signed a consent form for the procedure. TECHNIQUE: Under the ultrasound guidance using sterile technique and after infiltration of the skin and subcutaneous soft tissues with 10 mL of lidocaine 1% a 5 Slovenian drainage catheter is introduced in the lower part of the abdomen. 3550 mL of fluid were removed sample sent to lab for evaluation. The patient tolerated the procedure there was no immediate complication. FINDINGS: FLUID PRE-PROCEDURE There is posterior enhancement. The findings appear anechoic. There is no loculation. FLUID POST-PROCEDURE Amount of fluid drained: 3550 ml. US/Paracentesis with US IMPRESSION: Successful ultrasound-guided paracentesis. Electronically Signed: Boo Gonzalez, at 14:22 EDT Tel , Service support ,
--- NOTE | 2020-02-23 11:40 | NURSING ---
PT APPRECIATIVE OF RN CM INVOLVEMENT IN CARE TO SERVE LIAISON. [place] [facility] [place] DIS[place] FINANCES/TRANSITION TO MEDICARE. SCHEDULED TO SEE DR. NUNN NEXT WEEK.
--- NOTE | 2020-02-23 12:12 | NURSING ---
HEMATOMA RE-EVALUATED AFTER MEETING WITH CM. SWELLING DECREASING IN SIZE. NO CHANGE IN DRAINAGE ON OPSITE GAUZE. PT TO MAIN ENTRANCE BY ROSA/TIKI.
--- NOTE | 2020-02-23 13:00 | CASEMGMT ---
Addendum entered by Gavin Nunn 03/01/20 18:19: Correction: the entered comment below re: VM message from Sonia @ Dr Boyce's office was entered in error. This was re: another pt, not for Brittanie [place]. Addendum entered by Gavin Nunn 03/01/20 18:17: 10/13: Received VM message from Sonia @ Dr Boyce's office, stating pt no longer needs to continue to see Dr Boyce since Dr Richard is seeing pt @ [facility]. Sonia states they will notify pt of same. Addendum entered by Gavin Nunn 03/01/20 08:49: 02/22: ? ANJALI COELHO Care Coordination F/U: ANJALI evans/Brittanie (pt advocate, CM, outreach navigator[facility]. [facility], pt's appt on Mar 18 at 9 AM is with GRIFFIN Caldwell, not with herself. Brittanie made aware pt would like an appt with her to discuss insurance and finances. ?She was made aware of pt qualifying for MCR now, as she has received?Social Security Disability?for 2 years now and that pt has concerns with switching to MCR re: [id number] costs. She also made aware pt would like to speak with her to determine if she may qualify for QIAN as well or other options for supplemental coverage and to discuss AD. ? Call placed to pt and she was made aware her appt on Mar 18 is with Paulette MOYA, not with Brittanie for insurance/finances. ?This ANJALI COELHO coordinated b/w pt and Brittanie @ [facility] an appt for Mar 18 @ 10 AM (following the appt with Paulette MOYA at 9 AM). Original Note: ANJALI COELHO Care Coordination: Met with pt today 02/22 after paracentesis. Pt's next scheduled US Guided paracentesis is Wednesday03/01/20. Pt shared with ANJALI COELHO about being able to meet with her 8-yr-old grandson this past weekend who she has not seen in about 5 years. She states the visit went very well and she is looking forward to upcoming visits with him, as the plans are to try to see him every few weeks. She states her daughter, Neena, has 3 sons, and d/t drug issues her daughter lost custody of 2 of them. She states her daughter has been clean for 3 years now and is on the right track. Pt states she (pt) was also not permitted to see Juan Manuel for several years and feels her alcoholism attributed to much of this as well. Pt tearful on/off while sharing with ANJALI COELHO. She voices is so thankful to be where she is today compared to several years ago. ANJALI COELHO practiced active listening and allowed pt to express her thoughts/feelings. ANJALI COELHO congratulated pt on her accomplishments of staying sober and progress in her life. Appts: Pt has f/u appt @ [facility] on Mar 18, that she understood to be for assistance w/financial paperwork, MCR, disability, etc. Dr Hernandez: Has upcoming appt 02/27. To have labs drawn prior to this appt. Finances/Insurance:Per pt, has upcoming appt @ [facility] on Mar 18 with Brittanie to discuss insurance as she is now eligible for MCR. Pt states she is nervous about changes with her SS income and her insurance. Her sis-in-law, [place], plans to go to this appt with her. Diet/Fuid Restriction: Pt follows a low Na+ diet (she thinks is supposed to be 1,500 mg) and 2 L fluid restriction daily. F/u Plan: Financial: Assist as needed w/any on-going financial concerns and help coordinate appts as needed. F/u with Dr Aguirre re: next scheduled appt and on-going needs/concerns. Continue to provide emotional support and encouragement. ANJALI COELHO to continue to meet with pt and be available to assist w/any care coordination as needed. Jana ALCALA RN, CM
[2020-02-23 13:22] VITALS: BP 117/67; BP 119/67; BP 129/62; BP 132/91; BP 138/63; PULSE 57; PULSE 59; PULSE 61; PULSE 67; RESP 14; RESP 17; O2SAT 100; O2SAT 98; O2SAT 99
--- NOTE | 2020-02-29 12:20 | CASEMGMT ---
RN Care Coordination Follow-up: Call placed to Dr. Aguirre's office on 02/26/2020 to clarify treatment plan: 1. Diet/Fluid restriction: It was stated that this is reviewed with patient at each of her follow-up appointments and would have been discussed at her last appointment in Sep, 2019. When asked for a specific instruction, none was provided. Enquired if a 1500mL fluid restriction and 2000mg Na restriction was preferred/appropriate, this was stated to be fine. 2. Follow-up appointments: Pt is to follow-up every six months. Pt's last appointment was in September of 2019. Pt is currently due for a follow-up appointment in March 2020. 3. Blood work: Pt is to have standing order blood work obtained every 6 months for which she would have been provided an order at her September visit. The last blood work was obtained in September. Pt is due to her routine blood work to be completed in March 2020. 4. EGD: Pt is to have this completed each year and will be due in August,. 5. Transplant/Tips candidacy: Pt was referred to the [facility] system for evaluation by Avril in Dr. Aguirre's office. Pt's insurance prefers [facility]. This ANJALI COELHO's call was forwarded to Avril and her voicemail was received. A message was left requesting a return call for continued care coordination. A return call has not been received as of this date 02/29/2020 at 1227. Will follow-up with patient regarding her understanding of this process/referral. Hanny uClp RN CM
== END ==
PROVIDERS: Referring Provider Internal Medicine Gastroenterology; Visit Provider Internal Medicine Gastroenterology
DX: K74.60 Unspecified cirrhosis of liver (principal)
CPT/HCPCS: 49083

== ENCOUNTER → 2020-03-01 10:15 | Outpatient (CLI) | payer OTHER, SELFPAY ==
[2020-02-09 09:29] VITALS: BMI 23.8
--- NOTE | 2020-03-01 10:17 | US_ITS ---
PROCEDURE: Ultrasound guided paracentesis. DATE OF EXAMINATION: 03/01/2020. INDICATION: Female, 59 years old. Ascites. PHYSICIAN: Hernandez Eli M.D. TECHNIQUE: The risks, benefits, and alternatives to the procedure were explained to the patient. The specific risks of bleeding, infection, and damage to bowel were detailed and accepted. Witnessed informed consent was obtained. The abdomen was ultrasonographically surveyed. An appropriate pocket of fluid was identified at the left lower quadrant. The skin were cleaned and prepped in the usual sterile fashion. Using ultrasound guidance, the peritoneal cavity was accessed with a 5-Bulgarian paracentesis needle/catheter system. The trocar was removed. A total of 4950 ml of brad-colored fluid were removed from the peritoneal cavity. The catheter was removed and a sterile dressing was applied. The procedure was well tolerated. US/Paracentesis with US IMPRESSION: Ultrasound guided paracentesis. Electronically Signed: Hernandez Eli, at 11:32 EDT , Service support ,
[2020-03-01 10:29] VITALS: BP 123/66; BP 134/58; BP 151/58; PULSE 60; PULSE 61; RESP 18; TEMP 36.5; O2SAT 98; O2SAT 99
[2020-03-01 11:25] VITALS: BP 102/69; PULSE 57; RESP 16; TEMP 36.3; O2SAT 97; BMI 23.8
--- NOTE | 2020-03-01 11:30 | CASEMGMT ---
ANJALI COELHO Care Coordination: 03/01: Met with pt today after U/S Guided paracentesis, while getting Albumin infusion. Pt had 4,950 ml ascitic fluid removed today. Next scheduled paracentesis is 03/08. Appts: Dr Hernandez: Pt states she had labs drawn this week and then saw Dr Hernandez Wed 02/27. She states her labwork was all good. Next appt with Dr Hernandez is scheduled for August 28, 2020 Dr Gonzalez: Pt reports her appt with him has now been changed to May 13. Dr Aguirre: Pt aware she is to have the next EGD done @ end of August. Pt made aware she is due for her [address] Aguirre in March. She does not have an appt scheduled. She plans to call the office to make this appt if she does not hear from them by next week. She states she has standing order for labs every [address] Aguirre (she has them drawn @ [facility]) and then another set of standing order labs every 6 months (that she needs to fast 12 hrs for). She reports the Q 6 months labs are not on schedule with her Q 6 months appts. She states just had the 6 months labs drawn in January, so will not be due to have these done again until July 2020. Pt reports her iron levels are low but Dr Aguirre does not want her to take an iron supplement d/t her stomach issues. TIPS/Liver candidacy: Pt states she went to [facility] in 2019 to discuss process/options of liver transplant. She states [facility] was the closest location that does transplants that was in-network with her insurance in 2019. She thinks she recalls they informed her she was not a candidate for TIPS. She states she was informed that if she would proceed with a liver transplant, that she should have a double transplant (kidneys and liver). They discussed options with her and the importance of having a good family and emotional support system and finances. She feels that she does not have a good enough family/emotional support system to proceed with a transplant, stating, I'm just not up to it. I just don't have the support I would need to go through that. She also stated that the travel/transportation/gas would be too much with [facility] being so far away and she does not want to waste anyone's time. She states, I realize I did this to myself and I just have to live with it. I do okay with the procedures and I've decided to just continue with the maintenance of it like I have been. Pt was tearful on/off while sharing with this rewriter. ANJALI COELHO actively listened and allowed pt to express her thoughts/feelings. Pt states, she does realize, when her insurance changes, that there may be a closer location that could provide this service but she does not think it will be something she is interested in at this time. Diet/Fluid Restriction: Dr Hernandez has instructed her to follow a High Protein diet, as well as following a low Na+ diet (she tries to stay under 2 gm) and 1.5 L fluid restriction. She rarely eats fast food and if she does she eats a lower Na+ meal that same day to keep daily allowable mg within limits. She voices good understanding of foods that she should avoid and how to properly measure fluid intake. Plan/Follow-Up: -Assist as needed with any on-going financial concerns and help coordinate appts as needed. Appt with Dr Aguirre is due in March. F/U with pt/office to ensure this appt is scheduled. -Appt @ [facility] remains on Mar 18 to meet the [employer] and with Brittanie for insurance/financial assistance. ANJALI COELHO will continue to be available and assist w/care coordination as needed. Jana ALCALA RN, CM
[2020-03-01] MEDS: Albumin Human 25% (100 mL) 25 GM/100 ML BAG IV ×2 (11:36→13:09)
[2020-03-01 14:59] VITALS: BP 137/74; PULSE 70; RESP 16; TEMP 37; O2SAT 99
== END ==
LOC: US 10:15 → MEDOUTP 11:16
PROVIDERS: Referring Provider Internal Medicine Gastroenterology; Visit Provider Internal Medicine Gastroenterology
DX: K74.60 Unspecified cirrhosis of liver (principal)
CPT/HCPCS: 96365; 96366 ×2; 49083; P9047

== ENCOUNTER → 2020-03-08 08:16 | Outpatient (CLI) | payer OTHER, SELFPAY ==
[2020-02-09 09:29] VITALS: BMI 23.8
[2020-03-01 11:25] VITALS: BMI 23.8
--- NOTE | 2020-03-08 08:18 | US_ITS ---
PROCEDURE: Ultrasound guided paracentesis. DATE OF EXAMINATION: 03/08/2020. INDICATION: Female, 59 years old. Ascites. PHYSICIAN: Hernandez Eli M.D. TECHNIQUE: The risks, benefits, and alternatives to the procedure were explained to the patient. The specific risks of bleeding, infection, and damage to bowel were detailed and accepted. Witnessed informed consent was obtained. The abdomen was ultrasonographically surveyed. An appropriate pocket of fluid was identified at the right lower quadrant. The skin were cleaned and prepped in the usual sterile fashion. Using ultrasound guidance, the peritoneal cavity was accessed with a 5-Cayman Islander paracentesis needle/catheter system. The trocar was removed. A total of 4900 ml of brad-colored fluid were removed from the peritoneal cavity. The catheter was removed and a sterile dressing was applied. The procedure was well tolerated. US/Paracentesis with US IMPRESSION: Ultrasound guided paracentesis. Electronically Signed: Hernandez Eli, at 9:42 EDT , Service support ,
[2020-03-08 08:33] VITALS: BP 117/61; BP 120/69; BP 145/81; PULSE 60; PULSE 61; RESP 14; RESP 16; TEMP 36.9; O2SAT 97; O2SAT 98
[2020-03-08 09:44] VITALS: BP 128/59; PULSE 58; RESP 18; TEMP 36.3; O2SAT 100; BMI 23.8
[2020-03-08] MEDS: Albumin Human 25% (100 mL) 25 GM/100 ML BAG IV ×2 (10:18→11:45)
--- NOTE | 2020-03-08 12:17 | CASEMGMT ---
ANJALI COELHO Care coordination Note: Met with pt @ the infusion suite while pt receiving Albumin infusion post paracentesis. She states she has had a good week and is looking forward to a meeting with her grandson again this weekend. Discussed the following: *Appt: Pt states she has not heard from Dr Aguirre's office yet re: making an appt for her in Mar. She still plans to call Dr Aguirre's office to set this up but wanted to wait until the end the month to call them. *Blood work: Pt plans to have her next Q 2 month labs done around Mar 25. Next Q 6 month labs due: 07/2020 *Medications: Pt states she does not have a current medication list with her today, but that she has given this information to [facility]. ANJALI COELHO did not review medications with pt at this time. Will obtain list of pt's medications w/Dr Aguirre's office to verify med list is current/same as [facility]'s. Pt states she has a good understanding of her medications/dosages and does not have any questions about them at this time. States she does not need any refills at present and is signed up for the text alert from [facility] when refills are due. *Transplant/Tips candidacy: Pt states may re-consider looking into this again once her insurance changes, if there would be a location closer than [place] that she could go to. ANJALI COELHO encouraged pt to discuss this with Dr Aguirre at her f/u appt. Folluw up plan: Will f/u with Dr Aguirre's office re: pt's interest in further discussion about transplant referral, Nov appt needing scheduled, and to obtain a current med list from their office. Jana ALCALA RN, CM
[2020-03-08 13:33] VITALS: BP 120/66; PULSE 62; RESP 18; TEMP 36.5; O2SAT 97
== END ==
PROVIDERS: Referring Provider Internal Medicine Gastroenterology; Visit Provider Internal Medicine Gastroenterology
DX: K74.60 Unspecified cirrhosis of liver (principal)
CPT/HCPCS: 96365; 96366 ×2; 49083; P9047; A4216

== ENCOUNTER → 2020-03-15 10:21 | Outpatient (CLI) | payer OTHER, SELFPAY ==
[2020-02-09 09:29] VITALS: BMI 23.8
[2020-03-08 09:44] VITALS: BMI 23.8
--- NOTE | 2020-03-15 10:26 | US_ITS ---
PROCEDURE: Ultrasound guided paracentesis. DATE OF EXAMINATION: 03/15/2020. INDICATION: Female, 59 years old. Ascites. PHYSICIAN: Hernandez Eli M.D. TECHNIQUE: The risks, benefits, and alternatives to the procedure were explained to the patient. The specific risks of bleeding, infection, and damage to bowel were detailed and accepted. Witnessed informed consent was obtained. The abdomen was ultrasonographically surveyed. An appropriate pocket of fluid was identified at the right lower quadrant. The skin were cleaned and prepped in the usual sterile fashion. Using ultrasound guidance, the peritoneal cavity was accessed with a 5-Faroese paracentesis needle/catheter system. The trocar was removed. A total of 3900 ml of brad-colored fluid were removed from the peritoneal cavity. The catheter was removed and a sterile dressing was applied. The procedure was well tolerated. US/Paracentesis with US IMPRESSION: Ultrasound guided paracentesis. Electronically Signed: Hernandez Eli, at 12:06 EDT , Service support ,
[2020-03-15 10:38] VITALS: BP 116/53; BP 133/65; BP 136/73; PULSE 57; PULSE 60; PULSE 63; RESP 16; RESP 18; O2SAT 100; O2SAT 97; O2SAT 98
[2020-03-15 11:24] VITALS: BP 97/57; PULSE 61; RESP 16; TEMP 36.9; BMI 23.8
[2020-03-15] MEDS: Albumin Human 25% (100 mL) 25 GM/100 ML BAG IV ×2 (12:10→13:46)
[2020-03-15] MEDS: 0.9% Saline Lock 10 ML Syringe IV (12:10)
--- NOTE | 2020-03-20 16:30 | CASEMGMT ---
ANJAIL COELHO Care Coordination Follow-up: Call placed to pt and the following was discussed: Insurance: Pt had appt with Brittanie pt advocate/CM, @ [facility] on [facility]/18 and reviewed insurance/QIAN with her. She states she does not think she is eligible for QIAN, and states she decided to sign up for [employer] and did this today via phone. She called Dr Hernandez's office and Dr Aguirre's office and they both are in-network with [facility]. She states she may need to switch PCP's d/t insurance and plans to call Dr Ny's office tomorrow and since she has seen in to see Dr Berry in the past, she may be interested in switching to her. She states she has Dr Ny's phone number but does not have Dr Berry's. This was provided to her at this time. She was offered a list of other local PCP's but states she does not have much time to talk on the phone and declines at this time. Dr Aguirre: Pt states Dr Aguirre's office has not called her yet to schedule her 6-month appt (due in Mar). She states she did not talk to them about this when she called them to inquire if they were in-network with [facility]. She denies having any questions/concerns at this time, but states is an RN CM would be available either call her at a later time or to meet with her on Wednesday when she comes in for the paracentesis she could talk with someone in more detail at that time. Jana ALCALA RN CM
== END ==
LOC: US 10:21 → MEDOUTP 11:14
PROVIDERS: Referring Provider Internal Medicine Gastroenterology; Visit Provider Internal Medicine Gastroenterology
DX: K74.60 Unspecified cirrhosis of liver (principal)
CPT/HCPCS: 96365; 96366 ×2; 49083; P9047; A4216

== ENCOUNTER → 2020-03-22 10:19 | Outpatient (CLI) | payer MEDICARE, SELFPAY ==
[2020-03-01 11:25] VITALS: BMI 23.8
[2020-03-15 11:24] VITALS: BMI 23.8
--- NOTE | 2020-03-22 10:25 | US_ITS ---
PROCEDURE: Ultrasound guided paracentesis. DATE OF EXAMINATION: 03/22/2020. INDICATION: Female, 59 years old. Ascites. PHYSICIAN: Hernandez Eli M.D. TECHNIQUE: The risks, benefits, and alternatives to the procedure were explained to the patient. The specific risks of bleeding, infection, and damage to bowel were detailed and accepted. Witnessed informed consent was obtained. The abdomen was ultrasonographically surveyed. An appropriate pocket of fluid was identified at the left lower quadrant. The skin were cleaned and prepped in the usual sterile fashion. Using ultrasound guidance, the peritoneal cavity was accessed with a 5-Bulgarian paracentesis needle/catheter system. The trocar was removed. A total of 4050 ml of brad-colored fluid were removed from the peritoneal cavity. The catheter was removed and a sterile dressing was applied. The procedure was well tolerated. US/Paracentesis with US IMPRESSION: Ultrasound guided paracentesis. Electronically Signed: Hernandez Eli, at 12:30 EST , Service support ,
[2020-03-22 10:33] VITALS: BP 122/66; BP 140/57; BP 142/68; PULSE 57; PULSE 62; PULSE 64; RESP 16; RESP 18; TEMP 36.9; O2SAT 98; O2SAT 99
[2020-03-22 11:23] VITALS: BP 119/72; PULSE 67; RESP 16; TEMP 37.1; O2SAT 99; BMI 23.8
[2020-03-22] MEDS: Albumin Human 25% (100 mL) 25 GM/100 ML BAG IV ×2 (11:40→13:10)
--- NOTE | 2020-03-22 13:17 | CASEMGMT ---
RN Care Coordination Follow-up: This RN CM met with patient in outpatient infusion bay during albumin administration. Pt states she has been feeling pretty good recently. We discussed the following: Symptoms: She relays she does have intermittent nausea once or twice a week but she generally knows the triggers and tries to avoid these. Triggers include eating before bedtime, not eating soon enough when she becomes hungry, or when she eats specific items. She denies having any blood in her emesis and states most of the time she just has nausea without emesis. Insurance: Pt states she did meet with Brittanie at the [facility] on Wednesday and they discussed insurance options. She has spoken with a [facility] cash applications representative and is signed up for them. She relays that she only needs to confirm her PCP. She will need to establish with a PCP outside of the [facility] and they are not in network with [facility]. She was aware of Dr. Ny and Dr. Berry. A list of [facility] and internal medicine physicians with their corresponding addresses and phone numbers was provided to Brittanie. She states she had seen Dr. Duane Gonzalze a long time ago and that she had also had a visit with Trell Plaza NP in Dr. Berry's office. She states she will call them Wednesday to get established and have her records transferred from the [facility]. Brittanie states she confirmed with Dr. Aguirre's office that they are in network with [facility] also. Pt states there was something that she did not qualify for but she did not understand what that was. This RN CM placed a call to Brittanie at the [facility] and left a voicemail message requesting a return call to further clarify what this may have been. When asked patient about QIAN, pt felt this may have been what she did not qualify for due to her age? Appointment: Discussed follow-up with Dr. Aguirre. Pt states she prefers to not follow-up with him and feels they monitor her labs regularly and the results of her paracentesis and does not see the need for an inpatient visit. She did say she will ask them about an appointment on Wednesday when she calls them re: her new insurance. Transplant: Pt states she has accepted her current state and does not want to pursue a transplant. She would prefer to continue with her current treatments and do the best she can to ensure she has the best quality of life she can in her remaining years. Follow-up Plan: Dr. Aguirre's office is closed on this date. Will follow-up with them regarding a current medication list. Will follow-up with Brittanie at the [facility] to clarify the service pt is not qualified for. Pt denied any further questions or needs at this time. Hanny Culp RN CM
[2020-03-22 14:58] VITALS: BP 138/70; PULSE 72; RESP 16; O2SAT 98
== END ==
PROVIDERS: Referring Provider Internal Medicine Gastroenterology; Visit Provider Internal Medicine Gastroenterology
DX: K74.60 Unspecified cirrhosis of liver (principal)
CPT/HCPCS: 96365; 96366 ×2; 49083; P9047

== ENCOUNTER 2020-03-26 09:03 | Outpatient (RCR) | payer MEDICARE, SELFPAY ==
[2020-03-22 11:23] VITALS: BMI 23.8
[2020-03-26 10:17] LABS: Absolute Lymphocyte Count 1.49 X10^3/uL (0.83-4.51); Absolute Neutrophil Count 2.7 X10^3/uL (2.0-7.7); Basophil# 0.04 X10^3/uL; Basophil% 0.8 % (0-1); Eosinophil# 0.24 X10^3/uL; Eosinophils% 4.9 % (0-5); Hematocrit 38.3 % (37-47); Hemoglobin 12.2 g/dL (12.0-15.0); Lymphocyte # 1.49 X10^3/ul (4.0); Lymphocyte % 30.3 % (19-41); Mean Corp Hgb Conc 31.9 g/dL (32-36); Mean Corpuscular Volume 94.1 fL (81-99); Mean Platelet Vol. 10.7 fl (6.2-12.0); Monocyte# 0.43 X10^3/uL; Monocyte% 8.7 % (0-10); NRBC Flagged by Analyzer 0 % (0-5); Neutrophil # 2.71 X10^3/uL (2.7-7.7); Neutrophil % 55.1 % (47-70); Platelet Count 120 K/mm3 (150-450); RBC Distribution Width CV 15.2 % (11.6-14.6); RBC Distribution Width SD 52.6 fl (35.1-43.9); Red Blood Count 4.07 M/mm3 (4.2-5.4); White Blood Count 4.9 K/mm3 (4.4-11.0)
[2020-03-26 10:32] LABS: International Normalized Ratio 1.3; Prothrombin Time (Protime)PT. 15.6 SECONDS (11.7-14.9)
== END 2020-03-26 18:00 | disposition home or self-care (01) ==
LOC: LAB 09:03
PROVIDERS: Referring Provider Internal Medicine Gastroenterology; Visit Provider Internal Medicine Gastroenterology
DX: K70.31 Alcoholic cirrhosis of liver with ascites (principal); D64.9 Anemia, unspecified; K82.4 Cholesterolosis of gallbladder
CPT/HCPCS: 36415; 85025; 85610

== ENCOUNTER → 2020-03-29 10:21 | Outpatient (CLI) | payer MEDICARE, SELFPAY ==
[2020-03-01 11:25] VITALS: BMI 23.8
[2020-03-22 11:23] VITALS: BMI 23.8
--- NOTE | 2020-03-29 10:24 | US_ITS ---
PROCEDURE: Ultrasound guided paracentesis. DATE OF EXAMINATION: 03/29/2020. INDICATION: Female, 59 years old. Ascites. PHYSICIAN: Hernandez Eli M.D. TECHNIQUE: The risks, benefits, and alternatives to the procedure were explained to the patient. The specific risks of bleeding, infection, and damage to bowel were detailed and accepted. Witnessed informed consent was obtained. The abdomen was ultrasonographically surveyed. An appropriate pocket of fluid was identified at the right lower quadrant. The skin were cleaned and prepped in the usual sterile fashion. Using ultrasound guidance, the peritoneal cavity was accessed with a 5-Maldivian paracentesis needle/catheter system. The trocar was removed. A total of 2950 ml of brad-colored fluid were removed from the peritoneal cavity. The catheter was removed and a sterile dressing was applied. The procedure was well tolerated. US/Paracentesis with US IMPRESSION: Ultrasound guided paracentesis. Electronically Signed: Hernandez Eli, at 11:17 EST , Service support ,
[2020-03-29 10:40] VITALS: BP 136/66; BP 146/68; BP 151/72; PULSE 63; PULSE 66; RESP 16; RESP 18; O2SAT 97
== END ==
PROVIDERS: Referring Provider Internal Medicine Gastroenterology; Visit Provider Internal Medicine Gastroenterology
DX: K74.60 Unspecified cirrhosis of liver (principal)
CPT/HCPCS: 49083

== ENCOUNTER → 2020-04-05 08:16 | Outpatient (CLI) | payer MEDICARE, SELFPAY ==
[2020-03-01 11:25] VITALS: BMI 23.8
[2020-03-22 11:23] VITALS: BMI 23.8
--- NOTE | 2020-04-05 08:20 | US_ITS ---
PROCEDURE: Ultrasound guided paracentesis. DATE OF EXAMINATION: 04/05/2020.. INDICATION: Female, 59 years old. Ascites. PHYSICIAN: Hernandez Eli M.D. TECHNIQUE: The risks, benefits, and alternatives to the procedure were explained to the patient. The specific risks of bleeding, infection, and damage to bowel were detailed and accepted. Witnessed informed consent was obtained. The abdomen was ultrasonographically surveyed. An appropriate pocket of fluid was identified at the left lower quadrant. The skin were cleaned and prepped in the usual sterile fashion. Using ultrasound guidance, the peritoneal cavity was accessed with a 5-Barbadian paracentesis needle/catheter system. The trocar was removed. A total of 2700 ml of brad-colored fluid were removed from the peritoneal cavity. The catheter was removed and a sterile dressing was applied. The procedure was well tolerated. US/Paracentesis with US IMPRESSION: Ultrasound guided paracentesis. Electronically Signed: Hernandez Eli, at 9:23 EST , Service support ,
[2020-04-05 09:27] VITALS: BP 132/67; BP 145/68; PULSE 60; PULSE 64; RESP 14; TEMP 37; O2SAT 97; O2SAT 99
== END ==
PROVIDERS: Referring Provider Internal Medicine Gastroenterology; Visit Provider Internal Medicine Gastroenterology
DX: K74.60 Unspecified cirrhosis of liver (principal)
CPT/HCPCS: 49083

== ENCOUNTER → 2020-04-12 13:09 | Outpatient (CLI) | payer MEDICARE, SELFPAY ==
[2020-03-01 11:25] VITALS: BMI 23.8
[2020-03-22 11:23] VITALS: BMI 23.8
--- NOTE | 2020-04-12 13:31 | US_ITS ---
PROCEDURE: ULTRASOUND GUIDED PARACENTESIS CLINICAL HISTORY: Female, 59 years old. ASCITES CONSENT: Yes Time-Out Called: Yes. Consent form signed: Yes. PT-PTT Levels Checked: Yes. FINDINGS: FLUID PRE-PROCEDURE There is posterior enhancement. The findings appear anechoic. There is no loculation. A needle was inserted into the ascites in the left lower quadrant and 4500 cc of fluid was aspirated from the abdominal cavity. Only a small amount of fluid was noted within the abdominal cavity following the paracentesis. US/Paracentesis with US IMPRESSION: A paracentesis was performed and 4500 cc of fluid was aspirated from the abdominal cavity. Electronically Signed: Miko Gillian, at 15:25 EST Tel , Service support ,
[2020-04-12 13:40] VITALS: BP 139/75; BP 141/83; PULSE 66; PULSE 71; RESP 18; TEMP 36.8; O2SAT 97
[2020-04-12 14:33] VITALS: BP 132/74; PULSE 79; RESP 16; TEMP 36
[2020-04-12] MEDS: Albumin Human 25% (100 mL) 25 GM/100 ML BAG IV ×2 (14:35→15:56)
[2020-04-12 14:52] VITALS: BP 129/78; PULSE 69; RESP 14; O2SAT 94
[2020-04-12 17:48] VITALS: BP 120/69; PULSE 77; RESP 16
== END ==
LOC: US 13:29 → MEDOUTP 14:23
PROVIDERS: Referring Provider Internal Medicine Gastroenterology; Visit Provider Internal Medicine Gastroenterology
DX: K74.60 Unspecified cirrhosis of liver (principal); R18.8 Other ascites
CPT/HCPCS: 96365; 96366 ×2; 49083; P9047

== ENCOUNTER → 2020-04-16 16:55 | Outpatient (CLI) | payer MEDICARE, SELFPAY ==
[2020-03-22 11:23] VITALS: BMI 23.8
[2020-04-16 17:12] LABS: Absolute Lymphocyte Count 1.47 X10^3/uL (0.83-4.51); Absolute Neutrophil Count 2.9 X10^3/uL (2.0-7.7); Basophil# 0.02 X10^3/uL; Basophil% 0.4 % (0-1); Eosinophil# 0.21 X10^3/uL; Eosinophils% 4.2 % (0-5); Hematocrit 37.7 % (37-47); Hemoglobin 12.3 g/dL (12.0-15.0); Lymphocyte # 1.47 X10^3/ul (4.0); Lymphocyte % 29.6 % (19-41); Mean Corp Hgb Conc 32.6 g/dL (32-36); Mean Corpuscular Hgb 30.3 pg (27.0-32.0); Mean Corpuscular Volume 92.9 fL (81-99); Mean Platelet Vol. 10.1 fl (6.2-12.0); Monocyte# 0.35 X10^3/uL; Monocyte% 7.1 % (0-10); NRBC Flagged by Analyzer 0 % (0-5); Neutrophil % 58.5 % (47-70); Platelet Count 117 K/mm3 (150-450); RBC Distribution Width CV 14.8 % (11.6-14.6); RBC Distribution Width SD 50.9 fl (35.1-43.9); Red Blood Count 4.06 M/mm3 (4.2-5.4)
[2020-04-16 17:37] LABS: Vitamin D,25 Hydroxy 14.7 ng/mL
[2020-04-16 17:44] LABS: ALB/GLOB Ratio 0.9 RATIO (0.9-2.4); AST(SGOT) 28 U/L (15-37); Alanine Aminotransfer ALT/SGPT 22 U/L (13-56); Albumin, Serum 3.1 g/dL (3.2-5.0); Alkaline Phosphatase 119 U/L (45-117); Anion Gap 5 (5-15); BUN 19 mg/dL (7-18); BUN/Creat Ratio 14.5 RATIO (10-20); Calcium,Total 8.1 mg/dL (8.5-10.1); Chloride 113 mmol/L (98-107); Cholesterol 135 mg/dL (200); Creatinine, Serum 1.31 mg/dL (0.55-1.02); EST Glomerular Filtration Rate 44 mL/min (>60); Est Glom Filt Rate - Afr Amer 53 mL/min (>60); Globulin 3.6 g/dL (2.2-4.2); Glucose 109 mg/dL (74-106); High Density Lipoprotein 26 mg/dL; Potassium 3.9 mmol/L (3.5-5.1); Protein, Total 6.7 g/dL (6.4-8.2); Sodium Level 141 mmol/L (136-145); Thyroid Stim Hormone (TSH) 3.71 uIU/mL (0.358-3.74); Triglycerides 127 mg/dL; Very Low Density Lipoprotein 25 mg/dL (5-40)
[2020-04-18 05:07] LABS: HEPATITIS B SURFACE AG Negative (Negative); Hepatitis A AB, Total Positive (Negative); Hepatitis A IgM Antibody Negative (Negative); Hepatitis B Core AB IgM Negative (Negative); Hepatitis B Core Ab Total Negative (Negative); Hepatitis C Ab <0.1 s/co ratio (0.0-0.9)
[2020-04-18 16:00] LABS: Hep B Surface Antibodies Non Reactive (.)
== END ==
PROVIDERS: Visit Provider Family Medicine Geriatric Medicine
DX: E55.9 Vitamin D deficiency, unspecified (principal); E78.5 Hyperlipidemia, unspecified; R53.83 Other fatigue; Z13.89 Encounter for screening for other disorder
CPT/HCPCS: 36415; 80053; 80061; 82306; 84443; 85025; 86704; 86705; 86706; 86708; 86709; 86803; 87340

== ENCOUNTER → 2020-04-19 08:10 | Outpatient (CLI) | payer MEDICARE, SELFPAY ==
[2020-03-01 11:25] VITALS: BMI 23.8
[2020-03-22 11:23] VITALS: BMI 23.8
--- NOTE | 2020-04-19 08:12 | US_ITS ---
PROCEDURE: Ultrasound guided paracentesis. DATE OF EXAMINATION: 04/19/2020. INDICATION: Female, 59 years old. Ascites. PHYSICIAN: Hernandez Eli M.D. TECHNIQUE: The risks, benefits, and alternatives to the procedure were explained to the patient. The specific risks of bleeding, infection, and damage to bowel were detailed and accepted. Witnessed informed consent was obtained. The abdomen was ultrasonographically surveyed. An appropriate pocket of fluid was identified at the left lower quadrant. The skin were cleaned and prepped in the usual sterile fashion. Using ultrasound guidance, the peritoneal cavity was accessed with a 5-Latvian paracentesis needle/catheter system. The trocar was removed. A total of 3250 ml of brad-colored fluid were removed from the peritoneal cavity. The catheter was removed and a sterile dressing was applied. The procedure was well tolerated. US/Paracentesis with US IMPRESSION: Ultrasound guided paracentesis. Electronically Signed: Hernandez Eli, at 9:29 EST , Service support ,
[2020-04-19 08:53] VITALS: BP 136/76; PULSE 70; RESP 14; O2SAT 98
[2020-04-19 09:00] VITALS: BP 135/84; BP 136/78; PULSE 64; PULSE 65; RESP 16; O2SAT 97; O2SAT 98
== END ==
PROVIDERS: Referring Provider Internal Medicine Gastroenterology; Visit Provider Internal Medicine Gastroenterology
DX: K74.60 Unspecified cirrhosis of liver (principal)
CPT/HCPCS: 49083

== ENCOUNTER → 2020-04-26 08:15 | Outpatient (CLI) | payer MEDICARE, SELFPAY ==
[2020-03-01 11:25] VITALS: BMI 23.8
[2020-03-22 11:23] VITALS: BMI 23.8
--- NOTE | 2020-04-26 08:16 | US_ITS ---
PROCEDURE: Ultrasound guided paracentesis. DATE OF EXAMINATION: 04/26/2020. INDICATION: Female, 59 years old. Ascites. PHYSICIAN: Hernandez Eli M.D. TECHNIQUE: The risks, benefits, and alternatives to the procedure were explained to the patient. The specific risks of bleeding, infection, and damage to bowel were detailed and accepted. Witnessed informed consent was obtained. The abdomen was ultrasonographically surveyed. An appropriate pocket of fluid was identified at the left lower quadrant. The skin were cleaned and prepped in the usual sterile fashion. Using ultrasound guidance, the peritoneal cavity was accessed with a 5-Bengali paracentesis needle/catheter system. The trocar was removed. A total of 3600 ml of brad-colored fluid were removed from the peritoneal cavity. The catheter was removed and a sterile dressing was applied. The procedure was well tolerated. US/Paracentesis with US IMPRESSION: Ultrasound guided paracentesis. Electronically Signed: Hernandez Eli, at 11:20 EST , Service support ,
[2020-04-26 08:40] VITALS: BP 122/70; BP 127/85; BP 137/81; PULSE 68; PULSE 79; PULSE 81; RESP 18; TEMP 36.8; O2SAT 97; O2SAT 98
[2020-04-26 09:36] VITALS: BP 144/80; PULSE 84; RESP 16; TEMP 36.4; O2SAT 97; BMI 23.8
[2020-04-26] MEDS: Albumin Human 25% (100 mL) 25 GM/100 ML BAG IV ×2 (09:47→11:09)
[2020-04-26 13:07] VITALS: BP 123/68; PULSE 81; RESP 16; TEMP 36.9; O2SAT 97
== END ==
PROVIDERS: Referring Provider Internal Medicine Gastroenterology; Visit Provider Internal Medicine Gastroenterology
DX: K74.60 Unspecified cirrhosis of liver (principal)
CPT/HCPCS: 96365; 96366 ×2; 49083; P9047

== ENCOUNTER → 2020-04-29 10:10 | Outpatient (CLI) | payer MEDICARE, SELFPAY ==
[2020-04-26 09:36] VITALS: BMI 23.8
[2020-04-29 10:32] LABS: Absolute Lymphocyte Count 1.03 X10^3/uL (0.83-4.51); Absolute Neutrophil Count 4.1 X10^3/uL (2.0-7.7); Basophil# 0.03 X10^3/uL; Basophil% 0.5 % (0-1); Eosinophil# 0.06 X10^3/uL; Eosinophils% 1.1 % (0-5); Hemoglobin 13.5 g/dL (12.0-15.0); Lymphocyte # 1.03 X10^3/ul (4.0); Lymphocyte % 18.9 % (19-41); Mean Corp Hgb Conc 33.8 g/dL (32-36); Mean Corpuscular Hgb 30.3 pg (27.0-32.0); Mean Corpuscular Volume 89.9 fL (81-99); Mean Platelet Vol. 10.8 fl (6.2-12.0); Monocyte# 0.24 X10^3/uL; Monocyte% 4.4 % (0-10); NRBC Flagged by Analyzer 0 % (0-5); Neutrophil # 4.09 X10^3/uL (2.7-7.7); Neutrophil % 74.9 % (47-70); Platelet Count 129 K/mm3 (150-450); RBC Distribution Width CV 14.6 % (11.6-14.6); RBC Distribution Width SD 47.9 fl (35.1-43.9); Red Blood Count 4.45 M/mm3 (4.2-5.4); White Blood Count 5.5 K/mm3 (4.4-11.0)
[2020-04-29 10:50] LABS: ALB/GLOB Ratio 1.1 RATIO (0.9-2.4); AST(SGOT) 34 U/L (15-37); Alanine Aminotransfer ALT/SGPT 22 U/L (13-56); Albumin, Serum 3.7 g/dL (3.2-5.0); Alkaline Phosphatase 117 U/L (45-117); Anion Gap 8 (5-15); BUN 24 mg/dL (7-18); Calcium,Total 8.5 mg/dL (8.5-10.1); Chloride 106 mmol/L (98-107); EST Glomerular Filtration Rate 38 mL/min (>60); Est Glom Filt Rate - Afr Amer 46 mL/min (>60); Globulin 3.5 g/dL (2.2-4.2); Glucose 129 mg/dL (74-106); Protein, Total 7.2 g/dL (6.4-8.2); Sodium Level 138 mmol/L (136-145)
--- NOTE | 2020-04-29 11:46 | RAD_ITS ---
STUDY: X-RAY - ABDOMEN/PELVIS REASON FOR EXAM: Female, 59 years old. LOWER ABD PAIN. ALSO VOMITING TECHNIQUE: AP supine and upright views of the abdomen and pelvis. COMPARISON: None. FINDINGS: Normal visualized lung bases. There is a moderate amount of colonic fecal material. There is no demonstrated free abdominal air. Findings suggestive of fluid within the pelvis. There are calcified phleboliths in the pelvis. Normal visualized osseous structures. RAD/Abd Inc Decub and/or Erect IMPRESSION: Moderate amount of fecal material in the colon. Findings suggestive of fluid in the pelvis. Electronically Signed: Hernandez Eli, at 12:38 EST , Service support ,
== END ==
LOC: POLAB3 10:13 → RAD 11:45
PROVIDERS: PCP Family Medicine Geriatric Medicine; Referring Provider Family Medicine Geriatric Medicine; Visit Provider Family Medicine Geriatric Medicine
DX: N39.0 Urinary tract infection, site not specified (principal); R10.30 Lower abdominal pain, unspecified
CPT/HCPCS: 36415; 74019; 80053; 85025; 87077; 87086; 87088; 87186

== ENCOUNTER 2020-05-01 20:20 | Observation (INO) | payer MEDICARE, SELFPAY ==
[2020-04-26 09:36] VITALS: BMI 23.8
[2020-05-01 20:21] VITALS: BP 167/87; PULSE 69; RESP 18; TEMP 36.1; O2SAT 98; BMI 25.3
--- NOTE | 2020-05-01 20:37 | CT_ITS ---
STUDY: CT ABDOMEN AND PELVIS WITHOUT CONTRAST REASON FOR EXAM: Female, 60 years old. Abdominal pain with nausea and vomiting since 1500. History of multiple paracenteses. RADIATION DOSAGE (If Supplied By Facility): CTDIvol = ( 7.41 ) mGy, DLP = ( 347.85 ) mGycm TECHNIQUE: Transaxial images were obtained from the dome of the diaphragm to the symphysis pubis without oral contrast, and without intravenous contrast. Sagittal and coronal images were reconstructed. Individualized dose optimization techniques were used for this CT. COMPARISON: None. FINDINGS: The visualized lung bases are unremarkable. The visualized portions of the heart are within normal limits. The liver appears cirrhotic but without mass. Normal gallbladder and extrahepatic biliary system. Splenomegaly. Normal pancreas. Normal bilateral adrenal glands. Normal right kidney. Normal left kidney. Normal visualized stomach. Normal small intestine. Normal colon. There is non-visualization of the appendix. Atherosclerotic ectatic aorta without rufus aneurysm. Normal inferior vena cava. Normal retroperitoneum. There is diffuse ascites throughout the abdominal cavity. Normal urinary bladder. The uterus is mildly irregular suggesting fibroids. No adnexal mass. No pelvic lymphadenopathy. No free air within the peritoneal cavity. There is a left inguinal hernia containing ascites. The abdominal wall is otherwise unremarkable. Marked degenerative changes of the lumbar spine with multiple Schmorl''s nodes. CT/Abdomen/Pelvis without Cont IMPRESSION: 1. Diffuse ascites. 2. Cirrhotic appearing liver with mild splenomegaly. 3. Fibroid uterus. 4. Left inguinal hernia containing omental fat. 5. Ectatic atherosclerotic abdominal aorta. 6. Marked degenerative changes of the lumbar spine Electronically Signed: Reggie Molina DO at 21:42 EST Tel [phone], Service support ,
[2020-05-01] MEDS: 0.9% Normal Saline 1,000 ML 1000 ML IV (20:48)
[2020-05-01] MEDS: Ondansetron 4 MG/2 ML Vial IV (20:49)
[2020-05-01] MEDS: Morphine 4 MG/ML Syringe IV (20:49)
--- NOTE | 2020-05-01 20:51 | ED.VISSUMM ---
- ER Visit Summary Date of Service: 05/01/20 Chief Complaint: Abdominal pain History of Present Illness: The patient is a [address] Ny and Dr. Agurire. She has a history of cirrhosis and gets paracentesis every Wednesday. Her last paracentesis was on April 26. She reports that she has had 2 episodes of spontaneous bacterial peritonitis in May and June 2018. Patient reports she has abdominal pain that began 2 days ago. Seem to be better yesterday, but is increased again this afternoon. Is an intermittent pain in the last minutes at a time. She describes it as cramping. Is 9-10 at worst and she is pain-free currently. Is worsened by any food. She denies any fatty food intolerance specifically. Nothing makes better. She reports has been nauseated and vomited 10-12 times today. No blood in her emesis. She had diarrhea 2 days ago after using magnesium citrate. She had a formed bowel movement today. Denies any blood in her stools or black tarry stools. No dysuria or frequency. Patient does complain of subjective fever and chills. She reports that this is similar to when she has had spontaneous bacterial peritonitis in the past. Physical Examination: Vitals: Stable. Afebrile. General: Well-nourished and well-developed. Head: Normocephalic atraumatic. Neck: Supple, no lymphadenopathy. No JVD. Nontender. Cardiovascular: Regular rate and rhythm. No murmurs. Respiratory: No respiratory distress. Clear to auscultation bilaterally. Abdominal: Soft, mild diffuse tenderness palpation that is worse in the right upper quadrant, nondistended, normal bowel sounds. No guarding, rebound, or peritoneal signs. Back: Nontender. Extremities: Nontender, no edema. Skin: Normal color, no rash. Neurologic: Alert and oriented ?3. Cranial nerves II through XII are intact. Normal strength and sensation. Psych: Normal affect. Test Results: CBC shows a hematocrit 36.6, platelets 122, 7 neutrophils 77, lymphocytes 15. Chem-7 shows potassium 3.3, chloride of 108, calcium of 8.4, glucose 134, BUN 22, creatinine 1.4. LFTs show total bili of 1.10. This is the same as it was 2 days ago. However, it has been 0.5?1.0 since August 2018. Direct bili 0.31. AST is 48. Clinical Impression(s) from Imaging Studies Abdomen Ultrasound 05/01/20 20:36 IMPRESSION: 1. Diffuse ascites. 2. Cirrhotic appearing liver with mild splenomegaly. 3. Fibroid uterus. 4. Left inguinal hernia containing omental fat. 5. Ectatic atherosclerotic abdominal aorta. 6. Marked degenerative changes of the lumbar spine Electronically Signed: Reggie Molina at 21:42 EST Tel [phone], Service support , Abdomen/Pelvis CT 05/01/20 20:37 IMPRESSION: 1. Diffuse ascites. 2. Cirrhotic appearing liver with mild splenomegaly. 3. Fibroid uterus. 4. Left inguinal hernia containing omental fat. 5. Ectatic atherosclerotic abdominal aorta. 6. Marked degenerative changes of the lumbar spine Electronically Signed: Reggie MolinaDO at 21:42 EST Tel [phone], Service support , Emergency Department Course and Treatment: Patient had an IV placed. She was given morphine and Zofran IV. She is resting more comfortably. However, she reports that she does not feel well enough to go home. Treatment Plan: Patient will be discussed with the hospitalist and admitted for further evaluation and to rule out SBP. Disposition: Admitted in stable condition. Impression: 1. Abdominal pain, uncertain cause. 2. History of paracentesis April 26, 2020. 3. Ascites. 4. Cirrhosis. This note was generated with [employer] software. It may contain incorrect words, spelling, and punctuation that were not noted in review of the chart prior to signing ED Disposition - Plan for ED Patient: Referrals: Vic Ny Chi, MD [Primary Care Provider] -
[2020-05-01 21:00] LABS: Absolute Neutrophil Count 4.5 X10^3/uL (2.0-7.7); Basophil# 0.03 X10^3/uL; Basophil% 0.5 % (0-1); Eosinophil# 0.06 X10^3/uL; Hematocrit 36.6 % (37-47); Hemoglobin 12.4 g/dL (12.0-15.0); Lymphocyte % 15.4 % (19-41); Mean Corp Hgb Conc 33.9 g/dL (32-36); Mean Corpuscular Hgb 30.3 pg (27.0-32.0); Mean Corpuscular Volume 89.5 fL (81-99); Mean Platelet Vol. 10.8 fl (6.2-12.0); Monocyte# 0.34 X10^3/uL; Monocyte% 5.8 % (0-10); NRBC Flagged by Analyzer 0 % (0-5); Platelet Count 122 K/mm3 (150-450); RBC Distribution Width CV 14.5 % (11.6-14.6); RBC Distribution Width SD 47.3 fl (35.1-43.9); Red Blood Count 4.09 M/mm3 (4.2-5.4); White Blood Count 5.9 K/mm3 (4.4-11.0)
[2020-05-01 21:09] LABS: ALB/GLOB Ratio 1.1 RATIO (0.9-2.4); AST(SGOT) 48 U/L (15-37); Alanine Aminotransfer ALT/SGPT 27 U/L (13-56); Albumin, Serum 3.6 g/dL (3.2-5.0); Alkaline Phosphatase 103 U/L (45-117); Anion Gap 10 (5-15); BUN 22 mg/dL (7-18); BUN/Creat Ratio 15.7 RATIO (10-20); Bilirubin, Direct 0.31 mg/dL (0.00-0.30); Calcium,Total 8.4 mg/dL (8.5-10.1); Chloride 108 mmol/L (98-107); EST Glomerular Filtration Rate 41 mL/min (>60); Est Glom Filt Rate - Afr Amer 50 mL/min (>60); Estimated Creatinine Clearance 34.22 ml/min; Globulin 3.3 g/dL (2.2-4.2); Glucose 134 mg/dL (74-106); Potassium 3.3 mmol/L (3.5-5.1); Protein, Total 6.9 g/dL (6.4-8.2); Sodium Level 140 mmol/L (136-145)
[2020-05-01 21:51] VITALS: BP 166/71; PULSE 76; RESP 15; O2SAT 99
[2020-05-01 22:03] VITALS: BP 166/71; PULSE 76; RESP 15; TEMP 36.1; O2SAT 99
--- NOTE | 2020-05-01 22:17 | PCM.HP.STD ---
Problem List (1) Abdominal pain Status: Acute (2) Nausea & vomiting Status: Acute (3) History of alcohol abuse Status: Chronic (4) Inguinal hernia of left side without obstruction or gangrene Status: Chronic (5) SVT (supraventricular tachycardia) Status: Chronic (6) AV (arteriovenous fistula) Status: Chronic (7) H/O dilation and curettage Status: Chronic Comment: 18 yo miscarriage (8) Kidney disease, chronic, stage IV (GFR 15-29 ml/min) Status: Chronic (9) Alcoholic cirrhosis of liver with ascites Status: Chronic (10) Nutritional anemia Status: Chronic (11) Hypothyroidism Status: Chronic Qualifiers: Hypothyroidism type: unspecified Qualified Code(s): E03.9 - Hypothyroidism, unspecified (12) Anemia Status: Chronic (13) Renal failure Status: Chronic Qualifiers: Renal failure chronicity: chronic Chronic kidney disease stage: stage 4 (severe) Qualified Code(s): N18.4 - Chronic kidney disease, stage 4 (severe) (14) Spontaneous bacterial peritonitis Status: Chronic (15) Tobacco abuse Status: Chronic (16) Stage 1 mild COPD by GOLD classification Status: Chronic (17) Lung mass Status: Chronic History of Present Illness Date of Admission: 05/01/20 Chief Complaint: abdominal pain The patient is a 60 year old F with a significant history of hypothyroidism; CKD stage III; alcoholic cirrhosis of liver with ascites who presents to the emergency department with abdominal pain. Her abdominal pain is located at her upper mid abdomen and it radiates to her entire abdomen. Her pain improves when she relaxes. She denies any ameliorating factors to the pain. Associated with her symptom is shortness of breath and anxiety. Further she has nausea and vomiting. She has had multiple bilious vomitus. Her symptoms started 2 days ago. She went to her PCP and she was given mag citrate as x-ray showed that she was constipated. Her bowels was cleansed with mild citrate and she felt okay. However on the day of presentation her pain abdominal pain re-occurred. Patient reports chills and rigors. She denies fever. Her symptom is reminiscent of her previous spontaneous bacterial peritonitis. Of note she has had 2 episodes of spontaneous bacterial peritonitis. Patient gets paracentesis every Wednesday. Her last paracentesis was the Wednesday before presentation. Patient denies any change in taste or smell sensation. She denies any contacts with somebody that she knows has COVID-19 virus. Past Medical History Past Medical History (Chronic Problems): Chronic Problems (Last Reviewed 05/01/20 @ 22:[address] Torsten Vines MD) History of alcohol abuse (Chronic) Inguinal hernia of left side without obstruction or gangrene (Chronic) SVT (supraventricular tachycardia) (Chronic) AV (arteriovenous fistula) (Chronic) H/O dilation and curettage (Chronic) 18 yo miscarriage Kidney disease, chronic, stage IV (GFR 15-29 ml/min) (Chronic) Alcoholic cirrhosis of liver with ascites (Chronic) Nutritional anemia (Chronic) Hypothyroidism (Chronic) Anemia (Chronic) Renal failure (Chronic) Spontaneous bacterial peritonitis (Chronic) Tobacco abuse (Chronic) Stage 1 mild COPD by GOLD classification (Chronic) Lung mass (Chronic) Medical History: Medical History (Last Reviewed 05/02/20 @ 02:[address] Torsten Vines MD) History of alcohol abuse (Chronic) F10.11 Inguinal hernia of left side without obstruction or gangrene (Chronic) K40.90 SVT (supraventricular tachycardia) (Chronic) I47.1 Kidney disease, chronic, stage IV (GFR 15-29 ml/min) (Chronic) N18.4 Alcoholic cirrhosis of liver with ascites (Chronic) K70.31 Nutritional anemia (Chronic) D53.9 Hypothyroidism (Chronic) E03.9 Anemia (Chronic) D64.9 Renal failure (Chronic) N19 Spontaneous bacterial peritonitis (Chronic) K65.2 Tobacco abuse (Chronic) Z72.0 Stage 1 mild COPD by GOLD classification (Chronic) J44.9 Lung mass (Chronic) R91.8 Allergies No Known Allergies Allergy (Verified 05/01/20 20:21) Home Medications: Ambulatory Orders Medication Instructions Recorded pantoprazole 40 mg tablet,delayed 40 mg PO DAILY 03/22/19 release rifaximin 550 mg tablet 550 mg PO BID 03/22/19 levothyroxine 50 mcg capsule 50 mcg PO DAILY 04/03/19 calcitriol 0.25 mcg capsule 1 ea PO MOWEFR 10/17/19 albuterol sulfate 90 mcg/actuation 2 puff INHALATION Q4H PRN #1 device 11/23/19 aerosol inhaler metoprolol tartrate 25 mg tablet 25 mg PO BID #180 tab 04/10/20 hydroxyzine HCl 10 mg tablet 10 mg PO BID PRN tab 04/18/20 Citalopram Hydrobromide 10 mg PO DAILY 05/01/20 [Citalopram HBr] Surgical History: Surgical History (Last Reviewed 05/02/20 @ 02:[address] Torsten Vines MD) AV (arteriovenous fistula) (Chronic) I77.0 H/O dilation and curettage (Chronic) Z98.890 18 yo miscarriage History of colonoscopy Onset Date: ~08/2018 Z98.890 Surgical History: - Psychiatric History: No pertinent psych hx ASSISTANT PROFESSOR History: No pertinent ASSISTANT PROFESSOR history Smoking Status: Current every day smoker Tobacco Use: Cigarettes Alcohol: Sober - *Family History Maternal Family History: Family History (Last Reviewed 05/02/20 @ 02:[address] Torsten Vines MD) Father Myocardial infarction Mother Heart disease Kidney disease Liver disease Brother Brain cancer Paternal Family History: Family History (Last Reviewed 05/02/20 @ 02:[address] Torsten Vines MD) Father Myocardial infarction Mother Heart disease Kidney disease Liver disease Brother Brain cancer Review of Systems Constitutional: Reports: Chills. Denies: Fever, Weight Change HEENT: Denies: Head Aches, Sinus Congestion, Sinus Drainage Cardiovascular: Denies: Chest Pain, Palpitations Respiratory: Denies: Cough, Shortness of breath at rest, Sputum production Gastrointestinal: Reports: Abdominal Pain, Nausea, Vomiting Genitourinary: Denies: Dysuria Musculoskeletal: Denies: Joint Pain, Joint Tenderness Skin: Denies: Rash, Wounds Neurological: Denies: Numbness, Tingling, Focal weakness Psychiatric: Denies: Anxiety, Depression, Homicidal Ideations, Suicidal Ideations Hematologic/ Lymphatic: Denies: Easy Bruising, Easy Bleeding VTE Information - Inpt Only VTE Present on Admission: No VTE Mechan Device Prophylaxis: SCD's VTE Pharm Prophylaxis ordered?: No Patient Problems: Active and Suspected Problems (Last Reviewed 05/01/20 @ 22:[address] Torsten Vines MD) Abdominal pain (Acute) Nausea & vomiting (Acute) - Physical Exam Vitals/I&O's: Vital Signs Temp Pulse Resp BP Pulse Ox 97.0 F L 76 15 166/71 H 99 05/01/20 20:21 05/01/20 21:51 05/01/20 21:51 05/01/20 21:51 05/01/20 21:51 Oxygen Delivery Method Room Air Weight: 62.8 kg Body Mass Index (BMI) 25.3 Intake and Output for Last 24 Hours 04/29/20 04/30/20 05/01/20 23:59 23:59 23:59 Intake Total 1000 / 1000 Balance 1000 / 1000 General: Alert, Oriented x3, Cooperative HEENT: Atraumatic, PERRLA, EOMI, Normocephalic Neck: Supple, No JVD, Negative Carotid Bruits Lungs: Clear to auscultation, Normal air movement, No rhonchi, No wheeze, No rales Cardiovascular: Regular rate, Normal S1, Normal S2, No murmurs Abdomen: Soft, Non Tender, Hyperactive Bowel Sounds, Obese Extremities: No edema, Capillary Refill Less than 3 Seconds Skin: No rashes, No breakdown Musculoskeletal: No Tenderness to Palpation of Joints or Extremities Neurological: Cranial nerves II-XII grossly intact Psych/Mental Status: Normal Affect, Appropriate Laboratory Results 05/01/20 20:44: WBC 5.9, RBC 4.09 L, Hgb 12.4, Hct 36.6 L, MCV 89.5, MCH 30.3, MCHC 33.9, RDW Std Deviation 47.3 H, RDW Coeff of Constance 14.5, Plt Count 122 L, MPV 10.8, Immature Gran % (Auto) 0.300, Neut % (Auto) 77.0 H, Lymph % (Auto) 15.4 L, [place] % (Auto) 5.8, Eos % (Auto) 1.0, Baso % (Auto) 0.5, Absolute Neuts (auto) 4.5, Absolute Lymphs (auto) 0.90, Nucleated RBC % 0 05/01/20 20:44: Sodium 140, Potassium 3.3 L, Chloride 108 H, Carbon Dioxide 22.0, Anion Gap 10, BUN 22 H, Creatinine 1.40 H, Estim Creat Clear Calc 34.22, Est GFR (MDRD) Af Amer 50 L, Est GFR (MDRD) Non-Af 41 L, BUN/Creatinine Ratio 15.7, Glucose 134 H, Calcium 8.4 L, Total Bilirubin 1.10 H, Direct Bilirubin 0.31 H, AST 48 H, ALT 27, Alkaline Phosphatase 103, Total Protein 6.9, Albumin 3.6, Globulin 3.3, Albumin/Globulin Ratio 1.1 Assessment/Plan All Active Problems (Last Reviewed 05/01/20 @ 22:[address] Torsten Vines MD) Abdominal pain (Acute) Nausea & vomiting (Acute) The patient is a 60 year old F with a significant history of hypothyroidism; CKD stage III; alcoholic cirrhosis of liver with ascites and previous SBP who presents to the emergency department with abdominal pain; nausea and vomiting. Abdominal pain; nausea and vomiting On 04/29/2020: Moderate amount of fecal material in the colon. Findings suggestive of fluid in the pelvis. Radiologist impression of abdomen/pelvis CT/ultrasound on presentation: Diffuse ascites. Cirrhotic appearing liver with mild splenomegaly. Fibroid uterus. Left inguinal hernia containing omental fat. Ectatic atherosclerotic abdominal aorta. Mild degeneration of the lumbar spine. Abdomen pelvis CT on presentation: Paracentesis in a.m.. Gram stain and culture of ascitic fluid ordered. Morphine as needed for pain. Zofran as needed for nausea and vomiting. Shared decision with patient to start patient on clear liquid diet. Trend CBC Hypokalemia Replaced Trend BMP. Check magnesium level Tobacco abuse Nicotine patch ordered Counseled CKD stage III Stable DVT prophylaxis SCD. OBSV E&M: [id number] Initial observation care L2
[2020-05-01 22:48] VITALS: BMI 23.9
[2020-05-01 23:10] VITALS: BP 149/72; PULSE 69; RESP 18; TEMP 36.7; O2SAT 95
[2020-05-01 23:39] VITALS: PULSE 70
[2020-05-01] MEDS: Metoprolol Tartrate 25 MG Tablet PO (23:39)
[2020-05-01] MEDS: rifAXIMin 550 MG Tablet PO (23:40)
[2020-05-01 23:52] LABS: Magnesium 2.1 mg/dL (1.6-2.6)
[2020-05-02] VITALS (8 sets, daily range): BP systolic 109–143; BP diastolic 53–66; PULSE 60–69; RESP 16–18; TEMP 36.7–36.9; O2SAT 96–98
[2020-05-02] MEDS: hydrOXYzine 10 MG Tablet PO
[2020-05-02] MEDS: Morphine 2 MG/ML Syringe IV (00:04)
[2020-05-02] MEDS: Ondansetron 4 MG/2 ML Vial IV (00:04)
[2020-05-02] MEDS: Levothyroxine 50 MCG Tablet PO (05:14)
--- NOTE | 2020-05-02 06:20 | PCS.PANDOC ---
PANDEMIC DOCUMENTATION INITIATED: Date: 05/02/2020 Time: 1207
[2020-05-02 07:13] LABS: Absolute Lymphocyte Count 1.71 X10^3/uL (0.83-4.51); Absolute Neutrophil Count 3.3 X10^3/uL (2.0-7.7); Basophil# 0.03 X10^3/uL; Basophil% 0.5 % (0-1); Eosinophil# 0.17 X10^3/uL; Hematocrit 35.8 % (37-47); Hemoglobin 11.8 g/dL (12.0-15.0); Lymphocyte # 1.71 X10^3/ul (4.0); Lymphocyte % 29.8 % (19-41); Mean Corpuscular Hgb 29.9 pg (27.0-32.0); Mean Corpuscular Volume 90.9 fL (81-99); Monocyte# 0.52 X10^3/uL; Monocyte% 9.1 % (0-10); NRBC Flagged by Analyzer 0 % (0-5); Neutrophil # 3.29 X10^3/uL (2.7-7.7); Neutrophil % 57.4 % (47-70); Platelet Count 113 K/mm3 (150-450); RBC Distribution Width CV 14.7 % (11.6-14.6); RBC Distribution Width SD 49.3 fl (35.1-43.9); Red Blood Count 3.94 M/mm3 (4.2-5.4); White Blood Count 5.7 K/mm3 (4.4-11.0)
[2020-05-02 07:37] LABS: Anion Gap 7 (5-15); BUN 20 mg/dL (7-18); Calcium,Total 7.8 mg/dL (8.5-10.1); Chloride 112 mmol/L (98-107); Creatinine, Serum 1.25 mg/dL (0.55-1.02); EST Glomerular Filtration Rate 47 mL/min (>60); Est Glom Filt Rate - Afr Amer 56 mL/min (>60); Estimated Creatinine Clearance 38.33 ml/min; Glucose 74 mg/dL (74-106); Potassium 4.2 mmol/L (3.5-5.1); Sodium Level 142 mmol/L (136-145)
[2020-05-02] MEDS: Metoprolol Tartrate 25 MG Tablet PO ×2 (10:44→21:01)
[2020-05-02] MEDS: Pantoprazole Sodium 40 MG Tablet PO (10:44)
[2020-05-02] MEDS: Citalopram 10 MG Tablet PO (10:44)
[2020-05-02] MEDS: rifAXIMin 550 MG Tablet PO ×2 (10:44→21:01)
[2020-05-02] MEDS: Ensure Clear 120 ML Liquid PO ×4 (10:49→21:01)
--- NOTE | 2020-05-02 13:16 | PN_ITS ---
Patient Problems: Active and Suspected Problems (Last Reviewed 05/02/20 @ 02:[address] Torsten Vines MD) Abdominal pain (Acute) Nausea & vomiting (Acute) Subjective: Patient seen and examined. She was admitted with a complaint of abdominal pain. She does have a history of cirrhosis with ascites requiring regular paracentesis. She states abdominal pain is much better today. She denies any fever or chills, or any burning with urination. Review of systems otherwise negative. She did have a urine culture in her PCP's office, which was faxed to us today and showed that the urine culture grew Klebsiella pneumoniae and Morganella Morgagni as well as Klebsiella oxytoca. Patient started on IV ceftriaxone. He is to have paracentesis today. Vitals/I&O's: Vital Signs Temp Pulse Resp BP Pulse Ox 98.5 F 60 18 111/53 L 96 05/02/20 10:46 05/02/20 10:46 05/02/20 10:46 05/02/20 10:46 05/02/20 10:46 Oxygen Delivery Method Room Air Weight: 130 lb 11.746 oz Body Mass Index (BMI) 23.9 Intake and Output for Last 24 Hours 04/30/20 05/01/20 05/02/20 23:59 23:59 23:59 Intake Total 1000 / 1000 Balance 1000 / 1000 General: Alert, Oriented x3, Cooperative, No apparent distress HEENT: Atraumatic, PERRLA, EOMI, Normocephalic Oral: Dry Mucosa Neck: Supple, No JVD, Negative Carotid Bruits Lungs: Clear to auscultation, Normal air movement, No rhonchi Cardiovascular: Regular rate, Regular Rhythm, Normal S1, Normal S2, No murmurs Abdomen: Bowel Sounds Present, Soft, Non Tender, - - positive fluid thrill due to ascites Extremities: No clubbing, No cyanosis, No edema, Capillary Refill Less than 3 Seconds Skin: No rashes, No breakdown Musculoskeletal: No Tenderness to Palpation of Joints or Extremities Lymphatic: No Cervical, Supraclavicular, or Inguinal Adenopathy Neurological: Cranial nerves II-XII grossly intact, Neuro grossly intact, Motor Exam 5/5 strength throughout Psych/Mental Status: Normal Affect, Appropriate, Alert and oriented to time, place, person, mood and affect Laboratory Results 05/01/20 20:44: WBC 5.9, RBC 4.09 L, Hgb 12.4, Hct 36.6 L, MCV 89.5, MCH 30.3, M CHC 33.9, RDW Std Deviation 47.3 H, RDW Coeff of Constance 14.5, Plt Count 122 L, MPV 10.8, Immature Gran % (Auto) 0.300, Neut % (Auto) 77.0 H, Lymph % (Auto) 15.4 L, [place] % (Auto) 5.8, Eos % (Auto) 1.0, Baso % (Auto) 0.5, Absolute Neuts (auto) 4.5, Absolute Lymphs (auto) 0.90, Nucleated RBC % 0 05/01/20 20:44: Sodium 140, Potassium 3.3 L, Chloride 108 H, Carbon Dioxide 22.0, Anion Gap 10, BUN 22 H, Creatinine 1.40 H, Estim Creat Clear Calc 34.22, Est GFR (MDRD) Af Amer 50 L, Est GFR (MDRD) Non-Af 41 L, BUN/Creatinine Ratio 1 5.7, Glucose 134 H, Calcium 8.4 L, Total Bilirubin 1.10 H, Direct Bilirubin 0.31 H, AST 48 H, ALT 27, Alkaline Phosphatase 103, Total Protein 6.9, Albumin 3.6, Globulin 3.3, Albumin/Globulin Ratio 1.1 05/01/20 20:44: Magnesium 2.1 05/02/20 06:21: WBC 5.7, RBC 3.94 L, Hgb 11.8 L, Hct 35.8 L, MCV 90.9, MCH 29.9, MCHC 33.0, RDW Std Deviation 49.3 H, RDW Coeff of Constance 14.7 H, Plt Count 113 L, MPV 11.0, Immature Gran % (Auto) 0.200, Neut % (Auto) 57.4, Lymph % (Auto) 29.8, [place] % (Auto) 9.1, Eos % (Auto) 3.0, Baso % (Auto) 0.5, Absolute Neuts (auto) 3.3, Absolute Lymphs (auto) 1.71, Nucleated RBC % 0 05/02/20 06:21: Sodium 142, Potassium 4.2, Chloride 112 H, Carbon Dioxide 23.0, Anion Gap 7, BUN 20 H, Creatinine 1.25 H, Estim Creat Clear Calc 38.33, Est GFR (MDRD) Af Amer 56 L, Est GFR (MDRD) Non-Af 47 L, BUN/Creatinine Ratio 16.0, Glucose 74, Calcium 7.8 L Diagnostic Data Abdomen Ultrasound 05/01/20 20:36 IMPRESSION: 1. Diffuse ascites. 2. Cirrhotic appearing liver with mild splenomegaly. 3. Fibroid uterus. 4. Left inguinal hernia containing omental fat. 5. Ectatic atherosclerotic abdominal aorta. 6. Marked degenerative changes of the lumbar spine Electronically Signed: Reggie Molina DO at 21:42 EST Tel [phone], Service support , Abdomen/Pelvis CT 05/01/20 20:37 IMPRESSION: 1. Diffuse ascites. 2. Cirrhotic appearing liver with mild splenomegaly. 3. Fibroid uterus. 4. Left inguinal hernia containing omental fat. 5. Ectatic atherosclerotic abdominal aorta. 6. Marked degenerative changes of the lumbar spine Electronically Signed: Reggie Molina DO at 21:42 EST Tel [phone], Service support , Current Medications Albuterol Sulfate (Albuterol 2.5 Mg/3 Ml Vial.Neb.) 2.5 mg INHALATION Q2H PRN PRN PRN Reason: sob/wheezing Calcitriol (Calcitriol 0.25 Mcg Capsule) 0.25 mcg PO MoWeFr@1000 [facility] Citalopram Hydrobromide (Citalopram 10 Mg Tablet) 10 mg PO DAILY [facility] Last Admin: 05/02/20 10:44 Dose: 10 mg Documented by: Hydroxyzine HCl (Hydroxyzine 10 Mg Tablet) 10 mg PO BID PRN PRN PRN Reason: ITCHING Last Admin: 05/02/20 00:00 Dose: 10 mg Documented by: Ceftriaxone Sodium (Rocephin) 1 gm in 50 mls @ 100 mls/hr IV Q24 [facility] Levothyroxine Sodium (Levothyroxine 50 Mcg Tablet) 50 mcg PO DAILY@0600 [facility] Last Admin: 05/02/20 05:14 Dose: 50 mcg Documented by: Melatonin (Melatonin 3 Mg Tablet) 3 mg PO QHS PRN PRN PRN Reason: INSOMNIA Metoprolol Tartrate (Metoprolol Tartrate 25 Mg Tablet) 25 mg PO BID [facility] Last Admin: 05/02/20 10:44 Dose: 25 mg Documented by: Morphine Sulfate (Morphine 2 Mg/Ml Syringe) 2 mg IV Q3H PRN PRN PRN Reason: Pain Score 6-10 Last Admin: 05/02/20 00:04 Dose: 2 mg Documented by: Nicotine (Nicotine 14 Mg Patch) 14 mg TD DAILY [facility] Last Admin: 05/02/20 10:44 Dose: 14 mg Documented by: Nutritional Formula (Lactose Free) (Ensure Clear 120 Ml Liquid) 120 ml PO 4X/DAY [facility] Last Admin: 05/02/20 10:49 Dose: 120 ml Documented by: Ondansetron HCl (Ondansetron 4 Mg/2 Ml Vial) 4 mg IV Q8H PRN PRN PRN Reason: NAUSEA/VOMITING Last Admin: 05/02/20 00:04 Dose: 4 mg Documented by: Pantoprazole Sodium (Pantoprazole Sodium 40 Mg Tablet) 40 mg PO DAILY [facility] Last Admin: 05/02/20 10:44 Dose: 40 mg Documented by: Rifaximin (Rifaximin 550 Mg Tablet) 550 mg PO BID [facility] Last Admin: 05/02/20 10:44 Dose: 550 mg Documented by: Sodium Chloride (0.9% Saline Lock 10 Ml Syringe) 10 - 40 ml IV UD PRN PRN Reason: SALINE FLUSH STROKE Vital Signs/Narrative: Vital Signs Temp Pulse Resp BP Pulse Ox 05/02/20 10:46 98.5 F 60 18 111/53 L 96 05/02/20 10:44 64 Medical Necessity - Tobacco Use Smoking Status: Current every day smoker Tobacco Use: Cigarettes Assessment/Plan All Active Problems (Last Reviewed 05/02/20 @ 02:[address] Torsten Vines MD) Abdominal pain (Acute) Nausea & vomiting (Acute) # UTI * Was likely the cause of her abdominal pain. * CT of the abdomen and pelvis showed diffuse ascites with cirrhotic appearing liver with mild splenomegaly and fibroid uterus. * Urine culture done on outpatient basis at her PCPs office grew Klebsiella pneumonia and Klebsiella oxytoca as well as Morganella morganii. Started on IV ceftriaxone. #Liver cirrhosis with ascites * for paracentesis today. * check for SBP with paracentesis * # Hypokalemia: resolved # Nicotine dependence: no nicotine patch # CKD 3; stable. Cr is 1.25 #Thromobocytopenia: plateles are 113 today. likely due to chronic liver disease. Will monitor #Hypothyroidism: on synthroid #GI prohylaxis: on PPI DVT prophylaxis; SCDs OBSV E&M: 22730 Subsequent observation care L2
--- NOTE | 2020-05-02 13:20 | FLU_PTH ---
PATIENT: KEYLA MATTHEWS LOC: [facility] U#:[id number] AGE/SX: 60/F ROOM: MS308 RE05/01/[address]: Dr. Karon Hartley MD : 1960 BED: 1 DIS: 05/03/2020 SPEC #: [id number] RECD: 05/02/20 13:37 STATUS: YAZAN REQ #: [id number] KENNA: 05/02/20 13:[address]: Karon Hartley DEPT: CYTOLOGY RECD BY: Joyce Pool ENTERED: 05/03/20 08:03 SP TYPE: Fluid OTHR DR: MD Dr. Vic Otto Chi, MD Tissues: PARACENTESIS FLUID Procedures: Special Stain Group II Surgery Specimen Level IV Cytospin Fluid HEADER OPERATION: Paracentesis PRE-OP DIAGNOSIS: Ascites TISSUE SUBMITTED: Paracentesis fluid for cytology DIAGNOSIS CYTOLOGY Paracentesis fluid for cytology (cytospin and cell block): Negative for malignant cells. See comment. SELENE:amauri 05/06/20 COMMENT Clinical correlation and appropriate follow up are necessary. CYTOLOGY STUDY Slides are reviewed. CYTOLOGY GROSS Received is 80 ml of yellow cloudy fluid labeled with the patient's name and and designated per the requisition as paracentesis. Submitted for cytology preparation including cell block. / amauri 05/03/20 TC:5 CPT: 26754, 90628
[2020-05-02] MEDS: 0.9% Saline Lock 10 ML Syringe IV (14:07)
[2020-05-02] MEDS: Ceftriaxone 1 GM/50 ML BAG IV (14:07)
[2020-05-02 14:08] LABS: AST(SGOT) 39 U/L (15-37); Alanine Aminotransfer ALT/SGPT 25 U/L (13-56); Albumin, Serum 3.1 g/dL (3.2-5.0); Alkaline Phosphatase 91 U/L (45-117); Bilirubin, Direct 0.23 mg/dL (0.00-0.30); Protein, Total 6.1 g/dL (6.4-8.2)
[2020-05-02 14:10] LABS: Body Fluid Mononuclear WBC # 0.092 10^3/uL; Body Fluid Mononuclear WBC % 90.2 %; Body Fluid Polynuclear WBC % 9.8 %; Body Fluid Total Cells Counted 0.136 10^3/ul; White Blood Count/Body Fluid 0.102 10^3/uL
[2020-05-02 14:46] LABS: Appearance/Body Fluid CLEAR; Auto B Fluid Analyzer BKGD Ct COUNTS W/IN LIMITS (W/IN LIMITS); Color/Body Fluid LT YEL; Source- Body Fluid OTHER
[2020-05-02 14:47] LABS: Red Cell Count/Body Fluid 11 /mm3
[2020-05-02 14:50] LABS: Body Fluid QC Type(s) BF1Q; Lymphocytes 70 %; Neutrophil (Segs) 10 %; Other Cell Type/BF 20 %
--- NOTE | 2020-05-02 22:49 | US_ITS ---
PROCEDURE: Ultrasound guided paracentesis. DATE OF EXAMINATION: . INDICATION: Female, 60 years old. Ascites. 05/02/2020 PHYSICIAN: Hernandez Eli M.D. TECHNIQUE: The risks, benefits, and alternatives to the procedure were explained to the patient. The specific risks of bleeding, infection, and damage to bowel were detailed and accepted. Witnessed informed consent was obtained. The abdomen was ultrasonographically surveyed. An appropriate pocket of fluid was identified at the right lower quadrant. The skin were cleaned and prepped in the usual sterile fashion. Using ultrasound guidance, the peritoneal cavity was accessed with a 5-Vietnamese paracentesis needle/catheter system. The trocar was removed. A total of 100 ml of brad-colored fluid were removed from the peritoneal cavity. The catheter was removed and a sterile dressing was applied. The procedure was well tolerated. US/Paracentesis with US IMPRESSION: Ultrasound guided paracentesis. Electronically Signed: Hernandez Eli, at 14:35 EST , Service support ,
[2020-05-03 02:25] VITALS: BP 106/53; PULSE 70; RESP 18; TEMP 37; O2SAT 98
[2020-05-03] MEDS: Levothyroxine 50 MCG Tablet PO (06:14)
[2020-05-03 07:23] LABS: Absolute Lymphocyte Count 1.31 X10^3/uL (0.83-4.51); Basophil# 0.02 X10^3/uL; Basophil% 0.5 % (0-1); Eosinophil# 0.21 X10^3/uL; Eosinophils% 5.4 % (0-5); Hematocrit 35.2 % (37-47); Hemoglobin 11.7 g/dL (12.0-15.0); Lymphocyte # 1.31 X10^3/ul (4.0); Lymphocyte % 33.4 % (19-41); Mean Corp Hgb Conc 33.2 g/dL (32-36); Mean Corpuscular Hgb 30.5 pg (27.0-32.0); Mean Corpuscular Volume 91.9 fL (81-99); Mean Platelet Vol. 10.8 fl (6.2-12.0); Monocyte# 0.33 X10^3/uL; Monocyte% 8.4 % (0-10); NRBC Flagged by Analyzer 0 % (0-5); Neutrophil # 2.04 X10^3/uL (2.7-7.7); POSITIVE COUNT YES; Platelet Count 99 K/mm3 (150-450); RBC Distribution Width CV 14.8 % (11.6-14.6); RBC Distribution Width SD 49.6 fl (35.1-43.9); Red Blood Count 3.83 M/mm3 (4.2-5.4); White Blood Count 3.9 K/mm3 (4.4-11.0)
[2020-05-03 07:42] VITALS: BP 157/80; PULSE 84; RESP 18; TEMP 37.5; O2SAT 100
[2020-05-03] MEDS: Ondansetron 4 MG/2 ML Vial IV (07:50)
[2020-05-03] MEDS: 0.9% Saline Lock 10 ML Syringe IV ×3 (07:51→10:01)
[2020-05-03] MEDS: Pantoprazole Sodium 40 MG Tablet PO (07:51)
[2020-05-03 07:54] LABS: Anion Gap 4 (5-15); BUN 18 mg/dL (7-18); BUN/Creat Ratio 15.9 RATIO (10-20); Calcium,Total 7.7 mg/dL (8.5-10.1); Chloride 113 mmol/L (98-107); Creatinine, Serum 1.13 mg/dL (0.55-1.02); EST Glomerular Filtration Rate 52 mL/min (>60); Est Glom Filt Rate - Afr Amer 63 mL/min (>60); Glucose 84 mg/dL (74-106); Potassium 3.7 mmol/L (3.5-5.1); Sodium Level 140 mmol/L (136-145)
[2020-05-03] MEDS: Ceftriaxone 1 GM/50 ML BAG IV (09:16)
[2020-05-03] MEDS: Morphine 2 MG/ML Syringe IV (09:17)
--- NOTE | 2020-05-03 09:29 | NURSING ---
PT C/O NAUSEA THIS AM - [facility]ECT[facility] - CORTEXT DR MORALES FOR SAME
[2020-05-03] MEDS: proMETHazine 25 MG/ML Syringe 12.5 MG IV (10:01)
--- NOTE | 2020-05-03 10:30 | CASEMGMT ---
ANJALI CM in to complete MENDEZ form with patient. RN LAQUITA explained MENDEZ form to patient, patient voiced understanding. Patient signed MENDEZ form and filed in chart. Patient provided with copy of signed MENDEZ form. Patient had no further questions or concerns at this time.
[2020-05-03 10:43] VITALS: BP 157/80; PULSE 84
[2020-05-03 12:42] LABS: Pathologist Comment/Body Fluid Reviewed
[2020-05-03 14:00] VITALS: BP 146/89; PULSE 74; RESP 18; TEMP 36.8; O2SAT 100
--- NOTE | 2020-05-03 15:20 | DCINST_ITS ---
- Discharge Diagnoses Current Active Problems: Current Active and Chronic Problems (Last Reviewed 05/02/20 @ 02:[address] Torsten Vines MD) Abdominal pain (Acute) Nausea & vomiting (Acute) History of alcohol abuse (Chronic) Inguinal hernia of left side without obstruction or gangrene (Chronic) SVT (supraventricular tachycardia) (Chronic) AV (arteriovenous fistula) (Chronic) H/O dilation and curettage (Chronic) 18 yo miscarriage Kidney disease, chronic, stage IV (GFR 15-29 ml/min) (Chronic) Alcoholic cirrhosis of liver with ascites (Chronic) Nutritional anemia (Chronic) Hypothyroidism (Chronic) Anemia (Chronic) Renal failure (Chronic) Spontaneous bacterial peritonitis (Chronic) Tobacco abuse (Chronic) Stage 1 mild COPD by GOLD classification (Chronic) Lung mass (Chronic) You will use the following diet at home:: Cardiac Your food should be the consistency of: Regular Your liquids should be the consistency of: Regular/Thin Discharge Activity: Return to Normal Activity Weight Bearing Status: Weight bearing as tolerated Call your doctor if you observe: Fever of 101 or Higher, Shortness of breath, Fainting spells, Swelling in the ankles Instructions: Understanding Urinary Tract Infections (UTIs) Allergies/Adverse Reactions: Allergies No Known Allergies Allergy (Verified 05/01/20 20:21) Medications to take at Discharge pantoprazole 40 mg tablet,delayed release 40 mg PO DAILY 03/22/19 rifaximin 550 mg tablet 550 mg PO BID 03/22/19 levothyroxine 50 mcg capsule 50 mcg PO DAILY 04/03/19 calcitriol 0.25 mcg capsule 1 ea PO MOWEFR 10/17/19 albuterol sulfate 90 mcg/actuation aerosol inhaler 2 puff INHALATION Q4H PRN #1 device 11/23/19 metoprolol tartrate 25 mg tablet 25 mg PO BID #180 tab 04/10/20 hydroxyzine HCl 10 mg tablet 10 mg PO BID PRN tab 04/18/20 Citalopram Hydrobromide [Citalopram HBr] 10 mg PO DAILY 05/01/20 Cefdinir [Omnicef [equiv]] 300 mg PO Q12H 5 Days #10 cap 05/03/20 The following prescriptions were given: Cefdinir [Omnicef [equiv]] 300 mg PO Q12H 5 Days #10 cap Transmission Status: Pending to [facility] Primary Care Physician: Vic Ny Chi, MD [Primary Care Provider] - Please follow up with your Primary Care Physician in: 1-2 weeks Test Results: Test results from this visit will be discussed in further detail at your follow- up appointment, if applicable. Proposed Discharge Date: 05/03/20
--- NOTE | 2020-05-03 15:24 | PCM.DC.SUM ---
Discharge Date and Diagnosis - Problem List Patient Problems: Active and Suspected Problems (Last Reviewed 05/02/20 @ 02:[address] Torsten Vines MD) Abdominal pain (Acute) Nausea & vomiting (Acute) Date of Admission: 05/01/20 Date of Discharge: 05/03/20 - Primary Discharge Diagnosis Acute Problems: Active Problems (Last Reviewed 05/02/20 @ 02:[address] Torsten Vines MD) Abdominal pain (Acute) Nausea & vomiting (Acute) UTI - Secondary Discharge Diagnosis Chronic Problems: Chronic Problems (Last Reviewed 05/02/20 @ 02:[address] Torsten Vines MD) History of alcohol abuse (Chronic) Inguinal hernia of left side without obstruction or gangrene (Chronic) SVT (supraventricular tachycardia) (Chronic) AV (arteriovenous fistula) (Chronic) H/O dilation and curettage (Chronic) 18 yo miscarriage Kidney disease, chronic, stage IV (GFR 15-29 ml/min) (Chronic) Alcoholic cirrhosis of liver with ascites (Chronic) Nutritional anemia (Chronic) Hypothyroidism (Chronic) Anemia (Chronic) Renal failure (Chronic) Spontaneous bacterial peritonitis (Chronic) Tobacco abuse (Chronic) Stage 1 mild COPD by GOLD classification (Chronic) Lung mass (Chronic) Hospital Course and Treatment Imaging Results: Diagnostic Data Abdomen Ultrasound 05/01/20 20:36 IMPRESSION: 1. Diffuse ascites. 2. Cirrhotic appearing liver with mild splenomegaly. 3. Fibroid uterus. 4. Left inguinal hernia containing omental fat. 5. Ectatic atherosclerotic abdominal aorta. 6. Marked degenerative changes of the lumbar spine Electronically Signed: Reggie Molina DO at 21:42 EST Tel [phone], Service support , Abdomen/Pelvis CT 05/01/20 20:37 IMPRESSION: 1. Diffuse ascites. 2. Cirrhotic appearing liver with mild splenomegaly. 3. Fibroid uterus. 4. Left inguinal hernia containing omental fat. 5. Ectatic atherosclerotic abdominal aorta. 6. Marked degenerative changes of the lumbar spine Electronically Signed: Reggie Molina DO at 21:42 EST Tel [phone], Service support , Paracentesis Ultrasound 12/17/20 22:49 IMPRESSION: Ultrasound guided paracentesis. Electronically Signed: Hernandez Eli, at 14:35 EST , Service support , Operations: None Procedures: Paracentesis Summary of Care Provided: The patient is a 60 year old F with an extensive past medical history as outlined. She was admitted through the ED on 05/01/2020 with a complaint of abdominal pain which was mainly in her epigastrium and radiated to her entire abdomen. Pain is improved when she relaxed. She had associated shortness of breath and anxiety and also nausea and vomiting. Symptoms started 2 days prior to admission. She went to her PCP and x-ray of the abdomen done showed that she was constipated so she was given magnesium citrate. She did have some bowel movements but abdominal pain subsequently recurred. She did admit to associated chills and said her symptoms were similar to when she had a spontaneous part to her peritonitis. Patient had been having paracentesis every Wednesday and the last paracentesis was the Wednesday before admission. Review of systems otherwise negative. CT of the abdomen and pelvis done showed diffuse ascites with cirrhotic appearing liver and mild splenomegaly. She was admitted and managed for abdominal pain due to possible spontaneous bacterial peritonitis. Paracentesis was ordered. Of note, she had a urinalysis done in her PCPs office and the results were faxed was the day after her admission and it showed that her urine culture grew Klebsiella pneumonia, Klebsiella oxytoca and Morganella morgagni, so she was started on IV ceftriaxone. Patient had ultrasound-guided paracentesis with removal of 100 cc of fluid. Fluid analysis did not give evidence of SBP. Abdominal pain subsequently resolved and she felt much better. She was discharged on 05/03/2020 with a prescription for p.o. cefdinir 300 mg twice daily for 5 days. She is follow-up with her primary care doctor in 1 to 2 weeks. Patient seen and examined prior to discharge. She had no complaints and felt well. She had had some nausea earlier in the morning but this subsequently resolved completely during the day. Review of systems otherwise negative. Labs and vitals reviewed. Medication reviewed and reconciled. O/e:' Vital Signs Temp Pulse Resp BP Pulse Ox 98.2 F 74 18 146/89 H 100 05/03/20 14:00 05/03/20 14:00 05/03/20 14:00 05/03/20 14:00 05/03/20 14:00 [] General: Alert, Oriented x3, Cooperative, No apparent distress HEENT: Atraumatic, PERRLA, EOMI, Normocephalic Oral: Dry Mucosa Neck: Supple, No JVD, Negative Carotid Bruits Lungs: Clear to auscultation, Normal air movement, No rhonchi Cardiovascular: Regular rate, Regular Rhythm, Normal S1, Normal S2, No murmurs Abdomen: Bowel Sounds Present, Soft, Non Tender, Extremities: No clubbing, No cyanosis, No edema, Capillary Refill Less than 3 Seconds Skin: No rashes, No breakdown Musculoskeletal: No Tenderness to Palpation of Joints or Extremities Lymphatic: No Cervical, Supraclavicular, or Inguinal Adenopathy Neurological: Cranial nerves II-XII grossly intact, Neuro grossly intact, Motor Exam 5/5 strength throughout Psych/Mental Status: Normal Affect, Appropriate, Alert and oriented to time, place, person, mood and affect Plan is for discharge home today. Patient Problems: Active and Suspected Problems (Last Reviewed 05/02/20 @ 02:[address] Torsten Vines MD) Abdominal pain (Acute) Nausea & vomiting (Acute) - Physical Exam Vitals/I&O's: Vital Signs Temp Pulse Resp BP Pulse Ox 98.2 F 74 18 146/89 H 100 05/03/20 14:00 05/03/20 14:00 05/03/20 14:00 05/03/20 14:00 05/03/20 14:00 Oxygen Delivery Method [2] Room Air Oxygen Delivery Method [1 ( Room Air Initial Baseline)] Oxygen Delivery Method Room Air Weight: 130 lb 11.746 oz Body Mass Index (BMI) 23.9 Intake and Output for Last 24 Hours 05/01/20 05/02/20 05/03/20 23:59 23:59 23:59 Intake Total 1000 / 1000 1542.5 / 1542.5 570 / 570 Output Total 100 / 100 Balance 1000 / 1000 1442.5 / 1442.5 570 / 570 Laboratory Results 05/02/20 13:20: Fl Pathologist Comment Reviewed 05/03/20 06:55: WBC 3.9 L, RBC 3.83 L, Hgb 11.7 L, Hct 35.2 L, MCV 91.9, MCH 30.5, MCHC 33.2, RDW Std Deviation 49.6 H, RDW Coeff of Constance 14.8 H, Plt Count 99 L, MPV 10.8, Immature Gran % (Auto) 0.300, Neut % (Auto) 52.0, Lymph % (Auto) 33.4, [place] % (Auto) 8.4, Eos % (Auto) 5.4 H, Baso % (Auto) 0.5, Absolute Neuts (auto) 2.0, Absolute Lymphs (auto) 1.31, Nucleated RBC % 0 05/03/20 06:55: Sodium 140, Potassium 3.7, Chloride 113 H, Carbon Dioxide 23.0, Anion Gap 4 L, BUN 18, Creatinine 1.13 H, Estim Creat Clear Calc 42.40, Est GFR (MDRD) Af Amer 63, Est GFR (MDRD) Non-Af 52 L, BUN/Creatinine Ratio 15.9, Glucose 84, Calcium 7.7 L Current Medications Albuterol Sulfate (Albuterol 2.5 Mg/3 Ml Vial.Neb.) 2.5 mg INHALATION Q2H PRN PRN PRN Reason: sob/wheezing Calcitriol (Calcitriol 0.25 Mcg Capsule) 0.25 mcg PO MoWeFr@1000 [facility] Last Admin: 05/03/20 10:44 Dose: Not Given Documented by: Citalopram Hydrobromide (Citalopram 10 Mg Tablet) 10 mg PO DAILY [facility] Last Admin: 05/03/20 10:43 Dose: Not Given Documented by: Hydroxyzine HCl (Hydroxyzine 10 Mg Tablet) 10 mg PO BID PRN PRN PRN Reason: ITCHING Last Admin: 05/02/20 00:00 Dose: 10 mg Documented by: Ceftriaxone Sodium (Rocephin) 1 gm in 50 mls @ 100 mls/hr IV Q24 [facility] Last Infusion: 05/03/20 09:46 Dose: Infused Documented by: Sodium Chloride () 250 mls @ 15 mls/hr IV .[id number] PRN PRN Reason: Saline Flush Last Infusion: 05/02/20 14:47 Dose: 0 mls/hr Documented by: Levothyroxine Sodium (Levothyroxine 50 Mcg Tablet) 50 mcg PO DAILY@0600 [facility] Last Admin: 05/03/20 06:14 Dose: 50 mcg Documented by: Melatonin (Melatonin 3 Mg Tablet) 3 mg PO QHS PRN PRN PRN Reason: INSOMNIA Metoprolol Tartrate (Metoprolol Tartrate 25 Mg Tablet) 25 mg PO BID [facility] Last Admin: 05/03/20 10:43 Dose: Not Given Documented by: Morphine Sulfate (Morphine 2 Mg/Ml Syringe) 2 mg IV Q3H PRN PRN PRN Reason: Pain Score 6-10 Last Admin: 05/03/20 09:17 Dose: 2 mg Documented by: Nicotine (Nicotine 14 Mg Patch) 14 mg TD DAILY [facility] Last Admin: 05/03/20 12:19 Dose: 14 mg Documented by: Nutritional Formula (Lactose Free) (Ensure Clear 120 Ml Liquid) 120 ml PO 4X/DAY [facility] Last Admin: 05/03/20 10:43 Dose: Not Given Documented by: Ondansetron HCl (Ondansetron 4 Mg/2 Ml Vial) 4 mg IV Q8H PRN PRN PRN Reason: NAUSEA/VOMITING Last Admin: 05/03/20 07:50 Dose: 4 mg Documented by: Pantoprazole Sodium (Pantoprazole Sodium 40 Mg Tablet) 40 mg PO DAILY [facility] Last Admin: 05/03/20 07:51 Dose: 40 mg Documented by: Promethazine HCl (Promethazine 25 Mg/Ml Syringe) 12.5 mg IV Q6H PRN PRN PRN Reason: NAUSEA/VOMITING Last Admin: 05/03/20 10:01 Dose: 12.5 mg Documented by: Rifaximin (Rifaximin 550 Mg Tablet) 550 mg PO BID [facility] Last Admin: 05/03/20 10:44 Dose: Not Given Documented by: Sodium Chloride (0.9% Saline Lock 10 Ml Syringe) 10 - 40 ml IV UD PRN PRN Reason: SALINE FLUSH Last Admin: 05/03/20 10:01 Dose: 10 ml Documented by: Discharge Diet: Low fat/ Low Cholesterol Discharge Activity: Return to Normal Activity Weight Bearing Status: Weight bearing as tolerated Call your doctor if you observe: Fever of 101 or Higher, Shortness of breath, Fainting spells, Swelling in the ankles Home Medications: Medications to take at Discharge pantoprazole 40 mg tablet,delayed release 40 mg PO DAILY 03/22/19 rifaximin 550 mg tablet 550 mg PO BID 03/22/19 levothyroxine 50 mcg capsule 50 mcg PO DAILY 04/03/19 calcitriol 0.25 mcg capsule 1 ea PO MOWEFR 10/17/19 albuterol sulfate 90 mcg/actuation aerosol inhaler 2 puff INHALATION Q4H PRN #1 device 11/23/19 metoprolol tartrate 25 mg tablet 25 mg PO BID #180 tab 04/10/20 hydroxyzine HCl 10 mg tablet 10 mg PO BID PRN tab 04/18/20 Citalopram Hydrobromide [Citalopram HBr] 10 mg PO DAILY 05/01/20 Cefdinir [Omnicef [equiv]] 300 mg PO Q12H 5 Days #10 cap 05/03/20 Following Prescriptions Were Given to Patient: Cefdinir [Omnicef [equiv]] 300 mg PO Q12H 5 Days #10 cap Transmission Status: Received by [facility] Primary Care Physician: Vic Ny Chi, MD [Primary Care Provider] - Please follow up with your Primary Care Physician in: 1-2 weeks Patient Instructions: Understanding Urinary Tract Infections (UTIs) Disposition: Home Minutes spent on discharge:: 40 Patient Condition:: Stable Medical Necessity - Tobacco Use Smoking Status: Current every day smoker Tobacco Use: Cigarettes Meaningful Use Info Meaningful Use Diagnoses (Choose all that apply): None applicable Inpatient E&M: 92637 Disch Hosp
[2020-05-03 16:30] VITALS: BP 146/89; PULSE 74; RESP 18; TEMP 36.8; O2SAT 100
== END 2020-05-03 16:27 | disposition home or self-care (01) ==
LOC: ED 21:34 → MS3 22:35
PROVIDERS: Admitting Provider Hospitalist; Emergency Provider Emergency Medicine; PCP Family Medicine Geriatric Medicine; Visit Provider Student in an Organized Health Care Education/Training Program
DX: N39.0 Urinary tract infection, site not specified (principal); K70.31 Alcoholic cirrhosis of liver with ascites; R16.1 Splenomegaly, not elsewhere classified; D25.9 Leiomyoma of uterus, unspecified; K40.90 Unilateral inguinal hernia, without obstruction or gangrene, not specified as recurrent; I47.1 Supraventricular tachycardia; N18.4 Chronic kidney disease, stage 4 (severe); E03.9 Hypothyroidism, unspecified; J44.9 Chronic obstructive pulmonary disease, unspecified; F41.9 Anxiety disorder, unspecified; F17.210 Nicotine dependence, cigarettes, uncomplicated; E87.6 Hypokalemia; M51.36 Other intervertebral disc degeneration, lumbar region; B96.1 Klebsiella pneumoniae [K. pneumoniae] as the cause of diseases classified elsewhere
CPT/HCPCS: 36415; 49083; 74176; 76705; 80048; 80053; 80076; 83735; 85025; 88108; 88305; 88313; 89050; 96365; 96366; 96375; 96376; 97802; 99218; 99285; 99406; J7050; A4216; G0378; J2405

== ENCOUNTER → 2020-05-08 11:44 | Outpatient (CLI) | payer MEDICARE, SELFPAY ==
[2020-03-01 11:25] VITALS: BMI 23.8
[2020-05-01 22:48] VITALS: BMI 23.9
--- NOTE | 2020-05-08 11:46 | US_ITS ---
PROCEDURE: Ultrasound guided paracentesis. DATE OF EXAMINATION: 05/08/2020. INDICATION: Female, 60 years old. Ascites. PHYSICIAN: Hernandez Eli M.D. TECHNIQUE: The risks, benefits, and alternatives to the procedure were explained to the patient. The specific risks of bleeding, infection, and damage to bowel were detailed and accepted. Witnessed informed consent was obtained. The abdomen was ultrasonographically surveyed. An appropriate pocket of fluid was identified at the left lower quadrant. The skin were cleaned and prepped in the usual sterile fashion. Using ultrasound guidance, the peritoneal cavity was accessed with a 5-Kyrgyz paracentesis needle/catheter system. The trocar was removed. A total of 4150 ml of brad-colored fluid were removed from the peritoneal cavity. The catheter was removed and a sterile dressing was applied. The procedure was well tolerated. US/Paracentesis with US IMPRESSION: Ultrasound guided paracentesis. Electronically Signed: Hernandez Eli, at 13:03 EST , Service support ,
[2020-05-08 11:58] VITALS: BP 120/67; BP 128/80; BP 136/77; BP 140/68; PULSE 62; PULSE 63; PULSE 65; RESP 18; TEMP 36.6; O2SAT 100; O2SAT 99
[2020-05-08 12:43] VITALS: BP 110/56; PULSE 56; RESP 16; TEMP 36.5; O2SAT 98; BMI 23.8
[2020-05-08] MEDS: Albumin Human 25% (100 mL) 25 GM/100 ML BAG IV ×2 (12:51→14:18)
[2020-05-08 16:08] VITALS: BP 122/73; PULSE 67; TEMP 36.9
== END ==
LOC: US 11:45 → MEDOUTP 12:34
PROVIDERS: PCP Family Medicine Geriatric Medicine; Referring Provider Internal Medicine Gastroenterology; Visit Provider Internal Medicine Gastroenterology
DX: K74.60 Unspecified cirrhosis of liver (principal)
CPT/HCPCS: 96365; 96366 ×2; 49083; P9047

== ENCOUNTER → 2020-05-09 08:07 | Outpatient (CLI) | payer MEDICARE, SELFPAY ==
[2020-03-22 11:23] VITALS: BMI 23.8
[2020-05-08 12:43] VITALS: BMI 23.8
--- NOTE | 2020-05-09 08:10 | BI_ITS ---
MAMMOGRAPHY - BILATERAL SCREENING REASON FOR EXAM: Female, 60 years old. Routine annual screening examination. PERTINENT HISTORY: Non-contributory. TECHNIQUE: Digital bilateral breast naida (3D mammographic acquisition) in the CC and MLO projections. 2-D mediolateral oblique (MLO) and craniocaudad (CC) views of both breasts were obtained. CAD: Full Field Digital Mammography with Computer Added Detection was performed. COMPARISON: Comparison is made with prior study dated 02/19/2018. FINDINGS: Breast Composition: There are scattered areas of fibroglandular density. There are no dominant masses or suspicious calcifications. No other significant abnormalities are identified. There has been no significant change since the prior study. BI/SCREEN MAMM (CAD) W/NAIDA BILAT IMPRESSION: Stable bilateral screening mammogram. Yearly follow-up mammogram recommended. (A) ASSESSMENT CATEGORY: BIRADS Category 1: Negative. A letter regarding these results will be sent to the patient by the facility within 30 days. Approximately 10% of breast cancers are not detected by mammography. A normal mammogram should not delay biopsy of a clinically suspicious abnormality. [id number] Electronically Signed: Hernandez Eli, at 9:30 EST , Service support ,
== END ==
PROVIDERS: PCP Family Medicine Geriatric Medicine; Referring Provider Family Medicine Geriatric Medicine; Visit Provider Family Medicine Geriatric Medicine
DX: Z12.31 Encounter for screening mammogram for malignant neoplasm of breast (principal)
CPT/HCPCS: 77063; 77067

== ENCOUNTER → 2020-05-15 10:50 | Outpatient (CLI) | payer MEDICARE, SELFPAY ==
[2020-03-01 11:25] VITALS: BMI 23.8
[2020-05-13 11:12] VITALS: BMI 25.7
--- NOTE | 2020-05-15 13:01 | NURSING ---
patient concerned that insurance was not going to cover this procedure, patient felt good no sob, vs 143/71, hr 60 , resp 16, po2 at 98% and temp oral was 98.2, patient and medical care team have discussed in the past to extend the amount of days between para's, talked with Dr. Morris and he agreed it was the patient choice to hold off till Wednesday for her next paracentesis, Brittanie felt really good about waiting till Wednesday for her procedure.
== END ==
PROVIDERS: PCP Family Medicine Geriatric Medicine; Referring Provider Internal Medicine Gastroenterology; Visit Provider Internal Medicine Gastroenterology
DX: R69 Illness, unspecified (principal)

== ENCOUNTER → 2020-05-20 09:52 | Outpatient (CLI) | payer MEDICARE, SELFPAY ==
[2020-05-13 11:12] VITALS: BMI 25.7
--- NOTE | 2020-05-20 09:55 | US_ITS ---
PROCEDURE: Ultrasound guided paracentesis. DATE OF EXAMINATION: 05/20/2020.. INDICATION: Female, 60 years old. Ascites. PHYSICIAN: Hernandez Eli M.D. TECHNIQUE: The risks, benefits, and alternatives to the procedure were explained to the patient. The specific risks of bleeding, infection, and damage to bowel were detailed and accepted. Witnessed informed consent was obtained. The abdomen was ultrasonographically surveyed. An appropriate pocket of fluid was identified at the right lower quadrant. The skin were cleaned and prepped in the usual sterile fashion. Using ultrasound guidance, the peritoneal cavity was accessed with a 5-Tamazight paracentesis needle/catheter system. The trocar was removed. A total of 5400 ml of brad-colored fluid were removed from the peritoneal cavity. The catheter was removed and a sterile dressing was applied. The procedure was well tolerated. US/Paracentesis with US IMPRESSION: Ultrasound guided paracentesis. Electronically Signed: Hernandez Eli, at 12:30 EST , Service support ,
[2020-05-20 10:24] VITALS: BP 135/77; BP 136/76; BP 146/74; PULSE 59; PULSE 60; PULSE 66; RESP 14; RESP 16; O2SAT 97; O2SAT 98; O2SAT 99
[2020-05-20 11:17] VITALS: BP 118/54; PULSE 58; RESP 16; TEMP 36.3; O2SAT 94; BMI 25.7
[2020-05-20] MEDS: Albumin Human 25% (100 mL) 25 GM/100 ML BAG IV ×2 (11:36→12:59)
[2020-05-20 14:43] VITALS: BP 124/76; PULSE 71; RESP 16; O2SAT 93
--- NOTE | 2020-05-21 17:26 | CASEMGMT ---
RN Care Coordination Follow-up: This RN CM called pt at home in follow-up to financial concerns expressed at her most recent visits. Pt had MCR for the month of March and then [employer] MCR for March and also for 2020. Pt with deductibles related to separate insurances and time periods. Pt with concerns over ability to pay co-pays ($270/visit per registration) and deductible ($3000). This RN CM discussed concerns with [facility] and options for assistance obtained. Discussed with pt who states she has previously completed the [employer] applications numerous times in regard to her previous bills and has received assistance. Pt states she will continue to complete these applications and states she will also call the [employer] customer service reps tomorrow to discuss a plan for her bills going forward. Pt states she was already paying $200/month on her previous balance and received a new bill for $300 for the March paracenteses. Discussed application for Medicaid. Pt states she has applied before and the $237 she receives from her 's benefit puts her over the income requirement. Encouraged pt to call [facility] to be re-evaluated as guidelines and her eligibility may have changed. Pt states she already receives food stamps and that she will call [facility] about Medicaid when she contacts them about her food stamps. Pt states she also receives assistance with her fuel oil through the HEAP program. Her rent is $500/month, electric $60-80/month, and she has a phone bill. Pt states she has about $400 left each month. Pt states she has also begun to receive bills from [facility] and she is agreeable to contacting their billing department to facilitate assistance. She states so far she has been able to pay the bill. Pt states she plans to stretch her paracentesis visits to every two weeks if she is able. She also states she has a follow-up appointment with Dr. Aguirre in a couple of weeks. Pt denies any additional issues or concerns at this time. Hanny Culp RN CM
--- NOTE | 2020-06-05 14:37 | CASEMGMT ---
Addendum entered by Gavin Nunn 06/05/20 15:09: Pt had an appt today with Dr Aguirre's STARTING SHEET TANK OPERATOR, Dominique, today. Per nurse @ Dr Aguirre's office, there are no notes in on the appt yet, so they were unable to provide any updated info on pt to this RN CM. Addendum entered by Gavin Nunn 06/05/20 15:02: Pt has an appt scheduled w/Dr Aguirre Original Note: RN CM Care coordination f/u: Current order from Dr Aguirre for paracentesis is Q week, but d/t financial reasons, pt has been scheduling procedures for every 10 days and has been tolerating this well. Call placed to Dr Aguirre's office and spoke w/Aimee. She was made aware of same. She states Dr Aguirre is not in this week, but she will send him a message informing him of this and states will fax an updated order for paracentesis to [facility] radiology dept if new order is received. Jana ALCALA RN CM
== END ==
PROVIDERS: PCP Family Medicine Geriatric Medicine; Referring Provider Internal Medicine Gastroenterology; Visit Provider Internal Medicine Gastroenterology
DX: K74.60 Unspecified cirrhosis of liver (principal); R18.8 Other ascites
CPT/HCPCS: 96365; 96366 ×2; 49083; P9047

== ENCOUNTER → 2020-06-06 07:57 | Outpatient (CLI) | payer MEDICARE, SELFPAY ==
[2020-05-13 11:12] VITALS: BMI 25.7
[2020-05-20 11:17] VITALS: BMI 25.7
--- NOTE | 2020-06-06 08:09 | US_ITS ---
PROCEDURE: Ultrasound guided paracentesis. DATE OF EXAMINATION: 06/06/2020. INDICATION: Female, 60 years old. Ascites. PHYSICIAN: Hernandez Eli M.D. TECHNIQUE: The risks, benefits, and alternatives to the procedure were explained to the patient. The specific risks of bleeding, infection, and damage to bowel were detailed and accepted. Witnessed informed consent was obtained. The abdomen was ultrasonographically surveyed. An appropriate pocket of fluid was identified at the left lower quadrant. The skin were cleaned and prepped in the usual sterile fashion. Using ultrasound guidance, the peritoneal cavity was accessed with a 5-Croatian paracentesis needle/catheter system. The trocar was removed. A total of 6850 ml of brad-colored fluid were removed from the peritoneal cavity. The catheter was removed and a sterile dressing was applied. The procedure was well tolerated. US/Paracentesis with US IMPRESSION: Ultrasound guided paracentesis. Electronically Signed: Hernandez Eli MD at 9:53 EST , Service support ,
[2020-06-06 08:15] LABS: Absolute Lymphocyte Count 1.29 X10^3/uL (0.83-4.51); Absolute Neutrophil Count 2.4 X10^3/uL (2.0-7.7); Basophil# 0.04 X10^3/uL; Basophil% 0.9 % (0-1); Eosinophil# 0.24 X10^3/uL; Eosinophils% 5.6 % (0-5); Hematocrit 37.8 % (37-47); Hemoglobin 12.3 g/dL (12.0-15.0); Lymphocyte # 1.29 X10^3/ul (4.0); Lymphocyte % 30.3 % (19-41); Mean Corp Hgb Conc 32.5 g/dL (32-36); Mean Corpuscular Hgb 30.2 pg (27.0-32.0); Mean Corpuscular Volume 92.9 fL (81-99); Mean Platelet Vol. 10.4 fl (6.2-12.0); Monocyte# 0.31 X10^3/uL; Monocyte% 7.3 % (0-10); NRBC Flagged by Analyzer 0 % (0-5); Neutrophil # 2.38 X10^3/uL (2.7-7.7); Neutrophil % 55.9 % (47-70); Platelet Count 121 K/mm3 (150-450); RBC Distribution Width CV 15.3 % (11.6-14.6); RBC Distribution Width SD 52.7 fl (35.1-43.9); Red Blood Count 4.07 M/mm3 (4.2-5.4); White Blood Count 4.3 K/mm3 (4.4-11.0)
[2020-06-06 08:22] LABS: International Normalized Ratio 1.3; Prothrombin Time (Protime)PT. 16.1 SECONDS (11.7-14.9)
[2020-06-06 08:37] LABS: ALB/GLOB Ratio 0.9 RATIO (0.9-2.4); AST(SGOT) 33 U/L (15-37); Alanine Aminotransfer ALT/SGPT 21 U/L (13-56); Alkaline Phosphatase 121 U/L (45-117); Anion Gap 4 (5-15); BUN 16 mg/dL (7-18); BUN/Creat Ratio 11.3 RATIO (10-20); Calcium,Total 7.8 mg/dL (8.5-10.1); Chloride 112 mmol/L (98-107); Creatinine, Serum 1.41 mg/dL (0.55-1.02); EST Glomerular Filtration Rate 41 mL/min (>60); Est Glom Filt Rate - Afr Amer 49 mL/min (>60); Globulin 3.5 g/dL (2.2-4.2); Glucose 178 mg/dL (74-106); Potassium 4.1 mmol/L (3.5-5.1); Protein, Total 6.5 g/dL (6.4-8.2); Sodium Level 140 mmol/L (136-145)
[2020-06-06 08:45] VITALS: BP 130/61; BP 136/92; BP 140/61; PULSE 62; PULSE 66; RESP 16; TEMP 36.9; O2SAT 97; O2SAT 98
[2020-06-06 09:26] VITALS: BP 129/52; PULSE 64; RESP 16; TEMP 37.2; O2SAT 98; BMI 25.7
[2020-06-06] MEDS: Albumin Human 25% (100 mL) 25 GM/100 ML BAG IV ×2 (09:48→11:19)
--- NOTE | 2020-06-06 11:33 | CASEMGMT ---
RN Care Coordination Follow-up: This RN CM met with patient [id number] in the infusion suite during Albumin infusion. Pt states she has been doing well with the less frequent paracenteses. She states she continues to do her best at limiting fluid intake and sodium and increasing proteins and food with iron. PCP: Pt has established with Dr. Ny. He has encouraged her to re-evaluate her decision regarding a liver transplant. Dr. Aguirre F/U: She had an appointment with Dr. Aguirre's ALUMINA PLANT SUPERVISOR Otilia yesterday and discussed possible liver transplant evaluation. They discussed [facility] vs referral. Pt is still undecided as she feels that the post-operative needs may exceed what her support system is able to provide. She is also concerned about the financial costs associated with the procedure, follow-up, etc. She states Dr. Ny offered her to stay in the TCU post-operatively under his care. Medications: She has switched from getting her chronic medications from [facility] to getting them via mail order via [employer]. She said she had gone a week without her pantoprazole during the transition but states she has all of her meds at this time. Pt states [employer] would not cover the Rifaximin and so LAURA Bingham is changing her to Lactulose. This is ready at the pharmacy for her and she is picking this up after her albumin infusion today. She states she will have the money to pay for this medication. Finances: Pt states she has been in touch with Selam from [facility]. Selam has explained that Brittanie can continue to pay the $200 monthly payment as prior and they will just add her new charges to her previous balance. Pt states she has been able to pay her [facility] bills. She explained that she gives what she can on each of the bills and has not received any calls from anyone with concerns. Pt continues to receive food stamps. Discussed application for Medicaid. Pt states she does not qualify. Emotional support: Pt states she had a rough week last night and had little motivation to do anything but lay on the couch. Pt states she is feeling better this week. Pt was tearful. Emotional support given. Pt denied needing any specific assistance at this time. Will continue to follow. Hanny Culp RN CM
[2020-06-06 13:12] VITALS: BP 122/67; PULSE 88
--- NOTE | 2020-06-12 14:10 | CASEMGMT ---
ANJALI COELHO NOTE: Call placed to Dr Aguirre's office and spoke w/nurse, Yary, re: pt getting paracentesis ~ Q 10 days now, instead of Q [address]. [address] Aguirre receives the radiology reports from [facility] when pt has her paracentesis and is aware of frequency pt is receiving them. She states the Q 7 day PRN paracentesis order is sufficient to cover for pt getting them Q 10 days or longer and no additional/updated order would be needed. They are awaiting pt's decision re: if she is decides to proceed w/re-evaluation for liver transplant and they will make a referral if pt is agreeable. Pt has next appt with Otilia @ Dr Aguirre's office on August 07 and EGD scheduled w/Dr Aguirre on August 22, 2020. Jana ALCALA RN, CM
== END ==
LOC: US 09:15 → MEDOUTP 09:20
PROVIDERS: PCP Family Medicine Geriatric Medicine; Referring Provider Internal Medicine Gastroenterology; Visit Provider Internal Medicine Gastroenterology
DX: K70.31 Alcoholic cirrhosis of liver with ascites (principal); I85.00 Esophageal varices without bleeding; D64.9 Anemia, unspecified
CPT/HCPCS: 96365; 96366 ×2; 36415; 49083; 80053; 82105; 82140; 85025; 85610; P9047

== ENCOUNTER → 2020-06-26 10:34 | Outpatient (CLI) | payer MEDICARE, SELFPAY ==
[2020-05-13 11:12] VITALS: BMI 25.7
[2020-06-06 09:26] VITALS: BMI 25.7
--- NOTE | 2020-06-26 10:36 | US_ITS ---
PROCEDURE: Ultrasound guided paracentesis. DATE OF EXAMINATION: 06/26/2020.. INDICATION: Female, 60 years old. Ascites. PHYSICIAN: Hernandez Eli M.D. TECHNIQUE: The risks, benefits, and alternatives to the procedure were explained to the patient. The specific risks of bleeding, infection, and damage to bowel were detailed and accepted. Witnessed informed consent was obtained. The abdomen was ultrasonographically surveyed. An appropriate pocket of fluid was identified at the right lower quadrant. The skin were cleaned and prepped in the usual sterile fashion. Using ultrasound guidance, the peritoneal cavity was accessed with a 5-Hungarian paracentesis needle/catheter system. The trocar was removed. A total of 6550 ml of brad-colored fluid were removed from the peritoneal cavity. The catheter was removed and a sterile dressing was applied. The procedure was well tolerated. US/Paracentesis with US IMPRESSION: Ultrasound guided paracentesis. Electronically Signed: Hernandez Eli MD at 12:26 EST , Service support ,
[2020-06-26 11:11] VITALS: BP 112/57; BP 118/68; BP 131/77; PULSE 65; PULSE 68; PULSE 73; RESP 16; TEMP 36.9; O2SAT 96; O2SAT 97
[2020-06-26 12:10] VITALS: BP 129/69; PULSE 67; RESP 16; TEMP 36.4; O2SAT 98; BMI 23.8
[2020-06-26] MEDS: Albumin Human 25% (100 mL) 25 GM/100 ML BAG IV ×2 (12:12→13:44)
[2020-06-26 15:37] VITALS: BP 144/76; PULSE 66; RESP 16; O2SAT 97
== END ==
PROVIDERS: PCP Family Medicine Geriatric Medicine; Referring Provider Internal Medicine Gastroenterology; Visit Provider Internal Medicine Gastroenterology
DX: K74.60 Unspecified cirrhosis of liver (principal)
CPT/HCPCS: 96365; 96366 ×2; 49083; P9047

== ENCOUNTER 2020-07-09 10:00 | Outpatient (CLI) | payer MEDICARE, SELFPAY ==
[2020-05-13 11:12] VITALS: BMI 25.7
[2020-06-26 12:10] VITALS: BMI 23.8
--- NOTE | 2020-07-09 10:15 | US_ITS ---
PROCEDURE: Ultrasound guided paracentesis. DATE OF EXAMINATION: 07/09/2020. INDICATION: Female, 60 years old. Ascites. PHYSICIAN: Hernandez Eli M.D. TECHNIQUE: The risks, benefits, and alternatives to the procedure were explained to the patient. The specific risks of bleeding, infection, and damage to bowel were detailed and accepted. Witnessed informed consent was obtained. The abdomen was ultrasonographically surveyed. An appropriate pocket of fluid was identified at the right lower quadrant. The skin were cleaned and prepped in the usual sterile fashion. Using ultrasound guidance, the peritoneal cavity was accessed with a 5-Greek paracentesis needle/catheter system. The trocar was removed. A total of 6900 ml of brad-colored fluid were removed from the peritoneal cavity. The catheter was removed and a sterile dressing was applied. The procedure was well tolerated. US/Paracentesis with US IMPRESSION: Ultrasound guided paracentesis. Electronically Signed: Hernandez Eli MD at 12:02 EST , Service support ,
[2020-07-09 10:22] LABS: Platelet Count 127 K/mm3 (150-450)
[2020-07-09 10:34] LABS: International Normalized Ratio 1.4; Prothrombin Time (Protime)PT. 16.5 SECONDS (11.7-14.9)
[2020-07-09 10:35] LABS: Partial Thromboplast Time 33.2 Seconds (24.1-36.2)
[2020-07-09 11:17] VITALS: BP 148/81; BP 148/83; PULSE 66; PULSE 67; RESP 16; TEMP 36.8; O2SAT 100
[2020-07-09 11:36] VITALS: BP 116/70; PULSE 61; RESP 16; TEMP 36.3; O2SAT 99; BMI 23.8
[2020-07-09] MEDS: Albumin Human 25% (100 mL) 25 GM/100 ML BAG IV ×2 (11:52→13:24)
== END 2020-07-09 16:00 ==
LOC: US 10:01 → MEDOUTP 11:23
PROVIDERS: PCP Family Medicine Geriatric Medicine; Referring Provider Internal Medicine Gastroenterology; Visit Provider Internal Medicine Gastroenterology
DX: K74.60 Unspecified cirrhosis of liver (principal)
CPT/HCPCS: 96365; 96366 ×2; 36415; 49083; 85049; 85610; 85730; P9047

== ENCOUNTER → 2020-07-15 12:09 | Outpatient (CLI) | payer MEDICARE, SELFPAY ==
[2020-07-09 11:36] VITALS: BMI 23.8
[2020-07-15 12:38] LABS: Absolute Lymphocyte Count 1.48 X10^3/uL (0.83-4.51); Absolute Neutrophil Count 3.1 X10^3/uL (2.0-7.7); Basophil# 0.03 X10^3/uL; Basophil% 0.6 % (0-1); Eosinophil# 0.24 X10^3/uL; Eosinophils% 4.6 % (0-5); Hematocrit 40.9 % (37-47); Lymphocyte # 1.48 X10^3/ul (4.0); Lymphocyte % 28.3 % (19-41); Mean Corp Hgb Conc 31.8 g/dL (32-36); Mean Corpuscular Hgb 29.7 pg (27.0-32.0); Mean Corpuscular Volume 93.4 fL (81-99); Mean Platelet Vol. 10.6 fl (6.2-12.0); Monocyte# 0.41 X10^3/uL; Monocyte% 7.8 % (0-10); NRBC Flagged by Analyzer 0 % (0-5); Neutrophil # 3.05 X10^3/uL (2.7-7.7); Neutrophil % 58.3 % (47-70); Platelet Count 143 K/mm3 (150-450); RBC Distribution Width CV 15.4 % (11.6-14.6); RBC Distribution Width SD 53.4 fl (35.1-43.9); Red Blood Count 4.38 M/mm3 (4.2-5.4); White Blood Count 5.2 K/mm3 (4.4-11.0)
[2020-07-15 13:10] LABS: ALB/GLOB Ratio 0.9 RATIO (0.9-2.4); AST(SGOT) 34 U/L (15-37); Alanine Aminotransfer ALT/SGPT 24 U/L (13-56); Albumin, Serum 3.3 g/dL (3.2-5.0); Alkaline Phosphatase 109 U/L (45-117); Anion Gap 7 (5-15); BUN 21 mg/dL (7-18); BUN/Creat Ratio 15.2 RATIO (10-20); Calcium,Total 8.7 mg/dL (8.5-10.1); Chloride 111 mmol/L (98-107); Creatinine, Serum 1.38 mg/dL (0.55-1.02); EST Glomerular Filtration Rate 42 mL/min (>60); Est Glom Filt Rate - Afr Amer 50 mL/min (>60); Globulin 3.7 g/dL (2.2-4.2); Glucose 90 mg/dL (74-106); Potassium 4.3 mmol/L (3.5-5.1); Sodium Level 140 mmol/L (136-145)
== END ==
PROVIDERS: PCP Family Medicine Geriatric Medicine; Visit Provider Family Medicine Geriatric Medicine
DX: E55.9 Vitamin D deficiency, unspecified (principal); R53.83 Other fatigue
CPT/HCPCS: 36415; 80053; 82306; 84443; 85025

== ENCOUNTER → 2020-07-24 09:52 | Outpatient (CLI) | payer MEDICARE, SELFPAY ==
[2020-07-09 11:36] VITALS: BMI 23.8
--- NOTE | 2020-07-24 09:53 | US_ITS ---
PROCEDURE: ULTRASOUND GUIDED PARACENTESIS CLINICAL HISTORY: Female, 60 years old. ASCITES CONSENT: The risks, benefits and alternatives to the procedure were explained to the patient, and the patient agreed to the procedure and signed the consent. SEDATION: Local Anesthesia STERILE BARRIER TECHNIQUE: The following sterile barrier precautions were used during the procedure: hand hygiene; use of 2% chlorhexidine aseptic; use of a cap, mask, sterile gown, sterile gloves, sterile full body drape, and a large sterile sheet. PROCEDURE/TECHNIQUE: The risks, benefits, and alternatives to the procedure were explained to patient, and the patient agreed to the procedure and signed a consent form for the procedure. TECHNIQUE: Under the ultrasound guidance using sterile technique and after infiltration of the skin and subcutaneous soft tissues with 10 mL of lidocaine 1% a 5 Khmer drainage catheter is introduced in the lower part of the abdomen. 7950 mL of fluid were removed sample sent to lab for evaluation. The patient tolerated the procedure there was no immediate complication. FINDINGS: FLUID PRE-PROCEDURE There is posterior enhancement. The findings appear anechoic. There is no loculation. FLUID POST-PROCEDURE Amount of fluid drained: 7950 ml. US/Paracentesis with US IMPRESSION: Successful ultrasound-guided paracentesis. Electronically Signed: Boo Gonzalez MD at 16:58 EST Tel , Service support ,
[2020-07-24 10:26] VITALS: BP 105/51; BP 128/62; BP 133/67; PULSE 58; PULSE 61; RESP 14; O2SAT 98
[2020-07-24] MEDS: Albumin Human 25% (100 mL) 25 GM/100 ML BAG IV ×2 (11:27→13:07)
[2020-07-24 11:33] VITALS: BP 99/50; PULSE 61; RESP 16; BMI 23.8
[2020-07-24 14:56] VITALS: BP 106/62; PULSE 66
== END ==
LOC: US 09:52 → MEDOUTP 11:24
PROVIDERS: PCP Family Medicine Geriatric Medicine; Referring Provider Internal Medicine Gastroenterology; Visit Provider Internal Medicine Gastroenterology
DX: K74.60 Unspecified cirrhosis of liver (principal)
CPT/HCPCS: 96365; 96366 ×3; 49083; P9047

== ENCOUNTER → 2020-08-06 10:21 | Outpatient (CLI) | payer MEDICARE, SELFPAY ==
[2020-07-09 11:36] VITALS: BMI 23.8
[2020-07-24 11:33] VITALS: BMI 23.8
--- NOTE | 2020-08-06 10:23 | US_ITS ---
PROCEDURE: Ultrasound guided paracentesis. DATE OF EXAMINATION: 08/06/2020. INDICATION: Female, 60 years old. Ascites. PHYSICIAN: Hernandez Eli M.D. TECHNIQUE: The risks, benefits, and alternatives to the procedure were explained to the patient. The specific risks of bleeding, infection, and damage to bowel were detailed and accepted. Witnessed informed consent was obtained. The abdomen was ultrasonographically surveyed. An appropriate pocket of fluid was identified at the right lower quadrant. The skin were cleaned and prepped in the usual sterile fashion. Using ultrasound guidance, the peritoneal cavity was accessed with a 5-Tajik paracentesis needle/catheter system. The trocar was removed. A total of 7500 ml of brad-colored fluid were removed from the peritoneal cavity. The catheter was removed and a sterile dressing was applied. The procedure was well tolerated. US/Paracentesis with US IMPRESSION: Ultrasound guided paracentesis. Electronically Signed: Hernandez Eli MD at 12:52 EDT , Service support ,
[2020-08-06 10:40] VITALS: BP 126/71; BP 132/70; BP 141/70; PULSE 59; PULSE 60; PULSE 62; RESP 16; O2SAT 100; O2SAT 98; O2SAT 99
[2020-08-06 11:44] VITALS: BP 118/66; PULSE 61; RESP 16; TEMP 36.2; O2SAT 98; BMI 23.8
[2020-08-06] MEDS: Albumin Human 25% (100 mL) 25 GM/100 ML BAG IV ×2 (12:02→13:29)
[2020-08-06 15:20] VITALS: BP 122/67; PULSE 65
--- NOTE | 2020-08-07 10:30 | CASEMGMT ---
Addendum entered by Gavin Nunn 08/07/20 11:51: Pt states she has been getting her meds through the mail without difficulty and is pleased with [facility] mail-order service. Original Note: RN CM Care coordination note: Phone call placed to pt at this time. Pt states I'm still getting a lot of bills, but I'm keeping my head up and I'm keeping up on them. She states she is currently on the way to an appt with SALES AND SERVICE CONSULTANT,Dominique, for Dr Aguirre. She states she has decided to give the go ahead for a liver transplant and the plan is for Dominique to send a referral to for a liver transplant after the appt today. She also has an EGD scheduled in a couple of weeks. Pt states she has spoken with a lady from the transplant team with [facility], and states she has been pleased with how involved they have been with following up with her. She denies having any needs or concerns at this time for this RN CM. Encouraged pt to f/u with RN CM if any needs/concerns arise. She voices appreciation for the phone call. Jana ALCALA RN CM
--- NOTE | 2020-08-07 11:27 | NURSING ---
Pt had appt with Dr. Aguirre today 08/07/20 and she is making a referral to for liver transplant consideration. Pt has EGD schedule for 08/22/20, next paracentesis 08/20/20.
== END ==
PROVIDERS: PCP Family Medicine Geriatric Medicine; Referring Provider Internal Medicine Gastroenterology; Visit Provider Internal Medicine Gastroenterology
DX: K74.60 Unspecified cirrhosis of liver (principal); R18.8 Other ascites
CPT/HCPCS: 96365; 96366 ×2; 49083; P9047; A4216

== ENCOUNTER 2020-08-08 08:31 | Outpatient (RCR) | payer MEDICARE, SELFPAY ==
[2020-03-22 11:23] VITALS: BMI 23.8
[2020-08-06 11:44] VITALS: BMI 23.8
[2020-08-08 11:12] LABS: International Normalized Ratio 1.3; Prothrombin Time (Protime)PT. 15.9 SECONDS (11.7-14.9)
[2020-08-08 11:13] LABS: Partial Thromboplast Time 33.8 Seconds (24.1-36.2)
== END 2020-08-08 18:00 | disposition home or self-care (01) ==
LOC: LAB 08:31
PROVIDERS: PCP Family Medicine Geriatric Medicine; Referring Provider Internal Medicine Gastroenterology; Visit Provider Internal Medicine Gastroenterology
DX: K70.31 Alcoholic cirrhosis of liver with ascites (principal); D64.9 Anemia, unspecified; R19.04 Left lower quadrant abdominal swelling, mass and lump; I85.00 Esophageal varices without bleeding; K57.30 Diverticulosis of large intestine without perforation or abscess without bleeding
CPT/HCPCS: 36415; 85610; 85730

== ENCOUNTER → 2020-08-20 08:05 | Outpatient (CLI) | payer MEDICARE, SELFPAY ==
[2020-07-24 11:33] VITALS: BMI 23.8
[2020-08-06 11:44] VITALS: BMI 23.8
--- NOTE | 2020-08-20 08:32 | US_ITS ---
PROCEDURE: ULTRASOUND GUIDED PARACENTESIS CLINICAL HISTORY: Female, 60 years old. CIRRHOSIS CONSENT: Informed consent obtained Time-Out Called: Yes. Consent form signed: Yes. PT-PTT Levels Checked: Yes. SEDATION: Localized with 2% XYLOCAINE TECHNIQUE: Ultrasound guided FINDINGS: FLUID PRE-PROCEDURE There is posterior enhancement. The findings appear anechoic. There is no loculation. FLUID POST-PROCEDURE Amount of fluid drained: 7550 ml. Residual image volume: Minimal ascites remaining An area in the right lower quadrant was marked for paracentesis. A large volume of anechoic fluid was noted. Under sonographic guidance, a [place] catheter was advanced into the peritoneal cavity and straw-colored serous fluid was obtained. Fluid was drained via vacuum pump. Patient tolerated procedure well and no immediate complications US/Paracentesis with US IMPRESSION: Successful therapeutic large volume paracentesis Electronically Signed: Amado Orozco MD at 10:21 EDT , Service support ,
[2020-08-20 08:55] LABS: Hematocrit 36.7 % (37-47); Hemoglobin 11.6 g/dL (12.0-15.0); Mean Corp Hgb Conc 31.6 g/dL (32-36); Mean Corpuscular Hgb 29.8 pg (27.0-32.0); Mean Corpuscular Volume 94.3 fL (81-99); Mean Platelet Vol. 10.7 fl (6.2-12.0); Platelet Count 112 K/mm3 (150-450); RBC Distribution Width CV 15.4 % (11.6-14.6); RBC Distribution Width SD 53.1 fl (35.1-43.9); Red Blood Count 3.89 M/mm3 (4.2-5.4); White Blood Count 4.2 K/mm3 (4.4-11.0)
[2020-08-20 09:02] VITALS: BP 124/72; BP 132/64; BP 133/79; PULSE 54; PULSE 57; PULSE 59; RESP 16; O2SAT 98; O2SAT 99
[2020-08-20 09:22] LABS: PTHIN 218.4 pg/mL (18.4-80.1)
[2020-08-20 09:25] LABS: Albumin, Serum 2.7 g/dL (3.2-5.0); BUN 20 mg/dL (7-18); BUN/Creat Ratio 14.9 RATIO (10-20); Calcium,Total 8.1 mg/dL (8.5-10.1); Chloride 111 mmol/L (98-107); Creatinine, Serum 1.34 mg/dL (0.55-1.02); EST Glomerular Filtration Rate 43 mL/min (>60); Est Glom Filt Rate - Afr Amer 52 mL/min (>60); Glucose 157 mg/dL (74-106); Phosphorus 3.8 mg/dL (2.5-4.9); Potassium 4.1 mmol/L (3.5-5.1); Sodium Level 138 mmol/L (136-145)
[2020-08-20 09:42] LABS: 24 Hour Urine Protein 97.4 mg/24HR (<150 MG/24HR); 24HR. UA Prot. Total Volume 275 mL; Urine Protein (24 Hour) 35.4 mg/dL (<11.9)
[2020-08-20 09:55] VITALS: BP 124/60; PULSE 60; RESP 16; TEMP 36.6; O2SAT 100; BMI 23.3
[2020-08-20] MEDS: Albumin Human 25% (100 mL) 25 GM/100 ML BAG IV ×2 (10:03→11:34)
[2020-08-20 13:33] VITALS: BP 106/54; PULSE 60; RESP 16; TEMP 36.7; O2SAT 97
[2020-08-30 11:07] LABS: Creat.Clear Total Volume 275 mL
[2020-08-30 11:08] LABS: Creatinine Clearance 33 ml/min (100-200); Creatinine Serum Creat 1.3 mg/dL (0.6-1.0); EST Glomerular Filtration Rate 45 mL/min (>60); Est Glom Filt Rate - Afr Amer 45 mL/min (>60)
== END ==
PROVIDERS: PCP Family Medicine Geriatric Medicine; Referring Provider Internal Medicine Gastroenterology; Visit Provider Internal Medicine Gastroenterology
DX: K74.60 Unspecified cirrhosis of liver (principal)
CPT/HCPCS: 96365; 96366 ×2; 36415; 49083; 80069; 82570; 82575; 83970; 84156; 85027; P9047

== ENCOUNTER → 2020-08-21 14:58 | Outpatient (CLI) | payer MEDICARE, SELFPAY ==
[2020-08-06 11:44] VITALS: BMI 23.8
[2020-08-19 09:31] LABS: Anion Gap 4 (5-15); BUN 18 mg/dL (7-18); BUN/Creat Ratio 13.7 RATIO (10-20); Calcium,Total 8.1 mg/dL (8.5-10.1); Chloride 108 mmol/L (98-107); Creatinine, Serum 1.31 mg/dL (0.55-1.02); EST Glomerular Filtration Rate 44 mL/min (>60); Est Glom Filt Rate - Afr Amer 53 mL/min (>60); Glucose 161 mg/dL (74-106); Potassium 3.9 mmol/L (3.5-5.1); Sodium Level 139 mmol/L (136-145)
[2020-08-20 09:55] VITALS: BMI 23.3
--- NOTE | 2020-08-21 15:02 | CT_ITS ---
STUDY: CT ABDOMEN AND PELVIS WITH CONTRAST REASON FOR EXAM: Female, 60 years old. Cirrhotic liver RADIATION DOSAGE (If Supplied By Facility): CTDIvol = ( 11.37 ) mGy, DLP = ( 433.56 ) mGycm TECHNIQUE: Transaxial images were obtained from the dome of the diaphragm to the symphysis pubis without oral contrast. Oral and IV Read i-CAT; 100mL Isovue-300 was administered. Sagittal and coronal images were reconstructed. Individualized dose optimization techniques were used for this CT. COMPARISON: 05/31/2018 FINDINGS: The visualized lung bases demonstrate a 2 mm nodule at the right base not seen on the prior exam. The visualized portions of the heart are within normal limits. There is a diffuse contour abnormality of the liver consistent with cirrhotic changes. The gallbladder is contracted. Normal spleen. Normal pancreas. Small cyst at the anterior right dome liver. Normal bilateral adrenal glands. There is moderate cortical atrophy of the right kidney, consistent with chronic medical renal disease. There is moderate cortical atrophy of the left kidney, consistent with chronic medical renal disease. Moderate diffuse ascites. Normal visualized stomach. Normal small intestine. Normal colon. The appendix is visualized and appears normal. Diffuse atherosclerosis and small infrarenal aneurysm which measures up to 2.7 cm x 2.4 cm, similar to prior. Normal inferior vena cava. Normal retroperitoneum. Normal urinary bladder. Enlarged heterogeneous uterus Fluid containing left inguinal hernia. Normal osseous structures. CT/Abdomen/Pelvis WITH Contrast IMPRESSION: Significant cirrhosis with moderate diffuse ascites. Small infrarenal abdominal aortic aneurysm as above. Enlarged heterogeneous uterus may be attributable to fibroids and can be further assessed with a pelvic sonogram. Fluid containing left inguinal hernia. Small right lung base nodule measures 2 mm, not seen on the prior examination. Fleischner Society Recommendations for Follow-up and Management of Nodules Smaller than 8 mm Detected Incidentally at Nonscreening CT. Nodule size < or = 4 mm: Low-Risk Patient - No follow-up needed. High-Risk Patient - Follow-up CT at 12 months; if unchanged, no further follow-up. Nodule size > 4-6 mm: Low-Risk Patient - Follow-up CT at 12 months; if unchanged, no further follow-up. High-Risk Patient - Initial follow-up CT at 6-12 months then at 18-24 months if no change. Nodule size > 6-8 mm: Low-Risk Patient - Initial follow-up CT at 6-12 months then at 18-24 months if no change. High-Risk Patient - Initial follow-up CT at 3-6 months then at 9-12 and 24 months if no change. Nodule size > 8 mm: Low-Risk Patient - Follow-up CT at around 3,9 and 24 months. Dynamic contrast-enhanced CT, PET and/or biopsy. High-Risk Patient - Same as for low-risk patient. Low-Risk = Minimal or absent history of smoking and of other known risk factors. High-Risk = History of smoking or of other known risk factors. Electronically Signed: Thomas Zhang MD at 16:31 EDT Tel , Service support ,
== END ==
PROVIDERS: PCP Family Medicine Geriatric Medicine; Referring Provider Internal Medicine Gastroenterology; Visit Provider Internal Medicine Gastroenterology
DX: K70.31 Alcoholic cirrhosis of liver with ascites (principal); R19.4 Change in bowel habit
CPT/HCPCS: 36415; 74177; 80048; Q9967

== ENCOUNTER → 2020-08-28 14:36 | Outpatient (CLI) | payer MEDICARE, SELFPAY ==
[2020-08-20 09:55] VITALS: BMI 23.3
[2020-08-28 16:18] LABS: Anion Gap 3 (5-15); BUN 18 mg/dL (7-18); BUN/Creat Ratio 12.7 RATIO (10-20); Calcium,Total 8.3 mg/dL (8.5-10.1); Chloride 109 mmol/L (98-107); Creatinine, Serum 1.42 mg/dL (0.55-1.02); EST Glomerular Filtration Rate 40 mL/min (>60); Est Glom Filt Rate - Afr Amer 49 mL/min (>60); Glucose 66 mg/dL (74-106); Potassium 4.3 mmol/L (3.5-5.1); Sodium Level 138 mmol/L (136-145)
== END ==
PROVIDERS: PCP Family Medicine Geriatric Medicine; Visit Provider Internal Medicine Nephrology
DX: N18.4 Chronic kidney disease, stage 4 (severe) (principal)
CPT/HCPCS: 36415; 80048

== ENCOUNTER 2020-09-03 08:19 | Outpatient (CLI) | payer MEDICARE, SELFPAY ==
[2020-07-24 11:33] VITALS: BMI 23.8
[2020-08-20 09:55] VITALS: BMI 23.3
--- NOTE | 2020-09-03 08:22 | US_ITS ---
PROCEDURE: Ultrasound guided paracentesis. DATE OF EXAMINATION: 09/03/2020. INDICATION: Female, 60 years old. Ascites. PHYSICIAN: Hernandez Eli M.D. TECHNIQUE: The risks, benefits, and alternatives to the procedure were explained to the patient. The specific risks of bleeding, infection, and damage to bowel were detailed and accepted. Witnessed informed consent was obtained. The abdomen was ultrasonographically surveyed. An appropriate pocket of fluid was identified at the right lower quadrant. The skin were cleaned and prepped in the usual sterile fashion. Using ultrasound guidance, the peritoneal cavity was accessed with a 5-Kenyan paracentesis needle/catheter system. The trocar was removed. A total of 7200 ml of brad-colored fluid were removed from the peritoneal cavity. The catheter was removed and a sterile dressing was applied. The procedure was well tolerated. US/Paracentesis with US IMPRESSION: Ultrasound guided paracentesis. Electronically Signed: Hernandez Eli MD at 10:02 EDT , Service support ,
[2020-09-03 08:44] VITALS: BP 115/68; BP 136/79; PULSE 57; PULSE 59; PULSE 61; RESP 14; TEMP 36.8; O2SAT 98; O2SAT 99
[2020-09-03 09:41] VITALS: BP 97/46; PULSE 56; RESP 16; TEMP 36.5; O2SAT 99; BMI 23.3
[2020-09-03] MEDS: Albumin Human 25% (100 mL) 25 GM/100 ML BAG IV ×2 (09:57→11:35)
[2020-09-03 13:32] VITALS: BP 115/51; PULSE 65
== END 2020-09-03 14:00 ==
LOC: US 08:19 → MEDOUTP 09:34
PROVIDERS: PCP Family Medicine Geriatric Medicine; Referring Provider Internal Medicine Gastroenterology; Visit Provider Internal Medicine Gastroenterology
DX: K74.60 Unspecified cirrhosis of liver (principal); R18.8 Other ascites
CPT/HCPCS: 96365; 96366 ×3; 49083; P9047

== ENCOUNTER → 2020-09-17 08:25 | Outpatient (CLI) | payer MEDICARE, SELFPAY ==
[2020-09-03 09:41] VITALS: BMI 23.3
--- NOTE | 2020-09-17 08:27 | US_ITS ---
PROCEDURE: Ultrasound guided paracentesis. DATE OF EXAMINATION: 09/17/2020. INDICATION: Female, 60 years old. Ascites. PHYSICIAN: Hernandez Eli M.D. TECHNIQUE: The risks, benefits, and alternatives to the procedure were explained to the patient. The specific risks of bleeding, infection, and damage to bowel were detailed and accepted. Witnessed informed consent was obtained. The abdomen was ultrasonographically surveyed. An appropriate pocket of fluid was identified at the right lower quadrant. The skin were cleaned and prepped in the usual sterile fashion. Using ultrasound guidance, the peritoneal cavity was accessed with a 5-Latvian paracentesis needle/catheter system. The trocar was removed. A total of 6800 ml of brad-colored fluid were removed from the peritoneal cavity. The catheter was removed and a sterile dressing was applied. The procedure was well tolerated. US/Paracentesis with US IMPRESSION: Ultrasound guided paracentesis. Electronically Signed: Hernandez Eli MD at 9:50 EDT , Service support ,
[2020-09-17 08:40] VITALS: BP 112/64; BP 132/73; BP 145/75; BP 147/74; BP 151/79; PULSE 63; PULSE 67; PULSE 68; PULSE 69; PULSE 73; RESP 16; RESP 18; TEMP 36.8; O2SAT 96; O2SAT 97; O2SAT 98; O2SAT 99
[2020-09-17 09:46] VITALS: BP 101/62; PULSE 62; RESP 16; TEMP 36.3; O2SAT 97; BMI 23.6
[2020-09-17] MEDS: Albumin Human 25% (100 mL) 25 GM/100 ML BAG IV ×2 (10:15→11:42)
[2020-09-17 13:39] VITALS: BP 110/55; PULSE 71; RESP 16; O2SAT 99
--- NOTE | 2020-09-30 16:43 | CASEMGMT ---
ANJALI COELHO Care coordination note: ANJALI COELHO placed call to pt. She states she was just informed today that she was approved for the liver transplant and the next step is to start testing for getting a kidney transplant approved as well, as she will have to have a double transplant of both the liver and kidney. She will have this testing done @ . She states, It's going to be a big deal. It's a little scary but I'm doing pretty good with all of it and it was helpful hearing that I was approved for the liver today. She denies having any CM needs at this time. Pt was made aware that d/t no present needs/concerns that CM would not be continuing to call to f/u with her, but CM would be available if any needs would arise. Pt was instructed to contact ANJALI COELHO if any needs/questions/concerns do arise in the future. She states she does have contact #'s for this ANJALI COELHO and Evelyn Long, Lead ANJALI COELHO, and would reach out if anything does arise. Pt voices appreciation for the call and for all of the assistance that has been provided. Jana ALCALA RN, CM
== END ==
LOC: US 08:25 → MEDOUTP 09:33
PROVIDERS: PCP Family Medicine Geriatric Medicine; Referring Provider Internal Medicine Gastroenterology; Visit Provider Internal Medicine Gastroenterology
DX: K74.60 Unspecified cirrhosis of liver (principal); R18.8 Other ascites
CPT/HCPCS: 96365; 96366 ×2; 49083; P9047

== ENCOUNTER → 2020-10-01 08:24 | Outpatient (CLI) | payer MEDICARE, SELFPAY ==
[2020-09-03 09:41] VITALS: BMI 23.3
[2020-09-17 09:46] VITALS: BMI 23.6
--- NOTE | 2020-10-01 08:25 | US_ITS ---
PROCEDURE: ULTRASOUND GUIDED PARACENTESIS CLINICAL HISTORY: Female, 60 years old. CIRRHOSIS CONSENT: Informed consent obtained Time-Out Called: Yes. Consent form signed: Yes. PT-PTT Levels Checked: Yes. SEDATION: Local sedation with 2% XYLOCAINE TECHNIQUE: Ultrasound guided FINDINGS: FLUID PRE-PROCEDURE There is posterior enhancement. The findings appear anechoic. There is no loculation. FLUID POST-PROCEDURE Amount of fluid drained: 6500 ml. US/Paracentesis with US IMPRESSION: Successful sonographically guided large volume paracentesis. 6500 mL of straw-colored serous fluid withdrawn, patient tolerated the procedure well with no immediate complications and was sent home in stable condition Electronically Signed: Amado Orozco MD at 9:56 EDT , Service support ,
[2020-10-01 09:47] VITALS: BP 111/23; BP 115/67; BP 116/71; BP 122/65; PULSE 57; PULSE 58; PULSE 59; RESP 16; RESP 18; TEMP 36.4; TEMP 36.7; O2SAT 100; O2SAT 92; O2SAT 96; O2SAT 98; BMI 23.6
[2020-10-01] MEDS: Albumin Human 25% (100 mL) 25 GM/100 ML BAG IV ×2 (09:50→11:20)
[2020-10-01 13:13] VITALS: BP 119/56; PULSE 70; RESP 16; O2SAT 98
== END ==
LOC: US 08:25 → MEDOUTP 09:44
PROVIDERS: PCP Family Medicine Geriatric Medicine; Referring Provider Internal Medicine Gastroenterology; Visit Provider Internal Medicine Gastroenterology
DX: K74.60 Unspecified cirrhosis of liver (principal); R18.8 Other ascites
CPT/HCPCS: 96365; 96366 ×2; 49083; P9047

== ENCOUNTER → 2020-10-02 08:55 | Outpatient (CLI) | payer MEDICARE, SELFPAY ==
[2020-10-01 09:47] VITALS: BMI 23.6
[2020-10-02 10:59] LABS: Anion Gap 6 (5-15); BUN 22 mg/dL (7-18); BUN/Creat Ratio 15.6 RATIO (10-20); Calcium,Total 8.5 mg/dL (8.5-10.1); Chloride 106 mmol/L (98-107); Creatinine, Serum 1.41 mg/dL (0.55-1.02); EST Glomerular Filtration Rate 41 mL/min (>60); Est Glom Filt Rate - Afr Amer 49 mL/min (>60); Glucose 97 mg/dL (74-106); Potassium 3.7 mmol/L (3.5-5.1); Sodium Level 141 mmol/L (136-145)
== END ==
PROVIDERS: PCP Family Medicine Geriatric Medicine; Referring Provider Internal Medicine Gastroenterology; Visit Provider Internal Medicine Gastroenterology
DX: K74.60 Unspecified cirrhosis of liver (principal); R18.8 Other ascites; R19.4 Change in bowel habit; R11.0 Nausea
CPT/HCPCS: 36415; 80048

== ENCOUNTER → 2020-10-09 10:49 | Outpatient (CLI) | payer MEDICARE, SELFPAY ==
[2020-10-01 09:47] VITALS: BMI 23.6
[2020-10-09 12:16] LABS: Absolute Lymphocyte Count 1.65 X10^3/uL (0.83-4.51); Absolute Neutrophil Count 3.1 X10^3/uL (2.0-7.7); Basophil# 0.04 X10^3/uL; Basophil% 0.7 % (0-1); Eosinophil# 0.26 X10^3/uL; Eosinophils% 4.6 % (0-5); Hemoglobin 11.7 g/dL (12.0-15.0); Lymphocyte # 1.65 X10^3/ul (0.83-4.51); Lymphocyte % 29.4 % (19-41); Mean Corp Hgb Conc 32.5 g/dL (32-36); Mean Corpuscular Hgb 29.3 pg (27.0-32.0); Mean Corpuscular Volume 90.2 fL (81-99); Mean Platelet Vol. 10.9 fl (6.2-12.0); Monocyte# 0.59 X10^3/uL; Monocyte% 10.5 % (0-10); NRBC Flagged by Analyzer 0 % (0-5); Neutrophil # 3.06 X10^3/uL (2.7-7.7); Neutrophil % 54.4 % (47-70); Platelet Count 146 K/mm3 (150-450); RBC Distribution Width CV 14.7 % (11.6-14.6); RBC Distribution Width SD 49.1 fl (35.1-43.9); Red Blood Count 3.99 M/mm3 (4.2-5.4); White Blood Count 5.6 K/mm3 (4.4-11.0)
[2020-10-09 12:55] LABS: ALB/GLOB Ratio 0.9 RATIO (0.9-2.4); AST(SGOT) 37 U/L (15-37); Alanine Aminotransfer ALT/SGPT 25 U/L (13-56); Alkaline Phosphatase 107 U/L (45-117); Anion Gap 7 (5-15); BUN 26 mg/dL (7-18); BUN/Creat Ratio 14.9 RATIO (10-20); Calcium,Total 8.2 mg/dL (8.5-10.1); Chloride 107 mmol/L (98-107); Cholesterol 135 mg/dL (200); Creatinine, Serum 1.74 mg/dL (0.55-1.02); EST Glomerular Filtration Rate 32 mL/min (>60); Est Glom Filt Rate - Afr Amer 39 mL/min (>60); Globulin 3.4 g/dL (2.2-4.2); Glucose 68 mg/dL (74-106); High Density Lipoprotein 32 mg/dL; Potassium 3.9 mmol/L (3.5-5.1); Protein, Total 6.4 g/dL (6.4-8.2); Sodium Level 140 mmol/L (136-145); Thyroid Stim Hormone (TSH) 1.86 uIU/mL (0.358-3.74); Triglycerides 81 mg/dL; Very Low Density Lipoprotein 16 mg/dL (5-40)
== END ==
PROVIDERS: PCP Family Medicine Geriatric Medicine; Visit Provider Family Medicine Geriatric Medicine
DX: E78.5 Hyperlipidemia, unspecified (principal); R53.83 Other fatigue
CPT/HCPCS: 36415; 80053; 80061; 84443; 85025

== ENCOUNTER → 2020-10-15 08:30 | Outpatient (CLI) | payer MEDICARE, SELFPAY ==
[2020-10-01 09:47] VITALS: BMI 23.6
--- NOTE | 2020-10-15 08:31 | US_ITS ---
PROCEDURE: Ultrasound guided paracentesis. DATE OF EXAMINATION: 10/15/2020. INDICATION: Female, 60 years old. Ascites. PHYSICIAN: Hernandez Eli M.D. TECHNIQUE: The risks, benefits, and alternatives to the procedure were explained to the patient. The specific risks of bleeding, infection, and damage to bowel were detailed and accepted. Witnessed informed consent was obtained. The abdomen was ultrasonographically surveyed. An appropriate pocket of fluid was identified at the right lower quadrant. The skin were cleaned and prepped in the usual sterile fashion. Using ultrasound guidance, the peritoneal cavity was accessed with a 5-Citizen Of [place] paracentesis needle/catheter system. The trocar was removed. A total of 2150 ml of brad-colored fluid were removed from the peritoneal cavity. The catheter was removed and a sterile dressing was applied. The procedure was well tolerated. US/Paracentesis with US IMPRESSION: Ultrasound guided paracentesis. Electronically Signed: Hernandez Eli MD at 9:42 EDT , Service support ,
[2020-10-15 09:15] VITALS: BP 126/75; BP 133/76; BP 144/70; PULSE 55; PULSE 59; PULSE 65; RESP 16; TEMP 36.7; O2SAT 100; O2SAT 98
== END ==
PROVIDERS: PCP Family Medicine Geriatric Medicine; Referring Provider Internal Medicine Gastroenterology; Visit Provider Internal Medicine Gastroenterology
DX: K74.60 Unspecified cirrhosis of liver (principal); R18.8 Other ascites
CPT/HCPCS: 49083

== ENCOUNTER → 2020-10-24 17:00 | Outpatient (CLI) | payer MEDICARE, SELFPAY ==
[2020-10-24 11:42] VITALS: BMI 23.6
[2020-10-29 13:27] LABS: HPV APTIMA, High Risk Negative (Negative)
== END ==
PROVIDERS: PCP Family Medicine Geriatric Medicine; Referring Provider Obstetrics & Gynecology; Visit Provider Obstetrics & Gynecology
DX: Z12.4 Encounter for screening for malignant neoplasm of cervix (principal)
CPT/HCPCS: 87624; 88175; G0145

== ENCOUNTER → 2020-10-29 08:20 | Outpatient (CLI) | payer MEDICARE, SELFPAY ==
[2020-10-24 11:42] VITALS: BMI 23.6
--- NOTE | 2020-10-29 08:22 | US_ITS ---
PROCEDURE: Ultrasound guided paracentesis. DATE OF EXAMINATION: 10/29/2020. INDICATION: Female, 60 years old. Ascites. PHYSICIAN: Hernandez Eli M.D. TECHNIQUE: The risks, benefits, and alternatives to the procedure were explained to the patient. The specific risks of bleeding, infection, and damage to bowel were detailed and accepted. Witnessed informed consent was obtained. The abdomen was ultrasonographically surveyed. An appropriate pocket of fluid was identified at the right lower quadrant. The skin were cleaned and prepped in the usual sterile fashion. Using ultrasound guidance, the peritoneal cavity was accessed with a 5-Mongolian paracentesis needle/catheter system. The trocar was removed. A total of 4900 ml of brad-colored fluid were removed from the peritoneal cavity. The catheter was removed and a sterile dressing was applied. The procedure was well tolerated. US/Paracentesis with US IMPRESSION: Ultrasound guided paracentesis. Electronically Signed: Hernandez Eli MD at 9:31 EDT , Service support ,
[2020-10-29 08:31] VITALS: BP 107/64; BP 120/75; BP 129/74; BP 137/65; PULSE 58; PULSE 60; PULSE 62; PULSE 64; RESP 16; RESP 18; TEMP 36.7; O2SAT 97; O2SAT 98; O2SAT 99
[2020-10-29 09:33] VITALS: BP 94/64; PULSE 58; RESP 16; TEMP 36.4; O2SAT 94; BMI 23.6
[2020-10-29] MEDS: Albumin Human 25% (100 mL) 25 GM/100 ML BAG IV ×2 (09:46→11:17)
[2020-10-29 13:13] VITALS: BP 107/56; PULSE 61; RESP 16; TEMP 36.6; O2SAT 98
== END ==
LOC: US 08:21 → MEDOUTP 09:22
PROVIDERS: PCP Family Medicine Geriatric Medicine; Referring Provider Internal Medicine Gastroenterology; Visit Provider Internal Medicine Gastroenterology
DX: K74.60 Unspecified cirrhosis of liver (principal); R18.8 Other ascites
CPT/HCPCS: 96365; 96366 ×3; 49083; P9047

== ENCOUNTER → 2020-11-11 12:11 | Outpatient (CLI) | payer MEDICARE, SELFPAY ==
[2020-10-24 11:42] VITALS: BMI 23.6
[2020-11-11 12:55] LABS: Anion Gap 9 (5-15); BUN 13 mg/dL (7-18); BUN/Creat Ratio 9.8 RATIO (10-20); Calcium,Total 7.8 mg/dL (8.5-10.1); Chloride 109 mmol/L (98-107); Creatinine, Serum 1.32 mg/dL (0.55-1.02); EST Glomerular Filtration Rate 44 mL/min (>60); Est Glom Filt Rate - Afr Amer 53 mL/min (>60); Glucose 74 mg/dL (74-106); Potassium 4.2 mmol/L (3.5-5.1); Sodium Level 142 mmol/L (136-145)
== END ==
PROVIDERS: PCP Family Medicine Geriatric Medicine; Referring Provider Internal Medicine Nephrology; Visit Provider Internal Medicine Nephrology
DX: N18.4 Chronic kidney disease, stage 4 (severe) (principal)
CPT/HCPCS: 36415; 80048

== ENCOUNTER → 2020-11-12 09:04 | Outpatient (CLI) | payer MEDICARE, SELFPAY ==
[2020-10-29 09:33] VITALS: BMI 23.6
--- NOTE | 2020-11-12 09:05 | US_ITS ---
PROCEDURE: Ultrasound guided paracentesis. DATE OF EXAMINATION: 11/12/2020. INDICATION: Female, 60 years old. Ascites. PHYSICIAN: Hernandez Eli M.D. TECHNIQUE: The risks, benefits, and alternatives to the procedure were explained to the patient. The specific risks of bleeding, infection, and damage to bowel were detailed and accepted. Witnessed informed consent was obtained. The abdomen was ultrasonographically surveyed. An appropriate pocket of fluid was identified at the right lower quadrant. The skin were cleaned and prepped in the usual sterile fashion. Using ultrasound guidance, the peritoneal cavity was accessed with a 5-Turkmen paracentesis needle/catheter system. The trocar was removed. A total of 7300 ml of brad-colored fluid were removed from the peritoneal cavity. The catheter was removed and a sterile dressing was applied. The procedure was well tolerated. US/Paracentesis with US IMPRESSION: Ultrasound guided paracentesis. Electronically Signed: Hernandez Eli MD at 10:41 EDT , Service support ,
[2020-11-12 09:23] VITALS: BP 121/57; BP 125/65; BP 150/72; PULSE 56; PULSE 59; RESP 16; TEMP 36.6; O2SAT 97; O2SAT 98
[2020-11-12 10:15] VITALS: BP 115/58; PULSE 59; RESP 16; TEMP 36.2; O2SAT 99
[2020-11-12] MEDS: 0.9% NaCl Peripheral Flush Adult/Peds IV (10:21)
[2020-11-12] MEDS: Albumin Human 25% (100 mL) 25 GM/100 ML BAG IV ×2 (10:22→11:47)
== END ==
PROVIDERS: PCP Family Medicine Geriatric Medicine; Referring Provider Internal Medicine Gastroenterology; Visit Provider Internal Medicine Gastroenterology
DX: R18.8 Other ascites (principal); K74.60 Unspecified cirrhosis of liver; N18.4 Chronic kidney disease, stage 4 (severe)
CPT/HCPCS: 96365; 96366; 49083; J7050; P9047

== ENCOUNTER → 2020-11-20 13:04 | Outpatient (CLI) | payer MEDICARE, SELFPAY ==
[2020-10-01 09:47] VITALS: BMI 23.6
[2020-10-29 09:33] VITALS: BMI 23.6
[2020-11-20 17:32] LABS: Absolute Lymphocyte Count 1.17 X10^3/uL (0.83-4.51); Absolute Neutrophil Count 2.6 X10^3/uL (2.0-7.7); Basophil# 0.04 X10^3/uL; Basophil% 0.9 % (0-1); Eosinophil# 0.19 X10^3/uL; Eosinophils% 4.3 % (0-5); Hematocrit 37.5 % (37-47); Hemoglobin 12.3 g/dL (12.0-15.0); Lymphocyte # 1.17 X10^3/ul (0.83-4.51); Lymphocyte % 26.4 % (19-41); Mean Corp Hgb Conc 32.8 g/dL (32-36); Mean Corpuscular Hgb 29.4 pg (27.0-32.0); Mean Corpuscular Volume 89.7 fL (81-99); Mean Platelet Vol. 10.9 fl (6.2-12.0); Monocyte# 0.39 X10^3/uL; Monocyte% 8.8 % (0-10); NRBC Flagged by Analyzer 0 % (0-5); Neutrophil # 2.64 X10^3/uL (2.7-7.7); Neutrophil % 59.4 % (47-70); Platelet Count 156 K/mm3 (150-450); RBC Distribution Width CV 14.6 % (11.6-14.6); RBC Distribution Width SD 48.2 fl (35.1-43.9); Red Blood Count 4.18 M/mm3 (4.2-5.4); White Blood Count 4.4 K/mm3 (4.4-11.0)
[2020-11-20 17:40] LABS: International Normalized Ratio 1.4; Prothrombin Time (Protime)PT. 16.2 SECONDS (11.7-14.9)
[2020-11-20 18:21] LABS: AST(SGOT) 39 U/L (15-37); Alanine Aminotransfer ALT/SGPT 23 U/L (13-56); Albumin, Serum 3.3 g/dL (3.2-5.0); Alkaline Phosphatase 109 U/L (45-117); Bilirubin, Direct 0.24 mg/dL (0.00-0.30); Globulin 3.7 g/dL (2.2-4.2)
[2020-11-22 07:58] LABS: AFP, Tumor Marker 2.3 ng/mL (0.0-8.3)
== END ==
PROVIDERS: PCP Family Medicine Geriatric Medicine; Referring Provider Internal Medicine Gastroenterology; Visit Provider Internal Medicine Gastroenterology
DX: D64.9 Anemia, unspecified (principal); R11.0 Nausea; K74.60 Unspecified cirrhosis of liver; R18.8 Other ascites
CPT/HCPCS: 36415; 80076; 82105; 85025; 85610

== ENCOUNTER → 2020-12-03 10:14 | Outpatient (CLI) | payer MEDICARE, SELFPAY ==
[2020-10-24 11:42] VITALS: BMI 23.6
[2020-10-29 09:33] VITALS: BMI 23.6
--- NOTE | 2020-12-03 10:17 | US_ITS ---
PROCEDURE: Ultrasound guided paracentesis. DATE OF EXAMINATION: 12/03/2020.. INDICATION: Female, 60 years old. Ascites. PHYSICIAN: Hernandez Eli M.D. TECHNIQUE: The risks, benefits, and alternatives to the procedure were explained to the patient. The specific risks of bleeding, infection, and damage to bowel were detailed and accepted. Witnessed informed consent was obtained. The abdomen was ultrasonographically surveyed. An appropriate pocket of fluid was identified at the left lower quadrant. The skin were cleaned and prepped in the usual sterile fashion. Using ultrasound guidance, the peritoneal cavity was accessed with a 5-Argentine paracentesis needle/catheter system. The trocar was removed. A total of 5900 ml of brad-colored fluid were removed from the peritoneal cavity. The catheter was removed and a sterile dressing was applied. The procedure was well tolerated. US/Paracentesis with US IMPRESSION: Ultrasound guided paracentesis. Electronically Signed: Hernandez Eli MD at 12:32 EDT , Service support ,
[2020-12-03 10:50] VITALS: BP 115/55; BP 118/62; BP 146/70; PULSE 56; PULSE 64; PULSE 98; RESP 16; RESP 17; O2SAT 97; O2SAT 98
[2020-12-03] MEDS: Lidocaine 2% (20 ml mdv) 20 ML Vial (10:55)
[2020-12-03 11:56] VITALS: BP 99/56; PULSE 56; RESP 16; TEMP 36.4; O2SAT 97; BMI 23.6
[2020-12-03] MEDS: Albumin Human 25% (100 mL) 25 GM/100 ML BAG IV ×2 (11:58→13:32)
[2020-12-03] MEDS: 0.9% NaCl Peripheral Flush Adult/Peds IV (12:02)
[2020-12-03 15:20] VITALS: BP 113/56; PULSE 67; RESP 16; TEMP 36.4
== END ==
LOC: US 10:14 → MEDOUTP 11:36
PROVIDERS: PCP Family Medicine Geriatric Medicine; Referring Provider Internal Medicine Gastroenterology; Visit Provider Internal Medicine Gastroenterology
DX: K74.60 Unspecified cirrhosis of liver (principal); R18.8 Other ascites
CPT/HCPCS: 96365; 96366 ×2; 49083; P9047; A4216

== ENCOUNTER 2020-12-16 10:15 | Outpatient (RCR) | payer MEDICARE, SELFPAY ==
[2020-12-03 11:56] VITALS: BMI 23.6
[2020-12-16 11:39] LABS: Absolute Lymphocyte Count 0.84 X10^3/uL (0.83-4.51); Absolute Neutrophil Count 2.2 X10^3/uL (2.0-7.7); Basophil# 0.02 X10^3/uL; Basophil% 0.6 % (0-1); Eosinophils% 5.6 % (0-5); Hematocrit 35.8 % (37-47); Hemoglobin 11.4 g/dL (12.0-15.0); Lymphocyte # 0.84 X10^3/ul (0.83-4.51); Lymphocyte % 23.5 % (19-41); Mean Corp Hgb Conc 31.8 g/dL (32-36); Mean Corpuscular Hgb 29.5 pg (27.0-32.0); Mean Corpuscular Volume 92.7 fL (81-99); Mean Platelet Vol. 10.6 fl (6.2-12.0); Monocyte# 0.35 X10^3/uL; Monocyte% 9.8 % (0-10); NRBC Flagged by Analyzer 0 % (0-5); Neutrophil # 2.16 X10^3/uL (2.7-7.7); Neutrophil % 60.2 % (47-70); Platelet Count 128 K/mm3 (150-450); RBC Distribution Width CV 15.4 % (11.6-14.6); RBC Distribution Width SD 52.9 fl (35.1-43.9); Red Blood Count 3.86 M/mm3 (4.2-5.4); White Blood Count 3.6 K/mm3 (4.4-11.0)
[2020-12-16 12:09] LABS: ALB/GLOB Ratio 0.8 RATIO (0.9-2.4); AST(SGOT) 34 U/L (15-37); Alanine Aminotransfer ALT/SGPT 25 U/L (13-56); Alkaline Phosphatase 109 U/L (45-117); Anion Gap 3 (5-15); BUN 15 mg/dL (7-18); BUN/Creat Ratio 10.2 RATIO (10-20); Calcium,Total 8.3 mg/dL (8.5-10.1); Chloride 112 mmol/L (98-107); Creatinine, Serum 1.47 mg/dL (0.55-1.02); EST Glomerular Filtration Rate 39 mL/min (>60); Est Glom Filt Rate - Afr Amer 47 mL/min (>60); Globulin 3.6 g/dL (2.2-4.2); Glucose 65 mg/dL (74-106); Potassium 4.6 mmol/L (3.5-5.1); Protein, Total 6.6 g/dL (6.4-8.2); Sodium Level 140 mmol/L (136-145)
== END 2020-12-16 18:00 | disposition home or self-care (01) ==
LOC: LAB 10:15
PROVIDERS: PCP Family Medicine Geriatric Medicine; Visit Provider Internal Medicine Gastroenterology
DX: D64.9 Anemia, unspecified (principal); K82.4 Cholesterolosis of gallbladder; R19.04 Left lower quadrant abdominal swelling, mass and lump; K70.31 Alcoholic cirrhosis of liver with ascites; K46.9 Unspecified abdominal hernia without obstruction or gangrene
CPT/HCPCS: 36415; 80053; 85025

== ENCOUNTER → 2020-12-18 13:14 | Outpatient (CLI) | payer MEDICARE, SELFPAY ==
[2020-12-03 11:56] VITALS: BMI 23.6
--- NOTE | 2020-12-18 13:16 | CT_ITS ---
STUDY: LOW DOSE CT LUNG CANCER SCREENING REASON FOR EXAM: Female, 60 years old. Tobacco Dependency, Lung Nodule RADIATION DOSAGE (If Supplied By Facility): CTDIvol = ( 2.01 ) mGy, DLP = ( 59.67 ) mGycm TECHNIQUE: No contrast was administered. Low dose technique was utilized (average mAS-38 and kVp 120). 1.25 mm axial source images with a slice interval of 1.25-mm were reconstructed in lung windows. 2.5 mm axial source images with a slice interval of 2.5-mm were reconstructed in lung windows. 5.0 mm axial source images with a slice interval of 5.0-mm were reconstructed in soft tissue windows. Nodule measured using lung windows on PACS and/or independent workstation with automated measurement of minimum and maximum diameter. Nodule measurement reported as average diameter rounded to the nearest whole number. Growth is defined as an increase ins size of greater than 1.5 mm. COMPARISON: 11/21/2019 NODULES: Total lung nodules (excluding granulomas): 0 Emphysema: Not present. Minimal fibrotic bands of the right more than left lower lobe. Within the posterior right lower lobe fibrotic bands, minimal nodular thickening with average diameter of 4 x 6 mm, smaller since prior study. Endobronchial lesion: None Aorta: Moderate atherosclerosis of the abdominal aorta. Coronary arteries: Mild coronary artery atherosclerosis Heart: No pericardial effusion or significant cardiomegaly. Pulmonary artery: Unremarkable unopacified technique. Mediastinal nodes: No adenopathy Other chest and abdominal findings: Upper abdominal ascites. CT/Low Dose CT Lung Screening IMPRESSION: 1. Lung-RADS category 2 - mildly smaller reticulonodular density in the right lung base. Continue annual screening with LDCT in 12 months. 2. Upper abdominal ascites IMPORTANT NOTES FOR USE: ACR Lung-RADS Version 1.1 Assessment Categories Release Date: 2018 Category: Coded 0-4 bases on nodule(s) with highest degree of suspicion. Negative screen is defined as categories 1 and 2; a positive screen is defined as categories 3 and 4. Category 3 and 4A nodules that are unchanged on interval CT should be coded as category 2, and individuals returned to screening in 12 months. Category 4X: Category 3 or 4 nodules with additional imaging findings that increase the suspicion of lung cancer, such as spiculation, GGN that doubles in size in 1 year, enlarged lymph notes, etc. Category Modifiers: S (significant finding unrelated to lung cancer) Electronically Signed: Sammy Solano MD (Brooks) at 9:25 EDT , Service support ,
== END ==
PROVIDERS: PCP Family Medicine Geriatric Medicine; Referring Provider Internal Medicine Critical Care Medicine; Visit Provider Internal Medicine Critical Care Medicine
DX: Z12.2 Encounter for screening for malignant neoplasm of respiratory organs (principal); R91.1 Solitary pulmonary nodule; F17.210 Nicotine dependence, cigarettes, uncomplicated
CPT/HCPCS: 71271

== ENCOUNTER → 2020-12-25 08:22 | Outpatient (CLI) | payer MEDICARE, SELFPAY ==
[2020-10-24 11:42] VITALS: BMI 23.6
[2020-12-03 11:56] VITALS: BMI 23.6
--- NOTE | 2020-12-25 08:25 | US_ITS ---
PROCEDURE: Ultrasound guided paracentesis. DATE OF EXAMINATION: 12/25/2020.. INDICATION: Female, 60 years old. Ascites. PHYSICIAN: Hernandez Eli M.D. TECHNIQUE: The risks, benefits, and alternatives to the procedure were explained to the patient. The specific risks of bleeding, infection, and damage to bowel were detailed and accepted. Witnessed informed consent was obtained. The abdomen was ultrasonographically surveyed. An appropriate pocket of fluid was identified at the right lower quadrant. The skin were cleaned and prepped in the usual sterile fashion. Using ultrasound guidance, the peritoneal cavity was accessed with a 5-Luxembourgish paracentesis needle/catheter system. The trocar was removed. A total of 7850 ml of brad-colored fluid were removed from the peritoneal cavity. The catheter was removed and a sterile dressing was applied. The procedure was well tolerated. US/Paracentesis with US IMPRESSION: Ultrasound guided paracentesis. Electronically Signed: Hernandez Eli MD at 10:05 EDT , Service support ,
[2020-12-25] MEDS: Lidocaine 2% (20 ml mdv) 20 ML Vial 8 ML INFILT (08:45)
[2020-12-25 08:47] VITALS: BP 110/60; BP 117/63; BP 125/62; PULSE 59; PULSE 60; PULSE 61; RESP 12; RESP 14; RESP 16; TEMP 36.9; O2SAT 97; O2SAT 98
[2020-12-25] MEDS: 0.9% Saline Lock 10 ML Syringe IV (09:31)
[2020-12-25 09:36] VITALS: BP 139/95; PULSE 69; RESP 18; TEMP 36.9; O2SAT 100; BMI 23.6
[2020-12-25] MEDS: Albumin Human 25% (100 mL) 25 GM/100 ML BAG IV ×2 (09:41→11:09)
[2020-12-25 13:05] VITALS: BP 115/47; PULSE 73; RESP 16; TEMP 37.1; O2SAT 99
== END ==
LOC: US 08:22 → MEDOUTP 09:30
PROVIDERS: PCP Family Medicine Geriatric Medicine; Referring Provider Internal Medicine Gastroenterology; Visit Provider Internal Medicine Gastroenterology
DX: K74.60 Unspecified cirrhosis of liver (principal); R18.8 Other ascites
CPT/HCPCS: 96365; 96366 ×2; 49083; P9047; A4216

== ENCOUNTER → 2021-01-07 08:33 | Outpatient (CLI) | payer MEDICARE, SELFPAY ==
[2020-10-24 11:42] VITALS: BMI 23.6
--- NOTE | 2021-01-07 08:37 | US_ITS ---
PROCEDURE: Ultrasound guided paracentesis. DATE OF EXAMINATION: 01/07/2021. INDICATION: Female, 60 years old. Ascites. PHYSICIAN: Hernandez Eli M.D. TECHNIQUE: The risks, benefits, and alternatives to the procedure were explained to the patient. The specific risks of bleeding, infection, and damage to bowel were detailed and accepted. Witnessed informed consent was obtained. The abdomen was ultrasonographically surveyed. An appropriate pocket of fluid was identified at the right lower quadrant. The skin were cleaned and prepped in the usual sterile fashion. Using ultrasound guidance, the peritoneal cavity was accessed with a 5-Gibraltarian paracentesis needle/catheter system. The trocar was removed. A total of 4950 ml of brad-colored fluid were removed from the peritoneal cavity. The catheter was removed and a sterile dressing was applied. The procedure was well tolerated. US/Paracentesis with US IMPRESSION: Ultrasound guided paracentesis. Electronically Signed: Hernandez Eli MD at 9:32 EDT , Service support ,
[2021-01-07 08:46] VITALS: BP 111/61; BP 113/70; BP 119/69; PULSE 52; PULSE 55; PULSE 59; RESP 16; TEMP 36.7; O2SAT 97; O2SAT 98
[2021-01-07] MEDS: Lidocaine 2% (20 ml mdv) 20 ML Vial INFILT (08:46)
[2021-01-07 09:43] VITALS: BP 99/63; PULSE 55; RESP 16; TEMP 36.7; O2SAT 98
[2021-01-07] MEDS: Albumin Human 25% (100 mL) 25 GM/100 ML BAG IV ×2 (09:45→11:09)
[2021-01-07 13:07] VITALS: BP 103/53; PULSE 69; RESP 16; TEMP 36.1; O2SAT 98
== END ==
LOC: US 08:34 → MEDOUTP 09:26
PROVIDERS: PCP Family Medicine Geriatric Medicine; Referring Provider Internal Medicine Gastroenterology; Visit Provider Internal Medicine Gastroenterology
DX: K74.60 Unspecified cirrhosis of liver (principal); R18.8 Other ascites; E55.9 Vitamin D deficiency, unspecified; E78.5 Hyperlipidemia, unspecified; R53.83 Other fatigue
CPT/HCPCS: 96365; 96366 ×2; 36415; 49083; 80053; 80061; 82306; 84443; 85025; P9047

== ENCOUNTER → 2021-01-07 14:48 | Outpatient (CLI) | payer MEDICARE, SELFPAY ==
[2021-01-07 17:24] LABS: Absolute Lymphocyte Count 0.99 X10^3/uL (0.83-4.51); Absolute Neutrophil Count 1.4 X10^3/uL (2.0-7.7); Basophil# 0.02 X10^3/uL; Basophil% 0.7 % (0-1); Eosinophil# 0.12 X10^3/uL; Eosinophils% 4.3 % (0-5); Hematocrit 29.2 % (37-47); Hemoglobin 9.5 g/dL (12.0-15.0); Lymphocyte # 0.99 X10^3/ul (0.83-4.51); Lymphocyte % 35.6 % (19-41); Mean Corp Hgb Conc 32.5 g/dL (32-36); Mean Corpuscular Hgb 29.5 pg (27.0-32.0); Mean Corpuscular Volume 90.7 fL (81-99); Mean Platelet Vol. 11.1 fl (6.2-12.0); Monocyte# 0.28 X10^3/uL; Monocyte% 10.1 % (0-10); NRBC Flagged by Analyzer 0 % (0-5); Neutrophil # 1.37 X10^3/uL (2.7-7.7); Neutrophil % 49.3 % (47-70); Platelet Count 108 K/mm3 (150-450); RBC Distribution Width CV 15.6 % (11.6-14.6); RBC Distribution Width SD 51.5 fl (35.1-43.9); Red Blood Count 3.22 M/mm3 (4.2-5.4); White Blood Count 2.8 K/mm3 (4.4-11.0)
[2021-01-07 17:35] LABS: Vitamin D,25 Hydroxy 37.8 ng/mL
[2021-01-07 17:44] LABS: ALB/GLOB Ratio 1.4 RATIO (0.9-2.4); AST(SGOT) 40 U/L (15-37); Alanine Aminotransfer ALT/SGPT 30 U/L (13-56); Albumin, Serum 3.6 g/dL (3.2-5.0); Alkaline Phosphatase 84 U/L (45-117); Anion Gap 6 (5-15); BUN 21 mg/dL (7-18); BUN/Creat Ratio 11.2 RATIO (10-20); Calcium,Total 7.6 mg/dL (8.5-10.1); Chloride 108 mmol/L (98-107); Cholesterol 108 mg/dL (200); Creatinine, Serum 1.88 mg/dL (0.55-1.02); EST Glomerular Filtration Rate 29 mL/min (>60); Est Glom Filt Rate - Afr Amer 35 mL/min (>60); Globulin 2.6 g/dL (2.2-4.2); Glucose 45 mg/dL (74-106); High Density Lipoprotein 29 mg/dL; Potassium 3.7 mmol/L (3.5-5.1); Protein, Total 6.2 g/dL (6.4-8.2); Sodium Level 138 mmol/L (136-145); Thyroid Stim Hormone (TSH) 2.15 uIU/mL (0.358-3.74); Triglycerides 63 mg/dL; Very Low Density Lipoprotein 13 mg/dL (5-40)
== END ==
PROVIDERS: PCP Family Medicine Geriatric Medicine; Visit Provider Family Medicine Geriatric Medicine
DX: E55.9 Vitamin D deficiency, unspecified (principal); E78.5 Hyperlipidemia, unspecified; R53.83 Other fatigue
CPT/HCPCS: 36415; 80053; 80061; 82306; 84443; 85025

== ENCOUNTER → 2021-01-22 08:52 | Outpatient (CLI) | payer MEDICARE, SELFPAY ==
[2020-12-03 11:56] VITALS: BMI 23.6
--- NOTE | 2021-01-22 08:57 | US_ITS ---
PROCEDURE: Ultrasound guided paracentesis. DATE OF EXAMINATION: 01/22/2021.. INDICATION: Ascites. PHYSICIAN: Hernandez Eli M.D. TECHNIQUE: The risks, benefits, and alternatives to the procedure were explained to the patient. The specific risks of bleeding, infection, and damage to bowel were detailed and accepted. Witnessed informed consent was obtained. The abdomen was ultrasonographically surveyed. An appropriate pocket of fluid was identified at the right/left lower quadrant. The skin were cleaned and prepped in the usual sterile fashion. Using ultrasound guidance, the peritoneal cavity was accessed with a 5-Slovenian paracentesis needle/catheter system. The trocar was removed. A total of 6300 ml of brad-colored fluid were removed from the peritoneal cavity. The catheter was removed and a sterile dressing was applied. The procedure was well tolerated. US/Paracentesis with US IMPRESSION: Ultrasound guided paracentesis. Electronically Signed: Hernandez Eli MD at 11:23 EDT , Service support ,
[2021-01-22 09:15] VITALS: BP 106/58; BP 115/58; BP 116/53; PULSE 53; PULSE 56; PULSE 57; RESP 16; TEMP 36.7; O2SAT 98
[2021-01-22] MEDS: Lidocaine 2% (20 ml mdv) 20 ML Vial 10 ML INFILT (09:15)
[2021-01-22 10:09] VITALS: BP 118/62; PULSE 62; RESP 16; TEMP 36.2; O2SAT 98
[2021-01-22] MEDS: Albumin Human 25% (100 mL) 25 GM/100 ML BAG IV ×2 (10:09→11:39)
[2021-01-22 13:33] VITALS: BP 92/41; PULSE 66; RESP 16; O2SAT 97
== END | disposition home or self-care (01) ==
LOC: US 08:54 → MEDOUTP 09:59
PROVIDERS: PCP Family Medicine Geriatric Medicine; Referring Provider Internal Medicine Gastroenterology; Visit Provider Internal Medicine Gastroenterology
DX: K74.60 Unspecified cirrhosis of liver (principal); R18.8 Other ascites
CPT/HCPCS: 96365; 96366 ×2; 49083; P9047

== ENCOUNTER → 2021-02-04 09:00 | Outpatient (CLI) | payer MEDICARE, SELFPAY ==
[2020-12-03 11:56] VITALS: BMI 23.6
--- NOTE | 2021-02-04 09:02 | US_ITS ---
PROCEDURE: Ultrasound guided paracentesis. DATE OF EXAMINATION: 02/04/2021. INDICATION: Female, 60 years old. Ascites. PHYSICIAN: Hernandez Eli M.D. TECHNIQUE: The risks, benefits, and alternatives to the procedure were explained to the patient. The specific risks of bleeding, infection, and damage to bowel were detailed and accepted. Witnessed informed consent was obtained. The abdomen was ultrasonographically surveyed. An appropriate pocket of fluid was identified at the right lower quadrant. The skin were cleaned and prepped in the usual sterile fashion. Using ultrasound guidance, the peritoneal cavity was accessed with a 5-Northern Irish paracentesis needle/catheter system. The trocar was removed. A total of 5100 ml of brad-colored fluid were removed from the peritoneal cavity. The catheter was removed and a sterile dressing was applied. The procedure was well tolerated. US/Paracentesis with US IMPRESSION: Ultrasound guided paracentesis. Electronically Signed: Hernandez Eli MD at 10:29 EDT , Service support ,
[2021-02-04] MEDS: Lidocaine 2% (20 ml mdv) 20 ML Vial INFILT (09:05)
[2021-02-04 10:11] VITALS: BP 118/56; PULSE 56; RESP 16; TEMP 36.2; O2SAT 100
[2021-02-04 10:12] VITALS: BP 122/69; BP 127/60; BP 131/77; PULSE 55; PULSE 59; PULSE 60; RESP 16; TEMP 36.6; O2SAT 98; O2SAT 99
[2021-02-04] MEDS: Albumin Human 25% (100 mL) 25 GM/100 ML BAG IV ×2 (10:30→11:55)
[2021-02-04 13:50] VITALS: BP 99/56; PULSE 67; RESP 16; TEMP 36.4
== END | disposition home or self-care (01) ==
LOC: US 09:00 → MEDOUTP 10:05
PROVIDERS: PCP Family Medicine Geriatric Medicine; Referring Provider Internal Medicine Gastroenterology; Visit Provider Internal Medicine Gastroenterology
DX: K74.60 Unspecified cirrhosis of liver (principal); R18.8 Other ascites
CPT/HCPCS: 96365; 96366 ×2; 49083; P9047; A4216

== ENCOUNTER 2021-02-12 09:19 | Outpatient (RCR) | payer MEDICARE, SELFPAY ==
[2021-01-15 00:20] VITALS: BMI 23.6
[2021-01-21 14:35] LABS: Absolute Neutrophil Count 2.1 X10^3/uL (2.0-7.7); Basophil# 0.02 X10^3/uL; Basophil% 0.6 % (0-1); Eosinophil# 0.12 X10^3/uL; Eosinophils% 3.6 % (0-5); Hematocrit 35.4 % (37-47); Hemoglobin 11.5 g/dL (12.0-15.0); Lymphocyte % 26.8 % (19-41); Mean Corp Hgb Conc 32.5 g/dL (32-36); Mean Corpuscular Hgb 29.9 pg (27.0-32.0); Mean Corpuscular Volume 91.9 fL (81-99); Mean Platelet Vol. 10.7 fl (6.2-12.0); Monocyte# 0.22 X10^3/uL; Monocyte% 6.5 % (0-10); NRBC Flagged by Analyzer 0 % (0-5); Neutrophil # 2.09 X10^3/uL (2.7-7.7); Neutrophil % 62.2 % (47-70); Platelet Count 118 K/mm3 (150-450); RBC Distribution Width CV 15.8 % (11.6-14.6); RBC Distribution Width SD 53.4 fl (35.1-43.9); Red Blood Count 3.85 M/mm3 (4.2-5.4); White Blood Count 3.4 K/mm3 (4.4-11.0)
[2021-01-21 15:01] LABS: ALB/GLOB Ratio 0.7 RATIO (0.9-2.4); AST(SGOT) 31 U/L (15-37); Alanine Aminotransfer ALT/SGPT 21 U/L (13-56); Albumin, Serum 2.8 g/dL (3.2-5.0); Alkaline Phosphatase 93 U/L (45-117); Anion Gap 4 (5-15); BUN 23 mg/dL (7-18); BUN/Creat Ratio 11.6 RATIO (10-20); Calcium,Total 8.2 mg/dL (8.5-10.1); Chloride 109 mmol/L (98-107); Creatinine, Serum 1.98 mg/dL (0.55-1.02); EST Glomerular Filtration Rate 27 mL/min (>60); Est Glom Filt Rate - Afr Amer 33 mL/min (>60); Globulin 3.8 g/dL (2.2-4.2); Glucose 131 mg/dL (74-106); Potassium 3.6 mmol/L (3.5-5.1); Protein, Total 6.6 g/dL (6.4-8.2); Sodium Level 139 mmol/L (136-145)
[2021-02-05 15:16] LABS: Anion Gap 4 (5-15); BUN 12 mg/dL (7-18); BUN/Creat Ratio 7.9 RATIO (10-20); Calcium,Total 8.6 mg/dL (8.5-10.1); Chloride 111 mmol/L (98-107); Creatinine, Serum 1.52 mg/dL (0.55-1.02); EST Glomerular Filtration Rate 37 mL/min (>60); Est Glom Filt Rate - Afr Amer 45 mL/min (>60); Glucose 84 mg/dL (74-106); Sodium Level 140 mmol/L (136-145)
[2021-02-12 11:23] LABS: Anion Gap 5 (5-15); BUN 11 mg/dL (7-18); BUN/Creat Ratio 7.4 RATIO (10-20); Calcium,Total 8.3 mg/dL (8.5-10.1); Chloride 112 mmol/L (98-107); Creatinine, Serum 1.49 mg/dL (0.55-1.02); EST Glomerular Filtration Rate 38 mL/min (>60); Est Glom Filt Rate - Afr Amer 46 mL/min (>60); Glucose 84 mg/dL (74-106); Potassium 4.4 mmol/L (3.5-5.1); Sodium Level 142 mmol/L (136-145)
== END 2021-02-12 18:00 | disposition home or self-care (01) ==
LOC: LAB 09:19
PROVIDERS: PCP Family Medicine Geriatric Medicine; Referring Provider Internal Medicine Gastroenterology; Visit Provider Internal Medicine Gastroenterology
DX: D64.9 Anemia, unspecified (principal); K82.4 Cholesterolosis of gallbladder; R19.04 Left lower quadrant abdominal swelling, mass and lump; K70.31 Alcoholic cirrhosis of liver with ascites; K46.9 Unspecified abdominal hernia without obstruction or gangrene
CPT/HCPCS: 36415; 80048; 80053; 85025

== ENCOUNTER → 2021-02-18 11:10 | Outpatient (CLI) | payer MEDICARE, SELFPAY ==
--- NOTE | 2021-02-18 11:23 | US_ITS ---
PROCEDURE: ULTRASOUND GUIDED PARACENTESIS CLINICAL HISTORY: Female, 60 years old female with liver CIRRHOSIS WO RECURRENT ASCITES PHYSICIAN: Ildefonso Monson MD INFORMED CONSENT: The risks, benefits, and alternatives to the procedure were explained to the patient. The specific risks of bleeding, infection, and damage to bowel were detailed and accepted. Witnessed informed consent was obtained. TECHNIQUES: The abdomen was ultrasonographically surveyed. An appropriate pocket of fluid was identified at the left lower quadrant. The skin was cleaned and prepped in the usual sterile fashion. Using ultrasound guidance, the peritoneal cavity was accessed with a 5-Armenian paracentesis needle/catheter system. The trocar was removed. A total of 5050 ml of straw-colored ascitic fluid was removed from the peritoneal cavity. The catheter was removed and a sterile dressing was applied. The procedure was well tolerated. The patient received albumin 50 grams after the procedure. # of Images: 14 US/Paracentesis with US IMPRESSION: Ultrasound guided paracentesis. Electronically Signed: Mg Monson MD at 15:14 EDT Tel , Service support ,
[2021-02-18 11:33] LABS: Absolute Lymphocyte Count 1.08 X10^3/uL (0.83-4.51); Absolute Neutrophil Count 2.5 X10^3/uL (2.0-7.7); Basophil# 0.03 X10^3/uL; Basophil% 0.7 % (0-1); Eosinophil# 0.14 X10^3/uL; Eosinophils% 3.4 % (0-5); Hematocrit 34.4 % (37-47); Hemoglobin 10.9 g/dL (12.0-15.0); Lymphocyte # 1.08 X10^3/ul (0.83-4.51); Lymphocyte % 26.2 % (19-41); Mean Corp Hgb Conc 31.7 g/dL (32-36); Mean Corpuscular Hgb 29.3 pg (27.0-32.0); Mean Corpuscular Volume 92.5 fL (81-99); Mean Platelet Vol. 10.6 fl (6.2-12.0); Monocyte# 0.39 X10^3/uL; Monocyte% 9.4 % (0-10); NRBC Flagged by Analyzer 0 % (0-5); Neutrophil # 2.48 X10^3/uL (2.7-7.7); Neutrophil % 60.1 % (47-70); Platelet Count 118 K/mm3 (150-450); RBC Distribution Width CV 15.7 % (11.6-14.6); RBC Distribution Width SD 53.5 fl (35.1-43.9); Red Blood Count 3.72 M/mm3 (4.2-5.4); White Blood Count 4.1 K/mm3 (4.4-11.0)
[2021-02-18 11:56] LABS: ALB/GLOB Ratio 0.8 RATIO (0.9-2.4); AST(SGOT) 31 U/L (15-37); Alanine Aminotransfer ALT/SGPT 20 U/L (13-56); Albumin, Serum 2.9 g/dL (3.2-5.0); Alkaline Phosphatase 104 U/L (45-117); Anion Gap 8 (5-15); BUN 14 mg/dL (7-18); BUN/Creat Ratio 9.5 RATIO (10-20); Calcium,Total 8.3 mg/dL (8.5-10.1); Chloride 108 mmol/L (98-107); Creatinine, Serum 1.48 mg/dL (0.55-1.02); EST Glomerular Filtration Rate 38 mL/min (>60); Est Glom Filt Rate - Afr Amer 46 mL/min (>60); Globulin 3.6 g/dL (2.2-4.2); Glucose 91 mg/dL (74-106); Potassium 4.3 mmol/L (3.5-5.1); Protein, Total 6.5 g/dL (6.4-8.2); Sodium Level 139 mmol/L (136-145)
[2021-02-18] MEDS: Lidocaine 2% (20 ml mdv) 20 ML Vial INFILT (11:58)
[2021-02-18 12:43] VITALS: BP 121/68; BP 128/60; BP 143/79; BP 147/68; PULSE 57; PULSE 60; PULSE 64; RESP 16; RESP 18; TEMP 36.8; O2SAT 100; O2SAT 97
[2021-02-18 12:45] VITALS: BP 138/72; PULSE 66; RESP 16; TEMP 36.9; O2SAT 98
[2021-02-18] MEDS: Albumin Human 25% (100 mL) 25 GM/100 ML BAG IV ×2 (13:08→14:33)
[2021-02-18 16:23] VITALS: BP 129/76; PULSE 68
== END ==
LOC: US 11:11 → MEDOUTP 12:40
PROVIDERS: PCP Family Medicine Geriatric Medicine; Referring Provider Internal Medicine Gastroenterology; Visit Provider Internal Medicine Gastroenterology
DX: K70.31 Alcoholic cirrhosis of liver with ascites (principal); D64.9 Anemia, unspecified; K82.4 Cholesterolosis of gallbladder; R19.04 Left lower quadrant abdominal swelling, mass and lump; K46.9 Unspecified abdominal hernia without obstruction or gangrene
CPT/HCPCS: 96365; 96366 ×2; 36415; 49083; 80053; 85025; P9047

== ENCOUNTER → 2021-03-05 12:05 | Outpatient (CLI) | payer MEDICARE, SELFPAY ==
[2020-08-20 09:55] VITALS: BMI 23.3
[2021-03-05 13:22] LABS: PTHIN 176.3 pg/mL (18.4-80.1)
[2021-03-05 13:25] LABS: Anion Gap 5 (5-15); BUN 14 mg/dL (7-18); BUN/Creat Ratio 9.2 RATIO (10-20); Calcium,Total 8.1 mg/dL (8.5-10.1); Chloride 109 mmol/L (98-107); Creatinine, Serum 1.52 mg/dL (0.55-1.02); EST Glomerular Filtration Rate 37 mL/min (>60); Est Glom Filt Rate - Afr Amer 45 mL/min (>60); Glucose 96 mg/dL (74-106); Phosphorus 3.5 mg/dL (2.5-4.9); Potassium 4.3 mmol/L (3.5-5.1); Sodium Level 139 mmol/L (136-145)
== END ==
PROVIDERS: PCP Family Medicine Geriatric Medicine; Visit Provider Internal Medicine Nephrology
DX: K70.31 Alcoholic cirrhosis of liver with ascites (principal)
CPT/HCPCS: 36415; 80048; 83970; 84100

== ENCOUNTER → 2021-03-06 09:20 | Outpatient (CLI) | payer MEDICARE, SELFPAY ==
--- NOTE | 2021-03-06 09:23 | US_ITS ---
PROCEDURE: Ultrasound guided paracentesis. DATE OF EXAMINATION: 03/06/2021. INDICATION: Female, 60 years old. Ascites. PHYSICIAN: Hernandez Eli M.D. TECHNIQUE: The risks, benefits, and alternatives to the procedure were explained to the patient. The specific risks of bleeding, infection, and damage to bowel were detailed and accepted. Witnessed informed consent was obtained. The abdomen was ultrasonographically surveyed. An appropriate pocket of fluid was identified at the right lower quadrant. The skin were cleaned and prepped in the usual sterile fashion. Using ultrasound guidance, the peritoneal cavity was accessed with a 5-[place] Islander paracentesis needle/catheter system. The trocar was removed. A total of 7550 ml of brad-colored fluid were removed from the peritoneal cavity. The catheter was removed and a sterile dressing was applied. The procedure was well tolerated. US/Paracentesis with US IMPRESSION: Ultrasound guided paracentesis. Electronically Signed: Hernandez Eli MD at 12:29 EDT , Service support ,
[2021-03-06 09:54] VITALS: BP 120/67; BP 127/67; BP 130/64; PULSE 59; PULSE 61; RESP 16; RESP 18; TEMP 36.9; O2SAT 98; O2SAT 99
[2021-03-06] MEDS: Lidocaine 2% (20 ml mdv) 20 ML Vial INFILT (09:54)
[2021-03-06 10:49] VITALS: BP 141/68; PULSE 63; RESP 16; TEMP 36.6; O2SAT 100; BMI 23.6
[2021-03-06] MEDS: Albumin Human 25% (100 mL) 25 GM/100 ML BAG IV ×2 (10:56→12:25)
[2021-03-06 14:14] VITALS: BP 111/54; PULSE 67; RESP 16; TEMP 36.6; O2SAT 98
== END ==
LOC: US 09:21 → MEDOUTP 10:42
PROVIDERS: PCP Family Medicine Geriatric Medicine; Referring Provider Internal Medicine Gastroenterology; Visit Provider Internal Medicine Gastroenterology
DX: K74.60 Unspecified cirrhosis of liver (principal); R18.8 Other ascites
CPT/HCPCS: 96365; 96366 ×2; 49083; P9047

== ENCOUNTER → 2021-03-25 10:27 | Outpatient (CLI) | payer MEDICARE, SELFPAY ==
--- NOTE | 2021-03-25 10:29 | US_ITS ---
PROCEDURE: Ultrasound guided paracentesis. DATE OF EXAMINATION: 03/25/2021. INDICATION: Female, 60 years old. Ascites. PHYSICIAN: Hernandez Eli M.D. TECHNIQUE: The risks, benefits, and alternatives to the procedure were explained to the patient. The specific risks of bleeding, infection, and damage to bowel were detailed and accepted. Witnessed informed consent was obtained. The abdomen was ultrasonographically surveyed. An appropriate pocket of fluid was identified at the right lower quadrant. The skin were cleaned and prepped in the usual sterile fashion. Using ultrasound guidance, the peritoneal cavity was accessed with a 5-Mongolian paracentesis needle/catheter system. The trocar was removed. A total of 8100 ml of brad-colored fluid were removed from the peritoneal cavity. The catheter was removed and a sterile dressing was applied. The procedure was well tolerated. US/Paracentesis with US IMPRESSION: Ultrasound guided paracentesis. Electronically Signed: Hernandez Eli MD at 12:57 EST , Service support ,
[2021-03-25 10:46] VITALS: BP 122/66; BP 161/66; PULSE 63; PULSE 65; PULSE 68; RESP 16; RESP 18; O2SAT 98
[2021-03-25 11:50] VITALS: BP 109/50; PULSE 71; RESP 16; TEMP 36.6; O2SAT 98; BMI 23.6
[2021-03-25] MEDS: Albumin Human 25% (100 mL) 25 GM/100 ML BAG IV ×2 (11:52→13:23)
[2021-03-25] MEDS: Lidocaine 2% (20 ml mdv) 20 ML Vial (12:01)
[2021-03-25 15:16] VITALS: BP 117/63; PULSE 68; RESP 16; TEMP 36.7
== END | disposition home or self-care (01) ==
PROVIDERS: PCP Family Medicine Geriatric Medicine; Referring Provider Internal Medicine Gastroenterology; Visit Provider Internal Medicine Gastroenterology
DX: K74.60 Unspecified cirrhosis of liver (principal); R18.8 Other ascites
CPT/HCPCS: 96365; 96366 ×2; 49083; J7050; P9047; A4216

== ENCOUNTER 2021-04-01 13:31 | Outpatient (RCR) | payer MEDICARE, SELFPAY ==
[2021-02-13 22:00] VITALS: BMI 23.6
[2021-03-19 11:23] LABS: Absolute Lymphocyte Count 1.33 X10^3/uL (0.83-4.51); Absolute Neutrophil Count 2.4 X10^3/uL (2.0-7.7); Basophil# 0.03 X10^3/uL; Basophil% 0.7 % (0-1); Eosinophils% 4.5 % (0-5); Hematocrit 36.1 % (37-47); Hemoglobin 11.3 g/dL (12.0-15.0); Lymphocyte # 1.33 X10^3/ul (0.83-4.51); Lymphocyte % 30.1 % (19-41); Mean Corp Hgb Conc 31.3 g/dL (32-36); Mean Corpuscular Hgb 29.4 pg (27.0-32.0); Mean Platelet Vol. 10.9 fl (6.2-12.0); Monocyte# 0.45 X10^3/uL; Monocyte% 10.2 % (0-10); NRBC Flagged by Analyzer 0 % (0-5); Neutrophil % 54.3 % (47-70); Platelet Count 131 K/mm3 (150-450); RBC Distribution Width CV 15.8 % (11.6-14.6); RBC Distribution Width SD 54.6 fl (35.1-43.9); Red Blood Count 3.84 M/mm3 (4.2-5.4); White Blood Count 4.4 K/mm3 (4.4-11.0)
[2021-03-19 11:51] LABS: ALB/GLOB Ratio 0.7 RATIO (0.9-2.4); AST(SGOT) 33 U/L (15-37); Alanine Aminotransfer ALT/SGPT 23 U/L (13-56); Albumin, Serum 2.7 g/dL (3.2-5.0); Alkaline Phosphatase 97 U/L (45-117); Anion Gap 5 (5-15); BUN 14 mg/dL (7-18); BUN/Creat Ratio 9.7 RATIO (10-20); Calcium,Total 8.4 mg/dL (8.5-10.1); Chloride 108 mmol/L (98-107); Creatinine, Serum 1.44 mg/dL (0.55-1.02); EST Glomerular Filtration Rate 40 mL/min (>60); Est Glom Filt Rate - Afr Amer 48 mL/min (>60); Globulin 3.7 g/dL (2.2-4.2); Glucose 70 mg/dL (74-106); Potassium 3.8 mmol/L (3.5-5.1); Protein, Total 6.4 g/dL (6.4-8.2); Sodium Level 139 mmol/L (136-145)
[2021-04-01 15:40] LABS: Anion Gap 6 (5-15); BUN 15 mg/dL (7-18); BUN/Creat Ratio 10.4 RATIO (10-20); Chloride 110 mmol/L (98-107); Creatinine, Serum 1.44 mg/dL (0.55-1.02); EST Glomerular Filtration Rate 40 mL/min (>60); Est Glom Filt Rate - Afr Amer 48 mL/min (>60); Glucose 93 mg/dL (74-106); Potassium 4.2 mmol/L (3.5-5.1); Sodium Level 141 mmol/L (136-145)
== END 2021-04-15 18:00 | disposition home or self-care (01) ==
LOC: LAB 13:31
PROVIDERS: PCP Family Medicine Geriatric Medicine; Referring Provider Internal Medicine Gastroenterology; Visit Provider Internal Medicine Gastroenterology
DX: D64.9 Anemia, unspecified (principal); K82.4 Cholesterolosis of gallbladder; R19.04 Left lower quadrant abdominal swelling, mass and lump; K70.31 Alcoholic cirrhosis of liver with ascites; K46.9 Unspecified abdominal hernia without obstruction or gangrene
CPT/HCPCS: 36415; 80048; 80053; 83970; 84100; 85025

== ENCOUNTER → 2021-04-08 10:07 | Outpatient (CLI) | payer MEDICARE, SELFPAY ==
--- NOTE | 2021-04-08 10:23 | US_ITS ---
PROCEDURE: Ultrasound guided paracentesis. DATE OF EXAMINATION: 04/08/2021. INDICATION: Female, 60 years old. Ascites. PHYSICIAN: Gustabo Tripp D.O. TECHNIQUE: The risks, benefits, and alternatives to the procedure were explained to the patient. The specific risks of bleeding, infection, and damage to bowel were detailed and accepted. Witnessed informed consent was obtained. The abdomen was ultrasonographically surveyed. An appropriate pocket of fluid was identified at the right lower quadrant. The skin were cleaned and prepped in the usual sterile fashion. Using ultrasound guidance, the peritoneal cavity was accessed with a 5-Syrian paracentesis needle/catheter system. The trocar was removed. A total of 8000 ml of clear brad-colored ascites fluid were removed from the peritoneal cavity. The catheter was removed and a sterile dressing was applied. The procedure was well tolerated. US/Paracentesis with US IMPRESSION: Ultrasound guided paracentesis with 8000 mL clear brad-colored ascites fluid removed. Electronically Signed: Gustabo Tripp MD at 13:16 EST Tel , Service support ,
[2021-04-08 10:34] VITALS: BP 133/71; BP 135/81; BP 138/73; BP 144/84; PULSE 59; PULSE 61; PULSE 62; PULSE 68; RESP 16; TEMP 36.7; O2SAT 100; O2SAT 97; O2SAT 99
[2021-04-08] MEDS: Lidocaine 2% (20 ml mdv) 20 ML Vial 10 ML INFILT (10:40)
[2021-04-08] MEDS: Albumin Human 25% (100 mL) 25 GM/100 ML BAG IV ×2 (12:06→13:37)
[2021-04-08 12:09] VITALS: BP 111/51; PULSE 62; RESP 16; TEMP 36.8; O2SAT 99
[2021-04-08 15:32] VITALS: BP 122/53; PULSE 73; RESP 16; TEMP 36.8; O2SAT 98
== END ==
PROVIDERS: PCP Family Medicine Geriatric Medicine; Referring Provider Internal Medicine Gastroenterology; Visit Provider Internal Medicine Gastroenterology
DX: K74.60 Unspecified cirrhosis of liver (principal); R18.8 Other ascites
CPT/HCPCS: 96365; 96366 ×2; 49083; J7050; P9047

== ENCOUNTER 2021-04-21 09:21 | Outpatient (RCR) | payer MEDICARE, SELFPAY ==
[2021-04-16 03:35] VITALS: BMI 23.6
[2021-04-21 10:43] LABS: Absolute Lymphocyte Count 0.92 X10^3/uL (0.83-4.51); Absolute Neutrophil Count 2.4 X10^3/uL (2.0-7.7); Basophil# 0.03 X10^3/uL; Basophil% 0.8 % (0-1); Eosinophil# 0.21 X10^3/uL; Eosinophils% 5.4 % (0-5); Hematocrit 34.1 % (37-47); Hemoglobin 10.7 g/dL (12.0-15.0); Lymphocyte # 0.92 X10^3/ul (0.83-4.51); Lymphocyte % 23.8 % (19-41); Mean Corp Hgb Conc 31.4 g/dL (32-36); Mean Corpuscular Volume 92.4 fL (81-99); Mean Platelet Vol. 10.3 fl (6.2-12.0); Monocyte% 7.8 % (0-10); NRBC Flagged by Analyzer 0 % (0-5); Neutrophil # 2.39 X10^3/uL (2.7-7.7); Neutrophil % 61.9 % (47-70); Platelet Count 120 K/mm3 (150-450); RBC Distribution Width CV 15.2 % (11.6-14.6); RBC Distribution Width SD 51.8 fl (35.1-43.9); Red Blood Count 3.69 M/mm3 (4.2-5.4); White Blood Count 3.9 K/mm3 (4.4-11.0)
[2021-04-21 11:13] LABS: ALB/GLOB Ratio 0.7 RATIO (0.9-2.4); AST(SGOT) 33 U/L (15-37); Alanine Aminotransfer ALT/SGPT 27 U/L (13-56); Albumin, Serum 2.6 g/dL (3.2-5.0); Alkaline Phosphatase 103 U/L (45-117); Anion Gap 5 (5-15); BUN 13 mg/dL (7-18); BUN/Creat Ratio 10.5 RATIO (10-20); Calcium,Total 8.6 mg/dL (8.5-10.1); Chloride 111 mmol/L (98-107); Creatinine, Serum 1.24 mg/dL (0.55-1.02); EST Glomerular Filtration Rate 47 mL/min (>60); Est Glom Filt Rate - Afr Amer 57 mL/min (>60); Globulin 3.8 g/dL (2.2-4.2); Glucose 86 mg/dL (74-106); Potassium 4.4 mmol/L (3.5-5.1); Protein, Total 6.4 g/dL (6.4-8.2); Sodium Level 142 mmol/L (136-145)
== END 2021-05-17 18:00 | disposition home or self-care (01) ==
LOC: LAB 09:21
PROVIDERS: PCP Family Medicine Geriatric Medicine; Referring Provider Internal Medicine Gastroenterology; Visit Provider Internal Medicine Gastroenterology
DX: D64.9 Anemia, unspecified (principal); K82.4 Cholesterolosis of gallbladder; R19.04 Left lower quadrant abdominal swelling, mass and lump; K70.31 Alcoholic cirrhosis of liver with ascites; K46.9 Unspecified abdominal hernia without obstruction or gangrene
CPT/HCPCS: 36415; 80053; 85025

== ENCOUNTER → 2021-04-22 09:02 | Outpatient (CLI) | payer MEDICARE, SELFPAY ==
--- NOTE | 2021-04-22 09:04 | US_ITS ---
PROCEDURE: Ultrasound guided paracentesis. DATE OF EXAMINATION: 04/22/2021.. INDICATION: Female, 60 years old. Ascites. PHYSICIAN: Hernandez Eli M.D. TECHNIQUE: The risks, benefits, and alternatives to the procedure were explained to the patient. The specific risks of bleeding, infection, and damage to bowel were detailed and accepted. Witnessed informed consent was obtained. The abdomen was ultrasonographically surveyed. An appropriate pocket of fluid was identified at the left lower quadrant. The skin were cleaned and prepped in the usual sterile fashion. Using ultrasound guidance, the peritoneal cavity was accessed with a 5-British paracentesis needle/catheter system. The trocar was removed. A total of 5950 ml of brad-colored fluid were removed from the peritoneal cavity. The catheter was removed and a sterile dressing was applied. The procedure was well tolerated. US/Paracentesis with US IMPRESSION: Ultrasound guided paracentesis. Electronically Signed: Hernandez Eli MD at 10:10 EST , Service support ,
[2021-04-22] MEDS: Lidocaine 2% (20 ml mdv) 20 ML Vial INFILT (09:15)
[2021-04-22 09:20] VITALS: BP 153/80; BP 164/71; PULSE 60; PULSE 61; RESP 16; O2SAT 98; O2SAT 99
[2021-04-22] MEDS: Albumin Human 25% (100 mL) 25 GM/100 ML BAG IV ×2 (10:13→11:36)
[2021-04-22 10:15] VITALS: BP 132/61; PULSE 61; RESP 16; TEMP 36.8; O2SAT 98
[2021-04-22 13:29] VITALS: BP 136/53; PULSE 78; RESP 16; TEMP 36.9; O2SAT 99
[2021-04-22 16:47] LABS: Absolute Lymphocyte Count 0.61 X10^3/uL (0.83-4.51); Absolute Neutrophil Count 1.6 X10^3/uL (2.0-7.7); Basophil# 0.01 X10^3/uL; Basophil% 0.4 % (0-1); Eosinophil# 0.11 X10^3/uL; Eosinophils% 4.3 % (0-5); Hemoglobin 9.5 g/dL (12.0-15.0); Lymphocyte # 0.61 X10^3/ul (0.83-4.51); Lymphocyte % 23.6 % (19-41); Mean Corp Hgb Conc 31.7 g/dL (32-36); Mean Corpuscular Hgb 29.4 pg (27.0-32.0); Mean Corpuscular Volume 92.9 fL (81-99); Mean Platelet Vol. 10.9 fl (6.2-12.0); Monocyte# 0.28 X10^3/uL; Monocyte% 10.9 % (0-10); NRBC Flagged by Analyzer 0 % (0-5); Neutrophil # 1.56 X10^3/uL (2.7-7.7); Neutrophil % 60.4 % (47-70); POSITIVE COUNT YES; Platelet Count 99 K/mm3 (150-450); RBC Distribution Width SD 51.6 fl (35.1-43.9); Red Blood Count 3.23 M/mm3 (4.2-5.4); White Blood Count 2.6 K/mm3 (4.4-11.0)
[2021-04-22 16:49] LABS: Differential Indicated SCAN CRITERIA MET
[2021-04-22 17:07] LABS: ALB/GLOB Ratio 1.1 RATIO (0.9-2.4); AST(SGOT) 30 U/L (15-37); Alanine Aminotransfer ALT/SGPT 23 U/L (13-56); Albumin, Serum 3.4 g/dL (3.2-5.0); Alkaline Phosphatase 87 U/L (45-117); Anion Gap 9 (5-15); BUN 14 mg/dL (7-18); BUN/Creat Ratio 10.6 RATIO (10-20); Calcium,Total 7.9 mg/dL (8.5-10.1); Chloride 110 mmol/L (98-107); Cholesterol 98 mg/dL (200); Creatinine, Serum 1.32 mg/dL (0.55-1.02); EST Glomerular Filtration Rate 44 mL/min (>60); Est Glom Filt Rate - Afr Amer 53 mL/min (>60); Globulin 3.1 g/dL (2.2-4.2); Glucose 92 mg/dL (74-106); High Density Lipoprotein 28 mg/dL; Potassium 4.1 mmol/L (3.5-5.1); Protein, Total 6.5 g/dL (6.4-8.2); Sodium Level 141 mmol/L (136-145); Thyroid Stim Hormone (TSH) 1.55 uIU/mL (0.358-3.74); Triglycerides 86 mg/dL; Very Low Density Lipoprotein 17 mg/dL (5-40)
[2021-04-22 17:26] LABS: Differential Comment SCANNED
== END | disposition home or self-care (01) ==
LOC: US 09:41 → MEDOUTP 10:03
PROVIDERS: PCP Family Medicine Geriatric Medicine; Referring Provider Internal Medicine Gastroenterology; Visit Provider Internal Medicine Gastroenterology
DX: K74.60 Unspecified cirrhosis of liver (principal); R18.8 Other ascites; E78.5 Hyperlipidemia, unspecified; R53.83 Other fatigue
CPT/HCPCS: 96365; 96366 ×2; 36415; 49083; 80053; 80061; 84443; 85025; P9047; A4216

== ENCOUNTER → 2021-05-06 08:51 | Outpatient (CLI) | payer MEDICARE, SELFPAY ==
--- NOTE | 2021-05-06 08:55 | US_ITS ---
PROCEDURE: Ultrasound guided paracentesis. DATE OF EXAMINATION: 05/06/2021. INDICATION: Female, 61 years old. Ascites. PHYSICIAN: Hernandez Eli M.D. TECHNIQUE: The risks, benefits, and alternatives to the procedure were explained to the patient. The specific risks of bleeding, infection, and damage to bowel were detailed and accepted. Witnessed informed consent was obtained. The abdomen was ultrasonographically surveyed. An appropriate pocket of fluid was identified at the right lower quadrant. The skin were cleaned and prepped in the usual sterile fashion. Using ultrasound guidance, the peritoneal cavity was accessed with a 5-Citizen Of [place] paracentesis needle/catheter system. The trocar was removed. A total of 4400 ml of brad-colored fluid were removed from the peritoneal cavity. The catheter was removed and a sterile dressing was applied. The procedure was well tolerated. US/Paracentesis with US IMPRESSION: Ultrasound guided paracentesis. Electronically Signed: Hernandez Eli MD at 10:53 EST , Service support ,
[2021-05-06] MEDS: Lidocaine 2% (20 ml mdv) 20 ML Vial INFILT (09:00)
[2021-05-06 09:10] VITALS: BP 138/73; BP 144/78; BP 160/71; PULSE 52; PULSE 58; PULSE 61; RESP 16; TEMP 37; O2SAT 100; O2SAT 98; O2SAT 99
[2021-05-06 10:20] VITALS: BP 116/62; PULSE 106; RESP 16; TEMP 37.1; O2SAT 97
[2021-05-06] MEDS: Albumin Human 25% (100 mL) 25 GM/100 ML BAG IV ×2 (10:35→12:01)
[2021-05-06 13:57] VITALS: BP 123/65; PULSE 72; RESP 16; TEMP 37.5; O2SAT 98
== END ==
LOC: US 08:52 → MEDOUTP 09:58
PROVIDERS: PCP Family Medicine Geriatric Medicine; Referring Provider Internal Medicine Gastroenterology; Visit Provider Internal Medicine Gastroenterology
DX: R18.8 Other ascites (principal)
CPT/HCPCS: 96365; 96366; 96367; 49083; P9047

== ENCOUNTER → 2021-05-07 12:44 | Outpatient (CLI) | payer MEDICARE, SELFPAY ==
--- NOTE | 2021-05-07 12:47 | CDU_ITS ---
Reason For Study: CAROTID STENOSIS Rt. Velocities/BP Lt. Velocities/BP Prox CCA 76.4/16.4 cm/sec. Prox CCA 107.2/28.6 cm/sec. Mid CCA 82.9/15.1 cm/sec. Mid CCA 93.7/16.3 cm/sec. Dist CCA 98.6/25.6 cm/sec. Dist CCA 91.2/16.3 cm/sec. Prox ICA 74.8/19.5 cm/sec. Prox ICA 100.3/21.7 cm/sec. Mid ICA 77.3/13.4 cm/sec. Mid ICA 80.0/25.2 cm/sec. Dist ICA 120.7/29.8 cm/sec. Dist ICA 100.3/29.0 cm/sec. Rt. ICA/CCA = 120.7/98.6=1.2. Lt. ICA/CCA = 100.3/93.7=1.1. Prox ECA 141.7/10.2 cm/sec. Prox ECA 62.1/10.6 cm/sec. Rt. Vert. 93.7/26.2 cm/sec. Lt. Vert. 88.3/25.6 cm/sec. Right Extracranial There is heterogeneous, irregular atherosclerotic plaque noted in the right common carotid artery. There is heterogeneous, irregular atherosclerotic plaque noted in the right internal carotid artery. There is heterogeneous, irregular atherosclerotic plaque noted in the right external carotid artery. Antegrade flow is noted in the right vertebral artery. Left Extracranial There is heterogeneous, irregular atherosclerotic plaque noted in the left common carotid artery. The left internal carotid artery is very tortuous. There is heterogeneous, smooth atherosclerotic plaque noted in the left internal carotid artery. There is homogeneous, smooth atherosclerotic plaque noted in the left external carotid artery. Antegrade flow is noted in the left vertebral artery. Procedure Carotid Duplex [id number]. This is a Carotid Duplex examination using B-mode, color flow and specral Doppler. The study was technically difficult. Exam performed in department. VL/Carotid Duplex Ultrasound Interpretation Summary Irregular calcific plaque with shadowing at the proximal right internal carotid artery with less than 50% stenosis. Less than 50% stenosis right external carotid artery Irregular calcific plaque of the proximal left internal carotid artery with les s than 50% stenosis Less than 50% stenosis left external carotid artery Patent antegrade vertebral arteries bilaterally Findings do not suggest progression of disease from the previous examination of April 04, 2019 Ordering Physician: Vic Ny Referring Physician: Vic Ny Chi Performed By: Kriss Weir, JULIAN, RVT
== END ==
PROVIDERS: PCP Family Medicine Geriatric Medicine; Referring Provider Family Medicine Geriatric Medicine; Visit Provider Family Medicine Geriatric Medicine
DX: I65.23 Occlusion and stenosis of bilateral carotid arteries (principal); K70.31 Alcoholic cirrhosis of liver with ascites; N18.4 Chronic kidney disease, stage 4 (severe); D63.1 Anemia in chronic kidney disease
CPT/HCPCS: 36415; 80053; 82607; 82728; 82746; 82784; 83540; 83550; 83615; 83883; 84165; 85025; 85652; 86334; 93880

== ENCOUNTER → 2021-05-08 09:25 | Outpatient (CLI) | payer MEDICARE, SELFPAY ==
--- NOTE | 2021-05-08 09:45 | MRI_ITS ---
We are attempting to reach an attending provider to discuss findings. An addendum with communication details will be sent when the communication is complete. STUDY: MRI BRAIN WITHOUT CONTRAST REASON FOR EXAM: Female, 61 years old. APHASIA TECHNIQUE: Standardized multiplanar fat and water weighted pulse sequences were obtained. COMPARISON: None. FINDINGS: Normal size of the ventricles and extra-axial spaces for the patient''s age. There are multiple white matter hyperintensities, distributed throughout the deep white matter tracts of the cerebral hemispheres, consistent with mild chronic white matter ischemic changes. There is approximately 2 cm area of restricted diffusion involving the left parietal lobe with drop of signal on ADC map, consistent with acute infarctions. Normal bilateral basal ganglia. Normal thalami. There is no extra-axial fluid accumulation. Normal sella turcica, pituitary gland, infundibular stalk, optic chiasm and hypothalamus. Normal tectal plate and pineal gland. Normal midbrain, manuel and medulla. Normal cerebellum. Normal basal cisterns. MRI/Brain without Contrast IMPRESSION: Acute small left parietal infarct. Mild chronic microvascular ischemic changes. Electronically Signed: Alma Delia Millan MD at 10:35 EST Tel , Service support ,
== END ==
PROVIDERS: PCP Family Medicine Geriatric Medicine; Visit Provider Family Medicine Geriatric Medicine
DX: R47.01 Aphasia (principal); D64.9 Anemia, unspecified
CPT/HCPCS: 70551; 82274

== ENCOUNTER 2021-05-08 11:05 | Emergency (ER) | payer MEDICARE, SELFPAY ==
[2021-05-08 11:06] VITALS: BP 149/49; PULSE 61; RESP 18; TEMP 36.7; O2SAT 97; BMI 22.8
[2021-05-08 11:16] VITALS: BMI 22.8
--- NOTE | 2021-05-08 11:22 | EKG12_ITS ---
Test Reason : NEURO Blood Pressure : / mmHG Vent. Rate : 056 BPM Atrial Rate : 056 BPM P-R Int : 196 ms QRS Dur : 084 ms QT Int : 450 ms P-R-T Axes : 022 051 065 degrees QTc Int : 434 ms Sinus bradycardia Low voltage QRS Borderline ECG Confirmed by JUANITA BABCOCK, MERRY ([id number]), editorial cartoonist FILI OROZCO ([id number]) on 05/13/2021 9:29:46 AM Referred By: BB Confirmed By:MERRY GRANT MD
--- NOTE | 2021-05-08 11:24 | EDS_ITS ---
HPI History of Present Illness Chief Complaint: Neuro S/Sx Informant: patient Onset/Context/Timing Onset: Weeks (4) Context: - (Cannot remember details of onset) Timing: Continuous Quality and Location: Positive for Expressive Aphasia Current Severity: Mild Maximum Severity: Mild Worsened by: nothing Relieved by: nothing Associated Symptoms Associated Symptoms: Negative for Headache, Nausea, Vomiting and Chest Pain Narrative Narrative: Patient has been having trouble getting words out that she wants to for 4 weeks now. She was seen by her doctor, she had repeat of her biannually carotid Dopplers yesterday and an MRI of her brain today that was positive for stroke so she was referred here to the emergency department. She states since the onset of the speech problems she has had no changes or other acute symptoms. She denies lateralizing neurologic deficits in her arms or legs. No trouble walking or with balance. She denies headache, vomiting, loss of consciousness, changes in vision. She does not take any antiplatelet or anticoagulant medications. She has biweekly paracentesis for cirrhosis related ascites. She also has a left arm AV fistula due to chronic kidney disease that she is not require dialysis for. She denies any recent surgeries or head injuries. She has never needed any surgeries done on her neck/carotids or other vasculature. [facility] Medical History (Updated 05/08/21 @ 12:[address] Cl Gardner MD) Alcoholic cirrhosis of liver with ascites Anemia History of alcohol abuse Hypothyroidism Inguinal hernia of left side without obstruction or gangrene Kidney disease, chronic, stage IV (GFR 15-29 ml/min) Lung mass Nutritional anemia Renal failure Spontaneous bacterial peritonitis Stage 1 mild COPD by GOLD classification SVT (supraventricular tachycardia) Tobacco abuse Home Medications pantoprazole 40 mg tablet,delayed release 40 mg PO DAILY 03/22/19 [History Last Taken 04/26/20 08:00] levothyroxine 50 mcg capsule 50 mcg PO DAILY 04/03/19 [History Last Taken 05/01/20 06:00] calcitriol 0.25 mcg capsule 1 ea PO MOWEFR 10/17/19 [History Last Taken 04/29/20 08:00] hydroxyzine HCl 10 mg tablet 10 mg PO BID PRN tab 04/18/20 [History Last Taken 05/01/20 08:00] citalopram 10 mg PO DAILY 05/01/20 [History Last Taken 05/01/20 08:00] albuterol sulfate 90 mcg/actuation aerosol inhaler 2 puff INHALATION Q4H PRN #1 device 05/13/20 [Rx Last Taken Unknown] glycopyrrolate 9 mcg-formoterol 4.8 mcg HFA aerosol inhaler 2 puff INHALATION BID #3 device 05/13/20 [Rx Last Taken Unknown] cholecalciferol (vitamin D3) 1,000 unit PO DAILY 08/20/20 [History Last Taken Unknown] rifaximin 550 mg tablet 550 mg PO BID 01/02/21 [History Last Taken Unknown] sulfamethoxazole 500 mg tablet mg PO 01/03/21 [History Last Taken Unknown] metoprolol tartrate 25 mg tablet 25 mg PO BID #180 tab 01/13/21 [Rx Last Taken Unknown] atorvastatin 40 mg PO DAILY #30 tab 05/08/21 [Rx Last Taken Unknown] Allergy/AdvReac Type Severity Reaction Status Date / Time No Known Allergies Allergy Verified 05/08/21 11:07 Family History Father Myocardial infarction Mother Heart disease Kidney disease Liver disease Brother Brain cancer Surgical History AV (arteriovenous fistula) H/O dilation and curettage History of colonoscopy (~08/2018) Social History current occupational status: retired pets and animals: No Smoking Status: Current every day smoker tobacco type: cigarettes alcohol intake: former year quit: 2017 substance use type: marijuana caffeine: Yes Type: coffee Number of servings: 2 seatbelt use: always do you feel safe at home: Yes additional social history: single- unemployed ROS ROS ED Constitutional Constitutional ED: Denies chills or fever(s) Eyes Eyes: Denies change in vision or diplopia ENT ENT ED: Denies rhinorrhea or sore throat Cardiovascular Cardiovascular: Denies chest pain or palpitations Respiratory/Chest Respiratory/Chest: Denies cough or dyspnea Gastrointestinal Gastrointestinal: Denies abdominal pain, diarrhea, nausea or vomiting Genitourinary Genitourinary ED: Denies dysuria or hematuria Musculoskeletal Musculoskeletal: Denies back pain or neck pain Integumentary Denies abscess or rash Neurologic Neurologic: Reports as per HPI and abnormal speech; Denies headache(s), paresthesias or weakness Psychiatric Psychiatric: Denies anxiety or suicidal thoughts EXAM Physical Exam Const Vital Signs: 05/08/21 11:06 05/08/21 11:25 05/08/21 12:08 Temperature 98.0 F Temperature Source Temporal Pulse Rate 61 70 Respiratory Rate 18 14 Blood Pressure 149/49 H 126/54 H Blood Pressure Mean 82 78 Pulse Ox 97 98 Oxygen Delivery Method Room Air Room Air Room Air 05/08/21 13:11 Temperature Temperature Source Pulse Rate 59 L Respiratory Rate 9 L Blood Pressure 129/70 H Blood Pressure Mean 89 Pulse Ox 99 Oxygen Delivery Method Room Air Positive well nourished and well developed General Appearance ED: well developed and NAD HEENT Reports moist mucous membranes normocephalic and atraumatic Eyes PERRL and EOMs intact bilaterally Neck full ROM and supple Neck Narrative: No definite carotid bruits since cardiac murmur radiates to both carotids, this limits exam Resp normal respiratory effort and clear to auscultation bilaterally Cardio regular rate and regular rhythm Cardio Narrative: Crescendo-decrescendo systolic murmur approximately 2/6, radiating to both carotids GI non-tender and non-distended Auscultation: normoactive bowel sounds Palpation: soft Back/Spine no CVA tenderness General Back: other FROM Extremity normal to inspection General Extremety ED: Negative for edema, pulses abnormal or tenderness General Extremity: Negative for edema or pulses abnormal Neuro oriented x3, CN's II-XII intact bilaterally, no focal motor deficits, no sensory deficits noted and gait normal Neuro Narrative: Mild expressive aphasia without dysarthria Sensorium / Orientation: awake and alert Motor Exam: strength 5/5 throughout Skin no rashes or lesions noted and no wounds STROKE Vital Signs/Narrative: Vital Signs Temp Pulse Resp BP Pulse Ox 05/08/21 13:11 59 L 9 L 129/70 H 99 05/08/21 12:08 70 14 126/54 H 98 05/08/21 11:06 98.0 F 61 18 149/49 H 97 NIHSS Initial: 1a Level of Consciousness: 0 1b LOC Questions (Score 2 if aphasic/stupor): 0 1c LOC Commands (Only score 1st attempt): 0 2 Best Gaze (If aphasic, use reflexive mvmts.): 0 3 Visual: 0 4 Facial Palsy: 0 5 Motor Arm Right (UN = amputation/fusion): 0 5 Motor Arm Left: 0 6 Motor Leg Right: 0 6 Motor Leg Left: 0 7 Limb ataxia (Only + if out of proportion): 0 8 Sensory (Aphasia/stupor=0 or 1, coma=2): 0 9 Best Language: 1 10 Dysarthria (mute, coma=2, intubated=UN): 0 11 Extinction and Inattention (only scored if +): 0 Total Score: 1 MDM MDM MDM Narrative Medical decision making narrative: Standard stroke work-up was obtained except we skip the CT head since she had MRI this morning showing small left parietal ischemic stroke without any other abnormality or bleeding and she has had no change in symptoms clinically. She is hemodynamically and clinically stable. She has mild expressive aphasia, I had [facility] neurology emergently consult on her, and since she has had carotid Dopplers yesterday, we can safely start her on aspirin and she can be followed up as an outpatient for an echocardiogram and Holter monitor, I tried to place the latter on her here but we do not have any free ones available. I discussed with her PCP, he states he will see her just after the holiday weekend and he will schedule her for echocardiogram and Holter monitoring. Patient is not on atorvastatin or any other medication for lipids, so I will start her on that, and nursing will provide some stroke education. All questions answered at bedside and patient will be follow-up as an outpatient. Lab Data Attestation: I reviewed the patient's lab results. Labs: Laboratory Results - last 24 hr 05/08/21 05/08/21 05/08/21 11:32 11:32 11:32 WBC 3.8 L RBC 3.96 L Hgb 11.6 L Hct 36.3 L MCV 91.7 MCH 29.3 MCHC 32.0 RDW Std Deviation 52.2 H RDW Coeff of Constance 15.5 H Plt Count 113 L MPV 10.4 Immature Gran % (Auto) 0.300 Neut % (Auto) 59.7 Lymph % (Auto) 26.5 [place] % (Auto) 6.6 Eos % (Auto) 6.1 H Baso % (Auto) 0.8 Absolute Neuts (auto) 2.3 Absolute Lymphs (auto) 1.00 Nucleated RBC % 0 PT 16.2 H INR 1.4 APTT 35.5 Sodium 139 Potassium 4.1 Chloride 111 H Carbon Dioxide 24.0 Anion Gap 4 L BUN 13 Creatinine 1.49 H Estim Creat Clear Calc 31.76 Est GFR (MDRD) Af Amer 46 L Est GFR (MDRD) Non-Af 38 L BUN/Creatinine Ratio 8.7 L Glucose 78 Calcium 8.4 L Troponin I High Sens 18 Radiography Diagnostic Testing: Clinical Impression(s) from Imaging Studies Chest X-Ray 05/08/21 11:40 IMPRESSION: No acute thoracic pathology. Electronically Signed: Dax Mcgregor MD at 12:04 EST Tel , Service support , Rhythm Strip Rhythm Strip: Sinus Rhythm Rate: 64 Ectopy: None EKG Initial EKG: Attestation: I personally reviewed and interpreted this EKG as follows: Interpretation: No Acute Injury Pattern and Sinus Bradycardia Stroke Documentation Questions Stroke Team Activated: No (timing) Was Patient considered for Endovascular Intervention?: No (timing) IV Alteplase (t-PA) Administered: No (timing) Discharge Plan Triage Chief Complaint: Neuro S/Sx ED Provider: Cl Gardner Dx/Rx/DC Orders Clinical Impression: Acute ischemic stroke Instructions: Stroke: Self-Care Prescriptions: New atorvastatin 40 mg tablet 40 mg PO DAILY Qty: 30 RF: 0 No Action pantoprazole 40 mg tablet,delayed release (DR/EC) 40 mg PO DAILY RF: 0 calcitriol 0.25 mcg capsule 1 ea PO MOWEFR RF: 0 albuterol sulfate 90 mcg/actuation HFA aerosol inhaler 2 puff INHALATION Q4H PRN (Reason: shortness of breath or wheezing) Qty: 1 RF: 6 Bevespi Aerosphere 9-4.8 mcg HFA aerosol inhaler 2 puff INHALATION BID Qty: 3 RF: 3 Xifaxan 550 mg tablet 550 mg PO BID RF: 0 hydroxyzine HCl 10 mg tablet 10 mg PO BID PRN (Reason: Itching) RF: 0 sulfamethoxazole 500 mg tablet PO RF: 0 citalopram 10 MG tablet 10 mg PO DAILY RF: 0 cholecalciferol (vitamin D3) 2,000 UNIT capsule 1,000 unit PO DAILY RF: 0 levothyroxine 50 mcg capsule 50 mcg capsule 50 mcg PO DAILY RF: 0 metoprolol tartrate 25 mg tablet 25 mg PO BID Qty: 180 RF: 3 Primary Care Provider: Vic Ny Chi Referrals: Vic Ny Chi, MD [Primary Care Provider] - 05/13/21 (call for appt time for ER follow up) Activity Restrictions/Additional Instructions: Take baby aspirin once daily (81 mg) Disposition Disposition: Home, Self Care
--- NOTE | 2021-05-08 11:29 | TELEMED_ITS ---
[facility] Telemed has confirmed receipt of a request for visit. This document confirms receipt of the order initiating the consult. To find the results of the consultation, please view the patient's reports for the scanned Telemed Consult.
[2021-05-08 11:37] LABS: Absolute Neutrophil Count 2.3 X10^3/uL (2.0-7.7); Basophil# 0.03 X10^3/uL; Basophil% 0.8 % (0-1); Eosinophil# 0.23 X10^3/uL; Eosinophils% 6.1 % (0-5); Hematocrit 36.3 % (37-47); Hemoglobin 11.6 g/dL (12.0-15.0); Lymphocyte % 26.5 % (19-41); Mean Corpuscular Hgb 29.3 pg (27.0-32.0); Mean Corpuscular Volume 91.7 fL (81-99); Mean Platelet Vol. 10.4 fl (6.2-12.0); Monocyte# 0.25 X10^3/uL; Monocyte% 6.6 % (0-10); NRBC Flagged by Analyzer 0 % (0-5); Neutrophil # 2.26 X10^3/uL (2.7-7.7); Neutrophil % 59.7 % (47-70); Platelet Count 113 K/mm3 (150-450); RBC Distribution Width CV 15.5 % (11.6-14.6); RBC Distribution Width SD 52.2 fl (35.1-43.9); Red Blood Count 3.96 M/mm3 (4.2-5.4); White Blood Count 3.8 K/mm3 (4.4-11.0)
--- NOTE | 2021-05-08 11:40 | RAD_ITS ---
STUDY: X-RAY CHEST REASON FOR EXAM: Female, 61 years old. Altered mental status TECHNIQUE: Frontal view of the chest COMPARISON: 02/24/19 FINDINGS: The lungs are clear. There are no pleural effusions. There is no pneumothorax. The heart is normal in size. The visualized osseous structures are within normal limits. RAD/Chest 1 View IMPRESSION: No acute thoracic pathology. Electronically Signed: Dax Mcgregor MD at 12:04 EST Tel , Service support ,
[2021-05-08 11:46] LABS: International Normalized Ratio 1.4; Prothrombin Time (Protime)PT. 16.2 SECONDS (11.7-14.9)
[2021-05-08 11:47] LABS: Partial Thromboplast Time 35.5 Seconds (24.1-36.2)
[2021-05-08 12:00] LABS: Anion Gap 4 (5-15); BUN 13 mg/dL (7-18); BUN/Creat Ratio 8.7 RATIO (10-20); Calcium,Total 8.4 mg/dL (8.5-10.1); Chloride 111 mmol/L (98-107); Creatinine, Serum 1.49 mg/dL (0.55-1.02); EST Glomerular Filtration Rate 38 mL/min (>60); Est Glom Filt Rate - Afr Amer 46 mL/min (>60); Estimated Creatinine Clearance 31.76 ml/min; Glucose 78 mg/dL (74-106); Potassium 4.1 mmol/L (3.5-5.1); Sodium Level 139 mmol/L (136-145); Troponin-I HS 18 pg/mL (3.0-54.0)
[2021-05-08 12:08] VITALS: BP 126/54; PULSE 70; RESP 14; O2SAT 98
--- NOTE | 2021-05-08 12:28 | ED.RN ---
Dr consulted on NIH's. Order canceled per order. elisabet esposito, rn [id number]
[2021-05-08 13:11] VITALS: BP 129/70; PULSE 59; RESP 9; O2SAT 99
[2021-05-08] MEDS: Aspirin 81 MG TAB.CHEW PO (14:07)
[2021-05-08 14:16] VITALS: BMI 22.8
[2021-05-08 14:20] VITALS: BP 124/62; PULSE 58; RESP 16; O2SAT 99
== END 2021-05-08 14:22 | disposition home or self-care (01) ==
PROVIDERS: Emergency Provider Emergency Medicine; PCP Family Medicine Geriatric Medicine
DX: I63.9 Cerebral infarction, unspecified (principal); R47.01 Aphasia; R29.701 NIHSS score 1; J44.9 Chronic obstructive pulmonary disease, unspecified; N18.4 Chronic kidney disease, stage 4 (severe); D63.1 Anemia in chronic kidney disease; I47.1 Supraventricular tachycardia; E03.9 Hypothyroidism, unspecified; K70.31 Alcoholic cirrhosis of liver with ascites; F32.A Depression, unspecified; F41.9 Anxiety disorder, unspecified; F17.210 Nicotine dependence, cigarettes, uncomplicated; Z56.0 Unemployment, unspecified; Z79.899 Other long term (current) drug therapy
CPT/HCPCS: 70551; 71045; 80048; 82274; 84484; 85025; 85610; 85730; 93005; 99285; A4216

== ENCOUNTER → 2021-05-13 08:24 | Outpatient (CLI) | payer MEDICARE, SELFPAY ==
--- NOTE | 2021-05-13 08:26 | US_ITS ---
PROCEDURE: ULTRASOUND GUIDED PARACENTESIS PHYSICIAN: Ildefonso Monson MD INFORMED CONSENT: The risks, benefits, and alternatives to the procedure were explained to the patient. The specific risks of bleeding, infection, and damage to bowel were detailed and accepted. Witnessed informed consent was obtained. TECHNIQUES: The abdomen was ultrasonographically surveyed. An appropriate pocket of fluid was identified at the right lower quadrant. The skin was cleaned and prepped in the usual sterile fashion. Using ultrasound guidance, the peritoneal cavity was accessed with a 5-Upper Sorbian paracentesis needle/catheter system. The trocar was removed. A total of 2900 ml of yellow ascitic fluid was removed from the peritoneal cavity. The catheter was removed and a sterile dressing was applied. The procedure was well tolerated. The patient did not receive albumin during the procedure. # of Images: 11 US/Paracentesis with US IMPRESSION: Ultrasound guided paracentesis. Electronically Signed: Mg Monson MD at 12:48 EST Tel , Service support ,
[2021-05-13 08:45] VITALS: BP 124/60; BP 138/66; PULSE 60; RESP 16; RESP 18; O2SAT 98; O2SAT 99
[2021-05-13] MEDS: 0.9% Saline Lock 10 ML Syringe IV (09:42)
[2021-05-13 09:43] VITALS: BP 132/73; PULSE 57; RESP 16; TEMP 36.2; O2SAT 98
[2021-05-13] MEDS: Albumin Human 25% (100 mL) 25 GM/100 ML BAG IV ×2 (10:06→11:30)
[2021-05-13 13:25] VITALS: BP 119/63; PULSE 65; RESP 18; TEMP 36.6; O2SAT 99
== END ==
LOC: US 08:25 → MEDOUTP 09:26
PROVIDERS: PCP Family Medicine Geriatric Medicine; Referring Provider Internal Medicine Gastroenterology; Visit Provider Internal Medicine Gastroenterology
DX: K74.60 Unspecified cirrhosis of liver (principal); R18.8 Other ascites
CPT/HCPCS: 96365; 96366 ×2; 49083; P9047; A4216

== ENCOUNTER 2021-05-19 15:14 | Outpatient (RCR) | payer MEDICARE, SELFPAY ==
[2021-05-18 04:49] VITALS: BMI 23.6
[2021-05-19 16:24] LABS: Absolute Lymphocyte Count 0.81 X10^3/uL (0.83-4.51); Absolute Neutrophil Count 2.4 X10^3/uL (2.0-7.7); Basophil# 0.03 X10^3/uL; Basophil% 0.8 % (0-1); Eosinophil# 0.13 X10^3/uL; Eosinophils% 3.6 % (0-5); Hematocrit 32.7 % (37-47); Hemoglobin 10.3 g/dL (12.0-15.0); Lymphocyte # 0.81 X10^3/ul (0.83-4.51); Lymphocyte % 22.3 % (19-41); Mean Corp Hgb Conc 31.5 g/dL (32-36); Mean Corpuscular Hgb 28.9 pg (27.0-32.0); Mean Corpuscular Volume 91.9 fL (81-99); Mean Platelet Vol. 11.1 fl (6.2-12.0); Monocyte# 0.22 X10^3/uL; Monocyte% 6.1 % (0-10); NRBC Flagged by Analyzer 0 % (0-5); Neutrophil # 2.43 X10^3/uL (2.7-7.7); Neutrophil % 66.9 % (47-70); Platelet Count 114 K/mm3 (150-450); RBC Distribution Width CV 15.5 % (11.6-14.6); RBC Distribution Width SD 52.1 fl (35.1-43.9); Red Blood Count 3.56 M/mm3 (4.2-5.4); White Blood Count 3.6 K/mm3 (4.4-11.0)
[2021-05-19 17:09] LABS: International Normalized Ratio 1.5
[2021-05-19 17:16] LABS: ALB/GLOB Ratio 0.9 RATIO (0.9-2.4); AST(SGOT) 34 U/L (15-37); Alanine Aminotransfer ALT/SGPT 24 U/L (13-56); Albumin, Serum 3.3 g/dL (3.2-5.0); Alkaline Phosphatase 87 U/L (45-117); Anion Gap 6 (5-15); BUN 17 mg/dL (7-18); BUN/Creat Ratio 10.8 RATIO (10-20); Calcium,Total 8.1 mg/dL (8.5-10.1); Chloride 109 mmol/L (98-107); Creatinine, Serum 1.58 mg/dL (0.55-1.02); EST Glomerular Filtration Rate 36 mL/min (>60); Est Glom Filt Rate - Afr Amer 43 mL/min (>60); Globulin 3.5 g/dL (2.2-4.2); Glucose 91 mg/dL (74-106); Protein, Total 6.8 g/dL (6.4-8.2); Sodium Level 140 mmol/L (136-145)
[2021-05-21 14:01] LABS: AFP, Tumor Marker 1.9 ng/mL (0.0-8.3)
== END 2021-06-16 18:00 | disposition home or self-care (01) ==
LOC: LAB 15:14
PROVIDERS: PCP Family Medicine Geriatric Medicine; Referring Provider Internal Medicine Gastroenterology; Visit Provider Internal Medicine Gastroenterology
DX: K70.31 Alcoholic cirrhosis of liver with ascites (principal); K74.60 Unspecified cirrhosis of liver; R18.8 Other ascites; R19.04 Left lower quadrant abdominal swelling, mass and lump
CPT/HCPCS: 36415; 80053; 82105; 85025; 85610

== ENCOUNTER 2021-05-28 09:33 | Outpatient (CLI) | payer MEDICARE, SELFPAY ==
--- NOTE | 2021-05-28 09:36 | US_ITS ---
PROCEDURE: Ultrasound guided paracentesis. DATE OF EXAMINATION: 05/28/2021.. INDICATION: Female, 61 years old. Ascites. PHYSICIAN: Hernandez Eli M.D. TECHNIQUE: The risks, benefits, and alternatives to the procedure were explained to the patient. The specific risks of bleeding, infection, and damage to bowel were detailed and accepted. Witnessed informed consent was obtained. The abdomen was ultrasonographically surveyed. An appropriate pocket of fluid was identified at the right lower quadrant. The skin were cleaned and prepped in the usual sterile fashion. Using ultrasound guidance, the peritoneal cavity was accessed with a 5-Yakut paracentesis needle/catheter system. The trocar was removed. A total of 2800 ml of brad-colored fluid were removed from the peritoneal cavity. The catheter was removed and a sterile dressing was applied. The procedure was well tolerated. US/Paracentesis with US IMPRESSION: Ultrasound guided paracentesis. Electronically Signed: Hernandez Eli MD at 10:52 EST , Service support ,
[2021-05-28 09:51] VITALS: BP 122/56; BP 133/69; PULSE 57; PULSE 63; RESP 18; TEMP 36.6; O2SAT 100; O2SAT 98
[2021-05-28] MEDS: 0.9% Saline Lock 10 ML Syringe IV (10:21)
[2021-05-28] MEDS: Lidocaine 2% (20 ml mdv) 20 ML Vial INFILT (10:22)
[2021-05-28] MEDS: Albumin Human 25% (100 mL) 25 GM/100 ML BAG IV ×2 (10:46→12:16)
[2021-05-28 14:07] VITALS: BP 119/80; PULSE 73; RESP 16; O2SAT 99
== END 2021-05-28 23:59 | disposition short-term general hospital (02) ==
LOC: US 09:34 → MEDOUTP 10:21
PROVIDERS: PCP Family Medicine Geriatric Medicine; Referring Provider Internal Medicine Gastroenterology; Visit Provider Internal Medicine Gastroenterology
DX: K74.60 Unspecified cirrhosis of liver (principal); R18.8 Other ascites
CPT/HCPCS: 96365; 96366 ×2; 49083; P9047; A4216

== ENCOUNTER 2021-06-11 08:53 | Outpatient (CLI) | payer MEDICARE, SELFPAY ==
--- NOTE | 2021-06-11 08:59 | US_ITS ---
PROCEDURE: Ultrasound guided paracentesis. DATE OF EXAMINATION: 06/11/2021. INDICATION: Female, 61 years old. Ascites. PHYSICIAN: Hernandez Eli M.D. TECHNIQUE: The risks, benefits, and alternatives to the procedure were explained to the patient. The specific risks of bleeding, infection, and damage to bowel were detailed and accepted. Witnessed informed consent was obtained. The abdomen was ultrasonographically surveyed. An appropriate pocket of fluid was identified at the left lower quadrant. The skin were cleaned and prepped in the usual sterile fashion. Using ultrasound guidance, the peritoneal cavity was accessed with a 5-Setswana paracentesis needle/catheter system. The trocar was removed. A total of 5250 ml of brad-colored fluid were removed from the peritoneal cavity. The catheter was removed and a sterile dressing was applied. The procedure was well tolerated. US/Paracentesis with US IMPRESSION: Ultrasound guided paracentesis. Electronically Signed: Hernandez Eli MD at 10:44 EST ,
[2021-06-11] MEDS: Lidocaine 2% (20 ml mdv) 20 ML Vial INFILT (09:36)
[2021-06-11 10:28] VITALS: BP 120/68; BP 121/74; BP 128/64; PULSE 57; RESP 16; TEMP 36.8; O2SAT 98; O2SAT 99
[2021-06-11] MEDS: Albumin Human 25% (100 mL) 25 GM/100 ML BAG IV ×2 (10:42→12:10)
[2021-06-11 10:46] VITALS: BP 109/56; PULSE 55; RESP 16; TEMP 36.3; O2SAT 100; BMI 22.8
[2021-06-11 14:03] VITALS: BP 132/80; PULSE 71; RESP 16; TEMP 36.4; O2SAT 98
== END 2021-06-11 23:59 | disposition short-term general hospital (02) ==
LOC: US 08:54 → MEDOUTP 10:15
PROVIDERS: PCP Family Medicine Geriatric Medicine; Referring Provider Internal Medicine Gastroenterology; Visit Provider Internal Medicine Gastroenterology
DX: K74.60 Unspecified cirrhosis of liver (principal); R18.8 Other ascites
CPT/HCPCS: 96365; 96366 ×2; 49083; P9047

== ENCOUNTER 2021-06-25 09:22 | Outpatient (CLI) | payer MEDICARE, SELFPAY ==
--- NOTE | 2021-06-25 09:26 | US_ITS ---
PROCEDURE: Ultrasound guided paracentesis. DATE OF EXAMINATION: 06/24/2021. INDICATION: Female, 61 years old. Ascites. PHYSICIAN: Hernandez Eli M.D. TECHNIQUE: The risks, benefits, and alternatives to the procedure were explained to the patient. The specific risks of bleeding, infection, and damage to bowel were detailed and accepted. Witnessed informed consent was obtained. The abdomen was ultrasonographically surveyed. An appropriate pocket of fluid was identified at the right lower quadrant. The skin were cleaned and prepped in the usual sterile fashion. Using ultrasound guidance, the peritoneal cavity was accessed with a 5-Anguillan paracentesis needle/catheter system. The trocar was removed. A total of 5150 ml of brad-colored fluid were removed from the peritoneal cavity. The catheter was removed and a sterile dressing was applied. The procedure was well tolerated. US/Paracentesis with US IMPRESSION: Ultrasound guided paracentesis. Electronically Signed: Hernandez Eli MD at 10:51 EST ,
[2021-06-25 09:42] VITALS: BP 146/74; BP 158/77; PULSE 56; PULSE 63; RESP 16; RESP 17; O2SAT 100
[2021-06-25] MEDS: Lidocaine 2% (20 ml mdv) 20 ML Vial INFILT (10:00)
[2021-06-25 10:36] VITALS: BP 115/60; PULSE 60; RESP 16; TEMP 36.2; O2SAT 100; BMI 22.8
[2021-06-25] MEDS: Albumin Human 25% (100 mL) 25 GM/100 ML BAG IV ×2 (10:41→12:07)
--- NOTE | 2021-06-25 12:16 | CASEMGMT ---
Addendum entered by Earline Quiros 07/07/21 10:49: Social Work SW received a call from Radha at [facility], she states she reached out to pt, however pt was too busy to meet w/her regarding services. She states that pt had many appointments and was not able to meet w/Radha, asked Radha to mail her information which Radha did. JESSI Bernstein Original Note: Social Work SW met w/pt to offer support, and provide resources. Pt explained to this SW she and her daughter are living in a home that is owned by her daughter's friend. Pt's grandson who is 6, is staying w/his father at this time. Pt explains that nobody has lived in the home for 8 years so repairs are needed. They do have running water, they have a stove now, and are heating the home with wood. She is sleeping on the couch at present as the assistant professor of german is working on fixing up the bedroom. Pt reports to be fine with sleeping on the couch. She states it is frustrating as she feels she cannot say too much, this friend has said if they do not like it they don't have to stay. They are paying $500/month to live there. Pt is starting to think about other housing options if the assistant professor of german does not start making repairs. She states he is an adult but is kind of like a child. She is trying to be patient but is getting frustrated. She states now that deer hunting season if over she thinks he may start working more on the house. Support offered to pt. We talked about pt's support system. Though she lives w/her daughter, she states that her daughter is not always helpful. She does have a sister in law, [place], who she reports is supportive. [place] is from pt's brother who has since . She and [place] are still close however. We discussed what may be helpful for her. Pt did apply for Medicaid but was over income. She is in the process of again applying for food stamps, but it only offers her $20 a month. Her income is about $1500/month and she was told she is over income for any type of Medicaid. Her daughter is not working at present, though is in the process of applying for work. She states her daughter was working but then quit to work on the house. She states her daughter is strong and a good worker, but she is not a manager battery or electrician control equipment so there are things she cannot do. SW spoke w/pt about Meals on Wheels, she is not interested at this time. We also spoke about a skilled nursing care consult, she is open to this. SW completed the application and faxed it into [facility]. We spoke about other resources that may be helpful. She lives in [place] now, and is actually in [facility]. SW gave her information on [employer], [employer], [employer], and [employer]. These programs are more [facility] based however. SW explained will do a search for resources in [facility]. SW did research resources in [facility]. SW gave pt information on JFS in [facility], [employer], [employer], [employer], and some other programs that can help with food and utilities. SW also printed a list of food wilder, low income housing options, and other resources that may help with home repairs. We discussed using things such as food wilder to free up money for other needs, pt states she has done this in the past. Pt thanked GAYATHRI for all of the information, she plans to follow up and make some phone calls. SW gave pt this SW's number, let her know to call SW should any additional needs arise. Pt states understanding. JESSI Bernstein
[2021-06-25 13:59] VITALS: BP 114/69; PULSE 67
== END 2021-06-25 23:59 | disposition home or self-care (01) ==
LOC: US 09:23 → MEDOUTP 10:33
PROVIDERS: PCP Family Medicine Geriatric Medicine; Referring Provider Internal Medicine Gastroenterology; Visit Provider Internal Medicine Gastroenterology
DX: K74.60 Unspecified cirrhosis of liver (principal); R18.8 Other ascites
CPT/HCPCS: 96365; 96366 ×2; 49083; P9047; A4216

== ENCOUNTER 2021-07-09 09:25 | Outpatient (CLI) | payer MEDICARE, SELFPAY ==
--- NOTE | 2021-07-09 09:28 | US_ITS ---
PROCEDURE: Ultrasound guided paracentesis. DATE OF EXAMINATION: 07/09/2021. INDICATION: Female, 61 years old. Ascites. PHYSICIAN: Hernandez Eli M.D. TECHNIQUE: The risks, benefits, and alternatives to the procedure were explained to the patient. The specific risks of bleeding, infection, and damage to bowel were detailed and accepted. Witnessed informed consent was obtained. The abdomen was ultrasonographically surveyed. An appropriate pocket of fluid was identified at the right lower quadrant. The skin were cleaned and prepped in the usual sterile fashion. Using ultrasound guidance, the peritoneal cavity was accessed with a 5-Cypriot paracentesis needle/catheter system. The trocar was removed. A total of 5250 ml of brad-colored fluid were removed from the peritoneal cavity. The catheter was removed and a sterile dressing was applied. The procedure was well tolerated. US/Paracentesis with US IMPRESSION: Ultrasound guided paracentesis. Electronically Signed: Hernandez Eli MD at 10:38 EST ,
[2021-07-09 09:45] VITALS: BP 123/37; BP 129/68; BP 130/66; PULSE 54; PULSE 58; RESP 16; RESP 18; TEMP 37; O2SAT 100; O2SAT 99
[2021-07-09] MEDS: Lidocaine 2% (20 ml mdv) 20 ML Vial INFILT (09:45)
[2021-07-09] MEDS: Albumin Human 25% (100 mL) 25 GM/100 ML BAG IV ×2 (10:39→12:06)
[2021-07-09] MEDS: 0.9% Saline Lock 10 ML Syringe IV (10:45)
[2021-07-09 10:49] VITALS: BP 129/72; PULSE 56; RESP 16; TEMP 36.9; O2SAT 100
[2021-07-09 14:01] VITALS: BP 122/60; PULSE 64; TEMP 36.8; O2SAT 99
== END 2021-07-09 23:59 | disposition home or self-care (01) ==
LOC: US 09:27 → MEDOUTP 10:37
PROVIDERS: PCP Family Medicine Geriatric Medicine; Referring Provider Internal Medicine Gastroenterology; Visit Provider Internal Medicine Gastroenterology
DX: K74.60 Unspecified cirrhosis of liver (principal); R18.8 Other ascites
CPT/HCPCS: 96365; 96366 ×2; 49083; P9047; A4216

== ENCOUNTER 2021-07-23 09:05 | Outpatient (CLI) | payer MEDICARE, SELFPAY ==
--- NOTE | 2021-07-23 09:06 | US_ITS ---
PROCEDURE: Ultrasound guided paracentesis. DATE OF EXAMINATION: 07/23/2021.. INDICATION: Female, 61 years old. Ascites. PHYSICIAN: Hernandez Eli M.D. TECHNIQUE: The risks, benefits, and alternatives to the procedure were explained to the patient. The specific risks of bleeding, infection, and damage to bowel were detailed and accepted. Witnessed informed consent was obtained. The abdomen was ultrasonographically surveyed. An appropriate pocket of fluid was identified at the right lower quadrant. The skin were cleaned and prepped in the usual sterile fashion. Using ultrasound guidance, the peritoneal cavity was accessed with a 5-Slovak paracentesis needle/catheter system. The trocar was removed. A total of 5150 ml of brad-colored fluid were removed from the peritoneal cavity. The catheter was removed and a sterile dressing was applied. The procedure was well tolerated. US/Paracentesis with US IMPRESSION: Ultrasound guided paracentesis. Electronically Signed: Hernandez Eli MD at 10:32 EST ,
[2021-07-23 09:46] VITALS: BP 142/67; BP 148/67; PULSE 57; PULSE 60; RESP 14; TEMP 37; O2SAT 98; O2SAT 99
[2021-07-23] MEDS: Lidocaine 2% (20 ml mdv) 20 ML Vial INFILT (09:47)
[2021-07-23] MEDS: 0.9% Saline Lock 10 ML Syringe IV (10:50)
[2021-07-23] MEDS: Albumin Human 25% (100 mL) 25 GM/100 ML BAG IV ×2 (10:50→12:19)
[2021-07-23 10:56] VITALS: BP 87/59; PULSE 58; RESP 16; TEMP 36.2; O2SAT 99; BMI 22.8
--- NOTE | 2021-07-23 12:05 | CASEMGMT ---
ANJALI COELHO NOTE: ANJALI COELHO [facility] w[facility]pt [facility]. She reports she was supposed to have a colonoscopy done last week, but d/t getting sick w/the prep and having abdominal pain, that she ended up going to [facility]. She states a CT scan was done and she f/u w/Dr Aguirre the next morning, who then sent her back to the ED d/t a hernia. She states the hernia is not new and she has known about it for quite some time. She states she was informed it is inoperable and that she just tries to take it easy and not do a lot of lifting. Pt states she did receive the resources Radha @ [facility] mailed to her and she has went through/looked at some of it. She states she is still living w/her daughter in [place] and she is still sleeping on the couch, as the landlord just finished w/the bedroom repairs. She states she is hoping he and her daughter will be able to move her furniture into the bedroom today so she can start sleeping in there. Pt states she often does not feel well and needs to rest and other days she feels better and can do more. She states that her daughter is not much of a support for her and does not go to doctor appts w/her and states, Because she doesn't see what is really going on, she pretty much accused me of faking it. Pt stated her and her daughter are not compatible to live together. Pt states she is considering looking for another place to live and prefers to live in [facility]. She plans to contact [facility] soon to inquire about what is available. She states she has their contact information and denies needing any further assistance w/this. She became tearful when talking about the relationship w/her daughter. She recently tried to talk w/her daughter about them going to counseling to work through some of their issues, but states, That did not go well, stating her daughter became upset and refuses to go to counseling w/her. Pt stated w/all that is going on w/finances, appts, housing, and her daughter, that she is getting so tired of being on the phone trying to take care of all of it. She stated, I'm just about ready to give up. ANJALI COELHO inquired if pt has considered talking w/a counselor on her own to work through some of these things and she states she has thought about it. She reports she and her late had went to counseling in the past and she felt it was very helpful. She told this RN LAQUITA she went to the [facility] on [address] in [place] and would be interested in going there again. ANJALI COELHO provided pt w/[facility] contact #. Pt voices appreciation and states is planning to call them. Pt states she did receive $196 last month in food stamps is thankful for that. She reports she does have enough food/groceries. She denies needing any further assistance at this time. She was provided w/RN LAQUITA biomass production manager, Evelyn Culp's contact #, if any additional issues arise that she has questions/concerns about. ANJALI COELHO also informed pt she can reach out to Radha @ [facility]. She voice appreciation for all of the information. Jana ALCALA RN, CM
[2021-07-23 14:15] VITALS: BP 115/55; PULSE 70; RESP 16; TEMP 36.7; O2SAT 98
== END 2021-07-23 23:59 | disposition home or self-care (01) ==
LOC: US 09:05 → MEDOUTP 10:16
PROVIDERS: PCP Family Medicine Geriatric Medicine; Referring Provider Internal Medicine Gastroenterology; Visit Provider Internal Medicine Gastroenterology
DX: K74.60 Unspecified cirrhosis of liver (principal)
CPT/HCPCS: 96365; 96366 ×2; 49083; P9047; A4216

== ENCOUNTER 2021-08-06 09:08 | Outpatient (CLI) | payer MEDICARE, SELFPAY ==
--- NOTE | 2021-08-06 09:11 | US_ITS ---
PROCEDURE: Ultrasound guided paracentesis. DATE OF EXAMINATION: 08/06/2021. INDICATION: Female, 61 years old. Ascites. PHYSICIAN: Hernandez Eli M.D. TECHNIQUE: The risks, benefits, and alternatives to the procedure were explained to the patient. The specific risks of bleeding, infection, and damage to bowel were detailed and accepted. Witnessed informed consent was obtained. The abdomen was ultrasonographically surveyed. An appropriate pocket of fluid was identified at the right lower quadrant. The skin were cleaned and prepped in the usual sterile fashion. Using ultrasound guidance, the peritoneal cavity was accessed with a 5-Georgian paracentesis needle/catheter system. The trocar was removed. A total of 5350 ml of brad-colored fluid were removed from the peritoneal cavity. The catheter was removed and a sterile dressing was applied. The procedure was well tolerated. US/Paracentesis with US IMPRESSION: Ultrasound guided paracentesis. Electronically Signed: Hernandez Eli MD at 11:53 EDT ,
[2021-08-06] MEDS: Lidocaine 2% (20 ml mdv) 20 ML Vial INFILT (09:57)
[2021-08-06 10:30] VITALS: BP 132/82; BP 143/62; BP 155/68; PULSE 56; PULSE 59; PULSE 64; RESP 14; RESP 18; TEMP 37.1; O2SAT 98
[2021-08-06] MEDS: 0.9% Saline Lock 10 ML Syringe IV (10:54)
[2021-08-06] MEDS: Albumin Human 25% (100 mL) 25 GM/100 ML BAG IV ×2 (10:54→12:20)
[2021-08-06 14:10] VITALS: BP 119/72; PULSE 70; RESP 18; TEMP 37.2; O2SAT 98
== END 2021-08-06 23:59 | disposition home or self-care (01) ==
LOC: US 09:10 → MEDOUTP 10:41
PROVIDERS: PCP Family Medicine Geriatric Medicine; Referring Provider Internal Medicine Gastroenterology; Visit Provider Internal Medicine Gastroenterology
DX: K74.60 Unspecified cirrhosis of liver (principal)
CPT/HCPCS: 96365; 96366 ×2; 49083; P9047; A4216

== ENCOUNTER 2021-08-20 09:07 | Outpatient (CLI) | payer MEDICARE, SELFPAY ==
--- NOTE | 2021-08-20 09:09 | US_ITS ---
PROCEDURE: Ultrasound guided paracentesis. DATE OF EXAMINATION: 08/20/2021.. INDICATION: Female, 61 years old. Ascites. PHYSICIAN: Hernandez Eli M.D. TECHNIQUE: The risks, benefits, and alternatives to the procedure were explained to the patient. The specific risks of bleeding, infection, and damage to bowel were detailed and accepted. Witnessed informed consent was obtained. The abdomen was ultrasonographically surveyed. An appropriate pocket of fluid was identified at the right lower quadrant. The skin were cleaned and prepped in the usual sterile fashion. Using ultrasound guidance, the peritoneal cavity was accessed with a 5-Slovak paracentesis needle/catheter system. The trocar was removed. A total of 3050 ml of bard-colored fluid were removed from the peritoneal cavity. The catheter was removed and a sterile dressing was applied. The procedure was well tolerated. US/Paracentesis with US IMPRESSION: Ultrasound guided paracentesis. Electronically Signed: Hernandez Eli MD at 10:22 EDT ,
[2021-08-20 09:36] VITALS: BP 102/60; BP 107/58; PULSE 57; PULSE 58; RESP 16; O2SAT 98; O2SAT 99
[2021-08-20] MEDS: Lidocaine 2% (20 ml mdv) 20 ML Vial INFILT (09:45)
[2021-08-20] MEDS: Albumin Human 25% (100 mL) 25 GM/100 ML BAG IV ×2 (10:35→12:02)
[2021-08-20 14:10] VITALS: BP 138/64; PULSE 67; RESP 16; O2SAT 99
== END 2021-08-20 23:59 | disposition home or self-care (01) ==
LOC: US 09:07 → MEDOUTP 10:05
PROVIDERS: PCP Family Medicine Geriatric Medicine; Referring Provider Internal Medicine Gastroenterology; Visit Provider Internal Medicine Gastroenterology
DX: K74.60 Unspecified cirrhosis of liver (principal); R18.8 Other ascites
CPT/HCPCS: 96365; 96366 ×3; 49083; P9047

== ENCOUNTER → 2021-09-03 | Outpatient (CLI) | payer MEDICARE, SELFPAY ==
--- NOTE | 2021-09-03 09:16 | US_ITS ---
PROCEDURE: ULTRASOUND GUIDED PARACENTESIS CLINICAL HISTORY: Female, 61 years old. CIRRHOSIS PHYSICIAN: Ildefonso Monson MD INFORMED CONSENT: The risks, benefits, and alternatives to the procedure were explained to the patient. The specific risks of bleeding, infection, and damage to bowel were detailed and accepted. Witnessed informed consent was obtained. TECHNIQUES: The abdomen was ultrasonographically surveyed. An appropriate pocket of fluid was identified at the left lower quadrant. The skin was cleaned and prepped in the usual sterile fashion. Using ultrasound guidance, the peritoneal cavity was accessed with a 5-Indonesian paracentesis needle/catheter system. The trocar was removed. A total of 4650 ml of straw-colored ascitic fluid was removed from the peritoneal cavity. The catheter was removed and a sterile dressing was applied. The procedure was well tolerated. # of Images: 13 US/Paracentesis with US IMPRESSION: Ultrasound guided paracentesis. Electronically Signed: Mg Monson MD at 10:53 EDT ,
[2021-09-03 09:45] VITALS: BP 105/57; BP 124/80; BP 125/62; BP 129/64; PULSE 53; PULSE 54; PULSE 63; RESP 18; TEMP 36.6; TEMP 37.1; O2SAT 100; O2SAT 99
[2021-09-03] MEDS: 0.9% Saline Lock 10 ML Syringe IV (09:55)
[2021-09-03] MEDS: Lidocaine 2% (20 ml mdv) 20 ML Vial INFILT (10:30)
[2021-09-03 10:38] VITALS: BMI 22.8
[2021-09-03] MEDS: Albumin Human 25% (100 mL) 25 GM/100 ML BAG IV ×2 (10:49→12:14)
[2021-09-03 14:07] VITALS: BP 136/59; PULSE 63; RESP 16; O2SAT 99
== END | disposition home or self-care (01) ==
LOC: US 09:14 → MEDOUTP 10:21
PROVIDERS: PCP Family Medicine Geriatric Medicine; Referring Provider Internal Medicine Gastroenterology; Visit Provider Internal Medicine Gastroenterology
DX: K74.60 Unspecified cirrhosis of liver (principal); R18.8 Other ascites
CPT/HCPCS: 96365; 96366 ×2; 49083; P9047; A4216

== ENCOUNTER → 2021-09-17 | Outpatient (CLI) | payer MEDICARE, SELFPAY ==
--- NOTE | 2021-09-17 09:17 | US_ITS ---
PROCEDURE: Ultrasound guided paracentesis. DATE OF EXAMINATION: 09/17/2021. INDICATION: Female, 61 years old. Ascites. PHYSICIAN: Hernandez Eli M.D. TECHNIQUE: The risks, benefits, and alternatives to the procedure were explained to the patient. The specific risks of bleeding, infection, and damage to bowel were detailed and accepted. Witnessed informed consent was obtained. The abdomen was ultrasonographically surveyed. An appropriate pocket of fluid was identified at the right lower quadrant. The skin were cleaned and prepped in the usual sterile fashion. Using ultrasound guidance, the peritoneal cavity was accessed with a 5-Citizen Of [place] paracentesis needle/catheter system. The trocar was removed. A total of 3350 ml of brad-colored fluid were removed from the peritoneal cavity. The catheter was removed and a sterile dressing was applied. The procedure was well tolerated. US/Paracentesis with US IMPRESSION: Ultrasound guided paracentesis. Electronically Signed: Hernandez Eli MD at 11:24 EDT ,
[2021-09-17 09:43] VITALS: BP 125/72; BP 126/73; PULSE 60; PULSE 67; RESP 18; TEMP 37.2; O2SAT 100; O2SAT 99
[2021-09-17] MEDS: Lidocaine 2% (20 ml mdv) 20 ML Vial INFILT (09:45)
[2021-09-17 10:21] VITALS: BP 120/74; PULSE 64; RESP 16; TEMP 37.1; O2SAT 100; BMI 22.8
[2021-09-17] MEDS: Albumin Human 25% (100 mL) 25 GM/100 ML BAG IV ×2 (10:31→12:00)
[2021-09-17] MEDS: 0.9% Saline Lock 10 ML Syringe IV (10:35)
[2021-09-17 10:37] LABS: Hematocrit 34.9 % (37-47); Hemoglobin 11.2 g/dL (12.0-15.0); Mean Corp Hgb Conc 32.1 g/dL (32-36); Mean Corpuscular Hgb 29.3 pg (27.0-32.0); Mean Corpuscular Volume 91.4 fL (81-99); Platelet Count 148 K/mm3 (150-450); RBC Distribution Width CV 15.5 % (11.6-14.6); Red Blood Count 3.82 M/mm3 (4.2-5.4); White Blood Count 4.5 K/mm3 (4.4-11.0)
[2021-09-17 11:01] LABS: Albumin, Serum 3.1 g/dL (3.2-5.0); BUN 24 mg/dL (7-18); BUN/Creat Ratio 18.6 RATIO (10-20); Calcium,Total 8.4 mg/dL (8.5-10.1); Chloride 109 mmol/L (98-107); Creatinine, Serum 1.29 mg/dL (0.55-1.02); EST Glomerular Filtration Rate 45 mL/min (>60); Est Glom Filt Rate - Afr Amer 54 mL/min (>60); Estimated Creatinine Clearance 36.68 ml/min; Glucose 106 mg/dL (74-106); PTHIN 127.5 pg/mL (18.4-80.1); Phosphorus 3.3 mg/dL (2.5-4.9); Potassium 3.6 mmol/L (3.5-5.1); Sodium Level 140 mmol/L (136-145)
[2021-09-17 13:56] VITALS: BP 131/67; PULSE 76; RESP 16; O2SAT 98
--- NOTE | 2021-09-26 16:30 | CASEMGMT ---
ANJALI COELHO OP Care Coordination Note: ANJALI COELHO informed that pt is moving to [place] w/her sister around October 18 and would like assistance w/getting set up for on-going paracentesis and Albumin infusions and providers. Call placed to pt. She confirms the above. She plans to have next paracentesis and Albumin infusion @ [facility] on October 15 [address] plans to drive to [place] the weekend of October 18. She has been getting paracentesis every 2 weeks and anticipates her next paracentesis will be needed around 10/29. Per radiologist RN, current S.O are for Paracentesis weekly as needed, up to 8 L off and pt to receive 50 G Albumin post-paracentesis. Pt states she will be moving w/her sister, Shayla Dewitt (PH: [phone]), to the following address: [address] [place] [id number] Pt states she has been informed when she moves to [place] that her insurance will stay the same. She states her sister has an agent in [place] and pt plans to contact the agent when she gets down there to have her [place] plan. Pt states she does not know any PCP's or specialists there and does not have a preference of who she is established with. She stated is interested in [facility]. ANJALI COELHO placed call to [facility] member/provider services and spoke w/Berenice, international account executive. She provided list of local PCP's @ pt's new address as well as gastroenterologists and nephrologists. ANJALI COELHO provided pt w/list of physicians to review and to notify NAJALI COELHO of her preferences. Pt states prefers to go to an adult geriatric PCP. Call placed to Dr Manuel Wheat, in [place], [place], (PH: [phone]) who specializes in Adult geriatrics. They confirm they are In-network w/pt's insurance--once she is under [place] plan. They are accepting new pt's but are unable to schedule an appt for pt until she has an insurance card w/Dr Wheat's name on the card. Pt was provided w/all of this info. She states is interested in getting set up w/Dr Wheat and does not wish for ANJALI COELHO to contact further PCP's or schedule any appts at this time. Per Berenice @ [facility], [place] requires referral from PCP to specialists. Pt made aware of same. Berenice also states is not finding [facility] on In-network providers list w/pt's insurance (and per CM @ [facility], they do not do OP Albumin infusions there), but states [facility] is In-network (and per Evelyn-[employer] Worker of Same-Day Surgery/Infusions, they do Albumin infusions there). Pt also made aware of this and is interested in going to [facility] Call placed to [facility] ([facility]) @ [phone]. Per Christin/medical records custodian ([phone]), the following GI physicians have hospital privileges. ANJALI COELHO confirmed w/ Haysi @ [facility] services, that these physicians are also in-network w/pt's insurance under the [place] plan: Nephrology: Dr Roxanne Isabel. Office is in [place]. PH: [phone]. Gastroenterology: Dr Carlos Robledo in [place], [place]. (Has his own individual practice and is also a [employer]) PH: [phone] Dr Jerad Jay in [place], [place] (Has his own individual practice) PH: [phone] [facility] --have offices in both [place] and [place], [place]: PH: [phone]. Dr Sonido Malave, Dr Mario Gutierrez, Dr Juli Tompkins. Call placed to [facility], as pt states is interested in going there. They state they do both Paracentesis and Albumin infusions @ their office. *Pt will need a referral from her PCP and authorization will need to be obtained prior to her 1st appt. They will not schedule an appt ahead of time. (They did state, once referral has been obtained, they can schedule an appt, but they always schedule it out in 2 1/2 weeks, while authorization is pending). *If pt requires paracentesis prior to insurance authorization and appt, she will need to go to ER to have this done. Pt made aware of all of the above and voices understanding. She voices appreciation of all of the information, denies having any further questions at this time, and denies needing further assistance. Pt advised to contact RN CM for any additional information or assistance needed in the future. Jana TINEON RN CM
== END | disposition home or self-care (01) ==
LOC: US 09:04 → MEDOUTP 10:15
PROVIDERS: Internal Medicine Nephrology; PCP Family Medicine Geriatric Medicine; Referring Provider Internal Medicine Gastroenterology; Visit Provider Internal Medicine Gastroenterology
DX: K74.60 Unspecified cirrhosis of liver (principal); R18.8 Other ascites
CPT/HCPCS: 96365; 96366 ×2; 49083; 36415; 80069; 83970; 85027; P9047; A4216

== ENCOUNTER → 2021-09-24 | Outpatient (CLI) | payer MEDICARE, SELFPAY ==
[2021-09-24 12:34] LABS: Absolute Lymphocyte Count 0.77 X10^3/uL (0.83-4.51); Absolute Neutrophil Count 3.6 X10^3/uL (2.0-7.7); Basophil# 0.04 X10^3/uL; Basophil% 0.8 % (0-1); Eosinophil# 0.23 X10^3/uL; Eosinophils% 4.5 % (0-5); Hematocrit 34.1 % (37-47); Lymphocyte # 0.77 X10^3/ul (0.83-4.51); Lymphocyte % 15.1 % (19-41); Mean Corp Hgb Conc 32.3 g/dL (32-36); Mean Corpuscular Hgb 28.9 pg (27.0-32.0); Mean Corpuscular Volume 89.7 fL (81-99); Mean Platelet Vol. 10.3 fl (6.2-12.0); Monocyte# 0.43 X10^3/uL; Monocyte% 8.4 % (0-10); NRBC Flagged by Analyzer 0 % (0-5); Neutrophil % 70.8 % (47-70); Platelet Count 134 K/mm3 (150-450); RBC Distribution Width CV 15.5 % (11.6-14.6); RBC Distribution Width SD 50.4 fl (35.1-43.9); White Blood Count 5.1 K/mm3 (4.4-11.0)
[2021-09-24 12:39] LABS: Vitamin D,25 Hydroxy 35.2 ng/mL
[2021-09-24 13:00] LABS: ALB/GLOB Ratio 0.8 RATIO (0.9-2.4); AST(SGOT) 18 U/L (15-37); Alanine Aminotransfer ALT/SGPT 20 U/L (13-56); Albumin, Serum 3.1 g/dL (3.2-5.0); Alkaline Phosphatase 74 U/L (45-117); Anion Gap 7 (5-15); BUN 26 mg/dL (7-18); BUN/Creat Ratio 19.4 RATIO (10-20); Calcium,Total 8.6 mg/dL (8.5-10.1); Chloride 108 mmol/L (98-107); Cholesterol 122 mg/dL (200); Creatinine, Serum 1.34 mg/dL (0.55-1.02); EST Glomerular Filtration Rate 43 mL/min (>60); Est Glom Filt Rate - Afr Amer 52 mL/min (>60); Globulin 3.7 g/dL (2.2-4.2); Glucose 164 mg/dL (74-106); High Density Lipoprotein 30 mg/dL; Potassium 3.9 mmol/L (3.5-5.1); Protein, Total 6.8 g/dL (6.4-8.2); Sodium Level 140 mmol/L (136-145); Thyroid Stim Hormone (TSH) 1.53 uIU/mL (0.358-3.74); Triglycerides 84 mg/dL; Very Low Density Lipoprotein 17 mg/dL (5-40)
== END | disposition home or self-care (01) ==
LOC: POLAB3 10:45
PROVIDERS: PCP Family Medicine Geriatric Medicine; Visit Provider Family Medicine Geriatric Medicine
DX: E55.9 Vitamin D deficiency, unspecified (principal); E78.5 Hyperlipidemia, unspecified; R53.83 Other fatigue
CPT/HCPCS: 36415; 80053; 80061; 82306; 84443; 85025

== ENCOUNTER → 2021-10-01 | Outpatient (CLI) | payer MEDICARE, SELFPAY ==
--- NOTE | 2021-10-01 09:35 | US_ITS ---
PROCEDURE: Ultrasound guided paracentesis. DATE OF EXAMINATION: 10/01/2021. INDICATION: Female, 61 years old. Ascites. PHYSICIAN: Hernandez Eli M.D. TECHNIQUE: The risks, benefits, and alternatives to the procedure were explained to the patient. The specific risks of bleeding, infection, and damage to bowel were detailed and accepted. Witnessed informed consent was obtained. The abdomen was ultrasonographically surveyed. An appropriate pocket of fluid was identified at the right lower quadrant. The skin were cleaned and prepped in the usual sterile fashion. Using ultrasound guidance, the peritoneal cavity was accessed with a 5-Ethiopian paracentesis needle/catheter system. The trocar was removed. A total of 5300 ml of brad-colored fluid were removed from the peritoneal cavity. The catheter was removed and a sterile dressing was applied. The procedure was well tolerated. US/Paracentesis with US IMPRESSION: Ultrasound guided paracentesis. Electronically Signed: Hernandez Eli MD at 11:11 EDT ,
[2021-10-01 09:58] VITALS: BP 103/70; BP 123/74; BP 128/68; PULSE 62; PULSE 64; RESP 14; RESP 16; TEMP 36.6; O2SAT 97; O2SAT 99
[2021-10-01] MEDS: Lidocaine 2% (20 ml mdv) 20 ML Vial INFILT (09:58)
[2021-10-01 10:41] VITALS: BP 135/63; PULSE 60; RESP 16; TEMP 36; O2SAT 100; BMI 22.8
[2021-10-01] MEDS: Albumin Human 25% (100 mL) 25 GM/100 ML BAG IV ×2 (10:54→12:18)
[2021-10-01] MEDS: 0.9% Saline Lock 10 ML Syringe IV (10:58)
[2021-10-01 14:09] VITALS: BP 119/59; PULSE 70
== END | disposition home or self-care (01) ==
LOC: US 09:32
PROVIDERS: PCP Family Medicine Geriatric Medicine; Referring Provider Internal Medicine Gastroenterology; Visit Provider Internal Medicine Gastroenterology
DX: K74.60 Unspecified cirrhosis of liver (principal); R18.8 Other ascites
CPT/HCPCS: 96365; 96366 ×2; 49083; P9047; A4216

== ENCOUNTER → 2021-10-14 | Outpatient (CLI) | payer MEDICARE, SELFPAY ==
--- NOTE | 2021-10-14 10:52 | US_ITS ---
PROCEDURE: Ultrasound guided paracentesis. DATE OF EXAMINATION: 10/14/2021. INDICATION: Female, 61 years old. Ascites. PHYSICIAN: Hernandez Eli M.D. TECHNIQUE: The risks, benefits, and alternatives to the procedure were explained to the patient. The specific risks of bleeding, infection, and damage to bowel were detailed and accepted. Witnessed informed consent was obtained. The abdomen was ultrasonographically surveyed. An appropriate pocket of fluid was identified at the right lower quadrant. The skin were cleaned and prepped in the usual sterile fashion. Using ultrasound guidance, the peritoneal cavity was accessed with a 5-Mozambican paracentesis needle/catheter system. The trocar was removed. A total of 3550 ml of brad-colored fluid were removed from the peritoneal cavity. The catheter was removed and a sterile dressing was applied. The procedure was well tolerated. US/Paracentesis with US IMPRESSION: Ultrasound guided paracentesis. Electronically Signed: Hernandez Eli MD at 12:30 EDT ,
[2021-10-14 11:12] VITALS: BP 141/82; BP 148/87; BP 156/90; PULSE 73; PULSE 75; RESP 16; RESP 18; O2SAT 98; O2SAT 99
[2021-10-14] MEDS: Lidocaine 2% (20 ml mdv) 20 ML Vial INFILT (11:12)
[2021-10-14] MEDS: Albumin Human 25% (100 mL) 25 GM/100 ML BAG IV ×2 (12:25→13:51)
[2021-10-14 15:43] VITALS: BP 135/62; PULSE 72; RESP 16; TEMP 37.1; O2SAT 98
== END | disposition home or self-care (01) ==
LOC: US 10:51
PROVIDERS: PCP Family Medicine Geriatric Medicine; Referring Provider Internal Medicine Gastroenterology; Visit Provider Internal Medicine Gastroenterology
DX: K74.60 Unspecified cirrhosis of liver (principal); R18.8 Other ascites
CPT/HCPCS: 96365; 96366 ×2; 49083; J7050; P9047